=== PATIENT | female | born 1980 | race Caucasian/White ===

== ENCOUNTER 2023-07-25 10:54 | Outpatient (OUT) | payer OTHER, SELFPAY ==
--- NOTE | 2023-07-25 10:59 | ECG_ITS ---
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
== END 2023-07-25 10:55 | disposition home or self-care (01) ==
PROVIDERS: PCP Family Medicine; Visit Provider Obstetrics & Gynecology
DX: Z01.810 Encounter for preprocedural cardiovascular examination (principal); N83.299 Other ovarian cyst, unspecified side
CPT/HCPCS: 93005

== ENCOUNTER 2023-08-01 06:10 | Day surgery (SDC) | payer OTHER, SELFPAY ==
[2023-07-25 11:38] VITALS: BP 134/86; PULSE 59; RESP 16; TEMP 36.2; O2SAT 98; BMI 35.1
[2023-08-01] VITALS (11 sets, daily range): BP systolic 120–144; BP diastolic 69–110; PULSE 58–93; RESP 11–22; TEMP 36.1–36.4; O2SAT 92–98; BMI 34.1
--- OUTSIDE RECORDS SUMMARY | 2023-08-01 06:13 | XMS_ITS | CCD ---
Author Name Unknown Address [facility] [place] [address] Organization [facility] Care Team Providers Care Insole Cementer Name Role Phone Elisa Antony Unavailable Mariya Finn Unavailable Ele Friend Unavailable MD Elin Patel Primary Care Provider DO Surinder Del Castillo Attending Provider [phone] Malcolm Iglesias Unavailable DR SUKHDEEP SHAH Attending Unavailable DR SUKHDEEP SHAH Consulting Unavailable DR SUKHDEEP SHAH Admitting Unavailable MD Elin Patel Primary Care Provider [phone] SHREYA Ivey Attending Provider MD Malcolm Iglesias Attending Provider [phone] MD Maxx Cornelius Attending Provider Self, Referral Attending Provider Unavailable MD Elin Patel Primary Care Provider MD Elin Patel Attending Provider MD Elin Patel Primary Care Provider [phone] DO Surinder Del Castillo Attending Provider Elin Patel Primary Care Unavailable Maxx Cornelius Admitting UnavailMaxx Pa Attending UnavailElin Rosado Primary Care Unavailable Hafsa Ivey Admitting Unavailable Hafsa Ivey Attending Unavailable Elin Patel Attending Unavailable Elin Patel Admitting Unavailable Elin Patel Primary Care Unavailable Elin Patel Primary Care Unavailable Malcolm Iglesias Admitting Unavailable Malcolm Iglesias Attending Unavailable Surinder Del Castillo Admitting Unavailable Surinder Del Castillo Attending Unavailable Elin Patel Primary Care Unavailable NO FAMILY, PHYSICIAN Primary Care Unavailable Elisa Antony Admitting Unavailable Elisa Antony Attending Unavailable Self, Referral Admitting Unavailable Self, Referral Attending Unavailable Elin Patel Primary Care Unavailable Unavailable Primary Care Provider UnavailElin Rosado MD Primary Care Provider SAHIL SANTOYO Referring Unavailable ELIN PATEL Primary Care Unavailable Elin Patel MD Primary Care Provider ELIN PATEL Referring Unavailable ELIN PATEL Primary Care Unavailable Elin Patel MD Primary Care Provider ELIN PATEL Attending Unavailable SUKHDEEP SHAH Attending Unavailable SUKHDEEP SHAH Referring Unavailable Allergies Allergy Classification Reported Allergen(s) Allergy Type Date of Onset Reaction(s) Facility (1 source) Desonide Drug Allergy 6 [facility] Repository (3 sources) Wound Dressing Adhesive Propensity to adverse reactions to drug 3 [facility] Medications Current Medications Medication Drug Class(es) Dates Sig (Normalized) Sig (Original) amylase [id number] unt / lipase 83227 unt / protease [id number] unt delayed release oral capsule (10 sources) Start: 05-07-2022 take [id number] capsules by mouth three times daily at mealtime Jsuvqr-Sjwkqeue-Mfey ase (Creon) 36,000-114,000- 180,000 unit Capsule,Delayed Release(Dr/Ec) Active 1 CAP PO Three times daily May 07, 2022 1:00am administer with meals and/or snacks aspirin 81 mg delayed release oral tablet (8 sources) Platelet Aggregation Inhibitor, Nonsteroidal Anti-inflammatory Drug Start: 05-07-2022 take 81 mg by mouth once daily Aspirin Active 81 MG PO Daily May 07, 2022 1:00am cholecalciferol 0.125 mg oral tablet (10 sources) Vitamin D Start: 05-07-2022 take 1 tablet by mouth once daily Cholecalciferol (Vitamin D3) (Vitamin D3) 125 mcg (5,000 unit) Tablet Active 125 MCG PO Daily May 07, 2022 1:00am take 1 tablet by mouth in the mo rning cholecalciferol, vitamin D3, 2,000 units tablet Take 1 tablet (2,000 Units total) by mouth in the morning. 0 Active cholecalciferol (Vitamin D-3) 50 MCG (2000 UT) tablet 1 (one) time each day at the same time. 0 Active Cholecalciferol 50 MCG (2000 UT) TABS every 24 hours 0 Active Creon 31934 UNIT (14 sources) Start: 10-04-2020 take 1 capsule by mouth three times daily Creon 38653 UNIT 1 CAPSULE Orally THREE TIMES A DAY for 30 days September, Active estradiol 1 mg oral tablet (10 sources) Estrogen Start: 05-07-2022 take 1 mg by mouth once daily Estradiol Active 1 MG PO Daily May 07, 2022 1:00am off 1 week; repeat cycle End: 06-26-2023 take 1 tablet by mouth in the morning estradioL (ESTRACE) 0.5 mg tablet Take 1 tablet (0.5 mg total) by mouth in the morning. 0 Active take 1 tablet by mirian th in the morning estradioL (ESTRACE) 0.5 mg tablet Take 1 tablet (0.5 mg total) by mouth in the morning. 0 Active estradiol 0.5 mg / norethindrone acetate 0.1 mg oral tablet (2 sources) Estrogen Start: 02-24-2023 estradiol-norethindrone 0.5-0.1 MG tablet famotidine 20 mg oral tablet (1 source) Histamine-2 Receptor Antagonist Start: 06-13-2023 End: 07-13-2023 take 1 tablet by mouth once daily famotidine (PEPCID) 20 MG tablet Indications: Chronic GERD Take 1 tablet by mouth nightly 30 tablet 0 06/13/2023 07/13/2023 Active fexofenadine (13 sources) Histamine-1 Receptor Antagonist [place] Active FLUoxetine 40 mg oral capsule (20 sources) Serotonin Reuptake Inhibitor Start: 04-22-2023 take 1 capsule by mouth in the morning FLUoxetine (PROzac) 40 MG capsule Indications: Medication refill Take 1 capsule (40 mg) by mouth in the morning. 90 capsule 1 04/22/2023 Active Start: 05-07-2022 take 40 mg by mouth once daily Fluoxetine Active 40 MG PO Daily May 07, 2022 1:00am PROzac Active 24 hr metoprolol succinate 25 mg extended release oral tablet (20 sources) beta-Adrenergic Padmaja Start: 02-25-2023 take 1 tablet by mouth once daily metoprolol succinate (TOPROL XL) 25 MG extended release tablet Take 1 tablet by mouth daily 0 02/25/2023 Active Start: 11-01-2022 take 1 tablet by mirian th every twenty-four hours in the morning metoprolol succinate XL (TOPROL XL) 25 mg 24 hr tablet Take 1 tablet (25 mg total) by mouth in the morning. 0 11/01/2022 Active Start: 05-07-2022 take 25 mg by mouth once daily Metoprolol Succinate Active 25 MG PO Daily May 07, 2022 1:00am Metoprolol Succi jamil Active nitrofurantoin, macrocrystals 25 mg / nitrofurantoin, monohydrate 75 mg oral capsule (6 sources) Nitrofuran Antibacterial Start: 06-15-2022 take 1 capsule by mouth every twelve hours Macrobid 100 MG 1 cap(s) Orally 2 times a day for 5 day(s) May, Active Start: 03-06-2021 take 1 capsule by mo ut every twelve hours Macrobid 100 MG 1 cap(s) Orally bid for 5 day(s) Feb, Active pantoprazole 40 mg delayed release oral tablet (20 sources) Proton Pump Inhibitor Start: 03-01-2019 take 40 mg by mouth once daily Pantoprazole Active 40 MG PO Daily May 07, 2022 1:00am Start: 03-01-2019 take 1 tablet by mirian th every twelve hours Pantoprazole Sodium 40 MG 1 tablet Orally twice a day for 90 days Feb, Active phenazopyridine hydrochloride 200 mg oral tablet (6 sources) Start: 06-15-2022 take 1 tablet by mouth every eight hours Pyridium 200 MG 1 tablet after meals Orally Three times a day for 2 day(s) May, Active Start: 03-06-2021 take 2 tablets by mo uth every eight hours Pyridium 100 MG 2 tablets after meals Orally Three times a day for 2 day(s) Feb, Active rosuvastatin calcium 5 mg oral tablet (20 sources) HMG-CoA Reductase Inhibitor Start: 05-07-2022 take 1 tablet by mouth in the morning rosuvastatin (Crestor) 5 MG tablet Indications: Medication refill Take 1 tablet (5 mg) by mouth in the morning. 90 tablet 1 05/14/2023 Active Crestor Active Vitamin D3 (13 sources) Vitamin D3 Activ e Completed/Discontinued Medications Medication Drug Class(es) Dates Sig (Normalized) Sig (Original) dicyclomine hydrochloride 20 mg oral tablet (14 sources) Anticholinergic Start: 03-01-2019 take 1 tablet by mouth every twelve hours Dicyclomine HCl 20 MG 1 tablet Orally TWICE A DAY for 30 days Feb, Not-Taking 12 hr hyoscyamine sulfate 0.375 mg extended release oral tablet (14 sources) Start: 08-17-2020 take 1 tablet by mouth every twelve hours Levbid 0.375 MG 1 tablet Orally every 12 hrs for 30 day(s) Jul, Not-Taking loratadine 10 mg oral tablet (14 sources) take 1 tablet by mouth every twenty-four hours Claritin 10 MG 1 tablet Orally Once a day OTC Not-Taking Phentermine (14 sources) Sympathomimetic Amine Anorectic Adipex-P Not-Taking predniSONE (14 sources) predniSONE Not-Taking raNITIdine (14 sources) Histamine-2 Receptor Antagonist Ranitidine HCl Not-Taking sertraline 100 mg oral tablet (20 sources) Serotonin Reuptake Inhibitor Start: 03-03-2019 End: 05-07-2022 take 1 tablet by mouth once daily Sertraline (Zoloft) 100 mg Tablet Discontinued 100 MG PO Daily March 03, 2019 12:00am May 07, 2022 2:16pm take 2 tablets by [facility] every twenty-four hours Sertraline HCl 100 MG 2 tablet Orally Once a day Not-Taking Problems Active Problems Problem Classification Problem Date Documented Da te Episodic/Chronic Abdominal pain (2 sources) Pain in female pelvis; Translations: [Pelvic and perineal pain] 06-26-2023 Episodic Disorders of lipid metabolism (3 sources) Hypercholesterolemia; Translations: [Pure hypercholesterolemia, unspecified] Onset: 3 06-13-2023 Chronic Esophageal disorders (20 sources) Gastroesophageal reflux disease; Translations: [Gastro-esophageal reflux disease without esophagitis] Onset: 2 Resolved: 2 03-08-2019 Chronic Essential hypertension (3 sources) Hypertensive disorder; Translations: [Essential (primary) hypertension] Onset: 3 06-13-2023 Chronic Immunizations and screening for infectious disease (6 sources) Contact with and (suspected) exposure to other viral communicable diseases; Translations: [Encounter for screening for human papillomavirus (HPV)] Onset: 1 Resolved: 2 Episodic Mood disorders (3 sources) Depressive disorder; Translations: [Depression] Onset: 3 06-13-2023 Chronic Other gastrointestinal disorders (14 sources) Irritable bowel syndrome with diarrhea; Translations: [Irritable bowel syndrome with diarrhea] Chronic Other gastrointestinal disorders (14 sources) Incontinence of feces; Translations: [Full incontinence of feces] Episodic Other gastrointestinal disorders (7 sources) Difficulty swallowing; Translations: [Dysphagia, unspecified] Episodic Other nervous system disorders (3 sources) Difficulty walking; Translations: [Difficulty in walking, not elsewhere classified] Onset: 3 06-13-2023 Chronic Other nutritional; endocrine; and metabolic disorders (3 sources) Obesity; Translations: [Obesity, unspecified] Onset: 3 06-13-2023 Chronic Other screening for suspected conditions (not mental disorders or infectious disease) (4 sources) Encounter for screening for malignant neoplasm of cervix; Translations: [ENC SCREENING MALIG NEOPLASM CERV] Onset: 2 Episodic Other upper respiratory disease (3 sources) Seasonal allergic rhinitis; Translations: [Other seasonal allergic rhinitis] Onset: 3 06-13-2023 Chronic Ovarian cyst (2 sources) Cyst of ovary; Translations: [Unspecified ovarian cyst, unspecified side] 06-25-2023 Episodic Residual codes; unclassified (3 sources) Unrefreshed by sleep; Translations: [Other sleep disorders] Onset: 3 06-13-2023 Chronic Residual codes; unclassified (1 source) Sleep apnea; Translations: [Sleep apnea, unspecified] 06-20-2023 Chronic Residual codes; unclassified (1 source) Sleep apnea, unspecified; Translations: [Sleep apnea, unspecified] Onset: 4 Chronic Unclassified (1 source) Pain in left shoulder; Translations: [Pain in left shoulder] Onset: 3 Unclassified (1 source) Encounter for screening mammogram for malignant neoplasm of breast; Translations: [Encounter for screening mammogram for malignant neoplasm of breast] Onset: 3 Urinary tract infections (2 sources) Acute cystitis with hematuria; Translations: [Urinary tract infection, site not specified] Onset: 1 Resolved: 1 Episodic Past or Other Problems Problem Classification Problem Date Documented Da te Episodic/Chronic Genitourinary symptoms and ill-defined conditions (4 sources) Dysuria; Translations: [Hematuria, unspecified] Onset: 03-06-2021 Resolved: 03-06-2021 Episodic Other gastrointestinal disorders (20 sources) Irritable bowel syndrome; Translations: [Mixed irritable bowel syndrome] Onset: 11-12-2022 Resolved: 01-20-2023 03-08-2019 Chronic Other gastrointestinal disorders (3 sources) Dysphagia, unspecified; Translations: [Dysphagia, unspecified] Onset: 05-30-2022 Episodic Other gastrointestinal disorders (3 sources) Dysphagia; Translations: [Dysphagia, unspecified] Onset: 11-12-2022 06-13-2023 Episodic Other injuries and conditions due to external causes (2 sources) Muscle strain; Translations: [Other injury of unspecified body region, initial encounter] Onset: 11-12-2022 Resolved: 01-20-2023 01-20-2023 Episodic Other upper respiratory infections (1 source) Acute upper respiratory infection, unspecified; Translations: [Viral upper respiratory illness J06.9] Onset: 02-14-2021 Resolved: 02-14-2021 Episodic Pancreatic disorders (not diabetes) (3 sources) Pancreatic insufficiency; Translations: [Other specified diseases of pancreas] Onset: 01-20-2023 06-13-2023 Episodic Residual codes; unclassified (2 sources) Obstructive sleep apnea syndrome; Translations: [Obstructive sleep apnea (adult) (pediatric)] Onset: 11-12-2022 Resolved: 01-20-2023 01-20-2023 Chronic Unclassified (10 sources) Unclassified (2 sources) Exposure to COVID-19 virus Z20.822 Onset: 12-30-2021 Resolved: 12-30-2021 Results Test Name Value Interpretation Reference Range Facility US PELVISon 07-04-2023 US PELVIS EXAMINATION: US PELVIS HISTORY: Ovarian cyst. Pelvic pain. TECHNIQUE: Transabdominal and transvaginal ultrasound evaluation of the pelvis was performed. COMPARISON: Ultrasound March 20, 2018 FINDINGS: The uterus is absent. Right ovary is enlarged secondary to 2 large cysts, measuring approximately 14.7 x 6.6 x 10.7 cm. 2 simple appearing cyst of the right ovary measure 5.6 x 3.1 x 2.9 cm and 7.9 x 8.4 x 7.1 cm respectively. No definitive solid vascular component. Left ovary is normal in size measuring 3.3 x 2.2 x 1.8 cm. Normal sonographic appearance of the left ovary. No adnexal mass. There is no free fluid in the pelvis. IMPRESSION: 2 large simple appearing cysts of the right ovary. Consider continued surveillance with follow-up ultrasound in 3 months recommended. ELECTRONICALLY SIGNED BY: Quentin Vera, DO Normal Not Available CBC with Auto Differentialon 06-13-2023 Basophils (Bld) [#/Vol] 0.03 10*3/uL [facility] Basophils/100 WBC (Bld) 0 % 0 - 2 % B [facility] Eosinophils (Bld) [#/Vol] 0.11 10*3/uL [facility] Eosinophils/100 WBC (Bld) 2 % 0 - 5 % [facility] Erythrocyte distribution width (RBC) [Ratio] 12.3 % 12.1 - 15.2 % [facility] Hematocrit (Bld) [Volume fraction] 40.0 % 36.0 - 46.0 % [facility] Hemoglobin (Bld) [Mass/Vol] 13.4 g/dL 12.0 - 16.0 g/dL [facility] Immature granulocytes (Bld) [#/Vol] 0.02 10*3/uL [facility] Immature granulocytes/100 WBC (Bld) 0 % 0 - 5 % [facility] Lymphocytes/100 WBC (Bld) 32 % 15 - 40 % [facility] Lymphocytes/100 WBC (Bld) 2.24 % [facility] MCH (RBC) [Entitic mass] 29.8 pg 26.0 - 34.0 pg [facility] MCHC (RBC) [Mass/Vol] 33.5 g/dL 31.0 - 37.0 g/dL [facility] MCV (RBC) [Entitic vol] 88.9 fL 80.0 - 100.0 fL [facility] Monocytes/100 WBC (Bld) 7 % 4 - 8 % B ON [facility] Monocytes/100 WBC (Bld) 0.46 % B ON [facility] Neutrophils/100 WBC (Bld) 59 % 47 - 75 % [facility] Platelet mean volume (Bld) [Entitic vol] 8.3 fL 6.0 - 12.0 fL [facility] Platelets (Bld) [#/Vol] 341 10*3/uL [facility] RBC (Bld) [#/Vol] 4.50 10*6/uL 4.00 - 5.2 0 m/uL [facility] Segmented neutrophils/100 WBC (Bld) 4.18 % [facility] WBC other (Bld) [#/Vol] 7.0 B ON [facility] CBC with Diffon 06-13-2023 Abs. Basophil 0.03 k/uL Normal 0.00-0.20 [facility] Comment on above: Performed By: #### C P, CDP #### [facility] [address] [place] [id number] Heating Technician: Angel Valdes MD Abs.Imm.Granulocyte 0.02 k/uL Normal 0.00-0.30 [facility] Comment on above: Performed By: #### C P, CDP #### [facility] [address] [facility] [facility] [place] [address] Heating Technician: Angel Valdes MD Abs.Neutrophil (Seg) 4.18 k/uL Normal 2.5-7.[address] [facility] Comment on above: Performed By: #### C P, CDP #### [facility] [address] [place], [place] [id number] Heating Technician: Angel Valdes MD Basophils/100 WBC (Bld) 0 % Normal 0-2 M [facility] Comment on above: Performed By: #### C P, CDP #### [facility] [address] [place], [place] [id number] Heating Technician: Angel Valdes MD Eosinophils (Bld) [#/Vol] 0.11 10*3/uL Normal 0.00-0.40 [facility] Comment on above: Performed By: #### C P, CDP #### [facility] [address] [place], [place] [id number] Heating Technician: Angel Valdes MD Eosinophils/100 WBC (Bld) 2 % Normal 0-5 [facility] Comment on above: Performed By: #### C P, CDP #### [facility] [address] [place], [place] [id number] Heating Technician: Angel Valdes MD Erythrocyte distribution width (RBC) [Ratio] 12.3 % Normal 12.1-15.2 [facility] Comment on above: Performed By: #### C P, CDP #### [facility] [address] [place], [place] [id number] Heating Technician: Angel Valdes MD Hematocrit (Bld) [Volume fraction] 40.0 % Normal 36.0-46.0 [facility] Comment on above: Performed By: #### C P, CDP #### [facility] [address] [place], [place] [id number] Heating Technician: Angel Valdes MD Hemoglobin (Bld) [Mass/Vol] 13.4 g/dL Normal 12.0-16.0 [facility] Comment on above: Performed By: #### C P, CDP #### [facility] [address] [place], [place] [id number] Heating Technician: Angel Valdes MD Immature granulocytes/100 WBC (Bld) 0 % Normal 0-5 [facility] Comment on above: Performed By: #### C P, CDP #### [facility] [address] [place] [address] Heating Technician: Angel Valdes MD Lymphocytes (Bld) [#/Vol] 2.24 10*3/uL Normal 1.00-4.80 [facility] Comment on above: Performed By: #### C P, CDP #### [facility] [address] [place] [address] Heating Technician: Angel Valdes MD Lymphocytes/100 WBC (Bld) 32 % Normal 15-40 [facility] Comment on above: Performed By: #### C P, CDP #### [facility] [address] [place] [address] Heating Technician: Angel Valdes MD MCH (RBC) [Entitic mass] 29.8 pg Normal 26.0-34.0 [facility] Comment on above: Performed By: #### C P, CDP #### [facility] [address] [place] [address] Heating Technician: Angel Valdes MD MCHC (RBC) [Mass/Vol] 33.5 g/dL Normal 31.0-37.0 [facility] Comment on above: Performed By: #### C P, CDP #### [facility] [address] [place] [address] Heating Technician: Angel Valdes MD MCV (RBC) [Entitic vol] 88.9 fL Normal 80.0-100.0 [facility] Comment on above: Performed By: #### C P, CDP #### [facility] [address] [place] [address] Heating Technician: Angel Valdes MD Monocytes (Bld) [#/Vol] 0.46 10*3/uL Normal 0.00-1.00 [facility] Comment on above: Performed By: #### C P, CDP #### [facility] [address] [place] [address] Heating Technician: Angel Valdes MD Monocytes/100 WBC (Bld) 7 % Normal 4-8 M [facility] Comment on above: Performed By: #### C P, CDP #### [facility] [address] [place] [address] Heating Technician: Angel Valdes MD Neutrophil (Seg) 59 % Normal 47-75 [facility] Comment on above: Performed By: #### C P, CDP #### [facility] [address] [place] [address] Heating Technician: Angel Valdes MD Platelet mean volume (Bld) [Entitic vol] 8.3 fL Normal 6.0-12.0 [facility] Comment on above: Performed By: #### C P, CDP #### [facility] [address] [place] [address] Heating Technician: Angel Valdes MD Platelets (Bld) [#/Vol] 341 10*3/uL Normal 140-450 [facility] Comment on above: Performed By: #### C P, CDP #### [facility] [address] [place], [place] [id number] Heating Technician: Angel Valdes MD RBC (Bld) [#/Vol] 4.50 10*6/uL Normal 4.00-5.20 [facility] Comment on above: Performed By: #### C P, CDP #### [facility] [address] [place] [address] Heating Technician: Angel Valdes MD WBC (Bld) [#/Vol] 7.0 10*3/uL Normal 3.5-11.0 [facility] Comment on above: Performed By: #### C P, CDP #### [facility] [address] [place] [address] Heating Technician: Angel Valdes MD Comp Metabolic Profon 2023 Albumin [Mass/Vol] 4.2 g/dL Normal 3.5-5.2 [facility] Comment on above: Performed By: #### C P, CDP #### [facility] [address] [place] [address] Heating Technician: Angel Valdes MD Alkaline Phos 75 U/L Normal 35-104 [facility] Comment on above: Performed By: #### C P, CDP #### [facility] [address] [place] [address] Heating Technician: Angel Valdes MD ALT [Catalytic activity/Vol] 16 U/L Normal 5-33 [facility] Comment on above: Performed By: #### C P, CDP #### [facility] [address] [place] [address] Heating Technician: Angel Valdes MD Anion gap [Moles/Vol] 11 mmol/L Normal 9-17 [facility] Comment on above: Performed By: #### C P, CDP #### [facility] [address] [place] [address] Heating Technician: Angel Valdes MD AST [Catalytic activity/Vol] 15 U/L Normal <32 [facility] Comment on above: Performed By: #### C P, CDP #### [facility] [address] [facility] [place] [id number] Heating Technician: Angel Valdes MD Bilirubin [Mass/Vol] 0.3 mg/dL Normal 0.3-1.[address] [facility] Comment on above: Performed By: #### C P, CDP #### [facility] [address] [place], [place] [id number] Heating Technician: Angel Valdes MD BUN/CRE Ratio 11 Normal 9-20 [facility] Comment on above: Performed By: #### C P, CDP #### [facility] [address] [place], [place] [id number] Heating Technician: Angel Valdes MD Calcium [Mass/Vol] 10.3 mg/dL Normal 8.6-10.4 [facility] Comment on above: Performed By: #### C P, CDP #### [facility] [address] [place], [place] [id number] Heating Technician: Angel Valdes MD Chloride [Moles/Vol] 101 mmol/L Normal 98-[address] [facility] Comment on above: Performed By: #### C P, CDP #### [facility] [address] [place], [place] [id number] Heating Technician: Angel Valdes MD CO2 [Moles/Vol] 25 mmol/L Normal 20-31 [facility] Comment on above: Performed By: #### C P, CDP #### [facility] [address] [place] [address] Heating Technician: Angel Valdes MD Creatinine [Mass/Vol] 0.7 mg/dL Normal 0.5-0.9 [facility] Comment on above: Performed By: #### C P, CDP #### [facility] [address] [place] [address] Heating Technician: Angel Valdes MD GFR/1.73 sq M.predicted among non-blacks MDRD (S/P/Bld) [Vol rate/Area] mL/min/{1.73_m2} Normal >60 [facility] Comment on above: Result Comment: These results are not intended for use in patients <18 years of age. eGFR results are calculated without a race factor using the 2020 CKD-EPI equation. Careful clinical correlation is recommended, particularly when comparing to results calculated using previous equations. The CKD-EPI equation is less accurate in patients with extremes of muscle mass, extra-renal metabolism of creatine, excessive creatine ingestion, or following therapy that affects renal tubular secretion. Performed By: #### C P, CDP #### [facility] [address], [place] [id number] Heating Technician: Angel Valdes MD Glucose [Mass/Vol] 120 mg/dL High 70-99 [facility] Comment on above: Performed By: #### C P, CDP #### [facility] [address], [place] [id number] Heating Technician: Angel Valdes MD Potassium [Moles/Vol] 4.0 mmol/L Normal 3.7-5.3 [facility] Comment on above: Performed By: #### C P, CDP #### [facility] [address], [place] [id number] Heating Technician: Angel Valdes MD Protein [Mass/Vol] 7.4 g/dL Normal 6.4-8.3 [facility] Comment on above: Performed By: #### C P, CDP #### [facility] [address], [place] [id number] Heating Technician: Angel Valdes MD Sodium [Moles/Vol] 137 mmol/L Normal 135-144 [facility] Comment on above: Performed By: #### C P, CDP #### [facility] [address], [place] [id number] Heating Technician: Angel Valdes MD Urea nitrogen [Mass/Vol] 8 mg/dL Normal 6-20 [facility] Comment on above: Performed By: #### C P, CDP #### [facility] [address], [place] [id number] Heating Technician: Angel Valdes MD Comprehensive Metabolic Pane [facility] 06-13-2023 Albumin [Mass/Vol] 4.2 g/dL 3.5 - 5.2 g/dL [facility] ALP [Catalytic activity/Vol] 75 U/L 35 - 104 U/L [facility] ALT [Catalytic activity/Vol] 16 U/L 5 - 33 U/L [facility] Anion gap [Moles/Vol] 11 mmol/L 9 - 17 mmol/L [facility] AST [Catalytic activity/Vol] 15 U/L NINF - 32 U/L [facility] Bilirubin [Mass/Vol] 0.3 mg/dL 0.3 - 1 .2 mg/dL [facility] Calcium [Mass/Vol] 10.3 mg/dL 8.6 - 10. 4 mg/dL [facility] Chloride [Moles/Vol] 101 mmol/L 98 - 10 7 mmol/L [facility] CO2 [Moles/Vol] 25 mmol/L 20 - 31 mmol/L [facility] Creatinine [Mass/Vol] 0.7 mg/dL 0.5 - 0.9 mg/dL [facility] GFR/1.73 sq M.predicted MDRD (S/P/Bld) [Vol rate/Area] - PINF [facility] Comment on above: These results are not intended for use in patients <18 years of age. eGFR results are calculated without a race factor using the 2020 CKD-EPI equation. Careful clinical correlation is recommended, particularly when comparing to results calculated using previous equations. The CKD-EPI equation is less accurate in patients with extremes of muscle mass, extra-renal metabolism of creatine, excessive creatine ingestion, or following therapy that affects renal tubular secretion. Glucose [Mass/Vol] 120 mg/dL High 70 - 99 mg/dL [facility] Interpretation and review of laboratory results Abnormal [facility] Potassium [Moles/Vol] 4.0 mmol/L 3.7 - 5.3 mmol/L [facility] Protein [Mass/Vol] 7.4 g/dL 6.4 - 8.3 g/dL [facility] Sodium [Moles/Vol] 137 mmol/L 135 - 144 mmol/L [facility] Urea nitrogen [Mass/Vol] 8 mg/dL 6 - 20 mg/dL [facility] Urea nitrogen/Creatinine [Mass ratio] 11 mg/mg 9 - 20 [facility] Alanine aminotransferase [En zymatic activity/volume] in Serum or PlasmaOrdered By: Surinder Del Castillo on 12-24-2022 ALT [Catalytic activity/Vol] 16 U/L 7-52 [facility] Albumin [Mass/volume] in Ser um or Plasma by Bromocresol green (BCG) dye binding methoOrdered By: Surinder Del Castillo on 12-24-2022 Albumin BCG dye [Mass/Vol] 4.3 g/dL 3.5-5.7 [facility] Alkaline phosphatase [Enzyma tic activity/volume] in Serum or PlasmaOrdered By: Surinder Del Castillo on 12-24-2022 ALP [Catalytic activity/Vol] 66 U/L 34-104 [facility] Aspartate aminotransferase [ Enzymatic activity/volume] in Serum or PlasmaOrdered By: Surinder Del Castillo on 12-24-2022 AST [Catalytic activity/Vol] 16 U/L 13-39 [facility] Basophils Auto (Bld) [#/Vol] Ordered By: Surinder Del Castillo on 12-24-2022 Basophils (Bld) [#/Vol] 0.0 10*3/uL 0.0-0.2 [facility] Basophils/100 WBC Auto (Bld) Ordered By: Surinder Del Catsillo on 12-24-2022 Basophils/100 WBC (Bld) 0.5 % . [facility] Bilirubin.total [Mass/volume ] in Serum or PlasmaOrdered By: Surinder Del Castillo on 12-24-2022 Bilirubin [Mass/Vol] 0.3 mg/dL 0.3-1.0 [facility] Calcium [Mass/volume] in Ser um or PlasmaOrdered By: Surinder Del Castillo on 12-24-2022 Calcium [Mass/Vol] 11.0 mg/dL 8.6-10.[address] [facility] Carbon dioxide, total [Moles /volume] in Serum or PlasmaOrdered By: Surinder Del Castillo on 12-24-2022 CO2 [Moles/Vol] 29.3 mmol/L 21.0-31.0 [facility] Chloride [Moles/volume] in S carlitos or PlasmaOrdered By: Surinder Del Castillo on 12-24-2022 Chloride [Moles/Vol] 105 mmol/L 98-107 [facility] Cholesterol [Mass/volume] in Serum or PlasmaOrdered By: Surinder Del Castillo on 12-24-2022 Cholesterol [Mass/Vol] 156 mg/dL 140-200 [facility] Comment on above: Chol less than 200 m g/dl low riskChol 201-239 mg/dl borderline riskChol 240 mg/dl and greater high risk Cholesterol in LDL Calc [Mas s/Vol]Ordered By: Surinder Del Castillo on 12-24-2022 Cholesterol in LDL [Mass/Vol] 48 mg/dL 0-100 [facility] Comment on above: LDL ATP III CLASSIFI CATIONLDL less than 100 mg/dL OptimalLDL 100-129 mg/dL Near or above optimalLDL 130-159 mg/dL Borderline highLDL 160-189 mg/dL HighLDL greater than 189 mg/dL Very high Cholesterol in VLDL Calc [Ma ss/Vol]Ordered By: Surinder Del Castillo on 12-24-2022 Cholesterol in VLDL [Mass/Vol] 60 mg/dL [facility] Creatinine [Mass/volume] in Serum or PlasmaOrdered By: Surinder Del Castillo on 12-24-2022 Creatinine [Mass/Vol] 0.74 mg/dL 0.60-1.20 [facility] Employee Comp Metabolic Pane laverne 12-24-2022 Albumin [Mass/Vol] 4.3 g/dL Normal 3.5-5.[address] [facility] Comment on above: Performed By: #### P ILLAR LIPID, PILLAR TSH, PILLAR CBC, PILLAR CMP #### [facility] [address] [place] [address] [place] #### NICOTINE QUAL #### [facility] , Albumin/Globulin [Mass ratio] 1.7 {ratio} Normal [facility] Comment on above: Performed By: #### P ILLAR LIPID, PILLAR TSH, PILLAR CBC, PILLAR CMP #### [facility] [address] [place] [address] [place] #### NICOTINE QUAL #### [facility] , ALP [Catalytic activity/Vol] 66 U/L Normal 34-104 [facility] Comment on above: Performed By: #### P ILLAR LIPID, PILLAR TSH, PILLAR CBC, PILLAR CMP #### [facility] [address] [place] [address] [place] #### NICOTINE QUAL #### [facility] , ALT [Catalytic activity/Vol] 16 U/L Normal 7-52 [facility] Comment on above: Performed By: #### P ILLAR LIPID, PILLAR TSH, PILLAR CBC, PILLAR CMP #### [facility] [address] [place] [address] [place] #### NICOTINE QUAL #### [facility] , Anion gap [Moles/Vol] 10.4 mmol/L Normal 6.0-15.0 [facility] Comment on above: Performed By: #### P ILLAR LIPID, PILLAR TSH, PILLAR CBC, PILLAR CMP #### [facility] [address] [place] [address] [place] #### NICOTINE QUAL #### [facility] , AST [Catalytic activity/Vol] 16 U/L Normal 13-39 [facility] Comment on above: Performed By: #### P ILLAR LIPID, PILLAR TSH, PILLAR CBC, PILLAR CMP #### [facility] [address] [place] [address] #### NICOTINE QUAL #### [facility] , Bilirubin [Mass/Vol] 0.3 mg/dL Normal 0.3-1.0 [facility] Comment on above: Performed By: #### P ILLAR LIPID, PILLAR TSH, PILLAR CBC, PILLAR CMP #### [facility] [address] [place] [address] [place] #### NICOTINE QUAL #### [facility] , Calcium [Mass/Vol] 11.0 mg/dL High 8.6-10.[address] [facility] Comment on above: Performed By: #### P ILLAR LIPID, PILLAR TSH, PILLAR CBC, PILLAR CMP #### [facility] [address] [place] [address] [place] #### NICOTINE QUAL #### [facility] , Chloride [Moles/Vol] 105 mmol/L Normal 98-107 [facility] Comment on above: Performed By: #### P ILLAR LIPID, PILLAR TSH, PILLAR CBC, PILLAR CMP #### [facility] [address] [place] [address] [place] #### NICOTINE QUAL #### [facility] , CO2 [Moles/Vol] 29.3 mmol/L Normal 21.0-31.0 [facility] Comment on above: Performed By: #### P ILLAR LIPID, PILLAR TSH, PILLAR CBC, PILLAR CMP #### [facility] [address] [place] [address] [place] #### NICOTINE QUAL #### [facility] , Creatinine [Mass/Vol] 0.74 mg/dL Normal 0.60-1.20 [facility] Comment on above: Performed By: #### P ILLAR LIPID, PILLAR TSH, PILLAR CBC, PILLAR CMP #### [facility] [address] [place] [address] [place] #### NICOTINE QUAL #### [facility] , GFR/1.73 sq M.predicted MDRD (S/P/Bld) [Vol rate/Area] mL/min/{1.73_m2} Normal [facility] Comment on above: Performed By: #### P ILLAR LIPID, PILLAR TSH, PILLAR CBC, PILLAR CMP #### [facility] [address] [place] [address] [place] #### NICOTINE QUAL #### [facility] , Globulin (S) [Mass/Vol] 2.5 g/dL Normal [facility] Comment on above: Performed By: #### P ILLAR LIPID, PILLAR TSH, PILLAR CBC, PILLAR CMP #### [facility] [address] [place] [address] [place] #### NICOTINE QUAL #### [facility] , Glucose [Mass/Vol] 84 mg/dL Normal 70-[address] [facility] Comment on above: Performed By: #### P ILLAR LIPID, PILLAR TSH, PILLAR CBC, PILLAR CMP #### [facility] [address] [place] [address] #### NICOTINE QUAL #### [facility] , Potassium [Moles/Vol] 3.7 mmol/L Normal 3.5-5.1 [facility] Comment on above: Performed By: #### P ILLAR LIPID, PILLAR TSH, PILLAR CBC, PILLAR CMP #### [facility] [address] [place] [address] [place] #### NICOTINE QUAL #### [facility] , Protein [Mass/Vol] 6.8 g/dL Normal 6.4-8.[address] [facility] Comment on above: Performed By: #### P ILLAR LIPID, PILLAR TSH, PILLAR CBC, PILLAR CMP #### [facility] [address] [place] [address] #### NICOTINE QUAL #### [facility] , Sodium [Moles/Vol] 141 mmol/L Normal 136-[address] [facility] Comment on above: Performed By: #### P ILLAR LIPID, PILLAR TSH, PILLAR CBC, PILLAR CMP #### [facility] [address] [place] [address] [place] #### NICOTINE QUAL #### [facility] , Urea nitrogen [Mass/Vol] 13 mg/dL Normal 7-25 [facility] Comment on above: Performed By: #### P ILLAR LIPID, PILLAR TSH, PILLAR CBC, PILLAR CMP #### [facility] [address] [place] [address] [place] #### NICOTINE QUAL #### [facility] , Employee Complete Blood Coun ton 12-24-2022 Basophils (Bld) [#/Vol] 0.0 10*3/uL Normal 0.0-0.2 [facility] Comment on above: Result Comment: PERF ORMED BY: [place] [address] PATHOLOGIST TUMBLER OPERATOR LUCERO AREVALO M.D. Performed By: #### P ILLAR LIPID, PILLAR TSH, PILLAR CBC, PILLAR CMP #### [facility] [address] [place] [address] #### NICOTINE QUAL #### [facility] , Basophils/100 WBC (Bld) 0.5 % Normal . [facility] Comment on above: Performed By: #### P ILLAR LIPID, PILLAR TSH, PILLAR CBC, PILLAR CMP #### [facility] [address] [place] [address] [place] #### NICOTINE QUAL #### [facility] , Eosinophils (Bld) [#/Vol] 0.1 10*3/uL Normal 0.0-0.45 [facility] Comment on above: Performed By: #### P ILLAR LIPID, PILLAR TSH, PILLAR CBC, PILLAR CMP #### [facility] [address] [place] [address] [place] #### NICOTINE QUAL #### [facility] , Eosinophils/100 WBC (Bld) 1.1 % Normal . [facility] Comment on above: Performed By: #### P ILLAR LIPID, PILLAR TSH, PILLAR CBC, PILLAR CMP #### [facility] [address] [place] [address] [place] #### NICOTINE QUAL #### [facility] , Erythrocyte distribution width (RBC) [Ratio] 12.8 % Normal 11.9-15.3 [facility] Comment on above: Performed By: #### P ILLAR LIPID, PILLAR TSH, PILLAR CBC, PILLAR CMP #### [facility] [address] [place] [address] [place] #### NICOTINE QUAL #### [facility] , Hematocrit (Bld) [Volume fraction] 38.9 % Normal 34.0-46.4 [facility] Comment on above: Performed By: #### P ILLAR LIPID, PILLAR TSH, PILLAR CBC, PILLAR CMP #### [facility] [address] [place] [address] #### NICOTINE QUAL #### [facility] , Hemoglobin (Bld) [Mass/Vol] 13.2 g/dL Normal 11.8-15.4 [facility] Comment on above: Performed By: #### P ILLAR LIPID, PILLAR TSH, PILLAR CBC, PILLAR CMP #### [address] #### NICOTINE QUAL #### [facility] , Lymphocytes (Bld) [#/Vol] 2.2 10*3/uL Normal 1.00-4.8 [facility] Comment on above: Performed By: #### P ILLAR LIPID, PILLAR TSH, PILLAR CBC, PILLAR CMP #### [address] #### NICOTINE QUAL #### [facility] , Lymphocytes/100 WBC (Bld) 30.4 % Normal . [facility] Comment on above: Performed By: #### P ILLAR LIPID, PILLAR TSH, PILLAR CBC, PILLAR CMP #### [address] #### NICOTINE QUAL #### [facility] , MCH (RBC) [Entitic mass] 30.8 pg Normal 24.7-34.3 [facility] Comment on above: Performed By: #### P ILLAR LIPID, PILLAR TSH, PILLAR CBC, PILLAR CMP #### [facility] [address] [place] [address] [place] #### NICOTINE QUAL #### [facility] , MCV (RBC) [Entitic vol] 90.9 fL Normal 80-100 [facility] Comment on above: Performed By: #### P ILLAR LIPID, PILLAR TSH, PILLAR CBC, PILLAR CMP #### [facility] [address] [place] [address] [place] #### NICOTINE QUAL #### [facility] , Mean Corpuscular HGB Conc 33.9 g/dL Normal 32.0-35.0 [facility] Comment on above: Performed By: #### P ILLAR LIPID, PILLAR TSH, PILLAR CBC, PILLAR CMP #### [facility] [address] [place] [address] [place] #### NICOTINE QUAL #### [facility] , Monocytes (Bld) [#/Vol] 0.7 10*3/uL Normal 0.0-0.8 [facility] Comment on above: Performed By: #### P ILLAR LIPID, PILLAR TSH, PILLAR CBC, PILLAR CMP #### [address] #### NICOTINE QUAL #### [facility] , Monocytes/100 WBC (Bld) 9.6 % Normal . [facility] Comment on above: Performed By: #### P ILLAR LIPID, PILLAR TSH, PILLAR CBC, PILLAR CMP #### [place] [address] [place] #### NICOTINE QUAL #### [facility] , Neutrophils (Bld) [#/Vol] 4.2 10*3/uL Normal 1.8-7.7 [facility] Comment on above: Performed By: #### P ILLAR LIPID, PILLAR TSH, PILLAR CBC, PILLAR CMP #### [facility] [address] [place] [address] [place] #### NICOTINE QUAL #### [facility] , Neutrophils/100 WBC (Bld) 58.4 % Normal . [facility] Comment on above: Performed By: #### P ILLAR LIPID, PILLAR TSH, PILLAR CBC, PILLAR CMP #### [facility] [address] [place] [address] [place] #### NICOTINE QUAL #### [facility] , NRBC% 0.2 /100{WBC} Normal 0-0.5 [facility] Comment on above: Performed By: #### P ILLAR LIPID, PILLAR TSH, PILLAR CBC, PILLAR CMP #### [facility] [address] [place] [address] #### NICOTINE QUAL #### [facility] , Platelet mean volume (Bld) [Entitic vol] 7.5 fL Normal 6.3-10.7 [facility] Comment on above: Performed By: #### P ILLAR LIPID, PILLAR TSH, PILLAR CBC, PILLAR CMP #### [facility] [address] [place] [address] #### NICOTINE QUAL #### [facility] , Platelets (Bld) [#/Vol] 404 10*3/uL Normal 150-450 [facility] Comment on above: Performed By: #### P ILLAR LIPID, PILLAR TSH, PILLAR CBC, PILLAR CMP #### [facility] [address] [place] [address] #### NICOTINE QUAL #### [facility] , RBC (Bld) [#/Vol] 4.28 10*6/uL Normal 3.60-5.00 [facility] Comment on above: Performed By: #### P ILLAR LIPID, PILLAR TSH, PILLAR CBC, PILLAR CMP #### [facility] [address] [place] [address] [place] #### NICOTINE QUAL #### [facility] , WBC (Bld) [#/Vol] 7.2 10*3/uL Normal 3.8-11.[address] [facility] Comment on above: Performed By: #### P ILLAR LIPID, PILLAR TSH, PILLAR CBC, PILLAR CMP #### [facility] [address] [place] [address] [place] #### NICOTINE QUAL #### [facility] , Employee Lipid Profileon Cholesterol [Mass/Vol] 156 mg/dL Normal 140-200 [facility] Comment on above: Result Comment: Chol less than 200 mg/dl low risk Chol 201-239 mg/dl borderline risk Chol 240 mg/dl and greater high risk Performed By: #### P ILLAR LIPID, PILLAR TSH, PILLAR CBC, PILLAR CMP #### [place] [address] [place] #### NICOTINE QUAL #### [facility] , Cholesterol in HDL [Mass/Vol] 48 mg/dL Normal 23-92 [facility] Comment on above: Result Comment: HDL CHOL ATP-III CLASSIFICATION Cardiovascular Risk HDL > or equal to 60 mg/dL LOW HDL < 40 mg/dL HIGH Performed By: #### P ILLAR LIPID, PILLAR TSH, PILLAR CBC, PILLAR CMP #### [address] #### NICOTINE QUAL #### [facility] , Cholesterol.total/Ashely sterol in HDL [Mass ratio] 3.3 {ratio} Normal <5.0 [facility] Comment on above: Performed By: #### P ILLAR LIPID, PILLAR TSH, PILLAR CBC, PILLAR CMP #### [facility] [address] [place] [address] #### NICOTINE QUAL #### [facility] , LDL Cholesterol,Calculated 48 mg/dL Normal 0-100 [facility] Comment on above: Result Comment: LDL ATP III CLASSIFICATION LDL less than 100 mg/dL Optimal LDL 100-129 mg/dL Near or above optimal LDL 130-159 mg/dL Borderline high LDL 160-189 mg/dL High LDL greater than 189 mg/dL Very high Performed By: #### P ILLAR LIPID, PILLAR TSH, PILLAR CBC, PILLAR CMP #### [facility] [address] [place] [address] [place] #### NICOTINE QUAL #### [facility] , Triglyceride w/Reflex 302 mg/dL High 0-149 [facility] Comment on above: Result Comment: TRIG ATP III CLASSIFICATION TRIG less than 150 mg/dL Normal TRIG 150-199 mg/dL Borderline high TRIG 200-500 mg/dL High TRIG greater than 500 mg/dL Very high Standard traceable to the Center for Disease Conrtrol and Prevention (CDC) test method. Performed By: #### P ILLAR LIPID, PILLAR TSH, PILLAR CBC, PILLAR CMP #### [place] [address] [place] #### NICOTINE QUAL #### [facility] , VLDL CHOLESTEROL 60 mg/dL Normal [facility] Comment on above: Performed By: #### P ILLAR LIPID, PILLAR TSH, PILLAR CBC, PILLAR CMP #### [facility] [address] [place] [address] [place] #### NICOTINE QUAL #### [facility] , Employee Thyroid Stim Hormon demi 12-24-2022 Employee Thyroid Stim Hormone 3.29 u[iU]/mL Normal 0.45-5.33 [facility] Comment on above: Result Comment: PERF ORMED BY: [place] [address] PATHOLOGIST TUMBLER OPERATOR LUCERO AREVALO M.D. Performed By: #### P ILLAR LIPID, PILLAR TSH, PILLAR CBC, PILLAR CMP #### [address] #### NICOTINE QUAL #### [facility] , Eosinophils Auto (Bld) [#/Vo l]Ordered By: Surinder Del Castillo on 12-24-2022 Eosinophils (Bld) [#/Vol] 0.1 10*3/uL 0.0-0.45 [facility] Eosinophils/100 WBC Auto (Bl d)Ordered By: Surinder Del Castillo on 12-24-2022 Eosinophils/100 WBC (Bld) 1.1 % . [facility] Erythrocyte distribution wid th Auto (RBC) [Ratio]Ordered By: Surinder Del Castillo on 12-24-2022 Erythrocyte distribution width (RBC) [Ratio] 12.8 % 11.9-15.3 [facility] Globulin Calc (S) [Mass/Vol] Ordered By: Surinder Del Castillo on 12-24-2022 Globulin (S) [Mass/Vol] 2.5 g/dL [facility] Glucose [Mass/volume] in Ser um or PlasmaOrdered By: Surinder Del Castillo on 12-24-2022 Glucose [Mass/Vol] 84 mg/dL 70-[address] [facility] Hematocrit Auto (Bld) [Volum e fraction]Ordered By: Surinder Del Castillo on 12-24-2022 Hematocrit (Bld) [Volume fraction] 38.9 % 34.0-46.4 [facility] Hemoglobin [Mass/volume] in BloodOrdered By: Surinder Del Castillo on 12-24-2022 Hemoglobin (Bld) [Mass/Vol] 13.2 g/dL 11.8-15.4 [facility] Leukocytes [#/volume] correc candy for nucleated erythrocytes in Blood by Automated counOrdered By: Surinder Del Castillo on 12-24-2022 WBC corrected for nucl RBC Auto (Bld) [#/Vol] 7.2 10*3/uL 3.8-11.6 [facility] Lymphocytes Auto (Bld) [#/Vo l]Ordered By: Surinder Del Castillo on 12-24-2022 Lymphocytes (Bld) [#/Vol] 2.2 10*3/uL 1.00-4.8 [facility] Lymphocytes/100 WBC Auto (Bl d)Ordered By: Surinder Del Castillo on 12-24-2022 Lymphocytes/100 WBC (Bld) 30.4 % . [facility] MCH Auto (RBC) [Entitic mass ]Ordered By: Surinder Del Castillo on 12-24-2022 MCH (RBC) [Entitic mass] 30.8 pg 24.7-34.3 [facility] MCHC Auto (RBC) [Mass/Vol]Or dered By: Surinder Del Castillo on 12-24-2022 MCHC (RBC) [Mass/Vol] 33.9 g/dL 32.0-35.0 [facility] MCV Auto (RBC) [Entitic vol] Ordered By: Surinder Del Castillo on 12-24-2022 MCV (RBC) [Entitic vol] 90.9 fL 80-100 [facility] Monocytes Auto (Bld) [#/Vol] Ordered By: Surinder Del Castillo on 12-24-2022 Monocytes (Bld) [#/Vol] 0.7 10*3/uL 0.0-0.8 [facility] Monocytes/100 WBC Auto (Bld) Ordered By: Surinder Del Castillo on 12-24-2022 Monocytes/100 WBC (Bld) 9.6 % . [facility] Neutrophils Auto (Bld) [#/Vo l]Ordered By: Surinder Del Castillo on 12-24-2022 Neutrophils (Bld) [#/Vol] 4.2 10*3/uL 1.8-7.7 [facility] Neutrophils/100 WBC Auto (Bl d)Ordered By: Surinder Del Castillo on 12-24-2022 Neutrophils/100 WBC (Bld) 58.4 % . [facility] Nicotine Metabolite, Qualon 12-24-2022 Nicotine Metabolite Negative Normal Cutoff=25 [facility] Comment on above: Result Comment: Perf ormed at: [facility] - [facility] [address] [id number] Heating Technician: Jesi Lombardo MD, Phone: [phone] PERFORMED BY: [place] [address] PATHOLOGIST TUMBLER OPERATOR LUCERO AREVALO M.D. Performed By: #### P ILLAR LIPID, PILLAR TSH, PILLAR CBC, PILLAR CMP #### [facility] [address] [place] [address] [place] #### NICOTINE QUAL #### [facility] , No Panel InformationOrdered By: Surinder Del Castillo on 12-24-2022 Estimated GFR (CKD-EPI) > 60.0 mL/Min [facility] Nicotine Metabolite Negative Cutoff=25 [facility] Comment on above: Performed at: [facility] [address] [id number] Director: Jesi Lombardo MD, Phone: [phone] Pharmacy Creatinine Clearance (Chem N/A [facility] Nucleated erythrocytes [Pres ence] in Blood by Automated countOrdered By: Surinder Del Castillo on 12-24-2022 Nucleated RBC Auto Ql (Bld) 0.2 /100{WBC} 0-0.5 [facility] Platelet mean volume Auto (B ld) [Entitic vol]Ordered By: Surinder Del Castillo on 12-24-2022 Platelet mean volume (Bld) [Entitic vol] 7.5 fL 6.3-10.7 [facility] Platelets Auto (Bld) [#/Vol] Ordered By: Surinder Del Castillo on 12-24-2022 Platelets (Bld) [#/Vol] 404 10*3/uL 150-450 [facility] Potassium [Moles/volume] in Serum or PlasmaOrdered By: Surinder Del Castillo on 12-24-2022 Potassium [Moles/Vol] 3.7 mmol/L 3.5-5.1 [facility] Protein [Mass/volume] in Ser um or PlasmaOrdered By: Surinder Del Castillo on 12-24-2022 Protein [Mass/Vol] 6.8 g/dL 6.4-8.[address] [facility] RBC Auto (Bld) [#/Vol]Ordere d By: Surinder Del Castillo on 12-24-2022 RBC (Bld) [#/Vol] 4.28 10*6/uL 3.60-5.00 [facility] Serum or plasma albumin/glob ulin mass ratioOrdered By: Surinder Del Castillo on 12-24-2022 Albumin/Globulin [Mass ratio] 1.7 {ratio} [facility] Serum or plasma anion gap de terminationOrdered By: Surinder Del Castillo on 12-24-2022 Anion gap [Moles/Vol] 10.4 mmol/L 6.0-15.0 [facility] Serum or plasma high density lipoprotein (HDL) cholesterol measurementOrdered By: Surinder Del Castillo on 12-24-2022 Cholesterol in HDL [Mass/Vol] 48 mg/dL 23-92 [facility] Comment on above: HDL CHOL ATP-III CLA SSIFICATION Cardiovascular RiskHDL > or equal to 60 mg/dL LOWHDL < 40 mg/dL HIGH Serum or plasma total choles terol/high density lipoprotein (HDL) cholesterol mass ratOrdered By: Surinder Del Castillo on 12-24-2022 Cholesterol.total/Ashely sterol in HDL [Mass ratio] 3.3 {ratio} <5.0 [facility] Sodium [Moles/volume] in Ser um or PlasmaOrdered By: Surinder Del Castillo on 12-24-2022 Sodium [Moles/Vol] 141 mmol/L 136-[address] [facility] Thyrotropin [Units/volume] i n Serum or PlasmaOrdered By: Surinder Del Castillo on 12-24-2022 TSH Qn 3.29 m[IU]/L 0.45-5.33 [facility] Triglyceride [Mass/volume] i n Serum or PlasmaOrdered By: Surinder Del Castillo on 12-24-2022 Triglyceride [Mass/Vol] 302 mg/dL 0-149 [facility] Comment on above: TRIG ATP III CLASSIF ICATIONTRIG less than 150 mg/dL NormalTRIG 150-199 mg/dL Borderline highTRIG 200-500 mg/dL High TRIG greater than 500 mg/dL Very highStandard traceable to the Center for Disease Conrtrol and Prevention (CDC) test method. Urea nitrogen [Mass/volume] in Serum or PlasmaOrdered By: Surinder Del Castillo on 12-24-2022 Urea nitrogen [Mass/Vol] 13 mg/dL 7-25 [facility] WBC Auto (Bld) [#/Vol]Ordere d By: Surinder Del Castillo on 12-24-2022 WBC (Bld) [#/Vol] 7.2 10*3/uL 3.8-11.[address] [facility] Urinalysis - AUTOMATEDon Appearance (U) cloudy [employer] Other Bilirubin Ql (U) small [employer] Other Color (U) orange-brown [facility] Other Glucose Ql (U) Negative [employer] Other Hemoglobin Ql (U) large [employer] Other Ketones Ql (U) Negative [employer] Other Leukocyte esterase Test strip Ql (U) Negative [employer] Other Nitrite Ql (U) Positive [employer] Other pH (U) 5.0 [pH] [employer] Other Protein Ql (U) 100 [employer] Other Specific gravity (U) [Rel density] 1.030 [facility] Other Urobilinogen (U) [Mass/Vol] 1.0 mg/dL [facility] Other Urinalysis - AUTOMATED No rt [employer] Other Urine Cultureon 06-15-2022 Bacteria identified Cx Nom (U) Reason for Exam Dysuria Urine <9,000 colonies/ml mixed bacterial skin contaminants 2 Days PERFORMED BY: [place] [address] PATHOLOGIST TUMBLER OPERATOR LUCERO AREVALO M.D. [facility] Comment on above: Performed By: #### C UU #### [address] Bacteria identified Cx Nom (U) [facility] Other MM screening mammo BI w/CADo n 06-06-2022 MM screening mammo BI w/CAD [facility] [place] [address] [place] [address] Mammography Report Signed Patient: Kathy Freeman MR#: [id number] 1 : 1980 Acct:[id number] Age/Sex: 41 / F ADM Date: 06/04/22 Loc: [place] Room: Type: [facility] Attending Dr: Referral Self Copies to: Elin Patel MD SELF,REFERRAL Ordering Provider: SELF,REFERRAL Date of Service: 06/04/22 MM/MM screening mammo BI w/CAD: SCREENING CLINICAL DATA: Screening for malignancy. BILATERAL SCREENING MAMMOGRAMS - FULL FIELD DIGITAL WITH TOMOSYNTHESIS AND CAD Tomosynthesis craniocaudal and mediolateral oblique views of both breasts were obtained using low- dose digital technique. Comparison is made to prior studies from June 21, 2015 through March 02, 2021. This examination was reviewed with the aid of CAD. There are scattered fibroglandular densities. A few benign calcifications are visualized. There are no developing masses, typically malignant calcifications or architectural distortion. There has been no significant interval change. MM/MM screening mammo BI w/CAD IMPRESSION: NO MAMMOGRAPHIC EVIDENCE OF MALIGNANCY. ROUTINE FOLLOW-UP IS RECOMMENDED IN ONE YEAR. RESULT CODE: 2 Benign Findings(s) DENSITY CODE: 2 (approximately 25-50% glandular) FOLLOW UP: 1YR The false-negative rate of mammography is approximately 10-percent. Management of a palpable abnormality must be based on clinical grounds. Patient was entered into a reminder system with a target due date for the next mammogram. Impression dictated by: Billie Thomas M.D.06/06/2022 3:27 PM Dictation Location: [facility] Transcribed By: TELLO 06/06/22 1527 Dictated By: Billie Thomas MD 06/06/22 1515 Signed By: 06/06/22 1527 [facility] SARS-CoV-2 (COVID-19) RNA NA A+probe Ql (Resp)on 05-28-2022 SARS-CoV-2 (COVID-19) RNA CHARLENE+probe Ql (Unsp spec) Negative [facility] Other [facility] 05-07-2022 L - -------- Specimen: [id number] Received: 05/08/22 Status: TATYANA [place] Num: [id number] Spec Type: Surgical Subm Dr: Malcolm Iglesias MD Tissues: A Esophagus Biopsy (ESOPHAGEAL BX) Procedures: PAS - LGRN, HE/2, Gross/Micro L4 -------- Age/ Patient Sex Location Account Attending Physician -------- Kathy Freeman 41/F [id number] Malcolm Iglesias MD -------- SPEC NUM: [id number] RECD: 05/08/22 STATUS: TATYANA FERRARO NUM: [id number] PETER: 05/07/22-[address] [facility] [address]: Malcolm Iglesias MD ENTERED: 05/08/[address] [facility] [address]: XOCHITL TYPE: Surgical DEPT: S ORDERED: PAS - LGRN, HE/2, Gross/Micro L4 ORDERED: PAS - LGRN, HE/2, Gross/Micro L4 Pathological Diagnosis Esophagus, biopsy: - Esophageal squamous epithelium with reactive change. - No eosinophilic infiltrate. - No glandular mucosa present. - PAS-F stain negative for fungal elements. Clinical Information Difficulty swallowing, rule out EOE Gross Description Received in formalin labeled with the patient's name, number and esophageal biopsy rule out EOE are two fragments of soft salvador tissue averaging 0.2 cm. Entirely submitted in one cassette labeled A1. Microscopic Description Two glass slides with H E stained material and one special stained slide have been examined. The microscopic findings support the above pathologic diagnosis. -------- Specimen: [id number] Received: 05/08/22 Status: TATYANA Ferraro Num: [id number] Spec Type: Surgical Subm Dr: Malcolm Iglesias MD Tissues: A Esophagus Biopsy (ESOPHAGEAL BX) Procedures: CLARISSE ARTHUR HE/Eliz, Gross/Micro L4 -------- Patient: Kathy Freeman [id number] (Continued) -------- Specimen: [id number] Received: 05/08/22 (Continued) Signed (signature on file) Homero Crow MD 05/09/22 1615 -------- Specimen: [id number] Received: 05/08/22 Status: TATYANA Ferraro Num: [id number] Spec Type: Surgical Subm Dr: Malcolm Iglesias MD Tissues: A Esophagus Biopsy (ESOPHAGEAL BX) Procedures: SANGITA MYERS/Eliz, Evelin/Mauricio L4 -------- Patient: Kathy Freeman [id number] (Continued) -------- Specimen: [id number] Received: 05/08/22 (Continued) CPT Codes 36312, 38216 -------- -------- Specimen: [id number] Received: 05/08/22 Status: TATYANA Ferraro Num: [id number] Spec Type: Surgical Subm Dr: Malcolm Iglesias MD Tissues: A Esophagus Biopsy (ESOPHAGEAL BX) Procedures: CLARISSE ARTHUR, SANGITA/2, Gross/Micro L4 -------- Patient: Kathy Freeman [id number] (Continued) -------- Signed (signature on file) Homero Crow MD 05/09/22 1615 [facility] SARS-CoV-2 (COVID-19) RNA NA A+probe Ql (Resp)on 05-03-2022 SARS-CoV-2 (COVID-19) RNA CHARLENE+probe Ql (Unsp spec) Negative [facility] Other PAP ACOG PANEL 2: 30 to 65on 02-05-2022 . . Normal [facility] Comment on above: Result Comment: Perf ormed at: WB Performed By: #### [id number] #### [facility] [address] [place] [address] Dr. Josue Panda Age Gdln ACOG Testing 30-65 [facility] Comment on above: Performed By: #### [id number] #### [facility] [address] [address] [address] Josue Panda DIAGNOSIS: Comment Normal [facility] Comment on above: Result Comment: NEGA TIVE FOR INTRAEPITHELIAL LESION OR MALIGNANCY. Performed at: WB Performed By: #### [id number] #### [facility] [address] [place] [address] Dr. Josue Panda HPV Aptima Negative Normal Negative [facility] Comment on above: Result Comment: This nucleic acid amplification test detects fourteen high-risk HPV types (16,18,31,33,35,39,45,51,52,56,58,59,66,68) without differentiation. Performed at: =G Performed By: #### [id number] #### [facility] [address] [place] [address] Dr. Josue Panda Methodology: Comment Normal [facility] Comment on above: Result Comment: This liquid based ThinPrep(R) pap test was screened with the use of an image guided system. Performed at: WB Performed By: #### [id number] #### [facility] [address] [place] [address] Dr. Josue Panda Note: Comment Normal [facility] Comment on above: Result Comment: The Pap smear is a screening test designed to aid in the detection of premalignant and malignant conditions of the uterine cervix. It is not a diagnostic procedure and should not be used as the sole means of detecting cervical cancer. Both false-positive and false-negative reports do occur. . Performed at: WB Performed By: #### [id number] #### [facility] [address] [place] [address] Dr. Josue Panda Performed by: Comment Normal [facility] Comment on above: Result Comment: Philip Valentino, Chief Controller Center (ASCP) Performed at: WB Performed By: #### [id number] #### [facility] [address] [place] [address] Dr. Josue Panda Specimen adequacy: Comment Normal [facility] Comment on above: Result Comment: Sati sfactory for evaluation. No endocervical cells are present. This is consistent with a history of hysterectomy. Performed at: WB Performed By: #### [id number] #### [facility] [address] [place] [address] Dr. Josue Panda Basophils Auto (Bld) [#/Vol] Ordered By: Surinder Del Castillo on 01-14-2022 Basophils (Bld) [#/Vol] 0.1 10*3/uL 0.0-0.2 [facility] Basophils/100 WBC Auto (Bld) Ordered By: Surinder Del Castillo on 01-14-2022 Basophils/100 WBC (Bld) 1.2 % . [facility] Blood hemoglobin measurement (mass/volume)Ordered By: Surinder Del Castillo on 01-14-2022 Hemoglobin (Bld) [Mass/Vol] 14.0 g/dL 11.8-15.4 [facility] Blood leukocytes automated c ount (number/volume)Ordered By: Surinder Del Castillo on 01-14-2022 WBC (Bld) [#/Vol] 5.6 10*3/uL 4.5-11.[address] [facility] Body fluid albumin measureme nt (mass/volume)Ordered By: Surinder Del Castillo on 01-14-2022 Albumin (Body fld) [Mass/Vol] 4.1 g/dL 3.2-5.5 [facility] Cholesterol [Mass/volume] in Serum or PlasmaOrdered By: Surinder Del Castillo on 01-14-2022 Cholesterol [Mass/Vol] 149 mg/dL 140-200 [facility] Comment on above: Chol less than 200 m g/dl low risk Chol 201-239 mg/dl borderline risk Chol 240 mg/dl and greater high risk Cholesterol in LDL Calc [Mas s/Vol]Ordered By: Surinder Del Castillo on 01-14-2022 Cholesterol in LDL [Mass/Vol] 75 mg/dL 0-100 [facility] Comment on above: LDL ATP III CLASSIFI CATION LDL less than 100 mg/dL Optimal LDL 100-129 mg/dL Near or above optimal LDL 130-159 mg/dL Borderline high LDL 160-189 mg/dL High LDL greater than 189 mg/dL Very high Cholesterol in VLDL Calc [Ma ss/Vol]Ordered By: Surinder Del Castillo on 01-14-2022 Cholesterol in VLDL [Mass/Vol] 33 mg/dL [facility] Creatinine and Glomerular fi ltration rate.predicted panel (S/P/Bld)Ordered By: Surinder Del Castillo on 01-14-2022 Creatinine [Mass/Vol] 0.84 mg/dL 0.44-1.03 [facility] Eosinophils Auto (Bld) [#/Vo l]Ordered By: Surinder Del Castillo on 01-14-2022 Eosinophils (Bld) [#/Vol] 0.1 10*3/uL 0.0-0.45 [facility] Eosinophils/100 WBC Auto (Bl d)Ordered By: Surinder Del Castillo on 01-14-2022 Eosinophils/100 WBC (Bld) 2.6 % . [facility] Erythrocyte distribution wid th Auto (RBC) [Ratio]Ordered By: Surinder Del Castillo on 01-14-2022 Erythrocyte distribution width (RBC) [Ratio] 12.7 % 11.9-15.3 [facility] Estimated glomerular filtrat ion rate (GFR) non- AmericanOrdered By: Surinder Del Castillo on 01-14-2022 GFR/1.73 sq M.predicted among non-blacks MDRD (S/P/Bld) [Vol rate/Area] > 60 mL/Min [facility] Globulin Calc (S) [Mass/Vol] Ordered By: Surinder Del Castillo on 01-14-2022 Globulin (S) [Mass/Vol] 2.8 g/dL [facility] Hematocrit Auto (Bld) [Volum e fraction]Ordered By: Surinder Del Castillo on 01-14-2022 Hematocrit (Bld) [Volume fraction] 41.5 % 34.0-46.4 [facility] - Chemistry and C hemistry - challengeOrdered By: Surinder Del Castillo on 01-14-2022 Glucose [Mass/Vol] 88 mg/dL 70-[address] [facility] - Hematology and Cell countsOrdered By: Surinder Del Castillo on 01-14-2022 Nucleated RBC/100 WBC (Bld) [Ratio] 0.2 % 0-0.5 [facility] Lymphocytes Auto (Bld) [#/Vo l]Ordered By: Surinder Del Castillo on 01-14-2022 Lymphocytes (Bld) [#/Vol] 1.9 10*3/uL 1.00-4.8 [facility] Lymphocytes/100 WBC Auto (Bl d)Ordered By: Surinder Del Castillo on 01-14-2022 Lymphocytes/100 WBC (Bld) 33.5 % . [facility] MCH Auto (RBC) [Entitic mass ]Ordered By: Surinder Del Castillo on 01-14-2022 MCH (RBC) [Entitic mass] 30.4 pg 24.7-34.3 [facility] MCHC Auto (RBC) [Mass/Vol]Or dered By: Surinder Del Castillo on 01-14-2022 MCHC (RBC) [Mass/Vol] 33.6 g/dL 32.0-35.0 [facility] MCV Auto (RBC) [Entitic vol] Ordered By: Surinder Del Castillo on 01-14-2022 MCV (RBC) [Entitic vol] 90.5 fL 80-100 [facility] Monocyte %Ordered By: Surinder Del Castillo on 01-14-2022 Monocyte % 169 mg/dL 35-149 [facility] Comment on above: TRIG ATP III CLASSIF ICATION TRIG less than 150 mg/dL Normal TRIG 150-199 mg/dL Borderline high TRIG 200-500 mg/dL High TRIG greater than 500 mg/dL Very high Standard traceable to the Center for Disease Conrtrol and Prevention (CDC) test method. Monocytes Auto (Bld) [#/Vol] Ordered By: Surinder Del Castillo on 01-14-2022 Monocytes (Bld) [#/Vol] 0.6 10*3/uL 0.0-0.8 [facility] Monocytes/100 WBC Auto (Bld) Ordered By: Surinder Del Castillo on 01-14-2022 Monocytes/100 WBC (Bld) 11.4 % . [facility] Neutrophils Auto (Bld) [#/Vo l]Ordered By: Surinder Del Castillo on 01-14-2022 Neutrophils (Bld) [#/Vol] 2.9 10*3/uL 1.8-7.7 [facility] Neutrophils/100 WBC Auto (Bl d)Ordered By: Surinder Del Castillo on 01-14-2022 Neutrophils/100 WBC (Bld) 51.3 % . [facility] No Panel InformationOrdered By: Surinder Del Castillo on 01-14-2022 Estimated GFR () > 60 mL/Min [facility] Comment on above: GFR estimated refere nce range: According to KDOQI guidelines, <60 ml/min/1.73m2 is sufficient to diagnose a patient with chronic kidney disease. Nicotine Metabolite Negative Cutoff=25 [facility] Comment on above: Performed at: [address] [id number] Heating Technician: Jesi Lombardo MD, Phone: [phone] Pharmacy Creatinine Clearance (Chem N/A [facility] Platelet mean volume Auto (B ld) [Entitic vol]Ordered By: Surinder Del Castillo on 01-14-2022 Platelet mean volume (Bld) [Entitic vol] 7.4 fL 6.3-10.7 [facility] Platelets Auto (Bld) [#/Vol] Ordered By: Surinder Del Castillo on 01-14-2022 Platelets (Bld) [#/Vol] 442 10*3/uL 150-450 [facility] Protein [Mass/volume] in Ser um or PlasmaOrdered By: Surinder Del Castillo on 01-14-2022 Protein [Mass/Vol] 6.9 g/dL 6.1-7.[address] [facility] RBC Auto (Bld) [#/Vol]Ordere d By: Surinder Del Castillo on 01-14-2022 RBC (Bld) [#/Vol] 4.59 10*6/uL 3.60-5.00 [facility] Serum or plasma alanine mott otransferase measurement without P-5'-P (enzymatic activiOrdered By: Surinder Del Castillo on 01-14-2022 ALT No additional P-5'-P [Catalytic activity/Vol] 60 U/L 10-60 [facility] Serum or plasma albumin/glob ulin mass ratioOrdered By: Surinder Del Castillo on 01-14-2022 Albumin/Globulin [Mass ratio] 1.5 {ratio} [facility] Serum or plasma alkaline riri sphatase measurement (enzymatic activity/volume)Ordered By: Surinder Del Castillo on 01-14-2022 ALP [Catalytic activity/Vol] 64 U/L 32-92 [facility] Serum or plasma aspartate am inotransferase measurement (enzymatic activity/volume)Ordered By: Surinder Del Castillo on 01-14-2022 AST [Catalytic activity/Vol] 51 U/L 10-42 [facility] Serum or plasma calcium zaria urement (mass/volume)Ordered By: Surinder Del Castillo on 01-14-2022 Calcium [Mass/Vol] 10.7 mg/dL 8.2-10.[address] [facility] Serum or plasma chloride anil surement (moles/volume)Ordered By: Surinder Del Castillo on 01-14-2022 Chloride [Moles/Vol] 98 mmol/L 95-114 [facility] Serum or plasma high density lipoprotein (HDL) cholesterol measurementOrdered By: Surinder Del Castillo on 01-14-2022 Cholesterol in HDL [Mass/Vol] 40 mg/dL 35-85 [facility] Comment on above: HDL CHOL ATP-III CLA SSIFICATION Cardiovascular Risk HDL > or equal to 60 mg/dL LOW HDL < 40 mg/dL HIGH Serum or plasma potassium me asurement (moles/volume)Ordered By: Surinder Del Castillo on 01-14-2022 Potassium [Moles/Vol] 3.7 mmol/L 3.5-5.1 [facility] Serum or plasma sodium measu rement (moles/volume)Ordered By: Surinder Del Castillo on 01-14-2022 Sodium [Moles/Vol] 136 mmol/L 136-[address] [facility] Serum or plasma total biliru bin measurement (mass/volume)Ordered By: Surinder Del Castillo on 01-14-2022 Bilirubin [Mass/Vol] 0.7 mg/dL 0.3-1.2 [facility] Serum or plasma total carbon dioxide measurement (moles/volume)Ordered By: Surinder Del Castillo on 01-14-2022 CO2 [Moles/Vol] 27.9 mmol/L 22.0-30.0 [facility] Serum or plasma total choles terol/high density lipoprotein (HDL) cholesterol mass ratOrdered By: Surinder Del Castillo on 01-14-2022 Cholesterol.total/Ashely sterol in HDL [Mass ratio] 3.7 {ratio} <5.0 [facility] Serum or plasma urea nitroge n measurement (mass/volume)Ordered By: Surinderkavitha Del Castillo on 01-14-2022 Urea nitrogen [Mass/Vol] 7 mg/dL 02-15 [facility] TSH DL <= 0.005 mIU/L QnOrde red By: Surinder Del Castillo on 01-14-2022 TSH Qn 2.11 m[IU]/L 0.45-5.33 [facility] COVID Quick Testingon 2021 Result Negative [facility] Other SARS-CoV-2 (COVID-19) RNA NA A+probe Ql (Resp)on 12-30-2021 SARS-CoV-2 (COVID-19) RNA CHARLENE+probe Ql (Unsp spec) Positive [facility] Other COVID Quick Testingon 2021 Result Negative [facility] Other Urine Cultureon 03-06-2021 Urine Culture >100,000 [facility] Other Urine Culture <16 [facility] Other Urine Culture <8 [facility] Other Urine Culture <4 [facility] Other Urine Culture <2 [facility] Other Urine Culture <1 [facility] Other Urine Culture <0.5 [facility] Other Urine Culture <32 [facility] Other Urine Culture <2/38 [facility] Other Vital Signs Date Time Vital Sign Value Performing Clinician Facility 06-20-2023 19:27-0500 Body height 166.[address] [facility] 06-20-2023 19:27-0500 Body mass index (BMI) [Ratio] 36.71 kg/m2 [facility] 06-20-2023 19:27-0500 Body weight 101.61 kg [facility] 06-15-2022 10:15-0500 Body height 170.18 cm Elisa Antony Other [facility] Other 06-15-2022 10:15-0500 Body mass index (BMI) [Ratio] 35.08 kg/m2 Elisa Antony Other [facility] Other 06-15-2022 10:15-0500 Body temperature 98 [degF] Elisa Antony Other [facility] Other 06-15-2022 10:15-0500 Body weight 101.61 kg Elisa Antony Other [facility] Other 06-15-2022 10:15-0500 Diastolic blood pressure 90 mm[Hg] Elisa Antony Other [facility] Other 06-15-2022 10:15-0500 Respiratory rate 18 /min Elisa Antony Other [facility] Other 06-15-2022 10:15-0500 SaO2% (BldA) [Mass fraction] 98 % Elisa Antony Other [facility] Other 06-15-2022 10:15-0500 Systolic blood pressure 140 mm[Hg] Elisa Cassia Other [facility] Other 05-30-2022 06:42-0500 Body height 166.37 cm MD Elin Patel Work Phone: [facility] 05-30-2022 06:42-0500 Body weight 104.32 kg MD Elin Patel Work Phone: [facility] 05-07-2022 15:30-0500 Diastolic blood pressure 86 mm[Hg] MD Elin Patel Work Phone: [facility] 05-07-2022 15:30-0500 Heart rate 63 /min MD Elin Patel Work Phone: [facility] 05-07-2022 15:30-0500 Respiratory rate 16 /min MD Elin Patel Work Phone: [facility] 05-07-2022 15:30-0500 SaO2% (BldA) [Mass fraction] 99 % MD Elin Patel Work Phone: [facility] 05-07-2022 15:30-0500 Systolic blood pressure 130 mm[Hg] MD Elin Patel Work Phone: [facility] 05-07-2022 13:19-0500 Body height 166.37 cm MD Elin Patel Work Phone: [facility] 05-07-2022 13:19-0500 Body temperature 98.6 [degF] MD Elin Patel Work Phone: [facility] 05-07-2022 13:19-0500 Body weight 104.32 kg MD Elin Patel Work Phone: [facility] 04-17-2021 10:45-0500 Body height 170.18 cm Elisa Antony Other [facility] Other 04-17-2021 10:45-0500 Body mass index (BMI) [Ratio] 33.67 kg/m2 Elisa Antony Other [facility] Other 04-17-2021 10:45-0500 Body weight 97.52 kg Elisa Antony Other [facility] Other 04-17-2021 10:45-0500 SaO2% (BldA) [Mass fraction] 97 % Elisa Cassia Other [facility] Other 03-06-2021 17:50-0400 Body height 170.18 cm Elisa Cassia Other [facility] Other 03-06-2021 17:50-0400 Body mass index (BMI) [Ratio] 33.67 kg/m2 Elisa Cassia Other [facility] Other 03-06-2021 17:50-0400 Body temperature 97.9 [degF] Elisa Cassia Other [facility] Other 03-06-2021 17:50-0400 Body weight 97.52 kg Elisa Cassia Other [facility] Other 03-06-2021 17:50-0400 Diastolic blood pressure 82 mm[Hg] Elisa Cassia Other [facility] Other 03-06-2021 17:50-0400 Respiratory rate 18 /min Elisa Cassia Other [facility] Other 03-06-2021 17:50-0400 SaO2% (BldA) [Mass fraction] 100 % Elisa Cassia Other [facility] Other 03-06-2021 17:50-0400 Systolic blood pressure 154 mm[Hg] Elisa Cassia Other [facility] Other 02-14-2021 10:45-0400 Body height 170.18 cm Elias Cassia Other [facility] Other 02-14-2021 10:45-0400 Body mass index (BMI) [Ratio] 33.67 kg/m2 Elisa Antony Other [facility] Other 02-14-2021 10:45-0400 Body temperature 97.5 [degF] Elisa Antony Other [facility] Other 02-14-2021 10:45-0400 Body weight 97.52 kg Elisa Antony Other [facility] Other 02-14-2021 10:45-0400 Respiratory rate 18 /min Elisa Antony Other [facility] Other 02-14-2021 10:45-0400 SaO2% (BldA) [Mass fraction] 97 % Elisa Antony Other [facility] Other Encounters Encounter Date Encounter Type Care Provider Facility Start: 07-16-2023 Telephone encounter Rachel burkett CNA Work Phone: [facility] Start: 07-04-2023 End: 07-05-2023 ambulatory SUKHDEEP ALYSSA Not Available Start: 06-26-2023 End: 06-26-2023 ambulatory SUKHDEEP ALYSSA Not Available Start: 06-26-2023 End: 06-26-2023 Office outpatient visit 15 minutes Sukhdeep Alyssa DO Work Phone: [facility] Comment on above: Cyst of ovary, unspe cified laterality; Pelvic pain in female Start: 06-20-2023 End: 06-24-[address] [facility] Comment on above: Sleep apnea, unspeci fied type Start: 06-13-2023 End: 06-14-2023 [facility] Start: 06-13-2023 End: 06-13-2023 Subsequent hospital visit by physician Elin Patel MD Work Phone: [facility] Laboratory Comment on above: Chronic GERD Start: 06-05-2023 Telephone encounter Elin vickers MD Work Phone: [facility] - Sleep Disorders Comment on above: Sleep Lab ([facility]) Start: 06-04-2023 End: 06-04-2023 ambulatory ELIN PATEL Not Available Start: 03-28-2023 End: 03-28-2023 ambulatory Malcolm Iglesias Other [facility] Other Start: 03-28-2023 Telephone encounter Malcolm [facility] Start: 01-06-2023 End: 01-06-2023 ambulatory Elin Patel Facility:[facility] Start: 01-06-2023 End: 01-06-2023 ambulatory MD Elin Patel Work Phone: [facility] Work Phone: Start: 01-06-2023 End: 01-06-2023 Discharged Recurring MD Elin Patel Work Phone: [facility]-Physical Therapy [place] Work Phone: Start: 12-24-2022 End: 12-24-2022 ambulatory Surinder Del Castillo Facility:[facility] Start: 12-24-2022 End: 12-24-2022 ambulatory MD Elin aPtel Work Phone: [facility] Work Phone: Start: 12-24-2022 End: 12-24-2022 Departed Referred MD Elin Patel Work Phone: [facility]-Employee Benefit Screening Start: 06-21-2022 End: 06-21-2022 ambulatory Malcolm Iglesias Other [employer] Other Start: 06-21-2022 Telephone encounter Malcolm Iglesias [facility] G[facility] Start: 06-15-2022 Office outpatient visit 25 minutes Elisa Antony [facility] Start: 06-15-2022 End: 06-15-2022 ambulatory PHYSICIAN WENDY PERES [facility] [employer] Other Start: 06-04-2022 End: 06-04-2022 ambulatory Referral Self Facility:[facility] Start: 06-04-2022 End: 06-04-2022 ambulatory MD Elin Patel Work Phone: [facility] Work Phone: Start: 06-04-2022 End: 06-04-2022 Patient encounter procedure MD Elin Patel Work Phone: [facility] Work Phone: Start: 05-30-2022 End: 05-30-2022 ambulatory Elin Patel Facility:[facility] Start: 05-30-2022 End: 05-30-2022 ambulatory MD Elin Patel Work Phone: [facility] Work Phone: Start: 05-30-2022 End: 05-30-2022 Patient encounter procedure MD Elin Patel Work Phone: [facility]Digestive [facility] Work Phone: Start: 05-28-2022 End: 05-28-2022 ambulatory Ele Friend Other [employer] Other Start: 05-28-2022 Office outpatient visit 5 minutes Ele Friend [facility] Start: 05-15-2022 End: 05-15-2022 ambulatory Malcolm Iglesias Other [employer] Other Start: 05-15-2022 Telephone encounter Malcolm Herrera Gastroenterology Start: 05-07-2022 End: 05-07-2022 ambulatory Elin Patel Facility:[facility] Start: 05-07-2022 End: 05-07-2022 Admission to same day surgery center MD Elin Patel Work Phone: [facility]Digestive [facility] Start: 05-07-2022 End: 05-07-2022 ambulatory MD Elin Patel Work Phone: [facility] Work Phone: Start: 05-03-2022 End: 05-03-2022 ambulatory Elisa Cassia Other [employer] Other Start: 05-03-2022 Nursing evaluation o f patient and report Elisa Antony [facility] Start: 04-23-2022 End: 04-23-2022 ambulatory Malcolm Iglesias Other [employer] Other Start: 04-23-2022 Telephone encounter Malcolm Herrera Gastroenterology Start: 03-19-2022 End: 03-19-2022 ambulatory Elin Patel Facility:[facility] Start: 03-19-2022 End: 03-19-2022 Patient encounter procedure MD Elin Patel Work Phone: [facility]-XRay [facility] [place] Start: 01-30-2022 End: 01-30-[address] SUKHDEEP SHAH [employer] Other Start: 01-30-2022 Telephone encounter Malcolm Herrera Gastroenterology Start: 01-14-2022 End: 01-14-2022 Departed Referred MD Elin Patel Work Phone: [facility]-Employee Benefit Screening Start: 01-07-2022 End: 01-07-2022 ambulatory Ele Friend Other [employer] Other Start: 01-07-2022 Office outpatient visit 5 minutes Ele Friend [facility] Start: 01-04-2022 End: 01-04-2022 Departed Referred MD Elin Patel Work Phone: [facility]-Employee Benefit Screening Start: 12-30-2021 End: 12-30-2021 ambulatory Elias Cassia Other [employer] Other Start: 12-30-2021 Nursing evaluation o f patient and report Elisa Cassia [facility] Start: 07-12-2021 End: 07-12-2021 ambulatory Mariya Finn Other [employer] Other Start: 07-12-2021 Office outpatient visit 5 minutes Mairya Finn [facility] Start: 04-17-2021 End: 04-17-2021 ambulatory Elisa Cassia Other [employer] Other Start: 04-17-2021 Office outpatient visit 15 minutes Elisa Cassia [facility] Start: 03-06-2021 Office outpatient visit 15 minutes Elisa Cassia [facility] Start: 02-14-2021 (URG) Urgent Care Visit Elisa Cassia [facility] Procedures Date Procedure Procedure Detail Performing Clinician Start: 06-13-2023 Comprehensive metabolic panel Sahil gonzalez [employer]LL[employer] SUPERINTENDENT Work Phone: Start: 06-04-2022 Mammography Sukhdeep Alyssa DO Work Phone: Start: 05-30-2022 Esophageal manometry MD Elin Patel Work Phone: Start: 05-07-2022 Esophagogastroduodenoscopy MD Elin ernandez Work Phone: Start: 03-06-2021 Piperacillin/tazobactam Elisa Cassia Other Start: 01-05-2020 Microscopic observation [Identifier] in Cervix by Cyto stain Sukhdeep Shah DO Work Phone: Plan of Treatment Date Care Activity Detail Author Start: 01-04-2025 Screening for malignant neoplasm of cervix [facility] Start: 06-20-2024 Adult BMI Screening Adult BMI Screening [facility] Start: 08-21-2023 End: 08-21-2023 Patient encounter procedure 08/21/2023 10:00 AM EDT Office Visit [facility] [address] [place] [address] Sukhdeep Shah DO [address] [place] [address] [facility] Start: 08-13-2023 End: 08-13-2023 Patient encounter procedure 08/13/2023 1:30 PM EDT Office Visit [facility] [address] [place] [id number] Donna Steen, WASH DRILLER-[employer] SUPERINTENDENT [address] [facility] [address] [place] [address] [facility] Start: 07-04-2023 End: 07-04-2023 Professional / ancillary services management 07/04/2023 11:15 AM EST Ancillary Procedure [facility] [address] [facility] [address] [place] [id number] [facility] Start: 07-02-2023 End: 07-02-2023 Patient encounter procedure 07/02/2023 2:15 PM EST Office Visit [facility] Gastroenterology [address] [place] [address] Sahil Santoyo, WASH DRILLER [employer] SUPERINTENDENT [address] [facility] [address] [place] [address] 3 wks/ pancreatic insufficiency [facility] Gastroenterology Comment on above: 3 wks/ pancreatic insufficiency Start: 06-20-2023 End: 06-20-2023 Clinical Support 06/20/2023 7:30 PM EST Clinical Support [facility] [address] [place] [address] [facility] Start: 06-04-2023 Screening for malignant neoplasm of breast Mammogram [facility] Start: 01-24-2023 COVID-19 Vaccine () COVID-19 Vaccine () [facility] Start: 01-24-2023 Influenza vaccination [facility] Start: 01-04-2023 Screening for malignant neoplasm of cervix Pap Smear [facility] Start: 12-24-2022 Influenza vaccination Flu vaccine (#1) [facility] Start: 06-04-2022 MG Breast - bilateral Screening [facility] Start: 06-04-2022 Screening mammography of bilateral breasts MM screening mammo BI w/CAD [facility] Start: 05-30-2022 [facility] Start: 05-07-2022 [facility] Start: 09-12-2019 DTaP,Tdap and Td Vaccines (2 - Td or Tdap) DTaP,Tdap and Td Vaccines (2 - Td or Tdap) [facility] Start: 09-12-2019 DTaP/Tdap/Td vaccine (2 - Td or Tdap) DTaP/Tdap/Td vaccine (2 - Td or Tdap) [facility] Start: 2008 Screening for malignant neoplasm of cervix [facility] Start: 11-04-1999 Screening for malignant neoplasm of cervix Pap Smear [facility] Start: 1996 Adult BMI Follow Up Plan Adult BMI Follow Up Plan [facility] Start: 1996 Adult BMI Screening Adult BMI Screening [facility] Start: 1996 Hepatitis C screening Hepatitis C screen [employer] [facility] Start: 1993 HIV screening HIV screen [facility] Start: 1990 Depression Monitoring Depression Monitoring [employer] [facility] Start: 1990 Depression Screening [facility] Start: 1990 Tobacco Screening Tobacco Screening [facility] Start: 1988 Lipid panel Lipids [facility] Start: 1978 Hepatitis B vaccine (1 of 3 - 3-dose series) Hepatitis B vaccine (1 of 3 - 3-dose series) [facility] US for US PELVIS-TRANS VAG IF INDICATED Imaging Routine Cyst of ovary, unspecified laterality Pelvic pain in female Ordered: 06/26/2023 [facility] Work Phone: Comment on above: Ordered: 06/26/2023 Immunizations Immunization Date Immunization Notes Care Provider [facility] 05-23-2021 influenza, injectabl e, quadrivalent, preservative free Sukhdeep Alyssa DO Work Phone: [facility] 05-23-2021 influenza virus vaccine, unspecified formulation Elin Patel MD Work Phone: [facility] 02-13-2021 influenza, injectabl e, quadrivalent, preservative free Sukhdeep Alyssa DO Work Phone: [facility] 09-20-2020 COVID-19 mRNA Comirnatsaroj (Pfizer) MD Elin Patel Work Phone: [facility] 08-23-2020 COVID-19 mRNA, Comirnatsaroj (Pfizer) MD Elin Patel Work Phone: [facility] 02-08-2020 influenza, injectabl e, quadrivalent, preservative free Sukhdeep Alyssa DO Work Phone: [facility] 09-11-2009 tetanus toxoid, redu pearl diphtheria toxoid, and acellular pertussis vaccine, adsorbed Sukhdeep Alyssa DO Work Phone: [facility] Healthcare Payers Date Payer Category Payer Unknown [id number] 2022 Self-pay [id number] 1980 Unknown [id number] 2.16.84 [id number] 1978 Unknown [id number] 2.16.8 [id number] 1978 Unknown [id number] 2.16.8 [id number] 1978 Unknown [id number] 2.16.84 [id number] 1978 Unknown [id number] 2.16.84 [id number] 1978 Unknown [id number] 2.16.84 [id number] 1959 Unknown [id number] 2. [id number] Unknown [id number] 2.16.8 [id number] Unknown [id number] 2.16.8 [id number] Unknown [id number] 2.16.8 [id number] Unknown [id number] 2.16.8 [id number] Unknown [id number] 2.16.8 [id number] Unknown [id number] 2.16.8 [id number] Unknown [id number] 2.16.8 [id number] Social History Date Type Detail Facility Start: 11-04-2018 End: 06-04-2023 Sex Assigned At [employer] Other Start: 1980 Sex Assigned At Female [facility] Start: 05-07-2022 End: 11-13-2022 Tobacco smoking status CTIS Never smoked tobacco (finding) [facility] Tobacco smoking stat us CTIS Tobacco smoking consumption unknown [facility] Start: 11-04-2018 End: 06-04-20[address] of [address] [facility] Housing Instability Unknown [facility] Start: 1980 Sex Assigned At Not on file [facility] Start: 11-13-2022 End: 06-13-2023 Tobacco use and exposure Smokeless tobacco non-user [facility] Start: 06-26-2023 Alcohol intake Lifetime non-drinker (finding) [facility] Start: 11-11-2022 Alcohol Comment Caffine intake: 1 cup a day [facility] Healthcare Goals Date Patient Goal Desired Activity /State Clinical Notes 02-14-2021 to 07-16-2023 Telephone Encounter - Rachel Kingsley CNA - 07/16/2023 12:37 PM ESTTelephone Encounter - Rachel Kingsley CNA - 07/16/2023 12:37 PM Melia Sutton LPN - 06/26/2023 11:00 AM EST Note Date & Type Note Facility 07-16-2023 Miscellaneous Notes Formattin g of this note might be different from the original. Left voicemail to change to video visit with SAURAV on 08/13. Sent letter documented in this encounter [facility] 07-16-2023 Telephone encount er Note Left voicemail to change to video visit with SAURAV on 08/13. Sent letter [facility] 06-26-2023 History of Presen t illness Narrative Reason for Appointment: Patient ID: Kathy Freeman is a 42 y.o. female who presents for Eval for ovarian cyst Patient presents today for Consult appointment. Current Medications: has a current medication list which includes the following prescription(s): estradiol-norethindrone, aspirin, cholecalciferol, fluoxetine, metoprolol succinate xl, creon, pantoprazole, and rosuvastatin. Medical History: Active Ambulatory Problems Diagnosis Date Noted Depression (CMS/HCC) 11/12/2022 Difficulty walking 11/12/2022 Dysphagia 11/12/2022 Hypercholesteremia ([facility]) 11/12/2022 Hypertension ([facility]) 11/12/2022 Obesity 11/12/2022 Seasonal allergic rhinitis 11/12/2022 Unrefreshed by sleep 11/12/2022 Pancreatic insufficiency ([facility]) 01/20/2023 Resolved Ambulatory Problems Diagnosis Date Noted Irritable bowel 11/12/2022 Muscle strain 11/12/2022 Obstructive sleep apnea syndrome 11/12/2022 Past Medical History: Diagnosis Date Breast cyst, left Fatigue, unspecified type Menopause Never smoked tobacco Obesity (BMI 30-39.9) Ovarian mass, right Seasonal allergies Family History Problem Relation Name Age of Onset Breast cancer Mother Cancer Mother Irritable bowel syndrome Maternal Grandmother Other (Bowel Rupture) Maternal Grandmother Cancer Maternal Grandfather Lung cancer Maternal Grandfather Cancer Paternal Grandmother Melanoma Paternal Grandmother Irritable bowel syndrome Paternal Grandfather Social History Tobacco Use Smoking status: Never Smokeless tobacco: Never Substance Use Topics Alcohol use: Never Comment: Caffine intake: 1 cup a day Drug use: Never Past Surgical History: Procedure Laterality Date CYSTOURETHROSCOPY 09/2011 DILATION AND CURETTAGE 06/2001 OTHER SURGICAL HISTORY 10/03/2015 Total hysterectomy with cystoscopy Allergies Allergen Reactions Wound Dressing Adhesive Other Reaction(s): rash, skin tears Tape Review of Systems: Review of Systems All other systems reviewed and are negative. Objective Physical Exam Constitutional: Appearance: Normal appearance. She is well-developed. Cardiovascular: Rate and Rhythm: Normal rate and regular rhythm. Pulmonary: Effort: Pulmonary effort is normal. Breath sounds: Normal breath sounds. Abdominal: General: Bowel sounds are normal. There is no distension. Palpations: Abdomen is soft. Tenderness: There is no abdominal tenderness. There is no guarding or rebound. Musculoskeletal: General: No swelling. Normal range of motion. Right lower leg: No edema. Left lower leg: No edema. Neurological: Mental Status: She is alert and oriented to person, place, and time. Skin: General: Skin is warm and dry. Psychiatric: Mood and Affect: Mood normal. Behavior: Behavior normal. Vitals and nursing note reviewed. Exam conducted with a pocketbook maker present. Vitals: Estimated body mass index is 32.14 kg/m as calculated from the following: Height as of 06/04/23: 5' 10 . Weight as of 06/04/23: 224 lb. BP: No LMP recorded. Patient is perimenopausal. Assessment/Plan Encounter Diagnosis Name Primary? Cyst of ovary, unspecified laterality Patient presents today to discuss ovarian cyst that patient voiced was very painful last week. Will order pelvic US for patient to have done. Patient to setup annual in 8 weeks and could then review US results at that time. PVU Documented by Beckie Sutton LPN on behalf of: Sukhdeep Shah DO documented in this encounter [facility] 06-05-2023 Miscellaneous Notes Formattin g of this note might be different from the original. 06/05 Received 06/04 order Called pt to schedule [facility] sched at [facility] on 06/20 Confirmation [facility]. Tee for approval [facility] order and 06/04 Amanda notes in MM Ok for HST. Ordered as referral. AUTH STARTED HST/NPR MMO primary documented in this encounter [facility] 06-05-2023 Telephone encount er Note 06/05 Received 06/04 order Called pt to schedule [facility] sched at [facility] on 06/20 Confirmation emailed [facility] Rout[facility] Dr. Tee for approval [facility] order and 06/04 [facility] 06-05-2023 Telephone encount er Note Ok for HST. Ordered as referral. [employer] Work Phone: 06-05-2023 Telephone encount er Note AUTH STARTED HST/NPR MMO primary [employer] 06-21-2022 Evaluation note Encounter Date Diagnosis Assessment Notes May, GERD (gastroesop hageal reflux disease) (ICD-10 - K21.9) [employer] Other 01-21-2023 Evaluation note* Encounter Date Diagnosis Assessment Notes Treatment Notes Treatment Clinical Notes May, Dysuria (ICD-10 - R30.0) May, Urinary tract infection, site not specified (ICD-10 - N39.0) Urinary tract infection (UTI) home care material was printed Drink plenty fluids, get plenty of rest. Take the Macrobid and Pyridium as prescribed until gone. Follow-up with your family physician if no improvement in 2 to 3 days. Take Tylenol or Motrin as needed for aches pains or fevers. May, Hematuria, unspecified (ICD-10 - R31.9) [employer] Other 01-03-2023 Evaluation note* Encounter Date Diagnosis Assessment Notes Treatment Notes Treatment Clinical Notes May, Contact with and (suspected) exposure to covid-19 (ICD-10 - Z20.822) [employer] Other 12-21-2022 Evaluation note* Encounter Date Diagnosis Assessment Notes Treatment Notes Treatment Clinical Notes Apr, Dysphagia (ICD-10 - R13.10) [employer] Other 12-13-2022 Procedure [facility]12-09-2022 Evaluation note* Encounter Date Diagnosis Assessment Notes Treatment Notes Treatment Clinical Notes Apr, Contact with and (suspected) exposure to other viral communicable diseases (ICD-10 - Z20.828) [employer] Other 11-29-2022 Evaluation note* Encounter Date Diagnosis Assessment Notes Treatment Notes Treatment Clinical Notes Mar, Difficulty in swallowing (ICD-10 - R13.10) [employer] Other 09-07-2022 Evaluation note* Encounter Date Diagnosis Assessment Notes Treatment Notes Treatment Clinical Notes Jan, GERD (gastroesophageal reflux disease) (ICD-10 - K21.9) [employer] Other 08-15-2022 Evaluation note* Encounter Date Diagnosis Assessment Notes Treatment Notes Treatment Clinical Notes Dec, Contact with and (suspected) exposure to other viral communicable diseases (ICD-10 - Z20.828) [employer] Other 08-07-2022 Evaluation note* Encounter Date Diagnosis Assessment Notes Treatment Notes Treatment Clinical Notes Dec, Exposure to COVID-19 virus (ICD-10 - Z20.822) [employer] Other 02-17-2022 Evaluation note* Encounter Date Diagnosis Assessment Notes Treatment Notes Treatment Clinical Notes Jun, Contact with and (suspected) exposure to other viral communicable diseases (ICD-10 - Z20.828) Jun, Other Additional time spent conducting pre-visit phone call, screening for symptoms, instructions on social distancing, application and removal of PPE, and cleaning of examination room, equipment and supplies was preformed. Patient education given for testing methodology and results. Patient care instructions given in writting by [facility] document. [employer] Other 11-23-2021 Evaluation note* Encounter Date Diagnosis Assessment Notes Treatment Notes Treatment Clinical Notes Mar, Contact with and (suspected) exposure to other viral communicable diseases (ICD-10 - Z20.828) Drink plenty fluids, get plenty of rest. Notify [facility] of your family members positive Covid result. Mar, Other Additional time spent conducting pre-visit phone call, screening for symptoms, instructions on social distancing, application and removal of PPE, and cleaning of examination room, equipment and supplies was preformed. Patient education given for testing methodology and results. Patient care instructions given in writting by [facility] Care At Home document. [employer] Other 10-12-2021 Evaluation note* Encounter Date Diagnosis Assessment Notes Treatment Notes Treatment Clinical Notes Feb, Dysuria (ICD-10 - R30.0) Feb, Acute cystitis with hematuria (ICD-10 - N30.01) Drink plenty fluids, get plenty of rest. Take the Macrobid as prescribed until gone. Take the Pyridium as prescribed until gone. Follow-up with your family physician if no improvement in 2 to 3 days [employer] Other 09-22-2021 Evaluation note* Encounter Date Diagnosis Assessment Notes Treatment Notes Treatment Clinical Notes Jan, Contact with and (suspected) exposure to other viral communicable diseases (ICD-10 - Z20.828) Jan, Viral upper respiratory illness (ICD-10 - J06.9) Viral upper respiratory infection: adult home care material was printed. Drink plenty fluids, get plenty of rest. Continue your allergy medications as usual. Tylenol or Motrin for aches pains or fevers. Follow-up with your family physician if no improvement in 2 to 3 days Jan, Other Additional time spent conducting pre-visit phone call, screening for symptoms, instructions on social distancing, application and removal of PPE, and cleaning of examination room, equipment and supplies was preformed. Patient education given for testing methodology and results. Patient care instructions given in writting by [facility] Care At Home document. Additional time spent conducting pre-visit phone call, screening for symptoms, instructions on social distancing, application and removal of PPE, and cleaning of examination room, equipment and supplies was preformed. Patient education given for testing methodology and results. Patient care instructions given in writting by [facility] Care At Home document. [employer] Other Evaluation noteNo assessment information available [facility] Work Phone: Evaluvnkeb noteNo [employer] Other Evaluation note* Diagnosis Chronic GERD documented in this encounter [facility]* Diagnosis Sleep apnea, unspecified type [facility] Diagnosis Cyst of ovary, unspecified laterality Pelvic pain in female Unspecified symptom associated with female genital organs documented in this encounter [facility] and physical note Author Malcolm Iglesias [facility] May 07, 2022 2:49pm Note Date/Time May 07, 2022 2:49pm [facility] [address] [place] [address] Gastroenterology H&P Signed Patient: Kathy Freeman MR#: [id number] : 1980 Acct:[id number] Age/Sex: 41 / F Adm Date: 2 Loc: Room: Type: [facility] Attending Dr: Malcolm Iglesias MD Copies to: MD Malcolm Callaway MD~ Date of Service: 05/07/2022 HISTORY & PHYSICAL: Patient's history with special attention to the cardiovascular, pulmonary systems and the current problem was reviewed with the patient immediately prior to the procedure. Present medications and doses reviewed in the EMR. Allergies and pertinent laboratory tests were also reviewedat this time in the EMR. The physical examination, as below, was then performed. Indication, assessment and HPI: 41-year-old female presents for EGD to evaluate dysphagia Family history of GI malignancy? No PHYSICAL EXAMINATION Mouth and Pharynx : Moist mucus membranes, normal dentition Cardiac: Regular rate, regular rhythm Pulmonary: Clear to auscultation bilaterally, no wheezing Neurological: Alert and oriented x3, no focal deficits noted Abdomen: Abdomen soft, non-tender REVIEW OF SYSTEMS Constitutional: Denies malaise, fevers Cardiovascular: Denies chest pain, palpitations Respiratory: Denies shortness of breath, wheezing Gastrointestinal: Per HPI Genitourinary: Denies dysuria, polyuria Musculoskeletal: Denies joint swelling, joint stiffness Neurological: Denies numbness, tingling Integumentary: Denies rashes, skin lesions Endocrine: Denies fatigue, weight loss Written informed consent obtained from the patient. Risks (including but not limited to perforation, infection, bloating, bleeding, need for emergent surgeryand loss of life), benefits and alternatives explained and questions answered. The patient verbalized understanding. Based on history patient is an appropriate candidate for the procedure. Malcolm Iglesias MD Documented By: Malcolm Iglesias MD 05/07/22 1449 Signed By: <Electronically signed by Malcolm Iglesias MD> 05/07/22 1449 [facility] Work Phone: [facility] Narrative - Reported* Type Description Date Medical History GERD Medical History depression Surgical History D&C 2001 Surgical History Partial Hysterectomy Hospitalization History Child x2 Hospitalization History Hysterectomy [facility] Other [facility] Narrative - Reported* Type Description Date Medical History GERD Medical History depression Medical History Hypertension Surgical History D&C 2001 Surgical History Partial Hysterectomy Hospitalization History Child x2 Hospitalization History Hysterectomy [facility] Other Hospital Discharge instructions Additional Instructions DISCHARGE INSTRUCTIONS FOR UPPER ENDOSCOPY WHAT TO EXPECT: - You may feel full, gassy or cramping after your procedure. In some cases, this may be from a few hours to a day. Walking may help relieve the discomfort. - Your throat may feel sore today from the scope that the doctor passed through your throat to visualize your stomach. Take a throat lozenge or suck on ice to ease the discomfort. - You may notice some streaks of blood in your sputum if the doctor has taken a biopsy. - You should begin to recover from anesthesia within 1 hour of the procedure, however may feel groggy for the next 24 hours. DO's AND DON'Ts: - Call your doctor right away if you have a hard abdomen, severe pain, vomiting or if you cough up large amounts of blood. - Call your doctor if you develop any rashes, hives or difficulty breathing. - If you take 81 mg aspirin for your heart it is safe to resume this medication. - If you take other blood thinner medications your doctor will instruct you when these can safely be resumed. - Do NOT drive for 24 hours. - Do NOT operate machinery such as power tools, lawn mowers, snow blowers, sewing machines, etc. for 24 hours. - Avoid alcoholic beverages and drugs for allergies, nerves, or sleep. - Do NOT stay alone. Do NOT leave your child unattended. - Do NOT make important personal or business decisions or sign any legal documents. - Eat solid foods and drink liquids in smaller amounts than usual until normal appetite returns. If you should experience an upset stomach, liquids high in sugar content (soda, [place]-[employer], non-acid juices) are recommended. - Do NOT smoke. - Do take it easy today. You need not stay in bed, but avoid strenuous activities such as jogging or working out. FOLLOW UP & RECOMMENDATIONS: - Dr. Iglesias's office will make a follow-up appointment for you - Notify the doctor if you have any problems. - Follow up with PCP. - Office number [phone].[facility] Work Phone: InstructionsNot on filedocumented in this encounter [employer] sones SystemInstructionsNot on filedocumented in this encounter [facility] sones SystemReason for visit [facility] EMPLOYEE, COVID TEST FOR PROCEDUREBryant [employer] Other Chief Complaint and Reason for Visit Chief Complaint pillars Pillars Chief Complaint R13.10 Difficulty Swallowing Chief Complaint R13.10 Difficulty Swallowing Dysphagia Chief Complaint R13.10 Difficulty Swallowing Dysphagia Screening Chief Complaint left shoulder pain Chief Complaint Pillars left shoulder pain Family History Relationship Condition Age at Onset Recorded Date/T alecia Not Specified Malignant neoplasm of breast Unknown grandparent Malignant neoplasm of lung Unknown Advance Directives Advance Directive Response Recorded Date/ Time Advance Directives No November 25 10:57am Advance Directive Response Recorded Date/ Time Advance Directives No November 25 9 9:57am Summary Purpose Additional Source Comments REASON FOR VISIT (unrecogniz ed section and content) Reason Onset Date Comments Sleep Lab 06/05/2023 [facility] Specialty Diagnoses / Procedures Referred By Contac t Referred To Contact Diagnoses Sleep apnea, unspecified type Procedures Home sleep study Elin Patel MD [facility] [place] [address] [id number] Phone: [phone] Referral ID Status Reason Start Date Expiration Date Visits Re quested Visits Authorized [id number] Closed 06/05/2023 06/04/2024 1 1 Reason Comments Eval for ovarian cyst Care Teams (unrecognized sec tion and content) Team Status: Inactive Member Role Status Dates Elin Patel MD Primary Care Provider Active Surinder Del Castillo DO [facility] Attending Provider Active Team Status: Active Member Role Status Dates Elin Patel MD Primary Care Provider Active Team Status: Inactive Member Role Status Dates Elin Patel MD Primary Care Provider Active Malcolm Iglesias MD Attending Provider Active Team Status: Inactive Member Role Status Dates Elin Patel MD Primary Care Provider Active Hafsa Ivey NP-C Attending Provider Active Team Status: Inactive Member Role Status Dates Elin Patel MD Primary Care Provider Active Maxx Cornelius MD Attending Provider Active Team Status: Inactive Member Role Status Dates Elin Patel MD Primary Care Provider Active Referral Self Attending Provider Active Team Status: Inactive Member Role Status Dates Elin Patel MD Primary Care Provider, Attending Garth ruiz Active Insole Cementer Relationship Specialty [place] [address] [address] PCP - General Family Medicine 06/13/23 Insole Cementer Relationship Specialty [place] [address] [address] PCP - General Family Medicine 06/18/23 Insole Cementer Relationship Specialty Start Date End Date Elin Patel MD [address] [place] [id number] PCP - General Family Medicine 11/11/22 Insole Cementer Relationship Specialty [place] [address] [address] PCP - General Family Medicine 06/18/23 Goals (unrecognized section and content) Goals may be documented in a n alternate section INFORMATION SOURCE (unrecogn ized section and content) DATE CREATED AUTHOR 02/06/2022 [facility] DATE CREATED AUTHOR AUTHOR'S ORGANIZ ATION 02/28/2023 [facility] DATE CREATED AUTHOR AUTHOR'S ORGANIZ ATION 06/14/2023 Sabra Tracey [facility] DATE CREATED AUTHOR AUTHOR'S ORGANIZ ATION 06/27/2023 [facility] DATE CREATED AUTHOR AUTHOR'S ORGANIZ ATION 07/09/2023 [facility] FOR RECORDS PERTAINING TO PATIENTS WHO ARE OR HAVE BEEN ENROLLED IN A CHEMICAL DEPENDENCY/SUBSTANCEABUSE PROGRAM, SOME INFORMATION MAY BE OMITTED. This clinical summary was aggregated from multiple sources. Caution should be exercised in using it in the provision of clinical care. This summary normalizes information from multiple sources, and as a consequence, information in this document may materially change the coding, format and clinical context of patient data. In addition, data may be omitted in some cases. CLINICAL DECISIONS SHOULD BE BASED ON THE PRIMARY CLINICAL RECORDS. [employer] provides no warranty or guarantee of the accuracy or completeness of information in this document.
[2023-08-01 06:19] LABS: Basophils Percent Auto 0.5 % (0.2-2.0); Eosinophils Absolute Auto 0.1 10^3/uL (0.0-0.7); Eosinophils Percent Auto 1.6 % (0.9-7.0); Hemoglobin 12.9 g/dL (12.0-16.0); Immature Granulocytes Abs Auto 0.01 10^3/uL (0.00-0.03); Immature Granulocytes Pct Auto 0.2 % (0.0-0.5); Lymphocytes Absolute Auto 2.6 10^3/uL (1.2-3.8); Lymphocytes Percent Auto 47.6 % (20.5-60.0); Mean Corpuscular HGB Conc 33.1 g/dL (29.9-35.2); Mean Corpuscular Hemoglobin 30.6 pg (26.7-34.0); Mean Corpuscular Volume 92.6 fL (81.0-99.0); Mean Platelet Volume 8.8 fL (9.5-13.5); Monocytes Absolute Auto 0.6 10^3/uL (0.3-0.8); Neutrophils Absolute Auto 2.2 10^3/uL (1.4-6.5); Neutrophils Percent Auto 40.1 % (43.0-75.0); Platelet Count 374 10^3/uL (150-450); Red Blood Count 4.21 10^6/uL (4.20-5.40); Red Cell Distribution Width 12.5 % (11.0-15.0); White Blood Count 5.5 10^3/uL (4.0-11.0)
[2023-08-01] MEDS: LACTATED RINGER'S SOLUTION 1,000 ML 50 ML IV ×2 (06:58→08:30)
[2023-08-01] MEDS: SCOPOLAMINE 1 MG/3 DAYS TRANSDERM PATCH 1 PATCH TD (07:25)
--- NOTE | 2023-08-01 09:43 | PM.ONB ---
Brief Operative Note Date of procedure: 08/01/23 Pre-op diagnosis: rt ovarian cyst, pelvic pain Post-op diagnosis: same as pre-op Procedure: NAME OF PROCEDURE: robotic assisted rt ovarian cystectomy PROCEDURE: The patient was taken back to the Operating Room where she was given general anesthesia without difficulty. She was then prepped and draped in the normal sterile fashion after being placed in a dorsal lithotomy position. A wet sponge stick was placed into the patient's vagina. Attention was then turned to the patient's abdomen, where a scalpel was used to make a small infraumbilical incision. The S retractors were then used to dissect the underlying layers until the fascia could be seen. The fascia was then grasped with Tl clamps and tented up. A knife was then used to make a small incision to the fascia. The muscle was identified, at that time two sutures of #0 Vicryl on a GI needle was then used and placed through the fascia. the peritoneum was then identified and entered bluntly. The 10-4 Tere was then placed into the patient's abdomen. This was confirmed with direct visualization of the bowel, using the laparoscope. The patient's abdomen was then insufflated using approximately 4 liters of CO2 gas. Survey of the patient's abdomen demonstrated rt large ovarian cyst simple in appearance approx 7cm in size, absent tubes and uterus. A second and third rt and lt lateral robotic ports which were 8 mm in size, was then placed after the skin incision was made under direct visualization . the robotic arms were engaged. The patient's then had rt ovarian cystectomy performed using the vessel sealer. Excellent hemostasis was noted. The lateral ports were then moved under direct visualization with excellent hemostasis. All instruments were removed from the patient's abdomen. The fascia was closed using the #0 Vicryl on GI needle. The skin was closed using 4-0 Vicryl subcuticularly. All instruments were removed from the patient's vagina as well. The patient was taken out of the dorsal lithotomy position and placed in the supine position and taken to recovery in stable condition. Sponge, lap and needle counts were correct x2. Anesthesia: RADHAA Surgeon: Rj Shah Maintenance Journeyman: Aiyana Pritchard Estimated blood loss (mL): 5 Pathology: other (cyst wall) Condition: stable Disposition: PACU Urinary Catheter Management Urinary Catheter Management Urethral: Cath placed during this visit: no
[2023-08-01] MEDS: HYDROCODONE/ACET 5-325 MG TABLET 1 TAB PO (10:04)
== END 2023-08-01 10:32 | disposition home or self-care (01) ==
PROVIDERS: PCP Family Medicine; Visit Provider Obstetrics & Gynecology
PROC: (CPT 840; principal; 2023-08-01 07:30)
DX: N83.291 Other ovarian cyst, right side (principal); R10.2 Pelvic and perineal pain; F32.A Depression, unspecified; E78.00 Pure hypercholesterolemia, unspecified; I10 Essential (primary) hypertension; J30.2 Other seasonal allergic rhinitis; E66.9 Obesity, unspecified; Z90.710 Acquired absence of both cervix and uterus; Z68.30 Body mass index [BMI] 30.0-30.9, adult
CPT/HCPCS: 58662; 36415; 85025; 88108; 88305; 99999; J1094; J2704

== ENCOUNTER 2023-08-21 19:13 | Outpatient (REF) | payer OTHER, SELFPAY ==
--- OUTSIDE RECORDS SUMMARY | 2023-08-21 19:17 | XMS_ITS | CCD ---
Author Organization [facility] Care Team Providers Care Document Specialist Name Role Phone Elisa Antony Unavailable FinnMariya deshpande Unavailable Ele Friend Unavailable MD Elin Patel Primary Care Provider DO Surinder Del Castillo Attending Provider Malcolm Iglesias Unavailable DR SUKHDEEP SHAH Attending Unavailable DR SUKHDEEP SHAH Consulting Unavailable DR SUKHDEEP SHAH Admitting Unavailable MD Elin Patel Primary Care Provider SHREYA Ivey Attending Provider MD Malcolm Iglesias Attending Provider [phone] MD Maxx Cornelius Attending Provider [phone] Self, Referral Attending Provider Unavailable MD Elin Patel Primary Care Provider [phone] MD Elin Patel Attending Provider [phone] MD Elin Patel Primary Care Provider DO Surinder Del Castillo Attending Provider Unavailable Primary Care Provider UnavailElin Rosado MD Primary Care Provider [phone] SAHIL SANTOYO Referring Unavailable ELIN PATEL Primary Care Unavailable Elin Patel MD Primary Care Provider ELIN PATEL Referring Unavailable ELIN PATEL Primary Care Unavailable Elin Patel MD Primary Care Provider [phone] Sukhdeep Shah Attending Unavailable Elin Patel Primary Care Unavailable Sukhdeep Shah Admitting Unavailable Elin Patel [facility] Attending Unavailable Elin Patel Admitting Unavailable Elin Patel Primary Care Unavailable Elin Patel Attending Unavailable ELIN PATEL Attending Unavailable SUKHDEEP SHAH Attending Unavailable SUKHDEEP SHAH Referring Unavailable SUKHDEEP SHAH Attending Unavailable JERICA WILLETT Attending Unavailable Allergies Allergy Classification Reported Allergen(s) Allergy Type Date of Onset Reaction(s) Facility (1 source) Desonide Drug Allergy 6 [facility] Repository (3 sources) Wound Dressing Adhesive Propensity to adverse reactions to drug 3 [facility] Medications Current Medications Medication Drug Class(es) Dates Sig (Normalized) Sig (Original) amylase 233763 unt / lipase 06864 unt / protease 986696 unt delayed release oral capsule (11 sources) Start: 05-07-2022 take [id number] capsules by mouth three times daily at mealtime Yzfgrc-Zcdqdfzx-Nyfj ase (Creon) 36,000-114,000- 180,000 unit Capsule,Delayed Release(Dr/Ec) Active 1 CAP PO Three times daily May 07, 2022 1:00am administer with meals and/or snacks aspirin 81 mg delayed release oral tablet (8 sources) Platelet Aggregation Inhibitor, Nonsteroidal Anti-inflammatory Drug Start: 05-07-2022 take 81 mg by mouth once daily Aspirin Active 81 MG PO Daily May 07, 2022 1:00am cholecalciferol 0.125 mg oral tablet (11 sources) Vitamin D Start: 05-07-2022 take 1 [...] same time. 0 Active Cholecalciferol 50 MCG (1999 UT) TABS every 24 hours 0 Active Creon 42042 UNIT (14 sources) Start: 10-04-2020 take 1 capsule by mouth three times daily Creon 67329 UNIT 1 CAPSULE Orally THREE TIMES A DAY for 30 days September, Active estradiol 1 mg oral tablet (11 sources) Estrogen Start: 05-07-2022 take 1 mg [...] Start: 03-06-2021 take 1 capsule by mo [facility] every twelve hours Macrobid 100 MG 1 [...] Start: 03-06-2021 take 2 tablets by mo ut every eight hours Pyridium 100 MG 2 [...] 07, 2022 2:16pm take 2 tablets by mo [facility] every twenty-four hours Sertraline HCl 100 [...] [Essential (primary) hypertension] Onset: 3 06-13-2023 Chronic Genitourinary symptoms and ill-defined conditions (3 sources) Dysuria; Translations: [Hematuria, unspecified] Onset: 1 Resolved: 1 Episodic Immunizations and screening for infectious disease (6 [...] Difficulty swallowing; Translations: [Dysphagia, unspecified] Episodic Other gastrointestinal disorders (2 sources) Dysphagia, unspecified Episodic Other nervous system disorders (3 sources) [...] Translations: [Pain in left shoulder] Onset: 3 Urinary tract infections (2 sources) Acute cystitis with hematuria; Translations: [Urinary tract infection, site not specified] Onset: 1 Resolved: 1 Episodic Past or Other Problems Problem Classification Problem Date Documented Da te Episodic/Chronic Other gastrointestinal disorders (20 sources) Irritable bowel syndrome; Translations: [Mixed irritable bowel syndrome] Onset: 11-12-2022 Resolved: 01-20-2023 03-08-2019 Chronic Other gastrointestinal disorders (3 sources) Dysphagia; Translations: [...] Test Name Value Interpretation Reference Range Facility [facility] 08-01-2023 L Specimen: [id number] Received: 08/04/23 Status: TATYANA Ferraro Num: [id number] Spec Type: Cytology Subm Dr: Sukhdeep Shah Tissues: A CYST FLUID (RT CYST WALL) Procedures: HE/2, Gross/Micro L4, Cyto Prepstain, PAPSTN Age/ Patient Sex Location Account Attending Physician Kathy Freeman 42/F [facility] [id number] Sukhdeep Shah SPEC NUM: [id number] RECD: 08/04/23 STATUS: TATYANA EFRRARO NUM: [id number] PETER: 08/01/23-902 [facility] DR: Sukhdeep Shah ENTERED: 08/04/23-12[address] [facility] DR: Jones,Lab SPEC TYPE: Cytology DEPT: [facility] ENTERED BY: [id number] RECV BY: [id number] ORDERED: HE/2, Gross/Micro L4, Cyto Prepstain, PAPSTN ORDERED: HE/2, Gross/Micro L4, Cyto Prepstain, PAPSTN Pathological Diagnosis Ovarian cyst fluid, fine-needle aspiration: - Negative for malignancy. - Nearly acellular specimen with occasional macrophages and proteinaceous debris. Gross Description Received fresh labeled with the patient's name, date of and Rt ovarian cyst fluid per requisition is 20 ml colorless clear unfixed fluid. 1 Thin Prep slides are prepared. 1 cell blocks are prepared. (CC/nh) CPT Codes 12008, 70380 -------- -------- Specimen: [id number] Received: 08/04/23 Status: TATYANA Ferraro Num: [id number] Spec Type: Cytology Subm Dr: Sukhdeep Shah Tissues: A CYST FLUID (RT CYST WALL) Procedures: HE/2, Gross/Micro L4, Cyto Prepstain, PAPSTN -------- Patient: Kathy Freeman [id number] (Continued) -------- Signed (signature on file) Bre Duvall MD 08/05/23 0950 [facility] L Specimen: [id number] Received: 08/01/23 Status: TATYANA Ferraro Num: [id number] Spec Type: Surgical Subm Dr: Sukhdeep Shah Tissues: A Ovary - Cyst, Non-Neoplastic (OVARIAN CYST WALL RT) Procedures: HE/3, Gross/Micro L4 Age/ Patient Sex Location Account Attending Physician Kathy Freeman 42/F [facility] [id number] Sukhdeep Shah SPEC NUM: [id number] RECD: 08/01/23 STATUS: TATYANA FERRARO NUM: [id number] PETER: 08/01/[address]: Sukhdeep Shah ENTERED: 08/01/23 [facility] DR: Jones,Lab SPEC TYPE: Surgical DEPT: [facility] ORDERED: HE/3, Gross/Micro L4 ORDERED: HE/3, Gross/Micro L4 Pathological Diagnosis Right ovarian cystic wall, cystectomy: -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 No discrete excrescences are identified on the surfaces of the membranous tissues. No discrete ovarian parenchyma is identified. A fimbriated fallopian tube is identified within the tissues measuring 4.5 x 1.0 x 0.5 cm. Sectioning reveals a patent lumen. Piling Setter sections are submitted in 2 cassettes as follows: A1 - Membranous tissues A2 - Fallopian tube -------- Specimen: [id number] Received: 08/01/23 Status: TATYANA Ferraro Num: [id number] Spec Type: Surgical Subm Dr: Sukhdeep Shah Tissues: A Ovary - Cyst, Non-Neoplastic (OVARIAN CYST WALL RT) Procedures: HE/3, Gross/Micro L4 -------- Patient: Kathy Freeman [id number] (Continued) -------- Specimen: [id number] Received: 08/01/23 (Continued) Signed (signature on file) Britany Panda MD 08/04/23 1804 -------- Specimen: [id number] Received: 08/01/23 Status: TATYANA Ferraro Num: [id number] Spec Type: Surgical Subm Dr: Sukhdeep Shah Tissues: A Ovary - Cyst, Non-Neoplastic (OVARIAN CYST WALL RT) Procedures: HE/3, Gross/Micro L4 -------- Patient: Kathy Freeman [id number] (Continued) -------- Specimen: [id number] Received: 08/01/23 (Continued) CPT Codes 00392 -------- -------- Specimen: [id number] Received: 08/01/23 Status: TATYANA Ferraro Num: [id number] Spec Type: Surgical Subm Dr: Sukhdeep Shah Tissues: A Ovary - Cyst, Non-Neoplastic (OVARIAN CYST WALL RT) Procedures: HE/3, Gross/Micro L4 -------- Patient: Kathy Freeman [id number] (Continued) -------- Signed (signature on file) Britany Panda MD 08/04/231803 [facility] US PELVISon 07-04-2023 US PELVIS EXAMINATION: US [...] Differentialon 06-13-2023 Basophils (Bld) [#/Vol] 0.03 10*3/uL [facility] Basophils/100 WBC (Bld) 0 % 0 - 2 % [facility] Eosinophils (Bld) [#/Vol] 0.11 10*3/uL [facility] Eosinophils/100 WBC (Bld) 2 % 0 - 5 % [facility] Erythrocyte distribution width (RBC) [Ratio] 12.3 % 12.1 - 15.2 % [facility] Hematocrit (Bld) [Volume fraction] 40.0 % 36.0 - 46.0 % [facility] Hemoglobin (Bld) [Mass/Vol] 13.4 g/dL 12.0 - 16.0 g/dL [facility] Immature granulocytes (Bld) [#/Vol] 0.02 10*3/uL [facility] Immature granulocytes/100 WBC (Bld) 0 % 0 - 5 % [facility] Lymphocytes/100 WBC (Bld) 32 % 15 - 40 % [facility] Lymphocytes/100 WBC (Bld) 2.24 % [facility] MCH (RBC) [Entitic mass] 29.8 pg 26.0 - 34.0 pg [facility] MCHC (RBC) [Mass/Vol] 33.5 g/dL 31.0 - 37.0 g/dL [facility] MCV (RBC) [Entitic vol] 88.9 fL 80.0 - 100.0 fL [facility] Monocytes/100 WBC (Bld) 7 % 4 - 8 % [facility] Monocytes/100 WBC (Bld) 0.46 % [facility] Neutrophils/100 WBC (Bld) 59 % 47 - 75 % [facility] Platelet mean volume (Bld) [Entitic vol] 8.3 fL 6.0 - 12.0 fL [facility] Platelets (Bld) [#/Vol] 341 10*3/uL [facility] RBC (Bld) [#/Vol] 4.50 10*6/uL 4.00 - 5.2 0 m/uL [facility] Segmented neutrophils/100 WBC (Bld) 4.18 % [facility] WBC other (Bld) [#/Vol] 7.0 [facility] CBC with Diffon 06-13-2023 Abs. Basophil 0.03 k/uL Normal 0.00-0.20 [facility] Comment on above: Performed By: #### C P, CDP #### [facility] [address] [id number] Clinical Trial Assistant: Angel Valdes MD Abs.Imm.Granulocyte 0.02 k/uL Normal 0.00-0.30 [facility] Comment on above: Performed By: #### C P, CDP #### [facility] [address] [id number] Clinical Trial Assistant: Angel Valdes MD Abs.Neutrophil (Seg) 4.18 k/uL Normal 2.5-7.0 [facility] Comment on above: Performed By: #### C P, CDP #### [facility] [address] [place] [address] Clinical Trial Assistant: Angel Valdes MD Basophils/100 WBC (Bld) 0 % Normal 0-2 [facility] Comment on above: Performed By: #### C P, CDP #### [facility] [address] [place] [address] Clinical Trial Assistant: Angel Valdes MD Eosinophils (Bld) [#/Vol] 0.11 10*3/uL Normal 0.00-0.40 [facility] Comment on above: Performed By: #### C P, CDP #### [facility] [address] [id number] Clinical Trial Assistant: Angel Valdes MD Eosinophils/100 WBC (Bld) 2 % Normal 0-5 [facility] Comment on above: Performed By: #### C P, CDP #### [facility] [address] [place], [place] [id number] Clinical Trial Assistant: Angel Valdes MD Erythrocyte distribution width (RBC) [Ratio] 12.3 % Normal 12.1-15.2 [facility] Comment on above: Performed By: #### C P, CDP #### [facility] [address] [place], [place] [id number] Clinical Trial Assistant: Angel Valdes MD Hematocrit (Bld) [Volume fraction] 40.0 % Normal 36.0-46.0 [facility] Comment on above: Performed By: #### C P, CDP #### [facility] [address] [place], [place] [id number] Clinical Trial Assistant: Angel Valdes MD Hemoglobin (Bld) [Mass/Vol] 13.4 g/dL Normal 12.0-16.0 [facility] Comment on above: Performed By: #### C P, CDP #### [facility] [address] [place], [place] [id number] Clinical Trial Assistant: Angel Valdes MD Immature granulocytes/100 WBC (Bld) 0 % Normal 0-5 [facility] Comment on above: Performed By: #### C P, CDP #### [facility] [address] [place], [place] [id number] Clinical Trial Assistant: Angel Valdes MD Lymphocytes (Bld) [#/Vol] 2.24 10*3/uL Normal 1.00-4.80 [facility] Comment on above: Performed By: #### C P, CDP #### [facility] [address] [place], [place] [id number] Clinical Trial Assistant: Angel Valdes MD Lymphocytes/100 WBC (Bld) 32 % Normal 15-40 [facility] Comment on above: Performed By: #### C P, CDP #### [facility] [address] [place] [address] Clinical Trial Assistant: Angel Valdes MD MCH (RBC) [Entitic mass] 29.8 pg Normal 26.0-34.0 [facility] Comment on above: Performed By: #### C P, CDP #### [facility] [address] [place] [address] Clinical Trial Assistant: Angel Valdes MD MCHC (RBC) [Mass/Vol] 33.5 g/dL Normal 31.0-37.0 [facility] Comment on above: Performed By: #### C P, CDP #### [facility] [address] [place] [address] Clinical Trial Assistant: Angel Valdes MD MCV (RBC) [Entitic vol] 88.9 fL Normal 80.0-100.0 [facility] Comment on above: Performed By: #### C P, CDP #### [facility] [address] [place] [address] Clinical Trial Assistant: Angel Valdes MD Monocytes (Bld) [#/Vol] 0.46 10*3/uL Normal 0.00-1.00 [facility] Comment on above: Performed By: #### C P, CDP #### [facility] [address] [place] [address] Clinical Trial Assistant: Angel Valdes MD Monocytes/100 WBC (Bld) 7 % Normal 4-8 [facility] Comment on above: Performed By: #### C P, CDP #### [facility] [address] [place] [address] Clinical Trial Assistant: Angel Valdes MD Neutrophil (Seg) 59 % Normal 47-75 [facility] Comment on above: Performed By: #### C P, CDP #### [facility] [address] [place] [address] Clinical Trial Assistant: Angel Valdes MD Platelet mean volume (Bld) [Entitic vol] 8.3 fL Normal 6.0-12.0 [facility] Comment on above: Performed By: #### C P, CDP #### [facility] [address] [place] [address] Clinical Trial Assistant: Angel Valdes MD Platelets (Bld) [#/Vol] 341 10*3/uL Normal 140-450 [facility] Comment on above: Performed By: #### C P, CDP #### [facility] [address] [place] [address] Clinical Trial Assistant: Angel Valdes MD RBC (Bld) [#/Vol] 4.50 10*6/uL Normal 4.00-5.20 [facility] Comment on above: Performed By: #### C P, CDP #### [facility] [address] [place] [address] Clinical Trial Assistant: Angel Valdes MD WBC (Bld) [#/Vol] 7.0 10*3/uL Normal 3.5-11.0 [facility] Comment on above: Performed By: #### C P, CDP #### [facility] [address] [place] [address] Clinical Trial Assistant: Angel Valdes MD Comp Metabolic Profon 2023 Albumin [Mass/Vol] 4.2 g/dL Normal 3.5-5.2 [facility] Comment on above: Performed By: #### C P, CDP #### [facility] [address] [place] [address] Clinical Trial Assistant: Angel Valdes MD Alkaline Phos 75 U/L Normal 35-104 [facility] Comment on above: Performed By: #### C P, CDP #### [facility] [address] [place], [place] [id number] Clinical Trial Assistant: Angel Valdes MD ALT [Catalytic activity/Vol] 16 U/L Normal 5-33 [facility] Comment on above: Performed By: #### C P, CDP #### [facility] [address] [place], [place] [id number] Clinical Trial Assistant: Angel Valdes MD Anion gap [Moles/Vol] 11 mmol/L Normal 9-17 [facility] Comment on above: Performed By: #### C P, CDP #### [facility] [address] [place], [place] [id number] Clinical Trial Assistant: Angel Valdes MD AST [Catalytic activity/Vol] 15 U/L Normal <32 [facility] Comment on above: Performed By: #### C P, CDP #### [facility] [address] [place] [address] Clinical Trial Assistant: Angel Valdes MD Bilirubin [Mass/Vol] 0.3 mg/dL Normal 0.3-1.2 [facility] Comment on above: Performed By: #### C P, CDP #### [facility] [address] [place] [address] Clinical Trial Assistant: Angel Valdes MD BUN/CRE Ratio 11 Normal 9-20 [facility] Comment on above: Performed By: #### C P, CDP #### [facility] [address] [place], [place] [id number] Clinical Trial Assistant: Angel Valdes MD Calcium [Mass/Vol] 10.3 mg/dL Normal 8.6-10.4 [facility] Comment on above: Performed By: #### C P, CDP #### [facility] [address] [place], [place] [id number] Clinical Trial Assistant: Angel Valdes MD Chloride [Moles/Vol] 101 mmol/L Normal 98-107 [facility] Comment on above: Performed By: #### C P, CDP #### [facility] [address] [place] [address] Clinical Trial Assistant: Angel Valdes MD CO2 [Moles/Vol] 25 mmol/L Normal 20-31 [facility] Comment on above: Performed By: #### C P, CDP #### [facility] [address] [place] [address] Clinical Trial Assistant: Angel Valdes MD Creatinine [Mass/Vol] 0.7 mg/dL Normal 0.5-0.9 [facility] Comment on above: Performed By: #### C P, CDP #### [facility] [address] [place] [address] Clinical Trial Assistant: Angel Valdes MD GFR/1.73 sq M.predicted among non-blacks MDRD (S/P/Bld) [Vol rate/Area] mL/min/{1.73_m2} Normal >60 [facility] Comment on above: Result Comment: These [...] Performed By: #### C P, CDP #### [facility] [address] [place] [address] Clinical Trial Assistant: Angel Valdes MD Glucose [Mass/Vol] 120 mg/dL High 70-99 [facility] Comment on above: Performed By: #### C P, CDP #### [facility] [address] [place] [address] Clinical Trial Assistant: Angel Valdes MD Potassium [Moles/Vol] 4.0 mmol/L Normal 3.7-5.3 [facility] Comment on above: Performed By: #### C P, CDP #### [facility] [address] [place], [place] [id number] Clinical Trial Assistant: Angel Valdes MD Protein [Mass/Vol] 7.4 g/dL Normal 6.4-8.3 [facility] Comment on above: Performed By: #### C P, CDP #### [facility] [address] [place], [place] [id number] Clinical Trial Assistant: Angel Valdes MD Sodium [Moles/Vol] 137 mmol/L Normal 135-144 [facility] Comment on above: Performed By: #### C P, CDP #### [facility] [address] [place], [place] [address] Clinical Trial Assistant: Angel Valdes MD Urea nitrogen [Mass/Vol] 8 mg/dL Normal 6-20 [facility] Comment on above: Performed By: #### C P, CDP #### [facility] [address] [place] [address] Clinical Trial Assistant: Angel Valdes MD Comprehensive Metabolic Pane [facility] 06-13-2023 Albumin [Mass/Vol] 4.2 g/dL 3.5 - 5.2 g/dL [facility] ALP [Catalytic activity/Vol] 75 U/L 35 - 104 U/L [facility] ALT [Catalytic activity/Vol] 16 U/L 5 - 33 U/L [facility] Anion gap [Moles/Vol] 11 mmol/L 9 - 17 mmol/L [facility] AST [Catalytic activity/Vol] 15 U/L NINF - 32 U/L [facility] Bilirubin [Mass/Vol] 0.3 mg/dL 0.3 - 1 .2 mg/dL [facility] Calcium [Mass/Vol] 10.3 mg/dL 8.6 - 10. 4 mg/dL [facility] Chloride [Moles/Vol] 101 mmol/L 98 - 10 7 mmol/L [facility] CO2 [Moles/Vol] 25 mmol/L 20 - 31 mmol/L [facility] Creatinine [Mass/Vol] 0.7 mg/dL 0.5 - 0.9 mg/dL [facility] GFR/1.73 sq M.predicted MDRD (S/P/Bld) [Vol rate/Area] - PINF [facility] Comment on above: These results are not [...] 120 mg/dL High 70 - 99 mg/dL [facility] Interpretation and review of laboratory results Abnormal [facility] Potassium [Moles/Vol] 4.0 mmol/L 3.7 - 5.3 mmol/L [facility] Protein [Mass/Vol] 7.4 g/dL 6.4 - 8.3 g/dL [facility] Sodium [Moles/Vol] 137 mmol/L 135 - 144 mmol/L [facility] Urea nitrogen [Mass/Vol] 8 mg/dL 6 - 20 mg/dL [facility] Urea nitrogen/Creatinine [Mass ratio] 11 mg/mg 9 - 20 [facility] Alanine aminotransferase [En zymatic activity/volume] in Serum or PlasmaOrdered By: Surinder Del Castillo on 12-24-2022 ALT [Catalytic activity/Vol] 16 U/L 7-52 [facility] Albumin [Mass/volume] in Ser um or Plasma by Bromocresol green (BCG) dye binding methoOrdered By: Surinder Del Castillo on 12-24-2022 Albumin BCG dye [Mass/Vol] 4.3 g/dL 3.5-5.7 [facility] Alkaline phosphatase [Enzyma tic activity/volume] in Serum or PlasmaOrdered By: Surinder Del Castillo on 12-24-2022 ALP [Catalytic activity/Vol] 66 U/L 34-104 [facility] Aspartate aminotransferase [ Enzymatic activity/volume] in Serum or PlasmaOrdered By: Surinder Del Castillo on 12-24-2022 AST [Catalytic activity/Vol] 16 U/L 13-39 [facility] Basophils Auto (Bld) [#/Vol] Ordered By: Surinder Del Castillo on 12-24-2022 Basophils (Bld) [#/Vol] 0.0 10*3/uL 0.0-0.2 [facility] Basophils/100 WBC Auto (Bld) Ordered By: Surinder Del Castillo on 12-24-2022 Basophils/100 WBC (Bld) 0.5 % . F [facility] Bilirubin.total [Mass/volume ] in Serum or PlasmaOrdered By: Surinder Del Castillo on 12-24-2022 Bilirubin [Mass/Vol] 0.3 mg/dL 0.3-1.0 [facility] Calcium [Mass/volume] in Ser um or PlasmaOrdered By: Surinder Del Castillo on 12-24-2022 Calcium [Mass/Vol] 11.0 mg/dL 8.6-10.3 [facility] Carbon dioxide, total [Moles /volume] in Serum or PlasmaOrdered By: Surinder Del Castillo on 12-24-2022 CO2 [Moles/Vol] 29.3 mmol/L 21.0-31.[address] [facility] Chloride [Moles/volume] in S carlitos or PlasmaOrdered By: Surinder Del Castillo on 12-24-2022 Chloride [Moles/Vol] 105 mmol/L 98-107 [facility] Cholesterol [Mass/volume] in Serum or PlasmaOrdered By: Surinder Del Castillo on 12-24-2022 Cholesterol [Mass/Vol] 156 mg/dL 140-200 [facility] Comment on above: Chol less than 200 m g/dl low riskChol 201-239 mg/dl borderline riskChol 240 mg/dl and greater high risk Cholesterol in LDL Calc [Mas s/Vol]Ordered By: Surinder Del Castillo on 12-24-2022 Cholesterol in LDL [Mass/Vol] 48 mg/dL 0-100 [facility] Comment on above: LDL ATP III CLASSIFI CATIONLDL less than 100 mg/dL OptimalLDL 100-129 mg/dL Near or above optimalLDL 130-159 mg/dL Borderline highLDL 160-189 mg/dL HighLDL greater than 189 mg/dL Very high Cholesterol in VLDL Calc [Ma ss/Vol]Ordered By: Surinder Del Castillo on 12-24-2022 Cholesterol in VLDL [Mass/Vol] 60 mg/dL [facility] Creatinine [Mass/volume] in Serum or PlasmaOrdered By: Surinder Del Castillo on 12-24-2022 Creatinine [Mass/Vol] 0.74 mg/dL 0.60-1.20 [facility] Employee Comp Metabolic Pane laverne 12-24-2022 Albumin [Mass/Vol] 4.3 g/dL Normal 3.5-5.7 [facility] Comment on above: Performed By: #### P ILLAR LIPID, PILLAR TSH, PILLAR CBC, PILLAR CMP #### [facility] [address] [place] [address] [place] #### NICOTINE QUAL #### [facility] , Albumin/Globulin [Mass ratio] 1.7 {ratio} Normal [facility] Comment on above: Performed By: #### P ILLAR LIPID, PILLAR TSH, PILLAR CBC, PILLAR CMP #### [facility] [address] [place] [address] [place] #### NICOTINE QUAL #### [facility] , ALP [Catalytic activity/Vol] 66 U/L Normal 34-104 [facility] Comment on above: Performed By: #### P ILLAR LIPID, PILLAR TSH, PILLAR CBC, PILLAR CMP #### [facility] [address] [place] [address] [place] #### NICOTINE QUAL #### [facility] , ALT [Catalytic activity/Vol] 16 U/L Normal 7-52 [facility] Comment on above: Performed By: #### P ILLAR LIPID, PILLAR TSH, PILLAR CBC, PILLAR CMP #### [facility] [address] [place] [address] [place] #### NICOTINE QUAL #### [facility] , Anion gap [Moles/Vol] 10.4 mmol/L Normal 6.0-15.0 [facility] Comment on above: Performed By: #### P ILLAR LIPID, PILLAR TSH, PILLAR CBC, PILLAR CMP #### [facility] [address] [place] [address] [place] #### NICOTINE QUAL #### [facility] , AST [Catalytic activity/Vol] 16 U/L Normal 13-39 [facility] Comment on above: Performed By: #### P ILLAR LIPID, PILLAR TSH, PILLAR CBC, PILLAR CMP #### [facility] [address] [place] [address] [place] #### NICOTINE QUAL #### [facility] , Bilirubin [Mass/Vol] 0.3 mg/dL Normal 0.3-1.0 [facility] Comment on above: Performed By: #### P ILLAR LIPID, PILLAR TSH, PILLAR CBC, PILLAR CMP #### [facility] [address] [place] [address] [place] #### NICOTINE QUAL #### [facility] , Calcium [Mass/Vol] 11.0 mg/dL High 8.6-10.3 [facility] Comment on above: Performed By: #### P ILLAR LIPID, PILLAR TSH, PILLAR CBC, PILLAR CMP #### [place] [address] [place] #### NICOTINE QUAL #### [facility] , Chloride [Moles/Vol] 105 mmol/L Normal 98-107 [facility] Comment on above: Performed By: #### P ILLAR LIPID, PILLAR TSH, PILLAR CBC, PILLAR CMP #### [facility] [address] [place] [address] [place] #### NICOTINE QUAL #### [facility] , CO2 [Moles/Vol] 29.3 mmol/L Normal 21.0-31.[address] [facility] Comment on above: Performed By: #### P ILLAR LIPID, PILLAR TSH, PILLAR CBC, PILLAR CMP #### [facility] [address] [place] [address] [place] #### NICOTINE QUAL #### [facility] , Creatinine [Mass/Vol] 0.74 mg/dL Normal 0.60-1.20 [facility] Comment on above: Performed By: #### P ILLAR LIPID, PILLAR TSH, PILLAR CBC, PILLAR CMP #### [facility] [address] [place] [address] [place] #### NICOTINE QUAL #### [facility] , GFR/1.73 sq M.predicted MDRD (S/P/Bld) [Vol rate/Area] mL/min/{1.73_m2} Normal [facility] Comment on above: Performed By: #### P ILLAR LIPID, PILLAR TSH, PILLAR CBC, PILLAR CMP #### [facility] [address] [place] [address] #### NICOTINE QUAL #### [facility] , Globulin (S) [Mass/Vol] 2.5 g/dL Normal [facility] Comment on above: Performed By: #### P ILLAR LIPID, PILLAR TSH, PILLAR CBC, PILLAR CMP #### [facility] [address] [place] [address] [place] #### NICOTINE QUAL #### [facility] , Glucose [Mass/Vol] 84 mg/dL Normal 70-100 [facility] Comment on above: Performed By: #### P ILLAR LIPID, PILLAR TSH, PILLAR CBC, PILLAR CMP #### [place] [address] [place] #### NICOTINE QUAL #### [facility] , Potassium [Moles/Vol] 3.7 mmol/L Normal 3.5-5.1 [facility] Comment on above: Performed By: #### P ILLAR LIPID, PILLAR TSH, PILLAR CBC, PILLAR CMP #### [facility] [address] [place] [address] [place] #### NICOTINE QUAL #### [facility] , Protein [Mass/Vol] 6.8 g/dL Normal 6.4-8.9 [facility] Comment on above: Performed By: #### P ILLAR LIPID, PILLAR TSH, PILLAR CBC, PILLAR CMP #### [address] #### NICOTINE QUAL #### [facility] , Sodium [Moles/Vol] 141 mmol/L Normal 136-145 [facility] Comment on above: Performed By: #### P ILLAR LIPID, PILLAR TSH, PILLAR CBC, PILLAR CMP #### [address] #### NICOTINE QUAL #### [facility] , Urea nitrogen [Mass/Vol] 13 mg/dL Normal 7-25 [facility] Comment on above: Performed By: #### P ILLAR LIPID, PILLAR TSH, PILLAR CBC, PILLAR CMP #### [address] #### NICOTINE QUAL #### [facility] , Employee Complete Blood Coun ton 12-24-2022 Basophils (Bld) [#/Vol] 0.0 10*3/uL Normal 0.0-0.2 [facility] Comment on above: Result Comment: PERF ORMED BY: [place] [address] PATHOLOGIST [employer] LUCERO AREVALO M.D. Performed By: #### P ILLAR LIPID, PILLAR TSH, PILLAR CBC, PILLAR CMP #### [place] [address] [place] #### NICOTINE QUAL #### [facility] , Basophils/100 WBC (Bld) 0.5 % Normal . [facility] Comment on above: Performed By: #### P ILLAR LIPID, PILLAR TSH, PILLAR CBC, PILLAR CMP #### [place] [address] [place] #### NICOTINE QUAL #### [facility] , Eosinophils (Bld) [#/Vol] 0.1 10*3/uL Normal 0.0-0.45 [facility] Comment on above: Performed By: #### P ILLAR LIPID, PILLAR TSH, PILLAR CBC, PILLAR CMP #### [facility] [address] [place] [address] [place] #### NICOTINE QUAL #### [facility] , Eosinophils/100 WBC (Bld) 1.1 % Normal . [facility] Comment on above: Performed By: #### P ILLAR LIPID, PILLAR TSH, PILLAR CBC, PILLAR CMP #### [place] [address] [place] #### NICOTINE QUAL #### [facility] , Erythrocyte distribution width (RBC) [Ratio] 12.8 % Normal 11.9-15.3 [facility] Comment on above: Performed By: #### P ILLAR LIPID, PILLAR TSH, PILLAR CBC, PILLAR CMP #### [address] #### NICOTINE QUAL #### [facility] , Hematocrit (Bld) [Volume fraction] 38.9 % Normal 34.0-46.4 [facility] Comment on above: Performed By: #### P ILLAR LIPID, PILLAR TSH, PILLAR CBC, PILLAR CMP #### [facility] [address] [place] [address] [place] #### NICOTINE QUAL #### [facility] , Hemoglobin (Bld) [Mass/Vol] 13.2 g/dL Normal 11.8-15.4 [facility] Comment on above: Performed By: #### P ILLAR LIPID, PILLAR TSH, PILLAR CBC, PILLAR CMP #### [facility] [address] [place] [address] [place] #### NICOTINE QUAL #### [facility] , Lymphocytes (Bld) [#/Vol] 2.2 10*3/uL Normal 1.00-4.8 [facility] Comment on above: Performed By: #### P ILLAR LIPID, PILLAR TSH, PILLAR CBC, PILLAR CMP #### [facility] [address] [place] [address] #### NICOTINE QUAL #### [facility] , Lymphocytes/100 WBC (Bld) 30.4 % Normal . [facility] Comment on above: Performed By: #### P ILLAR LIPID, PILLAR TSH, PILLAR CBC, PILLAR CMP #### [address] #### NICOTINE QUAL #### [facility] , MCH (RBC) [Entitic mass] 30.8 pg Normal 24.7-34.3 [facility] Comment on above: Performed By: #### P ILLAR LIPID, PILLAR TSH, PILLAR CBC, PILLAR CMP #### [facility] [address] [place] [address] #### NICOTINE QUAL #### [facility] , MCV (RBC) [Entitic vol] 90.9 fL Normal 80-100 [facility] Comment on above: Performed By: #### P ILLAR LIPID, PILLAR TSH, PILLAR CBC, PILLAR CMP #### [address] #### NICOTINE QUAL #### [facility] , Mean Corpuscular HGB Conc 33.9 g/dL Normal 32.0-35.0 [facility] Comment on above: Performed By: #### P ILLAR LIPID, PILLAR TSH, PILLAR CBC, PILLAR CMP #### [facility] [address] [place] [address] [place] #### NICOTINE QUAL #### [facility] , Monocytes (Bld) [#/Vol] 0.7 10*3/uL Normal 0.0-0.8 [facility] Comment on above: Performed By: #### P ILLAR LIPID, PILLAR TSH, PILLAR CBC, PILLAR CMP #### [facility] [address] [place] [address] [place] #### NICOTINE QUAL #### [facility] , Monocytes/100 WBC (Bld) 9.6 % Normal . [facility] Comment on above: Performed By: #### P ILLAR LIPID, PILLAR TSH, PILLAR CBC, PILLAR CMP #### [facility] [address] [place] [address] [place] #### NICOTINE QUAL #### [facility] , Neutrophils (Bld) [#/Vol] 4.2 10*3/uL Normal 1.8-7.7 [facility] Comment on above: Performed By: #### P ILLAR LIPID, PILLAR TSH, PILLAR CBC, PILLAR CMP #### [address] #### NICOTINE QUAL #### [facility] , Neutrophils/100 WBC (Bld) 58.4 % Normal . [facility] Comment on above: Performed By: #### P ILLAR LIPID, PILLAR TSH, PILLAR CBC, PILLAR CMP #### [facility] [address] [place] [address] [place] #### NICOTINE QUAL #### [facility] , NRBC% 0.2 /100{WBC} Normal 0-0.5 [facility] Comment on above: Performed By: #### P ILLAR LIPID, PILLAR TSH, PILLAR CBC, PILLAR CMP #### [facility] [address] [place] [address] [place] #### NICOTINE QUAL #### [facility] , Platelet mean volume (Bld) [Entitic vol] 7.5 fL Normal 6.3-10.7 [facility] Comment on above: Performed By: #### P ILLAR LIPID, PILLAR TSH, PILLAR CBC, PILLAR CMP #### [facility] [address] [place] [address] [place] #### NICOTINE QUAL #### [facility] , Platelets (Bld) [#/Vol] 404 10*3/uL Normal 150-450 [facility] Comment on above: Performed By: #### P ILLAR LIPID, PILLAR TSH, PILLAR CBC, PILLAR CMP #### [facility] [address] [place] [address] #### NICOTINE QUAL #### [facility] , RBC (Bld) [#/Vol] 4.28 10*6/uL Normal 3.60-5.00 [facility] Comment on above: Performed By: #### P ILLAR LIPID, PILLAR TSH, PILLAR CBC, PILLAR CMP #### [facility] [address] [place] [address] #### NICOTINE QUAL #### [facility] , WBC (Bld) [#/Vol] 7.2 10*3/uL Normal 3.8-11.6 [facility] Comment on above: Performed By: #### P ILLAR LIPID, PILLAR TSH, PILLAR CBC, PILLAR CMP #### [facility] [address] [place] [address] #### NICOTINE QUAL #### [facility] , Employee Lipid Profileon Cholesterol [Mass/Vol] 156 mg/dL Normal 140-200 [facility] Comment on above: Result Comment: Chol less than 200 mg/dl low risk Chol 201-239 mg/dl borderline risk Chol 240 mg/dl and greater high risk Performed By: #### P ILLAR LIPID, PILLAR TSH, PILLAR CBC, PILLAR CMP #### [facility] [address] [place] [address] [place] #### NICOTINE QUAL #### [facility] , Cholesterol in HDL [Mass/Vol] 48 mg/dL Normal 23-92 [facility] Comment on above: Result Comment: HDL CHOL ATP-III CLASSIFICATION Cardiovascular Risk HDL > or equal to 60 mg/dL LOW HDL < 40 mg/dL HIGH Performed By: #### P ILLAR LIPID, PILLAR TSH, PILLAR CBC, PILLAR CMP #### [facility] [address] [place] [address] [place] #### NICOTINE QUAL #### [facility] , Cholesterol.total/Ashely sterol in HDL [Mass ratio] 3.3 {ratio} Normal <5.0 [facility] Comment on above: Performed By: #### P ILLAR LIPID, PILLAR TSH, PILLAR CBC, PILLAR CMP #### [facility] [address] [place] [address] [place] #### NICOTINE QUAL #### [facility] , LDL Cholesterol,Calculated 48 mg/dL Normal 0-100 [facility] Comment on above: Result Comment: LDL ATP III CLASSIFICATION LDL less than 100 mg/dL Optimal LDL 100-129 mg/dL Near or above optimal LDL 130-159 mg/dL Borderline high LDL 160-189 mg/dL High LDL greater than 189 mg/dL Very high Performed By: #### P ILLAR LIPID, PILLAR TSH, PILLAR CBC, PILLAR CMP #### [place] [address] [place] #### NICOTINE QUAL #### [facility] , Triglyceride w/Reflex 302 mg/dL High 0-149 [facility] Comment on above: Result Comment: TRIG ATP III CLASSIFICATION TRIG less than 150 mg/dL Normal TRIG 150-199 mg/dL Borderline high TRIG 200-500 mg/dL High TRIG greater than 500 mg/dL Very high Standard traceable to the Center for Disease Conrtrol and Prevention (CDC) test method. Performed By: #### P ILLAR LIPID, PILLAR TSH, PILLAR CBC, PILLAR CMP #### [place] [address] [place] #### NICOTINE QUAL #### [facility] , VLDL CHOLESTEROL 60 mg/dL Normal [facility] Comment on above: Performed By: #### P ILLAR LIPID, PILLAR TSH, PILLAR CBC, PILLAR CMP #### [place] [address] [place] #### NICOTINE QUAL #### [facility] , Employee Thyroid Stim Hormon demi 12-24-2022 Employee Thyroid Stim Hormone 3.29 u[iU]/mL Normal 0.45-5.33 [facility] Comment on above: Result Comment: PERF ORMED BY: [facility] [address] [place] [address] PATHOLOGIST [employer] LUCERO AREVALO M.D. Performed By: #### P ILLAR LIPID, PILLAR TSH, PILLAR CBC, PILLAR CMP #### [facility] [address] #### NICOTINE QUAL #### [facility] , Eosinophils Auto (Bld) [#/Vo l]Ordered By: Surinder Del Castillo on 12-24-2022 Eosinophils (Bld) [#/Vol] 0.1 10*3/uL 0.0-0.45 [facility] Eosinophils/100 WBC Auto (Bl d)Ordered By: Surinder Del Castillo on 12-24-2022 Eosinophils/100 WBC (Bld) 1.1 % . [facility] Erythrocyte distribution wid th Auto (RBC) [Ratio]Ordered By: Surinder Del Castillo on 12-24-2022 Erythrocyte distribution width (RBC) [Ratio] 12.8 % 11.9-15.3 [facility] Globulin Calc (S) [Mass/Vol] Ordered By: Surinder Del Castillo on 12-24-2022 Globulin (S) [Mass/Vol] 2.5 g/dL [facility] Glucose [Mass/volume] in Ser um or PlasmaOrdered By: Surinder Del Castillo on 12-24-2022 Glucose [Mass/Vol] 84 mg/dL 70-100 [facility] Hematocrit Auto (Bld) [Volum e fraction]Ordered By: Surinder Del Castillo on 12-24-2022 Hematocrit (Bld) [Volume fraction] 38.9 % 34.0-46.4 [facility] Hemoglobin [Mass/volume] in BloodOrdered By: Surinder Del Castillo on 12-24-2022 Hemoglobin (Bld) [Mass/Vol] 13.2 g/dL 11.8-15.4 [facility] Leukocytes [#/volume] correc candy for nucleated erythrocytes in Blood by Automated counOrdered By: Surinder Del Castillo on 12-24-2022 WBC corrected for nucl RBC Auto (Bld) [#/Vol] 7.2 10*3/uL 3.8-11.6 [facility] Lymphocytes Auto (Bld) [#/Vo l]Ordered By: Surinder Del Castillo on 12-24-2022 Lymphocytes (Bld) [#/Vol] 2.2 10*3/uL 1.00-4.8 [facility] Lymphocytes/100 WBC Auto (Bl d)Ordered By: Surinder Del Castillo on 12-24-2022 Lymphocytes/100 WBC (Bld) 30.4 % . [facility] MCH Auto (RBC) [Entitic mass ]Ordered By: Surinder Del Castillo on 12-24-2022 MCH (RBC) [Entitic mass] 30.8 pg 24.7-34.3 [facility] MCHC Auto (RBC) [Mass/Vol]Or dered By: Surinder Del Castillo on 12-24-2022 MCHC (RBC) [Mass/Vol] 33.9 g/dL 32.0-35.0 [facility] MCV Auto (RBC) [Entitic vol] Ordered By: Surinder Del Castillo on 12-24-2022 MCV (RBC) [Entitic vol] 90.9 fL 80-100 [facility] Monocytes Auto (Bld) [#/Vol] Ordered By: Surinder Del Castillo on 12-24-2022 Monocytes (Bld) [#/Vol] 0.7 10*3/uL 0.0-0.8 [facility] Monocytes/100 WBC Auto (Bld) Ordered By: Surinder Del Castillo on 12-24-2022 Monocytes/100 WBC (Bld) 9.6 % . [facility] Neutrophils Auto (Bld) [#/Vo l]Ordered By: Surinder Del Castillo on 12-24-2022 Neutrophils (Bld) [#/Vol] 4.2 10*3/uL 1.8-7.7 [facility] Neutrophils/100 WBC Auto (Bl d)Ordered By: Surinder Del Castillo on 12-24-2022 Neutrophils/100 WBC (Bld) 58.4 % . [facility] Nicotine Metabolite, Qualon 12-24-2022 Nicotine Metabolite Negative Normal Cutoff=25 [facility] Comment on above: Result Comment: Perf ormed at: BN - [facility] [address] [id number] Clinical Trial Assistant: Jesi Lombardo MD, Phone: [phone] PERFORMED BY: [place] [address] PATHOLOGIST [employer] LUCERO AREVALO M.D. Performed By: #### P ILLAR LIPID, PILLAR TSH, PILLAR CBC, PILLAR CMP #### [address] #### NICOTINE QUAL #### [facility] , No Panel InformationOrdered By: Surinder Del Castillo on 12-24-2022 Estimated GFR (CKD-EPI) > 60.0 mL/Min [facility] Nicotine Metabolite Negative Cutoff=25 [facility] Comment on above: Performed at: [facility] - [facility] [address] [id number] Director: Jesi Lombardo MD, Phone: [phone] Pharmacy Creatinine Clearance (Chem N/A [facility] Nucleated erythrocytes [Pres ence] in Blood by Automated countOrdered By: Surinder Del Castillo on 12-24-2022 Nucleated RBC Auto Ql (Bld) 0.2 /100{WBC} 0-0.5 [facility] Platelet mean volume Auto (B ld) [Entitic vol]Ordered By: Surinder Del Castillo on 12-24-2022 Platelet mean volume (Bld) [Entitic vol] 7.5 fL 6.3-10.7 [facility] Platelets Auto (Bld) [#/Vol] Ordered By: Surinder Del Castillo on 12-24-2022 Platelets (Bld) [#/Vol] 404 10*3/uL 150-450 [facility] Potassium [Moles/volume] in Serum or PlasmaOrdered By: Surinder Del Castillo on 12-24-2022 Potassium [Moles/Vol] 3.7 mmol/L 3.5-5.1 [facility] Protein [Mass/volume] in Ser um or PlasmaOrdered By: Surinder Del Castillo on 12-24-2022 Protein [Mass/Vol] 6.8 g/dL 6.4-8.9 [facility] RBC Auto (Bld) [#/Vol]Ordere d By: Surinder Del Castillo on 12-24-2022 RBC (Bld) [#/Vol] 4.28 10*6/uL 3.60-5.00 [facility] Serum or plasma albumin/glob ulin mass ratioOrdered By: Surinder Del Castillo on 12-24-2022 Albumin/Globulin [Mass ratio] 1.7 {ratio} [facility] Serum or plasma anion gap de terminationOrdered By: Surinder Del Castillo on 12-24-2022 Anion gap [Moles/Vol] 10.4 mmol/L 6.0-15.0 [facility] Serum or plasma high density lipoprotein (HDL) cholesterol measurementOrdered By: Surinder Del Castillo on 12-24-2022 Cholesterol in HDL [Mass/Vol] 48 mg/dL 23-92 [facility] Comment on above: HDL CHOL ATP-III CLA SSIFICATION Cardiovascular RiskHDL > or equal to 60 mg/dL LOWHDL < 40 mg/dL HIGH Serum or plasma total choles terol/high density lipoprotein (HDL) cholesterol mass ratOrdered By: Surinder Del Castillo on 12-24-2022 Cholesterol.total/Ashely sterol in HDL [Mass ratio] 3.3 {ratio} <5.0 [facility] Sodium [Moles/volume] in Ser um or PlasmaOrdered By: Surinder Del Castillo on 12-24-2022 Sodium [Moles/Vol] 141 mmol/L 136-145 [facility] Thyrotropin [Units/volume] i n Serum or PlasmaOrdered By: Surinder Del Castillo on 12-24-2022 TSH Qn 3.29 m[IU]/L 0.45-5.33 [facility] Triglyceride [Mass/volume] i n Serum or PlasmaOrdered By: Surinder Del Castillo on 12-24-2022 Triglyceride [Mass/Vol] 302 mg/dL 0-149 [facility] Comment on above: TRIG ATP III CLASSIF ICATIONTRIG less than 150 mg/dL NormalTRIG 150-199 mg/dL Borderline highTRIG 200-500 mg/dL High TRIG greater than 500 mg/dL Very highStandard traceable to the Center for Disease Conrtrol and Prevention (CDC) test method. Urea nitrogen [Mass/volume] in Serum or PlasmaOrdered By: Surinder Del Castillo on 12-24-2022 Urea nitrogen [Mass/Vol] 13 mg/dL 12-17 [facility] WBC Auto (Bld) [#/Vol]Ordere d By: Surinder Del Castillo on 12-24-2022 WBC (Bld) [#/Vol] 7.2 10*3/uL 3.8-11.6 [facility] Urinalysis - AUTOMATEDon Appearance (U) cloudy [employer] Other Bilirubin Ql (U) small [employer] Other Color (U) orange-brown [employer] Other Glucose Ql (U) Negative [employer] Other Hemoglobin Ql (U) large [employer] Other Ketones Ql (U) Negative [employer] Other Leukocyte esterase Test strip Ql (U) Negative [employer] Other Nitrite Ql (U) Positive [employer] Other pH (U) 5.0 [pH] [employer] Other Protein Ql (U) 100 [employer] Other Specific gravity (U) [Rel density] 1.030 [employer] Other Urobilinogen (U) [Mass/Vol] 1.0 mg/dL [employer] Other Urinalysis - AUTOMATED No rt [employer] Other Urine Cultureon 06-15-2022 Bacteria identified Cx Nom (U) [employer] Other SARS-CoV-2 (COVID-19) RNA NA A+probe Ql (Resp)on 05-28-2022 SARS-CoV-2 (COVID-19) RNA CHARLENE+probe Ql (Unsp spec) Negative [employer] Other SARS-CoV-2 (COVID-19) RNA NA A+probe Ql (Resp)on 05-03-2022 SARS-CoV-2 (COVID-19) RNA CHARLENE+probe Ql (Unsp spec) Negative [employer] Other PAP ACOG PANEL 2: 30 to 65on 02-05-2022 . . Normal [facility] Comment on above: Result Comment: Perf ormed at: WB Performed By: #### [id number] #### [facility] [address] [place] [address] Dr. Josue Panda Age Gdln ACOG Testing [facility] Comment on above: Performed By: #### [id number] #### [facility] [address] [address] [address] Josue Panda DIAGNOSIS: Comment Normal [facility] Comment on above: Result Comment: NEGA TIVE FOR INTRAEPITHELIAL LESION OR MALIGNANCY. Performed at: WB Performed By: #### [id number] #### [facility] [address] [address] [address] Josue Panda HPV Aptima Negative Normal Negative [facility] Comment on above: Result Comment: This nucleic acid amplification test detects fourteen high-risk HPV types (16,18,31,33,35,39,45,51,52,56,58,59,66,68) without differentiation. Performed at: =G Performed By: #### [id number] #### [facility] [address] [place] [address] Dr. Josue Panda Methodology: Comment [facility] Comment on above: Result Comment: This liquid based ThinPrep(R) pap test was screened with the use of an image guided system. Performed at: WB Performed By: #### [id number] #### [facility] [address] [place] [address] Dr. Josue Panda Note: Comment Normal [facility] Comment on above: Result Comment: The Pap smear is a screening test designed to aid in the detection of premalignant and malignant conditions of the uterine cervix. It is not a diagnostic procedure and should not be used as the sole means of detecting cervical cancer. Both false-positive and false-negative reports do occur. . Performed at: WB Performed By: #### [id number] #### [facility] [address] [place] [address] Dr. Josue Panda Performed by: Comment Normal [facility] Comment on above: Result Comment: Philip Valentino, Instrument/Control Technician (ASCP) Performed at: WB Performed By: #### [id number] #### [facility] [address] [place] [address] Dr. Josue Panda Specimen adequacy: Comment Normal [facility] Comment on above: Result Comment: Sati sfactory for evaluation. No endocervical cells are present. This is consistent with a history of hysterectomy. Performed at: WB Performed By: #### [id number] #### [facility] [address] [place] [address] Dr. Josue Panda Basophils Auto (Bld) [#/Vol] Ordered By: Surinder Del Castillo on 01-14-2022 Basophils (Bld) [#/Vol] 0.1 10*3/uL 0.0-0.2 [facility] Basophils/100 WBC Auto (Bld) Ordered By: Surinder Del Castillo on 01-14-2022 Basophils/100 WBC (Bld) 1.2 % . [facility] Blood hemoglobin measurement (mass/volume)Ordered By: Surinder Del Castillo on 01-14-2022 Hemoglobin (Bld) [Mass/Vol] 14.0 g/dL 11.8-15.4 [facility] Blood leukocytes automated c ount (number/volume)Ordered By: Surinder Del Castillo on 01-14-2022 WBC (Bld) [#/Vol] 5.6 10*3/uL 4.5-11.0 [facility] Body fluid albumin measureme nt (mass/volume)Ordered By: Surinder Del Castillo on 01-14-2022 Albumin (Body fld) [Mass/Vol] 4.1 g/dL 3.2-5.5 [facility] Cholesterol [Mass/volume] in Serum or PlasmaOrdered By: Surinder Del Castillo on 01-14-2022 Cholesterol [Mass/Vol] 149 mg/dL 140-200 [facility] Comment on above: Chol less than 200 m g/dl low risk Chol 201-239 mg/dl borderline risk Chol 240 mg/dl and greater high risk Cholesterol in LDL Calc [Mas s/Vol]Ordered By: Surinder Del Castillo on 01-14-2022 Cholesterol in LDL [Mass/Vol] 75 mg/dL 0-100 [facility] Comment on above: LDL ATP III CLASSIFI CATION LDL less than 100 mg/dL Optimal LDL 100-129 mg/dL Near or above optimal LDL 130-159 mg/dL Borderline high LDL 160-189 mg/dL High LDL greater than 189 mg/dL Very high Cholesterol in VLDL Calc [Ma ss/Vol]Ordered By: Surinder Del Castillo on 01-14-2022 Cholesterol in VLDL [Mass/Vol] 33 mg/dL [facility] Creatinine and Glomerular fi ltration rate.predicted panel (S/P/Bld)Ordered By: Surinder Del Castillo on 01-14-2022 Creatinine [Mass/Vol] 0.84 mg/dL 0.44-1.03 [facility] Eosinophils Auto (Bld) [#/Vo l]Ordered By: Surinder Del Castillo on 01-14-2022 Eosinophils (Bld) [#/Vol] 0.1 10*3/uL 0.0-0.45 [facility] Eosinophils/100 WBC Auto (Bl d)Ordered By: Surinder Del Castillo on 01-14-2022 Eosinophils/100 WBC (Bld) 2.6 % . [facility] Erythrocyte distribution wid th Auto (RBC) [Ratio]Ordered By: Surinder Del Castillo on 01-14-2022 Erythrocyte distribution width (RBC) [Ratio] 12.7 % 11.9-15.3 [facility] Estimated glomerular filtrat ion rate (GFR) non- AmericanOrdered By: Surinder Del Castillo on 01-14-2022 GFR/1.73 sq M.predicted among non-blacks MDRD (S/P/Bld) [Vol rate/Area] > 60 mL/Min [facility] Globulin Calc (S) [Mass/Vol] Ordered By: Surinder Del Castillo on 01-14-2022 Globulin (S) [Mass/Vol] 2.8 g/dL F [facility] Hematocrit Auto (Bld) [Volum e fraction]Ordered By: Surinder Del Castillo on 01-14-2022 Hematocrit (Bld) [Volume fraction] 41.5 % 34.0-46.4 [facility] Laboratory - Chemistry and C hemistry - challengeOrdered By: Surinder Del Castillo on 01-14-2022 Glucose [Mass/Vol] 88 mg/dL 70-100 [facility] Laboratory - Hematology and Cell countsOrdered By: Surinder Del Castillo on 01-14-2022 Nucleated RBC/100 WBC (Bld) [Ratio] 0.2 % 0-0.5 [facility] Lymphocytes Auto (Bld) [#/Vo l]Ordered By: Surinder Del Castillo on 01-14-2022 Lymphocytes (Bld) [#/Vol] 1.9 10*3/uL 1.00-4.8 [facility] Lymphocytes/100 WBC Auto (Bl d)Ordered By: Surinder Del Castillo on 01-14-2022 Lymphocytes/100 WBC (Bld) 33.5 % . [facility] MCH Auto (RBC) [Entitic mass ]Ordered By: Surinder Del Castillo on 01-14-2022 MCH (RBC) [Entitic mass] 30.4 pg 24.7-34.3 [facility] MCHC Auto (RBC) [Mass/Vol]Or dered By: Surinder Del Castillo on 01-14-2022 MCHC (RBC) [Mass/Vol] 33.6 g/dL 32.0-35.0 Fir [facility] MCV Auto (RBC) [Entitic vol] Ordered By: Surinder Del Castillo on 01-14-2022 MCV (RBC) [Entitic vol] 90.5 fL 80-100 F [facility] Monocyte %Ordered By: Surinder Del Castillo on 01-14-2022 Monocyte % 169 mg/dL 35-149 [facility] Comment on above: TRIG ATP III CLASSIF ICATION TRIG less than 150 mg/dL Normal TRIG 150-199 mg/dL Borderline high TRIG 200-500 mg/dL High TRIG greater than 500 mg/dL Very high Standard traceable to the Center for Disease Conrtrol and Prevention (CDC) test method. Monocytes Auto (Bld) [#/Vol] Ordered By: Surinder Del Castillo on 01-14-2022 Monocytes (Bld) [#/Vol] 0.6 10*3/uL 0.0-0.8 [facility] Monocytes/100 WBC Auto (Bld) Ordered By: Surinder Del Castillo on 01-14-2022 Monocytes/100 WBC (Bld) 11.4 % . F [facility] Neutrophils Auto (Bld) [#/Vo l]Ordered By: Surinder Del Castillo on 01-14-2022 Neutrophils (Bld) [#/Vol] 2.9 10*3/uL 1.8-7.7 [facility] Neutrophils/100 WBC Auto (Bl d)Ordered By: Surinder Del Castillo on 01-14-2022 Neutrophils/100 WBC (Bld) 51.3 % . [facility] No Panel InformationOrdered By: Surinder Del Castillo on 01-14-2022 Estimated GFR () > 60 mL/Min [facility] Comment on above: GFR estimated refere nce range: According to KDOQI guidelines, <60 ml/min/1.73m2 is sufficient to diagnose a patient with chronic kidney disease. Nicotine Metabolite Negative Cutoff=25 [facility] Comment on above: Performed at: [address] [id number] Clinical Trial Assistant: Jesi Lombardo MD, Phone: [phone] Pharmacy Creatinine Clearance (Chem N/A [facility] Platelet mean volume Auto (B ld) [Entitic vol]Ordered By: Surinder Del Castillo on 01-14-2022 Platelet mean volume (Bld) [Entitic vol] 7.4 fL 6.3-10.7 [facility] Platelets Auto (Bld) [#/Vol] Ordered By: Surinder Del Castillo on 08-22-2022 Platelets (Bld) [#/Vol] 442 10*3/uL 150-450 [facility] Protein [Mass/volume] in Ser um or PlasmaOrdered By: Surinder Del Castillo on 01-14-2022 Protein [Mass/Vol] 6.9 g/dL 6.1-7.9 [facility] RBC Auto (Bld) [#/Vol]Ordere d By: Surinder Del Castillo on 01-14-2022 RBC (Bld) [#/Vol] 4.59 10*6/uL 3.60-5.00 [facility] Serum or plasma alanine mott otransferase measurement without P-5'-P (enzymatic activiOrdered By: Surinder Del Castillo on 01-14-2022 ALT No additional P-5'-P [Catalytic activity/Vol] 60 U/L 10-60 [facility] Serum or plasma albumin/glob ulin mass ratioOrdered By: Surinder Del Castillo on 01-14-2022 Albumin/Globulin [Mass ratio] 1.5 {ratio} [facility] Serum or plasma alkaline riri sphatase measurement (enzymatic activity/volume)Ordered By: Surinder Del Castillo on 01-14-2022 ALP [Catalytic activity/Vol] 64 U/L 32-92 [facility] Serum or plasma aspartate am inotransferase measurement (enzymatic activity/volume)Ordered By: Surinder Del Castillo on 01-14-2022 AST [Catalytic activity/Vol] 51 U/L 10-42 [facility] Serum or plasma calcium zaria urement (mass/volume)Ordered By: Surinder Del Castillo on 01-14-2022 Calcium [Mass/Vol] 10.7 mg/dL 8.2-10.2 [facility] Serum or plasma chloride anil surement (moles/volume)Ordered By: Surinder Del Castillo on 01-14-2022 Chloride [Moles/Vol] 98 mmol/L 95-114 [facility] Serum or plasma high density lipoprotein (HDL) cholesterol measurementOrdered By: Surinder Del Castillo on 01-14-2022 Cholesterol in HDL [Mass/Vol] 40 mg/dL 35-85 [facility] Comment on above: HDL CHOL ATP-III CLA SSIFICATION Cardiovascular Risk HDL > or equal to 60 mg/dL LOW HDL < 40 mg/dL HIGH Serum or plasma potassium me asurement (moles/volume)Ordered By: Surinder Del Castillo on 01-14-2022 Potassium [Moles/Vol] 3.7 mmol/L 3.5-5.1 [facility] Serum or plasma sodium measu rement (moles/volume)Ordered By: Surinder Del Castillo on 01-14-2022 Sodium [Moles/Vol] 136 mmol/L 136-146 [facility] Serum or plasma total biliru bin measurement (mass/volume)Ordered By: Surinder Del Castillo on 01-14-2022 Bilirubin [Mass/Vol] 0.7 mg/dL 0.3-1.2 [facility] Serum or plasma total carbon dioxide measurement (moles/volume)Ordered By: Surinder Del Castillo on 01-14-2022 CO2 [Moles/Vol] 27.9 mmol/L 22.0-30.[address] [facility] Serum or plasma total choles terol/high density lipoprotein (HDL) cholesterol mass ratOrdered By: Surinder Del Castillo on 01-14-2022 Cholesterol.total/Ashely sterol in HDL [Mass ratio] 3.7 {ratio} <5.0 [facility] Serum or plasma urea nitroge n measurement (mass/volume)Ordered By: Surinder Del Castillo on 01-14-2022 Urea nitrogen [Mass/Vol] 7 mg/dL 9-23 [facility] TSH DL <= 0.005 mIU/L QnOrde red By: Surinder Del Castillo on 01-14-2022 TSH Qn 2.11 m[IU]/L 0.45-5.33 [facility] COVID Quick Testingon 2021 Result Negative [employer] Other SARS-CoV-2 (COVID-19) RNA NA A+probe Ql (Resp)on 12-30-2021 SARS-CoV-2 (COVID-19) RNA CHARLENE+probe Ql (Unsp spec) Positive [employer] [facility] Other COVID Quick Testingon 2021 Result Negative [facility] [facility] Other Urine Cultureon 03-06-2021 Urine Culture >100,000 [facility] [facility] Other Urine Culture <16 [facility] [facility] Other Urine Culture <8 [facility] [facility] [employer] Other Urine Culture <4 [employer] [facility] [employer] Other Urine Culture <2 [facility] [facility] [employer] Other Urine Culture <1 [facility] [facility] Other Urine Culture <0.5 [facility] [facility] Other Urine Culture <32 [employer] [facility] Other Urine Culture <2/38 [facility] [facility] Other Vital Signs Date Time Vital Sign Value Performing Clinician Facility 06-20-2023 19:27-0500 Body height 166.[address] [facility] 06-20-2023 19:27-0500 Body mass index (BMI) [Ratio] 36.71 kg/m2 [facility] 06-20-2023 19:27-0500 Body weight 101.[address] [facility] 06-15-2022 10:15-0500 Body height 170.18 cm Elisa Antony Other [facility] Other 06-15-2022 10:15-0500 Body mass index (BMI) [Ratio] 35.08 kg/m2 Elisa Antony Other [facility] Other 06-15-2022 10:15-0500 Body temperature 98 [degF] Elisa Antony Other [facility] Other 06-15-2022 10:15-0500 Body weight 101.61 kg Elisa Antony Other [facility] Other 06-15-2022 10:15-0500 Diastolic blood pressure 90 mm[Hg] Elisa Antony Other [facility] Other 06-15-2022 10:15-0500 Respiratory rate 18 /min Elisa Antony Other [facility] [facility] Other 06-15-2022 10:15-0500 SaO2% (BldA) [Mass fraction] 98 % Elisa Antony Other [facility] [facility] Other 06-15-2022 10:15-0500 Systolic blood pressure 140 mm[Hg] Elisa Antony Other [facility] [employer] Other 05-30-2022 06:42-0500 Body height 166.37 cm MD Elin aPtel Work Phone: [facility] 05-30-2022 06:42-0500 Body weight 104.32 kg MD Elin Patel Work Phone: [facility] 05-07-2022 15:30-0500 Diastolic blood pressure 86 mm[Hg] MD Elin Patel Work Phone: [facility] 05-07-2022 15:30-0500 Heart rate 63 /min MD Elin Patel Work Phone: [facility] 05-07-2022 15:30-0500 Respiratory rate 16 /min MD Elin Patel Work Phone: [facility] 05-07-2022 15:30-0500 SaO2% (BldA) [Mass fraction] 99 % MD Elin Patel Work Phone: [facility] 05-07-2022 15:30-0500 Systolic blood pressure 130 mm[Hg] MD Elin Patel Work Phone: [facility] 05-07-2022 13:19-0500 Body height 166.37 cm MD Elin Patel Work Phone: [facility] 05-07-2022 13:19-0500 Body temperature 98.6 [degF] MD Elin Patel Work Phone: [facility] 05-07-2022 13:19-0500 Body weight 104.32 kg MD Elin Patel Work Phone: [facility] 04-17-2021 10:45-0500 Body height 170.18 cm Elisa Marksmond Other [facility] [facility] Other 04-17-2021 10:45-0500 Body mass index (BMI) [Ratio] 33.67 kg/m2 Elisa Cassia Other [facility] Other 04-17-2021 10:45-0500 Body weight 97.52 kg Elisa Cassia Other [facility] Other 04-17-2021 10:45-0500 SaO2% (BldA) [Mass fraction] 97 % Elisa Marksmond Other [facility] Other 03-06-2021 17:50-0400 Body height 170.18 cm Elisa Cassia Other [facility] Other 03-06-2021 17:50-0400 Body mass index (BMI) [Ratio] 33.67 kg/m2 Elisa Cassia Other [facility] Other 03-06-2021 17:50-0400 Body temperature 97.9 [degF] Elisa Cassia Other [facility] Other 03-06-2021 17:50-0400 Body weight 97.52 kg Elisa Cassia Other [facility] Other 03-06-2021 17:50-0400 Diastolic blood pressure 82 mm[Hg] Elisa Cassia Other [facility] [facility] Other 03-06-2021 17:50-0400 Respiratory rate 18 /min Elisa Cassia Other [facility] [facility] Other 03-06-2021 17:50-0400 SaO2% (BldA) [Mass fraction] 100 % Leisa Cassia Other [facility] [facility] Other 03-06-2021 17:50-0400 Systolic blood pressure 154 mm[Hg] Elisa Cassia Other [facility] [facility] Other 02-14-2021 10:45-0400 Body height 170.18 cm Elisa Cassia Other [facility] [facility] Other 02-14-2021 10:45-0400 Body mass index (BMI) [Ratio] 33.67 kg/m2 Elisa Cassia Other [facility] [facility] Other 02-14-2021 10:45-0400 Body temperature 97.5 [degF] Elisa Cassia Other [facility] [facility] Other 02-14-2021 10:45-0400 Body weight 97.52 kg Elisa Cassia Other [facility] [facility] Other 02-14-2021 10:45-0400 Respiratory rate 18 /min Elisa Cassia Other [facility] [facility] Other 02-14-2021 10:45-0400 SaO2% (BldA) [Mass fraction] 97 % Elisa Cassia Other [employer] Other Encounters Encounter Date Encounter Type Care Provider Facility Start: 08-11-2023 Telephone encounter Terri Sir[facility] Start: 08-06-2023 End: 08-06-2023 ambulatory JERICA WILLETT Not Available Start: 08-01-2023 End: 08-01-2023 ambulatory Sukhdeep Nilsa Facility:[facility] Start: 07-22-2023 End: 07-22-2023 ambulatory SUKHDEEP NILSA Not Available Start: 07-16-2023 Telephone encounter Rachel burkett CNA Work Phone: [facility] Start: 07-04-2023 End: 07-05-2023 ambulatory SUKHDEEP NILSA Not Available Start: 06-26-2023 End: 06-26-2023 ambulatory SUKHDEEP NILSA Not Available Start: 06-26-2023 End: 06-26-2023 Office outpatient visit 15 minutes Sukhdeep Nilsa DO Work Phone: [facility] Comment on above: Cyst of ovary, unspe cified laterality; Pelvic pain in female Start: 06-20-2023 End: 06-24-2023 Clinical Support [facility] 1 [facility] - Sleep Disorders Comment on above: Sleep apnea, unspeci fied type Start: 06-13-2023 End: 06-14-2023 ambulatory SAHIL SANTOYO [facility] Start: 06-13-2023 End: 06-13-2023 Subsequent hospital visit by physician Elin Patel MD Work Phone: [facility] Comment on above: Chronic GERD Start: 06-05-2023 Telephone encounter Elin vickers MD Work Phone: [facility] - Sleep Disorders Comment on above: Sleep Lab ([facility]ST) Start: 06-04-2023 End: 06-04-2023 ambulatory ELIN PATEL Not Available Start: 03-28-2023 End: 03-28-2023 ambulatory Malcolm Iglesias Other [employer] Other Start: 03-28-2023 Telephone encounter Malcolm [facility] Start: 01-06-2023 End: 01-06-2023 ambulatory Elin Patel Facility:[facility] Start: 01-06-2023 End: 01-06-2023 ambulatory MD Elin Patel Work Phone: [facility] Work Phone: Start: 01-06-2023 End: 01-06-2023 Discharged Recurring MD Elin Patel Work Phone: [facility]-Physical Therapy [place] Work Phone: Start: 12-24-2022 End: 12-24-2022 ambulatory Elin Patel Facility:[facility] Start: 12-24-2022 End: 12-24-2022 ambulatory MD Elin Patel Work Phone: [facility] Work Phone: Start: 12-24-2022 End: 12-24-2022 Departed Referred MD Elin Patel Work Phone: [facility]-Employee Benefit Screening Start: 06-21-2022 End: 06-21-2022 ambulatory Malcolm Iglesias Other [employer] Other Start: 06-21-2022 Telephone encounter Malcolm Her[facility] Start: 06-15-2022 End: 06-15-2022 ambulatory Elisa Antony Other [employer] [facility] Other Start: 06-15-2022 Office outpatient visit 25 minutes Elisa Antony [facility] Start: 06-04-2022 End: 06-04-2022 ambulatory MD Elin Patel Work Phone: [facility] Work Phone: Start: 06-04-2022 End: 06-04-2022 Patient encounter procedure MD Elin Patel Work Phone: [facility] Work Phone: Start: 05-30-2022 End: 05-30-2022 ambulatory MD Elin Patel Work Phone: [facility] Work Phone: Start: 05-30-2022 End: 05-30-2022 Patient encounter procedure MD [facility] Work [facility]: Start: 05-28-2022 End: 05-28-2022 ambulatory Ele Friend Other [employer] Other Start: 05-28-2022 Office outpatient visit 5 minutes Ele Friend [facility] Start: 05-15-2022 End: 05-15-2022 ambulatory Malcolm Iglesias Other [employer] Other Start: 05-15-2022 Telephone encounter Malcolm SLOAN [facility] Start: 05-07-2022 End: 05-07-2022 Admission to same day surgery center MD Elin Patel Work Phone: [facility] Start: 05-07-2022 End: 05-07-2022 ambulatory MD Elin Patel Work Phone: [facility] Work Phone: Start: 05-03-2022 End: 05-03-2022 ambulatory Elisa Antony Other [employer] Other Start: 05-03-2022 Nursing evaluation o f patient and report Elisa Antony [facility] Start: 04-23-2022 End: 04-23-2022 ambulatory Malcolm Iglesias Other [employer] Other Start: 04-23-2022 Telephone encounter Malcolm [facility] Start: 03-19-2022 End: 03-19-2022 Patient encounter procedure MD Elin Patel Work Phone: [facility] Start: 01-30-2022 End: 01-30-[address] SUKHDEEP SHAH [facility] [facility] [employer] Other Start: 01-30-2022 Telephone encounter Malcolm Herrera [facility] Start: 01-14-2022 End: 01-14-2022 Departed Referred MD Elin Patel Work Phone: [facility]-Employee Benefit Screening Start: 01-07-2022 End: 01-07-2022 ambulatory Ele Friend Other [employer] Other Start: 01-07-2022 Office outpatient visit 5 minutes Ele Friend [facility] Start: 01-04-2022 End: 01-04-2022 Departed Referred MD Elin Patel Work Phone: [facility]-Employee Benefit Screening Start: 12-30-2021 End: 12-30-2021 ambulatory Elisa Antony Other [employer] Other Start: 12-30-2021 Nursing evaluation o f patient and report Elisa Antony [facility] Start: 07-12-2021 End: 07-12-2021 ambulatory Mariya Finn Other [employer] Other Start: 07-12-2021 Office outpatient visit 5 minutes Mariya Finn [facility] Start: 04-17-2021 End: 04-17-2021 ambulatory Elisa Antony Other [employer] Other Start: 04-17-2021 Office outpatient visit 15 minutes Elisa Antony [facility] Start: 03-06-2021 Office outpatient visit 15 minutes Elisa Cassia [facility] Start: 02-14-2021 (URG) Urgent Care Visit Elisa Antony [facility] Procedures Date Procedure Procedure Detail Performing Clinician Start: 06-13-2023 Comprehensive metabolic panel Sahil gonzalez DOPER OPERATOR - SQL SSRS DEVELOPER Work Phone: Start: 06-04-2022 Mammography Sukhdeep Nilsa Work Phone: Start: 05-30-2022 Esophageal manometry MD Elin Patel Work Phone: Start: 05-07-2022 Esophagogastroduodenoscopy MD Elin ernandez Work Phone: Start: 03-06-2021 Piperacillin/tazobactam Elisa Marksmond Other Start: 01-05-2020 Microscopic observation [Identifier] in Cervix by Cyto stain Sukhdeep Nilsaye [facility] Work Phone: Plan of Treatment Date Care Activity Detail Author Start: 01-04-2025 Screening for malignant neoplasm of cervix [facility] Start: 06-20-2024 Adult BMI Screening Adult BMI Screening [facility] Start: 08-21-2023 End: 08-21-2023 Patient encounter procedure 08/21/2023 10:00 AM EDT Office Visit [facility] [address] [place] [address] Sukhdeep Shah DO [address] [place] [address] [facility] Start: 08-13-2023 End: 08-13-2023 Patient encounter procedure 08/13/2023 1:30 PM EDT Office Visit [facility] [address] [address] Donna Steen, DOPER OPERATOR-SQL SSRS DEVELOPER [address], [address] [place] [address] [facility] Start: 07-04-2023 End: 07-04-2023 Professional / ancillary services management 07/04/2023 11:15 AM EST Ancillary Procedure [facility] [address] [facility] [address] [place] [id number] [facility] Start: 07-02-2023 End: 07-02-2023 Patient encounter procedure 07/02/2023 2:15 PM EST Office Visit [facility] [address] [place] [address] Sahil Santoyo, DOPER OPERATOR - SQL SSRS DEVELOPER [address] [facility] [address] [place] [address] 3 wks/ pancreatic insufficiency [facility] Comment on above: 3 wks/ pancreatic insufficiency Start: 06-20-2023 End: 06-20-2023 Clinical Support 06/20/2023 7:30 PM EST Clinical Support [facility] [address] [place] [id number] [facility] Start: 06-04-2023 Screening for malignant neoplasm of breast Mammogram [facility] Start: 01-24-2023 COVID-19 Vaccine ( season) COVID-19 Vaccine ( season) [facility] Start: 01-24-2023 Influenza vaccination [facility] Start: 01-04-2023 Screening for malignant neoplasm of cervix Pap Smear [facility] Start: 12-24-2022 Influenza vaccination Flu vaccine (#1) [facility] Start: 06-04-2022 MG Breast - bilateral Screening [facility] Start: 06-04-2022 Screening mammography of bilateral breasts MM screening mammo BI w/CAD [facility] Start: 05-30-2022 [facility] Start: 05-07-2022 [facility] Start: 09-12-2019 DTaP,Tdap and Td Vaccines (2 - Td or Tdap) DTaP,Tdap and Td Vaccines (2 - Td or Tdap) [facility] Start: 09-12-2019 DTaP/Tdap/Td vaccine (2 - Td or Tdap) DTaP/Tdap/Td vaccine (2 - Td or Tdap) [facility] Start: 2008 Screening for malignant neoplasm of cervix [facility] Start: 11-04-1999 Screening for malignant neoplasm of cervix Pap Smear [facility] Start: 1996 Adult BMI Follow Up Plan Adult BMI Follow Up Plan [facility] Start: 1996 Adult BMI Screening Adult BMI Screening [facility] Start: 1996 Hepatitis C screening Hepatitis C screen [facility] Start: 1993 HIV screening [facility] Start: 1990 Depression Monitoring Depression Monitoring [facility] Start: 1990 Depression Screening Depression Screening [facility] Start: 1990 Tobacco Screening Tobacco Screening [facility] Sys [facility] Start: 1988 Lipid panel [facility]ids [facility] Start: 1978 Hepatitis B vaccine (1 of 3 - 3-dose series) Hepatitis B vaccine (1 of 3 - 3-dose series) [facility] [employer] US for US PELVIS-TRANS VAG IF INDICATED Imaging Routine Cyst of ovary, unspecified laterality Pelvic pain in female Ordered: 06/26/2023 [facility] Work Phone: Comment on above: Ordered: 06/26/2023 Immunizations Immunization Date Immunization Notes Care Provider Fa cility 05-23-2021 influenza, injectabl e, quadrivalent, preservative free Sukhdeep Nilsa DO Work Phone: [facility] 05-23-2021 influenza virus vaccine, unspecified formulation Elin Patel MD Work Phone: [facility] 02-13-2021 influenza, injectabl e, quadrivalent, preservative free Sukhdeep Nilsa DO Work Phone: [facility] 09-20-2020 COVID-19 Shekhar Guaman (Pfizer) MD Elin Patel Work Phone: [facility] 08-23-2020 COVID-19 Shekhar Guaman (Pfizer) MD Elin Patel Work Phone: [facility] 02-08-2020 influenza, injectabl e, quadrivalent, preservative free Sukhdeep Nilsa DO Work Phone: [facility] 09-11-2009 tetanus toxoid, redu pearl diphtheria toxoid, and acellular pertussis vaccine, adsorbed Sukhdeep Nilsa DO Work Phone: [facility] Healthcare Payers Date Payer Category Payer Self-pay [id number] 2022 Unknown [id number]. [id number] 1980 Unknown [id number] 2.16.84 0.1.636402.3.579.2.593 1980 Unknown [id number] 2.16.8 40.1.919233.3.579.2.174 1980 Unknown [id number] 2.16.8 40.1.674332.3.579.2.1286 1978 Unknown [id number] 2.16.84 0.1.810910.3.579.2.1259 1978 Unknown [id number] 2.16.84 0.1.014161.3.579.2.1259 1978 Unknown [id number] 2.16.84 0.1.930418.3.579.2.1259 1978 Unknown [id number] 2.16.84 0.1.693926.3.579.2.1259 1978 Unknown [id number] 2.16.84 0.1.382362.3.579.2.1259 1959 Unknown [id number] 2. 16.840.1.951203.19 Unknown [id number] 2.16.8 40.1.245992.3.579.2.531 Unknown [id number] 2.16.8 40.1.194001.3.579.2.531 Unknown [id number] 2.16.8 40.1.404445.3.579.2.531 Social History Date Type Detail Facility Start: 11-04-2018 End: 06-04-2023 Sex Assigned At [facility] Other Start: 1980 Sex Assigned At Female [facility] Start: 05-07-2022 End: 11-13-2022 Tobacco smoking status OKIS Never smoked tobacco (finding) [facility] Tobacco smoking stat us [facility] Tobacco smoking consumption unknown [facility] Start: 11-04-2018 End: 06-04-20[address] of [address] [facility] Housing Instability Unknown [facility] Start: 1980 Sex Assigned At Not on file [facility] Start: 11-13-2022 End: 06-13-2023 Tobacco use and exposure Smokeless tobacco non-user [facility] Start: 06-26-2023 Alcohol intake Lifetime non-drinker (finding) [facility] Start: 11-11-2022 Alcohol Comment Caffine intake: 1 cup a day [facility] Goals Date Patient Goal Desired Activity /State Clinical Notes 02-14-2021 to 08-11-2023 Telephone Encounter - Terri Beverly - 08/11/2023 9:30 AM EDTTelephone Encounter - Terri Beverly - 08/11/2023 9:30 AM EDTTelephone Encounter - Rachel Kingsley CNA - 07/16/2023 12:37 PM EST Note Date & Type Note Facility 08-11-2023 Miscellaneous Notes Formattin g of this note might be different from the original. PT is in need of a 30 min spot not a 15 min spot / PT was scheduled for a Video Visit with SAURAV documented in this encounter [facility] 08-11-2023 Telephone encount er Note PT is in need of a 30 min spot not a 15 min spot / PT was scheduled for a Video Visit with SAURAV [facility] 07-16-2023 Miscellaneous Notes Formattin g of this note might be different from the original. Left voicemail to change to video visit with SAURAV on 08/13. Sent letter documented in this encounter [facility] 07-16-2023 Telephone encount er Note Left voicemail to change to video visit with SAURAV on 08/13. Sent letter [facility] 06-26-2023 History of Presen t illness Narrative [...] 11/12/2022 Difficulty walking 11/12/2022 Dysphagia 11/12/2022 Hypercholesteremia (CMS/HCC) 11/12/2022 Hypertension (CMS/HCC) 11/12/2022 Obesity 11/12/2022 Seasonal allergic rhinitis 11/12/2022 Unrefreshed by sleep 11/12/2022 Pancreatic insufficiency (CMS/HCC) 01/20/2023 Resolved Ambulatory Problems Diagnosis Date Noted [...] nursing note reviewed. Exam conducted with a disc recordist present. Vitals: Estimated body mass index is [...] Sukhdeep Shah DO documented in this encounter [facility] 06-05-2023 Miscellaneous Notes Formattin g of this note might be different from the original. 06/05 Received 06/04 order Called pt to schedule [facility] sched at [facility] on 06/20 Confirmation emailed Chatted [facility] Routed Dr. Tee for approval [facility] order and 06/04 Meinke notes in MM Ok for HST. Ordered as referral. AUTH STARTED HST/NPR MMO primary documented in this encounter [facility] [employer] 06-05-2023 Telephone encount er Note 06/05 Received 06/04 order Called pt to schedule HST sched at [facility] on 06/20 Confirmation emailed Chatted [facility] Routed Dr. Tee for approval [facility] H[facility] order and 06/04 Meinke notes in MM [employer] 06-05-2023 Telephone encount er Note Ok for HST. Ordered as referral. [facility] Work Phone: 06-05-2023 Telephone encount er Note AUTH STARTED HST/NPR MMO primary [facility] [employer] 06-21-2022 Evaluation note Encounter Date Diagnosis Assessment Notes May, GERD (gastroesop hageal reflux disease) (ICD-10 - K21.9) [facility] Other 01-21-2023 Evaluation note* Encounter Date Diagnosis [...] fevers. May, Hematuria, unspecified (ICD-10 - R31.9) [facility] Other 01-03-2023 Evaluation note* Encounter Date Diagnosis Assessment Notes Treatment Notes Treatment Clinical Notes May, Contact with and (suspected) exposure to covid-19 (ICD-10 - Z20.822) [facility] Other 12-21-2022 Evaluation note* Encounter Date Diagnosis Assessment Notes Treatment Notes Treatment Clinical Notes Apr, Dysphagia (ICD-10 - R13.10) [facility] Other 12-13-2022 Procedure [facility]12-09-2022 Evaluation note* Encounter Date Diagnosis Assessment Notes Treatment Notes Treatment Clinical Notes Apr, Contact with and (suspected) exposure to other viral communicable diseases (ICD-10 - Z20.828) [facility] Other 11-29-2022 Evaluation note* Encounter Date Diagnosis Assessment Notes Treatment Notes Treatment Clinical Notes Mar, Difficulty in swallowing (ICD-10 - R13.10) [facility] Other 09-07-2022 Evaluation note* Encounter Date Diagnosis Assessment Notes Treatment Notes Treatment Clinical Notes Jan, GERD (gastroesophageal reflux disease) (ICD-10 - K21.9) [facility] Other 08-15-2022 Evaluation note* Encounter Date Diagnosis Assessment Notes Treatment Notes Treatment Clinical Notes Dec, Contact with and (suspected) exposure to other viral communicable diseases (ICD-10 - Z20.828) [facility] Other 08-07-2022 Evaluation note* Encounter Date Diagnosis Assessment Notes Treatment Notes Treatment Clinical Notes Dec, Exposure to COVID-19 virus (ICD-10 - Z20.822) [facility] Other 02-17-2022 Evaluation note* Encounter Date Diagnosis [...] Patient care instructions given in writting by [facility] document. [facility] Other 11-23-2021 Evaluation note* Encounter Date Diagnosis Assessment Notes Treatment Notes Treatment Clinical Notes Mar, Contact with and (suspected) exposure to other viral communicable diseases (ICD-10 - Z20.828) Drink plenty fluids, get plenty of rest. Notify [facility] of your family members positive Covid result. Mar, Other Additional time spent conducting pre-visit phone call, screening for symptoms, instructions on social distancing, application and removal of PPE, and cleaning of examination room, equipment and supplies was preformed. Patient education given for testing methodology and results. Patient care instructions given in writting by [facility] document. [facility] Other 10-12-2021 Evaluation note* Encounter Date Diagnosis Assessment Notes Treatment Notes Treatment Clinical Notes Feb, Dysuria (ICD-10 - R30.0) Feb, Acute cystitis with hematuria (ICD-10 - N30.01) Drink plenty fluids, get plenty of rest. Take the Macrobid as prescribed until gone. Take the Pyridium as prescribed until gone. Follow-up with your family physician if no improvement in 2 to 3 days [facility] Other 09-22-2021 Evaluation note* Encounter Date Diagnosis [...] Patient care instructions given in writting by [facility] document. Additional time spent conducting pre-visit phone call, screening for symptoms, instructions on social distancing, application and removal of PPE, and cleaning of examination room, equipment and supplies was preformed. Patient education given for testing methodology and results. Patient care instructions given in writting by [facility] document. [facility] Other Evaluation noteNo assessment information available [facility] Work Phone: Evaluation noteNo InformationNortSaint John Vianney Hospital [employer] Other Evaluation note* Diagnosis Chronic GERD [facility] Diagnosis Sleep apnea, unspecified type documented [facility] System[facility]* Diagnosis Cyst of ovary, unspecified laterality Pelvic pain in female Unspecified symptom associated with female genital organs documented [facility] Author Malcolm Iglesias [facility] May 07, 2022 2:49pm Note Date/Time May 07, 2022 2:49pm [facility] [address] [place] [address] Gastroenterology H&P Signed Patient: Kathy Freeman MR#: [id number] : 1980 Acct:[id number] Age/Sex: 41 / F Adm Date: 2 Loc: Room: Type: [facility] Attending Dr: Malcolm Iglesias MD Copies to: [...] MD Documented By: Malcolm Iglesias MD 05/07/22 1441 Signed By: <Electronically signed by Malcolm Iglesias MD> 05/07/22 5214 [facility] Work Phone: Hiszclq general Narrative - Reported* Type Description Date Medical History GERD Medical History depression Surgical History D&C 2001 Surgical History Partial Hysterectomy Hospitalization History Child x2 Hospitalization History Hysterectomy [facility] Other History general Narrative - Reported* Type Description Date Medical History GERD Medical History depression Medical History Hypertension Surgical History D&C 2001 Surgical History Partial Hysterectomy Hospitalization History Child x2 Hospitalization History Hysterectomy [facility] Other Hospital Discharge instructions Additional Instructions DISCHARGE [...] NOT operate machinery such as power tools, Grade[employer] mowers, snow blowers, sewing machines, etc. for [...] Follow up with PCP. - Office number [phone].[facility] Work Phone: InstructionsNot on filedocumented in this encounter [facility]agerPanda SystemInstructionsNot on filedocumented in this encounter [facility]agerPanda SystemReason for visit [facility] EM[facility]OYEE, COVID TEST FOR PROC[facility]URENocox[facility] [employer] Other Chief Complaint and Reason for Visit [...] Date/ Time Advance Directives No November 25 9:57am Summary Purpose Additional Source Comments REASON FOR VISIT (unrecogniz ed section and content) Reason Onset Date Comments Sleep Lab 06/05/2023 HST Specialty Diagnoses / Procedures Referred By Contac t Referred To Contact Diagnoses Sleep apnea, unspecified type Procedures Home sleep study Elin Patel MD [facility] [place] [address] [address] Phone: [phone] Referral ID Status Reason Start Date Expiration Date Visits Re quested Visits Authorized [id number] Closed 06/05/2023 06/04/2024 1 1 Reason Comments Eval for ovarian cyst Care Teams (unrecognized sec tion and content) Team Status: Inactive Member Role Status Dates Elin Patel MD Primary Care Provider Active Surinder Del Castillo DO [facility] Attending Provider Active Team Status: Active Member Role Status Dates Elin Patel MD Primary Care Provider Active Team Status: Inactive Member Role Status Dates Elin Patel MD Primary Care Provider Active Malcolm Iglesias MD Attending Provider Active Team Status: Inactive Member Role Status Dates Elin Patel MD Primary Care Provider Active SHREYA Cortes Attending Provider Active Team Status: Inactive Member Role Status Dates Elin Patel MD Primary Care Provider Active Maxx Cornelius MD Attending Provider Active Team Status: Inactive Member Role Status Dates Elin Patel MD Primary Care Provider Active Referral [facility] Attending Provider Active Team Status: Inactive Member Role Status Dates Elin Patel MD Primary Care Provider, Attending Garht ruiz Active Document Specialist Relationship Specialty [place] [address] [place] [address] PCP - General Family Medicine 06/13/23 Document Specialist Relationship Specialty [place] [address] [place] [address] PCP - General Family Medicine 06/18/23 Document Specialist Relationship Specialty Start Date End Date Elin Patel MD [address] [place] [address] PCP - General Family Medicine 11/11/22 Document Specialist Relationship Specialty [place] [address] [place] [address] PCP - General Family Medicine 06/18/23 Goals (unrecognized section and content) Goals may be documented in a n alternate section INFORMATION SOURCE (unrecogn ized section and content) DATE CREATED AUTHOR 02/06/2022 [facility] DATE CREATED AUTHOR AUTHOR'S ORGANIZ ATION 06/14/2023 [facility] DATE CREATED AUTHOR AUTHOR'S ORGANIZ ATION 06/27/2023 [facility] DATE CREATED AUTHOR AUTHOR'S ORGANIZ ATION 08/05/2023 [facility] DATE CREATED AUTHOR AUTHOR'S ORGANIZ ATION 08/07/2023 [facility] dical Specialists EPIC FOR RECORDS PERTAINING TO PATIENTS WHO ARE [...] BE BASED ON THE PRIMARY CLINICAL RECORDS. [employer] [facility]. provides no warranty or guarantee of the accuracy or completeness of information in this document.
[2023-08-28 16:09] LABS: Age Gdln ACOG Testing Note (.); HPV Aptima Negative (Negative); IGP, Aptima HPV, rfx 16/18,45 Note (.)
== END 2023-08-21 19:14 | disposition home or self-care (01) ==
LOC: LAB 19:13
PROVIDERS: PCP Family Medicine; Visit Provider Obstetrics & Gynecology
DX: Z01.419 Encounter for gynecological examination (general) (routine) without abnormal findings (principal)
CPT/HCPCS: 87624; G0145

== ENCOUNTER 2024-08-26 12:19 | Outpatient (REF) | payer OTHER, SELFPAY | END 2024-08-26 12:20 | disposition home or self-care (01) | LOC: LAB 12:19 | PROVIDERS: PCP Family Medicine; Visit Provider Obstetrics & Gynecology | DX: Z01.419 Encounter for gynecological examination (general) (routine) without abnormal findings (principal) | CPT/HCPCS: 87624; 88175 ==

== ENCOUNTER 2025-03-31 07:52 | Outpatient (OUT) | payer OTHER, SELFPAY ==
--- OUTSIDE RECORDS SUMMARY | 2024-07-30 06:00 | XMS_ITS ---
Author Organization [facility] in [place] Address [address] [place] [address] Care Team Providers Care Coke Burner Name Role Phone Agapito Patel MD Primary Care Provider Unavailab le Provider, Lab Unavailable [phone] REASON FOR VISIT JM Encounters Encounter Location Date Provider Diagnosis [facility] [address] [place] [address] 07/30/2024 Lab Provider Plan Of Treatment Next Appt Details Provider Name:Sandy Salguero Miguel, 02/03/2026 09:00:00 AM, [address], [address], [address], Progress Notes * Daniel FREEMANsobeidaDOB:1980 ( 44 yo F)Acc No.[id number]:07/30/2024 UNLOCKED PROGRESS NOTE Progress Note Patient: Kathy SUAZO :?Lab ProviderDOB:1980???Age:43 Y???Sex: FemaleDate:07/30/2024Phone:[phone]:[facility] [place], [place]Yth:Soco Callaway In:11:00 AM ESTCheck Out:11:11 AM EST Subjective: * Chief Complaints: * 1 . JM. * Medical History: Objective: * Vitals: Assessment: Plan: * Treatment: * * Electronic signature of Lab Provider on 03/31/2025 at 07:55 AM ESTSign off status: PendingVisit Status:?CHK (Check Out) * Provider: Sebastian amador Provider Date: 0 07/30/2024 Generated for Printing/Faxing/eTransmitting on:?03/31/2025 07:55 AM EST
--- OUTSIDE RECORDS SUMMARY | 2024-09-20 08:50 | XMS_ITS ---
Author Organization [facility] in [place] Address [address] [place] [address] Care Team Providers Care Dramatic Art Teacher Name Role Phone Agapito Patel MD Primary Care Provider Unavailab le Provider, Lab Unavailable [phone] REASON FOR VISIT LBC Encounters Encounter Location Date Provider Diagnosis [facility] [address] [place] [address] 09/20/2024 Lab Provider Plan Of Treatment Next Appt Details Provider Name:Sandy Salguero Miguel, 02/03/2026 09:00:00 AM, [address], [address], [address], Progress Notes * JUVENTINOLillian KathyDOB:1980 ( 44 yo F)Acc No.[id number]:09/20/2024 UNLOCKED PROGRESS NOTE Progress Note Patient: Kathy SUAZO :?Lab ProviderDOB:1980???Age:43 Y???Sex: FemaleDate:09/20/2024Phone:[phone]:[facility] [place], [id number]:Soco Callaway In:01:50 PM ESTCheck Out:01:57 PM EST Subjective: * Chief Complaints: * 1 . LBC. * Medical History: Objective: * Vitals: Assessment: Plan: * Treatment: * * Electronic signature of Lab Provider on 03/31/2025 at 07:54 AM ESTSign off status: PendingVisit Status:?CHK (Check Out) * Provider: Sebastian amador Provider Date: 0 09/20/2024 Generated for Printing/Faxing/eTransmitting on:?03/31/2025 07:54 AM EST
--- OUTSIDE RECORDS SUMMARY | 2025-03-18 05:34 | XMS_ITS ---
Author Organization The [facility] in [place] Address [address] [place] [address] Care Team Providers Care Debt And Budget Counselor Name Role Phone Agapito Patel MD Primary Care Provider Unavailab le Kusum Ramirez Unavailable [phone] Reason For Referral Reason Evaluate and Treat Please call patient to set up appointement Diagnosis 1 Degenerative disc di sease, cervical (M50.30) Diagnosis 2 Unspecified osteoart hritis, unspecified site (M19.90) Referral Organization Rheumatology [facility] Referring Provider First Name Kusum Referring Provider Last Name James Referring Provider Speciality Rheumatolo gy Referred Provider undefined Referred Provider Specialty Pain Medicin e General Notes Munira Thrasher 03/21/2025 08:56:20 AM >Kusum Ramirez 03/18/2025 11:35:45 AM >will you please place referral to [facility] for OA/cspine DDD and let Kathy know when referral is placed. Thanks Clinical Notes Munira Thrasher 03/21/2025 08:56:26 AM >Kusum Ramirez 03/18/2025 11:35:45 AM >will you please place referral to [facility] for OA/cspine DDD and let Kathy know when referral is placed. Thanks Referral Priority Routine REASON FOR VISIT Referral to pain management Encounters Encounter Location Date Provider Diagnosis [facility] [address] [place] [address] 03/18/2025 Kusum Ramirez Plan Of Treatment Referrals Referral Date Details 03/21/2025 03/21/2025, Evaluate and Treat Please call patient to set up appointement Next Appt Details Provider Name:Sandy Rivera, 02/03/2026 09:00:00 AM, [address], [place] [address], [place], [address], Progress Notes * Kathy FREEMANDOB:1980 ( 44 yo F)Acc No.[id number]:03/18/2025 Patient:?Kathy FREEMAN :1980???Age:44 Y???Sex:FemalePhone:[phone] Address:[address] [place] [address], [address] Subjective: * Chief Complaints: * R eferral to pain management * Medical History: * Surgical History: * Hospitalization/Major Diagno stic Procedure: * Medications: Objective: * Vitals: * Physical Examination: ??? Assessment: Plan: * Treatment: ? Referral To:undefined??Pain Medicine ?Reason:Evaluateand Treat Please call patient to set up appointement * Procedure Codes: * true * Date:?Generated for Printing/Faxing/eTransmitting on:?03/31/2025 07:54 AM EST Consultation Request Notes Referral Date Referring Provider Referred Provider Not es 03/21/2025 Kusum Ramirez , undefined Evaluate an d Treat Please call patient to set up appointement
--- OUTSIDE RECORDS SUMMARY | 2025-03-31 07:54 | XMS_ITS | Clinical Summary ---
Author Organization [facility] Address [address] [facility], [address] [place] [address] Care Team Providers Care Epic Cupid Analyst Name Role Phone Agapito Patel MD Primary Care Provider [phone] Allergies Active AllergyReactionsCriticalityNoted DateCommentsWound Dressing Adhesive 11/12/2022 Other Reaction(s): rash, skin tears Medications MedicationSigDispense QuantityRefillsLast FilledStart DateEnd DateStatus aspirin 81 MG EC tablet Take 1 tablet by mouth dailyActive Cholecalciferol 50 MCG (1999) TABS every 24 hoursActive estradiol (ESTRACE) 0.5 MG tablet Indications:Patient is taking 1 mgTake 2 tablets by mouth daily Indications: Patient is taking 1 mgActive FLUoxetine (PROZAC) 40 MG capsule Take 1 capsule by mouth daily04/22/2023ctive metoprolol succinate (TOPROL XL) 25 MG extended release tablet Take 1 tablet by mouth daily02/25/2023ctive rosuvastatin (CRESTOR) 5 MG tablet Take 1 tablet by mouth daily05/14/2023ctive pantoprazole (PROTONIX) 40 MG tablet Indications:Chronic GERDTAKE 1 TABLET TWICE A DAY 60 tablet ctive predniSONE (DELTASONE) 10 MG tablet 09/11/2023ctive acetaminophen (TYLENOL) 500 MG tablet Take 2 tablets by mouth every 6 hours as needed for PainActive rifAXIMin (XIFAXAN) 550 MG tablet Take 1 tablet by mouth 3 times daily 42 tablet 03/19/2024ctive famotidine (PEPCID) 20 MG tablet Indications:Chronic GERDTake 1 tablet by mouth 2 times daily 60 tablet ctive famotidine (PEPCID) 20 MG tablet Indications:Chronic GERDTake 1 tablet by mouth nightly 30 tablet ctive cholestyramine (QUESTRAN) 4 g packet Take 1 packet by mouth daily 30 packet tive Active Problems ProblemNoted DateDiagnosed DateEsophageal vonhlrjqb27/20/2024ancreatic jdqojmiuvvatw30/28/5842Tplwvkxag12/20/3938Wilenwecgibydsuckk61/20/2023 Qtllnxgdpljp77/20/0320Pbxcjuq91/20/2023Seasonal allergic givbphfu61/20/2023 Unrefreshed by sleep11/12/2022ifficulty bfsccnn5211/12/20227846Xfwgmaetdc76/20/2023 Social History Tobacco UseTypesPacks/DayYears UsedDateSmoking Tobacco: NeverSmokeless Tobacco: Never Tobacco Cessation:Counseling Given: Not Answered Alcohol UseStandard Drinks/WeekCommentsNot Asked0 (1 standard drink = 0.6 oz pure alcohol)rarelyInterpersonal Safety Domain Source: IP Abuse ScreeningAnswer Date RecordedPhysical alorpGfhghn75/15/2024Verbal xrgroWskqhl29/15/2024Emotional cxdygWqtkmc39/15/2024Financial itxshMzublz96/15/2024Sexual mnzxfLzykot47/15/2024 CommentsNoSex and Gender InformationValueDate RecordedSex Assigned at DxmchYhvreo96/07/2024 2:10 PM ESTLegal GxuFjfgpx77/10/2013 4:11 PM ESTGender DesgdzewEhdxmq79/07/2024 2:10 PM ESTSexual XmvyfiiygzzStascemc30/07/2024 2:10 PM EST Last Filed Vital Signs Vital SignReadingTime TakenCommentsBlood Bcjyddxi536/9805/14/2024 10:00 AM EST Xmwac385405/14/2024 10:00 AM ZCXWybibewroaf86.1 ??C (96.9 ??F)10/08/2023 2:09 PM EDTRespiratory Vzom150401/01/2024 3:31 PM EDTOxygen Glzdgtujdu46%01/01/2024 3:31 PM EDTInhaled Oxygen Concentration--Syfvoj00.8 kg (220 lb)05/14/2024 10:00 AM WUOJngxad891.4 cm (5' 5.5 )05/14/2024 10:00 AM ESTBody Mass Index36.0505/14/2024 10:00 AM EST Plan of Treatment Health MaintenanceDue DateLast DoneCommentsFIT/FOBT: Average risk1978 Fecal-DNA (Cologuard): Average risk1978Sigmoidoscopy/CT colonography 1978 2696Ocnefs93/11/1989Depression Wwyucxjhhk94/11/1991HIV vlkkzu0111/03/1993 Hepatitis C itdvql0911/03/1996Hepatitis B vaccine (1 of 3 - 19+ 3-dose series) 1997Diabetes pcvmdh6611/03/2013Flu vaccine (#1)/, 02/13/2021, 02/08/2020COVID-19 Vaccine ( season)504/, 1Breast cancer /07/2023, 06/04/2022, 03/02/2021, Additional history hjnwcoQymrbycozmt44/15/203405/, 4Colorectal Cancer Fzcrvc964DTaP/Tdap/Td vaccine (3 - Td or Tdap)11/28/2033 11/29/2023, 09/11/2009HPV vaccine (No Doses Required)CompletedHepatitis A vaccineAged OutNo longer eligible based on patient's age to complete this topic Hib vaccineAged OutNo longer eligible based on patient's age to complete this topicMeningococcal (ACWY) vaccineAged OutNo longer eligible based on patient's age to complete this topicMeningococcal B vaccineAged OutNo longer eligible based on patient's age to complete this topicPneumococcal 0-49 years VaccineAged OutNo longer eligible based on patient's age to complete this topicPolio vaccine Aged OutNo longer eligible based on patient's age to complete this topic Medical Devices ImplantedTypeAreaManufacturerDevice IdentifierShelf Expiration DateModel / Serial / LotClip Int L235cm Wrk Chn Dia2.8mm Opn 11mm Braid Cath Rot Bx/10 - [id number] Implanted:Qty: 1 on 10/08/20[facility]-WD05/14/[id number] / / [id number] Hemo L235cm Wrk Chn Thelma Opn 17mm Braid Cath Rot - [id number] Implanted:Qty: 2 on 10/08/2023 [facility]-04/11/[id number] / / [id number] Procedures Procedure NamePriorityDate/TimeAssociated DiagnosisCommentsCOLONOSCOPY PROCEDURE Ucorkon2410/08/2023 12:25 PM EDT from Last 3 Months or Most Recently Relevant to Health Maintenance Results * Colonoscopy (10/08/2023 12:25 PM EDT)Specimen (Source)Anatomical Location / LateralityCollection Method / VolumeCollection TimeReceived Time Narrative Rubén, User - 10/08/2023 12:25 PM EDT No dictation Authorizing ProviderResult TypeResult StatusVijurgen Pa MDENDOSCOPY ORDERABLESFinal Result from Last 3 Months or Most Recently Relevant to Health Maintenance Insurance Care Teams Team MemberRelationshipSpecialtyStart [place] [address] [place] [address] [facility]
--- OUTSIDE RECORDS SUMMARY | 2025-03-31 07:54 | XMS_ITS | Encounter Summary ---
Author Organization [facility] Healthcare Address [address] [place] [address] Care Team Providers Care Yarn Mercerizer Operator Helper Name Role Phone Agapito Patel MD Unavailable [phone] Agapito Patel MD Primary Care Provider [phone] Reason for Visit * ReasonCommentsNew Med Request Encounter Details DateTypeDepartmentCare Team (Latest Contact Info)Dcdfcuuhmnp36/27/2025Refill [facility] [address] [place] [address] [place] [address] [address] [facility] [address] [place] [address] [id number] Primary hypertension Social History Tobacco UseTypesPacks/DayYears UsedDateSmoking Tobacco: NeverSmokeless Tobacco: NeverAlcohol UseStandard Drinks/WeekCommentsNever0 (1 standard drink = 0.6 oz pure alcohol)Caffine intake: 1 cup a [id number] Health LiteracyAnswerDate Recorded How often do you need to have someone help you when you read instructions, pamphlets, or other written material from your doctor or pharmacy?Never 02/16/2025Humiliation, Afraid, Rape, and Kick questionnaireAnswerDate Recorded Within the last year, have you been afraid of your partner or ex-partner?No 02/16/2025Within the last year, have you been humiliated or emotionally abused in other ways by your partner or ex-partner?No02/16/2025Within the last year, have you been kicked, hit, slapped, or otherwise physically hurt by your partner or ex-partner?No02/16/2025Within the last year, have you been raped or forced to have any kind of sexual activity by your partner or ex-partner?No02/16/2025 Social Connection and Isolation PanelAnswerDate RecordedIn a typical week, how many times do you talk on the phone with family, friends, or neighbors?Once a week02/16/2025How often do you get together with friends or relatives?Once a week02/16/2025How often do you attend quaker or jehovah's witness services?More than 4 times per year02/16/2025Do you belong to any clubs or organizations such as quaker groups, unions, fraA[employer] or athletic groups, or school groups?Yes 02/16/2025How often do you attend meetings of the clubs or organizations you belong to?More than 4 times per year02/16/2025re you , , , , never , or living with a partner?Rcaxynz7802/16/2025 AUDIT-CAnswerDate RecordedQ1: How often do you have a drink containing alcohol? Never02/16/2025Q2: How many drinks containing alcohol do you have on a typical day when you are drinking?Patient does not drink02/16/2025Q3: How often do you have six or more drinks on one occasion?Never02/16/2025Overall Financial Resource Strain (CARDIA)AnswerDate RecordedHow hard is it for you to pay for the very basics like food, housing, medical care, and heating?Not very hard 02/16/2025PHQ-2AnswerDate RecordedPatient Health Questionnaire-2 Score0 02/16/2025[facility] [place] [facility] - Occupational Stress QuestionnaireAnswerDate RecordedDo you feel stress - tense, restless, nervous, or anxious, or unable to sleep at night because yourmind is troubled all the time - these days?To some amqrvt2802/16/2025Exercise Vital SignAnswerDate Recorded On average, how many days per week do you engage in moderate to strenuous exercise (like a brisk walk)?1 day02/16/2025On average, how many minutes do you engage in exercise at this level?20 min02/16/2025Hunger Vital SignAnswerDate RecordedWithin the past 12 months, you worried that your food would run out before you got the money to buymore.Never true02/16/2025Within the past 12 months, the food you bought just didn't last and you didn't have money to get more.Never true02/16/2025PRAPARE - TransportationAnswerDate RecordedIn the past 12 months, has lack of transportation kept you from medical appointments or from getting medications?No02/16/2025In the past 12 months, has lack of transportation kept you from meetings, work, or from getting things needed for daily living?No02/16/2025Housing Stability Vital SignAnswerDate RecordedIn the last 12 months, was there a time when you were not able to pay the mortgage or rent on time?No02/16/2025In the past 12 months, how many times have you moved where you were living?t any time in the past 12 months, were you homeless or living in a alf (including now)?No02/16/2025CommentsNo Sex and Gender InformationValueDate RecordedSex Assigned at BirthNot on file Legal IiuLgawgt00/15/2023 8:10 PM EDTGender IdentityNot on fileSexual OrientationNot on filedocumented as of this encounter Plan of Treatment Not on file documented as of this encounter Visit Diagnoses Diagnosis Primary hypertension Unspecified essential hypertension documented in this encounter Care Teams Team MemberRelationshipSpecialtyStart [place] [address] [place] [address] PCP - Medical [place] [employer]02/04/2312 [place] [address] [place] [address] PCP - GeneralFamily Mlctutmu25/13/24documented as of this encounter
--- OUTSIDE RECORDS SUMMARY | 2025-03-31 07:54 | XMS_ITS | Clinical Summary ---
Author Organization [facility] Healthcare Address [address] [place] [address] Care Team Providers Care Painting Contractor Name Role Phone Agapito Patel MD Unavailable [phone] Agapito Patel MD Primary Care Provider [phone] Allergies Active AllergyReactionsCriticalityNoted DateCommentsWound Dressing Adhesive 11/12/2022 Other Reaction(s): rash, skin tears Tape Medications MedicationSigDispense QuantityRefillsLast FilledStart DateEnd DateStatus cholecalciferol (Vitamin D-3) 50 MCG (1999) tablet 1 (one) time each day at the same time.Active pantoprazole (ProtoNix) 40 MG EC tablet Take 40 mg by mouth every 12 (twelve) hours.Active famotidine (Pepcid) 20 MG tablet 07/12/2023ctive metoprolol succinate XL (Toprol-XL) 25 MG 24 hr tablet Indications:Hypertension, unspecified typeTAKE 1 TABLET IN THE MORNING 90 tablet 4Active cholestyramine (Questran) 4 g packet Take 4 g by mouth04/07/2024ctive acetaminophen (Tylenol) 500 MG tablet Take 2 tablets by mouth every 6 (six) hours if neededActive estradiol (Estrace) 1 MG tablet Indications:Surgical menopauseTAKE 1 TABLET DAILY 90 tablet 5Active rosuvastatin (Crestor) 5 MG tablet Indications:Medication refillTAKE 1 TABLET IN THE MORNING 90 tablet 5Active FLUoxetine (PROzac) 40 MG capsule Indications:Medication refillTAKE 1 CAPSULE IN THE MORNING 90 capsule 5Active lisinopril 10 MG tablet Indications:Primary hypertensionTake 1 tablet (10 mg) by mouth Daily 30 tablet 503/ctive losartan (Cozaar) 25 MG tablet Indications:Primary hypertensionTake 1 tablet (25 mg) by mouth Daily 90 tablet ctive losartan (Cozaar) 25 MG tablet Indications:Primary hypertensionTake 1 tablet (25 mg) by mouth Daily 30 tablet Discontinued Active Problems ProblemNoted DateDiagnosed DateGERD (gastroesophageal reflux disease)05/07/2024 Pancreatic wsfkkzydvnqcn75/28/4356Qvgbsvhppx01/20/2023ifficulty walking 11/12/20220386Bvuwnaczh41/20/9939Eccbjkpmjymjjdhats84/20/0379Mlnbkfnwetzh04/20/2023 Wpujtqk5111/12/2022Seasonal allergic iiggwehi71/20/2023Unrefreshed by sleep 11/12/2022 Resolved Problems ProblemNoted DateDiagnosed DateResolved DateIrritable bowel/ Muscle ucovld70Obstructive sleep apnea /20/2023 01/20/2023 Encounters DateTypeDepartmentCare GkpfDahxhiujqzw77/27/2025Refill [facility] [address] [place] [address] Anamika Reynolds NP Primary ouhyxkbcvvdv64/07/2025Orders Only [facility] [address] [place] [address] Katelin Simpson MA Primary kcmtrmahmmvw96/07/2025Orders Only [facility] [address] [place] [address] Anamika Reynolds NP 02/24/2025Telephone [facility] [address] [place] [address] Kelin Figueroa MA 02/16/2025 11:30 AM EDTOffice Visit [facility] [address] [place] [address] Anamika Reynolds NP Primary hypertension (Primary Dx)02/16/20250483Xxnjmh23/24/2025Telephone [facility] [address] [facility] [place] [phone] Agapito aPtel MD from Last 3 Months Immunizations ImmunizationAdministration DatesNext DueInfluenza, injectable, quadrivalent, preservative free05/23/2021,02/13/2021,02/08/2020Tdap11/29/2023,09/11/2009 Family History Medical HistoryRelationNameCommentsCancerMaternal GrandfatherDenver FranksLung cancerMaternal GrandfatherDenver FranksBowel RuptureMaternal Grandmother Irritable bowel syndromeMaternal GrandmotherBreast cancerMotherVicky Overmyer CancerMotherVicky OvermyerIrritable bowel syndromePaternal GrandfatherCancer Paternal GrandmotherJean OvermyerMelanomaPaternal GrandmotherJean Overmyer RelationNameStatusCommentsFatherAliveMaternal GrandfatherDenver FranksDeceased Maternal GrandmotherDeceasedMotherVicky OvermyerDeceasedPaternal Grandfather DeceasedPaternal GrandmotherJean OvermyerDeceased Social History Tobacco UseTypesPacks/DayYears UsedDateSmoking Tobacco: NeverSmokeless Tobacco: Never Tobacco Cessation:Counseling Given: Not Answered Alcohol UseStandard Drinks/WeekCommentsNever0 (1 standard drink = 0.6 oz pure alcohol)Caffine intake: 1 cup a [id number] Health LiteracyAnswerDate RecordedHow often do you need to have someone [...] relatives?Once a week02/16/2025How often do you attend amish or church services?More than 4 times per year02/16/2025Do you belong to any clubs or organizations such as amish groups, unions, fra[employer] or athletic groups, or school groups?Yes 02/16/2025How often do you attend meetings of the clubs or organizations you belong to?More than 4 times per year02/16/2025re you , , , , never , or living with a partner?Nfiitgt5202/16/2025 AUDIT-CAnswerDate RecordedQ1: How often do you have [...] very hard 02/16/2025PHQ-2AnswerDate RecordedPatient Health Questionnaire-2 Score0 02/16/2025[facility] [place] [facility] - Occupational Stress QuestionnaireAnswerDate RecordedDo you feel stress - tense, restless, nervous, or anxious, or unable to sleep at night because yourmind is troubled all the time - these days?To some kqntol5902/16/2025Exercise Vital SignAnswerDate Recorded On average, how many [...] or from getting things needed for daily living?02/16/2025Housing Stability Vital SignAnswerDate RecordedIn the last 12 months, was there a time when you were not able to pay the mortgage or rent on time?No02/16/2025In the past 12 months, how many times have you moved where you were living?t any time in the past 12 months, were you homeless or living in a retirement (including now)?No02/16/2025CommentsNo Sex and Gender InformationValueDate RecordedSex Assigned at BirthNot on file Legal OxpHnkdgb19/15/2023 8:10 PM EDTGender IdentityNot on fileSexual OrientationNot on file Last Filed Vital Signs Vital SignReadingTime TakenCommentsBlood Vfwhfuzq358/8602/16/2025 11:18 AM EDT Dkylw005602/16/2025 11:18 AM ACAWptkwyrrplz82.5 ??C (97.7 ??F)02/16/2025 11:18 AM EDTRespiratory Kiiw417006/14/2024 9:14 AM ESTOxygen Vctqgodyim74%02/16/2025 11:18 AM EDTInhaled Oxygen Concentration--Nbqhrt891 kg (236 lb)02/16/2025 11:18 AM EDT Xoybyy717.4 cm (5' 5.5 )02/16/2025 11:18 AM EDTBody Mass Index38.68002/16/2025 11:18 AM EDT Plan of Treatment Health MaintenanceDue DateLast DoneCommentsCT Rxspyrpcweuw75/11/1979FIT-DNA 1978FIT1978FOBT1978 0578Cwlrlvkqqtzds90/11/1979COVID-19 Vaccine ( season)5009/20/2020, 08/23/2020Influenza Vaccine (#1) 512/, 02/13/2021, 02/08/20200160Fmniyqcus51/23/37518510/15/2024, 09/26/2023, 06/04/2022, Additional history rdmforCggspiceqhf20/15/2034 10/08/2023, 10/08/2023olorectal Cancer Grykgaspm46/15/2034HPV/Cotest Txkqcfdjqumk98/28/2024, 01/05/2020Cervical Cancer ScreeningDiscontinuedPap Smear Jlqvthigjzdl63/03/2025, 08/21/2023, 01/05/2020, Additional history exists Pneumococcal Vaccine: Pediatrics (0 to 5 Years) and At-Risk Patients (6 to 64 Years)Aged OutNo longer eligible based on patient's age to complete this topic Procedures Procedure NamePriorityDate/TimeAssociated DiagnosisCommentsBI MAMMOGRAM SCREENING TOMOSYNTHESIS JXYRVTDKBTgskpfa90/23/2025 9:28 AM EDT Encounter for screening mammogram for malignant neoplasm of breast PAP PMARIKlzowgt85/03/2025 12:00 AM EDTCOLONOSCOPY GVSSVPFGENWdasyhm19/15/2024 3:56 PM EDTTHIN PREP TIS PAP AND HR HPV GPRIknyrrt71/28/2024 10:10 PM EDT Well woman exam with routine gynecological exam from Last 3 Months or Most Recently Relevant to Health Maintenance Results * Bilateral screening mammogram with tomosynthesis (10/15/2024 9:28 AM EDT) Anatomical RegionLateralityModalityBreastBilateralMammographySpecimen (Source) Anatomical Location / LateralityCollection Method / VolumeCollection Time Received Time10/16/2024 11:22 AM EDT Impressions 10/16/2024 11:30 AM EDT Impression: No specific evidence of malignancy seen in either breast. BIRADS 2 - Benign Findings DENSITY: There are scattered areas of fibroglandular density. FOLLOW-UP: Routine Screening Mammogram ELECTRONICALLY SIGNED BY: Pasha Dawkins M.D. Narrative 10/16/2024 11:30 AM EDT Examination: BI MAMMOGRAM SCREENING TOMOSYNTHESIS BILATERAL Clinical History: screening breast cancer Technique: Screening digital mammography study of both breasts was performed with 2-D and 3-D tomosynthesis imaging. Study was compared to the prior exam dated 09/26/2023. Findings: There is no evidence of interval dominant spiculated mass, grouped microcalcifications, or skin thickening which would be suggestive of malignancy. ?? A few benign-appearing calcifications are seen bilaterally. Axillary lymph nodes are noted on the right which appear grossly unremarkable. Procedure Note Pasha Dawkins MD - 10/16/2024 Examination: BI MAMMOGRAM SCREENING TOMOSYNTHESIS BILATERAL Clinical History: screening breast cancer Technique: Screening digital mammography study of both breasts wasperformed with 2-D and 3-D tomosynthesis imaging. Study was compared tothe prior exam dated 09/26/2023. Findings: There is no evidence of interval dominant spiculated mass,grouped microcalcifications, or skin thickening which would be suggestiveof malignancy. A few benign-appearing calcifications are seen bilaterally. Axillary lymphnodes are noted on the right which appear grossly unremarkable. IMPRESSION: Impression: No specific evidence of malignancy seen in either breast. BIRADS 2 - Benign Findings DENSITY: There are scattered areas of fibroglandular density. FOLLOW-UP: Routine Screening Mammogram ELECTRONICALLY SIGNED BY: Pasha Dawkins M.D. Authorizing ProviderResult TypeResult StatusCorey Alyssa [facility] BI PROCEDURESFinal Result * Pap Smear (08/26/2024 12:00 AM EDT)Specimen (Source)Anatomical Location / LateralityCollection Method / VolumeCollection TimeReceived TimeSwabCervical swab / Unknown Narrative Authorizing ProviderResult TypeResult StatusFazio Nurse [facility] ObLAB CYTOLOGY ORDERABLESFinal ResultPerforming OrganizationAddressCity/State/ZIP CodePhone Number EXTERNAL LAB * COLONOSCOPY DIAGNOSTIC (10/08/2023 3:56 PM EDT)Anatomical RegionLaterality ModalityRadiographic Imaging Narrative Authorizing ProviderResult TypeResult StatusUnknown Practice AIMG XR PROCEDURES Final Result * THIN PREP TIS PAP AND HR HPV DNA (08/21/2023 10:10 PM EDT)Specimen (Source) Anatomical Location / LateralityCollection Method / VolumeCollection Time Received AyojGgwu35/28/2024 10:10 PM EDT Narrative Authorizing ProviderResult TypeResult StatusCorey Alyssa DOL[facility] CYTOLOGY ORDERABLESFinal ResultPerforming OrganizationAddressCity/State/ZIP CodePhone Number [facility] from Last 3 Months or Most Recently Relevant to Health Maintenance Insurance Care Teams Team MemberRelationshipSpecialtyStart [place] [address] [place] [address] PCP - Medical [place] [employer]02/04/2312 [place] [address] [place] [address] PCP - GeneralFamily Ddtcsjes47/13/24
--- OUTSIDE RECORDS SUMMARY | 2025-03-31 07:54 | XMS_ITS | Encounter Summary ---
Author Organization [facility] Address [address] [place] [address] Care Team Providers Care Gearcase Assembler Name Role Phone Agapito Patel MD Unavailable [phone] Agapito Patel MD Primary Care Provider [phone] Encounter Details DateTypeDepartmentCare Team (Latest Contact Info)Ddwutsrzmvr79/01/2024Clinisync Result Encounter [facility] Unsolicited Sukhdeep Shah, DO [address] [place] [address] Social History Tobacco UseTypesPacks/DayYears UsedDateSmoking Tobacco: NeverSmokeless Tobacco: NeverAlcohol UseStandard Drinks/WeekCommentsNever0 (1 standard drink = 0.6 oz pure alcohol)Caffine intake: 1 cup a [id number] Health LiteracyAnswerDate Recorded How often do you [...] relatives?Once a week02/16/2025How often do you attend christian or alevism services?More than 4 times per year02/16/2025Do you belong to any clubs or organizations such as christian groups, unions, [employer] or athletic groups, or school groups?Yes 02/16/2025How often do you attend meetings of the clubs or organizations you belong to?More than 4 times per year02/16/2025re you , , , , never , or living with a partner?Ofaptro3702/16/2025 AUDIT-CAnswerDate RecordedQ1: How often do you have [...] very hard 02/16/2025PHQ-2AnswerDate RecordedPatient Health Questionnaire-2 Score0 02/16/2025[facility] [place] [facility] - Occupational Stress QuestionnaireAnswerDate RecordedDo you feel stress - tense, restless, nervous, or anxious, or unable to sleep at night because yourmind is troubled all the time - these days?To some dojvro0502/16/2025Exercise Vital SignAnswerDate Recorded On average, how many days per week do you engage in moderate to strenuous exercise (like a brisk walk)?1 day02/16/2025On average, how many minutes do you engage in exercise at this level?20 min09/24/2025Hunger Vital SignAnswerDate RecordedWithin the past 12 months, [...] were you homeless or living in a longterm (including now)?No02/16/2025CommentsNo Sex and Gender InformationValueDate RecordedSex Assigned at BirthNot on file Legal HbrDzntzg04/15/2023 8:10 PM EDTGender IdentityNot on fileSexual OrientationNot on filedocumented as of this encounter Functional Status * AUDIT-C ScoreAnswerDate of WwxjxhgpgdNzailu329/24/2025 11:13 AM Demetrio Bonds * Q1: How often do you have a drink containing alcohol?AnswerDate of Assessment DyaxhyHmfgd18/24/2025 11:13 AM Demetrio Bonds * Q2: How many drinks containing alcohol do you have on a typical day when you are drinking?AnswerDate of AssessmentAuthorPatient does not drink02/16/2025 11:13 AM Demetrio Bonds * Q3: How often do you have six or more drinks on one occasion?AnswerDate of XrygpowweaLopfarXpstm30/24/2025 11:13 AM Vamshi Generic * Over the past 2 weeks, how often have you been bothered by any of the following problems?QuestionAnswerDate of AssessmentAuthorLittle interest or pleasure in doing thingsNot at all02/16/2025 11:20 AM Mariya Hall MA Feeling down, depressed, or hopelessNot at all02/16/2025 11:20 AM Mariya Hall MAPatient Health Questionnaire-2 [id number] 11:20 AM Mariya Hall MA documented as of this encounter Plan of Treatment Not on file documented as of this encounter Procedures Procedure NamePriorityDate/TimeAssociated DiagnosisCommentsECG 12-LEAD07/25/2023 11:10 AM EST documented in this encounter Results * ECG 12-LEAD (07/25/2023 11:10 AM EST)Anatomical RegionLateralityModalityOther Specimen (Source)Anatomical Location / LateralityCollection Method / Volume Collection TimeReceived Time07/25/2023 11:10 AM EST Narrative 07/26/2023 7:47 AM EST [facility] ?[address] ? [place] [address] ? Electrocardiograph Report ? Signed ? Patient: JANICETAMELAKATHY Akin ? MR#: [id number] ?? : 1980 ?Acct:[id number] ?? Age/Sex: 42 / F ?ADM Date: 07/25/23 ?? Loc: PST ? Attending Dr: Sukhdeep Shah D.O. ? Ordering Physician: Sukhdeep Shah D.O. ?? Date of Service: 07/25/23 ?? Procedure(s): ECG 12 lead ?? Accession Number(s): [id number] ? cc: ?[facility] ? Test Date: ?2023-07-25 ?? Pat Name: ? KATHY FREEMAN ?Department: ? Room: ? - ?? Gender: ? Female ? Research And Evaluation Manager: ? : ?1980 ? Requested By: SUKHDEEP ALYSSA ?? Order Number: [id number] ?Reading MD: ?? DONAL ??BALL ? Measurements ?? Intervals ?Osteen ? Rate: ? 54 ? P: ?56 ?? PA: ? 163 ?QRS: ?45 ?? QRSD: ? 96 ? T: ?34 ?? QT: ? 433 ? QTc: ?413 ? Interpretive Statements ?? SINUS BRADYCARDIA ?? No previous ECG available for comparison ?? Electronically Signed On 07-26-2023 7:46:53 EST by DONAL ??ELAINE ? Dictated By: ?Donal Henry D.O. ? Signed By: ?07/26/23746 ? DD/ 1110 ? TD/TT: ? Process Technician: Procedure Note Radiology, Radiologist, MD - 07/26/[address] [address] Electrocardiograph Report Signed Patient: KATHY FREEMANR#: [id number] : 1980Acct:[id number] Age/Sex: 42 / FADM Date: 07/25/23 Loc: PST Attending Dr: Sukhdeep Shah D.O. Ordering Physician: Sukhdeep Shah D.O. Date of Service: 07/25/23 Procedure(s): ECG 12 lead Accession Number(s): [id number] cc: [facility] Test Date: 2023-07-25 Pat Name: KATHY FREEMAN Department: Room: - Gender: Female Research And Evaluation Manager: : 1980 Requested By: SUKHDEEP SHAH Order Number: [id number] Reading MD: DONAL HENRY Measurements Intervals Osteen Rate: 54 P: 56 PA: 163 QRS: 45 QRSD: 96 T: 34 QT: 433 QTc: 413 Interpretive Statements SINUS BRADYCARDIA No previous ECG available for comparison Electronically Signed On 07-26-2023 7:46:53 EST by DONAL HENRY Dictated By: Donal Henry D.O. Signed By:07/26/23 0747 DD/ 1110 TD/TT: Process Technician: Authorizing ProviderResult TypeResult StatusCorey Alyssa DOCLINISYNC IMAGINGFinal Result documented in this encounter Visit Diagnoses Not on filedocumented in this encounter Care Teams Team MemberRelationshipSpecialtyStart [place] [address] [place] [address] PCP - Medical [place] [employer]02/04/2312 [place] [address] [place] [address] PCP - GeneralFamily Wvsgnfpb88/13/24documented as of this encounter
--- OUTSIDE RECORDS SUMMARY | 2025-03-31 07:55 | XMS_ITS | Patient Health Record ---
Author Organization The [facility] in [place] Address [address] [place] [address] Care Team Providers Care Goods Layer Name Role Phone Amanda HARPER, Agapito Primary Care Provider Unavailab le Provider, Lab Unavailable [phone] Provider, Radiology Unavailable [phone] Kusum Ramirez Unavailable [phone] Sandy Rivera Unavailable [phone] Zaida Townsend Unavailable [phone] Allergies No Known Allergies Results Component Value Reference Range Notes UA (URINALYSIS, COMPLETE) Reviewed date:08/05/2024 09:10:15 AM Interpretation: Performing Lab:[facility], [address] [place], [address] [phone] Notes/Report: FACILITY: [facility] [place] [id number] COLOR P YEL (P YEL - L AMB) CHARACTERHAZY(CLEAR - HAZY)SP. GRAVITY1.021(1.001 - 1.035)PH5.5(5.0 - 9.0) ALBUMINNEG(NONE - NEG) MG/DLGLUCOSENEG(NEG) MG/DLKETONESNEG(NEG) MG/DLBILIRUBIN NEG(NEG)UROBILINOGEN0.2(0.2 - <2.0) MG/DLOCCULT BLD.SMALL(NEG)NITRITENEG(NEG) LEUK. ESTERASENEG(NEG)UR. WBC0-4(0 - 4) /HPFUR. RBC6-10(0 - 2) /HPFSQUAMOUS EPI OCC(NONE - OCC) /HPFBACTERIAFEW(NONE - OCC) /HPFMUCUSOCC(NONE - OCC) /HPFANTI - CARDIOLIPIN (ANTIPHOSPHOLIPID) ,IGG/IGA/IGM Reviewed date:08/04/2024 05:41:58 PM Interpretation: Performing Lab:[facility], [address] [place], [place], [id number] Notes/Report: FACILITY: [facility] [id number], IgG0.6(10.0 - 40.0) U/mLACA, IgA2.7(14.0 - 20.0) U/mLACA, IgM4.6 (10.0 - 40.0) U/aWZLUC-0-OCHTMZJCHUWA IGG,IGA,and IGM Reviewed date:08/04/2024 05:41:44 PM Interpretation: Performing Lab:[facility], [facility] CenterCptfOP[address] Petey Gupta Notes/Report: FASTING:UNKNOWN FASTING: UNKNOWNB2 GLYCOPROTEIN I (IGG)AB<2.0 Value Interpretation ----- < 20.0 Antibody not detected > or = 20.0 Antibody detected The antiphospholipid antibody syndrome (APS) is a clinical-pathologic correlation that includes a clinical event (e.g. arterial or venous thrombosis, morbidity) and persistent positive antiphospholipid antibodies (IgM, IgG Cardiolipin or b2GPI antibodies greater than the 99th percentile; or a lupus anticoagulant). International consensus guidelines for APS suggest waiting at least 12 weeks before retesting to confirm antibody persistence. The [facility] Lup[facility] International [facility] immunological classification criteria for systemic lupus erythematosus (SLE) include testing for isotype IgA, which has yet to be incorporated into APS criteria. Low level antiphospholipid antibodies may sometimes be detected in the setting of infection, drug therapy or aging. For additional information, please refer to http://education.Open Lending/faq/MZH557 (This link is being provided for informational/ educational purposes only.) B2 GLYCOPROTEIN I (IGM)AB<2.0 Value Interpretation ----- < 20.0 Antibody not detected > or = 20.0 Antibody detected The antiphospholipid antibody syndrome (APS) is a clinical-pathologic correlation that includes a clinical event (e.g. arterial or venous thrombosis, morbidity) and persistent positive antiphospholipid antibodies (IgM, IgG Cardiolipin or b2GPI antibodies greater than the 99th percentile; or a lupus anticoagulant). International consensus guidelines for APS suggest waiting at least 12 weeks before retesting to confirm antibody persistence. The [facility] Lupus International [facility] immunological classification criteria for systemic lupus erythematosus (SLE) include testing for isotype IgA, which has yet to be incorporated into APS criteria. Low level antiphospholipid antibodies may sometimes be detected in the setting of infection, drug therapy or aging. For additional information, please refer to http://ExaDigm.Open Lending/faq/TFC875 (This link is being provided for informational/ educational purposes only.) B2 GLYCOPROTEIN I (IGA)AB<2.0 Value Interpretation ----- < 20.0 Antibody not detected > or = 20.0 Antibody detected The antiphospholipid antibody syndrome (APS) is a clinical-pathologic correlation that includes a clinical event (e.g. arterial or venous thrombosis, morbidity) and persistent positive antiphospholipid antibodies (IgM, IgG Cardiolipin or b2GPI antibodies greater than the 99th percentile; or a lupus anticoagulant). International consensus guidelines for APS suggest waiting at least 12 weeks before retesting to confirm antibody persistence. The [facility] Lupus International [facility] immunological classification criteria for systemic lupus erythematosus (SLE) include testing for isotype IgA, which has yet to be incorporated into APS criteria. Low level antiphospholipid antibodies may sometimes be detected in the setting of infection, drug therapy or aging. For additional information, please refer to http://ExaDigm.Brainsgate.[facility] EHR/faq/DFY822 (This link is being provided for informational/ educational purposes only.) ANTI - CCP (CYCLIC CITRULLINATED PEPTIDE AB) Reviewed date:08/04/2024 05:42:33 PM Interpretation: Performing Lab:[facility], [address] , [place], [address] Notes/Report: FACILITY: [facility] [id number] ANTIBODY0.8(0.0 - 4.9) U/mLCH 50 - COMPLEMENT, TOTAL Reviewed date:08/04/2024 05:42:24 PM Interpretation: Performing Lab:[facility], [facility] CenterQqadGD[address] Petey Gupta Notes/Report: FASTING:UNKNOWN FASTING: UNKNOWNLUPUS ANTICOAGULANT Reviewed date:08/04/2024 05:41:42 PM Interpretation: Performing Lab:[facility] [place], [facility] CenterJsreXI[address] Petey Gupta Notes/Report: FASTING:UNKNOWN FASTING: UNKNOWNLUPUS ANTICOAGULANTNOT DETECTED A Lupus Anticoagulant is not detected. For more information on this test, go to: http://ExaDigm.Open Lending/faq/WOU78s4 (This link is being provided for informational/ educational purposes only.) This interpretation is based on the following test results: PTT-LA GGTNWT23< OR = 40 secDRVVT KJUEJV04< OR = 45 secSED RATE and CRP Reviewed date:08/04/2024 05:42:01 PM Interpretation: Performing Lab:[facility], [address] [place], [address] Notes/Report: FACILITY: [facility] [id number] RATE WEST.5(0 - 25) MM/HRCRP EXTENDED RANGE3.04(0.00 - 5.00) MG/LC3 and C4 Reviewed date:08/04/2024 05:42:31 PM Interpretation: Performing Lab:[facility], [address] [place], [place], [address] Notes/Report: FACILITY: [facility] [id number] 3156(88 - 165) MG/LEOBARDO 415(14 - 44) MG/DLMTX PANEL (CBC, ALB,ALT, AST, ALK ,CREA w/GFR CKD-EPI)) Reviewed date:08/04/2024 05:42:29 PM Interpretation: Performing Lab:[facility], [address] [place] [address]., [place], [address] Notes/Report: FACILITY: [facility] [place] [id number](3.80 - 10.60) x10^8fxNYUJWJNGWU89.1(12.0 - 16.0) G/DLHEMATOCRIT 38.3(37.0 - 47.0) %MCH31.9(27.0 - 33.0) HKWSQC25.2(30.0 - 37.0) G/DLALBUMIN4.2 (3.5 - 5.0) G/DLALT (SGPT)20(1 - 35) U/LAST (SGOT)25(15 - 46) U/LALK PHOS84(38 - 126) U/LCREATININE, BLOOD0.56(0.52 - 1.04) MG/DLGFR by CKD-HSD759.6(60.0) ML/M1.7RBC4.11(4.20 - 5.40) x10^8soYTO82.2(81.0 - 99.0) ggSSZ018(130 - 400) x10^3ulXR Sacroiliac joints (3 views) * Reviewed date:08/04/2024 05:42:50 PM Interpretation: Performing Lab: Notes/Report: [facility], [address] [address] Name: PETE PALOMARES : 1980 Gender: F Referring Provider: Kusum Ramirez Exam: SACROILIAC JOINTS 3 VIEWS OR MORE Exam Start: 07/30/2024 Accn: [id number] HISTORY: Sacrococcygeal disorders, not elsewhere classified (M53.3). Pain. No injury. PROCEDURE: Sacroiliac joints three or more views. COMPARISON: No exams were available for comparison. FINDINGS: Minimal sclerosis along the left greater than right sacroiliac joint. Pelvic calcifications are likely vascular, but nonspecific. Negative for acute fracture, focal osseous lesions, or periarticular erosions. IMPRESSION: Minimal osteoarthrosis. Transcribed by: BARRINGTON PECK 07/30/2024 11:50 Sincerely, STEFANI KLEIN MD Electronically Signed: 07/30/2024 12:05 Thank you for referring KATHY FREEMAN to the [facility], [id number] Hands/Wrists Reviewed date:08/04/2024 05:42:40 PM Interpretation: Performing Lab: Notes/Report: [place] [address] Name: PETE PALOMARES : 1980 Gender: F Referring Provider: Kusum Ramirez Exam: HANDS/WRISTS Exam Start: 07/30/2024 Accn: [id number] HISTORY: Pain in left hand (M79.642). Pain in right hand (M79.641). Pain. No injury. PROCEDURE: Hands/wrists. COMPARISON: No exams were available for comparison. FINDINGS: Minimal multifocal joint space narrowing, greatest in the first carpometacarpal joints. Negative for acute fracture, focal osseous lesions, or periarticular erosions. IMPRESSION: Minimal osteoarthrosis. Transcribed by: BARRINGTON PECK 07/30/2024 11:50 Sincerely, STEFANI KLEIN MD Electronically Signed: 07/30/2024 12:05 Thank you for referring KATHY FREEMAN to the [facility] [place], [id number] Feet Standing AP LAT Reviewed date:08/04/2024 05:42:58 PM Interpretation: Performing Lab: Notes/Report: [address] [address] Name: PETE PALOMARES : 1980 Gender: F Referring Provider: Kusum Ramirez Exam: FEET STANDING AP LAT Exam Start: 07/30/2024 Accn: [id number] HISTORY: Pain in left foot (M79.672). Pain in right foot (M79.671). No injury. PROCEDURE: Feet standing AP and lateral. COMPARISON: No exams were available for comparison. FINDINGS: Bilateral plantar and retrocalcaneal heel spurs. Negative for acute fracture, focal osseous lesions, or periarticular erosions. IMPRESSION: Negative for evidence of acute osseous abnormality. Transcribed by: BARRINGTON PECK 07/30/2024 11:49 Sincerely, STEFANI KLEIN MD Electronically Signed: 07/30/2024 12:05 Thank you for referring KATHY FREEMAN to the [facility] [place], [id number] (URINALYSIS, COMPLETE) Reviewed date:09/21/2024 07:59:26 AM Interpretation: Performing Lab:[facility], [address] [place] [address]., [place], [address] Notes/Report: FACILITY: [facility] [id number] YEL(P YEL - L AMB)CHARACTERHAZY(CLEAR - HAZY)SP. GRAVITY1.006 (1.001 - 1.035)PH6.0(5.0 - 9.0)ALBUMINNEG(NONE - NEG) MG/DLGLUCOSENEG(NEG) MG/DL KETONESNEG(NEG) MG/DLBILIRUBINNEG(NEG)UROBILINOGEN0.2(0.2 - <2.0) MG/DLOCCULT BLD.SMALL(NEG)NITRITENEG(NEG)LEUK. ESTERASENEG(NEG)UR. WBC0-4(0 - 4) /HPFUR. RBC 3-5(0 - 2) /HPFSQUAMOUS EPIOCC(NONE - OCC) /HPFBACTERIANONE(NONE - OCC) /HPF MUCUSNONE(NONE - OCC) /HPFANA SUBTYPE (8) (dsDNA, SSA, SSB, BUNCH, BIZTALK ARCHITECT, SCL70,JO1,CENTOMERE) Reviewed date:08/04/2024 05:43:05 PM Interpretation: Performing Lab:[facility], [address] [place], [address] Notes/Report: PERFORMED ON PHADIA EFFECTIVE 11-11-2022 FACILITY: [facility] [id number] ds DNA1.1(0.0 - 15.0) IU/MLSSA/RO52<0.3(0.0 - 10.0) U/mLSSA/RO60 <0.4(0.0 - 10.0) U/mLANTI SSB/LA1.9(0.0 - 10.0) U/mLANTI BUNCH<0.7(0.0 - 10.0) U/mLANTI BIZTALK ARCHITECT (U1RNP)1.0(0.0 - 10.0) U/mLANTI SCL 700.7(0.0 - 10.0) U/mLANTI JULIA-1 <0.3(0.0 - 10.0) U/mLANTI CENTROMERE B0.5(0.0 - 10.0) U/mL Reason For Referral Reason Evaluate and Treat , Please call patient to set up appointement Diagnosis 1 Facial rash (R21) Referring Provider First Name Kusum Referring Provider Last Name James Referring Provider Speciality Rizwan willard Referred Organization [facility] Referred Provider Savanna Humphries Referred Address [address],[place], [place],[address], Referred Provider Specialty Dermatology General Notes Yolanda Chow 2024 10:14:13 AM >Patient did not want to schedule at this time. Referral Priority Routine Reason Evaluate and Treat Please call patient to set up appointement Diagnosis 1 Degenerative disc di sease, cervical (M50.30) Diagnosis 2 Unspecified osteoart hritis, unspecified site (M19.90) Referral Organization [facility] [place] Referring Provider First Name Kusum Referring Provider Last Name James Referring Provider Speciality Rheumattheodore willard Referred Provider undefined Referred Provider Specialty Pain Medicin e General Notes Munira Thrasher 03/21/2025 08:56:20 AM >Kusum Ramirez 03/18/2025 11:35:45 AM >will you please place referral to [facility] for OA/cspine DDD and let Kathy know when referral is placed. Thanks Clinical Notes Munira Thrasher 03/21/2025 08:56:26 AM >Kuusm Ramirez 03/18/2025 11:35:45 AM >will you please place referral to [facility] for OA/cspine DDD and let Kathy know when referral is placed. Thanks Referral Priority Routine Medications Medication SIG (Take, Route, Frequency, Duration) Notes Start Date End Date Status Potassium ActiveVitamin D3 125 MCG (5000 UT)1 capsule Orally Once a dayActiveMagnesium ActiveMetoprolol Succinate ER 25 MG1 tablet Orally Once a dayActivepredniSONE 10 MG1 tablet Orally Once a dayPRNActiveOmega-3 + Vitamin J8GfhlaaWskrmfqtefai Calcium 5 MG1 tablet Orally Once a dayActiveCholestyramine 4 GM1 packet mixed with water or non-carbonated drink Orally Once a day; Duration: 90 daysActive Estradiol 1 MG1 tablet Orally Once a dayActiveFLUoxetine HCl 40 MG1 capsule Orally Once a dayActivePantoprazole Sodium 40 MG1 tablet 30 minutes before morning meal and 1 tablet 30 minutes before evening meal Orally BID; Duration: 90 daysActiveFamotidine 20 MG1 tablet at bedtime Orally Once a day; Duration: 90 daysActiveAcetaminophen 500 MG1 tablet as needed Orally every 6 hrsActive Social History Tobacco Use: Social History Observation Description Date Details (start date - stop date) Never Smoker NA - NA Tobacco Control (Standard) Question Answer Notes Tobacco use: Nonsmoker Section Notes: ; 2 children ,1 daughter (digital advertising specialist), 1 son 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[email or web address], 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 ; 2 children ,1 daughter (digital advertising specialist), 1 son 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[email or web address], 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 ; 2 children ,1 daughter (digital advertising specialist), 1 son 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[email or web address], 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 Problems Problem Type SNOMED Code ICD Code Onset Dates Problem Status W/U Status Risk Notes Problem Gastro-esophageal re flux disease without esophagitis (661556036) Gastro-esophageal reflux disease without esophagitis (K21.9) ActiveconfirmedProblemDyskinesia of esophagus (59207041)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)ActiveconfirmedProblemNon-infective enteritis and colitis (242901342) Noninfective gastroenteritis and colitis, unspecified (K52.9)Activeconfirmed ProblemOsteoarthritis (855823066)Unspecified osteoarthritis, unspecified site (M19.90)ActiveconfirmedProblemDysphagia (08897020)Other dysphagia (R13.19)Active confirmedProblemScreening for malignant neoplasm of colon (296622162)Encounter for screening for malignant neoplasm of colon (Z12.11)ActiveconfirmedProblem Acquired absence of uterus (609886064)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 Temperature 97.7 degrees Fahrenheit 02/04/2025 34. Respiratory Rate 12 /min 11/24/2024 Xciusdld28 %.Blood pressure vpoymkcki23 mm Hg.Qgpmvd58 in.Blood pressure naimdgfq897 mm Hg.Usonnl257.2 lbs .BMI38.97 kg/m2. Encounters Encounter Location Date Provider Diagnosis Rheumatology [facility] [address] [place] [address] 11/23/2024 Kusum Ramirez Rheumatology [facility] [place] [address] [place] [address] 03/18/2025Kusum Keller [facility] [address] [place] [address]/lexandrelenka Townsend Gastro-esophageal reflux disease without esophagitis K21.9 ; Other dysphagia R13.19 ; Noninfective gastroenteritis and colitis, unspecified K52.9 ; Dyskinesia of esophagus K22.4 ; Encounter for screening for malignant neoplasm of colon Z12.11 and Acquired absence of uterus with remaining cervical stump Z90.711St [facility] [address] [place] [address]/04/2025Sirena KitzGastro-esophageal reflux disease without esophagitis K21.9 ; Other dysphagia R13.19 ; Noninfective gastroenteritis and colitis, unspecified K52.9 ; Dyskinesia of esophagus K22.4 ; Encounter for screening for malignant neoplasm of colon Z12.11 and Acquired absence of uterus with remaining cervical stump Z90.711[facility] [address] [facility] [address] [place] [phone]/Kusum LesliekANA positive R76.8 ; Degenerative disc disease, cervical M50.30 ; 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 [place], [place] [address]Lab ProviderToselect [facility] [address] 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 ; Greater trochanteric bursitis of left hip M70.62 ; Greater trochanteric bursitis of right hip M70.61 ; Pain in left hand M79.642 ; Pain in right hand M79.641 ; Sacrococcygeal disorders, not elsewhere classified M53.3 ; Pain in left foot M79.672 ; Pain inright foot M79.671 ; History of miscarriage Z87.59 and History of immunosuppression Z92.25[facility] [address] [place] [address] 5Alexandrea KinneyGastro-esophageal reflux disease without esophagitis K21.9 ; Other dysphagia R13.19 ; Noninfective gastroenteritis and colitis, unspecified K52.9 ; Dyskinesia of esophagus K22.4 ; Encounter for screening for malignant neoplasm of colon Z12.11 and Acquired absence of uterus with remaining cervical stump Z90.711[facility] [address] [place] [address] 07/30/2024Radiology ProviderSacrococcygeal disorders, not elsewhere classified M53.3 ; Pain in left foot M79.672 ; Pain in right foot M79.671 ; Pain in left hand M79.642 and Pain in right hand M79.641 Assessments Encounter Date Diagnosis (ICD Code) Assessment Notes Treatment Notes Treatment Clinical Notes Section Notes 07/30/2024 PANCHO positive (ICD-10 - R76.8) Kathy is a very pleasant 43yo white female - initial encounter with this note technical writer and editor, Overall rheum impression = unlikely systemic inflammatory disease at this time, (+)PANCHO with low level CTD/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), borderline inflammatory joint features, but nondiagnostic exam, family history of RA (though question veracity of diagnosis), will complete the additional CTD workup; chronic neck and low back pain, more mechanical pain and does NOT sound inflammatory, PCP workup helpful with (-)HLA-B27 which is reassuring; comorbid cspine DDD, minor but likely neck pain related; query low level FMS/fibromyalgia features with elevated WPI/SS scores, daily pain, fatigue, hx anxiety/depression Current inflammatory disease activity = no synovitis, enthesitis, dactylitis, sacroiliitis - PLAN: -for (+) PANCHO; --counseled on abnormal lab, long differential, provided information handout, discussed the labs general information, can be abnormal in 5-10%, and up to 30% of 'normal' population (depending upon titer, age of patient), and the antibody signal has long differential of possible causes, including but not limited to autoimmune thyroid/liver disease, medications, multiple sclerosis, autoimmune inflammatory disease, connective tissue disease (i.e. SLE, RA, sjogrens, mixed connective tissue disease,scleroderma, etc), or preclinical autoimmune disease (therefore does not meet criteria for definitive connective tissue disease at this time but can develop in the future), medication induced (i.e. TN Finhibitors, hydralazine, procainamide, minocycline, etc.), cancer, infections (hepatitis b/c, parasite, COVID infection, etc), vaccines, and importance of routine provider (primary care, etc) evaluations with interval evaluations for end organ involvement, signs and symptoms of active connective tissue/autoimmune disease, etc. --CHECK OLE, complement levels (CH50/C3/C4), UA to eval for blood/prot, ESR/CRP, basic labs to evalfor cytopenias, CCP (with fam hx of RA) - -cspine DDD; --counseled patient on below --weight loss, low impact exercise --diet: encouraged WFPB diet (whole foods plant based diet), initial counseling , visit website [email or web address] --consider prn OT (hands) --completed PT aquatics therapy 2024 for neck/back/hips, recommend continue at home exercises --analgesics, tylenol arthritis otc prn for pain is reasonable --PO NSAIDs: judicious use, consider meloxicam vs celebrex at follow up to use prn --[facility] or [facility] PM[facility] vs [facility] pain management referral prn for neck pain --CHECK plain films bl hands/wrists/feet/BL SI joints to eval for OA vs inflammatory changes - -ST rheumatism; --provided info handout on FMS for review --continue monthly massage therapy, continue low impact exercise like swimming at [employer] --TODAY for moderate pain bl troch bursa injections with 40mg triamcinolone each for symptom relief, medically necessary procedure --CONTINUE PT exercises she learned - -hx distant miscarriage; --CHECK APS labs to ensure not elevated - RTC 6-8 weeks or sooner PRN - 54 minutes = total time spent today on patients case day of encounter 49 minutes = face to face encounter, performing an exam/evaluation, counseling and educating patient about the diagnosis and plan, performing shared medical decision-making; 5 minutes = non face to face time spent, preparing for the visit, completing clinical documentation, obtaining and/or reviewing any outside history/data (PCP/GI encounters, labs/images), separately obtained history; ordering medications, tests, or procedures, independently interpreting results (not separately reported) and documenting in the EMR, and coordinating care (not separately reported); Please see additional documentation in this note for specific details. 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), borderline inflammatory joint features, but nondiagnostic exam, family history of RA (though question veracity of diagnosis), will complete the additional CTD workup; chronic neck and low back pain, more mechanical pain and does NOT sound inflammatory, PCP workup helpful with (-)HLA-B27 which is reassuring; comorbid cspine DDD, minor but likely neck pain related; query low level FMS/fibromyalgia features with elevated WPI/SS scores, daily pain, fatigue, hx anxiety/depression Current inflammatory disease activity = no synovitis, enthesitis, dactylitis, sacroiliitis - PLAN: -for (+) PANCHO; --counseled on abnormal lab, long differential, provided information handout, discussed the labs general information, can be abnormal in 5-10%, and up to 30% of 'normal' population (depending upon titer, age of patient), and the antibody signal has long differential of possible causes, including but not limited to autoimmune thyroid/liver disease, medications, multiple sclerosis, autoimmune inflammatory disease, connective tissue disease (i.e. SLE, RA, sjogrens, mixed connective tissue disease,scleroderma, etc), or preclinical autoimmune disease (therefore does not meet criteria for definitive connective tissue disease at this time but can develop in the future), medication induced (i.e. [place] Finhibitors, hydralazine, procainamide, minocycline, etc.), cancer, infections (hepatitis b/c, parasite, COVID infection, etc), vaccines, and importance of routine provider (primary care, etc) evaluations with interval evaluations for end organ involvement, signs and symptoms of active connective tissue/autoimmune disease, etc. --CHECK OLE, complement levels (CH50/C3/C4), UA to eval for blood/prot, ESR/CRP, basic labs to evalfor cytopenias, CCP (with fam hx of RA) - -cspine DDD; --counseled patient on below --weight loss, low impact exercise --diet: encouraged WFPB diet (whole foods plant based diet), initial counseling , visit website [email or web address] --consider prn OT (hands) --completed PT aquatics therapy 2024 for neck/back/hips, recommend continue at home exercises --analgesics, tylenol arthritis otc prn for pain is reasonable --PO NSAIDs: judicious use, consider meloxicam vs celebrex at follow up to use prn --[facility] or [facility] vs [facility] pain management referral prn for neck pain --CHECK plain films bl hands/wrists/feet/BL SI joints to eval for OA vs inflammatory changes - -ST rheumatism; --provided info handout on FMS for review --continue monthly massage therapy, continue low impact exercise like swimming at [employer] --TODAY for moderate pain bl troch bursa injections with 40mg triamcinolone each for symptom relief, medically necessary procedure --CONTINUE PT exercises she learned - -hx distant miscarriage; --CHECK APS labs to ensure not elevated - RTC 6-8 weeks or sooner PRN - 54 minutes = total time spent today on patients case day of encounter 49 minutes = face to face encounter, performing an exam/evaluation, counseling and educating patient about the diagnosis and plan, performing shared medical decision-making; 5 minutes = non face to face time spent, preparing for the visit, completing clinical documentation, obtaining and/or reviewing any outside history/data (PCP/GI encounters, labs/images), separately obtained history; ordering medications, tests, or procedures, independently interpreting results (not separately reported) and documenting in the EMR, and coordinating care (not separately reported); Please see additional documentation in this note for specific details. 06/14/2024Gastro-esophageal reflux disease without esophagitis (ICD-10 - K21.9) 06/14/24: Patient reports her heartburn is well controlled with pantoprazole 40mg BID and famotidine 20mg QHS. EGD in September 2023 was unremarkable. Will restart pantoprazole 40mg BID and famotidine 20mg QHS. 06/14/2024Other dysphagia (ICD-10 - R13.19) 06/14/24: Patient reports she has dysphagia for most of her life. She had an EM study performed that showed ineffective esophageal motility disorder. EGD in September 2023 perfromed in [place], was unremarkable. Will restart pantoprazole 40mg BID and famotidine 20mg QHS. Discussed with the patient the option to schedule EGD with Botox. She would like to hold off at this time. 07/30/2024Gastro-esophageal reflux disease without esophagitis (ICD-10 - K21.9) Patient reports her heartburn is well controlled with pantoprazole 40mg BID and famotidine 20mg QHS. EGD in September 2023 was unremarkable. Interval History 07/29/24: Patient reports her heartburn is well controlled with pantoprazole 40mg BID and famotidine 20mg QHS. Advised the patient to continue current regimen. 02/04/2025Gastro-esophageal reflux disease without esophagitis (ICD-10 - K21.9) Patient reports her heartburn is well controlled with pantoprazole 40mg BID and famotidine 20mg QHS. EGD in September 2023 was unremarkable. 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 chronic neck and low back pain, more mechanical pain and does NOT sound inflammatory, PCP workup helpful with (-)HLA-B27. comorbid OA, cspine DDD, minor but likely neck pain related. query low level FMS/fibromyalgia features with elevated WPI/SS scores, daily pain, fatigue, hx anxiety/depression. microhematuria, unclear etiology. Current inflammatory disease activity = no synovitis, enthesitis, dactylitis, sacroiliitis; Mar25 (-)ESR/CRP - PLAN: -for (+) PANCHO; status =STABLE --monitor for CTD evolution, periodic update labs/autoimmune markers if more symptoms evolve (rashes, mouth/nasal sores, alopecia, inflammatory arthritis, etc.) - -OA, cspine DDD; status =SYMPTOMATIC --weight loss, low impact exercise --diet: encouraged WFPB diet (whole foods plant based diet), initial counseling , visit website [email or web address] --consider prn OT (hands) --completed PT aquatics therapy 2024 for neck/back/hips, recommend continue at home exercises --analgesics, tylenol arthritis otc prn for pain is reasonable --PO NSAIDs: judicious use, consider meloxicam vs celebrex at follow up to use prn --[facility] or [facility] vs [facility] pain management referral prn for neck pain - -ST rheumatism; status =STABLE --previously provided info handout on FMS for review --counseled the importance of 3 tiered approach (exercise, sleep, BH/behavioral health) --exercise: continue low impact exercise like swimming at [facility] --sleep: improve restorative sleep, cont CPAP use --BH: LOW current recommendation, f/u PCP to discuss BH eval if indicated --continue monthly massage therapy --repeat prn for moderate pain bl troch bursa injections with 40mg triamcinolone each ( bl prior inj) --CONTINUE PT exercises she learned 2024 --FMS pharm therapy: per PCP, consider lyrica, gabapentin or cymbalta - -microhematuria; status =?STABLE --REPEAT UA to ensure normalizes, IF continues, she will f/u obgyn again who has urology provider she can see - -hx distant miscarriage; -- (-) APS labs - RTC PRN for BL troch bursa injections or other new sxs/concerns from patient or other providers standpoint - medical decision making: level 4 multiple chronic conditions addressed reviewed labs/images. 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 chronic neck and low back pain, more mechanical pain and does NOT sound inflammatory, PCP workup helpful with (-)HLA-B27. comorbid OA, cspine DDD, minor but likely neck pain related. query low level FMS/fibromyalgia features with elevated WPI/SS scores, daily pain, fatigue, hx anxiety/depression. microhematuria, unclear etiology. Current inflammatory disease activity = no synovitis, enthesitis, dactylitis, sacroiliitis; (-)ESR/CRP - PLAN: -for (+) PANCHO; status =STABLE --monitor for CTD evolution, periodic update labs/autoimmune markers if more symptoms evolve (rashes, mouth/nasal sores, alopecia, inflammatory arthritis, etc.) - -OA, cspine DDD; status =SYMPTOMATIC --weight loss, low impact exercise --diet: encouraged WFPB diet (whole foods plant based diet), initial counseling , visit website [email or web address] --consider prn OT (hands) --completed PT aquatics therapy 2024 for neck/back/hips, recommend continue at home exercises --analgesics, tylenol arthritis otc prn for pain is reasonable --PO NSAIDs: judicious use, consider meloxicam vs celebrex at follow up to use prn --[facility] or [facility] vs [facility] pain management referral prn for neck pain - -ST rheumatism; status =STABLE --previously provided info handout on FMS for review --counseled the importance of 3 tiered approach (exercise, sleep, BH/behavioral health) --exercise: continue low impact exercise like swimming at [facility] --sleep: improve restorative sleep, cont CPAP use --BH: LOW current recommendation, f/u PCP to discuss BH eval if indicated --continue monthly massage therapy --repeat prn for moderate pain bl troch bursa injections with 40mg triamcinolone each ( bl prior inj) --CONTINUE PT exercises she learned 2024 --FMS pharm therapy: per PCP, consider lyrica, gabapentin or cymbalta - -microhematuria; status =?STABLE --REPEAT UA to ensure normalizes, IF continues, she will f/u obgyn again who has urology provider she can see - -hx distant miscarriage; -- (-) APS labs - RTC PRN for BL troch bursa injections or other new sxs/concerns from patient or other providers standpoint - medical decision making: level 4 multiple chronic conditions addressed reviewed labs/images. 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 chronic neck and low back pain, more mechanical pain and does NOT sound inflammatory, PCP workup helpful with (-)HLA-B27. comorbid OA, cspine DDD, minor but likely neck pain related. query low level FMS/fibromyalgia features with elevated WPI/SS scores, daily pain, fatigue, hx anxiety/depression. microhematuria, unclear etiology. Current inflammatory disease activity= no synovitis, enthesitis, dactylitis, sacroiliitis; (-)ESR/CRP - PLAN: -for (+) PANCHO; status =STABLE --monitor for CTD evolution, periodic update labs/autoimmune markers if more symptoms evolve (rashes, mouth/nasal sores, alopecia, inflammatory arthritis, etc.) - -OA, cspine DDD; status =SYMPTOMATIC --weight loss, low impact exercise --diet: encouraged WFPB diet (whole foods plant based diet), initial counseling , visit website [email or web address] --consider prn OT (hands) --completed PT aquatics therapy 2024 for neck/back/hips, recommend continue at home exercises --analgesics, tylenol arthritis otc prn for pain is reasonable --PO NSAIDs: judicious use, consider meloxicam vs celebrex at follow up to use prn --[facility] or [facility] vs [facility] pain management referral prn for neck pain - -ST rheumatism; status =SYMPTOMATIC --previously provided info handout on FMS for review --counseled the importance of 3 tiered approach (exercise, sleep, BH/behavioral health) --exercise: continue low impact exercise like swimming at [employer] --sleep: improve restorative sleep, cont CPAP use --BH: LOW current recommendation, f/u PCP to discuss BH eval if indicated --continue monthly massage therapy --CONTINUE PT exercises she learned 2024 --FMS pharm therapy: per PCP, consider lyrica, gabapentin or cymbalta --TODAY repeat for moderate pain bl troch bursa injections with 40mg triamcinolone each for symptomrelief, medically necessary procedure ( bl prior inj) - -microhematuria; status =STABLE --uro: f/u Ambrosio, status post cysto, following yearly - RTC PRN for BL troch bursa injections or other new sxs/concerns from patient or other providers standpoint - medical decision making: level 4 multiple chronic conditions addressed flare bl troch bursa pain requiring procedure monitoring lab, clinical, imaging for autoimmune disease activity and end organ involvement 11/24/2024Degenerative disc disease, cervical (ICD-10 - M50.30) Kathy is a very pleasant 44yo white female - Overall rheum impression= no definite systemic inflammatory disease at this time, (+)PANCHO likely false (+) with (-)OLE, C3/C4, 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 chronic neck and low back pain, more mechanical pain and does NOT sound inflammatory, PCP workup helpful with (-)HLA-B27. comorbid OA, cspine DDD, minor but likely neck pain related. query low level FMS/fibromyalgia features with elevated WPI/SS scores, daily pain, fatigue, hx anxiety/depression. microhematuria, unclear etiology. Current inflammatory disease activity= no synovitis, enthesitis, dactylitis, sacroiliitis; Mar25 (-)ESR/CRP - PLAN: -for (+) PANCHO; status =STABLE --monitor for CTD evolution, periodic update labs/autoimmune markers if more symptoms evolve (rashes, mouth/nasal sores, alopecia, inflammatory arthritis, etc.) - -OA, cspine DDD; status =SYMPTOMATIC --weight loss, low impact exercise --diet: encouraged WFPB diet (whole foods plant based diet), initial counseling , visit website [email or web address] --consider prn OT (hands) --completed PT aquatics therapy 2024 for neck/back/hips, recommend continue at home exercises --analgesics, tylenol arthritis otc prn for pain is reasonable --PO NSAIDs: judicious use, consider meloxicam vs celebrex at follow up to use prn --[facility] or [facility] vs [facility] pain management referral prn for neck pain - -ST rheumatism; status =SYMPTOMATIC --previously provided info handout on FMS for review --counseled [id number] the importance of 3 tiered approach (exercise, sleep, BH/behavioral health) --exercise: continue low impact exercise like swimming at [facility] --sleep: improve restorative sleep, cont CPAP use --BH: LOW current recommendation, f/u PCP to discuss BH eval if indicated --continue monthly massage therapy --CONTINUE PT exercises she learned 2024 --FMS pharm therapy: per PCP, consider lyrica, gabapentin or cymbalta --TODAY repeat for moderate pain bl troch bursa injections with 40mg triamcinolone each for symptomrelief, medically necessary procedure ( bl prior inj) - -microhematuria; status =STABLE --uro: f/u Ambrosio, status post cysto, following yearly - RTC PRN for BL troch bursa injections or other new sxs/concerns from patient or other providers standpoint - medical decision making: level 4 multiple chronic conditions addressed flare bl troch bursa pain requiring procedure monitoring lab, clinical, imaging for autoimmune disease activity and end organ involvement 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 chronic neck and low back pain, more mechanical pain and does NOT sound inflammatory, PCP workup helpful with (-)HLA-B27. comorbid OA, cspine DDD, minor but likely neck pain related. query low level FMS/fibromyalgia features with elevated WPI/SS scores, daily pain, fatigue, hx anxiety/depression. microhematuria, unclear etiology. Current inflammatory disease activity= no synovitis, enthesitis, dactylitis, sacroiliitis; (-)ESR/CRP - PLAN: -for (+) PANCHO; status =STABLE --monitor for CTD evolution, periodic update labs/autoimmune markers if more symptoms evolve (rashes, mouth/nasal sores, alopecia, inflammatory arthritis, etc.) - -OA, cspine DDD; status =SYMPTOMATIC --weight loss, low impact exercise --diet: encouraged WFPB diet (whole foods plant based diet), initial counseling , visit website [email or web address] --consider prn OT (hands) --completed PT aquatics therapy 2024 for neck/back/hips, recommend continue at home exercises --analgesics, tylenol arthritis otc prn for pain is reasonable --PO NSAIDs: judicious use, consider meloxicam vs celebrex at follow up to use prn --[facility] or [facility] vs [facility] pain management referral prn for neck pain - -ST rheumatism; status =SYMPTOMATIC --previously provided info handout on FMS for review --counseled the importance of 3 tiered approach (exercise, sleep, BH/behavioral health) --exercise: continue low impact exercise like swimming at [facility] --sleep: improve restorative sleep, cont CPAP use --BH: LOW current recommendation, f/u PCP to discuss BH eval if indicated --continue monthly massage therapy --CONTINUE PT exercises she learned 2024 --FMS pharm therapy: per PCP, consider lyrica, gabapentin or cymbalta --TODAY repeat for moderate pain bl troch bursa injections with 40mg triamcinolone each for symptomrelief, medically necessary procedure ( bl prior inj) - -microhematuria; status =STABLE --uro: f/u Ambrosio, status post cysto, following yearly - RTC PRN for BL troch bursa injections or other new sxs/concerns from patient or other providers standpoint - medical decision making: level 4 multiple chronic conditions addressed flare bl troch bursa pain requiring procedure monitoring lab, clinical, imaging for autoimmune disease activity and end organ involvement 07/30/2024Pain in left foot (ICD-10 - M79.672)09/20/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 chronic neck and low back pain, more mechanical pain and does NOT sound inflammatory, PCP workup helpful with (-)HLA-B27. comorbid OA, cspine DDD, minor but likely neck pain related. query low level FMS/fibromyalgia features with elevated WPI/SS scores, daily pain, fatigue, hx anxiety/depression. microhematuria, unclear etiology. Current inflammatory disease activity = no synovitis, enthesitis, dactylitis, sacroiliitis; (-)ESR/CRP - PLAN: -for (+) PANCHO; status =STABLE --monitor for CTD evolution, periodic update labs/autoimmune markers if more symptoms evolve (rashes, mouth/nasal sores, alopecia, inflammatory arthritis, etc.) - -OA, cspine DDD; status =SYMPTOMATIC --weight loss, low impact exercise --diet: encouraged WFPB diet (whole foods plant based diet), initial counseling , visit website [email or web address] --consider prn OT (hands) --completed PT aquatics therapy 2024 for neck/back/hips, recommend continue at home exercises --analgesics, tylenol arthritis otc prn for pain is reasonable --PO NSAIDs: judicious use, consider meloxicam vs celebrex at follow up to use prn --[facility] or [facility] vs [facility] pain management referral prn for neck pain - -ST rheumatism; status =STABLE --previously provided info handout on FMS for review --counseled the importance of 3 tiered approach (exercise, sleep, BH/behavioral health) --exercise: continue low impact exercise like swimming at [facility] --sleep: improve restorative sleep, cont CPAP use --BH: LOW current recommendation, f/u PCP to discuss BH eval if indicated --continue monthly massage therapy --repeat prn for moderate pain bl troch bursa injections with 40mg triamcinolone each ( bl prior inj) --CONTINUE PT exercises she learned 2024 --FMS pharm therapy: per PCP, consider lyrica, gabapentin or cymbalta - -microhematuria; status =?STABLE --REPEAT UA to ensure normalizes, IF continues, she will f/u obgyn again who has urology provider she can see - -hx distant miscarriage; -- (-) APS labs - RTC PRN for BL troch bursa injections or other new sxs/concerns from patient or other providers standpoint - medical decision making: level 4 multiple chronic conditions addressed reviewed labs/images. additional lab order required due to microhematuria monitoring lab, clinical, imaging for autoimmune disease activity and end organ involvement 02/04/2025Other dysphagia (ICD-10 - R13.19) Patient reports she has dysphagia for most of her life. She had an EM study performed that showed ineffective esophageal motility disorder. EGD in September 2023 perfromed in [place], was unremarkable. Declining repeat EGD at this time Continue pantoprazole and famotidine 07/30/2024Other dysphagia (ICD-10 - R13.19) Patient reports she has dysphagia for most of her life. She had an EM study performed that showed ineffective esophageal motility disorder. EGD in September 2023 perfromed in [place], was unremarkable. Interval History 07/29/24: Advised the patient to continue taking pantoprazole 40mg BID and famotidine 20mg QHS. Discussed with the patient the option to schedule EGD with Botox. She would like to hold off at this time. 06/14/2024Noninfective gastroenteritis and colitis, unspecified (ICD-10 - K52.9) 06/14/24: Patient reports 5-10 BM daily. Patient reports she has had chronic diarrhea for the past 30 years. Patient reports she started taking cholestyramine, which resolved the diarrhea. Colonoscopy in September 2023 performed in [place] was unremarkable. Will refill cholestyramine 4mg. Advised the patient to take at 12 pm, 4 hours away from other medication. 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, Overall rheum impression = unlikely systemic inflammatory disease at this time, (+)PANCHO with low level CTD/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), borderline inflammatory joint features, but nondiagnostic exam, family history of RA (though question veracity of diagnosis), will complete the additional CTD workup; chronic neck and low back pain, more mechanical pain and does NOT sound inflammatory, PCP workup helpful with (-)HLA-B27 which is reassuring; comorbid cspine DDD, minor but likely neck pain related; query low level FMS/fibromyalgia features with elevated WPI/SS scores, daily pain, fatigue, hx anxiety/depression Current inflammatory disease activity = no synovitis, enthesitis, dactylitis, sacroiliitis - PLAN: -for (+) PANCHO; --counseled on abnormal lab, long differential, provided information handout, discussed the labs general information, can be abnormal in 5-10%, and up to 30% of 'normal' population (depending upon titer, age of patient), and the antibody signal has long differential of possible causes, including but not limited to autoimmune thyroid/liver disease, medications, multiple sclerosis, autoimmune inflammatory disease, connective tissue disease (i.e. SLE, RA, sjogrens, mixed connective tissue disease,scleroderma, etc), or preclinical autoimmune disease (therefore does not meet criteria for definitive connective tissue disease at this time but can develop in the future), medication induced (i.e. [place] Finhibitors, hydralazine, procainamide, minocycline, etc.), cancer, infections (hepatitis b/c, parasite, COVID infection, etc), vaccines, and importance of routine provider (primary care, etc) evaluations with interval evaluations for end organ involvement, signs and symptoms of active connective tissue/autoimmune disease, etc. --CHECK OLE, complement levels (CH50/C3/C4), UA to eval for blood/prot, ESR/CRP, basic labs to evalfor cytopenias, CCP (with fam hx of RA) - -cspine DDD; --counseled patient on below --weight loss, low impact exercise --diet: encouraged WFPB diet (whole foods plant based diet), initial counseling , visit website [email or web address] --consider prn OT (hands) --completed PT aquatics therapy 2024 for neck/back/hips, recommend continue at home exercises --analgesics, tylenol arthritis otc prn for pain is reasonable --PO NSAIDs: judicious use, consider meloxicam vs celebrex at follow up to use prn --[facility] or [facility] vs [facility] pain management referral prn for neck pain --CHECK plain films bl hands/wrists/feet/BL SI joints to eval for OA vs inflammatory changes - -ST rheumatism; --provided info handout on FMS for review --continue monthly massage therapy, continue low impact exercise like swimming at [employer] --TODAY for moderate pain bl troch bursa injections with 40mg triamcinolone each for symptom relief, medically necessary procedure --CONTINUE PT exercises she learned - -hx distant miscarriage; --CHECK APS labs to ensure not elevated - RTC 6-8 weeks or sooner PRN - 54 minutes = total time spent today on patients case day of encounter 49 minutes = face to face encounter, performing an exam/evaluation, counseling and educating patient about the diagnosis and plan, performing shared medical decision-making; 5 minutes = non face to face time spent, preparing for the visit, completing clinical documentation, obtaining and/or reviewing any outside history/data (PCP/GI encounters, labs/images), separately obtained history; ordering medications, tests, or procedures, independently interpreting results (not separately reported) and documenting in the EMR, and coordinating care (not separately reported); Please see additional documentation in this note for specific details. 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) Kathy is a very pleasant 43yo white female - initial encounter with this note technical writer and editor, Overall rheum impression = unlikely systemic inflammatory disease at this time, (+)PANCHO with low level CTD/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), borderline inflammatory joint features, but nondiagnostic exam, family history of RA (though question veracity of diagnosis), will complete the additional CTD workup; chronic neck and low back pain, more mechanical pain and does NOT sound inflammatory, PCP workup helpful with (-)HLA-B27 which is reassuring; comorbid cspine DDD, minor but likely neck pain related; query low level FMS/fibromyalgia features with elevated WPI/SS scores, daily pain, fatigue, hx anxiety/depression Current inflammatory disease activity = no synovitis, enthesitis, dactylitis, sacroiliitis - PLAN: -for (+) PANCHO; --counseled on abnormal lab, long differential, provided information handout, discussed the labs general information, can be abnormal in 5-10%, and up to 30% of 'normal' population (depending upon titer, age of patient), and the antibody signal has long differential of possible causes, including but not limited to autoimmune thyroid/liver disease, medications, multiple sclerosis, autoimmune inflammatory disease, connective tissue disease (i.e. SLE, RA, sjogrens, mixed connective tissue disease,scleroderma, etc), or preclinical autoimmune disease (therefore does not meet criteria for definitive connective tissue disease at this time but can develop in the future), medication induced (i.e. [place] Finhibitors, hydralazine, procainamide, minocycline, etc.), cancer, infections (hepatitis b/c, parasite, COVID infection, etc), vaccines, and importance of routine provider (primary care, etc) evaluations with interval evaluations for end organ involvement, signs and symptoms of active connective tissue/autoimmune disease, etc. --CHECK OLE, complement levels (CH50/C3/C4), UA to eval for blood/prot, ESR/CRP, basic labs to evalfor cytopenias, CCP (with fam hx of RA) - -cspine DDD; --counseled patient on below --weight loss, low impact exercise --diet: encouraged WFPB diet (whole foods plant based diet), initial counseling , visit website [email or web address] --consider prn OT (hands) --completed PT aquatics therapy 2024 for neck/back/hips, recommend continue at home exercises --analgesics, tylenol arthritis otc prn for pain is reasonable --PO NSAIDs: judicious use, consider meloxicam vs celebrex at follow up to use prn --[facility] vs [facility] pain management referral prn for neck pain --CHECK plain films bl hands/wrists/feet/BL SI joints to eval for OA vs inflammatory changes - -ST rheumatism; --provided info handout on FMS for review --continue monthly massage therapy, continue low impact exercise like swimming at [employer] --TODAY for moderate pain bl troch bursa injections with 40mg triamcinolone each for symptom relief, medically necessary procedure --CONTINUE PT exercises she learned - -hx distant miscarriage; --CHECK APS labs to ensure not elevated - RTC 6-8 weeks or sooner PRN - 54 minutes = total time spent today on patients case day of encounter 49 minutes = face to face encounter, performing an exam/evaluation, counseling and educating patient about the diagnosis and plan, performing shared medical decision-making; 5 minutes = non face to face time spent, preparing for the visit, completing clinical documentation, obtaining and/or reviewing any outside history/data (PCP/GI encounters, labs/images), separately obtained history; ordering medications, tests, or procedures, independently interpreting results (not separately reported) and documenting in the EMR, and coordinating care (not separately reported); Please see additional documentation in this note for specific details. 06/14/2024Dyskinesia of esophagus (ICD-10 - K22.4) 06/14/24: Patient reports she has dysphagia for most of her life. She had an EM study performed that showed ineffective esophageal motility disorder. EGD in September 2023 perfromed in [place], was unremarkable. Will restart pantoprazole 40mg BID and famotidine 20mg QHS. Discussed with the patient the option to schedule EGD with Botox. She would like to hold off at this time. 07/30/2024Noninfective gastroenteritis and colitis, unspecified (ICD-10 - K52.9) Patient reports 5-10 BM daily. Patient reports she has had chronic diarrhea for the past 30 years. Patient reports she started taking cholestyramine, which resolved the diarrhea. Colonoscopy in September 2023 performed in [place] was unremarkable. Interval History 07/29/24: Patient reports 2-3 BM daily. Patient reports she is taking the cholestyramine at lunch 4 hours from other medications. She reports the cholestyramine has resolved the diarrhea. Advised the patient to continune current regimen. 02/04/2025Noninfective gastroenteritis and colitis, unspecified (ICD-10 - K52.9) Patient reports 5-10 BM daily. Patient reports she has had chronic diarrhea for the past 30 years. Patient reports she started taking cholestyramine, which resolved the diarrhea. Colonoscopy in September 2023 performed in [place] was unremarkable. Declining repeat stool studies Continue cholestyramine Adjust dose of medication as needed to prevent constipation 09/20/2024Microhematuria (ICD-10 - R31.29) Kathy is a very pleasant 43yo white female - 2nd rheum encounter Overall rheum impression = unlikely systemic inflammatory disease at this time, (+)PANCHO likely false(+) with (-)OLE, C3/C4, 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 chronic neck and low back pain, more mechanical pain and does NOT sound inflammatory, PCP workup helpful with (-)HLA-B27. comorbid OA, cspine DDD, minor but likely neck pain related. query low level FMS/fibromyalgia features with elevated WPI/SS scores, daily pain, fatigue, hx anxiety/depression. microhematuria, unclear etiology. Current inflammatory disease activity = no synovitis, enthesitis, dactylitis, sacroiliitis; (-)ESR/CRP - PLAN: -for (+) PANCHO; status =STABLE --monitor for CTD evolution, periodic update labs/autoimmune markers if more symptoms evolve (rashes, mouth/nasal sores, alopecia, inflammatory arthritis, etc.) - -OA, cspine DDD; status =SYMPTOMATIC --weight loss, low impact exercise --diet: encouraged WFPB diet (whole foods plant based diet), initial counseling , visit website [email or web address] --consider prn OT (hands) --completed PT aquatics therapy 2024 for neck/back/hips, recommend continue at home exercises --analgesics, tylenol arthritis otc prn for pain is reasonable --PO NSAIDs: judicious use, consider meloxicam vs celebrex at follow up to use prn --[facility] pain management referral prn for neck pain - -ST rheumatism; status =STABLE --previously provided info handout on FMS for review --counseled the importance of 3 tiered approach (exercise, sleep, BH/behavioral health) --exercise: continue low impact exercise like swimming at [employer] --sleep: improve restorative sleep, cont CPAP use --BH: LOW current recommendation, f/u PCP to discuss BH eval if indicated --continue monthly massage therapy --repeat prn for moderate pain bl troch bursa injections with 40mg triamcinolone each ( bl prior inj) --CONTINUE PT exercises she learned 2024 --FMS pharm therapy: per PCP, consider lyrica, gabapentin or cymbalta - -microhematuria; status =?STABLE --REPEAT UA to ensure normalizes, IF continues, she will f/u obgyn again who has urology provider she can see - -hx distant miscarriage; -- (-) APS labs - RTC PRN for BL troch bursa injections or other new sxs/concerns from patient or other providers standpoint - medical decision making: level 4 multiple chronic conditions addressed reviewed labs/images. 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 chronic neck and low back pain, more mechanical pain and does NOT sound inflammatory, PCP workup helpful with (-)HLA-B27. comorbid OA, cspine DDD, minor but likely neck pain related. query low level FMS/fibromyalgia features with elevated WPI/SS scores, daily pain, fatigue, hx anxiety/depression. microhematuria, unclear etiology. Current inflammatory disease activity= no synovitis, enthesitis, dactylitis, sacroiliitis; (-)ESR/CRP - PLAN: -for (+) PANCHO; status =STABLE --monitor for CTD evolution, periodic update labs/autoimmune markers if more symptoms evolve (rashes, mouth/nasal sores, alopecia, inflammatory arthritis, etc.) - -OA, cspine DDD; status =SYMPTOMATIC --weight loss, low impact exercise --diet: encouraged WFPB diet (whole foods plant based diet), initial counseling , visit website [email or web address] --consider prn OT (hands) --completed PT aquatics therapy 2024 for neck/back/hips, recommend continue at home exercises --analgesics, tylenol arthritis otc prn for pain is reasonable --PO NSAIDs: judicious use, consider meloxicam vs celebrex at follow up to use prn --[facility] or [facility] vs [facility] pain management referral prn for neck pain - -ST rheumatism; status =SYMPTOMATIC --previously provided info handout on FMS for review --counseled the importance of 3 tiered approach (exercise, sleep, BH/behavioral health) --exercise: continue low impact exercise like swimming at [facility] --sleep: improve restorative sleep, cont CPAP use --BH: LOW current recommendation, f/u PCP to discuss BH eval if indicated --continue monthly massage therapy --CONTINUE PT exercises she learned 2024 --FMS pharm therapy: per PCP, consider lyrica, gabapentin or cymbalta --TODAY repeat for moderate pain bl troch bursa injections with 40mg triamcinolone each for symptomrelief, medically necessary procedure ( bl prior inj) - -microhematuria; status =STABLE --uro: f/u Ambrosio, status post cysto, following yearly - RTC PRN for BL troch bursa injections or other new sxs/concerns from patient or other providers standpoint - medical decision making: level 4 multiple chronic conditions addressed flare bl troch bursa pain requiring procedure monitoring lab, clinical, imaging for autoimmune disease activity and end organ involvement 11/24/2024Other manager personnel selection (current) drug therapy (ICD-10 - Z79.899) Kathy is a very pleasant 44yo white female - Overall rheum impression= no definite systemic inflammatory disease at this time, (+)PANCHO likely false (+) with (-)OLE, C3/C4, 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 chronic neck and low back pain, more mechanical pain and does NOT sound inflammatory, PCP workup helpful with (-)HLA-B27. comorbid OA, cspine DDD, minor but likely neck pain related. query low level FMS/fibromyalgia features with elevated WPI/SS scores, daily pain, fatigue, hx anxiety/depression. microhematuria, unclear etiology. Current inflammatory disease activity= no synovitis, enthesitis, dactylitis, sacroiliitis; Mar25 (-)ESR/CRP - PLAN: -for (+) PANCHO; status =STABLE --monitor for CTD evolution, periodic update labs/autoimmune markers if more symptoms evolve (rashes, mouth/nasal sores, alopecia, inflammatory arthritis, etc.) - -OA, cspine DDD; status =SYMPTOMATIC --weight loss, low impact exercise --diet: encouraged WFPB diet (whole foods plant based diet), initial counseling , visit website [email or web address] --consider prn OT (hands) --completed PT aquatics therapy 2024 for neck/back/hips, recommend continue at home exercises --analgesics, tylenol arthritis otc prn for pain is reasonable --PO NSAIDs: judicious use, consider meloxicam vs celebrex at follow up to use prn --[facility] or [facility] vs [facility] pain management referral prn for neck pain - -ST rheumatism; status =SYMPTOMATIC --previously provided info handout on FMS for review --counseled the importance of 3 tiered approach (exercise, sleep, BH/behavioral health) --exercise: continue low impact exercise like swimming at [employer] --sleep: improve restorative sleep, cont CPAP use --BH: LOW current recommendation, f/u PCP to discuss BH eval if indicated --continue monthly massage therapy --CONTINUE PT exercises she learned 2024 --FMS pharm therapy: per PCP, consider lyrica, gabapentin or cymbalta --TODAY repeat for moderate pain bl troch bursa injections with 40mg triamcinolone each for symptomrelief, medically necessary procedure ( bl prior inj) - -microhematuria; status =STABLE --uro: f/u Ambrosio, status post cysto, following yearly - RTC PRN for BL troch bursa injections or other new sxs/concerns from patient or other providers standpoint - medical decision making: level 4 multiple chronic conditions addressed flare bl troch bursa pain requiring procedure monitoring lab, clinical, imaging for autoimmune disease activity and end organ involvement 07/30/2024Pain in left hand (ICD-10 - M79.642)02/04/2025Dyskinesia of esophagus (ICD-10 - K22.4)Patient reports she has dysphagia for most of her life. She had an EM study performed that showed ineffective esophageal motility disorder. 07/30/2024Dyskinesia of esophagus (ICD-10 - K22.4) Patient reports she has dysphagia for most of her life. She had an EM study performed that showed ineffective esophageal motility disorder. EGD in September 2023 perfromed in [place], was unremarkable. Discussed with the patient the option to schedule EGD with Botox. She would like to hold off at this time. 06/14/2024Encounter for screening for malignant neoplasm of colon (ICD-10 - Z12.11) Patient denies family history of colon cancer. Colonoscopy in September 2023 performed in [place] was unremarkable. Repeat colonoscopy in 10 years. 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), borderline inflammatory joint features, but nondiagnostic exam, family history of RA (though question veracity of diagnosis), will complete the additional CTD workup; chronic neck and low back pain, more mechanical pain and does NOT sound inflammatory, PCP workup helpful with (-)HLA-B27 which is reassuring; comorbid cspine DDD, minor but likely neck pain related; query low level FMS/fibromyalgia features with elevated WPI/SS scores, daily pain, fatigue, hx anxiety/depression Current inflammatory disease activity = no synovitis, enthesitis, dactylitis, sacroiliitis - PLAN: -for (+) PANCHO; --counseled on abnormal lab, long differential, provided information handout, discussed the labs general information, can be abnormal in 5-10%, and up to 30% of 'normal' population (depending upon titer, age of patient), and the antibody signal has long differential of possible causes, including but not limited to autoimmune thyroid/liver disease, medications, multiple sclerosis, autoimmune inflammatory disease, connective tissue disease (i.e. SLE, RA, sjogrens, mixed connective tissue disease,scleroderma, etc), or preclinical autoimmune disease (therefore does not meet criteria for definitive connective tissue disease at this time but can develop in the future), medication induced (i.e. [place] Finhibitors, hydralazine, procainamide, minocycline, etc.), cancer, infections (hepatitis b/c, parasite, COVID infection, etc), vaccines, and importance of routine provider (primary care, etc) evaluations with interval evaluations for end organ involvement, signs and symptoms of active connective tissue/autoimmune disease, etc. --CHECK OLE, complement levels (CH50/C3/C4), UA to eval for blood/prot, ESR/CRP, basic labs to evalfor cytopenias, CCP (with fam hx of RA) - -cspine DDD; --counseled patient on below --weight loss, low impact exercise --diet: encouraged WFPB diet (whole foods plant based diet), initial counseling , visit website [email or web address] --consider prn OT (hands) --completed PT aquatics therapy 2024 for neck/back/hips, recommend continue at home exercises --analgesics, tylenol arthritis otc prn for pain is reasonable --PO NSAIDs: judicious use, consider meloxicam vs celebrex at follow up to use prn --[facility] or [facility] vs [facility] pain management referral prn for neck pain --CHECK plain films bl hands/wrists/feet/BL SI joints to eval for OA vs inflammatory changes - -ST rheumatism; --provided info handout on FMS for review --continue monthly massage therapy, continue low impact exercise like swimming at [employer] --TODAY for moderate pain bl troch bursa injections with 40mg triamcinolone each for symptom relief, medically necessary procedure --CONTINUE PT exercises she learned - -hx distant miscarriage; --CHECK APS labs to ensure not elevated - RTC 6-8 weeks or sooner PRN - 54 minutes = total time spent today on patients case day of encounter 49 minutes = face to face encounter, performing an exam/evaluation, counseling and educating patient about the diagnosis and plan, performing shared medical decision-making; 5 minutes = non face to face time spent, preparing for the visit, completing clinical documentation, obtaining and/or reviewing any outside history/data (PCP/GI encounters, labs/images), separately obtained history; ordering medications, tests, or procedures, independently interpreting results (not separately reported) and documenting in the EMR, and coordinating care (not separately reported); Please see additional documentation in this note for specific details. 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), borderline inflammatory joint features, but nondiagnostic exam, family history of RA (though question veracity of diagnosis), will complete the additional CTD workup; chronic neck and low back pain, more mechanical pain and does NOT sound inflammatory, PCP workup helpful with (-)HLA-B27 which is reassuring; comorbid cspine DDD, minor but likely neck pain related; query low level FMS/fibromyalgia features with elevated WPI/SS scores, daily pain, fatigue, hx anxiety/depression Current inflammatory disease activity = no synovitis, enthesitis, dactylitis, sacroiliitis - PLAN: -for (+) PANCHO; --counseled on abnormal lab, long differential, provided information handout, discussed the labs general information, can be abnormal in 5-10%, and up to 30% of 'normal' population (depending upon titer, age of patient), and the antibody signal has long differential of possible causes, including but not limited to autoimmune thyroid/liver disease, medications, multiple sclerosis, autoimmune inflammatory disease, connective tissue disease (i.e. SLE, RA, sjogrens, mixed connective tissue disease,scleroderma, etc), or preclinical autoimmune disease (therefore does not meet criteria for definitive connective tissue disease at this time but can develop in the future), medication induced (i.e. [place] Finhibitors, hydralazine, procainamide, minocycline, etc.), cancer, infections (hepatitis b/c, parasite, COVID infection, etc), vaccines, and importance of routine provider (primary care, etc) evaluations with interval evaluations for end organ involvement, signs and symptoms of active connective tissue/autoimmune disease, etc. --CHECK OLE, complement levels (CH50/C3/C4), UA to eval for blood/prot, ESR/CRP, basic labs to evalfor cytopenias, CCP (with fam hx of RA) - -cspine DDD; --counseled patient on below --weight loss, low impact exercise --diet: encouraged WFPB diet (whole foods plant based diet), initial counseling , visit website [email or web address] --consider prn OT (hands) --completed PT aquatics therapy 2024 for neck/back/hips, recommend continue at home exercises --analgesics, tylenol arthritis otc prn for pain is reasonable --PO NSAIDs: judicious use, consider meloxicam vs celebrex at follow up to use prn --[facility] or [facility] vs TTC pain management referral prn for neck pain --CHECK plain films bl hands/wrists/feet/BL SI joints to eval for OA vs inflammatory changes - -ST rheumatism; --provided info handout on FMS for review --continue monthly massage therapy, continue low impact exercise like swimming at [employer] --TODAY for moderate pain bl troch bursa injections with 40mg triamcinolone each for symptom relief, medically necessary procedure --CONTINUE PT exercises she learned - -hx distant miscarriage; --CHECK APS labs to ensure not elevated - RTC 6-8 weeks or sooner PRN - 54 minutes = total time spent today on patients case day of encounter 49 minutes = face to face encounter, performing an exam/evaluation, counseling and educating patient about the diagnosis and plan, performing shared medical decision-making; 5 minutes = non face to face time spent, preparing for the visit, completing clinical documentation, obtaining and/or reviewing any outside history/data (PCP/GI encounters, labs/images), separately obtained history; ordering medications, tests, or procedures, independently interpreting results (not separately reported) and documenting in the EMR, and coordinating care (not separately reported); Please see additional documentation in this note for specific details. 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 07/30/2024Encounter for screening for malignant neoplasm of colon (ICD-10 - Z12.11) Patient denies family history of colon cancer. Colonoscopy in September 2023 performed in [place] was unremarkable. Repeat colonoscopy in 10 years. 02/04/2025Encounter for screening for malignant neoplasm of colon (ICD-10 - Z12.11) Patient denies family history of colon cancer. Colonoscopy in September 2023 performed in [place] was unremarkable. Repeat colonoscopy in 10 years. 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 chronic neck and low back pain, more mechanical pain and does NOT sound inflammatory, PCP workup helpful with (-)HLA-B27. comorbid OA, cspine DDD, minor but likely neck pain related. query low level FMS/fibromyalgia features with elevated WPI/SS scores, daily pain, fatigue, hx anxiety/depression. microhematuria, unclear etiology. Current inflammatory disease activity = no synovitis, enthesitis, dactylitis, sacroiliitis; Mar25 (-)ESR/CRP - PLAN: -for (+) PANCHO; status =STABLE --monitor for CTD evolution, periodic update labs/autoimmune markers if more symptoms evolve (rashes, mouth/nasal sores, alopecia, inflammatory arthritis, etc.) - -OA, cspine DDD; status =SYMPTOMATIC --weight loss, low impact exercise --diet: encouraged WFPB diet (whole foods plant based diet), initial counseling , visit website [email or web address] --consider prn OT (hands) --completed PT aquatics therapy 2024 for neck/back/hips, recommend continue at home exercises --analgesics, tylenol arthritis otc prn for pain is reasonable --PO NSAIDs: judicious use, consider meloxicam vs celebrex at follow up to use prn --[facility] or [facility] vs TTC pain management referral prn for neck pain - -ST rheumatism; status =STABLE --previously provided info handout on FMS for review --counseled the importance of 3 tiered approach (exercise, sleep, BH/behavioral health) --exercise: continue low impact exercise like swimming at [facility] --sleep: improve restorative sleep, cont CPAP use --BH: LOW current recommendation, f/u PCP to discuss BH eval if indicated --continue monthly massage therapy --repeat prn for moderate pain bl troch bursa injections with 40mg triamcinolone each ( bl prior inj) --CONTINUE PT exercises she learned 2024 --FMS pharm therapy: per PCP, consider lyrica, gabapentin or cymbalta - -microhematuria; status =?STABLE --REPEAT UA to ensure normalizes, IF continues, she will f/u obgyn again who has urology provider she can see - -hx distant miscarriage; -- (-) APS labs - RTC PRN for BL troch bursa injections or other new sxs/concerns from patient or other providers standpoint - medical decision making: level 4 multiple chronic conditions addressed reviewed labs/images. 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 chronic neck and low back pain, more mechanical pain and does NOT sound inflammatory, PCP workup helpful with (-)HLA-B27. comorbid OA, cspine DDD, minor but likely neck pain related. query low level FMS/fibromyalgia features with elevated WPI/SS scores, daily pain, fatigue, hx anxiety/depression. microhematuria, unclear etiology. Current inflammatory disease activity= no synovitis, enthesitis, dactylitis, sacroiliitis; (-)ESR/CRP - PLAN: -for (+) PANCHO; status =STABLE --monitor for CTD evolution, periodic update labs/autoimmune markers if more symptoms evolve (rashes, mouth/nasal sores, alopecia, inflammatory arthritis, etc.) - -OA, cspine DDD; status =SYMPTOMATIC --weight loss, low impact exercise --diet: encouraged WFPB diet (whole foods plant based diet), initial counseling , visit website [email or web address] --consider prn OT (hands) --completed PT aquatics therapy 2024 for neck/back/hips, recommend continue at home exercises --analgesics, tylenol arthritis otc prn for pain is reasonable --PO NSAIDs: judicious use, consider meloxicam vs celebrex at follow up to use prn --[facility] or [facility] vs [facility] pain management referral prn for neck pain - -ST rheumatism; status =SYMPTOMATIC --previously provided info handout on FMS for review --counseled the importance of 3 tiered approach (exercise, sleep, BH/behavioral health) --exercise: continue low impact exercise like swimming at [facility] --sleep: improve restorative sleep, cont CPAP use --BH: LOW current recommendation, f/u PCP to discuss BH eval if indicated --continue monthly massage therapy --CONTINUE PT exercises she learned 2024 --FMS pharm therapy: per PCP, consider lyrica, gabapentin or cymbalta --TODAY repeat for moderate pain bl troch bursa injections with 40mg triamcinolone each for symptomrelief, medically necessary procedure ( bl prior inj) - -microhematuria; status =STABLE --uro: f/u Ambrosio, status post cysto, following yearly - RTC PRN for BL troch bursa injections or other new sxs/concerns from patient or other providers standpoint - medical decision making: level 4 multiple chronic conditions addressed flare bl troch bursa pain requiring procedure monitoring lab, clinical, imaging for autoimmune disease activity and end organ involvement 11/24/2024Greater trochanteric bursitis of right hip (ICD-10 - M70.61) Kathy is a very pleasant 44yo white female - Overall rheum impression= no definite systemic inflammatory disease at this time, (+)PANCHO likely false (+) with (-)OLE, C3/C4, 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 chronic neck and low back pain, more mechanical pain and does NOT sound inflammatory, PCP workup helpful with (-)HLA-B27. comorbid OA, cspine DDD, minor but likely neck pain related. query low level FMS/fibromyalgia features with elevated WPI/SS scores, daily pain, fatigue, hx anxiety/depression. microhematuria, unclear etiology. Current inflammatory disease activity= no synovitis, enthesitis, dactylitis, sacroiliitis; Jul25 (-)ESR/CRP - PLAN: -for (+) PANCHO; status =STABLE --monitor for CTD evolution, periodic update labs/autoimmune markers if more symptoms evolve (rashes, mouth/nasal sores, alopecia, inflammatory arthritis, etc.) - -OA, cspine DDD; status =SYMPTOMATIC --weight loss, low impact exercise --diet: encouraged WFPB diet (whole foods plant based diet), initial counseling , visit website [email or web address] --consider prn OT (hands) --completed PT aquatics therapy 2024 for neck/back/hips, recommend continue at home exercises --analgesics, tylenol arthritis otc prn for pain is reasonable --PO NSAIDs: judicious use, consider meloxicam vs celebrex at follow up to use prn --[facility] or [facility] vs [facility]TC pain management referral prn for neck pain - -ST rheumatism; status =SYMPTOMATIC --previously provided info handout on FMS for review --counseled the importance of 3 tiered approach (exercise, sleep, BH/behavioral health) --exercise: continue low impact exercise like swimming at [employer] --sleep: improve restorative sleep, cont CPAP use --BH: LOW current recommendation, f/u PCP to discuss BH eval if indicated --continue monthly massage therapy --CONTINUE PT exercises she learned 2024 --FMS pharm therapy: per PCP, consider lyrica, gabapentin or cymbalta --TODAY repeat for moderate pain bl troch bursa injections with 40mg triamcinolone each for symptomrelief, medically necessary procedure ( bl prior inj) - -microhematuria; status =STABLE --uro: f/u Ambrosio, status post cysto, following yearly - RTC PRN for BL troch bursa injections or other new sxs/concerns from patient or other providers standpoint - medical decision making: level 4 multiple chronic conditions addressed flare bl troch bursa pain requiring procedure monitoring lab, clinical, imaging for autoimmune disease activity and end organ involvement 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), borderline inflammatory joint features, but nondiagnostic exam, family history of RA (though question veracity of diagnosis), will complete the additional CTD workup; chronic neck and low back pain, more mechanical pain and does NOT sound inflammatory, PCP workup helpful with (-)HLA-B27 which is reassuring; comorbid cspine DDD, minor but likely neck pain related; query low level FMS/fibromyalgia features with elevated WPI/SS scores, daily pain, fatigue, hx anxiety/depression Current inflammatory disease activity = no synovitis, enthesitis, dactylitis, sacroiliitis - PLAN: -for (+) PANCHO; --counseled on abnormal lab, long differential, provided information handout, discussed the labs general information, can be abnormal in 5-10%, and up to 30% of 'normal' population (depending upon titer, age of patient), and the antibody signal has long differential of possible causes, including but not limited to autoimmune thyroid/liver disease, medications, multiple sclerosis, autoimmune inflammatory disease, connective tissue disease (i.e. SLE, RA, sjogrens, mixed connective tissue disease,scleroderma, etc), or preclinical autoimmune disease (therefore does not meet criteria for definitive connective tissue disease at this time but can develop in the future), medication induced (i.e. [place] Finhibitors, hydralazine, procainamide, minocycline, etc.), cancer, infections (hepatitis b/c, parasite, COVID infection, etc), vaccines, and importance of routine provider (primary care, etc) evaluations with interval evaluations for end organ involvement, signs and symptoms of active connective tissue/autoimmune disease, etc. --CHECK OLE, complement levels (CH50/C3/C4), UA to eval for blood/prot, ESR/CRP, basic labs to evalfor cytopenias, CCP (with fam hx of RA) - -cspine DDD; --counseled patient on below --weight loss, low impact exercise --diet: encouraged WFPB diet (whole foods plant based diet), initial counseling , visit website [email or web address] --consider prn OT (hands) --completed PT aquatics therapy 2024 for neck/back/hips, recommend continue at home exercises --analgesics, tylenol arthritis otc prn for pain is reasonable --PO NSAIDs: judicious use, consider meloxicam vs celebrex at follow up to use prn --[facility] or [facility] vs [facility] pain management referral prn for neck pain --CHECK plain films bl hands/wrists/feet/BL SI joints to eval for OA vs inflammatory changes - -ST rheumatism; --provided info handout on FMS for review --continue monthly massage therapy, continue low impact exercise like swimming at [employer] --TODAY for moderate pain bl troch bursa injections with 40mg triamcinolone each for symptom relief, medically necessary procedure --CONTINUE PT exercises she learned - -hx distant miscarriage; --CHECK APS labs to ensure not elevated - RTC 6-8 weeks or sooner PRN - 54 minutes = total time spent today on patients case day of encounter 49 minutes = face to face encounter, performing an exam/evaluation, counseling and educating patient about the diagnosis and plan, performing shared medical decision-making; 5 minutes = non face to face time spent, preparing for the visit, completing clinical documentation, obtaining and/or reviewing any outside history/data (PCP/GI encounters, labs/images), separately obtained history; ordering medications, tests, or procedures, independently interpreting results (not separately reported) and documenting in the EMR, and coordinating care (not separately reported); Please see additional documentation in this note for specific details. 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), borderline inflammatory joint features, but nondiagnostic exam, family history of RA (though question veracity of diagnosis), will complete the additional CTD workup; chronic neck and low back pain, more mechanical pain and does NOT sound inflammatory, PCP workup helpful with (-)HLA-B27 which is reassuring; comorbid cspine DDD, minor but likely neck pain related; query low level FMS/fibromyalgia features with elevated WPI/SS scores, daily pain, fatigue, hx anxiety/depression Current inflammatory disease activity = no synovitis, enthesitis, dactylitis, sacroiliitis - PLAN: -for (+) PANCHO; --counseled on abnormal lab, long differential, provided information handout, discussed the labs general information, can be abnormal in 5-10%, and up to 30% of 'normal' population (depending upon titer, age of patient), and the antibody signal has long differential of possible causes, including but not limited to autoimmune thyroid/liver disease, medications, multiple sclerosis, autoimmune inflammatory disease, connective tissue disease (i.e. SLE, RA, sjogrens, mixed connective tissue disease,scleroderma, etc), or preclinical autoimmune disease (therefore does not meet criteria for definitive connective tissue disease at this time but can develop in the future), medication induced (i.e. [place] Finhibitors, hydralazine, procainamide, minocycline, etc.), cancer, infections (hepatitis b/c, parasite, COVID infection, etc), vaccines, and importance of routine provider (primary care, etc) evaluations with interval evaluations for end organ involvement, signs and symptoms of active connective tissue/autoimmune disease, etc. --CHECK OLE, complement levels (CH50/C3/C4), UA to eval for blood/prot, ESR/CRP, basic labs to evalfor cytopenias, CCP (with fam hx of RA) - -cspine DDD; --counseled patient on below --weight loss, low impact exercise --diet: encouraged WFPB diet (whole foods plant based diet), initial counseling , visit website [email or web address] --consider prn OT (hands) --completed PT aquatics therapy 2024 for neck/back/hips, recommend continue at home exercises --analgesics, tylenol arthritis otc prn for pain is reasonable --PO NSAIDs: judicious use, consider meloxicam vs celebrex at follow up to use prn --[facility] or [facility] vs [facility] pain management referral prn for neck pain --CHECK plain films bl hands/wrists/feet/BL SI joints to eval for OA vs inflammatory changes - -ST rheumatism; --provided info handout on FMS for review --continue monthly massage therapy, continue low impact exercise like swimming at [facility] --TODAY for moderate pain bl troch bursa injections with 40mg triamcinolone each for symptom relief, medically necessary procedure --CONTINUE PT exercises she learned - -hx distant miscarriage; --CHECK APS labs to ensure not elevated - RTC 6-8 weeks or sooner PRN - 54 minutes = total time spent today on patients case day of encounter 49 minutes = face to face encounter, performing an exam/evaluation, counseling and educating patient about the diagnosis and plan, performing shared medical decision-making; 5 minutes = non face to face time spent, preparing for the visit, completing clinical documentation, obtaining and/or reviewing any outside history/data (PCP/GI encounters, labs/images), separately obtained history; ordering medications, tests, or procedures, independently interpreting results (not separately reported) and documenting in the EMR, and coordinating care (not separately reported); Please see additional documentation in this note for specific details. 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), borderline inflammatory joint features, but nondiagnostic exam, family history of RA (though question veracity of diagnosis), will complete the additional CTD workup; chronic neck and low back pain, more mechanical pain and does NOT sound inflammatory, PCP workup helpful with (-)HLA-B27 which is reassuring; comorbid cspine DDD, minor but likely neck pain related; query low level FMS/fibromyalgia features with elevated WPI/SS scores, daily pain, fatigue, hx anxiety/depression Current inflammatory disease activity = no synovitis, enthesitis, dactylitis, sacroiliitis - PLAN: -for (+) PANCHO; --counseled on abnormal lab, long differential, provided information handout, discussed the labs general information, can be abnormal in 5-10%, and up to 30% of 'normal' population (depending upon titer, age of patient), and the antibody signal has long differential of possible causes, including but not limited to autoimmune thyroid/liver disease, medications, multiple sclerosis, autoimmune inflammatory disease, connective tissue disease (i.e. SLE, RA, sjogrens, mixed connective tissue disease,scleroderma, etc), or preclinical autoimmune disease (therefore does not meet criteria for definitive connective tissue disease at this time but can develop in the future), medication induced (i.e. [place] Finhibitors, hydralazine, procainamide, minocycline, etc.), cancer, infections (hepatitis b/c, parasite, COVID infection, etc), vaccines, and importance of routine provider (primary care, etc) evaluations with interval evaluations for end organ involvement, signs and symptoms of active connective tissue/autoimmune disease, etc. --CHECK OLE, complement levels (CH50/C3/C4), UA to eval for blood/prot, ESR/CRP, basic labs to evalfor cytopenias, CCP (with fam hx of RA) - -cspine DDD; --counseled patient on below --weight loss, low impact exercise --diet: encouraged WFPB diet (whole foods plant based diet), initial counseling , visit website [email or web address] --consider prn OT (hands) --completed PT aquatics therapy 2024 for neck/back/hips, recommend continue at home exercises --analgesics, tylenol arthritis otc prn for pain is reasonable --PO NSAIDs: judicious use, consider meloxicam vs celebrex at follow up to use prn --[facility] or [facility] vs [facility] pain management referral prn for neck pain --CHECK plain films bl hands/wrists/feet/BL SI joints to eval for OA vs inflammatory changes - -ST rheumatism; --provided info handout on FMS for review --continue monthly massage therapy, continue low impact exercise like swimming at [employer] --TODAY for moderate pain bl troch bursa injections with 40mg triamcinolone each for symptom relief, medically necessary procedure --CONTINUE PT exercises she learned - -hx distant miscarriage; --CHECK APS labs to ensure not elevated - RTC 6-8 weeks or sooner PRN - 54 minutes = total time spent today on patients case day of encounter 49 minutes = face to face encounter, performing an exam/evaluation, counseling and educating patient about the diagnosis and plan, performing shared medical decision-making; 5 minutes = non face to face time spent, preparing for the visit, completing clinical documentation, obtaining and/or reviewing any outside history/data (PCP/GI encounters, labs/images), separately obtained history; ordering medications, tests, or procedures, independently interpreting results (not separately reported) and documenting in the EMR, and coordinating care (not separately reported); Please see additional documentation in this note for specific details. 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), borderline inflammatory joint features, but nondiagnostic exam, family history of RA (though question veracity of diagnosis), will complete the additional CTD workup; chronic neck and low back pain, more mechanical pain and does NOT sound inflammatory, PCP workup helpful with (-)HLA-B27 which is reassuring; comorbid cspine DDD, minor but likely neck pain related; query low level FMS/fibromyalgia features with elevated WPI/SS scores, daily pain, fatigue, hx anxiety/depression Current inflammatory disease activity = no synovitis, enthesitis, dactylitis, sacroiliitis - PLAN: -for (+) PANCHO; --counseled on abnormal lab, long differential, provided information handout, discussed the labs general information, can be abnormal in 5-10%, and up to 30% of 'normal' population (depending upon titer, age of patient), and the antibody signal has long differential of possible causes, including but not limited to autoimmune thyroid/liver disease, medications, multiple sclerosis, autoimmune inflammatory disease, connective tissue disease (i.e. SLE, RA, sjogrens, mixed connective tissue disease,scleroderma, etc), or preclinical autoimmune disease (therefore does not meet criteria for definitive connective tissue disease at this time but can develop in the future), medication induced (i.e. [place] Finhibitors, hydralazine, procainamide, minocycline, etc.), cancer, infections (hepatitis b/c, parasite, COVID infection, etc), vaccines, and importance of routine provider (primary care, etc) evaluations with interval evaluations for end organ involvement, signs and symptoms of active connective tissue/autoimmune disease, etc. --CHECK OLE, complement levels (CH50/C3/C4), UA to eval for blood/prot, ESR/CRP, basic labs to evalfor cytopenias, CCP (with fam hx of RA) - -cspine DDD; --counseled patient on below --weight loss, low impact exercise --diet: encouraged WFPB diet (whole foods plant based diet), initial counseling , visit website [email or web address] --consider prn OT (hands) --completed PT aquatics therapy 2024 for neck/back/hips, recommend continue at home exercises --analgesics, tylenol arthritis otc prn for pain is reasonable --PO NSAIDs: judicious use, consider meloxicam vs celebrex at follow up to use prn --[facility] or [facility] pain management referral prn for neck pain --CHECK plain films bl hands/wrists/feet/BL SI joints to eval for OA vs inflammatory changes - -ST rheumatism; --provided info handout on FMS for review --continue monthly massage therapy, continue low impact exercise like swimming at [facility] --TODAY for moderate pain bl troch bursa injections with 40mg triamcinolone each for symptom relief, medically necessary procedure --CONTINUE PT exercises she learned - -hx distant miscarriage; --CHECK APS labs to ensure not elevated - RTC 6-8 weeks or sooner PRN - 54 minutes = total time spent today on patients case day of encounter 49 minutes = face to face encounter, performing an exam/evaluation, counseling and educating patient about the diagnosis and plan, performing shared medical decision-making; 5 minutes = non face to face time spent, preparing for the visit, completing clinical documentation, obtaining and/or reviewing any outside history/data (PCP/GI encounters, labs/images), separately obtained history; ordering medications, tests, or procedures, independently interpreting results (not separately reported) and documenting in the EMR, and coordinating care (not separately reported); Please see additional documentation in this note for specific details. 07/30/2024Pain in right foot (ICD-10 - M79.671) Kathy is a very pleasant 43yo white female - initial encounter with this note technical writer and editor, Overall rheum impression = unlikely systemic inflammatory disease at this time, (+)PANCHO with low level CTD/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), borderline inflammatory joint features, but nondiagnostic exam, family history of RA (though question veracity of diagnosis), will complete the additional CTD workup; chronic neck and low back pain, more mechanical pain and does NOT sound inflammatory, PCP workup helpful with (-)HLA-B27 which is reassuring; comorbid cspine DDD, minor but likely neck pain related; query low level FMS/fibromyalgia features with elevated WPI/SS scores, daily pain, fatigue, hx anxiety/depression Current inflammatory disease activity = no synovitis, enthesitis, dactylitis, sacroiliitis - PLAN: -for (+) PANCHO; --counseled on abnormal lab, long differential, provided information handout, discussed the labs general information, can be abnormal in 5-10%, and up to 30% of 'normal' population (depending upon titer, age of patient), and the antibody signal has long differential of possible causes, including but not limited to autoimmune thyroid/liver disease, medications, multiple sclerosis, autoimmune inflammatory disease, connective tissue disease (i.e. SLE, RA, sjogrens, mixed connective tissue disease,scleroderma, etc), or preclinical autoimmune disease (therefore does not meet criteria for definitive connective tissue disease at this time but can develop in the future), medication induced (i.e. TN Finhibitors, hydralazine, procainamide, minocycline, etc.), cancer, infections (hepatitis b/c, parasite, COVID infection, etc), vaccines, and importance of routine provider (primary care, etc) evaluations with interval evaluations for end organ involvement, signs and symptoms of active connective tissue/autoimmune disease, etc. --CHECK OLE, complement levels (CH50/C3/C4), UA to eval for blood/prot, ESR/CRP, basic labs to evalfor cytopenias, CCP (with fam hx of RA) - -cspine DDD; --counseled patient on below --weight loss, low impact exercise --diet: encouraged WFPB diet (whole foods plant based diet), initial counseling , visit website [email or web address] --consider prn OT (hands) --completed PT aquatics therapy 2024 for neck/back/hips, recommend continue at home exercises --analgesics, tylenol arthritis otc prn for pain is reasonable --PO NSAIDs: judicious use, consider meloxicam vs celebrex at follow up to use prn --[facility] pain management referral prn for neck pain --CHECK plain films bl hands/wrists/feet/BL SI joints to eval for OA vs inflammatory changes - -ST rheumatism; --provided info handout on FMS for review --continue monthly massage therapy, continue low impact exercise like swimming at [facility] --TODAY for moderate pain bl troch bursa injections with 40mg triamcinolone each for symptom relief, medically necessary procedure --CONTINUE PT exercises she learned - -hx distant miscarriage; --CHECK APS labs to ensure not elevated - RTC 6-8 weeks or sooner PRN - 54 minutes = total time spent today on patients case day of encounter 49 minutes = face to face encounter, performing an exam/evaluation, counseling and educating patient about the diagnosis and plan, performing shared medical decision-making; 5 minutes = non face to face time spent, preparing for the visit, completing clinical documentation, obtaining and/or reviewing any outside history/data (PCP/GI encounters, labs/images), separately obtained history; ordering medications, tests, or procedures, independently interpreting results (not separately reported) and documenting in the EMR, and coordinating care (not separately reported); Please see additional documentation in this note for specific details. 07/30/2024History of miscarriage (ICD-10 - Z87.59) Kathy is a very pleasant 43yo white female - initial encounter with this note technical writer and editor, Overall rheum impression = unlikely systemic inflammatory disease at this time, (+)PANCHO with low level CTD/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), borderline inflammatory joint features, but nondiagnostic exam, family history of RA (though question veracity of diagnosis), will complete the additional CTD workup; chronic neck and low back pain, more mechanical pain and does NOT sound inflammatory, PCP workup helpful with (-)HLA-B27 which is reassuring; comorbid cspine DDD, minor but likely neck pain related; query low level FMS/fibromyalgia features with elevated WPI/SS scores, daily pain, fatigue, hx anxiety/depression Current inflammatory disease activity = no synovitis, enthesitis, dactylitis, sacroiliitis - PLAN: -for (+) PANCHO; --counseled on abnormal lab, long differential, provided information handout, discussed the labs general information, can be abnormal in 5-10%, and up to 30% of 'normal' population (depending upon titer, age of patient), and the antibody signal has long differential of possible causes, including but not limited to autoimmune thyroid/liver disease, medications, multiple sclerosis, autoimmune inflammatory disease, connective tissue disease (i.e. SLE, RA, sjogrens, mixed connective tissue disease,scleroderma, etc), or preclinical autoimmune disease (therefore does not meet criteria for definitive connective tissue disease at this time but can develop in the future), medication induced (i.e. TN Finhibitors, hydralazine, procainamide, minocycline, etc.), cancer, infections (hepatitis b/c, parasite, COVID infection, etc), vaccines, and importance of routine provider (primary care, etc) evaluations with interval evaluations for end organ involvement, signs and symptoms of active connective tissue/autoimmune disease, etc. --CHECK OLE, complement levels (CH50/C3/C4), UA to eval for blood/prot, ESR/CRP, basic labs to evalfor cytopenias, CCP (with fam hx of RA) - -cspine DDD; --counseled patient on below --weight loss, low impact exercise --diet: encouraged WFPB diet (whole foods plant based diet), initial counseling , visit website [email or web address] --consider prn OT (hands) --completed PT aquatics therapy 2024 for neck/back/hips, recommend continue at home exercises --analgesics, tylenol arthritis otc prn for pain is reasonable --PO NSAIDs: judicious use, consider meloxicam vs celebrex at follow up to use prn --[facility] pain management referral prn for neck pain --CHECK plain films bl hands/wrists/feet/BL SI joints to eval for OA vs inflammatory changes - -ST rheumatism; --provided info handout on FMS for review --continue monthly massage therapy, continue low impact exercise like swimming at [facility] --TODAY for moderate pain bl troch bursa injections with 40mg triamcinolone each for symptom relief, medically necessary procedure --CONTINUE PT exercises she learned - -hx distant miscarriage; --CHECK APS labs to ensure not elevated - RTC 6-8 weeks or sooner PRN - 54 minutes = total time spent today on patients case day of encounter 49 minutes = face to face encounter, performing an exam/evaluation, counseling and educating patient about the diagnosis and plan, performing shared medical decision-making; 5 minutes = non face to face time spent, preparing for the visit, completing clinical documentation, obtaining and/or reviewing any outside history/data (PCP/GI encounters, labs/images), separately obtained history; ordering medications, tests, or procedures, independently interpreting results (not separately reported) and documenting in the EMR, and coordinating care (not separately reported); Please see additional documentation in this note for specific details. 07/30/2024History of immunosuppression (ICD-10 - Z92.25) Kathy is a very pleasant 43yo white female - initial encounter with this note technical writer and editor, Overall rheum impression = unlikely systemic inflammatory disease at this time, (+)PANCHO with low level CTD/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), borderline inflammatory joint features, but nondiagnostic exam, family history of RA (though question veracity of diagnosis), will complete the additional CTD workup; chronic neck and low back pain, more mechanical pain and does NOT sound inflammatory, PCP workup helpful with (-)HLA-B27 which is reassuring; comorbid cspine DDD, minor but likely neck pain related; query low level FMS/fibromyalgia features with elevated WPI/SS scores, daily pain, fatigue, hx anxiety/depression Current inflammatory disease activity = no synovitis, enthesitis, dactylitis, sacroiliitis - PLAN: -for (+) PANCHO; --counseled on abnormal lab, long differential, provided information handout, discussed the labs general information, can be abnormal in 5-10%, and up to 30% of 'normal' population (depending upon titer, age of patient), and the antibody signal has long differential of possible causes, including but not limited to autoimmune thyroid/liver disease, medications, multiple sclerosis, autoimmune inflammatory disease, connective tissue disease (i.e. SLE, RA, sjogrens, mixed connective tissue disease,scleroderma, etc), or preclinical autoimmune disease (therefore does not meet criteria for definitive connective tissue disease at this time but can develop in the future), medication induced (i.e. TN Finhibitors, hydralazine, procainamide, minocycline, etc.), cancer, infections (hepatitis b/c, parasite, COVID infection, etc), vaccines, and importance of routine provider (primary care, etc) evaluations with interval evaluations for end organ involvement, signs and symptoms of active connective tissue/autoimmune disease, etc. --CHECK OLE, complement levels (CH50/C3/C4), UA to eval for blood/prot, ESR/CRP, basic labs to evalfor cytopenias, CCP (with fam hx of RA) - -cspine DDD; --counseled patient on below --weight loss, low impact exercise --diet: encouraged WFPB diet (whole foods plant based diet), initial counseling , visit website [email or web address] --consider prn OT (hands) --completed PT aquatics therapy 2024 for neck/back/hips, recommend continue at home exercises --analgesics, tylenol arthritis otc prn for pain is reasonable --PO NSAIDs: judicious use, consider meloxicam vs celebrex at follow up to use prn --[facility] or [facility] pain management referral prn for neck pain --CHECK plain films bl hands/wrists/feet/BL SI joints to eval for OA vs inflammatory changes - -ST rheumatism; --provided info handout on FMS for review --continue monthly massage therapy, continue low impact exercise like swimming at [facility] --TODAY for moderate pain bl troch bursa injections with 40mg triamcinolone each for symptom relief, medically necessary procedure --CONTINUE PT exercises she learned - -hx distant miscarriage; --CHECK APS labs to ensure not elevated - RTC 6-8 weeks or sooner PRN - 54 minutes = total time spent today on patients case day of encounter 49 minutes = face to face encounter, performing an exam/evaluation, counseling and educating patient about the diagnosis and plan, performing shared medical decision-making; 5 minutes = non face to face time spent, preparing for the visit, completing clinical documentation, obtaining and/or reviewing any outside history/data (PCP/GI encounters, labs/images), separately obtained history; ordering medications, tests, or procedures, independently interpreting results (not separately reported) and documenting in the EMR, and coordinating care (not separately reported); Please see additional documentation in this note for specific details. 06/14/2024OtherThank you Dr. Patel for the referral.I spent 30 minutes on this encounter.07/30/2024OtherThank you Dr. Patel for the referral.I spent 28 minutes on this encounter.02/04/2025Other Plan Of Treatment Pending Test Test Name Order Date PANCHO SUBTYPING (9) (dsDNA, RO 52, RO60, SSB, BUNCH, BIZTALK ARCHITECT, SCL70,JO1,CENTOMERE) 07/30/2024 Next Appt Details Provider Name:Sandy Rivera, 02/03/2026 09:00:00 AM, [address], [place] [address], [place], [address], Insurance Providers Payer Name Payer Address Payer Phone Subscriber Number Group Number Insured Name Patient Relationship to Insured Coverage Start Date Coverage End Date MMO [employer] [address] [place] [address] [id number] Kathy Freeman Self - patient is the insured 5 Medications Administered Medication Instructions Date of Administration Dosage Notes Triamcinolone 40 mg/ml mgTriamcinolone 40 mg/ml mg Medical (General) History Medical History History ICD Code cataracts high blood pressurediarrheadepressionnervous breakdownSurgical History Surgery Date(Month/Year) Partial Hysterectomy 2015 EGD 2021 [facility], 2023 [facility] Reason Date(Month/Year) see above
--- OUTSIDE RECORDS SUMMARY | 2025-03-31 07:55 | XMS_ITS | Clinical Summary ---
Author Organization [facility] Address [id number] [place] [address] Care Team Providers Care Salesperson Furs Name Role Phone Agapito Patel MD Primary Care Provider [phone] Allergies No known active allergies Medications MedicationSigDispense QuantityRefillsLast FilledStart DateEnd DateStatus cholecalciferol, vitamin D3, 2,000 units tablet Take 1 tablet (2,000 Units total) by mouth in the morning.Active estradioL (ESTRACE) 1 mg tablet Take 1 tablet (1 mg total) by mouth daily.Active FLUoxetine (PROzac) 40 mg capsule Take 1 capsule (40 mg total) by mouth in the morning.Active xvjqzr-wfxrnssu-dzdqtfu (CREON) 36,000-114,000- 180,000 unit capsule,delayed release(DR/EC) Take 1 capsule (36,000 units of lipase total) by mouth in the morning and 1 capsule (36,000 units of lipase total) at noon and 1 capsule (36,000 units of lipase total) before bedtime.Active metoprolol succinate XL (TOPROL XL) 25 mg 24 hr tablet Take 1 tablet (25 mg total) by mouth in the morning.11/01/2022ctive pantoprazole (PROTONIX) 40 mg EC tablet Take 1 tablet (40 mg total) by mouth every 12 (twelve) hours.Active rosuvastatin (CRESTOR) 5 mg tablet Take 1 tablet (5 mg total) by mouth in the morning.Active acetaminophen (TYLENOL EXTRA STRENGTH) 500 mg tablet Take 2 tablets (1,000 mg total) by mouth every 6 (six) hours as needed.Active cholestyramine (QUESTRAN) 4 g packet Take 1 packet (4 g total) by mouth daily.04/07/2024ctive famotidine (PEPCID) 20 mg tablet Take 1 tablet (20 mg total) by mouth nightly.03/25/2024ctive lisinopriL (PRINIVIL,ZESTRIL) 10 mg tablet Take 1 tablet (10 mg total) by mouth in the morning.ctive fluticasone (VERAMYST) 27.5 mcg/actuation nasal spray Administer 2 sprays into each nostril once daily.Active fexofenadine (JEANNE) 60 mg tablet Take 1 tablet (60 mg total) by mouth daily.Active MAGNESIUM GLYCINATE ORAL Take 200 mg by mouth daily.Active POTASSIUM GLUCONATE ORAL Take by mouth in the morning.Active omega3/dha/epa/fish oil/vit D3 (OMEGA-3 PLUS VITAMIN D3 ORAL) Take 700 mg by mouth daily.Active Active Problems ProblemNoted DateDiagnosed DateOvarian mass, right02/24/2025Renal mass02/24/2025 Auxdyoflwlf00/02/2025Esophageal psksqefgj91/20/2024GERD (gastroesophageal reflux disease)05/07/2024ancreatic ohxstlekjgsdy66/28/3090Usgrmbuuhd92/20/2023 Ujlkzqguosgl49/20/2023Seasonal allergic yeoboval49/20/2023 Encounters DateTypeDepartmentCare RkauCkaxlnmtaqm09/03/2025Telephone [facility] [address] [place] [address] Armida Branham RMA 02/23/2025 3:00 PM EDTOffice Visit [facility] [address] [facility] [place] [address] Donna Steen, INFANTRYMAN-HEAD BOOKKEEPER CRIS (obstructive sleep apnea) (Primary Dx); CPAP use counseling; Obesity (BMI 30-39.9); BMI 37.0-37.9, adult02/23/2025Travelfrom Last 3 Months Social History Tobacco UseTypesPacks/DayYears UsedDateSmoking Tobacco: NeverSmokeless Tobacco: Never Tobacco Cessation:Counseling Given: Not Answered Alcohol UseStandard Drinks/WeekCommentsNever0 (1 standard drink = 0.6 oz pure alcohol)ChildcareAnswerDate JpnoyqhnEjscdhjkxZfxtstk02/12/2019EmploymentAnswer Date XipnumqjQewsipqtnjHybmeha02/12/2019CommentsUnknownSex and Gender InformationValueDate RecordedSex Assigned at BirthNot on fileLegal SexFemale 12/29/2014 11:54 AM EDTGender IdentityNot on fileSexual OrientationNot on file Last Filed Vital Signs Vital SignReadingTime TakenCommentsBlood Ycmhqaph611/9210 3:01 PM EDT Nyfov5683 3:01 PM EDTTemperature--Respiratory Rate--Oxygen Olawnhdnnx01% 02/23/2025 3:01 PM EDTInhaled Oxygen Concentration--Rpugel995.1 kg (231 lb 11.2 oz)02/23/2025 3:01 PM YZGGbrrvu005.4 cm (5' 5.5 )02/23/2025 3:01 PM EDTBody Mass Index37.9702/23/2025 3:01 PM EDT Plan of Treatment DateTypeDepartmentCare Team (Latest Contact Info)Mfsqcizrhub54/07/2026 3:15 PM EDTOffice Visit [facility] [address] [facility] [place] [address] Donna Steen, INFANTRYMAN-HEAD BOOKKEEPER [address] [place] [address], [place] [id number] Health MaintenanceDue DateLast DoneCommentsDepression Tgbkrhpka96/11/1991Adult BMI Follow Up Plan1996COVID-19 Vaccine ( season)2025 09/20/2020, 08/23/2020Influenza Rdwkiqn60, 02/13/2021, 02/08/2020Adult BMI Ovqzmijjv32Tobacco Eluwtfyui30/02/2026 02/24/2025Pap Smear04/804/07/2024, 01/05/2020DTaP,Tdap and Td Vaccines (3 - Td or Tdap)/10/2023, 09/11/2009 Medical Devices Not on file Insurance Care Teams Team MemberRelationshipSpecialtyStart [place] [address] [place] [address] PCP - GeneralFamily Medicine06/18/23
--- OUTSIDE RECORDS SUMMARY | 2025-03-31 07:58 | XMS_ITS | CCD ---
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 Name Role Phone Elisa Antony Unavailable Mariya Finn Unavailable Ele Friend Unavailable MD Agapito Colmenares Primary Care Provider DO Surinder Del Castillo Attending Provider Malcolm Iglesias Unavailable DR RJ SHAH Attending Unavailable DR JR SHAH Consulting Unavailable DR RJ SHAH Admitting Unavailable MD Agapito Colmenares Primary Care Provider [phone] SHREYA Ivey Attending Provider MD Malcolm Iglesias Attending Provider MD Maxx Cornelius Attending Provider Self, Referral Attending Provider Unavailable MD Agapito Colmenares Primary Care Provider MD Agapito Colmenares Attending Provider MD Agapito Colmenares Primary Care Provider DO Surinder Del Castillo Attending Provider Agapito Colmenares MD Primary Care Provider [phone] YOLANDA SANTOYO Referring Unavailable AGAPITO COLMENARES Primary Care Unavailable Agapito Colmenares MD Primary Care Provider Rj Shah Attending Unavailable Agapito Colmenares Primary Care Unavailable Rj Shah Admitting Unavailable Agapito Colmenares Primary [facility]available [facility] Attending Unavailable Agapito Colmenares Admitting Unavailable Agapito Colmenares Primary Care Unavailable Agapito Colmenares Attending Unavailable DONNA STEEN Attending Unavailable AGAPITO COLMENARES Referring Unavailable AGAPITO COLMENARES Primary Care Unavailable AGAPITO COLMENARES Primary Care Unavailable YOLANDA SANTOYO Referring Unavailable NATASHA JOHNSON Attending Unavailable AGAPITO COLMENARES Primary Care Unavailable NATASHA JOHNSON Admitting Unavailable Agapito Colmenares MD Unavailable Agapito Colmenares MD Primary Care Provider [phone] Unavailable [facility] Colmen[facility] MD Primary Care Provider [phone] AGAPITO COLMENARES Referring Unavailable AGAPITO COLMENARES Primary Care Unavailable AGAPITO COLMENARES Referring Unavailable AGAPITO COLMENARES Primary Care Unavailable AGAPITO COLMENARES Primary Care Physician Maria Esther JUARES Attending Unavailable KATALINA WEIR Attending Unavailable Rj SHAH Referring Unavailable KATALINA WEIR Attending Unavailable KATALINA WEIR Admitting Unavailable Maria Esther JUARES Attending Unavailable RJ SHAH Attending Unavailable KATALINA WEIR Referring Unavailable RJ SHAH Referring Unavailable MARIA ESTHER JUARES Referring Unavailable IDA GUIDRY Attending Unavailable AI REYNOLDS Attending Unavailable AGAPITO COLMENARES Attending Unavailable AGAPITO COLMENARES Referring Unavailable AGAPITO COLMENARES Attending Unavailable DONNA STEEN Attending Unavailable AGAPITO COLMENARES Referring Unavailable AGAPITO COLMENARES Primary Care Unavailable Allergies Allergy ClassificationReported Allergen(s)Allergy TypeDate of OnsetReaction(s) Facility (1 source)DesonideDrug Gtilanb57-88-2297Twz [facility] (20 sources)Wound Dressing AdhesivePropensity to adverse reactions to drug 81-56-9898EFL [facility] (5 sources)Adhesive bandage; Translations: [Adhesive Bandage]Allergy to substanceTraumatic tear of skin (disorder), Eruption of skin (disorder)[facility] (2 sources)No Known Medication Allergies; Translations: [No Known Medication Allergies]Propensity to adverse reactions (disorder)[facility] RepositoryNEGATED: Highlighted row has been ruled out! (1 source)Drug allergyExec[facility] NEGATED: Highlighted row has been ruled out! (1 source)Drug allergyExec[facility] NEGATED: Highlighted row has been ruled out! (1 source)Drug allergyExec[facility] Medications Current Medications MedicationDrug Class(es)DatesSig (Normalized)Sig (Original)acetaminophen 500 mg oral tablet (19 sources)take 2 tablets by mouth every six hours as neededacetaminophen (TYLENOL EXTRA STRENGTH) 500 mg tablet Take 2 tablets (1,000 mg total) by mouth every6 (six) hours as needed. Activeamylase 594734 unt / lipase 26005 unt / protease 732618 unt delayed release oral capsule (16 sources)Start: 05-07-2022 End: 51-44-3632nnut 77075-995743 capsules by mouth three times daily at mealtime Ewhmoh-Kizslfro-Rnpebnl (Creon) 36,000-114,000- 180,000 unit Capsule,Delayed Release(Dr/Ec) Active 1 CAP PO Three times daily May 07, 2022 1:00am administer with meals and/or ceuvrgqkhxuy-slfbqbob-ucfvbci (CREON) 36,000-114,000- 180,000 unit capsule,delayed release(DR/EC) Take 1 capsule (36,000 units of lipase total) by mouth in the morning and 1 capsule (36,000 units of lipasetotal) at noon and 1 capsule (36,000 units of lipase total) before bedtime. Activeaspirin 81 mg delayed release oral tablet (12 sources)Platelet Aggregation Inhibitor, Nonsteroidal Anti-inflammatory Drug Start: 05-07-2022 End: 94-35-8531yuzn 81 mg by mouth once dailyAspirin Active 81 MG PO Daily May 07, 2022 1:00amcalcium chloride 0.0014 meq/ml / potassium chloride 0.004 meq/ml / sodium chloride 0.103 meq/ml / sodium lactate 0.028 meq/ml injectable solution (1 source)Start: 56-28-7047jzobrsiu ringers IV soln infusioncholecalciferol 0.125 mg oral tablet (20 sources)Vitamin DStart: 12-58-7432bvgw 1 tablet by mouth once daily Cholecalciferol (Vitamin D3) (Vitamin D3) 125 mcg (5,000 unit) Tablet Active 125 MCG PO Daily May 07, 2022 1:00amcholecalciferol (Vitamin D-3) 50 MCG (1999 UT) tablet 1 (one) time each day at the same time. Activetake 1 tablet by mouth in the morningcholecalciferol, vitamin D3, 2,000 units tablet Take 1 tablet (2,000 Units total) by mouth in the morning. ActiveCholecalciferol 50 MCG (1999 UT) TABS every 24 hours 0 Activecholestyramine resin 4000 mg powder for oral suspension (20 sources)Bile Acid SequestrantStart: 54-31-3144fklkzgkuhnqfvt 4 g/9 g Oral Pwdr 1 packet(s), Oral, Daily, 30 EA, Refill(s) 0 Start Date: 10/01/24 Status: Ordered Quantity: 30.0 Unit: EA Repeat number: 1Start: 81-29-1318aujc 1 dose by mouth once dailycholestyramine (QUESTRAN) 4 g packet Take 1 packet (4 g total) by mouth daily. 04/07/2024 Activeciprofloxacin 500 mg oral tablet (6 sources)Quinolone AntimicrobialStart: 30-21-2948Pjptx 500 mg Tab See Instructions, 1 tab po night prior to cystoscopy. 1 tab po following cystoscopy ., # 2 tab(s), Refills(s) 0, Pharmacy: [facility], 104, kg, 10/04/24 9:37:00 EDT, Weight Dosing Start Date: 10/04/24 Status: Ordered Quantity: 2.0 Unit: tab(s) Repeat number: 1Start: 08-26-2024 End: 17-05-8300upgq 1 tablet by mouth in the morningciprofloxacin (Cipro) 500 MG tablet Indications: Urinary Tract Infection Take 1 tablet (500 mg) by mouth in the morning and 1 tablet (500 mg) before bedtime. Do all this for 10 days. 20 tablet 08/26/2024 09/05/2024 ActiveCreon 32888 UNIT (14 sources)Start: 51-22-8450uelp 1 capsule by mouth three times dailyCreon 49021 UNIT 1 CAPSULE Orally THREE TIMES A DAY for 30 days September, Active estradiol 1 mg oral tablet (20 sources)EstrogenStart: 05-07-2022 End: 51-40-9299wrmzvbzlh (Estrace) 1 MG tablet Indications: Surgical menopause TAKE 1 TABLET DAILY 90 tablet 3 07/19/2024 Activetake 1 tablet by mouth in the morningestradioL (ESTRACE) 0.5 mg tablet Take 1 tablet (0.5 mg total) by mouth in the morning. Active End: 58-65-4874ireyafrws (Estrace) 0.5 MG tablet 1 (one) time each day at the same time. 0 06/26/2023 Discontinuedestradiol 0.5 mg / norethindrone acetate 0.1 mg oral tablet (5 sources)EstrogenStart: 02-24-2023 End: 16-70-6141pupepxhcg-norethindrone 0.5-0.1 MG tablet 02/24/2023 05/07/2024 Discontinued (Therapy completed)famotidine 20 mg oral tablet (20 sources)Histamine-2 Receptor AntagonistStart: 06-13-2023 End: 40-51-9674hwmk 1 tablet by mouth once dailyfamotidine (PEPCID) 20 mg tablet Take 1 tablet (20 mg total) by mouth nightly. 03/25/2024 Activefexofenadine hydrochloride 60 mg oral tablet (15 sources)Histamine-1 Receptor Antagonisttake 1 tablet by mouth once daily fexofenadine (JEANNE) 60 mg tablet Take 1 tablet (60 mg total) by mouth daily. ActiveAllegra ActiveFLUoxetine 40 mg oral capsule (20 sources)Serotonin Reuptake InhibitorStart: 97-08-6160JQNvjrhoex (PROzac) 40 MG capsule Indications: Medication refill TAKE 1 CAPSULE IN THE MORNING 90 ca psule 1 12/20/2024 ActiveStart: 42-70-2764EFPbeuadhc (PROzac) 40 MG capsule Indications: Medication refill TAKE 1 CAPSULE IN THE MORNING 90 capsule 1 06/22/2024 ActiveStart: 55-60-4171XABeiwubug (PROzac) 40 MG capsule Indications: Medication refill TAKE 1 CAPSULE IN THE MORNING 90 capsule 03/24/2024 Active Start: 48-22-5508mtap 40 mg by mouth once dailyFluoxetine Active 40 MG PO Daily May 07, 2022 1:00amPROzac Activefluticasone furoate 0.0275 mg/actuat metered dose nasal spray (2 sources)Corticosteroidtake 2 spray(s) nasal route once dailyfluticasone (VERAMYST) 27.5 mcg/actuation nasal spray Administer 2 sprays into each nostril once daily. Activelisinopril 10 mg oral tablet (4 sources)Angiotensin Converting Enzyme InhibitorStart: 02-16-2025 End: 10-44-6638lvjm 1 tablet by mouth in the morninglisinopriL (PRINIVIL,ZESTRIL) 10 mg tablet Take 1 tablet (10 mg total) by mouth in the morning. 02/16/2025 08/15/2025 ActiveMagnesium glycinate (2 sources)take 200 mg by mouth once dailyMAGNESIUM GLYCINATE ORAL Take 200 mg by mouth daily. Activemethocarbamol 750 mg oral tablet (5 sources)Muscle RelaxantStart: 05-07-2024 End: 90-21-9554yxmi 1 tablet by mouth in the morning, then take 1 tablet by mouth in the evening, then take 1 tablet by mouth at bedtimemethocarbamol (Robaxin) 750 MG tablet Indications: Lumbosacral strain, initial encounter Take 1 tablet (750 mg) by mouth in the morning and 1 tablet (750 mg) in the evening and 1 tablet (750 mg) before bedtime. 90 tablet 05/07/2024 06/14/2024 Discontinued (Therapy completed)24 hr metoprolol succinate 25 mg extended release oral tablet (20 sources)beta-Adrenergic BlockerStart: 10-78-6024rrnx 1 tablet by mouth once dailymetoprolol succinate 25 mg ER Tab 25 mg = 1 tab(s), Oral, Daily, # 90 tab(s), Refills(s) 0 Start Date: 10/01/24 Status: Ordered Quantity: 90.0 Unit: tab(s) Repeat number: 1Start: 83-44-4693moys 1 tablet by mouth once daily metoprolol succinate (TOPROL XL) 25 MG extended release tablet Take 1 tablet by mouth daily 0 02/25/2023 ActiveStart: 99-11-7941eogw 1 tablet by mouth every twenty-four hours in the morningmetoprolol succinate XL (TOPROL XL) 25 mg 24 hr tablet Take 1 tablet (25 mg total) by mouth in the morning. 11/01/2022 Active Start: 02-94-0994civg 25 mg by mouth once dailyMetoprolol Succinate Active 25 MG PO Daily May 07, 2022 1:00amMetoprolol Succinate Activenitrofurantoin, macrocrystals 25 mg / nitrofurantoin, monohydrate 75 mg oral capsule (6 sources)Nitrofuran AntibacterialStart: 94-44-0712hhub 1 capsule by mouth every twelve hoursMacrobid 100 MG 1 cap(s) Orally 2 times a day for 5 day(s) May, ActiveStart: 57-48-2756insm 1 capsule by mouth every twelve hours Macrobid 100 MG 1 cap(s) Orally bid for 5 day(s) Feb, Activeomega-3 polyunsaturated fatty acids 700 mg with Vitamin D oral capsule (3 sources)Start: 58-03-7180tpgv 1 capsule by mouth once dailyomega-3 polyunsaturated fatty acids 700 mg with Vitamin D oral capsule 1 cap, Oral, Daily Start Date: 10/04/24 Status: Ordered Repeat number: 2sddfw7/dha/epa/fish oil/vit D3 (OMEGA-3 PLUS VITAMIN D3 ORAL) (2 sources)take 700 mg by mouth once dailyomega3/dha/epa/fish oil/vit D3 (OMEGA- 3 PLUS VITAMIN D3 ORAL) Take 700 mg by mouth daily. Activepantoprazole 40 mg delayed release oral tablet (20 sources)Proton Pump InhibitorStart: 92-23-5490qnvn 1 tablet by mouth twice dailyPantoprazole [address] Tab 40 mg = 1 tab(s), Oral, BID, Refills(s) 0 Start Date: 10/01/24 Status: Ordered Repeat number: 1Start: 78-82-5831rnicltpflbks (PROTONIX) 40 MG tablet Indications: Chronic GERD TAKE 1 TABLET TWICE A DAY 60 tablet 11 09/15/2023 ActiveStart: 39-36-9301xigc 40 mg by mouth once daily Pantoprazole Active 40 MG PO Daily May 07, 2022 1:00amStart: 03-01-2019 take 1 tablet by mouth every twelve hoursPantoprazole Sodium 40 MG 1 tablet Orally twice a day for 90 days Feb, Activephenazopyridine hydrochloride 200 mg oral tablet (6 sources)Start: 51-27-5437fncf 1 tablet by mouth every eight hoursPyridium 200 MG 1 tablet after meals Orally Three times a day for 2 day(s) May, ActiveStart: 00-32-0281gaew 2 tablets by mouth every eight hoursPyridium 100 MG 2 tablets after meals Orally Three times a day for 2 day(s) Feb, Active Potassium gluconate (2 sources)POTASSIUM GLUCONATE ORAL Take by mouth in the morning. Active predniSONE 10 mg oral tablet (20 sources)Start: 11-23-2024 End: 05-23-2812pranuyTXGT (Deltasone) 10 MG tablet Indications: Plantar fasciitis, left , Inflammatory heel pain, left , Difficulty walking 1 tablet twice daily x 7 days; followed by 1 tablet daily as directed until complete 21 tablet 11/23/2024 02/16/2025 DiscontinuedStart: 05-07-2024 End: 70-96-4373guxifbHTQT (Deltasone) 10 MG tablet Indications: Lumbosacral strain, initial encounter 6 TABS everyday X 3 DAYS, 4 TABS every day X 3 DAYS, 2 TABS every day X 3 DAYS, 1 TAB every day X 3 DAYS 39 tablet 05/07/2024 06/14/2024 Discontinued (Therapy completed)Start: 09-11-2023 End: 48-61-0090fcrkqhTPNL (Deltasone) 10 MG tablet Indications: Synovitis of right ankle , Pain in joint of right ankle , Difficulty walking 1 tablet twice daily x 7 days; followed by 1 tablet daily as directed until complete 21 tablet 09/11/2023 05/07/2024 Discontinued (Therapy completed)predniSONE Not-Taking rifAXIMin 550 mg oral tablet (6 sources)Rifamycin AntibacterialStart: 03-19-2024 End: 85-91-1603gtvx 1 tablet by mouth in the morning, then take 1 tablet by mouth in the evening, then take 1 tablet by mouth at bedtimerifAXIMin (Xifaxan) 550 MG tablet Take 1 tablet by mouth in the morning and 1 tablet in the evening and 1 tablet before bedtime. 03/19/2024 06/14/2024 Discontinued (Therapy completed)rosuvastatin calcium 5 mg oral tablet (20 sources)HMG-CoA Reductase InhibitorStart: 41-80-8469zzlbdtolsdxl (Crestor) 5 MG tablet Indications: Medication refill TAKE 1 TABLET IN THE MORNING 90 tablet 1 12/02/2024 ActiveStart: 27-01-9635uvwpbvuirrjr (Crestor) 5 MG tablet Indications: Medication refill TAKE 1 TABLET IN THE MORNING 90 tablet 3 12/26/2023 ActiveCrestor ActiveVitamin D3 (13 sources)Vitamin D3 ActiveVitamin D3 1000 intl units (25 mcg) Tab (3 sources)Start: 14-81-1383cseb 1 tablet by mouth once dailyVitamin D3 1000 intl units (25 mcg) Tab 25 mcg = 1 tab(s), Oral, Daily Start Date: 10/04/24 Status: Ordered Repeat number: 1 Completed/Discontinued Medications MedicationDrug Class(es)DatesSig (Normalized)Sig (Original)dicyclomine hydrochloride 20 mg oral tablet (14 sources)AnticholinergicStart: 43-14-9958ndje 1 tablet by mouth every twelve hoursDicyclomine HCl 20 MG 1 tablet Orally TWICE A DAY for 30 days Feb, Not-Cepndy96 hr hyoscyamine sulfate 0.375 mg extended release oral tablet (14 sources)Start: 45-27-6180iivm 1 tablet by mouth every twelve hoursLevbid 0.375 MG 1 tablet Orally every 12 hrs for 30 day(s) Jul, Not-Taking loratadine 10 mg oral tablet (14 sources)take 1 tablet by mouth every twenty-four hoursClaritin 10 MG 1 tablet Orally Once a day OTC Not-TakingPhentermine (14 sources)Sympathomimetic Amine AnorecticAdipex-P Not-TakingraNITIdine (14 sources)Histamine-2 Receptor AntagonistRanitidine HCl Not-Takingsertraline 100 mg oral tablet (20 sources)Serotonin Reuptake InhibitorStart: 03-03-2019 End: 49-64-4840zmdw 1 tablet by mouth once dailySertraline (Zoloft) 100 mg Tablet Discontinued 100 MG PO Daily March 03, 2019 12:00am May 07, 2022 2:16pmtake 2 tablets by mouth every twenty-four hoursSertraline HCl 100 MG 2 tablet Orally Once a day Not-Taking Problems Active Problems Problem ClassificationProblemDateDocumented DateEpisodic/ChronicAbdominal pain (2 sources)Pain in female pelvis; Translations: [Pelvic and perineal pain] 56-88-6389NiawzmymSyqrgwzijgislh/social admission (2 sources)Patient encounter status; Translations: [Other specified counseling] 97-37-5791DxqdgkrjFqasnzeck of lipid metabolism (20 sources)Hypercholesterolemia; Translations: [Pure hypercholesterolemia, unspecified]Onset: 120497-80-6075OvsohalObjvywtkzm disorders (20 sources)Gastroesophageal reflux disease; Translations: [Gastro-esophageal reflux disease without esophagitis]Onset: 01-30-2022 Resolved: 533038-18-9628YdjxwagOomsednox hypertension (20 sources)Hypertensive disorder; Translations: [Essential (primary) hypertension]Onset: 037768-59-6048KcrovrcXiupgzpstjkto symptoms and ill- defined conditions (13 sources)Dysuria; Translations: [Hematuria, unspecified]Onset: 03-06-2021 Resolved: 97-92-3679LouorxqsKmeorndiedagm and screening for infectious disease (6 sources)Contact with and (suspected) exposure to other viral communicable diseases; Translations: [Encounter for screening for human papillomavirus (HPV)] Onset: 02-14-2021 Resolved: 85-91-0468IoggkwzqTzdkhqakki disorders (3 sources)Premature bqitwxbyd74-84-0243ZcirzqrNsik disorders (20 sources)Depressive disorder; Translations: [Depression]Onset: 11-12-2022 95-08-9549GnegqmeNvwvqavswzaue gastroenteritis (4 sources)Chronic diarrhea; Translations: [Noninfective gastroenteritis and colitis, unspecified]65-51-2308QurvfjowJunssvclhjok breast conditions (3 sources)Cyst of idwdom39-56-2415YhlyxqjyBodyx connective tissue disease (2 sources)Plantar fasciitis of left foot; Translations: [Plantar fascial fibromatosis]56-09-2964SqewiucuMekss connective tissue disease (2 sources)Heel pain; Translations: [Pain in left foot]81-29-9831WceilioyTrctg connective tissue disease (2 sources)Calcaneal spur of left foot; Translations: [Calcaneal spur, left foot]52-50-3521XdtlikraDtcfn diseases of kidney and ureters (2 sources)Disorder of kidney and/or ureter; Translations: [Other specified disorders of kidney and ureter]Onset: 85-44-6622NmtoknzPnrlb diseases of kidney and ureters (3 sources)Renal mass; Translations: [Other specified disorders of kidney and ureter]Onset: 870028-63-4976ZbunsjaRgqkw diseases of kidney and ureters (3 sources)Ureterocele; Translations: [Other specified disorders of kidney and ureter]Onset: 254449-99-3877EmktczrUemer gastrointestinal disorders (14 sources)Irritable bowel syndrome with diarrhea; Translations: [Irritable bowel syndrome with diarrhea]ChronicOther gastrointestinal disorders (14 sources)Incontinence of feces; Translations: [Full incontinence of feces] EpisodicOther gastrointestinal disorders (7 sources)Difficulty swallowing; Translations: [Dysphagia, unspecified]Episodic Other gastrointestinal disorders (1 source)Other fecal abnormalities; Translations: [Other fecal abnormalities] Onset: 76-20-3424GrbvykwmOvupx gastrointestinal disorders (5 sources)Mass of right ovary; Translations: [Other noninflammatory disorders of ovary, fallopian tube and broad ligament]Onset: 286816-11-9890Ruyvgbot Other nervous system disorders (20 sources)Difficulty walking; Translations: [Difficulty in walking, not elsewhere classified]Onset: 704063-44-4712EdtskseXrgwn non-traumatic joint disorders (2 sources)Bilateral rotator cuff arthropathy of shoulder; Translations: [Other specific arthropathies, not elsewhere classified, right shoulder]05-07-2024 ChronicOther non-traumatic joint disorders (2 sources)Joint pain; Translations: [Pain in unspecified joint]05-07-2024 EpisodicOther non-traumatic joint disorders (2 sources)Hip pain; Translations: [Pain in right hip]89-41-7875MfpsicrrOryax nutritional; endocrine; and metabolic disorders (20 sources)Obesity; Translations: [Obesity, unspecified]Onset: 11-12-2022 99-38-2630SjdvrcfUkrcu nutritional; endocrine; and metabolic disorders (4 sources)Obesity caused by energy imbalance; Translations: [Class 1 obesity due to excess calories with serious comorbidity and body mass index (BMI) of 31.0 to 31.9 in adult]93-52-2728FbesgyiOhyef nutritional; endocrine; and metabolic disorders (2 sources)Body mass index 30+ - obesity; Translations: [Obesity, unspecified] 93-08-2899WvalpopTtbdj screening for suspected conditions (not mental disorders or infectious disease) (8 sources)Encounter for screening for malignant neoplasm of cervix; Translations: [Patient encounter status]Onset: 24-32-0609ChkrzgolTwnix skin disorders (2 sources)Night sweats; Translations: [Generalized hyperhidrosis]05-07-2024 EpisodicOther upper respiratory disease (20 sources)Seasonal allergic rhinitis; Translations: [Other seasonal allergic rhinitis]Onset: 048263-04-1553PfmqgloBhtimpm cyst (2 sources)Cyst of ovary; Translations: [Unspecified ovarian cyst, unspecified side]02-23-3551FyunieljJaqowflx codes; unclassified (20 sources)Unrefreshed by sleep; Translations: [Other sleep disorders]Onset: 020928-95-2107JtimykdExsilryy codes; unclassified (1 source)Sleep apnea, unspecified; Translations: [Sleep apnea, unspecified] Onset: 64-97-8104NmgqeggEttxndgs codes; unclassified (2 sources)Sleep apnea; Translations: [Sleep apnea, unspecified]09-29-2023 ChronicResidual codes; unclassified (1 source)Family history of other diseases of the digestive system; Translations: [Family history of other diseases of the digestive system]Onset: 52-27-1892HsacrvqxUaxliyil codes; unclassified (3 sources)Unrefreshed by honcm05-54-9333SvjbglsmBjpbahukcyp; intervertebral disc disorders; other back problems (3 sources)Inflammation of sacroiliac joint; Translations: [Sacroiliitis, not elsewhere classified]Onset: 154338-67-9809OkjlhlsHdgtkvqqzxk; intervertebral disc disorders; other back problems (4 sources)Chronic neck pain; Translations: [Cervicalgia]20-57-6943Bgxgbftv Sprains and strains (2 sources)Lumbosacral strain; Translations: [Strain of muscle, fascia and tendon of lower back, initial encounter]34-23-3441GkdkvazsCwyiowqbxyhu (1 source)Pain in left shoulder; Translations: [Pain in left shoulder]Onset: 59-36-8461Dkpqmho tract infections (2 sources)Acute cystitis with hematuria; Translations: [Urinary tract infection, site not specified]Onset: 03-06-2021 Resolved: 42-81-3121Vhtmkefy Past or Other Problems Problem ClassificationProblemDateDocumented DateEpisodic/ChronicOther gastrointestinal disorders (20 sources)Irritable bowel syndrome; Translations: [Mixed irritable bowel syndrome]Onset: 11-12-2022 Resolved: 664651-52-8303GygiswtGvfir gastrointestinal disorders (3 sources)Dysphagia, unspecified; Translations: [Dysphagia, unspecified]Onset: 17-11-5226XduiaiddScrug gastrointestinal disorders (20 sources)Dysphagia; Translations: [Dysphagia, unspecified]Onset: 11-12-2022 74-25-2559JiozrfuwWnxpu gastrointestinal disorders (2 sources)Esophageal dysphagia; Translations: [Other dysphagia]Onset: 878735-24-4093SwnbuuxzJesvu injuries and conditions due to external causes (20 sources)Muscle strain; Translations: [Other injury of unspecified body region, initial encounter]Onset: 11-12-2022 Resolved: 983176-55-6263KhhdkrqzEzjyw upper respiratory infections (1 source)Acute upper respiratory infection, unspecified; Translations: [Viral upper respiratory illness J06.9]Onset: 02-14-2021 Resolved: 38-28-7157NkdvjbmbVtrgmaqoxi disorders (not diabetes) (20 sources)Pancreatic insufficiency; Translations: [Other specified diseases of pancreas]Onset: 713910-84-7497YbnpgqzaWsjdboyn codes; unclassified (20 sources)Obstructive sleep apnea syndrome; Translations: [Obstructive sleep apnea (adult) (pediatric)]Onset: 11-12-2022 Resolved: 262140-79-6815DuhvdfgIajhmwyeizin (10 sources)Unclassified (2 sources)Exposure to COVID-19 virus Z20.822Onset: 08-07-2022 Resolved: 12-30-2021 Results Test NameValueInterpretationReference RangeFacilityCT UROGRAM W AND WO IV CONTRASTon [id number] UROGRAM W AND WO IV CONTRAST10/29/2024 1:21 PM Exam: CT UROGRAM W AND WO IV CONTRAST Reason for study: Abnormal US, renal mass, hematuria, no pain Technical: Spiral images are obtained through the abdomen and pelvis IV Contrast: Before and after Isovue 300-100 cc IV Prior comparative studies: Ultrasound dated 10/12/2024 Abdomen: Lower Chest: Lung bases are clear. Heart is not enlarged. No coronary calcifications are demonstrated. Liver: Unremarkable. Spleen: Unremarkable. Gallbladder/Biliary system: Unremarkable. No biliary dilatation seen. Pancreas: Unremarkable Adrenals: Unremarkable and symmetric. Kidneys: No hydronephrosis is apparent. There is a 3.4 x 2.7 x 2.4 cm nonenhancing fluid density cyst in the left upper kidney. No mass is apparent in the left kidney. There is a mild dromedary hump which could contribute to the recent ultrasound appearance. There is a 5 mm calcification in the right upper pole collecting system. Retroperitoneum: Unremarkable. Aorta is normal in caliber. No adenopathy identified. Bowel: No dilatation, wall or fold thickening identified. Cecum is mobile and positioned medially. Appendix appears normal. Peritoneum/Mesentery: Clear Pelvis: No mass, adenopathy or free fluid is apparent. Bladder is unremarkable. Inguinal regions are clear.Uterus is absent. There is a 3.5 x 2.6 cm fluid density cyst in the left ovary without calcification or fat. Right ovary is diminutive. No adenopathy or free fluid is apparent. Impression : 1. No left renal mass is demonstrated. Previous ultrasound appearance relates to a dromedary hump (normal variant). 2. Fluid density left ovarian cyst measuring 3.5 x 2.6 cm. 3. Intrarenal calculus right upper pole kidney measuring 5 mm, nonobstructing. 4. Right simple appearing renal cyst, Bosniak type I.NormalNot Available Ambulatory Visit Summaryon [id number] Visit SummaryAmbulatory Visit Summary CHEPELillian JELANI Gerardo :1980 Visit Date:10/19/2024 Ambulatory Visit Instructions Your Diagnosis Microhematuria Renal mass, Ureterocele Tests Performed CT Urogram -- Results Pending -- Please visit your patient portal for your results or contact your primary care physician. Your Care Team Attending Physician - Maria Esther JUARES MD Primary Care Physician - DARRIAN HARPER, AGAPITO Rubin This Is Your Medications List ciprofloxacin (Cipro 500 mg Tab) Contact prescribing physician if questions or concerns cholecalciferol (Vitamin D3 1000 intl units (25 mcg) Tab) cholestyramine (cholestyramine 4 g/9 g Oral Pwdr) estradiol (estradiol 1 mg Tab) famotidine (famotidine 20 mg Tab) fluoxetine (FLUoxetine 40 mg Cap) metoprolol (metoprolol succinate 25 mg ER Tab) omega-3 polyunsaturated fatty acids (omega-3 polyunsaturated fatty acids 700 mg with Vitamin D oralcapsule) pantoprazole (Pantoprazole [address] Tab) rosuvastatin (rosuvastatin 5 mg Tab) Procedures Performed Cystoscopy (10/19/2024), Colonoscopy (2023), Partial hysterectomy (05/25/2015), Ovary. Discharge Vitals Heart Rate (Peripheral) 70 Respiratory Rate 18 Blood Pressure 128/68 Height 165.5 cm Height 65 in Weight 104 kg Weight 229.28 lb BMI 37.97 What to do next You Need to Schedule the Following Appointments Follow Up with MOR HARPER, Maria Esther Salguero, RADHA When: Where: [facility] [address], [place] [id number]- Medications What How Much When Instructions Unchanged ciprofloxacin (Cipro 500 mg Tab) See instructions 1 tab po night prior to cystoscopy. 1 tab po following cystoscopy. Unchanged cholecalciferol (Vitamin D3 1000 intl units (25 mcg) Tab) 1 Tablets By Mouth Every day Contact prescribing physician if questions or concerns Unchanged cholestyramine (cholestyramine 4 g/ 9 g Oral Pwdr) 1 Packets By Mouth Every day Contact prescribing physician if questions or concerns Unchanged estradiol (estradiol 1 mg Tab) 1 Tablets By Mouth Every day Contact prescribing physicianif questions or concerns Unchanged famotidine (famotidine 20 mg Tab) 1 Tablets By Mouth Every day Contact prescribing physician if questions or concerns Unchanged fluoxetine (FLUoxetine 40 mg Cap) 1 Capsules By Mouth Every day Contact prescribing physician if questions or concerns Unchanged metoprolol (metoprolol succinate 25 mg ER Tab) 1 Tablets By Mouth Every day Contact prescribing physician if questions or concerns Unchanged omega-3 polyunsaturated fatty acids (omega-3 polyunsaturated fatty acids 700 mg with Vitamin D oral capsule) 1 cap By Mouth Every day Contact prescribing physician if questions or concerns Unchanged pantoprazole (Pantoprazole [address] Tab) 1 Tablets By Mouth 2 times a day Contact prescribing physician if questions or concerns Unchanged rosuvastatin (rosuvastatin 5 mg Tab) 1 Tablets By Mouth Every day Contact prescribing physician if questions or concerns Medications and Immunizations Administered Given lidocaine Top 2% Gel w/Appl 11 mL, 11 mL, Topical. For: Microhematuria, Renal mass, Ureterocele Allergies Adhesive Bandage (Skin tear, Rash) No Known Medication Allergies Problems Ongoing - Any problem that you are currently receiving treatment for. Benign cyst of left breast Depression Difficulty walking Dysphagia Early menopause GERD (gastroesophageal reflux disease) Gross hematuria Hypercholesteremia Hypertension Microhematuria Obesity CRIS (obstructive sleep apnea) Ovarian mass, right Pancreatic insufficiency Renal mass Seasonal rhinitis Unrefreshed by sleep Ureterocele Historical - Any problem that you are no longer receiving treatment for. Irritable bowel Muscle strain Obstructive sleep apnea syndrome Patient Survey You may receive a survey via text or e-mail asking about your office visit. Please share your experience with us by completing your survey. We appreciate your feedback and thank you for choosing us for your care. Education Materials Renal Mass A renal mass is an abnormal growth in the kidney. It may be found while performing an MRI, CT scan,or ultrasound to evaluate other problems of the abdomen. A renal mass that is cancerous (malignant)may grow or spread quickly. Others are not cancerous (benign). Renal masses include: ??? Tumors. These may be malignant or benign. ? The most common type of kidney cancer in adults is renal cell carcinoma. In children, the most common type of kidney cancer is Wilms tumor. ? The most common benign tumors of the kidney include renal adenomas, oncocytomas, and angiomyolipoma(AML). ??? Cysts. These are fluid-filled sacs that form on or in the kidney. What are the causes? Certain types of cancers, infections, or injuries can cause a renal mass. It is not always known what causes a cyst to develop in or on the kidney. What are the signs (more content not included)...[facility] Noteon [id number] Office/Clinic NoteUrology Office/Clinic Note Chief Complaint Cysto HPI Staff cysto- cytol done. Ck US History of Present Illness Tests reviewed: cytology, LINDY I have reviewed the previous health record information and history for this patient from Frannie Weir PA-C. I have reviewed and verified the staff HPI to be accurate for this encounter. Review of Systems PHQ Score Initial Depression Screen Score: 0 SCORE ROS - Provider Constitutional: denies weight loss, denies hot flashes. Eyes: denies eye problems. Gastrointestinal: denies nausea, denies vomiting. Cardiovascular: denies chest pain or angina. Integumentary: no dryness Musculoskeletal: denies musculoskeletal symptoms. ENMT: denies otolaryngeal symptoms. Respiratory: no shortness of breath. Heme/Lymph: denies easy bleeding tendency, denies easy bruising tendency. Psychiatric: no confusion, no anxiety. Genitourinary: See HPI. Physical Exam Vitals & Measurements HR: 70(Peripheral) RR: 18 BP: 128/68 HT: 165.5 cm HT: 65 in WT: 104 kg WT: 229.28 lb BMI: 37.97 General Appearance: alert, no distress, well nourished, well developed female. Procedure Operative Information Anesthesia Type: Local Procedure: Local Cystoscopy Complications: None Surgical risks, benefits, details of the procedure have been explained to the patient. Full informed consent has been obtained. Intraoperative Information Prepped: Patient is brought back to the endoscopy suite. Patient is placed in modified dorso/lithotomy position. Patient prepped in the usual fashion with Betadine solution. 2% Xylocaine Jelly is placed per Urethra. After waiting several minutes, the Cystoscope is introduced. The Urethra is: Normal The Bladder: _No tumors or stones, small left ureterocele, Trabeculated: None (0) The Ureteral orifices: Show efflux of clear urine Specimens Removed: None Removal: Cystoscope is removed. The patient tolerated it well. Postoperative Information Patient is discharged home with antibiotic coverage. Follow up arranged. Assessment/Plan CAITLIN pt. 1. Microhematuria (R31.29: Other microscopic hematuria) Questionable gross hematuria - sees orange-brown on toilet paper when she wipes intermittently. 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 Cytology neg. Pt had IO cysto today wo complications. 2. Renal mass, (N28.89: Other specified disorders of kidney and ureter) LINDY 10/12/24 Noms - An iso to hypoechoic partially exophytic 4.96 x 4.17 x 3.45 cm mass LSP. Possible mild posterior acoustic enhancement. There is also a RSP renal sinus 2.3 x 2.9 x 2.5 cm anechoic nodule. Enhancement of the posterior wall and posterior acoustic enhancement. Reviewed imaging with pt. Follow up after CTU or sooner if needed. Pt understands and agrees with plan. -Schedule CTU Ureterocele See procedure section. Follow-up With When Contact Information MOR HARPER, Maria Esther Salguero, COUNTS INCLUDE [facility] BEDS AT [facility] [address], [place] [address]- Additional Instructions: f/u after CTU complete Patient Education Renal Mass I, Nicky Elliott, personally scribed for Dr. Juares on 10/19/2024 11:47:08. . Documentation recorded by the scribe, Nicky Elliott, accurately reflects the services(s) I performed and decisions made by me. Authenticated by Dr. Juares on 10/19/2024 11:48:22. Problem List/Past Medical History Ongoing Benign cyst of left breast Depression Difficulty walking Dysphagia Early menopause GERD (gastroesophageal reflux disease) Gross hematuria Hypercholesteremia Hypertension Microhematuria Obesity CRIS (obstructive sleep apnea) Ovarian mass, right Pancreatic insufficiency Renal mass Seasonal rhinitis Unrefreshed by sleep Ureterocele Historical Irritable bowel Muscle strain Obstructive sleep apnea syndrome Procedure/Surgical History Cystoscopy (10/19/2024), Colonoscopy (2023), Partial hysterectomy (05/25/2015), Ovary. Medications cholestyramine 4 g/9 g Oral Pwdr, 1 packet(s), Oral, Daily Cipro 500 mg Tab, See Instructions estradiol 1 mg Tab, 1 mg= 1 tab(s), Oral, Daily famotidine 20 mg Tab, 20 mg= 1 tab(s), Oral, Daily FLUoxetine 40 mg Cap, 40 mg= 1 cap(s), Oral, Daily metoprolol succinate 25 mg ER Tab, 25 mg= 1 tab(s), Oral, Daily omega-3 polyunsaturated fatty acids 700 mg with Vitamin D oral capsule, 1 cap, Oral, Daily Pantoprazole [address] Tab, 40 mg= 1 tab(s), Oral, BID rosuvastatin 5 mg (more content not included)...NormalOhiohealth Grady Memorial HospitalComment on above:Result Comment: Electronically Signed By: Maria Esther JUARES MD\.br\Date and Time Signed: 10/19/24 11:48 EDT\.br\Electronically Co- Signed By: Nicky Elliott\.br\Date and Time Co-Signed: 10/19/24 11:47 EDTUS RENAL COMPLETEon [id number] RENAL COMPLETEEXAM: Renal Ultrasound: REASON FOR EXAM: Hematuria. COMPARISON: None. TECHNIQUE: Longitudinal and transverse grayscale, color Doppler images of the retroperitoneum obtained with high-resolution ultrasound. FINDINGS: The kidneys are symmetric in size and echogenicity. Parenchymal thickness maintained. Superior pole right kidney renal sinus 2.3 x 2.9 x 2.5 cm anechoic nodule. Enhancement of the posterior wall and posterior acoustic enhancement. There is a iso to hypoechoic partially exophytic 4.96 x 4.17 x 3.45 cm mass superior pole left kidney. No shadowing calcifications. Possible mild posterior acoustic enhancement. The liver demonstrates an incidental hyperechoic 1.1 x 1.4 x 1 cm nodule, subtle through transmission. The bladder shows normal shape, size and contour. Small postvoid residual. Both ureteral jets are visualized. Measurements: Right Kidney: 12.74 x 6.82 x 6.78 cm Left Kidney: 12.75 x 4.53 x 6.40 cm Bladder Pre-void: 351.54 mL Bladder Postvoid: 15.59 mL Rt kidney anechoic area: 2.28 x 2.87 x 2.48 cm Rt liver hyperechoic area: 1.06 x 1.36 x 0.95 cm Lt hypoechoic area: 4.96 x 4.17 x 3.45 cm IMPRESSION: 1. No sonographic evidence of nephrolithiasis or obstructive uropathy. 2. Right peripelvic renal cyst. 3. Iso to slightly hypoechoic mass left kidney. The differential includes a renal mass, complex cyst or prominent parenchyma. Atypical in appearance. CT or MRI renal mass protocol recommended. 4. Incidental hepatic hemangioma. This report is generated using voice recognition reporting ([employer]). On occasion, [employer] erroneously drops words from the report or replaces the spoken word with a similar sounding word. Please call with any questions/concerns regarding the report. Dictated and transcribed 10/14/2024/ashvin This report has been electronically signed and approved by the interpreting radiologist.NormalNot AvailableUrine Cytology ([facility])on [id number] exam Cytology (U) [Interp]Diagnosis InfoInvalid Interpretation CodeOhiohealth Grady Memorial HospitalComment on above:Result Comment: A:Urine,Clean Catch:Voided Interpretation - Adequate cellularity for evaluation. CPT 59842 MicroScopic Description - Adequacy - Gross Description Site ID:A color Yellow fixative Alcohol Specimen designated Clean Catch received in alcohol preservative and labeled with the patient???s name, consists of 50ml slightly cloudy yellow fluid. Electronically signed by : on: 10/07/2024 13:14:24Performed By: #### [id number] #### [facility] [address], [place] [address]Twjvkrjgdk Visit Summaryon [id number] Visit Summary Ambulatory Visit Summary JELANI FREEMAN :1980 Visit Date:10/04/2024 Ambulatory Visit Instructions Your Diagnosis Microhematuria Your Care Team Attending Physician - ADAMA MARCUM, KATALINA Curry Primary Care Physician - DARRIAN HARPER, AGAPITO Rubin Referring Physician - Rj SHAH DO This Is Your Medications List ciprofloxacin (Cipro 500 mg Tab) Contact prescribing physician if questions or concerns cholecalciferol (Vitamin D3 1000 intl units (25 mcg) Tab) cholestyramine (cholestyramine 4 g/9 g Oral Pwdr) estradiol (estradiol 1 mg Tab) famotidine (famotidine 20 mg Tab) fluoxetine (FLUoxetine 40 mg Cap) metoprolol (metoprolol succinate 25 mg ER Tab) omega-3 polyunsaturated fatty acids (omega-3 polyunsaturated fatty acids 700 mg with Vitamin D oralcapsule) pantoprazole (Pantoprazole [address] Tab) rosuvastatin (rosuvastatin 5 mg Tab) Procedures Performed Colonoscopy (2023), Partial hysterectomy (05/25/2015), Ovary. Discharge Vitals Temperature (Temporal Artery) 36.4 ???C Heart Rate (Peripheral) 78 Respiratory Rate 16 Blood Pressure 146/82 Weight 229.28 lb Weight 104 kg What to do next You Need to Schedule the Following Appointments Follow Up with [facility] When: Comments: For procedure as scheduled. Where: Medications What How Much When Instructions New ciprofloxacin (Cipro 500 mg Tab) See instructions 1 tab po night prior to cystoscopy. 1 tab po following cystoscopy. Pickup at [facility] Unchanged cholecalciferol (Vitamin D3 1000 intl units (25 mcg) Tab) 1 Tablets By Mouth Every day Contact prescribing physician if questions or concerns Unchanged cholestyramine (cholestyramine 4 g/ 9 g Oral Pwdr) 1 Packets By Mouth Every day Contact prescribing physician if questions or concerns Unchanged estradiol (estradiol 1 mg Tab) 1 Tablets By Mouth Every day Contact prescribing physicianif questions or concerns Unchanged famotidine (famotidine 20 mg Tab) 1 Tablets By Mouth Every day Contact prescribing physician if questions or concerns Unchanged fluoxetine (FLUoxetine 40 mg Cap) 1 Capsules By Mouth Every day Contact prescribing physician if questions or concerns Unchanged metoprolol (metoprolol succinate 25 mg ER Tab) 1 Tablets By Mouth Every day Contact prescribing physician if questions or concerns Unchanged omega-3 polyunsaturated fatty acids (omega-3 polyunsaturated fatty acids 700 mg with Vitamin D oral capsule) 1 cap By Mouth Every day Contact prescribing physician if questions or concerns Unchanged pantoprazole (Pantoprazole [address] Tab) 1 Tablets By Mouth 2 times a day Contact prescribing physician if questions or concerns Unchanged rosuvastatin (rosuvastatin 5 mg Tab) 1 Tablets By Mouth Every day Contact prescribing physician if questions or concerns Pharmacy Information [facility]: [address] [place], [place] [id number] [phone] Allergies Adhesive Bandage (Skin tear, Rash) No Known Medication Allergies Problems Ongoing - Any problem that you are currently receiving treatment for. Benign cyst of left breast Depression Difficulty walking Dysphagia Early menopause GERD (gastroesophageal reflux disease) Gross hematuria Hypercholesteremia Hypertension Microhematuria Obesity CRIS (obstructive sleep apnea) Ovarian mass, right Pancreatic insufficiency Seasonal rhinitis Unrefreshed by sleep Historical - Any problem that you are no longer receiving treatment for. Irritable bowel Muscle strain Obstructive sleep apnea syndrome Patient Survey You may receive a survey via text or e-mail asking about your office visit. Please share your experience with us by completing your survey. We appreciate your feedback and thank you for choosing us for your care. Education Materials Hematuria, Adult Hematuria is blood in the urine. Blood may be visible in the urine, or it may be identified with a test. This condition can be caused by infections of the bladder, urethra, kidney, or prostate. Otherpossible causes include: ??? Kidney stones. ??? Cancer of the urinary tract. ??? Too much calcium in the urine. ??? Conditions that are passed from parent to child (inherited conditions). ??? Exercise that requires a lot of energy. Infections can usually be treated with medicine, and a kidney stone usually will pass through your urine. If neither of these is the cause of your hematuria, more tests may be needed to identify the cause of your symptoms. It is very important to tell your health care provider about any blood in your urine, even if it ispainless or the blood stops without treatment. Blood in the urine, when it happens and then stops and then happens again, can be a symptom of a very serious condition, including cancer. There is no pain in the initial stages of many urinary cancers. Fo (more content not included)...NormalOhiohealth Grady Memorial HospitalUrine Cytology ([facility])on [id number] Method of ExtractionVoidedNormTriHealthComment on above:Performed By: #### [id number] #### [facility] [address], [place] [address]YT Number of [id number] Interpretation CodeOhiohealth Grady Memorial HospitalComment on above:Performed By: #### [id number] #### [facility] [address], [place] [address]OU SpecimenClean CatchNormalFisher Ace Medical CenterComment on above:Performed By: #### [id number] #### [facility] [address], [place] [address]AH Type of ServiceTechnical OnlyNormalFisher [facility]view Medical CenterComment on above:Performed By: #### [id number] #### [facility] [address], [place] [address]Uufdiar Office/Clinic Noteon [id number] Office/Clinic NoteUrology Office/Clinic Note Chief Complaint New patient micoscopic hematuria HPI Staff 43 yr old female referred by Dr Rj Shah for microscopic blood in urine. [facility] 08/26/24positive for blood. Urine rechecked at [facility] 09/20/24. Small blood and Ur. rbc 3-5. Had urine done in [facility] for a rheumatology appt 07/30/24 and had small blood and Ur. rbc 6-10 BBSQ: 10 Denies dysuria. denies abdominal pain/ has lower back pain off and on . Sometimes when wiping she has some orange brown on the toilet paper. Review of Systems PHQ Score Initial Depression Screen Score: 0 SCORE no fever, chills, malaise, myalgia. no abdominal pain, nausea, vomiting. Physical Exam Vitals & Measurements T: 36.4 ???C(Temporal Artery) HR: 78(Peripheral) RR: 16 BP: 146/82 WT: 104 kg WT: 229.28 lb General: nontoxic, NAD Mouth: moist mucosa Lungs: normal respiratory effort Cardio: regular rate, good distal perfusion Abdomen: nondistended Neurologic: Grossly normal Skin: No rashes or suspicious lesions Assessment/Plan BBSQ 10 good control. IO UA today shows lg hgb but no evidence of infection. 1. Microhematuria (R31.29: Other microscopic hematuria) Questionable gross hematuria - sees orange-brown on toilet paper when she wipes intermittently. 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 Discussed options. The patient is aware that a distinct etiology of the hematuria may not be clear upon conclusion of the workup. Will initiate hematuria workup to include upper urinary tract imaging, as well as evaluation of the urinary cells with urine cytology and possible a FISH test. A cystoscopy will be scheduled to rule out lower urinary tract pathology. The rationale for this workup has been discussed, and all questions have been answered. The risks and benefits for cystoscopy have been discussed. The risks include bleeding, infection, and irritation of the bladder and urinary channel, among others. The patient, after being informed ofprocedural details and after questions have been answered, wishes to proceed. Full informed consenthas been obtained. Will order Local anesthesia. Antibiotics have been sent to pharmacy for procedure. Ordered: E&M of New Patient Moderate 45-59 Min 62161 Urnls Dip Stick Auto w/o Microscopy POC 60720 Orders: ciprofloxacin, See Instructions, 1 tab po night prior to cystoscopy. 1 tab po following cystoscopy., # 2 tab(s), Refills(s) 0, Pharmacy: [facility], 104, kg, 10/04/24 9:37:00 EDT, Weight Dosing Follow-up With When Contact Information [facility] Additional Instructions: For procedure as scheduled. Patient Education Hematuria, Adult Problem List/Past Medical History Ongoing Benign cyst of left breast Depression Difficulty walking Dysphagia Early menopause GERD (gastroesophageal reflux disease) Gross hematuria Hypercholesteremia Hypertension Microhematuria Obesity CRIS (obstructive sleep apnea) Ovarian mass, right Pancreatic insufficiency Seasonal rhinitis Unrefreshed by sleep Historical Irritable bowel Muscle strain Obstructive sleep apnea syndrome Procedure/Surgical History Colonoscopy (2023), Partial hysterectomy (05/25/2015), Ovary. Medications cholestyramine 4 g/9 g Oral Pwdr, 1 packet(s), Oral, Daily Cipro 500 mg Tab, See Instructions estradiol 1 mg Tab, 1 mg= 1 tab(s), Oral, Daily famotidine 20 mg Tab, 20 mg= 1 tab(s), Oral, Daily FLUoxetine 40 mg Cap, 40 mg= 1 cap(s), Oral, Daily metoprolol succinate 25 mg ER Tab, 25 mg= 1 tab(s), Oral, Daily omega-3 polyunsaturated fatty acids 700 mg with Vitamin D oral capsule, 1 cap, Oral, Daily Pantoprazole [address] Tab, 40 mg= 1 tab(s), Oral, BID rosuvastatin 5 mg Tab, 5 mg= 1 tab(s), Oral, Daily Vitamin D3 1000 intl units (25 mcg) Tab, 25 mcg= 1 tab(s), Oral, Daily Allergies Adhesive Bandage (Skin tear, Rash) No Known Medication Allergies Social History Alcohol Never., 10/04/2024 Substance Abuse Never., 10/04/2024 Tobacco Never (less than 100 in lifetime) Tobacco Use:. Never Smokeless Tobacco Use:., 10/04/2024 Family History Primary malignant neoplasm of female breast: Mother. Rheumatoid arthritis: Father.[facility] HospitalComment on above: Result Comment: Electronically Signed By: KATALINA WEIR PA-Cbr\Date and Time Signed: 10/04/2509:10 EDTURINALYSIS, COMPLETEon [id number] Normal(NONE - NEG)[facility] ClinicComment on above:Order Comment: FACILITY: [facility] [id number] By: #### UA #### [place] [facility] [address] [place], [address] BACTERIANONENormal(NONE - OCC)[facility] ClinicComment on above:Order Comment: FACILITY: [facility] [id number] By: #### UA #### [facility] [address] [place], [address] Bilirubin Ql (U)NegativeNormal(NEG)[facility] ClinicComment on above:Order Comment: FACILITY: [facility] [id number] By: #### UA #### [facility] [address] [place], [address] CHARACTERHAZYNormal(CLEAR - HAZY)[facility] ClinicComment on above:Order Comment: FACILITY: [facility] [id number] By: #### UA #### [facility] [facility] [address] [place], [address] Color (U)P YELNormal(P YEL - L AMB)[facility] ClinicComment on above:Order Comment: FACILITY: [facility] [id number] By: #### UA #### [place] [facility] [address] [place], [address] Glucose Ql (U)NegativeNormal(NEG)[facility] ClinicComment on above:Order Comment: FACILITY: [facility] [id number] By: #### UA #### [facility] [address] [place], [address] Ketones Ql (U)NegativeNormal(NEG)[facility] ClinicComment on above:Order Comment: FACILITY: [facility] [id number] By: #### UA #### [facility] [address] [place], [address] LEUK. ESTERASENegativeNormal(NEG)[facility] ClinicComment on above:Order Comment: FACILITY: [facility] [id number] By: #### UA #### [facility] [address] [place], [address] Mucus Ql (Urine sed)NONENormal(NONE - OCC)[facility] Comment on above:Order Comment: FACILITY: [facility] [id number] By: #### UA #### [place] [facility] [address] [place], [address] Nitrite Ql (U)NegativeNormal(NEG)[facility] ClinicComment on above:Order Comment: FACILITY: [facility] [id number] By: #### UA #### [place] [facility] [address] [place], [address] OCCULT BLD.SMALLHigh(NEG)[facility] ClinicComment on above: Order Comment: FACILITY: [facility] [id number] By: #### UA #### [facility] [address] [place], [address] pH (U)6.0 [pH]Normal(5.0 - 9.0)[facility] ClinicComment on above:Order Comment: FACILITY: [facility] [id number] By: #### UA #### [facility] [address] [place], [address] SP. GRAVITY1.006Normal(1.001 - 1.035)[facility] Comment on above:Order Comment: FACILITY: [facility] [id number] By: #### UA #### [facility] [address] [place], [address] SQUAMOUS EPIOCCNormal(NONE - OCC)[facility] ClinicComment on above:Order Comment: FACILITY: [facility] [id number] By: #### UA #### [facility] [address] [place], [address] UR. RBC3-5High(0 - 2)[facility] ClinicComment on above:Order Comment: FACILITY: [facility] [id number] By: #### UA #### [facility] [address] [place], [address] UR. WBC0-4Normal(0 - 4)[facility] ClinicComment on above: Order Comment: FACILITY: [facility] [id number] By: #### UA #### [facility] [address] [place], [address] Urobilinogen (U) [Mass/Vol]0.2 mg/dLNormal(0.2 - <2.0) [facility] HospitalComment on above:Order Comment: FACILITY: [facility] [id number] By: #### UA #### [facility] [address] [facility], [address] IGP,APTIMA HPV,AGE GDLNon [id number] GDLN ACOG TESTINGNote.NOMS HealthcareComment on above:TESTS RESULT FLAG UNITS REF RANGE LAB Clinician Provided Cytology Information Source.............Vagina No. of containers..01 ThinPrep Vial Age Algo ACOG Moni... 30-65 01 FLAG LEGEND: L-Low Normal,H-High Normal,LL-Alert Low,HH-Alert High <-Panic Low,>-Panic High,A-Abnormal,AA-Critical Abnormal Performed at: 01 =G [facility] [address] Christiana Goel MD, HPV APTIMANegativeNegativeNOMS HealthcareComment on above:This nucleic acid amplification test detects fourteen high- risk HPV types (16,18,31,33,35,39,45,51,52,56,58,59,66,68) without differentiation. Performed at: =G - [facility], [place] [id number] Newspaper Delivery Driver: Christiana Goel MD, Phone: [phone] Performed at: - [facility], [place] [id number] Newspaper Delivery Driver: Christiana Goel MD, Phone: [phone] IGP, APTIMA HPV, RFX 16/18,45Note.NOMS HealthcareComment on above:TESTS RESULT FLAG UNITS REF RANGE LAB DIAGNOSIS: 02 NEGATIVE FOR INTRAEPITHELIAL LESION OR MALIGNANCY. THIS SPECIMEN WAS RESCREENED PART OF OUR MANIPULATOR OPERATOR PROGRAM. Specimen adequacy: 02 Satisfactory for evaluation. Performed by: 03 Tami Miller, Laminator Hand (ASC) QC reviewed by: 02 Lavonne Uribe, Laser Beam Trim Operator . 02 Note: Note 02 The Pap smear is a screening test designed to aid in the detection of premalignant and malignant conditions of the uterine cervix. It is not a diagnostic procedure and should not be used as the sole means of detecting cervical cancer. Both false-positive and false-negative reports do occur. Test Methodology: Note 02 This liquid based ThinPrep(R) pap test was screened with the use of an image guided system. HPV Genotype Reflex Note 02 Criteria not met, HPV Genotype not performed. FLAG LEGEND: L-Low Normal,H-High Normal,LL-Alert Low,HH-Alert High <-Panic Low,>-Panic High,A-Abnormal,AA-Critical Abnormal Performed at: 02 WB [facility] [address] [place] [address] Christiana Goel MD, 03 KWCYT [facility] [address] [place] [address] Jeet Franz MD, SPATULA-ALONE [facility] MAMMOGRAM SCREENING TOMOSYNTHESIS BILATERALon [id number] MAMMOGRAM SCREENING TOMOSYNTHESIS BILATERALThis is a summary report. The complete report is available in the patient's medical record. If you cannot access the medical record, please contact the sending organization for a detailed fax or copy. Examination: BI MAMMOGRAM SCREENING TOMOSYNTHESIS BILATERAL Clinical History: screening breast cancer Technique: Screening digital mammography study of both breasts was performed with 2-D and 3-D tomosynthesis imaging. Study was compared to the prior exam dated 09/26/2023. Findings: There is no evidence of interval dominant spiculated mass, grouped microcalcifications, or skin thickening which would be suggestive of malignancy. A few benign-appearing calcifications are seen bilaterally. Axillary lymph nodes are noted on the right which appear grossly unremarkable. IMPRESSION: Impression: No specific evidence of malignancy seen in either breast. BIRADS 2 - Benign Findings DENSITY: There are scattered areas of fibroglandular density. FOLLOW-UP: Routine Screening Mammogram ELECTRONICALLY SIGNED BY: Pasha Dawkins M.D.NormalNot AvailableUrinalysis macro (dipstick) panel (U)on [id number], UANegativeNegative - 4(70) +++ mg/dL NOMS HealthcareBlood, UAPositiveNegative - 50 Christiano/mcLNOMS HealthcareComment on above:moderateClarity, UAClearNOMS HealthcareColor, UAYellowNOMS Healthcare Glucose, UANegativeNegative - 2000(110) ++++ mg/dLNOMS HealthcareInterpretation and review of laboratory resultsAbnormalNOMS HealthcareKetones, UANegative Negative - 160(16) ++++ mg/dLNOMS HealthcareLeukocytes, UANegativeNegative - 500+++ Mehrdad/mcLNOMS HealthcareNitrite, UANegativeNegative - PositiveNOMS HealthcarepH, UA65 - 9NOMS HealthcareProtein, UATraceNegative - 2000(20) ++++ mg/dLNOMS HealthcareSpec Grav, UA1.0251 - 1.03NOMS HealthcareUrobilinogen, UA0.2 0.2 - 12 mg/dLNOMS HealthcareNOMS HealthcareANA SUBTYPING (8)on [id number] CENTROMERE B0.5 U/mLNormal(0.0 - 10.0)[facility] ClinicComment on above:Result Comment: PERFORMED ON PHADIA EFFECTIVE [id number] By: #### CBC-4A, UA, ENA6, ACAX3, C3-C4, ESRCRP, CCP #### [facility] [address] [facility], [address] ANTI ds DNA1.1 IU/MLNormal(0.0 - 15.0)[facility] Comment on above:Performed By: #### CBC-4A, UA, ENA6, ACAX3, C3-C4, ESRCRP, CCP #### [facility] [address] [facility], [address] ANTI JULIA-1<0.3Normal(0.0 - 10.0)[facility] ClinicComment on above:Performed By: #### CBC-4A, UA, ENA6, ACAX3, C3-C4, ESRCRP, CCP #### [facility] [address] [facility], [address] ANTI ADMINISTRATIVE SUPPORT TECHNICIAN (U1RNP)1.0 U/mLNormal(0.0 - 10.0)[facility] Comment on above:Performed By: #### CBC-4A, UA, ENA6, ACAX3, C3-C4, ESRCRP, CCP #### [facility] [address] [facility], [address] ANTI SCL 700.7 U/mLNormal(0.0 - 10.0)[facility] Comment on above:Performed By: #### CBC-4A, UA, ENA6, ACAX3, C3-C4, ESRCRP, CCP #### [facility] [address] [place], [address] ANTI BUNCH<0.7Normal(0.0 - 10.0)[facility] ClinicComment on above:Performed By: #### CBC-4A, UA, ENA6, ACAX3, C3-C4, ESRCRP, CCP #### [facility] [place], [address] ANTI SSB/LA1.9 U/mLNormal(0.0 - 10.0)[facility] Comment on above:Performed By: #### CBC-4A, UA, ENA6, ACAX3, C3-C4, ESRCRP, CCP #### [facility] [address] [place], [place] [address] [place], [address] SSA/RO52<0.3Normal(0.0 - 10.0)[facility] ClinicComment on above:Performed By: #### CBC-4A, UA, ENA6, ACAX3, C3-C4, ESRCRP, CCP #### [facility] [address] [place], [place] [address] [place], [address] SSA/RO60<0.4Normal(0.0 - 10.0)[facility] ClinicComment on above:Performed By: #### CBC-4A, UA, ENA6, ACAX3, C3-C4, ESRCRP, CCP #### [facility] [place], [address] C3 AND C4on 5C 3156 MG/DLNormal(88 - 165)[facility] ClinicComment on above:Performed By: #### CBC-4A, UA, ENA6, ACAX3, C3-C4, ESRCRP, CCP #### [facility] [place], [address] C 415 MG/DLNormal(14 - 44)[facility] ClinicComment on above: Performed By: #### CBC-4A, UA, ENA6, ACAX3, C3-C4, ESRCRP, CCP #### [facility] [address] [facility], [address] CARDIOLIPIN IGG, IGA, IGMon [id number], IgA2.7 U/mL Low(14.0 - 20.0)[facility] ClinicComment on above:Performed By: #### CBC-4A, UA, ENA6, ACAX3, C3-C4, ESRCRP, CCP #### [facility] [address] [facility], [address] ACA, IgG0.6 U/mLLow(10.0 - 40.0)[facility] ClinicComment on above:Performed By: #### CBC-4A, UA, ENA6, ACAX3, C3-C4, ESRCRP, CCP #### [facility] [facility], [address] ACA, IgM4.6 U/mLLow(10.0 - 40.0)[facility] ClinicComment on above:Performed By: #### CBC-4A, UA, ENA6, ACAX3, C3-C4, ESRCRP, CCP #### [facility] [address] [place], [place] [address] [facility], [address] CBC/ALB/ALT/AST/ALK/CRon [id number] [Mass/Vol]4.2 g/dLNormal(3.5 - 5.0)[facility] ClinicComment on above:Order Comment: [facility] [id number] By: #### CBC-4A, UA, ENA6, ACAX3, C3-C4, ESRCRP, CCP #### [facility] [facility], [address] ALK PHOS84 U/LNormal(38 - 126)[facility] ClinicComment on above:Order Comment: FACILITY: [facility] [id number] By: #### CBC-4A, UA, ENA6, ACAX3, C3-C4, ESRCRP, CCP #### [facility] [address] [place], [address] ALT [Catalytic activity/Vol]20 U/LNormal(1 - 35)[facility] ClinicComment on above:Order Comment: FACILITY: [facility] [id number] By: #### CBC-4A, UA, ENA6, ACAX3, C3-C4, ESRCRP, CCP #### [facility] [address] [place], [address] AST [Catalytic activity/Vol]25 U/LNormal(15 - 46)[facility] ClinicComment on above:Order Comment: FACILITY: [facility] [id number] By: #### CBC-4A, UA, ENA6, ACAX3, C3-C4, ESRCRP, CCP #### [facility] [address] [place], [address] Creatinine [Mass/Vol]0.56 mg/dLNormal(0.52 - 1.04)[facility] ClinicComment on above:Order Comment: FACILITY: [facility] [id number] By: #### CBC-4A, UA, ENA6, ACAX3, C3-C4, ESRCRP, CCP #### [facility] [address] [place], [address] GFR by CKD-FLT429.6 ML/M1.7Normal(60.0)[facility] Comment on above:Order Comment: FACILITY: [facility] [id number] By: #### CBC-4A, UA, ENA6, ACAX3, C3-C4, ESRCRP, CCP #### [facility] [address] [place], [id number] Hematocrit (Bld) [Volume fraction]38.3 %Normal(37.0 - 47.0)[facility] ClinicComment on above:Order Comment: FACILITY: [facility] [id number] By: #### CBC-4A, UA, ENA6, ACAX3, C3-C4, ESRCRP, CCP #### [facility] [facility], [address] Hemoglobin (Bld) [Mass/Vol]13.1 g/dLNormal(12.0 - 16.0) [facility] ClinicComment on above:Order Comment: FACILITY: [facility] [id number] By: #### CBC-4A, UA, ENA6, ACAX3, C3-C4, ESRCRP, CCP #### [facility] [address] [facility], [id number] MCH (RBC) [Entitic mass]31.9 pgNormal(27.0 - 33.0)[facility] ClinicComment on above:Order Comment: FACILITY: [facility] [id number] By: #### CBC-4A, UA, ENA6, ACAX3, C3-C4, ESRCRP, CCP #### [facility] [address] [facility], [id number] MCHC (RBC) [Mass/Vol]34.2 g/dLNormal(30.0 - 37.0)[facility] ClinicComment on above:Order Comment: FACILITY: [facility] [id number] By: #### CBC-4A, UA, ENA6, ACAX3, C3-C4, ESRCRP, CCP #### [facility] [facility], [address] MCV (RBC) [Entitic vol]93.2 fLNormal(81.0 - 99.0)[facility] ClinicComment on above:Order Comment: FACILITY: [facility] [id number] By: #### CBC-4A, UA, ENA6, ACAX3, C3-C4, ESRCRP, CCP #### [facility] [address] [facility], [address] PLT358 x10^3ulNormal(130 - 400)[facility] ClinicComment on above:Order Comment: FACILITY: [facility] [place] [id number] By: #### CBC-4A, UA, ENA6, ACAX3, C3-C4, ESRCRP, CCP #### [facility] [address] [place], [place] [address] [facility], [address] RBC4.11 x10^6ulLow(4.20 - 5.40)[facility] ClinicComment on above:Order Comment: FACILITY: [facility] [place] [id number] By: #### CBC-4A, UA, ENA6, ACAX3, C3-C4, ESRCRP, CCP #### [facility] [address] [place], [place] [address] [facility], [address] WBC5.80 x10^3ulNormal(3.80 - 10.60)[facility] ClinicComment on above:Order Comment: FACILITY: [facility] [place] [id number] By: #### CBC-4A, UA, ENA6, ACAX3, C3-C4, ESRCRP, CCP #### [facility] [address] [facility], [address] SED RATE - CRPon [id number] EXTENDED RANGE3.04 MG/L Normal(0.00 - 5.00)[facility] ClinicComment on above:Performed By: #### CBC-4A, UA, ENA6, ACAX3, C3-C4, ESRCRP, CCP #### [facility] [address] [facility], [address] SED RATE WEST.5 MM/HRNormal(0 - 25)[facility] ClinicComment on above:Performed By: #### CBC-4A, UA, ENA6, ACAX3, C3-C4, ESRCRP, CCP #### [facility] [address] [place], [address] URINALYSIS, COMPLETEon [id number] (NONE - NEG)[facility] ClinicComment on above:Performed By: #### CBC-4A, UA, ENA6, ACAX3, C3-C4, ESRCRP, CCP #### [facility] [address] [place], [address] BACTERIAFEWNormal(NONE - OCC)[facility] ClinicComment on above:Performed By: #### CBC-4A, UA, ENA6, ACAX3, C3-C4, ESRCRP, CCP #### [facility] [address] [place], [address] Bilirubin Ql (U)NegativeNormal(NEG)[facility] ClinicComment on above:Performed By: #### CBC-4A, UA, ENA6, ACAX3, C3-C4, ESRCRP, CCP #### [facility] [address] [place], [address] CHARACTERHAZYNormal(CLEAR - HAZY)[facility] ClinicComment on above:Performed By: #### CBC-4A, UA, ENA6, ACAX3, C3-C4, ESRCRP, CCP #### [facility] [address] [place], [address] Color (U)P YELNormal(P YEL - L AMB)[facility] ClinicComment on above:Performed By: #### CBC-4A, UA, ENA6, ACAX3, C3-C4, ESRCRP, CCP #### [facility] [address] [place], [address] Glucose Ql (U)NegativeNormal(NEG)[facility] ClinicComment on above:Performed By: #### CBC-4A, UA, ENA6, ACAX3, C3-C4, ESRCRP, CCP #### [facility] [address] [facility], [address] Ketones Ql (U)NegativeNormal(NEG)[facility] ClinicComment on above:Performed By: #### CBC-4A, UA, ENA6, ACAX3, C3-C4, ESRCRP, CCP #### [facility] [address] [facility], [address] LEUK. ESTERASENegativeNormal(NEG)[facility] ClinicComment on above:Performed By: #### CBC-4A, UA, ENA6, ACAX3, C3-C4, ESRCRP, CCP #### [facility] [address] [facility], [address] Mucus Ql (Urine sed)OCCNormal(NONE - OCC)[facility] Comment on above:Performed By: #### CBC-4A, UA, ENA6, ACAX3, C3-C4, ESRCRP, CCP #### [facility] [address] [facility], [address] Nitrite Ql (U)NegativeNormal(NEG)[facility] ClinicComment on above:Performed By: #### CBC-4A, UA, ENA6, ACAX3, C3-C4, ESRCRP, CCP #### [facility] [address] [facility], [address] OCCULT BLD.SMALLHigh(NEG)[facility] ClinicComment on above: Performed By: #### CBC-4A, UA, ENA6, ACAX3, C3-C4, ESRCRP, CCP #### [facility] [address] [facility], [address] pH (U)5.5 [pH]Normal(5.0 - 9.0)[facility] ClinicComment on above:Performed By: #### CBC-4A, UA, ENA6, ACAX3, C3-C4, ESRCRP, CCP #### [facility] [address] [facility], [address] SP. GRAVITY1.021Normal(1.001 - 1.035)[facility] Comment on above:Performed By: #### CBC-4A, UA, ENA6, ACAX3, C3-C4, ESRCRP, CCP #### [facility] [address] [facility], [address] SQUAMOUS EPIOCCNormal(NONE - OCC)[facility] ClinicComment on above:Performed By: #### CBC-4A, UA, ENA6, ACAX3, C3-C4, ESRCRP, CCP #### [facility] [address] [facility], [address] UR. RBC6-10High(0 - 2)[facility] ClinicComment on above: Performed By: #### CBC-4A, UA, ENA6, ACAX3, C3-C4, ESRCRP, CCP #### [facility] [address] [facility], [address] UR. WBC0-4Normal(0 - 4)[facility] ClinicComment on above: Performed By: #### CBC-4A, UA, ENA6, ACAX3, C3-C4, ESRCRP, CCP #### [facility] [address] [facility], [address] Urobilinogen (U) [Mass/Vol]0.2 mg/dLNormal(0.2 - <2.0) [facility] ClinicComment on above:Performed By: #### CBC-4A, UA, ENA6, ACAX3, C3-C4, ESRCRP, CCP #### [facility] [facility], [address] ANA SCREEN, IFA, W/REFL TITER AND PATTERNon 05-12-2024 PANCHO SCREEN, IFAPositiveAbnormalNEGATIVEQuest DiagnosticsComment on above:Result Comment: PANCHO IFA is a first line screen for detecting the presence of up to approximately 150 autoantibodies in various autoimmune diseases. A positive PANCHO IFA result is suggestive of autoimmune disease and reflexes to titer and pattern. Further laboratory testing may be considered if clinically indicated. For additional information, please refer to http://education.SkyeTek/faq/GJV709 (This link is being provided for informational/ educational purposes only.)Performed By: #### 37455, %94444, 809, 905, 6399, 09720, 7600 #### [facility] [address], [address] [place] [address] Home Care Companion: Leroy Recinos MD #### 528 #### [facility], [address] [place] [address] Home Care Companion: Rachele Zhang MD,PhD,MBAANTINUCLEAR ANTIBODIES TITER AND PATTERNon 46-40-6252CGU PATTERNNuclear, SpeckledAbnormalQuest DiagnosticsComment on above:Result Comment: Speckled pattern is associated with mixed connective tissue disease (MCTD), systemic lupus erythematosus (SLE), Sjogren's syndrome, dermatomyositis, and systemic sclerosis/polymyositis overlap. AC-2,4,5,29: Speckled International Consensus on PANCHO Patterns (https://doi.org/10.1515/sdfy-4388-6707)Performed By: #### 27206, %30080, 809, 905, 6399, 68289, 7600 #### [facility] [address], [address] [place] [address] Home Care Companion: Leroy Recinos MD #### 528 #### [facility], [address] [place] [address] Home Care Companion: Rachele Zhang MD,PhD,MBAANA TITER1:160HighQuest [facility]ostics Comment on above:Result Comment: Reference Range <1:40 Negative 1:40-1:80 Low Antibody Level >1:80 Elevated Antibody LevelPerformed By: #### 89090, %40515, 809, 905, 6399, 03820, 7600 #### [facility] [place] [address], [address] [place] [address] Home Care Companion: Leroy Recinos MD #### 528 #### [facility], [address] [place], [place] [address] Home Care Companion: Rachele Zhang MD,PhD,MBACBC (INCLUDES DIFF/PLT)on 05-12-2024 Basophils (Bld) [#/Vol]0.041 10*3/uLNormal0-200Quest DiagnosticsComment on above:Performed By: #### 95785, %52503, 809, 905, 6399, [address]237, 7600 #### [facility] [place] [address] [address] , [address] [place] [address] Home Care Companion: Leroy Recinos MD #### 528 #### [facility], [address] [place] [address] Home Care Companion: Rachele Zhang MD,PhD,MBABasophils/100 WBC (Bld)0.7 %Normal Quest DiagnosticsComment on above:Performed By: #### [address]7555, %63270, 809, 905, 6399, [address]34[address], 7600 #### [facility] [place] [address] [address] [facility] , [address] [place] [address] Home Care Companion: Leroy Recinos MD #### 528 #### [facility], [facility] [place] [address] Home Care Companion: Rachele Zhang MD,PhD,MBAEosinophils (Bld) [#/Vol]0.071 10*3/[id number] DiagnosticsComment on above:Performed By: #### [id number], %42815, 809, 905, 6399, 12199, 7600 #### [facility] [address], [address] [place] [address] Home Care Companion: Leroy Recinos MD #### 528 #### [facility], [address] [place] [address] Home Care Companion: Rachele hZang MD,PhD,MBAEosinophils/100 WBC (Bld)1.2 %Normal [facility] DiagnosticsComment on above:Performed By: #### [id number], %28752, 809, 905, 6399, 64256, 7600 #### [facility] [address], [address] [place] [address] Home Care Companion: Leroy Recinos MD #### 528 #### [facility], [address] [place] [address] Home Care Companion: Rachele Zhang MD,PhD,MBAErythrocyte distribution width (RBC) [Ratio]11.4 %Afrtfd43.0-15.0Quest DiagnosticsComment on above:Performed By: #### [id number], %76263, 809, 905, 6399, 39405, 7600 #### [facility] [address], [address] [place] [address] Home Care Companion: Leroy Recinos MD #### 528 #### [facility], [address] [place] [address] Home Care Companion: Rachele Zhang MD,PhD,MBAHematocrit (Bld) [Volume fraction] 41.8 %Ygoike00.0-45.0Quest DiagnosticsComment on above:Performed By: #### 64878, %98454, 809, 905, 6399, 27782, 7600 #### [facility] [address], [address] [place] [address] Home Care Companion: Leroy Recinos MD #### 528 #### [facility], [facility] [place] [address] Home Care Companion: Rachele Zhang MD,PhD,MBAHemoglobin (Bld) [Mass/Vol]14.2 g/dL Pajwuw64.7-15.5Quest DiagnosticsComment on above:Performed By: #### 50955, %31139, 809, 905, 6399, 13882, 7600 #### [facility] [address], [address] [place] [address] Home Care Companion: Leroy Recinos MD #### 528 #### [facility], [facility] [place] [address] Home Care Companion: Rachele Zhang MD,PhD,MBALymphocytes (Bld) [#/Vol]1.782 10*3/cALjojpl814-7681Otjjc DiagnosticsComment on above:Performed By: #### 74989, %72560, 809, 905, 6399, 73662, 7600 #### [facility] [address], [address] [place] [address] Home Care Companion: Leroy Recinos MD #### 528 #### [facility], [address] [place] [address] Home Care Companion: Rachele Zhang MD,PhD,MBALymphocytes/100 WBC (Bld)30.2 %Normal [facility] DiagnosticsComment on above:Performed By: #### 73673, %60605, 809, 905, 6399, 68674, 7600 #### [facility] [address], [address] [place] [address] Home Care Companion: Leroy Recinos MD #### 528 #### [facility], [address] [place] [address] Home Care Companion: Rachele Zhang MD,PhD,MBMONIKACH (RBC) [Entitic mass]31.1 pgNormal 27.0-33.0Quest DiagnosticsComment on above:Performed By: #### 01590, %58287, 809, 905, 6399, 24635, 7600 #### [facility] [address], [address] [place], [place] [address] Home Care Companion: Leroy Recinos MD #### 528 #### [facility], [address] [place] [address] Home Care Companion: Rachele Zhang MD,PhD,MBMONIKACHC (RBC) [Mass/Vol]34.0 g/dLNormal 32.0-36.0Quest DiagnosticsComment on above:Result Comment: For adults, a slight decrease in the calculated MCHC value (in the range of 30 to 32 g/dL) is most likely not clinically significant; however, it should be interpreted with caution in correlation with other red cell parameters and the patient's clinical condition.Performed By: #### 58069, %65863, 809, 905, 6399, 78577, 7600 #### [facility] [address], [address] [place], [place] [address] Home Care Companion: Leroy Recinos MD #### 528 #### [facility], [address] [place] [address] Home Care Companion: Rachele Zhang MD,PhD,MBATA (RBC) [Entitic vol]91.7 fLNormal 80.0-100.0Quest DiagnosticsComment on above:Performed By: #### 94150, %38256, 809, 905, 6399, 54144, 7600 #### [facility] [address], [address] [place] [address] Home Care Companion: Leroy Recinos MD #### 528 #### [facility], [address] [place] [address] Home Care Companion: Rachele Zhang MD,PhD,MBAMonocytes (Bld) [#/Vol]0.431 10*3/uL Nfiojy925-611Bwohx DiagnosticsComment on above:Performed By: #### 55746, %62080, 809, 905, 6399, 09353, 7600 #### [facility] [address], [address] [place] [address] Home Care Companion: Leroy Recinos MD #### 528 #### [facility], [facility] [place] [address] Home Care Companion: Rachele Zhang MD,PhD,MBAMonocytes/100 WBC (Bld)7.3 %Normal [facility]osticsComment on above:Performed By: #### 20910, %46907, 809, 905, 6399, 84178, 7600 #### [facility] [address], [address] [place] [address] Home Care Companion: Leroy Recinos MD #### 528 #### [facility], [facility] [place] [address] Home Care Companion: Rachele Zhang MD,PhD,MBANeutrophils (Bld) [#/Vol]3.575 10*3/gWGklzrf0742-7349Ecjar DiagnosticsComment on above:Performed By: #### 65511, %69392, 809, 905, 6399, 43952, 7600 #### [facility] [address], [address] [place] [address] Home Care Companion: Leroy Recinos MD #### 528 #### [facility], [address] [place] [address] Home Care Companion: Rachele Zhang MD,PhD,MBANeutrophils/100 WBC (Bld)60.6 %Normal [facility]osticsComment on above:Performed By: #### 08131, %23589, 809, 905, 6399, 96070, 7600 #### [facility] [address], [address] [place] [address] Home Care Companion: Leroy Recinos MD #### 528 #### [facility], [address] [place] [address] Home Care Companion: Rachele Zhang MD,PhD,MBAPlatelet mean volume (Bld) [Entitic vol]8.7 fLNormal7.5-12.5Quest DiagnosticsComment on above:Performed By: #### 71931, %53811, 809, 905, 6399, 56331, 7600 #### [facility] [address], [address] [place] [address] Home Care Companion: Leroy Recinos MD #### 528 #### [facility], [address] [place] [address] Home Care Companion: Rachele Zhang MD,PhD,MBAPlatelets (Bld) [#/Vol]393 10*3/uL Lziebf441-381Aiikz DiagnosticsComment on above:Performed By: #### 64803, %07981, 809, 905, 6399, 59692, 7600 #### [facility] [address], [address] [place] [address] Home Care Companion: Leroy Recinos MD #### 528 #### [facility], [address] [place] [address] Home Care Companion: Rachele Zhang MD,PhD,MBDIGNITY HEALTH [facility] ([facility]) [#/Vol]4.56 10*6/uLNormal 3.80-5.10Quest DiagnosticsComment on above:Performed By: #### 02202, %59514, 809, 905, 6399, 26772, 7600 #### [facility] [place] [address] , [address] [place] [address] Home Care Companion: Leroy Recinos MD #### 528 #### [facility], [address] [place] [address] Home Care Companion: Rachele Zhang MD,PhD,MBMCLAREN LAPEER REGION ([facility]) [#/Vol]5.9 10*3/uLNormal 3.8-10.8Quest DiagnosticsComment on above:Performed By: #### 30222, %03744, 809, 905, 6399, 09544, 7600 #### [facility] of [place] [address] , [address] [place] [address] Home Care Companion: Leroy Recinos MD #### 528 #### [facility], [address] [place] [address] Home Care Companion: Rachele Zhang MD,PhD,MBCANONSBURG HOSPITALREHENSIVE METABOLIC PANELon 23-69-1469Yhcsrvr [Mass/Vol]4.1 g/dLNormal3.6-5.1Quest DiagnosticsComment on above:Performed By: #### 41782, %99641, 809, 905, 6399, 78219, 7600 #### [facility] [place] [address] , [address] [place] [address] Home Care Companion: Leroy Recinos MD #### 528 #### [facility], [address] [place] [phone] Home Care Companion: Rachele Zhang MD,PhD,MBRICHARDlbumin/Globulin [Mass ratio]1.5 {ratio}Normal1.0-2.5Quest DiagnosticsComment on above:Performed By: #### 27817, %12135, 809, 905, 6399, 20674, 7600 #### [facility] [address], [address] [place] [address] Home Care Companion: Leroy Recinos MD #### 528 #### [facility], [facility] [place] [address] Home Care Companion: Rachele Zhang MD,PhD,MBAALP [Catalytic activity/Vol]63 U/L Qowisb97-796Thhls DiagnosticsComment on above:Performed By: #### 87676, %93857, 809, 905, 6399, 88816, 7600 #### [facility] [address], [address] [place] [address] Home Care Companion: Leryo Recinos MD #### 528 #### [facility], [address] [place] [phone] Home Care Companion: Rachele Zhang MD,PhD,MBAALT [Catalytic activity/Vol]15 U/L Normal6-29Quest DiagnosticsComment on above:Performed By: #### 66623, %54103, 809, 905, 6399, 01017, 7600 #### [facility] of [address], [address] [place] [address] Home Care Companion: Leroy Recinos MD #### 528 #### [facility], [address] [place] Home Care Companion: Rachele Zhang MD,PhD,MBAAST [Catalytic activity/Vol]15 U/L Lbyvsb53-43Phmya DiagnosticsComment on above:Performed By: #### 43452, %61019, 809, 905, 6399, 59162, 7600 #### [facility] [address], [address] [place], [place] [address] Home Care Companion: Leroy Recinos MD #### 528 #### [facility], [address] [place] [phone] Home Care Companion: Rachele Zhang MD,PhD,MBABilirubin [Mass/Vol]0.5 mg/dLNormal 0.2-1.2Quest DiagnosticsComment on above:Performed By: #### 81473, %74115, 809, 905, 6399, 25206, 7600 #### [facility] [address], [address] [place], [place] [address] Home Care Companion: Leroy Recinos MD #### 528 #### [facility], [address] [place] [address] Home Care Companion: Rachele Zhang MD,PhD,MBABUN/CREATININE RATIOSEE NOTE:Normal 6-22Quest DiagnosticsComment on above:Result Comment: Not Reported: BUN and Creatinine are within reference range.Performed By: #### 78779, %21582, 809, 905, 6399, 63277, 7600 #### [facility] [address], [address] [place] [address] Home Care Companion: Leroy Recinos MD #### 528 #### [facility], [address] [place] [phone] Home Care Companion: Rachele Zhang MD,PhD,MBACalcium [Mass/Vol]10.3 mg/dLHigh 8.6-10.2Quest DiagnosticsComment on above:Performed By: #### 57414, %61500, 809, 905, 6399, 79837, 7600 #### [facility] [address], [address] [place] [address] Home Care Companion: Leroy Recinos MD #### 528 #### [facility], [address] [place] [address] Home Care Companion: Rachele Zhang MD,PhD,MBAChloride [Moles/Vol]102 mmol/LNormal 98-110Quest DiagnosticsComment on above:Performed By: #### 98716, %03964, 809, 905, 6399, 55081, 7600 #### [facility] of [place] [address], [address] [place] [address] Home Care Companion: Leroy Recinos MD #### 528 #### [facility], [address] [place] [address] Home Care Companion: Rachele Zhang MD,PhD,MBACO2 [Moles/Vol]28 mmol/QHhyowc11-19 [facility]osticsComment on above:Performed By: #### 85316, %15404, 809, 905, 6399, 37075, 7600 #### [facility] of [place] [address] , [address] [place] [address] Home Care Companion: Leroy Recinos MD #### 528 #### [facility], [facility] [place] [address] Home Care Companion: Rachele Zhang MD,PhD,MBACreatinine [Mass/Vol]0.58 mg/dLNormal 0.50-0.99Quest DiagnosticsComment on above:Performed By: #### 13639, %23869, 809, 905, 6399, 42050, 7600 #### [facility] [address], [address] [place] [address] Home Care Companion: Leroy Recinos MD #### 528 #### [facility], [address] [place] [address] Home Care Companion: Rachele Zhang MD,PhD,MBAGFR/1.73 sq M.predicted among non- blacks MDRD (S/P/Bld) [Vol rate/Area]114 mL/min/{1.73_m2}Normal> OR = 60Quest DiagnosticsComment on above:Performed By: #### 52651, %46961, 809, 905, 6399, 88454, 7600 #### [facility] [place] [address] [facility], [address] [place] [address] Home Care Companion: Leroy Recinos MD #### 528 #### [facility]/[address] [address] Home Care Companion: Rachele Zhang MD,PhD,MBAGlobulin (S) [Mass/Vol]2.7 g/dLNormal 1.9-3.7Quest DiagnosticsComment on above:Performed By: #### 90218, %95544, 809, 905, 6399, 68011, 7600 #### [facility] [address], [address] [place] [address] Home Care Companion: Leroy Recinos MD #### 528 #### [facility], [address] [place] [address] Home Care Companion: Rachele Zhang MD,PhD,MBAGlucose [Mass/Vol]78 mg/aVLtmorv09-71 [facility]osticsComment on above:Result Comment: Fasting reference intervalPerformed By: #### 51342, %04862, 809, 905, 6399, 18719, 7600 #### [facility] [address], [address] [place] [address] Home Care Companion: Leroy Recinos MD #### 528 #### [facility], [address] [place], [place] [address] Home Care Companion: Rachele Zhang MD,PhD,MBAPotassium [Moles/Vol]3.9 mmol/LNormal 3.5-5.3[facility] DiagnosticsComment on above:Performed By: #### 05794, %49013, 809, 905, 6399, 95504, 7600 #### [facility] [place] [address] , [address] [place] [address] Home Care Companion: Leroy Recinos MD #### 528 #### [facility], [address] [place], [place] [address] Home Care Companion: Rachele Zhang MD,PhD,MBAProtein [Mass/Vol]6.8 g/dLNormal 6.1-8.1Quest DiagnosticsComment on above:Performed By: #### 10610, %43189, 809, 905, 6399, 34193, 7600 #### [facility] [address] , [address] [place] [address] Home Care Companion: Leroy Recinos MD #### 528 #### [facility], [address] [place] [address] Home Care Companion: Rachele Zhang MD,PhD,MBASodium [Moles/Vol]138 mmol/LNormal 135-146Quest DiagnosticsComment on above:Performed By: #### 75920, %61248, 809, 905, 6399, 60364, 7600 #### [facility] [place] [address] , [address] [place] [address] Home Care Companion: Leroy Recinos MD #### 528 #### [facility], [address] [place], [place] [address] Home Care Companion: Rachele Zhang MD,PhD,EDIErelenka nitrogen [Mass/Vol]8 mg/dLNormal 7-25Quest DiagnosticsComment on above:Performed By: #### 63057, %59675, 809, 905, 6399, 74900, 7600 #### [facility] of [address], [address] [place] [address] Home Care Companion: Leroy Recinos MD #### 528 #### [facility], [address] [place] [address] Home Care Companion: Rachele Zhang MD,PhD,CORRIELA-B27 ANTIGENon 19-25-2061XEI-B27 ANTIGENNegativeNormalNEGATIVEQuest DiagnosticsComment on above:Performed By: #### 78067, %40270, 809, 905, 6399, 12872, 7600 #### [facility] of [address], [address] [place] [address] Home Care Companion: Leroy Recinos MD #### 528 #### [facility], [address] [place] [address] Home Care Companion: Rachele Zhang MD,PhD,MBALIPID PANEL, STANDARDon 05-12-2024 Cholesterol [Mass/Vol]160 mg/dLNormal<200Quest DiagnosticsComment on above:Order Comment: FASTING:YES FASTING: YESPerformed By: #### 84224, %81903, 809, 905, 6399, 22718, 7600 #### [facility] of [address], [address] [place] [address] Home Care Companion: Leroy Recinos MD #### 528 #### [facility], [address] [facility] [address] Home Care Companion: Rachele Zhang MD,PhD,MBACholesterol in HDL [Mass/Vol]53 mg/dL Normal> OR = 50Quest DiagnosticsComment on above:Order Comment: FASTING:YES FASTING: YESPerformed By: #### 53933, %63333, 809, 905, 6399, 18108, 7600 #### [facility] [address], [address] [place] [address] Home Care Companion: Leroy Recinos MD #### 528 #### [facility], [address] [place] [address] Home Care Companion: Rachele Zhang MD,PhD,MBACholesterol in LDL [Mass/Vol]77 mg/dL NormalQuest DiagnosticsComment on above:Order Comment: FASTING:YES FASTING: YESResult Comment: Reference range: <100 Desirable range <100 mg/dL for primary prevention; <70 mg/dL for patients with CHD or diabetic patients with > or = 2 CHD risk factors. LDL-C is now calculated using the Biju calculation, which is a validated novel method providing better accuracy than the Friedewald equation in the estimation of LDL-C. Manpreet LANTIGUA et al. TATUM. 2013;310(19): 4794-2965 (http://education.Taskhero.com.InvenSense/faq/QLE533)Performed By: #### 45199, %52881, 809, 905, 6399, 89603, 7600 #### [facility] [address], [address] [place] [address] Home Care Companion: Leroy Recinos MD #### 528 #### [facility], [address] [place] [address] Home Care Companion: Rachele Zhang MD,PhD,MBACholesterol.total/Cholesterol in HDL [Mass ratio]3.0 {ratio}Normal<5.0Quest DiagnosticsComment on above:Order Comment: FASTING:YES FASTING: YESPerformed By: #### 64298, %92139, 809, 905, 6399, 77789, 7600 #### [facility] [address], [address] [place] [address] Home Care Companion: Leroy Recinos MD #### 528 #### [facility], [address] [place] [address] Home Care Companion: Rachele Zhang MD,PhD,AISLINN HDL DQMIOHVYATY880 mg/dL (calc) Normal<130Quest DiagnosticsComment on above:Order Comment: FASTING:YES FASTING: YESResult Comment: For patients with diabetes plus 1 major ASCVD risk factor, treating to a non-HDL-C goal of <100 mg/dL (LDL-C of <70 mg/dL) is considered a therapeutic option.Performed By: #### 42673, %31308, 809, 905, 6399, 68044, 7600 #### [facility] [address], [address] [place] [address] Home Care Companion: Leroy Recinos MD #### 528 #### [facility], [address] [place] [address] Home Care Companion: Rachele Zhang MD,PhD,MBATriglyceride [Mass/Vol]200 mg/dLHigh <150Quest DiagnosticsComment on above:Order Comment: FASTING:YES FASTING: YESResult Comment: If a non-fasting specimen was collected, consider repeat triglyceride testing on a fasting specimen if clinically indicated. Shabbir et al. J. of Clin. Lipidol. 2015;9:129-169.Performed By: #### 26581, %18899, 809, 905, 6399, 68911, 7600 #### [facility] [address], [address] [place] [address] Home Care Companion: Leroy Recinos MD #### 528 #### [facility], [address] [place] [address] Home Care Companion: Rachele Zhang MD,PhD,DANIELAARABELID FACTORon 05-12-2024 RHEUMATOID FACTOR<10Normal<14Quest DiagnosticsComment on above:Performed By: #### 47033, %79898, 809, 905, 6399, 46302, 7600 #### [facility] [address], [address] [place] [address] Home Care Companion: Leroy Recinos MD #### 528 #### [facility], [address] [place] [address] Home Care Companion: Rachele Zhang MD,PhD,MBASED RATE BY MODIFIED WESTERGRENon 52-93-7302FTQ RATE BY MODIFIED WESTERGREN2 mm/hNormal< OR = 20[facility] Comment on above:Performed By: #### 67730, %25348, 809, 905, 6399, 68828, 7600 #### [facility] [address], [address] [place] [address] Home Care Companion: Leroy Recinos MD #### 528 #### [facility], [address] [place] [address] Home Care Companion: Rachele Zhang MD,PhD,MBAURIC ACIDon 65-69-4403Ifbff [Mass/Vol]4.7 mg/dLNormal2.5-7.0Quest DiagnosticsComment on above:Result Comment: Therapeutic target for gout patients: <6.0 mg/dLPerformed By: #### 15461, %41640, 809, 905, 6399, 46861, 7600 #### [facility] [address], [address] [place] [address] Home Care Companion: Leroy Recinos MD #### 528 #### [facility], [address] [place] [address] Home Care Companion: Rachele Zhang MD,PhD,MBAVITAMIN D,25-OH,TOTAL,IAon 05-12-2024 VITAMIN D,25-OH,TOTAL,IA26 ng/bBUlw27-128Sfhar DiagnosticsComment on above: Result Comment: Vitamin D Status 25-OH Vitamin D: Deficiency: <20 ng/mL Insufficiency: 20 - 29 ng/mL Optimal: > or = 30 ng/mL For 25-OH Vitamin D testing on patients on D2-supplementation and patients for whom quantitation of D2 and D3 fractions is required, the QuestAssureD(TM) 25-OH VIT D, (D2,D3), LC/MS/MS is recommended: order code 16956 (patients >2yrs). See Note 1 Note 1 For additional information, please refer to http://education.SkyeTek/faq/ZUX702 (This link is being provided for informational/ educational purposes only.)Performed By: #### 99858, %74133, 809, 905, 6399, 61834, 7600 #### [facility] [address] [facility], [address] [place] [address] Home Care Companion: Leroy Recinos MD #### 528 #### [facility], [address] [place] [address] Home Care Companion: Rachele Zhang MD,PhD,MBAXR CERVICAL SPINE 2-3 VIEWSon [id number] CERVICAL SPINE 2-3 VIEWSExam: XR CERVICAL SPINE 2-3 VIEWS Clinical History: Chronic neck pain Reference Exam: No comparison FINDINGS: The cervical vertebral elements are of appropriate height, and alignment. Minor anterior spondylosis primarily at C6. Minor disc space height loss at C6-C7. The other disc spaces are fairly well-maintained. No fractures or subluxations. The atlantoaxial relationships appear within the limits of normal. The visualized lung apices are clear. Impression: Minor degenerative changes at C6-C7. Negative for cervical spine compression or other fracture. No subluxation. Dictated on: 05/07/2024 1:19 PM This report has been electronically signed and approved by the interpreting Radiologist.NormalNot AvailableXR HIP 2 OR 3 VW LEFTon [id number] HIP 2 OR 3 VW LEFTExam: XR HIP 2 OR 3 VW LEFT Clinical History: Chronic bilateral hip pain Reference Exam: Right hip same date FINDINGS: The left hip joint is intact. Trabecular lines of stress aligned appropriately in the left proximalfemur; no fracture or osteonecrosis. No symphyseal diastases. No pelvic bone abnormality. The left SI joint and the sacral arcuate lines are thought to align appropriately. There are pelvic phleboliths. Nonobstructive abdominal bowel gas pattern. IMPRESSION: Negative for left hip fracture or osteonecrotic phenomenon. Dictated on: 05/07/2024 1:21 PM This report has been electronically signed and approved by the interpreting Radiologist.NormalNot AvailableXR HIP 2 OR 3 VW RIGHTon [id number] HIP 2 OR 3 VW RIGHTExam: XR HIP 2 OR 3 VW RIGHT Clinical History: Chronic bilateral hip pain Reference Exam: No comparison FINDINGS: Both hip joints are intact. Trabecular lines of stress aligned appropriately in each proximal femur; no fracture or osteonecrosis. No symphyseal diastases. No pelvic bone abnormality. The SI joints and the sacral arcuate lines are thought to align appropriately. There are pelvic phleboliths. Nonobstructive abdominal bowel gas pattern. IMPRESSION: Negative for fracture or osteonecrotic phenomenon. Dictated on: 05/07/2024 1:20 PM This report has been electronically signed and approved by the interpreting Radiologist.NormalNot AvailableXR LUMBAR SPINE 2-3 VIEWSon [id number] LUMBAR SPINE 2-3 VIEWSExam: XR LUMBAR SPINE 2-3 VIEWS Clinical History: Chronic low back pain Reference Exam: No comparison FINDINGS: There are 5 nonrib-bearing lumbar vertebral elements which are of appropriate height, contour, and alignment. The disc spaces are fairly well-maintained. No fractures or subluxations. The pedicles are not splayed. The sacroiliac joints and the sacral arcuate lines align appropriately. Smooth sacrococcygeal arch. Pelvic phleboliths. Nonobstructive abdominal bowel gas pattern. Impression: No acute lumbosacral spinal pathology is determined by routine radiographic assessment. Dictated on: 05/07/2024 1:22 PM This report has been electronically signed and approved by the interpreting Radiologist.NormalNot AvailableXR SHOULDER 2+ VIEWS LEFTon [id number] SHOULDER 2+ VIEWS LEFTExam: XR SHOULDER 2+ VIEWS LEFT Clinical History: Chronic left shoulder pain Reference Exam: No comparison FINDINGS: The left glenohumeral joint is intact. The proximal humerus is unremarkable. The AC joint is intact. No clavicular abnormality is identified. The sternoclavicular joint is intact. No scapular abnormality. No rib fracture, pneumothorax, or apical lung abnormality is identified. IMPRESSION: No acute abnormality is identified regional to the left shoulder. Dictated on: 05/07/2024 1:21 PM This report has been electronically signed and approved by the interpreting Radiologist.NormalNot AvailableXR SHOULDER 2+ VIEWS RIGHTon [id number] SHOULDER 2+ VIEWS RIGHTExam: XR SHOULDER 2+ VIEWS RIGHT Clinical History: Chronic right shoulder pain Reference Exam: No comparison FINDINGS: The right glenohumeral joint is intact. The proximal humerus is unremarkable. The AC joint is intact. No clavicular abnormality is identified. The sternoclavicular joint is intact. No scapular abnormality. No rib fracture, pneumothorax, or apical lung abnormality is identified. IMPRESSION: No acute abnormality is identified regional to the right shoulder. Dictated on: 05/07/2024 1:22 PM This report has been electronically signed and approved by the interpreting Radiologist.NormalNot AvailableNo Panel Informationon [id number] [facility] Surgery CenterSurgical Pathology Reporton [id number] Pathology Report(NOTE) Path Number: [id number] -- Diagnosis -- A. ESOPHAGUS, MID, BIOPSY:-SQUAMOUS ESOPHAGEAL MUCOSA WITH NO SIGNIFICANT PATHOLOGIC ABNORMALITY. B. FUNDIC GLAND POLYP, BIOPSY:-FRAGMENTS OF FUNDIC GLAND POLYP. C. RANDOM COLON, BIOPSY:-COLONIC MUCOSA WITH NO SIGNIFICANT PATHOLOGIC ABNORMALITY. D. TERMINAL ILEUM, BIOPSY:-ILEAL MUCOSA WITH NO SIGNIFICANT PATHOLOGIC ABNORMALITY. Shawna Cline Electronically Signed Out 10/10/2023 Clinical Information Pre-Op Diagnosis: SCREENING FOR COLON CANCER, DYSPHAGIA Operative Findings: MID ESOPHAGEAL BX; FUNDIC GLAND POLYPS; RANDOM COLON; TERMINAL ILEUM Operation Performed: COLONOSCOPY POLYPECTOMY SNARE BIOPSY; EGD BIOPSY mj Source of Specimen A: MID ESOPHAGEAL BX B: FUNDLE GLAND POLYPS C: RANDOM COLON D: TERMINAL ILEUM Gross Description A. JELANI FREEMAN MID ESOPHAGEAL BX Received in formalin are two salvador-white tissue fragments from 0.1 to 0.2 cm and are 0.3 x 0.1 x 0.1 cm in aggregate. Entirely 1cs. B. JELANI JAHNS, FUNDIC GLAND POLYP Received in formalin are four rubbery, nodular salvador polyps from 0.8 to 1.5 cm and are 3.5 x 2.0 x 1.2 cm in aggregate. The largest is inked and bisected. Entirely 1cs. CToi FREEMAN, RANDOM COLON Received in formalin are five salvador-white tissue fragments from 0.1 to 0.6 cm and are 2.2 x 0.3 x 0.2 cm in aggregate. Entirely 1cs. DToi FREEMAN, TERMINAL ILEUM Received in formalin are three salvador-white tissue fragments from 0.2 to 0.5 cm and are 0.9 x 0.3 x 0.2 cm in aggregate. Entirely 1cs. jj tm Gian aGrza M.D./mj:10/09/2023 Microscopic Description A-D. Microscopic examination performed. Processing Lab: [place] [id number] Interpretation Performed at [place] [id number] SURGICAL PATHOLOGY CONSULTATION Patient Name: JELANI FREEMAN [facility] Rec: [id number] [facility] ANATOMIC PATHOLOGY [address] [place], [place] [address] [facility] Disease Panelon 10-02-2023 Gliadin Deam Pep IgA0.9 U/mLNormal<7.0St. [facility]'S HospitalComment on above: Result Comment: CELIAC INTERPRETATION <7.0 Negative 7.0-10.0 Equivocal >10.0 Positive units: U/mLPerformed By: #### CELP #### [employer] [address] [place] [address] Newspaper Delivery Driver: David Blair Transglutam IgA0.3 U/mLNormal<7.0St. [facility]'S HospitalComformerly [facility] on above:Result Comment: CELIAC INTERPRETATION <7.0 Negative 7.0-10.0 Equivocal >10.0 Positive units: U/mLPerformed By: #### CELP #### [facility] [employer] [address] [place], [place] [id number] Newspaper Delivery Driver: Ruben Blair Pep IgG<0.4Normal<7.0St. [facility]'S HospitalComment on above:Result Comment: CELIAC INTERPRETATION <7.0 Negative 7.0-10.0 Equivocal >10.0 Positive units: U/mLPerformed By: #### CELP #### [facility] [address] [place], [place] [id number] Newspaper Delivery Driver: JOSELITO Blaireliac Disease Panelon [id number] [Mass/Vol] 149 mg/uQOqafuy80-870Iyjch Tiffin HospitalComment on above:Performed By: #### CELP #### [employer] [address] [place], [place] [phone] Newspaper Delivery Driver: Sonja Blair 84-28-3874RGpxphgbm: Received: 08/04/23 Status: TATYANA Fletcher Num: [id number] Spec Type: Cytology Subm Dr: Rj Shah Tissues: A CYST FLUID (RT CYST WALL) Procedures: HE/2, Gross/Micro L4, Cyto Prepstain, PAPSTN Age/ Patient Sex Location Account Attending Physician Jelani Freeman 42/F LABELL [id number] Rj Shah SPEC NUM: RECD: 08/04/23 STATUS: TATYANA FLETCHER NUM: [id number] PETER: 08/01/[address]: Rj Shah ENTERED: 08/04/[address] [facility] [address]: Jones,Lab SPEC TYPE: Cytology DEPT: SWEETIE LAPRATIBHA ENTERED BY: [id number] RECV BY: [id number] ORDERED: HE/2, Gross/Micro L4, Cyto Prepstain, PAPSTN [...] are prepared. 1 cell blocks are prepared. (CC/pa) [facility] Codes 93669, 20469 Specimen: [id number] Received: 08/04/23 Status: TATYANA Fletcher Num: [id number] Spec Type: Cytology Subm Dr: Rj Shah Tissues: A CYST FLUID (RT CYST WALL) Procedures: HE/2, Gross/Micro L4, Cyto Prepstain, PAPSTN Patient: Jelani Freeman [id number] (Continued) Signed (signature on file) Bre Duvall MD 08/05/23 0950[facility] HospitalLSpecimen: [id number] Received: 08/01/23 Status: TATYANA Fletcher Num: [id number] Spec Type: Surgical Subm Dr: Rj Shah Tissues: A Ovary - Cyst, Non-Neoplastic (OVARIAN CYST WALL RT) Procedures: HE/3, Gross/Micro L4 Age/ Patient Sex Location Account Attending Physician Jelani Freeman 42/F LABELL [id number] Rj Shah SPEC NUM: [id number] RECD: 08/01/23 STATUS: TATYANA FLETCHER NUM: [id number] PETER: 08/01/[address]: Rj Shah ENTERED: 08/01/[address] [facility] [address]: Jones,Lab SPEC TYPE: Surgical DEPT: SWEETIE [...] 0.5 cm. Sectioning reveals a patent lumen. Bookbinder Apprentice sections are submitted in 2 cassettes as follows: A1 - Membranous tissues A2 - Fallopian tube Specimen: [id number] Received: 08/01/23 Status: MARÍAChandrakant Fletcher Num: [id number] Spec Type: Surgical Subm Dr: Rj Shah Tissues: A Ovary - Cyst, Non-Neoplastic (OVARIAN CYST WALL RT) Procedures: SANGITA/Julian, Gross/Micro L4 Patient: Jelani Freeman [id number] (Continued) Specimen: [id number] Received: 08/01/23 (Continued) Signed (signature on file) Britany Panda MD 08/04/23 1804 Specimen: [id number] Received: 08/01/23 Status: TATYANA Fletcher Num: [id number] Spec Type: Surgical Subm Dr: Rj Shah Tissues: A Ovary - Cyst, Non-Neoplastic (OVARIAN CYST WALL RT) Procedures: SANGITA/3 Gross/Micro L4 Patient: Jelani Freeman [id number] (Continued) Specimen: [id number] Received: 08/01/23 (Continued) CPT Codes 19364 Specimen: [id number] Received: 08/01/23 Status: TATYANA Fletcher Num: [id number] Spec Type: Surgical Subm Dr: Rj Shah Tissues: A Ovary - Cyst, Non-Neoplastic (OVARIAN CYST WALL RT) Procedures: HE/3, Gross/Micro L4 Patient: Jelani Freeman [id number] (Continued) Signed (signature on file) Britany Panda MD 08/04/[address] [place], [place] [address]EC 12-LEADon 82-54-[place]40[place], [place] [address] Electrocardiograph Report Signed Patient: JELANI FREEMAN MR#: [id number] : 1980 Acct:[id number] Age/Sex: 42 / F ADM Date: 07/25/23 Loc: [facility] Attending Dr: Rj Shah D.O. Ordering Physician: Rj Shah D.O. Date of Service: 07/25/23 Procedure(s): ECG 12 lead Accession Number(s): [id number] cc: [facility] Test Date: 2023-07-25 Pat Name: JELANI FREEMAN Department: Room: - Gender: Female Data Coder Operator: : 1980 Requested By: RJ SHAH Order Number: [id number] Reading MD: DONAL HENRY Measurements Intervals [place] Rate: 54 P: 56 AK: 163 QRS: 45 QRSD: 96 T: 34 QT: 433 QTc: 413 Interpretive Statements SINUS BRADYCARDIA No previous ECG available for comparison Electronically Signed On 07-26-2023 7:46:53 EST by DONAL HENRY Dictated By: Donal Henry D.O. Signed By: 07/26/23 0747 DD/ 1110 TD/TT: Rn Telephonic:Angel Munson MD - 07/26/[address] [address] Electrocardiograph Report Signed Patient: JELANI FREEMAN MR#: [id number] : 1980 Acct:[id number] Age/Sex: 42 / F ADM Date: 07/25/23 Loc: PST Attending Dr: Rj Shah D.O. Ordering Physician: Rj Shah D.O. 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 Signed By: 07/26/23 0747 DD/ 1110 TD/TT: Rn Telephonic: DEE DEE Damian 12-LEADOrdered By: Radiologist Radiology on 85-53-8599IHOWMetropolitan [facility] Work Phone: ECG 12-LEADon 22-07-6626Zwyuisnnj Study observation (narrative)DEE DEE [facility] with Auto Differentialon 35-70-1275Tdjvjdkqp (Bld) [#/Vol]0.03 10*3/uLBON SECOURS MERCY HEALTHBasophils/100 WBC (Bld)0 %0 - 2 %[facility] HEALTHEosinophils (Bld) [#/Vol]0.11 10*3/uLBON SECOURS MERCY HEALTHEosinophils/100 WBC (Bld)2 %0 - 5 %[facility]CY HEALTHErythrocyte distribution width (RBC) [Ratio]12.3 %12.1 - 15.2 %[facility] Hematocrit (Bld) [Volume fraction]40.0 %36.0 - 46.0 %[facility] Hemoglobin (Bld) [Mass/Vol]13.4 g/dL12.0 - 16.0 g/dLBON [facility] Immature granulocytes (Bld) [#/Vol]0.02 10*3/uLBON SECMOUNT CARMEL HEALTH SYSTEMImmature granulocytes/100 WBC (Bld)0 %0 - 5 %[facility] PREBLELymphocytes/100 WBC (Bld)32 %15 - 40 %[facility] HEALTHCARELymphocytes/100 WBC (Bld)2.24 %[facility]OS[facility]ITALH (RBC) [Entitic mass]29.8 pg26.0 - 34.0 pgBON SELECT MEDICAL SPECIALTY HOSPITAL - AKRONHC (RBC) [Mass/Vol]33.5 g/dL31.0 - 37.0 g/dLBON SELECT MEDICAL SPECIALTY HOSPITAL - AKRONV (RBC) [Entitic vol]88.9 fL80.0 - 100.0 fLMARY WASHINGTON HEALTHCARE Monocytes/100 WBC (Bld)7 %4 - 8 %[facility]ALTHCAREMonocytes/100 WBC (Bld) 0.46 %[facility] HEALTHCARENeutrophils/100 WBC (Bld)59 %47 - 75 %[facility] HEALTHCAREPlatelet mean volume (Bld) [Entitic vol]8.3 fL6.0 - 12.0 fLMARY WASHINGTON HEALTHCAREPlatelets (Bld) [#/Vol]341 10*3/uLBON [facility] RBC (Bld) [#/Vol]4.50 10*6/uL4.00 - 5.20 m/uLBON KETTERING HEALTH PREBLESegmented neutrophils/100 WBC (Bld)4.18 %[facility] HEALTHCAREWBC other (Bld) [#/Vol] 7.0B[facility]ICAL CENTEROURS REEDSBURG AREA MEDICAL CENTERCBC with Diffon 06-13-2023 Abs. Basophil0.03 k/uLNormal0.00-0.20Mer[facility] Homero HospitalComment on above: Performed By: #### CP, CDP #### [facility] [address] [place] [address] Newspaper Delivery Driver: Fidel Shultz.Imm.Granulocyte0.02 k/uLNormal0.00-0.30[facility] HospitalComformerly [facility] on above:Performed By: #### CP, CDP #### [facility] [address] [place] [address] Newspaper Delivery Driver: Fidel Shultz.Neutrophil (Seg)4.18 k/uLNormal2.5-7.0[facility] HospitalComment on above:Performed By: #### CP, CDP #### [facility] [address] [place] [address] Newspaper Delivery Driver: Angel Valdes MDBasophils/100 WBC (Bld)0 %Normal0-2MVeterans Health AdministrationComment on above:Performed By: #### CP, CDP #### [facility] [address] [place] [address] Newspaper Delivery Driver: Angel Valdes MDEosinophils (Bld) [#/Vol]0.11 10*3/uLNormal 0.00-0.40[facility] on above:Performed By: #### CP, CDP #### [facility] [address] [place] [address] Newspaper Delivery Driver: MAIN Shultzosinophils/100 WBC (Bld)2 %Normal0-5[facility] on above:Performed By: #### CP, CDP #### [facility] [address] [place] [address] Newspaper Delivery Driver: Angel Valdes MDErythrocyte distribution width (RBC) [Ratio]12.3 % Qdlczp49.1-15.2MVeterans Health AdministrationComment on above:Performed By: #### CP, CDP #### [facility] [address] [place], [place] [phone] Newspaper Delivery Driver: Angel Valdes MDHematocrit (Bld) [Volume fraction]40.0 %Normal 36.0-46.0[facility] Barberton Campusment on above:Performed By: #### CP, CDP #### [facility] [address] [place] [phone] Newspaper Delivery Driver: Angel Valdes MDHemoglobin (Bld) [Mass/Vol]13.4 g/dLNormal 12.0-16.0[facility] HospitalComment on above:Performed By: #### CP, CDP #### [facility] [address] [place] [phone] Newspaper Delivery Driver: Angel Valdes MDImmature granulocytes/100 WBC (Bld)0 %Normal0-5 [facility] on above:Performed By: #### CP, CDP #### [facility] [address] [place] [phone] Newspaper Delivery Driver: Angel Valdes MDLymphocytes (Bld) [#/Vol]2.24 10*3/uLNormal 1.00-4.80[facility] HospitalComment on above:Performed By: #### CP, CDP #### [facility] [address] [place] [phone] Newspaper Delivery Driver: Ita Shultzmphocytes/100 WBC (Bld)32 %Kzbbyg66-94BvzmqSumma Health Akron Campus on above:Performed By: #### CP, CDP #### [facility] [address] [place] [phone] Newspaper Delivery Driver: BARTOLO ShultzCH (RBC) [Entitic mass]29.8 wkRtdhtz74.0-34.0 [facility] HospitalComment on above:Performed By: #### CP, CDP #### [facility] [address] [place] [address] Newspaper Delivery Driver: BARTOLO ShultzCHC (RBC) [Mass/Vol]33.5 g/gBJyrmau19.0-37.0[facility] HospitalComment on above:Performed By: #### CP, CDP #### [facility] [address] [place] [phone] Newspaper Delivery Driver: BARTOLO ShultzCV (RBC) [Entitic vol]88.9 kALmrpjj13.0-100.0 [facility] HospitalComment on above:Performed By: #### CP, CDP #### [facility] [address] [place] [phone] Newspaper Delivery Driver: BARTOLO Shultzonocytes (Bld) [#/Vol]0.46 10*3/uLNormal0.00-1.00 [facility] HospitalComformerly [facility] on above:Performed By: #### CP, CDP #### [facility] [address] [place] [phone] Newspaper Delivery Driver: BARTOLO Shultzonocytes/100 WBC (Bld)7 %Normal4-8[facility] HospitalComment on above:Performed By: #### CP, CDP #### [facility] [address] [place] [address] Newspaper Delivery Driver: Lilibeth Shultzophil (Seg)59 %Ufxllx53-63BhxdqMiddletown HospitalComment on above:Performed By: #### CP, CDP #### [facility] [address] [place] [phone] Newspaper Delivery Driver: JAY Shultzlatelet mean volume (Bld) [Entitic vol]8.3 fL Normal6.0-12.0[facility] HospitalComment on above:Performed By: #### CP, CDP #### [facility] [address] [place], [place] [address] Newspaper Delivery Driver: Jovanni Shultz (Bld) [#/Vol]341 10*3/bTHwuwdc618-743 [facility] HospitalComment on above:Performed By: #### CP, CDP #### [facility] [address] [place], [place] [address] Newspaper Delivery Driver: GUERA ShultzBC (Bld) [#/Vol]4.50 10*6/uLNormal4.00-5.20[facility] HospitalComment on above:Performed By: #### CP, CDP #### [facility] [address] [place] [address] Newspaper Delivery Driver: RAQUEL Shultz (Bld) [#/Vol]7.0 10*3/uLNormal3.5-11.0[facility] HospitalComment on above:Performed By: #### CP, CDP #### [facility] [address] [place] [address] Newspaper Delivery Driver: JOSELITO Shultzomp Metabolic Profon 11-02-7035Wvrrfuw [Mass/Vol] 4.2 g/dLNormal3.5-5.2MVeterans Health AdministrationComment on above:Performed By: #### CP, CDP #### [facility] [address] [place] [address] Newspaper Delivery Driver: Brandyn Shultzline Phos75 U/HKjezka39-335YrepiMiddletown HospitalComment on above:Performed By: #### CP, CDP #### [facility] [address] [place] [address] Newspaper Delivery Driver: Angel Valdes MDALT [Catalytic activity/Vol]16 U/LNormal5-33[facility] HospitalComment on above:Performed By: #### CP, CDP #### [facility] [address] [place] [phone] Newspaper Delivery Driver: Angel Valdes MDAnion gap [Moles/Vol]11 mmol/LNormal9-17[facility] HospitalComment on above:Performed By: #### CP, CDP #### [facility] [address] [place] [address] Newspaper Delivery Driver: Angel Valdes MDAST [Catalytic activity/Vol]15 U/LNormal<32MerClifton-Fine HospitalComment on above:Performed By: #### CP, CDP #### [facility] [address] [place] [address] Newspaper Delivery Driver: Angel Valdes MDBilirubin [Mass/Vol]0.3 mg/dLNormal0.3-1.2MVeterans Health AdministrationComment on above:Performed By: #### CP, CDP #### [facility] [address] [place] [address] Newspaper Delivery Driver: Angel Valdes MDBUN/CRE Gagwq71Ttradn4-78Vzhct [facility] Comment on above:Performed By: #### CP, CDP #### [facility] [address] [place] [address] Newspaper Delivery Driver: Angel Valdes MDCalcium [Mass/Vol]10.3 mg/dLNormal8.6-10.4[facility] HospitalComment on above:Performed By: #### CP, CDP #### [facility] [address] [place] [address] Newspaper Delivery Driver: Angel Valdes MDChloride [Moles/Vol]101 mmol/CGniotx94-761JxltqMiddletown HospitalComment on above:Performed By: #### CP, CDP #### [facility] [address] [place] [address] Newspaper Delivery Driver: Angel Valdes MDCO2 [Moles/Vol]25 mmol/XRfizsr75-33FafofMiddletown HospitalComment on above:Performed By: #### CP, CDP #### [facility] [address] [place] [address] Newspaper Delivery Driver: JOSELITO Shultzreatinine [Mass/Vol]0.7 mg/dLNormal0.5-0.9[facility] on above:Performed By: #### CP, CDP #### [facility] [address] [place] [phone] Newspaper Delivery Driver: Angel Valdes MDGFR/1.73 sq M.predicted among non-blacks MDRD (S/P/Bld) [Vol rate/Area]mL/min/{1.73_m2}Normal>60[facility] on above:Result Comment: These results are not intended for [...] or following therapy that affects renal tubular secretion.Performed By: #### CP, CDP #### [facility] [address] [place] [address] Newspaper Delivery Driver: Angel Valdes MDGlucose [Mass/Vol]120 mg/wJOrpy56-80CfofiVeterans Health AdministrationComformerly [facility] on above:Performed By: #### CP, CDP #### [facility] [address] [place] [address] Newspaper Delivery Driver: JAY Shultzotassium [Moles/Vol]4.0 mmol/LNormal3.7-5.3Mohiohealth doctors hospitaly [facility] CenterComformerly [facility] on above:Performed By: #### CP, CDP #### [facility] [address] [place] [address] Newspaper Delivery Driver: JAY Shultzrotein [Mass/Vol]7.4 g/dLNormal6.4-8.3[facility] HospitalComment on above:Performed By: #### CP, CDP #### [facility] [address] [place], [place] [address] Newspaper Delivery Driver: DIANA Shultzodium [Moles/Vol]137 mmol/TXncwgu577-845XcrefMiddletown HospitalComment on above:Performed By: #### CP, CDP #### [facility] [address] [place] [address] Newspaper Delivery Driver: Angel Valdes MDUrea nitrogen [Mass/Vol]8 mg/dLNormal6-20[facility] HospitalComment on above:Performed By: #### CP, CDP #### [facility] [address] [place] [address] Newspaper Delivery Driver: JOSELITO Shultzomprehensive Metabolic Panelon 30-90-8618Bpyhrpb [Mass/Vol]4.2 g/dL3.5 - 5.2 g/dLBON SECWE[facility]CASIEU [facility]ITAL HEALTHALP [Catalytic activity/Vol]75 U/L35 - 104 U/LBON SEC[facility]ERY HEALTHALT [Catalytic activity/Vol]16 U/L5 - 33 U/LBON SECOURS [facility] HOSPITALAnion gap [Moles/Vol]11 mmol/L9 - 17 mmol/LBON SECOURS [facility] HEALTHAST [Catalytic activity/Vol]15 U/L NINF - 32 U/LBON SECOURS [facility] HEALTHBilirubin [Mass/Vol]0.3 mg/dL0.3 - 1.2 mg/dLBON SECOURS [facility] HEALTHCalcium [Mass/Vol]10.3 mg/dL8.6 - 10.4 mg/dLBON SECOURS [facility]ENTERY HEALTHChloride [Moles/Vol]101 mmol/L98 - 107 mmol/LBON SECOURS [facility]ENTERY HEALTHCO2 [Moles/Vol]25 mmol/L20 - 31 mmol/LBON [facility]RS [facility] Creatinine [Mass/Vol]0.7 mg/dL0.5 - 0.9 mg/dLBON SECOURS [facility]ENTERY HEALTHGFR/1.73 sq M.predicted MDRD (S/P/Bld) [Vol rate/Area]- PINFBON KETTERING HEALTH PREBLEComment on above: These results are not intended [...] therapy that affects renal tubular secretion. Glucose [Mass/Vol]120 mg/lNOzvv90 - 99 mg/dLBON [facility] Interpretation and review of laboratory resultsAbnormalMARY [facility] Potassium [Moles/Vol]4.0 mmol/L3.7 - 5.3 mmol/LBON [facility]ALTH PREBLEProtein [Mass/Vol]7.4 g/dL6.4 - 8.3 g/dLBON KETTERING HEALTH PREBLESodium [Moles/Vol]137 mmol/L135 - 144 mmol/LBON [facility]ALTH PREBLEUrea nitrogen [Mass/Vol]8 mg/dL6 - 20 mg/dLBON KETTERING HEALTH PREBLEUrea nitrogen/Creatinine [Mass ratio]11 mg/mg9 - 20BON [facility]BRID[facility] REGIONAL HOSPITALAlanine aminotransferase [Enzymatic activity/volume] in Serum or PlasmaOrdered By: Surinder Del Castillo on 16-35-3215DPN [Catalytic activity/Vol]16 U/L7-52[facility] HospitalAlbumin [Mass/volume] in Serum or Plasma by Bromocresol green (BCG) dye binding methoOrdered By: Surinder Del Castillo on 16-10-7971Zngnlgd BCG dye [Mass/Vol]4.3 g/dL3.5-5.7FPomerene HospitalAlkaline phosphatase [Enzymatic activity/volume] in Serum or PlasmaOrdered By: Surinder Del Castillo on 52-81-7051HDB [Catalytic activity/Vol]66 U/L15-558VshsdladuAultman Alliance Community HospitalAspartate aminotransferase [Enzymatic activity/volume] in Serum or PlasmaOrdered By: Surinder Del Castillo on 79-20-0375LYF [Catalytic activity/Vol]16 U/J62-81HhuwxayraAultman Alliance Community HospitalBasophils Auto (Bld) [#/Vol]Ordered By: Surinder Del Castillo on 12-24-2022 Basophils (Bld) [#/Vol]0.0 10*3/uL0.0-0.2FPomerene Hospital Basophils/100 WBC Auto (Bld)Ordered By: Surinder Del Castillo on 85-30-2786Oejxoggil/100 WBC (Bld)0.5 %.[facility] HospitalBilirubin.total [Mass/volume] in Serum or PlasmaOrdered By: Surinder Del Castillo on 30-02-3334Yznmkrigt [Mass/Vol]0.3 mg/dL0.3-1.0[facility] HospitalCalcium [Mass/volume] in Serum or PlasmaOrdered By: Surinder Del Castillo on 16-64-8481Cyzdcrp [Mass/Vol]11.0 mg/dL8.6-10.3 [facility] HospitalCarbon dioxide, total [Moles/volume] in Serum or PlasmaOrdered By: Surinder Del Castillo on 40-53-1932TR1 [Moles/Vol]29.3 mmol/L21.0-31.0 [facility] HospitalChloride [Moles/volume] in Serum or Plasma Ordered By: Surinder Del Castillo on 11-60-9372Tsqhyapv [Moles/Vol]105 mmol/L98-107 [facility] HospitalCholesterol [Mass/volume] in Serum or Plasma Ordered By: Surinder Del Castillo on 47-27-0360Nzggpbltexp [Mass/Vol]156 mg/sV116-956 [facility] HospitalComment on above:Chol less than 200 mg/dl low riskChol 201-239 mg/dl borderline riskChol 240 mg/dl and greater high risk Cholesterol in LDL Calc [Mass/Vol]Ordered By: Surinder Del Castillo on 12-24-2022 Cholesterol in LDL [Mass/Vol]48 mg/dL0-100[facility] Comment on above:LDL ATP III CLASSIFICATIONLDL less than 100 mg/dL OptimalLDL 100-129 mg/dL Near or above lpwiyqqVQO335-015 mg/dL Borderline highLDL 160-189 mg/dL HighLDL greater than 189 mg/dL Very highCholesterol in VLDL Calc [Mass/Vol]Ordered By: Surinder Del Castillo on 15-93-8789Ytldqjtskih in VLDL [Mass/Vol]60 mg/dLAultman Alliance Community HospitalCreatinine [Mass/volume] in Serum or PlasmaOrdered By: Surinder Del Castillo on 76-79-0787Tawhrxvjyt [Mass/Vol]0.74 mg/dL 0.60-1.20[facility] HospitalEmployee Comp Metabolic Panelon 31-98-0833Anstuhv [Mass/Vol]4.3 g/dLNormal3.5-5.7FPomerene HospitalComment on above:Performed By: #### PILLAR LIPID, PILLAR TSH, PILLAR CBC, PILLAR CMP #### [facility] [address] [place] [address] #### NICOTINE QUAL #### [facility] ,Albumin/Globulin [Mass ratio]1.7 {ratio}NormalAultman Alliance Community Hospital Comment on above:Performed By: #### PILLAR LIPID, PILLAR TSH, PILLAR CBC, PILLAR CMP #### [facility] [address] [place] [address] [place] #### NICOTINE QUAL #### [facility] ,ALP [Catalytic activity/Vol]66 U/LClwids29-775SilnikjluAultman Alliance Community Hospital Comment on above:Performed By: #### PILLAR LIPID, PILLAR TSH, PILLAR CBC, PILLAR CMP #### [facility] [address] [place] [address] #### NICOTINE QUAL #### [facility] ,ALT [Catalytic activity/Vol]16 U/LNormal7-52[facility] Comment on above:Performed By: #### PILLAR LIPID, PILLAR TSH, PILLAR CBC, PILLAR CMP #### [facility] [address] [place] [address] [place] #### NICOTINE QUAL #### [facility] ,Anion gap [Moles/Vol]10.4 mmol/LNormal6.0-15.0[facility] Comment on above:Performed By: #### PILLAR LIPID, PILLAR TSH, PILLAR CBC, PILLAR CMP #### [facility] [address] [place] [address] [place] #### NICOTINE QUAL #### [facility] ,AST [Catalytic activity/Vol]16 U/SVdnhoh10-27LresazmcsAultman Alliance Community Hospital Comment on above:Performed By: #### PILLAR LIPID, PILLAR TSH, PILLAR CBC, PILLAR CMP #### [facility] [address] [place] [address] [place] #### NICOTINE QUAL #### [facility] ,Bilirubin [Mass/Vol]0.3 mg/dLNormal0.3-1.0[facility] Comment on above:Performed By: #### PILLAR LIPID, PILLAR TSH, PILLAR CBC, PILLAR CMP #### [facility] [address] [place] [address] #### NICOTINE QUAL #### [facility] ,Calcium [Mass/Vol]11.0 mg/dLHigh8.6-10.3FPomerene Hospital Comment on above:Performed By: #### PILLAR LIPID, PILLAR TSH, PILLAR CBC, PILLAR CMP #### [facility] [address] [place] [address] #### NICOTINE QUAL #### [facility] ,Chloride [Moles/Vol]105 mmol/NSoxgst46-103QsjjzhlvxAultman Alliance Community Hospital Comment on above:Performed By: #### PILLAR LIPID, PILLAR TSH, PILLAR CBC, PILLAR CMP #### [facility] [address] [place] [address] [place] #### NICOTINE QUAL #### [facility] ,CO2 [Moles/Vol]29.3 mmol/SGqcwwm23.0-31.0[facility] Comment on above:Performed By: #### PILLAR LIPID, PILLAR TSH, PILLAR CBC, PILLAR CMP #### [facility] [address] [place] [address] [place] #### NICOTINE QUAL #### [facility] ,Creatinine [Mass/Vol]0.74 mg/dLNormal0.60-1.20[facility] Comment on above:Performed By: #### PILLAR LIPID, PILLAR TSH, PILLAR CBC, PILLAR CMP #### [facility] [address] [place] [address] [place] #### NICOTINE QUAL #### [facility] ,GFR/1.73 sq M.predicted MDRD (S/P/Bld) [Vol rate/Area]mL/min/{1.73_m2}Normal [facility] HospitalComment on above:Performed By: #### PILLAR LIPID, PILLAR TSH, PILLAR CBC, PILLAR CMP #### [facility] [address] [place] [address] #### NICOTINE QUAL #### [facility] ,Globulin (S) [Mass/Vol]2.5 g/dLNormalAultman Alliance Community HospitalComment on above:Performed By: #### PILLAR LIPID, PILLAR TSH, PILLAR CBC, PILLAR CMP #### [facility] [address] [place] [address] [place] #### NICOTINE QUAL #### [facility] ,Glucose [Mass/Vol]84 mg/tHFrynya73-124PeceduqwcAultman Alliance Community HospitalComment on above:Performed By: #### PILLAR LIPID, PILLAR TSH, PILLAR CBC, PILLAR CMP #### [facility] [address] [place] [address] [place] #### NICOTINE QUAL #### [facility] ,Potassium [Moles/Vol]3.7 mmol/LNormal3.5-5.1FPomerene Hospital Comment on above:Performed By: #### PILLAR LIPID, PILLAR TSH, PILLAR CBC, PILLAR CMP #### [facility] [address] [place] [address] [place] #### NICOTINE QUAL #### [facility] ,Protein [Mass/Vol]6.8 g/dLNormal6.4-8.9[facility] Community HospitalComment on above:Performed By: #### PILLAR LIPID, PILLAR TSH, PILLAR CBC, PILLAR CMP #### [facility] [address] [place] [address] #### NICOTINE QUAL #### [facility] ,Sodium [Moles/Vol]141 mmol/AZatxot367-185HtdpqbgavAultman Alliance Community Hospital Comment on above:Performed By: #### PILLAR LIPID, PILLAR TSH, PILLAR CBC, PILLAR CMP #### [facility] [address] [place] [address] #### NICOTINE QUAL #### [facility] ,Urea nitrogen [Mass/Vol]13 mg/dLNormal7-25[facility] Comment on above:Performed By: #### PILLAR LIPID, PILLAR TSH, PILLAR CBC, PILLAR CMP #### [address] #### NICOTINE QUAL #### [facility] ,Employee Complete Blood Counton 49-69-0600Irwmqxcgn (Bld) [#/Vol]0.0 10*3/uL Normal0.0-0.2FPomerene HospitalComment on above:Result Comment: PERFORMED BY: [place] [address] PATHOLOGIST MONORAIL OPERATOR LUCERO AREVALO M.D.Performed By: #### PILLAR LIPID, PILLAR TSH, PILLAR CBC, PILLAR CMP #### [address] #### NICOTINE QUAL #### [facility] ,Basophils/100 WBC (Bld)0.5 %Normal.[facility] Community HospitalComment on above:Performed By: #### PILLAR LIPID, PILLAR TSH, PILLAR CBC, PILLAR CMP #### [address] #### NICOTINE QUAL #### [facility] ,Eosinophils (Bld) [#/Vol]0.1 10*3/uLNormal0.0-0.45[facility] HospitalComment on above:Performed By: #### PILLAR LIPID, PILLAR TSH, PILLAR CBC, PILLAR CMP #### [address] #### NICOTINE QUAL #### [facility] ,Eosinophils/100 WBC (Bld)1.1 %Normal.[facility] HospitalComment on above:Performed By: #### PILLAR LIPID, PILLAR TSH, PILLAR CBC, PILLAR CMP #### [address] #### NICOTINE QUAL #### [facility] ,Erythrocyte distribution width (RBC) [Ratio]12.8 %Pijnco96.9-15.3FPomerene HospitalComment on above:Performed By: #### PILLAR LIPID, PILLAR TSH, PILLAR CBC, PILLAR CMP #### [place] [address] [place] #### NICOTINE QUAL #### [facility] ,Hematocrit (Bld) [Volume fraction]38.9 %Iwjqlm59.0-46.4FPomerene HospitalComment on above:Performed By: #### PILLAR LIPID, PILLAR TSH, PILLAR CBC, PILLAR CMP #### [place] [address] [place] #### NICOTINE QUAL #### [facility] ,Hemoglobin (Bld) [Mass/Vol]13.2 g/yABotakr23.8-15.4FPomerene HospitalComment on above:Performed By: #### PILLAR LIPID, PILLAR TSH, PILLAR CBC, PILLAR CMP #### [place] [address] [place] #### NICOTINE QUAL #### [facility] ,Lymphocytes (Bld) [#/Vol]2.2 10*3/uLNormal1.00-4.8[facility] HospitalComment on above:Performed By: #### PILLAR LIPID, PILLAR TSH, PILLAR CBC, PILLAR CMP #### [address] #### NICOTINE QUAL #### [facility] ,Lymphocytes/100 WBC (Bld)30.4 %Normal.[facility] HospitalComment on above:Performed By: #### PILLAR LIPID, PILLAR TSH, PILLAR CBC, PILLAR CMP #### [address] #### NICOTINE QUAL #### [facility] ,MCH (RBC) [Entitic mass]30.8 kmMmgpds60.7-34.3FPomerene Hospital Comment on above:Performed By: #### PILLAR LIPID, PILLAR TSH, PILLAR CBC, PILLAR CMP #### [address] #### NICOTINE QUAL #### [facility] ,MCV (RBC) [Entitic vol]90.9 hXBkugkm93-854HmwxeudpuAultman Alliance Community Hospital Comment on above:Performed By: #### PILLAR LIPID, PILLAR TSH, PILLAR CBC, PILLAR CMP #### [address] #### NICOTINE QUAL #### [facility] ,Mean Corpuscular HGB Conc33.9 g/mVAirztu94.0-35.0[facility] HospitalComment on above:Performed By: #### PILLAR LIPID, PILLAR TSH, PILLAR CBC, PILLAR CMP #### [address] #### NICOTINE QUAL #### [facility] ,Monocytes (Bld) [#/Vol]0.7 10*3/uLNormal0.0-0.8[facility] HospitalComment on above:Performed By: #### PILLAR LIPID, PILLAR TSH, PILLAR CBC, PILLAR CMP #### [facility] [address] [place] [address] [place] #### NICOTINE QUAL #### [facility] ,Monocytes/100 WBC (Bld)9.6 %Normal.[facility] Community HospitalComment on above:Performed By: #### PILLAR LIPID, PILLAR TSH, PILLAR CBC, PILLAR CMP #### [facility] [address] [place] [address] [place] #### NICOTINE QUAL #### [facility] ,Neutrophils (Bld) [#/Vol]4.2 10*3/uLNormal1.8-7.7FPomerene HospitalComment on above:Performed By: #### PILLAR LIPID, PILLAR TSH, PILLAR CBC, PILLAR CMP #### [address] #### NICOTINE QUAL #### [facility] ,Neutrophils/100 WBC (Bld)58.4 %Normal.[facility] HospitalComment on above:Performed By: #### PILLAR LIPID, PILLAR TSH, PILLAR CBC, PILLAR CMP #### [facility] [address] [place] [address] [place] #### NICOTINE QUAL #### [facility] ,NRBC%0.2 /100{WBC}Normal0-0.5FPomerene HospitalComment on above: Performed By: #### PILLAR LIPID, PILLAR TSH, PILLAR CBC, PILLAR CMP #### [facility] [address] [place] [address] [place] #### NICOTINE QUAL #### [facility] ,Platelet mean volume (Bld) [Entitic vol]7.5 fLNormal6.3-10.7FPomerene HospitalComment on above:Performed By: #### PILLAR LIPID, PILLAR TSH, PILLAR CBC, PILLAR CMP #### [facility] [address] [place] [address] [place] #### NICOTINE QUAL #### [facility] ,Platelets (Bld) [#/Vol]404 10*3/tUHtfsat523-236IlnssjfaeAultman Alliance Community HospitalComment on above:Performed By: #### PILLAR LIPID, PILLAR TSH, PILLAR CBC, PILLAR CMP #### [facility] [address] [place] [address] [place] #### NICOTINE QUAL #### [facility] ,RBC (Bld) [#/Vol]4.28 10*6/uLNormal3.60-5.00[facility] Comment on above:Performed By: #### PILLAR LIPID, PILLAR TSH, PILLAR CBC, PILLAR CMP #### [facility] [address] [place] [address] #### NICOTINE QUAL #### [facility] ,WBC (Bld) [#/Vol]7.2 10*3/uLNormal3.8-11.6FPomerene Hospital Comment on above:Performed By: #### PILLAR LIPID, PILLAR TSH, PILLAR CBC, PILLAR CMP #### [facility] [address] [place] [address] [place] #### NICOTINE QUAL #### [facility] ,Employee Lipid Profileon 15-92-2903Qrfyybtdggh [Mass/Vol]156 mg/cTMjvnxu573-071 [facility] HospitalComment on above:Result Comment: Chol less than 200 mg/dl low risk Chol 201-239 mg/dl borderline risk Chol 240 mg/dl and greater high riskPerformed By: #### PILLAR LIPID, PILLAR TSH, PILLAR CBC, PILLAR CMP #### [facility] [address] [place] [address] [place] #### NICOTINE QUAL #### [facility] ,Cholesterol in HDL [Mass/Vol]48 mg/yVLwmbgf08-50GtgsgrkdqAultman Alliance Community HospitalComment on above:Result Comment: HDL CHOL ATP-III CLASSIFICATION Cardiovascular Risk HDL > or equal to 60 mg/dL LOW HDL < 40 mg/dL HIGHPerformed By: #### PILLAR LIPID, PILLAR TSH, PILLAR CBC, PILLAR CMP #### [facility] [address] [place] [address] [place] #### NICOTINE QUAL #### [facility] ,Cholesterol.total/Cholesterol in HDL [Mass ratio]3.3 {ratio}Normal<5.0[facility] HospitalComment on above:Performed By: #### PILLAR LIPID, PILLAR TSH, PILLAR CBC, PILLAR CMP #### [facility] [address] [place] [address] [place] #### NICOTINE QUAL #### [facility] ,LDL Cholesterol,Fexpmndogo80 mg/dLNoformerly [facility]0-100[facility] Comment on above:Result Comment: LDL ATP III CLASSIFICATION LDL less than 100 mg/dL Optimal LDL 100-129 mg/dL Near or above optimal LDL 130-159 mg/dL Borderline high LDL 160-189 mg/dL High LDL greater than 189 mg/dL Very highPerformed By: #### PILLAR LIPID, PILLAR TSH, PILLAR CBC, PILLAR CMP #### [place] [address] [place] #### NICOTINE QUAL #### [facility] ,Triglyceride w/Bkwxfb320 mg/dLHigh0-149[facility] HospitalComment on above:Result Comment: TRIG ATP III CLASSIFICATION TRIG less than 150 mg/dL Normal TRIG 150-199 mg/dL Borderline high TRIG 200-500 mg/dL High TRIG greater than 500 mg/dL Very high Standard traceable to the Center for Disease Conrtrol and Prevention (CDC) test method.Performed By: #### PILLAR LIPID, PILLAR TSH, PILLAR CBC, PILLAR CMP #### [place] [address] [place] #### NICOTINE QUAL #### [facility] ,VLDL NBXDXKKASVZ94 mg/dLNoSuburban Community Hospital & Brentwood HospitalComment on above:Performed By: #### PILLAR LIPID, PILLAR TSH, PILLAR CBC, PILLAR CMP #### [facility] [address] [place] [address] [place] #### NICOTINE QUAL #### [facility] ,Employee Thyroid Stim Hormoneon 56-65-2307Clqwealv Thyroid Stim Hormone3.29 u[iU]/mLNormal0.45-5.33[facility] HospitalComment on above:Result Comment: PERFORMED BY: [facility] [address] [place] [address] PATHOLOGIST MONORAIL OPERATOR LUCERO AREVALO M.D.Performed By: #### PILLAR LIPID, PILLAR TSH, PILLAR CBC, PILLAR CMP #### [facility] [address] #### NICOTINE QUAL #### [facility] ,Eosinophils Auto (Bld) [#/Vol]Ordered By: Surinder Del Castillo on 54-57-9738Eexwcqabrco (Bld) [#/Vol]0.1 10*3/uL0.0-0.45[facility] HospitalEosinophils/100 WBC Auto (Bld)Ordered By: Surinder Del Castillo on 91-57-7317Gukphbhwqyy/100 WBC (Bld)1.1 %.[facility] HospitalErythrocyte distribution width Auto (RBC) [Ratio]Ordered By: Surinder Del Castillo on 39-86-4562Jfzzbkxmmhn distribution width (RBC) [Ratio]12.8 %11.9-15.3FPomerene HospitalGlobulin Calc (S) [Mass/Vol]Ordered By: Surinder Del Castillo on 84-99-5189Qtvapxmu (S) [Mass/Vol]2.5 g/dL [facility] HospitalGlucose [Mass/volume] in Serum or PlasmaOrdered By: Surinder Del Castillo on 47-55-8468Rutqhmc [Mass/Vol]84 mg/bA46-792SjjatpuwsAultman Alliance Community HospitalHematocrit Auto (Bld) [Volume fraction]Ordered By: Surinder Del Castillo on 62-30-1158Azeocchptq (Bld) [Volume fraction]38.9 %34.0-46.4FPomerene HospitalHemoglobin [Mass/volume] in BloodOrdered By: Surinder Del Castillo on 67-36-5219Qedhufdjsh (Bld) [Mass/Vol]13.2 g/dL11.8-15.4FPomerene HospitalLeukocytes [#/volume] corrected for nucleated erythrocytes in Blood by Automated counOrdered By: Surinder Del Castillo on 36-28-9737WJD corrected for nucl RBC Auto (Bld) [#/Vol]7.2 10*3/uL3.8-11.6FPomerene Hospital Lymphocytes Auto (Bld) [#/Vol]Ordered By: Surinder Del Castillo on 92-16-7072Kbxmqdazqef (Bld) [#/Vol]2.2 10*3/uL1.00-4.8[facility] HospitalLymphocytes/100 WBC Auto (Bld)Ordered By: Surinder Del Castillo on 12-55-2127Aoyzfqzxiav/100 WBC (Bld)30.4 %.[facility] HospitalH Auto (RBC) [Entitic mass]Ordered By: Surinder Del Castillo on 99-30-1147BHN (RBC) [Entitic mass]30.8 pg24.7-34.3FPomerene HospitalMCHC Auto (RBC) [Mass/Vol]Ordered By: Surinder Del Castillo on 45-20-2182CPMU (RBC) [Mass/Vol]33.9 g/dL32.0-35.0[facility] HospitalMCV Auto (RBC) [Entitic vol]Ordered By: Surinder Del Castillo on 40-25-3092ISN (RBC) [Entitic vol]90.9 iP49-690ChtusrdgyAultman Alliance Community HospitalMonocytes Auto (Bld) [#/Vol]Ordered By: Surinder Del Castillo on 08-22-7322Vebbzzqxh (Bld) [#/Vol]0.7 10*3/uL 0.0-0.8[facility] HospitalMonocytes/100 WBC Auto (Bld)Ordered By: Surinder Del Castillo on 81-40-9491Reepywhoo/100 WBC (Bld)9.6 %.[facility] HospitalNeutrophils Auto (Bld) [#/Vol]Ordered By: Surinder Del Castillo on 12-24-2022 Neutrophils (Bld) [#/Vol]4.2 10*3/uL1.8-7.7FPomerene Hospital Neutrophils/100 WBC Auto (Bld)Ordered By: Surinder Del Castillo on 12-24-2022 Neutrophils/100 WBC (Bld)58.4 %.[facility] HospitalNicotine Metabolite, Qualon 40-97-8336Hvzghaty MetaboliteNegativeNormalCutoff=25[facility] HospitalComment on above:Result Comment: Performed at: BN - [facility] [id number] Newspaper Delivery Driver: Jesi Lombardo MD, Phone: [phone] PERFORMED BY: [facility] [address] [place] [address] PATHOLOGIST MONORAIL OPERATOR LUCERO AREVALO M.D.Performed By: #### PILLAR LIPID, PILLAR TSH, PILLAR CBC, PILLAR CMP #### [facility] [address] #### NICOTINE QUAL #### [facility] ,No Panel InformationOrdered By: Surinder Del Castillo on 41-02-5687Enfzytmso GFR (CKD-EPI) > 60.0 mL/MinAultman Alliance Community HospitalNicotine MetaboliteNegative Cutoff=25[facility] HospitalComment on above:Performed at: - [facility] [address] [id number] Director: Jesi Lombardo MD, Phone: [phone] Creatinine Clearance (ChemN/AFPomerene HospitalNucleated erythrocytes [Presence] in Blood by Automated countOrdered By: Surinder Del Castillo on 49-26-3020Exzwwwtxy RBC Auto Ql (Bld)0.2 /100{WBC}0-0.5FPomerene HospitalPlatelet mean volume Auto (Bld) [Entitic vol]Ordered By: Surinder Del Castillo on 30-35-7839Acnvrltk mean volume (Bld) [Entitic vol]7.5 fL6.3-10.7FPomerene HospitalPlatelets Auto (Bld) [#/Vol]Ordered By: Surinder Del Castillo on 17-47-0562Uuhzarziz (Bld) [#/Vol]404 10*3/uL 150-450[facility] HospitalPotassium [Moles/volume] in Serum or PlasmaOrdered By: Surinder Del Castillo on 65-37-8452Kpgherogz [Moles/Vol]3.7 mmol/L3.5-5.1 [facility] HospitalProtein [Mass/volume] in Serum or PlasmaOrdered By: Surinder Del Castillo on 96-89-6109Dtswnxf [Mass/Vol]6.8 g/dL6.4-8.9[facility] HospitalRBC Auto (Bld) [#/Vol]Ordered By: Surinder Del Castillo on 90-12-3473QND (Bld) [#/Vol]4.28 10*6/uL3.60-5.00The Christ Hospitalerum or plasma albumin/globulin mass ratioOrdered By: Surinder Del Castillo on 12-24-2022 Albumin/Globulin [Mass ratio]1.7 {ratio}The Christ Hospitalerum or plasma anion gap determinationOrdered By: Surinder Del Castillo on 50-66-2632Mbepb gap [Moles/Vol]10.4 mmol/L6.0-15.0The Christ Hospitalerum or plasma high density lipoprotein (HDL) cholesterol measurementOrdered By: Surinder Del Castillo on 04-37-1551Jqyohzjvqad in HDL [Mass/Vol]48 mg/gF25-87XuuwrslyoAultman Alliance Community HospitalComment on above:HDL CHOL ATP-III CLASSIFICATION Cardiovascular RiskHDL > or equal to 60 mg/dL LOWHDL < 40 mg/dL HIGHSerum or plasma total cholesterol/high density lipoprotein (HDL) cholesterol mass ratOrdered By: Surinder Del Castillo on 78-40-8240Ndegemiyxsy.total/Cholesterol in HDL [Mass ratio]3.3 {ratio} <5.0The Christ Hospitalodium [Moles/volume] in Serum or Plasma Ordered By: Surinder Del Castillo on 18-41-0852Rbnohh [Moles/Vol]141 mmol/K379-098EgnrjcgfbAultman Alliance Community HospitalThyrotropin [Units/volume] in Serum or PlasmaOrdered By: Surinder Del Castillo on 34-87-0484GHI Qn3.29 m[IU]/L0.45-5.33[facility] HospitalTriglyceride [Mass/volume] in Serum or PlasmaOrdered By: Surinder Del Castillo on 45-88-6623Uywevzyagphm [Mass/Vol]302 mg/dL0-149[facility] Comment on above:TRIG ATP III CLASSIFICATIONTRIG less than 150 mg/dL NormalTRIG 150-199 mg/dL Borderline highTRIG 200-500 mg/dL High TRIG greater than 500 mg/dL Very highStandard traceable to the Center for Disease Conrtrol and Prevention (CDC) test method.Urea nitrogen [Mass/volume] in Serum or PlasmaOrdered By: Surinder Del Castillo on 57-09-1407Rdup nitrogen [Mass/Vol]13 mg/dL7-25[facility] HospitalWBC Auto (Bld) [#/Vol]Ordered By: Surinder Del Castillo on 68-29-8127PFG (Bld) [#/Vol]7.2 10*3/uL3.8-11.6FPomerene HospitalUrinalysis - AUTOMATEDon 10-64-9673Vuvngvicua (U)cloudyNorth Secure-24 Other Bilirubin Ql (U)small280 [place] [employer]-24 Other Color (U)orange-brownCarbon Salon Other Glucose Ql (U)Negative280 [place] [employer]-24 Other Hemoglobin Ql (U)large280 [place] [facility]-[place] Other Ketones Ql (U)Negative280 [place] [employer]-[facility] Other Leukocyte esterase Test strip Ql (U)Negative280 [place] [employer]-24 Other Nitrite Ql (U)PositiveCarbon Salon Other pH (U)5.0 [pH][place] [employer]-24 Other Protein Ql (U)100Nosaint joseph hospital west Secure-24 Other Specific gravity (U) [Rel density]1.030[place] [employer]-24 Other Urobilinogen (U) [Mass/Vol]1.0 mg/dLNort Secure-24 Other Urinalysis - AUTOMATEDNosaint joseph hospital west Secure-24 Other Urine Cultureon 01-41-6651Finkyiui identified Cx Nom (U)[place] [employer]-24 Other [id number]-RvL-2 (COVID-19) RNA CHARLENE+probe Ql (Resp)on 16-50-1826GJCZ-CoV-2 (COVID-19) RNA CHARLENE+probe Ql (Unsp spec)Negative280 [place] [employer]-24 Other [id number]-SjY-2 (COVID-19) RNA CHARLENE+probe Ql (Resp)on 37-21-8739FTKM-CoV-2 (COVID-19) RNA CHARLENE+probe Ql (Unsp spec)Negative280 [place] [employer]-24 Other PAP ACOG PANEL 2: 30 to 65on 02-05-2022..NormalThe Lima City HospitalComment on above:Result Comment: Performed at: WBPerformed By: #### [id number] #### [facility] [address] [place] [address] Dr. Josue Ray Gdln ACOG Nojfdyp68-99PthfneHihProMedica Memorial HospitalComment on above:Performed By: #### [id number] #### [facility] [address] [place] [address] Dr. Josue PandaDIAGNOSIS:CommentParkwood HospitalComformerly [facility] on above: Result Comment: NEGATIVE FOR INTRAEPITHELIAL LESION OR MALIGNANCY. Performed at: WBPerformed By: #### [id number] #### [facility] [address] [place] [address] Dr. Josue PandaHPV AptimaNegativeNormalNegativeMercy Health St. Charles HospitalComformerly [facility] on above:Result Comment: This nucleic acid amplification test detects fourteen high-risk HPV types (16,18,31,33,35,39,45,51,52,56,58,59,66,68) without differentiation. Performed at: =GPerformed By: #### [id number] #### [facility] [address] [place] [address] Dr. Josue PandaMethodology:CommentWayne HealthCare Main Campus on above: Result Comment: This liquid based ThinPrep(R) pap test was screened with the use of an image guided system. Performed at: WBPerformed By: #### [id number] #### [facility] [address] [place] [address] Dr. Josue PandaNote:CommentWayne HealthCare Main Campus on above:Result Comment: The Pap smear is a screening test designed to aid in the detection of premalignant and malignant conditions of the uterine cervix. It is not a diagnostic procedure and should not be used as the sole means of detecting cervical cancer. Both false-positive and false-negative reports do occur. . Performed at: WBPerformed By: #### [id number] #### [facility] [address] [place] [address] Dr. Josue PandaPerformed by:CommentNoChillicothe Hospital on above: Result Comment: Subhash Valentino Laser Beam Trim Operator (ASCP) Performed at: WBPerformed By: #### [id number] #### [facility] [address] [place] [address] Dr. Josue Ray adequacy:CommentWayne HealthCare Main Campus on above:Result Comment: Satisfactory for evaluation. No endocervical cells are present. This is consistent with a history of hysterectomy. Performed at: WBPerformed By: #### [id number] #### [facility] [address] [place] [address] Dr. Josue PandaBasophils Auto (Bld) [#/Vol]Ordered By: Surinder Del Castillo on 01-14-2022 Basophils (Bld) [#/Vol]0.1 10*3/uL0.0-0.2FPomerene Hospital Basophils/100 WBC Auto (Bld)Ordered By: Surinder Del Castillo on 53-97-6018Lpjfwgeac/100 WBC (Bld)1.2 %.[facility] HospitalBlood hemoglobin measurement (mass/volume)Ordered By: Surinder Del Castillo on 78-19-5646Kvngkqzlwk (Bld) [Mass/Vol]14.0 g/dL11.8-15.4FPomerene HospitalBlood leukocytes automated count (number/volume)Ordered By: Surinder Del Castillo on 29-41-8031LWG (Bld) [#/Vol]5.6 10*3/uL 4.5-11.0[facility] HospitalBody fluid albumin measurement (mass/volume)Ordered By: Surinder Del Castillo on 65-42-6056Ljzagyb (Body fld) [Mass/Vol] 4.1 g/dL3.2-5.5FPomerene HospitalCholesterol [Mass/volume] in Serum or PlasmaOrdered By: Surinder Del Castillo on 83-51-6172Vlwayhefesg [Mass/Vol]149 mg/xF803-691NpqkitdxfAultman Alliance Community HospitalComment on above:Chol less than 200 mg/dl low risk Chol 201-239 mg/dl borderline risk Chol 240 mg/dl and greater high riskCholesterol in LDL Calc [Mass/Vol]Ordered By: Surinder Del Castillo on 29-01-3998Ueshkmycone in LDL [Mass/Vol]75 mg/dL0-100A[facility] HospitalComment on above:LDL ATP III CLASSIFICATION LDL less than 100 mg/dL Optimal LDL 100-129 mg/dL Near or above optimal LDL 130-159 mg/dL Borderline high LDL 160-189 mg/dL High LDL greater than 189 mg/dL Very highCholesterol in VLDL Calc [Mass/Vol]Ordered By: Surinder Del Castillo on 51-05-6861Fdgvirjyvdh in VLDL [Mass/Vol]33 mg/dLAultman Alliance Community HospitalCreatinine and Glomerular filtration rate.predicted panel (S/P/Bld)Ordered By: Surinder Del Castillo on 96-81-8938Tcsmlyimec [Mass/Vol]0.84 mg/dL 0.44-1.03[facility] HospitalEosinophils Auto (Bld) [#/Vol]Ordered By: Surinder Del Castillo on 06-67-6122Iywrbqoojab (Bld) [#/Vol]0.1 10*3/uL0.0-0.45 [facility] HospitalEosinophils/100 WBC Auto (Bld)Ordered By: Surinder Del Castillo on 94-82-8245Ochnwqhhgvw/100 WBC (Bld)2.6 %.[facility] HospitalErythrocyte distribution width Auto (RBC) [Ratio]Ordered By: Surinder Del Castillo on 09-76-3454Ftpbuceqqol distribution width (RBC) [Ratio]12.7 %11.9-15.3FPomerene HospitalEstimated glomerular filtration rate (GFR) non- AmericanOrdered By: Surinder Del Castillo on 81-99-4867POX/1.73 sq M.predicted among non- blacks MDRD (S/P/Bld) [Vol rate/Area]> 60 mL/MinAultman Alliance Community HospitalGlobulin Calc (S) [Mass/Vol]Ordered By: Surinder Del Castillo on 96-11-4612Vugynamj (S) [Mass/Vol]2.8 g/dLAultman Alliance Community HospitalHematocrit Auto (Bld) [Volume fraction]Ordered By: Surinder Del Castillo on 92-53-1254Lhwwxfpxsv (Bld) [Volume fraction]41.5 %34.0-46.4FPomerene HospitalLaboratory - Chemistry and Chemistry - challengeOrdered By: Surinder Del Castillo on 48-54-8707Zvexdiz [Mass/Vol] 88 mg/iK44-485CrloglulzAultman Alliance Community HospitalLaboratory - Hematology and Cell countsOrdered By: Surinder Del Castillo on 63-48-1437Ogdokpxxs RBC/100 WBC (Bld) [Ratio]0.2 %0-0.5FPomerene HospitalLymphocytes Auto (Bld) [#/Vol]Ordered By: Surinder Del Castillo on 72-55-7334Tyqijatpogj (Bld) [#/Vol]1.9 10*3/uL1.00-4.8 [facility] HospitalLymphocytes/100 WBC Auto (Bld)Ordered By: Surinder Del Castillo on 66-51-3374Rqvqhnadllq/100 WBC (Bld)33.5 %.[facility] Auto (RBC) [Entitic mass]Ordered By: Surinder Del Castillo on 56-40-5949QPI (RBC) [Entitic mass]30.4 pg24.7-34.3FPomerene HospitalMCHC Auto (RBC) [Mass/Vol]Ordered By: Surinder Del Castillo on 60-06-2069LAJG (RBC) [Mass/Vol]33.6 g/dL 32.0-35.0[facility] HospitalMCV Auto (RBC) [Entitic vol]Ordered By: Surinder Del Castillo on 24-17-6809SRM (RBC) [Entitic vol]90.5 dH44-496AtxsqmhguAultman Alliance Community HospitalMonocyte %Ordered By: Surinder Del Castillo on 57-10-9025Qqykirzp % 169 mg/aK56-297EopkzzgvqAultman Alliance Community HospitalComment on above:TRIG ATP III CLASSIFICATION TRIG less than 150 mg/dL Normal TRIG 150-199 mg/dL Borderline high TRIG 200-500 mg/dL High TRIG greater than 500 mg/dL Very high Standard traceable to the Center for Disease Conrtrol and Prevention (CDC) test method.Monocytes Auto (Bld) [#/Vol]Ordered By: Surinder Del Castillo on 75-81-7672Xilzmplxu (Bld) [#/Vol]0.6 10*3/uL0.0-0.8[facility] HospitalMonocytes/100 WBC Auto (Bld)Ordered By: Surinder Del Castillo on 74-20-3505Mwsglhwni/100 WBC (Bld)11.4 %. [facility] HospitalNeutrophils Auto (Bld) [#/Vol]Ordered By: Surinder Del Castillo on 52-22-0155Zvwsjbcacto (Bld) [#/Vol]2.9 10*3/uL1.8-7.7FPomerene HospitalNeutrophils/100 WBC Auto (Bld)Ordered By: Surinder Del Castillo on 91-48-2736Zkcuxugegii/100 WBC (Bld)51.3 %.[facility] HospitalNo Panel InformationOrdered By: Surinder Del Castillo on 75-77-1140Imfuqsdit GFR ()> 60 mL/MinAultman Alliance Community HospitalComment on above:GFR estimated reference range: According to KDOQI guidelines, <60 ml/min/1.73m2 is sufficient todiagnose a patient with chronic kidney disease.Nicotine Metabolite NegativeCutoff=25A[facility] Community HospitalComment on above:Performed at: - Lab[address] [id number] Newspaper Delivery Driver: Jesi Lombardo MD, Phone: [phone] Creatinine Clearance (ChemN/AFPomerene HospitalPlatelet mean volume Auto (Bld) [Entitic vol]Ordered By: Surinder Del Castillo on 53-60-6705Amsyntur mean volume (Bld) [Entitic vol]7.4 fL6.3-10.7FPomerene HospitalPlatelets Auto (Bld) [#/Vol]Ordered By: Surinder Del Castillo on 74-97-1488Jfxbovcdx (Bld) [#/Vol]442 10*3/uL 150-450[facility] HospitalProtein [Mass/volume] in Serum or Plasma Ordered By: Surinder Del Castillo on 70-01-4709Rqggtcg [Mass/Vol]6.9 g/dL6.1-7.9[facility] HospitalRBC Auto (Bld) [#/Vol]Ordered By: Surinder Del Castillo on 41-93-1283OTJ (Bld) [#/Vol]4.59 10*6/uL3.60-5.00The Christ Hospitalerum or plasma alanine aminotransferase measurement without P-5'-P (enzymatic activiOrdered By: Surinder Del Castillo on 61-18-0214FHB No additional P-5'-P [Catalytic activity/Vol]60 U/A19-47KguwizvhwThe Christ Hospitalerum or plasma albumin/globulin mass ratioOrdered By: Surinder Del Castillo on 01-14-2022 Albumin/Globulin [Mass ratio]1.5 {ratio}The Christ Hospitalerum or plasma alkaline phosphatase measurement (enzymatic activity/volume)Ordered By: Surinder Del Castillo on 37-87-0854IZH [Catalytic activity/Vol]64 U/D01-38BesswdqmwThe Christ Hospitalerum or plasma aspartate aminotransferase measurement (enzymatic activity/volume)Ordered By: Surinder Del Castillo on 10-14-8548LOF [Catalytic activity/Vol]51 U/R26-41UrgnqupreThe Christ Hospitalerum or plasma calcium measurement (mass/volume)Ordered By: Surinder Del Castillo on 48-14-1213Jveduol [Mass/Vol] 10.7 mg/dL8.2-10.2FSt. Charles Hospitalerum or plasma chloride measurement (moles/volume)Ordered By: Surinder Del Castillo on 34-30-4541Qeqgupao [Moles/Vol]98 mmol/L26-683BimpnfpowThe Christ Hospitalerum or plasma high density lipoprotein (HDL) cholesterol measurementOrdered By: Surinder Del Castillo on 00-02-9681Xswcxasjhjp in HDL [Mass/Vol]40 mg/hT31-62LgqxslbfuAultman Alliance Community HospitalComment on above:HDL CHOL ATP-III CLASSIFICATION Cardiovascular Risk HDL > or equal to 60 mg/dL LOW HDL < 40 mg/dL HIGHSerum or plasma potassium measurement (moles/volume)Ordered By: Surinder Del Castillo on 68-65-7817Obkshnlrw [Moles/Vol]3.7 mmol/L3.5-5.1FSt. Charles Hospitalerum or plasma sodium measurement (moles/volume)Ordered By: Surinder Del Castillo on 91-72-3781Qzfzid [Moles/Vol]136 mmol/R606-742YqaqfjzqsThe Christ Hospitalerum or plasma total bilirubin measurement (mass/volume) Ordered By: Surinder Del Castillo on 47-26-4566Ogehjmltk [Mass/Vol]0.7 mg/dL0.3-1.2 [facility] Hospitalerum or plasma total carbon dioxide measurement (moles/volume)Ordered By: Surinder Del Castillo on 53-77-4121SQ2 [Moles/Vol] 27.9 mmol/L22.0-30.0The Christ Hospitalerum or plasma total cholesterol/high density lipoprotein (HDL) cholesterol mass ratOrdered By: Surinder Del Castillo on 73-44-1712Nusdkrpwwky.total/Cholesterol in HDL [Mass ratio]3.7 {ratio} <5.0The Christ Hospitalerum or plasma urea nitrogen measurement (mass/volume)Ordered By: Surinder Del Castillo on 01-57-1435Vltn nitrogen [Mass/Vol]7 mg/dL 9-23[facility] HospitalTS DL <= 0.005 mIU/L QnOrdered By: Surinder Del Castillo on 83-85-8909UQR Qn2.11 m[IU]/L0.45-5.33[facility] COVID Quick Testingon 23-76-1027UbqkuuZcybmufnHzjql [employer] Other 533-5120NLAD-GdL-2 (COVID-19) RNA CHARLENE+probe Ql (Resp)on 30-96-8279OOIF-CoV-2 (COVID-19) RNA CHARLENE+probe Ql (Unsp spec)PositiveNort [employer] Other COVID Quick Testingon 79-10-9153LcseywTnphzcmeNujgc [employer] Other Urine Cultureon 44-99-9356Jbntw Culture>100,000North [employer] Other Urine Culture<16North [employer] Other Urine Culture<8[facility] [employer] Other Urine Culture<4[facility] [employer] Other Urine Culture<2[facility] [employer] Other Urine Culture<1[facility] [employer] Other Urine Culture<0.5[facility] [employer] Other Urine Culture<32[facility] Other Urine Culture<2/38[facility] [employer] Other Vital Signs Date TimeVital SignValuePerforming TkziuofkqBpusujse49-67-3196 15:01-0400Body .4 cmStacianaid CrowPowin Energy Corporation CLIENT DEVELOPMENT DIRECTOR-PROJECT DEVELOPMENT DIRECTOR Work Phone: [facility]10-01-2025 15:01-0400Body mass index (BMI) [Ratio]37.97 kg/t9Hceoegree Steen CLIENT DEVELOPMENT DIRECTOR-PROJECT DEVELOPMENT DIRECTOR Work Phone: [facility]10-01-2025 15:01-0400Body yojlht854.1 kgStacianaid Steen CLIENT DEVELOPMENT DIRECTOR-PROJECT DEVELOPMENT DIRECTOR Work Phone: [facility]10-01-2025 15:01-0400Diastolic blood mxrjcxuj62 mm[Hg]Donna Steen CLIENT DEVELOPMENT DIRECTOR-PROJECT DEVELOPMENT DIRECTOR Work Phone: [facility]10-01-2025 15:01-0400Heart rate 59 /minStaconnie Steen CLIENT DEVELOPMENT DIRECTOR-PROJECT DEVELOPMENT DIRECTOR Work Phone: [facility]10-01-2025 15:01-3854UqQ4% (BldA) [Mass fraction]95 %Donna Steen CLIENT DEVELOPMENT DIRECTOR-PROJECT DEVELOPMENT DIRECTOR Work Phone: [facility]10-01-2025 15:01-0400Systolic blood wqnoforz999 mm[Hg]Donna Steen CLIENT DEVELOPMENT DIRECTOR-PROJECT DEVELOPMENT DIRECTOR Work Phone: [facility]09-24-2025 11:18-0400Body .4 Thais Raoabo [employer] Work Phone: [phone] [place], [place] [address]-24-2025 11:18-0400Body mass index (BMI) [Ratio]38.68 kg/m2Emma Gail [employer] Work Phone: [phone] [place] [address]-24-2025 11:18-0400Body temperature 97.7 [degF]Ai Raoabo [employer] Work Phone: [phone] [place] [address]-24-2025 11:18-0400Body bvjcox438.05 kgEmrobby Gail [employer] Work Phone: [phone] [place] [address]-24-2025 11:18-0400Diastolic blood yhqtaikp87 mm[Hg]Ai Gail [employer] Work Phone: [phone])[address] [place] [address]-24-2025 11:18-0400Heart rate63 /min Ai Gail [employer] Work Phone: [phone] [address]-24-2025 11:18-4948ScL6% (BldA) [Mass fraction]99 %Ai Gail [employer] Work Phone: [phone])[address] [place] [address]-24-2025 11:18-0400Systolic blood iawkxspx981 mm[Hg]Ai Reynolds [employer] Work Phone: [facility] CenterDywzffdnzp12-67-9341 14:14-0400Body uiisup671.4 cmStesudheer Guidry DPM Work Phone: [facility] CenterPintnqlmpr78-76-8918 14:14-0400Body mass index (BMI) [Ratio]36.87 kg/y1Ebneoh Lindyher DPM Work Phone: [facility] CenterFchuaqxbxe19-33-9253 14:14-0400Body lvmrow746.06 kgSteven Lindyher DPM Work Phone: [address] [place], [place] [address]Xyronsaojs68-45-0918 09:44-0400Diastolic blood rypwoydb30 mm[Hg]KATALINA WEIR [facility]05-12-2025 09:44-0400Mean blood mm[Hg]KATALINASYDNI WEIR [facility]05-12-2025 09:44-0400Systolic blood dwgocoaq787 mm[Hg]KATALINA WEIR [facility]05-12-2025 09:27-0400Body syicrrxiast54.52 [degF]KATALINA WEIR [facility]05-12-2025 09:27-0400Diastolic blood ifnctvfq721 mm[Hg]KATALINA ADAMA [facility]05-12-2025 09:27-0400Heart rate78 /minJENNIFER ADAMA [facility]05-12-2025 09:27-0400Respiratory rate16 /minJENNIFER ADAMA [facility]05-12-2025 09:27-0400Systolic blood ygxswwql854 mm[Hg]KATALINA WEIR [facility]04-03-2025 09:24-0400Body mass index (BMI) [Ratio]33 kg/v6Jbvhz Alyssa DO Work Phone: [facility] CenterIbhzqpgjlq92-69-3089 09:24-0400Body .33 kgCorey Alyssa DO Work Phone: [facility] CenterVlsecknotz84-66-4760 09:24-0400Diastolic blood xypzqfhj84 mm[Hg]Rj Alyssa DO Work Phone: [facility] CenterMyqkdduzha97-55-3240 09:24-0400Systolic blood coycajbv703 mm[Hg]Rj Alyssa DO Work Phone: [facility] CenterFbvnacrgky42-76-5452 09:14-0500Body ueauuq398.8 Mukul Colmenares MD Work Phone: [facility] CenterSrlakxozmm79-49-8390 09:14-0500Body mass index (BMI) [Ratio]31.57 kg/j4UduhmAgapito Colmenares MD Work Phone: [facility] CenterTxqezhdina18-01-5686 09:14-0500Body temperature 97.11 [degF]Agapito Colmenares MD Work Phone: [phone] CenterOxbookibjq55-12-9766 09:14-0500Body jgqryo22.79 kgAgapito Colmenares MD Work Phone: [facility] CenterSxmughduwk91-63-9330 09:14-0500Diastolic blood mm[Hg]Agapito Colmenares MD Work Phone: [facility] CenterUwuljrwyhp10-95-7312 09:14-0500Heart rate69 /min Agapito Colmenares MD Work Phone: [facility] CenterAxwewehnjj80-49-5015 09:14-0500Respiratory rate18 /minAaron Meinke MD Work Phone: [phone] [place], [place] [address]01-20-2025 09:14-9227XzH3% (BldA) [Mass fraction]98 %Agapito Colmenares MD Work Phone: [phone] [place], [place] [address]01-20-2025 09:14-0500Systolic blood zuymrasr128 mm[Hg]Agapito Colmenares MD Work Phone: [phone] [place], [place] 7[address]0312-13-2024 08:45-0500Body tyayoo002.8 Mukul Colmenares MD Work Phone: [phone] [place], [place] [address]12-13-2024 08:45-0500Body mass index (BMI) [Ratio]31.57 kg/y5QzoaeAgapito Colmenares MD Work Phone: [phone] [place], [place] 7[address]12-13-2024 08:45-0500Body temperature 97.11 [degF]Agapito Colmenares MD Work Phone: [phone] [place], [place] 7[address]12-13-2024 08:45-0500Body ybqevj71.79 kgAgapito Colmenares MD Work Phone: [phone] [place], [place] [address]12-13-2024 08:45-0500Diastolic blood fwcyiacc74 mm[Hg]Agapito Colmenares MD Work Phone: [phone] [place], [place] [address]12-13-2024 08:45-0500Heart rate74 /min Agapito Colmenares MD Work Phone: [phone] [place], [place] 7[address]12-13-2024 08:45-0500Respiratory rate18 /minAgapito Colmenares MD Work Phone: [phone] [place], [place] 7[address]12-13-2024 08:45-2953TkZ5% (BldA) [Mass fraction]98 %Agapito Colmenares MD Work Phone: [phone] [place], [place] [address]12-13-2024 08:45-0500Systolic blood vcazglnc985 mm[Hg]Agapito Colmenares MD Work Phone: [phone] [place], [place] 7160305-15-2024 14:45-0400Diastolic blood tftmejou69 mm[Hg]Natasha Johnson MD Work Phone: [facility]05-15-2024 14:45-0400Heart rate52 /minNatasha Johnson MD Work Phone: [facility]05-15-2024 14:45-0400 Respiratory rate16 /minNatasha Johnson MD Work Phone: [facility]05-15-2024 14:45-1999CpE4% (BldA) [Mass fraction]100 %Natasha Johnson MD Work Phone: [facility]05-15-2024 14:45-0400Systolic blood mm[Hg]Natasha Johnson MD Work Phone: [facility]05-15-2024 14:09-0400Body cezelrtwret89.91 [degF]Natasha Johnson MD Work Phone: [facility]05-15-2024 12:00-0400Body smomkh324.4 cmVriki Johnson MD Work Phone: [facility]05-15-2024 12:00-0400Body mass index (BMI) [Ratio]33.27 kg/q8WxmjtdNatasha Johnson MD Work Phone: [facility]05-15-2024 12:00-0400Body .08 kgNatasha Johnson MD Work Phone: [facility]01-26-2024 19:27-0500Body xsuepl392.[address]01-26-2024 19:27-0500Body mass index (BMI) [Ratio]36.71 kg/m2Pmh [address] [place], [place] 334[address]01-26-2024 19:27-0500Body yfgvvd435.[address] [place], [place] 334[address]01-21-2023 10:15-0500Body height 170.18 Anthony Antony Other [employer] Other 01-21-2023 10:15-0500Body mass index (BMI) [Ratio] 35.08 kg/a4HyhfjgElisa Antony Other [employer] Other 01-21-2023 10:15-0500Body dgaslomukmw06 [degF]Elisa Cassia Other [employer] Other 01-21-2023 10:15-0500Body qthgzi242.61 kgPaevan Antony Other [employer] Other 01-21-2023 10:15-0500Diastolic blood wxfiqsmn33 mm[Hg] Elisa Cassia Other [employer] Other 01-21-2023 10:15-0500Respiratory rate18 /minElisa Antony Other [employer] Other 01-21-2023 10:15-8927LqS1% (BldA) [Mass fraction]98 % Elisa Cassia Other [employer] Other 01-21-2023 10:15-0500Systolic blood hqpmhapv865 mm[Hg] Elisa Cassia Other [employer] Other 01-05-2023 06:42-0500Body eqrwjy375.37 cmMD Agapito Colmenares Work Phone: [facility]01-05-2023 06:42-0500 Body pygmas557.32 kgMD Agapito Colmenares Work Phone: [facility]12-13-2022 15:30-0500 Diastolic blood ygfiroib15 mm[Hg]MD Agapito Colmenares Work Phone: [phone]12-13-2022 15:30-0500 Heart rate63 /min Agapito Colmenares Work Phone: [phone] [place], [place] 9[address]12-13-2022 15:30-0500 Respiratory rate16 /minMD Agapito Colmenares Work Phone: [phone]12-13-2022 15:30-0500 SaO2% (BldA) [Mass fraction]99 %MD Agapito Colmenares Work Phone: [phone] [place], [place] 9605112-13-2022 15:30-0500 Systolic blood mm[Hg]MD Agapito Colmenares Work Phone: [phone] [place], [place] 9605112-13-2022 13:19-0500 Body .37 cm Agapito Colmenares Work Phone: [phone] [place], [place] 960[address]12-13-2022 13:19-0500 Body yoeppignmeq36.6 [degF]MD Agapito Colmenares Work Phone: [phone] [place], [place] 9605112-13-2022 13:19-0500 Body pjfkza582.32 kgMD Agapito Colmenares Work Phone: [phone] [place], [place] 9605111-23-2021 10:45-0500 Body ujejqb995.18 cmPamellenka Cassia Other [place] [employer] Other 11-23-2021 10:45-0500Body mass index (BMI) [Ratio] 33.67 kg/v8TqxfdpElisa Antony Other [facility] Other 11-23-2021 10:45-0500Body iflejr83.52 kgElisa Antony Other [place] [employer] Other 11-23-2021 10:45-9748KmT8% (BldA) [Mass fraction]97 % Elisa Antony Other [employer] Other 10-12-2021 17:50-0400Body arjbvu378.18 cmPisabel Antony Other [employer] Other 10-12-2021 17:50-0400Body mass index (BMI) [Ratio] 33.67 kg/x5Gqbglx Cassia Other [employer] Other 10-12-2021 17:50-0400Body oppscoozyoi14.9 [degF]Elisa Antony Other [employer] Other 10-12-2021 17:50-0400Body mdsidl68.52 kgPaevan Antony Other [employer] Other 10-12-2021 17:50-0400Diastolic blood zbaaaoya97 mm[Hg] Elisa Antony Other [employer] Other 10-12-2021 17:50-0400Respiratory rate18 /minElisa Antony Other [employer] Other 10-12-2021 17:50-7853AnC7% (BldA) [Mass fraction]100 % Elisa Antony Other [employer] Other 10-12-2021 17:50-0400Systolic blood monfrupg555 mm[Hg] Elisa Marksmond Other [employer] Other 09-22-2021 10:45-0400Body .18 cmPisabel Antony Other [employer] Other 09-22-2021 10:45-0400Body mass index (BMI) [Ratio] 33.67 kg/x6JxowtvElisa Antony Other [employer] Other 09-22-2021 10:45-0400Body siyxcidffky41.5 [degF]Elisa Antony Other [employer] Other 09-22-2021 10:45-0400Body emoqqi29.52 kgElisa Antony Other [employer] Other 09-22-2021 10:45-0400Respiratory rate18 /minElisa Antony Other [employer] Other 09-22-2021 10:45-0410ItP3% (BldA) [Mass fraction]97 % Elisa Antony Other [employer] Other Encounters Encounter DateEncounter TypeCare ProviderFacilityStart: 95-76-1265brjnneksji Maria Esther Salguero WATERSFacility:ANH BellevueStart: 02-25-2025 End: 36-93-9686Rpdpudvub encounterSkory Branham RMAProMedkathya Physicians Pulmonary/Sleep MedicineStart: 02-23-2025 End: 22-60-1615Jltiwi outpatient visit 25 minutesStree Steen CLIENT DEVELOPMENT DIRECTOR-PROJECT DEVELOPMENT DIRECTOR Work Phone: [facility]monary/Sleep MedicineComment on above:CRIS (obstructive sleep apnea) (Primary Dx); CPAP use counseling; Obesity (BMI 30-39.9); BMI 37.0-37.9, adultStart: 02-23-2025 End: 33-23-3592iezvxvjwhtQGCJRY L KREGELFostoria City Hospital Ambulatory PPGStart: 02-16-2025 End: 02-89-7252Xawpsotgs encounterAgapito Colmenares MD Work Phone: [facility] MedicineStart: 02-16-2025 End: 85-01-2881Yozaio outpatient visit 25 minutesLanierobby Gail CUELLAR Work Phone: noms [facility] MedicineComment on above:Primary hypertension (Primary Dx)Start: 02-16-2025 End: 90-24-2266nrxdmukqhpRPGK SZABONot AvailableStart: 11-23-2024 End: 05-42-7622Dprvhs outpatient visit 15 minutesSteven A Rusher DPM Work Phone: noms PODIATRYComment on above:Plantar fasciitis, left (Primary Dx); Inflammatory heel pain, left; Difficulty walking; Calcaneal spur, leftStart: 11-23-2024 End: 24-14-9587nxudkltszxLEVEJM A RUSHERNot AvailableStart: 11-23-2024 End: 59-95-2813Vtloux flowsheetSteven A Rusher DPM Work Phone: noMS PODIATRYStart: 11-23-2024 End: 52-88-0801Azbupm flowsheetSteven A Rusher DPM Work Phone: N[facility] PODIATRYStart: 11-22-2024 End: 71-97-1681Ijmeqeonj encounterSteven A Rusher DPM Work Phone: noms PODIATRYComment on above:Advice Only (Rx Request)Start: 10-29-2024 End: 14-53-9719xrjwgdghqgLJAYFPX R WATERSNot AvailableStart: 10-19-2024 End: 79-90-7059nriakhxwklVsqohqg R WATERSFacility:EU [place]uskyStart: 10-19-2024 End: 28-38-1268Hiblyjq encounter procedureMaria Esther JUARES [facility] Bernadine Start: 10-15-2024 End: 37-05-3178dtehjqdkxuJREUT FAZIONot AvailableStart: 10-12-2024 End: 27-13-5442zlqjmfsglsXGPQUZJR PERRYNot AvailableStart: 10-04-2024 End: 48-50-3753qlkgnvwjdvZZXMQSPJ E PERRYFacility:FTMCStart: 10-04-2024 End: 88-16-7086Usl Drop offJENNIFER E ADAMA [facility] Start: 10-04-2024 End: 83-62-6466Tppcwpa encounter procedureJENNIFER E ADAMA [facility] start: 10-04-2024 End: 61-90-6797fcuxibqtpqKOVENRGW E PERRYFacility:EU BellevueStart: 09-28-2024 ambulatoryPatrick WATERSFacility:EU [place]kyStart: 08-26-2024 End: 98-75-8077Hyneso flowsheetCorey Alyssa DO Work Phone: noms BCP OBStart: 08-26-2024 End: 10-21-3161Hdgead flowsheetCorey Alyssa DO Work Phone: noms BCP OBStart: 08-26-2024 End: 28-60-6730Vhdedcgcn Result EncounterGeneric External Data ProviderNOMS External Department UnsolicitedStart: 08-26-2024 End: 06-17-6842Kgsrffe encounter procedureCorey Alyssa DO Work Phone: noms HealthcareStart: 08-26-2024 End: 09-38-7590Xgnspbzw preventive med est patient 40-64yrsCorey Alyssa DO Work Phone: noms BCP OBComment on above:Well woman exam with routine gynecological exam; Encounter for screening mammogram for malignant neoplasm of breast; H/O: hysterectomy; Other microscopic hematuriaStart: 08-26-2024 End: 36-63-6226fewemohtqxTICGN FAZIONot AvailableStart: 10-16-4138nujjwliciu AGAPITO Scottie COLMENARESProMedica [place] campustart: 06-14-2024 End: 74-95-3010Iksapjmartir Colmenares MD Work Phone: [facility]SRW FMStart: 06-14-2024 End: 27-34-6367Lgpsscmartir Colmenares MD Work Phone: noMS GSRW FMStart: 06-14-2024 End: 10-40-1820atpasdrybpVQBTEGabriella Charles AvailableStart: 06-14-2024 End: 46-61-5497Zujqrl outpatient visit 15 minutesAgapito Colmenares MD Work Phone: [facility] GSRW FMComment on above:Gastroenteritis (Primary Dx); Gastroesophageal reflux disease without esophagitis; Primary hypertension (CMS/HCC); Chronic diarrhea; Class 1 obesity due to excess calories with serious comorbidity and body mass index (BMI) of 31.0 to 31.9 in adultStart: 41-01-6975lsdglkbeviPNHUG M MEINKE [facility] [place] campustart: 05-07-2024 End: 32-02-0036Uzwmqgmartir Colmenares MD Work Phone: [facility]SRW FMStart: 05-07-2024 End: 94-27-5008Xgknoqmartir Colmenares MD Work Phone: [facility] GSR FMStart: 05-07-2024 End: 10-55-4434phmaqdoktbNPKLPGabriella Charles AvailableStart: 05-07-2024 End: 11-12-9556Axbqkl outpatient visit 25 minutesAgapito Colmenares MD Work Phone: [facility] GSR FMComment on above:Arthralgia, unspecified joint (Primary Dx); Night sweats; Rotator cuff arthropathy of both shoulders; Chronic neck pain; Bilateral hip pain; Sacroiliitis (CMS/HCC); Lumbosacral strain, initial encounter; Class 1 obesity due to excess calories with serious comorbidity and body mass index (BMI) of 31.0 to 31.9 in adult; Primary hypertension (CMS/HCC); Gastroesophageal reflux disease, unspecified whether esophagitis present; Hypercholesteremia (CMS/HCC); Chronic bilateral low back pain without sciaticaStart: 05-07-2024 End: 28-01-3805jtpkwvoyuoUOKCN M MEINKENot AvailableStart: 10-22-2023 End: 74-46-8004Bnqgfalqz encounterSkory Valdez Pulmonary/Sleep MedicineStart: 10-08-2023 End: 26-80-0108ywgyatafxsSRJHIH N CHIDIMercy Tiffin HospitalStart: 10-08-2023 End: 39-43-2461Sgrpvqqsji hospital visit by physicianNatasha Johnson MD Work Phone: mthz ORComment on above:Screening for colon cancer; Dysphagia, unspecified typeStart: 09-30-2023 End: 68-12-7960tbcveiqydoGRHABRaji Jacinto HospitalStart: 09-19-2023 End: 53-65-7958pvmpntvuyrGWHNXC L KREGELVermont Psychiatric Care HospitalSeanca Pryor HospitalStart: 09-19-2023 End: 64-95-3682Xmnsxt outpatient new 45 minutesStacianaid Steen CLIENT DEVELOPMENT DIRECTOR-PROJECT DEVELOPMENT DIRECTOR Work Phone: [facility] Pulmonary/Sleep MedicineComment on above:CRIS (obstructive sleep apnea) (Primary Dx); Sleep apnea, unspecified type; CPAP use counseling; Class 2 obesity with body mass index (BMI) of 36.0 to 36.9 in adult, unspecified obesity type, unspecified whether serious comorbidity presentStart: 08-11-2023 Telephone encounterTerri Valdez Pulmonary/Sleep MedicineStart: 08-01-2023 End: 51-65-4066unykrugvxoYizvu FazioFacility:[facility] Start: 07-25-2023 End: 14-54-0808Uhatgazei Result EncounterCorey Alyssa DO Work Phone: NOBU External Department UnsolicitedStart: 07-25-2023 End: 27-34-5906Bbscomosi Result EncounterCorey Alyssa DO Work Phone: noms External Department UnsolicitedStart: 07-16-2023 Telephone encounterRachel Kingsley CNA Work Phone: [facility] Pulmonary/Sleep MedicineStart: 06-26-2023 End: 55-90-9810Zbonrf outpatient visit 15 minutesCorey Alyssa DO Work Phone: NOJR BCP OBComment on above:Cyst of ovary, unspecified laterality; Pelvic pain in femaleStart: 06-20-2023 End: 53-50-6509Teysswhl SupportSum[facility] [address] [place] [address] - Sleep DisordersComment on above:Sleep apnea, unspecified typeStart: 06-13-2023 End: 55-19-9414vpahetloshBFDQI [facility] Hospitaltart: 06-13-2023 End: 67-40-0866Oerhksedvg hospital visit by Phil Colmenares MD Work Phone: MWHZ LaboratoryComment on above:Chronic GERDStart: 56-79-4850Eqtqobtcq encounterAgapito Colmenares MD Work Phone: [facility] Division of [facility] - Sleep DisordersComment on above:Sleep Lab (HST)Start: 03-28-2023 End: 58-11-1219cyvgjixrlcPhjyivd Ditty Other [place] [employer] Other Start: 46-60-0133Qfvjbykwa encounterCamradha TayloryFPG GastroenterologyStart: 01-06-2023 End: 69-34-9059dmwnfzkoprAcycc M MeinkeFacility:[facility] Hospitaltart: 01-06-2023 End: 40-81-4396rilmpetkxpDX Agapito Colmenares Work Phone: [facility] Work Phone: Start: 01-06-2023 End: 55-83-3905Suzzzqrkvi RecurringMD Agapito Mannryawais Work Phone: [facility]-Physical Therapy [place] Work Phone: start: 12-24-2022 End: 86-68-8243vbpduejculEgyey M DarrianFacility:[facility] Hospitaltart: 12-24-2022 End: 66-30-0343pgjjswqxgmIO Aaron M Darrian Work Phone: [facility] Work Phone: Start: 12-24-2022 End: 91-60-1847Dkkiqxog ReferredMD Agapito Mannsatish Work Phone: [facility]-Employee Benefit ScreeningStart: 06-21-2022 End: 58-89-2189xnzljncvonKsxuhdl Ditty Other [employer] Other Start: 86-06-6031Pqybabkma encounterCameron Sixto GastroenterologyStart: 06-15-2022 End: 54-53-7664iwpcgnoggxUrrclh Dymond Other [employer] Other Start: 68-48-9090Tkajmp outpatient visit 25 minutes Elisa AntonyFPG Urgent Care ClydeStart: 06-04-2022 End: 24-70-2334khvbaytlbcXS Agapito Rubin Darrian Work Phone: [facility] Work Phone: Start: 06-04-2022 End: 79-64-8030Thbdwtj encounter procedureMD Agapito Mannsatish Work Phone: [facility] Work Phone: Start: 05-30-2022 End: 60-28-4355warwgqvshlOK Agapito Scottie Colmenares Work Phone: [facility] Work Phone: Start: 05-30-2022 End: 27-97-7110Fwphedw encounter procedureMD Agapito Mannryawais Work Phone: [facility]-Digestive Health Work Phone: Start: 05-28-2022 End: 69-42-2393sovrxiurheZsnqykcbf Breault Other [facility] [employer] Other Start: 36-02-6200Gklini outpatient visit 5 minutes Ele FriendFPSharon Urgent Care ClydeStart: 05-15-2022 End: 44-96-5796zsrosaxxvgSpgiumw Ditty Other [employer] Other Start: 76-29-6622Jyczapzun encounterCameron DittyFPG GastroenterologyStart: 05-07-2022 End: 26-22-1822Ceqjazyec to same day surgery centerMD Agapito Mannsatish Work Phone: [facility]-Digestive HealthStart: 05-07-2022 End: 01-58-1839zmwglztlajOP Agapito Mannryawais Work Phone: [facility] Work Phone: Start: 05-03-2022 End: 89-01-8656updnytaflbXzdsnv Cassia Other [facility] [employer] Other Start: 90-16-2332Ccvezcv evaluation of patient and reportPamela DymondFPG Urgent Care ClydeStart: 04-23-2022 End: 87-35-3579baxbofctzlSqhnrqn Ditty Other [employer] Other Start: 49-14-7409Dvknleuco encounterCameron DittyFPG GastroenterologyStart: 03-19-2022 End: 14-74-3816Jwppntt encounter procedureMD Agapito Colmenares Work Phone: [facility]-XRay Main CampusStart: 01-30-2022 End: 24-69-6947gsvpwxhujiSK RJ KimbleSpot[employer] Other Start: 55-69-0360Tkqndjkek encounterCameron ClaudiayNATHALIAG GastroenterologyStart: 01-14-2022 End: 59-53-5360Lhlxjmxj ReferredMD Agapito Colmenares Work Phone: [facility]-Employee Benefit ScreeningStart: 01-07-2022 End: 94-01-1508xobinbphsyAcminwzuf Breault Other [employer] Other Start: 44-97-2709Pwhmph outpatient visit 5 minutes Ele Soliman [facility] ClydeStart: 01-04-2022 End: 81-47-4092Kuhcjars ReferredMD Agapito Colmenares Work Phone: [facility]-Employee Benefit ScreeningStart: 12-30-2021 End: 47-80-7666mlapilhusuJbzpjw Dymond Other [employer] Other Start: 72-09-3189Jnillpv evaluation of patient and reportPamela CassiaFPSharon Urgent Care ClydeStart: 07-12-2021 End: 05-09-8878sjoxwmjvnwVazlm Keller Other [employer] Other Start: 79-71-1454Tesxfx outpatient visit 5 minutes Mariya Brian [facility] ClydeStart: 04-17-2021 End: 68-21-3795rhvcfpnqxuPojaro Cassia Other [employer] Other Start: 09-96-3091Jyysud outpatient visit 15 minutes Elisa DymondFPG Urgent Care ClydeStart: 41-32-9284Ofubnm outpatient visit 15 minutesPaevan AntonyFPG Urgent Care ClydeStart: 02-14-2021(URG) Urgent Care VisitPamela CassiaFPG Urgent Care Lul Procedures DateProcedureProcedure DetailPerforming ClinicianStart: 76-76-4376Qnaikhslgb Maria Esther JUARES Start: 80-60-3422MybzzcsxtgmPsqaji Rusher DPM Work Phone: Start: 83-88-1507Jyaeb dip stick/tablet rgnt non-auto w/o micrscpCorey Alyssa DO Work Phone: Start: 22-33-4672ZIQ,APTIMA HPV,AGE GDLNCorey Alyssa DO Work Phone: Start: 39-21-0592Sxuovbubgyb observation [Identifier] in Cervix by Cyto Gloria Steen CLIENT DEVELOPMENT DIRECTOR-PROJECT DEVELOPMENT DIRECTOR Work Phone: Start: 62-78-2738Otvdnt citrullinated peptide antibody Comment on above:Performed By: #### CBC-4A, UA, ENA6, ACAX3, C3-C4, ESRCRP, CCP #### [facility] [address] [facility], [address] Start: 54-07-8741MgiwhaxlguyomhfnlgyabymvlmNzhdys N Chidi MD Work Phone: Start: 10-08-2023 End: 62-78-6967YjtzrsrrktrPteucy N Chidi MD Work Phone: Start: 84-98-6720QmvjlsnjukoLejxe Meinke MD Work Phone: Start: 46-93-3044ABC 12-LEADCorey Alyssa DO Work Phone: Start: 46-78-0215Tlnzyxvtwrwaa metabolic panelYolanda Santoyo CLIENT DEVELOPMENT DIRECTOR - PROJECT DEVELOPMENT DIRECTOR Work Phone: Start: 97-82-7253ZlukdbtrclaNRHQMZKU PERRY Start: 32-69-8972XumcwbnobtlDypmn Fazio DO Work Phone: Start: 36-34-2338Tnialhskgh manometryMD Agapito Colmenares Work Phone: Start: 62-92-4450MgwzahpffcjnszsnkepckhcbhhVA Agapito Colmenares Work Phone: Start: 81-33-9867Npberjcgvgbr/tazobactamPamela Cassia Other Start: 54-20-0175Amjcqruccuf observation [Identifier] in Cervix by Cyto stainCorey Alyssa [employer] Work Phone: Start: 26-41-9528Ulibgbw hysterectomyKATALINA WEIR H/O: hysterectomyH/O: hysterectomyCorey Alyssa DO Work Phone: Ovarian structure (body structure)KATALINA WEIR Comment on above:cyst removed Plan of Treatment DateCare ActivityDetailAuthorStart: 91-22-1907SWmR,Tdap and Td Vaccines (3 - Td or Tdap)DTaP,Tdap and Td Vaccines (3 - Td or Tdap)[facility] SystemStart: 59-01-0714Lajlnjgjz for malignant neoplasm of colonNOMS HealthcareStart: 10-05-3146Jgbbuucdg for malignant neoplasm of cervixPap SmearProMedica Health SystemStart: 03-01-2026 End: 52-92-4728Diftgqd encounter abriklytr09/07/2026 3:15 PM EDT Office Visit [facility] [address] [place] [address] Donna Steen, CLIENT DEVELOPMENT DIRECTOR-PROJECT DEVELOPMENT DIRECTOR [address], [address] [place] [address] [facility] Pulmonary/Sleep MedicineStart: 40-28-8854Ymgmmpq ScreeningTobacco Screening [facility] SystemStart: 41-10-8218Stcmu BMI ScreeningAdult BMI Screening [facility] SystemStart: 92-75-7009Cickwbx ScreeningTobacco Screening [facility] SystemStart: 98-76-2468Fvdepjidf for malignant neoplasm of breastMammogramNOMS HealthcareStart: 02-16-2025 End: 57-34-7570Ozgqtcz encounter buabdtlft00/24/2025 11:30 AM EDT Office Visit [facility] [address] [place] [address] [place] [address] [place] [address] [facility] MedicineStart: 83-49-9957UZHOQ-19 Vaccine ( season)COVID-19 Vaccine ()[facility] SystemStart: 85-11-2348Nrzpubzwq vaccinationNOMD HealthcareStart: 69-90-1821Pmifhhhia for malignant neoplasm of cervixNOMS HealthcareStart: 11-23-2024 End: 63-81-0801Whgixvb encounter procedureNOMS FH PODIATRYComment on above: ArrivedStart: 68-42-7790Oranzqlbu for malignant neoplasm of breastMammogramNOMS HealthcareStart: 08-26-2024 End: 33-99-9973QD Breast - bilateral ScreeningBilateral screening mammogram Imaging Routine Encounter for screening mammogram for malignant neoplasm of breast Expected: 08/26/2024 (Approximate), Expires: 10/26/2025[facility] Work Phone: comment on above:Expected: 08/26/2024 (Approximate), Expires: 10/26/2025Start: 08-26-2024 End: 58-78-9191Xtfdity encounter procedureNOMS BCP OBComment on above:Arrived Start: 11-82-3722Zvbgosnml vaccinationInfluenza Vaccine (#1)[facility] Comment on above:Postponed from 01/25/2024 (Patient Refused)Start: 06-20-2024 Adult BMI ScreeningAdult BMI ScreeningNovant Health Brunswick Medical Centertart: 05-31-2024 DTaP/Tdap/Td Vaccines (3 - Td or Tdap)DTaP/Tdap/Td Vaccines (3 - Td or Tdap)[facility] HealthcareStart: 05-07-2024 End: 090485-bxnabtlxqyrwwc D3 [Mass/volume] in Serum or PlasmaVitamin D 25 hydroxy Total Lab Routine Arthralgia, unspecified joint Night sweats Chronic neck painBilateral hip pain Sacroiliitis (CMS/HCC) Class 1 obesity due to excess calories with serious comorbidity and body mass index (BMI) of 31.0 to 31.9 in adult Primary hypertension (CMS/HCC) Gastroesophageal reflux disease, unspecified whether esophagitis present Hypercholesteremia (CMS/HCC) Expected: 05/07/2024 (Approximate), Expires: 05/07/2025[facility] HealthcareComment on above: Expected: 05/07/2024 (Approximate), Expires: 05/07/2025Start: 05-07-2024 End: 19-27-1503JTK W Auto Differential panel - BloodCBC and differential Lab Routine Arthralgia, unspecified joint Night sweats Chronic neck pain Bilateral hip pain Sacroiliitis (CMS/HCC) Class 1 obesity due to excess calories with serious comorbidityand body mass index (BMI) of 31.0 to 31.9 in adult Primary hypertension (CMS/HCC) Gastroesophageal reflux disease, unspecified whether esophagitis present Hypercholesteremia (CMS/HCC) Expected: 05/07/2024 (Approximate), Expires: 05/07/2025[facility] HealthcareComment on above:Expected: 05/07/2024 (Approximate), Expires: 05/07/2025Start: 05-07-2024 End: 07-34-3546Llitmfqfhwutz metabolic 2000 panel - Serum or PlasmaComprehensive metabolic panel Lab Routine Arthralgia, unspecified joint Night sweats Chronic neck pain Bilateral hip pain Sacroiliitis (CMS/HCC) Class 1 obesity due to excess calories with serious comorbidity and body mass index (BMI) of 31.0 to 31.9 in adult Primary hypertension (CMS/HCC) Gastroesophageal reflux disease, unspecified whether esophagitis present Hypercholesteremia (CMS/HCC) Expected: 05/07/2024 (Approximate), Expires: 05/07/2025[facility] HealthcareComment on above: Expected: 05/07/2024 (Approximate), Expires: 05/07/2025Start: 05-07-2024 End: 67-93-9046Nisyszbhfxr sedimentation rateSedimentation rate, automated Lab Routine Arthralgia, unspecified joint Night sweats Chronic neck pain Bilateral hip pain Sacroiliitis (CMS/HCC) Class 1 obesity due to excess calories with serious comorbidity and body mass index (BMI) of 31.0 to 31.9 in adult Primary hypertension (CMS/HCC) Gastroesophageal reflux disease, unspecified whether esophagitis present Hypercholesteremia (CMS/HCC) Expected: 05/07/2024 (Approximate), Expires: 05/07/2025[facility] HealthcareComment on above:Expected: 05/07/2024 (Approximate), Expires: 05/07/2025Start: 05-07-2024 End: 68-85-8480BPS-B27 antigenHLA-B27 antigen Lab Routine Arthralgia, unspecified joint Night sweats Chronic neck pain Bilateral hip pain Sacroiliitis (CMS/HCC) Class 1 obesity due to excess calories with serious comorbidity and b maico mass index (BMI) of 31.0 to 31.9 in adult Primary hypertension (CMS/HCC) Gastroesophageal reflux disease, unspecified whether esophagitis present Hypercholesteremia (CMS/HCC) Expected: 05/07/2024(Approximate), Expires: 05/07/2025[facility] HealthcareComment on above:Expected: 05/07/2024 (Approximate), Expires: 05/07/2025Start: 05-07-2024 End: 20-54-3691Oaawl 1996 panel - Serum or PlasmaLipid panel Lab Routine Arthralgia, unspecified joint Night sweats Chronic neck pain Bilateral hip pain Sacroiliitis (CMS/HCC) Class 1 obesity due to excess calories with serious comorbidity and bodymass index (BMI) of 31.0 to 31.9 in adult Primary hypertension (CMS/HCC) Gastroesophageal reflux disease, unspecified whether esophagitis present Hypercholesteremia (CMS/HCC) Expected: 05/07/2024 (Freeman roximate), Expires: 05/07/2025[facility] Healthcare Work Phone: Comment on above:Expected: 05/07/2024 (Approximate), Expires: 05/07/2025Start: 05-07-2024 End: 14-71-5856Uvnqxhs Ab [Titer] in Serum by ImmunofluorescenceANA Lab Routine Arthralgia, unspecified joint Night sweats Chronic neck pain Bilateral hip pain Sacroiliitis (CMS/HCC) Class 1 obesity due to excess calories with serious comorbidity and body mass index (BMI) of 31.0 to 31.9 in adult Primary hypertension (CMS/HCC) Gastroesophageal reflux disease, unspecified whether esophagitis present Hypercholesteremia (CMS/HCC) Expected: 05/07/2024 (Approximate), Expires: 05/07/2025[facility] HealthcareComment on above:Expected: 05/07/2024 (Approximate), Expires: 05/07/2025Start: 05-07-2024 End: 61-87-1480Luhlfuefsz factor [Units/volume] in Serum or PlasmaRheumatoid factor Lab Routine Arthralgia, unspecified joint Night sweats Chronic neck pain Bilateral hip pain Sacroiliitis (CMS/HCC) Class 1 obesity due to excess calories with serious comorbidity and body mass index (BMI) of 31.0 to 31.9 in adult Primary hypertension (CMS/HCC) Gastroesophageal reflux disease, unspecified whether esophagitis present Hypercholesteremia (CMS/HCC) Expected: 05/07/2024 (Approximate), Expires: 05/07/2025[facility] HealthcareComment on above:Expected: 05/07/2024 (Approximate), Expires: 05/07/2025Start: 05-07-2024 End: 41-42-8913Jtldc [Mass/volume] in Serum or PlasmaUric acid Lab Routine Arthralgia, unspecified joint Night sweats Chronic neck pain Bilateral hip pain Sacroiliitis (CMS/HCC) Class 1 obesity due to excess calories with serious comorbidity and body mass index (BMI) of 31.0 to 31.9 in adult Primary hypertension (CMS/HCC) Gastroesophageal reflux disease, unspecified whether esophagitis present Hypercholesteremia (CMS/HCC) Expected: 05/07/2024 (Appro ximate), Expires: 05/07/2025[facility] HealthcareComment on above:Expected: 05/07/2024 (Approximate), Expires: 05/07/2025Start: 05-07-2024 End: 40-01-8958IH Cervical spine 2 or 3 ViewsXR cervical spine 2 or 3 views Imaging Routine Chronic neck pain Expected: 05/07/2024, Expires: 05/07/2025[facility] HealthcareComment on above:Expected: 05/07/2024, Expires: 05/07/2025Start: 05-07-2024 End: 86-95-6592TO Hip - left 3 ViewsXR hip left 2 or 3 views Imaging Routine Bilateral hip pain Expected: 05/07/2024, Expires: 05/07/2025[facility] Comment on above:Expected: 05/07/2024, Expires: 05/07/2025Start: 05-07-2024 End: 21-49-4046IF Hip - right 3 ViewsXR hip right 2 or 3 views Imaging Routine Bilateral hip pain Expected: 05/07/2024, Expires: 05/07/2025[facility] Comment on above:Expected: 05/07/2024, Expires: 05/07/2025Start: 05-07-2024 End: 81-76-9235XN Lumbar spine 2 or 3 ViewsXR lumbar spine 2 or 3 views Imaging Routine Lumbosacral strain, initial encounter Expected: 05/07/2024, Expires: 05/07/2025[facility] HealthcareComment on above:Expected: 05/07/2024, Expires: 05/07/2025Start: 05-07-2024 End: 84-32-6064BK Shoulder - left 2 ViewsXR shoulder 2+ views left Imaging Routine Rotator cuff arthropathy of both shoulders Expected: 05/07/2024, Expires: 05/07/2025[facility] HealthcareComment on above:Expected: 05/07/2024, Expires: 05/07/2025Start: 05-07-2024 End: 25-69-2332VN Shoulder - right 2 ViewsXR shoulder 2+ views right Imaging Routine Rotator cuff arthropathy of both shoulders Expected: 05/07/2024, Expires: 05/07/2025[facility] HealthcareComment on above:Expected: 05/07/2024, Expires: 05/07/2025Start: 05-07-2024 End: 43-72-8688Rwwbjud encounter /13/2024 8:40 AM EST Office Visit [facility] [address] [place] [address] [place] [address] [place] [address] Ar[facility]NOCHOCTAW [facility] FMComment on above:ArrivedStart: 01-25-2024 Influenza vaccinationNOMD HealthcareStart: 01-01-2024 End: 72-51-6751Icgtpvz encounter ftaleyiek22/08/2024 3:30 PM EDT Office Visit [facility] Part of [address] [address] Yolanda Santoyo, CLIENT DEVELOPMENT DIRECTOR - PROJECT DEVELOPMENT DIRECTOR [address] [place] [address] [address] [place] [address] 3 mos [facility] Part [facility] HospitalComment on above:3 mos gerdStart: 59-77-3422Ihtjoogqu vaccinationFlu vaccine (Season Ended)DEVORAH FATUMA [facility]ITALStart: 10-08-2023 End: 88-33-8650Gbhjt ca scrn not hi rsk indCOLORECTAL CANCER SCREENING, NOT HIGH RISK Screening for colon cancer Dysphagia, unspecified type 10/08/2023 1:15 PM [facility] 10-08-2023 End: 43-66-0760Mewpapqvtgbwzlpoggkgbditnh transoral diagnostic ESOPHAGOGASTRODUODENOSCOPY Screening for colon cancer Dysphagia, unspecified type 10/08/2023 1:15 PM [facility]: 08-21-2023 End: 28-13-3067Btpavyd encounter vlafqpggx96/28/2024 10:00 AM EDT Office Visit [facility] [address] [place] [phone] Rj Shah, [address] [place] [address] [place] [address] [facility] BCP OBStart: 08-13-2023 End: 44-45-7609Mykrion encounter vsnmnhova10/20/2024 1:30 PM EDT Office Visit [facility] [address] [place] [address] Donna Steen, CLIENT DEVELOPMENT DIRECTOR-PROJECT DEVELOPMENT DIRECTOR [address] [facility] [address] [place] [address] [facility]monary/Sleep MedicineStart: 07-04-2023 End: 53-09-2105Geejdmstlpkk / ancillary services zthvpvidaw75/09/2024 11:15 AM EST Ancillary Procedure [facility] [address] [facility] [address] [place] [address] [facility] FNR ULTRASOUNDStart: 07-02-2023 End: 46-41-4285Yfhgxrn encounter fijqhclij38/07/2024 2:15 PM EST Office Visit [facility] [address] [place], [place] [id number] Yolanda Santoyo, CLIENT DEVELOPMENT DIRECTOR - PROJECT DEVELOPMENT DIRECTOR [address] [facility] [address] [place], [place] [id number] 3 wks/ pancreatic insufficiency [facility] GastroenterologyComment on above:3 wks/ pancreatic insufficiencyStart: 06-20-2023 End: 01-23-1342Xcpfupax Xsyjphm0506/20/2023 7:30 PM EST Clinical Support [facility] - Sleep Disorders [address] [place] [address] [phone] [facility] - Sleep Disorders Start: 43-21-9765Srclfopen for malignant neoplasm of breastMammogramNOMD HealthcareStart: 55-28-3799VSYWQ-19 Vaccine ()COVID-19 Vaccine ()DEVORAH BURRIS [facility]ITALStart: 96-18-4152Uujdcrwav vaccinationNOMD HealthcareStart: 80-39-0898Elkcwwzzv for malignant neoplasm of cervixPap SmearBLUE MOUNTAIN [facility] HealthcareStart: 86-49-6870Trmqoqixd vaccinationFlu vaccine (#1)[facility]Start: 53-17-5794FX Breast - bilateral Screening [facility]: 02-22-1378Aicwseiqk mammography of bilateral breastsMM screening mammo BI w/[facility]ADA[facility] Start: 79-29-1974HrnvhnpyhThe Christ Hospitaltart: 38-67-5998GmwmiupuaThe Christ Hospitaltart: 96-33-7202CNmL,Tdap and Td Vaccines (2 - Td or Tdap)DTaP,Tdap and Td Vaccines (2 - Td or Tdap)[facility] Centertart: 47-41-5785ADaD/Tdap/Td vaccine (2 - Td or Tdap)DTaP/Tdap/Td vaccine (2 - Td or Tdap)[facility]Start: 09-60-8475Dlgltnlb screenDiabetes screenMARY WASHINGTON HEALTHCAREStart: 44-43-6681Ywdfnqdnk for malignant neoplasm of cervix [facility]Start: 74-95-1098Aadjcfsob for malignant neoplasm of cervixPap smearMARY [facility]ASHINGTON HEALTHCAREStart: 32-95-0636Xzjhpeigj B Vaccines (1 of 3 - 19+ 3-dose series)Hepatitis B Vaccines (1 of 3 - 19+ 3-dose series)[facility] HealthcareStart: 03-79-5248Kbfbb BMI Follow Up PlanAdult BMI Follow Up Plan [facility]ertart: 48-26-0476Dsquo BMI ScreeningAdult BMI Screening [facility] Centertart: 47-04-3650Onybqhdzk C screeningHepatitis C screen [facility]Start: 10-02-5420WIW screeningHIV screenMARY [facility]ASHINGTON [facility]ALTHCAREStart: 17-77-0127Lxqqnrtnys MonitoringDepression MonitoringMARY WASHINGTON HEALTHCAREStart: 55-64-4213Qzqojykugs ScreeningDepression Screening [facility] Centertart: 17-00-5471Kgihfwm ScreeningTobacco Screening [facility] Centertart: 90-95-9529Ueukx panelLipidsBON K[facility] PREBLEStart: 35-07-6004GJX Vaccines (1 of 1 - Standard series)MMR Vaccines (1 of 1 - Standard series)[facility] CenterStart: 11-52-6080Ukmngcppc B vaccine (1 of 3 - 3-dose series)Hepatitis B vaccine (1 of 3 - 3-dose series)[facility]AREStart: 56-25-9426Fxhqnoiad for malignant neoplasm of colonMetropolitan [facility] Surgical PathologySurgical Pathology Lab Routine Screening for colon cancer Dysphagia, unspecified type Release Upon Ordering for 1 Occurrences starting 10/08/2023[facility] Work Phone: Comment on above:Release Upon Ordering for 1 Occurrences starting 10/08/2023THIN PREP TIS PAP AND HR HPV DNATHIN PREP TIS PAP AND HR HPV DNA Pathology and Cytology Routine Well woman exam with routine gynecological exam Ordered: 08/26/2024[facility] CenterComment on above:Ordered: 08/26/2024US for pregnancyUS PELVIS-TRANSVAG IF INDICATED Imaging Routine Cyst of ovary, unspecified laterality Pelvic pain in female Ordered: 06/26/2023[facility] [facility] Phone: comment on above:Ordered: 06/26/2023 Immunizations Immunization DateImmunizationNotesCare TglgnwhkNfufigwb79-57-9169rldycgh toxoid, reduced diphtheria toxoid, and acellular pertussis vaccine, adsorbedAgapito Colmenares MD Work Phone: [facility] CenterUvfzpoljll78-21-1791eepdugbmr, injectable, quadrivalent, preservative freeCorey Alyssa DO Work Phone: [facility] CenterCpemrlzpzx62-84-8768pwvugrvwd virus vaccine, unspecified formulationAgapito Colmenares MD Work Phone: [facility]Aienia46-89-4843wwmgbpyya, injectable, quadrivalent, preservative freeCorey Alyssa DO Work Phone: [facility] CenterYxqomhduio16-24-7542OHXJB-07 Shekhar Guaman (Pfizer)MD Agapito Colmenares Work Phone: [facility]03-31-2021COVID-19 Shekhar Guaman (Pfizer)MD Agapito Colmenares Work Phone: [facility]09-15-2020influenza, injectable, quadrivalent, preservative freeCorey Alyssa DO Work Phone: [facility] CenterUbohfguvkl74-92-2690jctslcd toxoid, reduced diphtheria toxoid, and acellular pertussis vaccine, adsorbedCorey Alyssa DO Work Phone: [facility] Payers DatePayer CategoryPayerPolicy [id number] Managed Care - [employer] Member Subscriber Plan / Payer (Effective 2023-Present) Name: Jelani Freeman Relation to Subscriber: Self Name: Jelani Freeman Payer ID: Not on file Type: Not on file Address: [address] [id number]-zql [id number] Health Insurance 1.2.840.841003.1.13.693.2.7.9.743447.737164.61924-34-9225Qfngohq 1.2.840.802270.1.13.693.2.7.3.448[id number] 2.840.1.313934.3.57[id number] 2.0.1.684613.3.57[id number] 2.16.840.1.628303.3.57[id number] 2.840.1.517216.3.57[id number] 2.16.840.1.101225.3.579.[id number] 2.840.1.035654.3.57[id number] 2.840.1.413187.3.57[id number] 2..1.491671.3.57[id number] 2..1.966782.3.57[id number] 2..1.760452.3.57[id number] 2..1.471828.3.57[id number] 2.0.1.865857.3.579.[id number] 2.0.1.144164.3.579.[id number] 2.0.1.705425.3.57[id number] 2.0.1.786006.3.579.2.[id number] 2.840.1.756563.3.579.[id number] 2.840.1.088283.3.57[id number] 2.16.840.1.282986.3.57[id number] 2.16.840.1.498098.3.57[id number] 2.16.840.1.566808.3.57[id number] 2.16.840.1.623798.3.579.2.[id number] 2.16.840.1.348662.3.57[id number] 2.16.840.1.361928.3.579.2.9[id number] 2..840.1.723461.3.579.[id number] 2.16.840.1.312997.3.579.[id number] 2.16.840.1.547415.3.579.2.28[id number] 2.16.840.1.732976.19 [id number] 2..840.1.04942[id number] 2.840.1.222[id number] 2.840.1.111501.3.579.2.531 Social History DateTypeDetailFacilityStart: 06-13-2023 End: 46-95-3596Gno Assigned At [facility] Secure-24 Other Start: 22-47-1918Ugp [facility] At [facility]tart: 05-07-2022 End: 84-72-2338Gmuxeba smoking status NHISNever smoked tobacco (finding) [facility]: 11-13-2022 End: 56-53-1017Hfzveny use and exposureSmokeless tobacco non-userDEVORAH BURRIS [facility]ENTERSaroj [facility]ITALStart: 06-13-2023 End: 32-38-7346Mgnlufl of Social functionDEVORAH [facility] CENTERKENNA [facility]ENTERSaroj [facility]ITALStart: 62-16-1090Xot Assigned At BirthNot on fileNovant Health Brunswick Medical Centertart: 06-26-2023 End: 52-40-3522Arosfgo intakeLifetime non-drinker (finding)[facility] HealthcareStart: 05-59-6033Qobkfxn CommentCaffine intake: 1 cup a dayBLUE MOUNTAIN HOSPITAL HealthcareStart: 70-84-2053Bgeilei intakeNot AskedMARY WASHINGTON HEALTHCAREStart: 08-07-2022 Physical abuseDeniesNovant Health Brunswick Medical Centertart: 62-10-6158Ludrsxi Comment rarelyDEVORAH [facility] PREBLEStart: 96-47-3465Eiszrk identityIdentifies as female gender (finding)DEVORAH [facility] PREBLEStart: 99-65-6519Lhkntk orientationHeterosexual (finding)[facility]ASHINGTON HEALTHCARETobacco smoking status NHISTobacco smoking consumption unknownNovant Health Brunswick Medical Centerexual Orientation [facility] Jones start: 50-51-9198ZosFqumnc (finding)[facility] HospitalHow often do you need to have someone help you when you read instructions, pamphlets, or other written material from your doctor or pharmacy [SILS]NeverNOMS HealthcareWithin the last year, have you been afraid of your partner or ex-partner?NoNOMS HealthcareDo you belong to any clubs or organizations such as gnosticism groups, unions, fraternal or athletic groups, or school groups?YesNOMS HealthcareAre you now , , , , never or living with a partner?MarriedNOMS HealthcareHow hard is it for you to pay for the very basics like food, housing, medical care, and heatingNot very hardNOMS HealthcareDo you feel stress - tense, restless, nervous, or anxious, or unable to sleep at night because yourmind is troubled all the time - these days [OSQ]To some extentNOMD Healthcare(I/We) worried whether (my/our) food would run out before (I/we) got money to buy more.Never trueNOMD Healthcare Medical Equipment Procedure CodeEquipment CodeEquipment Original TextEquipment IdentifierDatesClip Int L235cm Wrk Chn Dia2.8mm Opn 11mm Braid Cath Rot Bx/10 - [id number]: 60-48-7742Ewhd Hemo L235cm Wrk Chn Thelma Opn 17mm Braid Cath Rot - [id number]: 10-08-2023 Goals DatePatient GoalDesired Activity/State Functional Status CadvUnygujewbgGtaorjGkcokzvv07-07-7247Otnahvp Health Questionnaire 2 item (PHQ- 2) [Reported][facility] Cisspkdxae87-65-6997Bhrdm score [AUDIT-C]0 02/16/2025 11:13 AM EDT Mychart, GenericNOFulton State HospitalTmbxwbepcu15-97-3162Ves often to you have a drink containing alcohol?Never 02/16/2025 11:13 AM EDT Mychart, Generic NeverMet[facility] CenterOhupoxvbwm14-96-0426Ussczawbly statusPatient does not drink 02/16/2025 11:13 AM EDT Mychart, Generic Patient does not drinkMet[facility] Psychiatric CenterLjoxbrnvri39-16-8486Xby often do you have 6 or more drinks on 1 occasion?Never 02/16/2025 11:13 AM EDT Mychart, Generic NeverNOFulton State HospitalWfwxmkvkat96-06-9786Vcjuwpdmoc StatusN/AExec[facility] Clinical Notes 02-14-2021 to 02-25-2025 Note Date & FcatEbrfFvefrpiw91-59-5687 Miscellaneous Notes* Telephone Encounter - GAMAL Thrasher - 02/25/2025 9:01 AM EDT PAP mask and supplies order with supportive documentation faxed to [facility]. documented in this encounterToledo Hospital10-03-2025 Telephone encounter Note* Telephone Encounter - ArmidaGAMAL Yepez - 02/25/2025 9:01 AM EDT PAP mask and supplies order with supportive documentation [facility] to [facility] CorkCRMVfguwp22-71-4113 History of Present illness Narrative* Donna Steen APRN-MARGO - 02/23/2025 3:00 PM EDT Images from the original note were not included. Chief Complaint: [facility]23[facility]2025. She is a 44 y.o. female [facility] for CRIS, for which auto-CPAP 5-20 cm H2O was prescribed. At the time of the last visit on 09/19/23, the plan was to continue APAP. HPI: The patient reports that she is adherent to her nocturnal ventilatory support for 7.5 hours a night7 days per week. She reports feeling the benefits of wearing it nightly and denies any am fatigue or excessive daytime sleepiness. Denies any aerophagia. She is not wearing machine with naps. She is currently having some menopause issues. She denies any dyspnea, fevers, chills, hemoptysis, wheezing, or chest pain. Overall, she is very pleased with her current status. She denies sleepiness while driving. Supplemental O2 use: none Current PAP interface: She uses a Nasal Mask. She does not use a chinstrap. She does not know use the heated inline humidifier. Cleaning supplies with soap and water. Solo Sleepiness Scale: Sitting and Reading: (!) Moderate Chance Watching TV: (!) Moderate Chance Sitting inactive in a public place (theater, meeting): Never As a passenger in a car for an hour without a break: Slight Chance Lying down in the afternoon to rest: (!) High Chance Sitting and talking to someone: Never Sitting quietly after lunch (without alcohol): Slight Chance In a car, while stopped for a few minutes in traffic: Never Total: 9 OARRS: Reviewed: no PMH: Pertinent History: Her pertinent medical history includes Past Medical History: Diagnosis Date HTN (hypertension) Major depressive disorder Pancreatic insufficiency Medications: Reviewed with patient. Current Outpatient Medications: acetaminophen (TYLENOL EXTRA STRENGTH) 500 mg tablet, Take 2 tablets (1,000 mg total) by mouth every 6 (six) hours as needed., Disp: , Rfl: cholecalciferol, vitamin D3, 2,000 units tablet, Take 1 tablet (2,000 Units total) by mouth in the morning., Disp: , Rfl: cholestyramine (QUESTRAN) 4 g packet, Take 1 packet (4 g total) by mouth daily., Disp: , Rfl: estradioL (ESTRACE) 1 mg tablet, Take 1 tablet (1 mg total) by mouth daily., Disp: , Rfl: famotidine (PEPCID) 20 mg tablet, Take 1 tablet (20 mg total) by mouth nightly., Disp: , Rfl: fexofenadine (JEANNE) 60 mg tablet, Take 1 tablet (60 mg total) by mouth daily., Disp: , Rfl: FLUoxetine (PROzac) 40 mg capsule, Take 1 capsule (40 mg total) by mouth in the morning., Disp: , Rfl: fluticasone (VERAMYST) 27.5 mcg/actuation nasal spray, Administer 2 sprays into each nostril once daily., Disp: , Rfl: lisinopriL (PRINIVIL,ZESTRIL) 10 mg tablet, Take 1 tablet (10 mg total) by mouth in the morning., Disp: , Rfl: MAGNESIUM GLYCINATE ORAL, Take 200 mg by mouth daily., Disp: , Rfl: metoprolol succinate XL (TOPROL XL) 25 mg 24 hr tablet, Take 1 tablet (25 mg total) by mouth in themorning., Disp: , Rfl: omega3/dha/epa/fish oil/vit D3 (OMEGA-3 PLUS VITAMIN D3 ORAL), Take 700 mg by mouth daily., Disp: ,Rfl: pantoprazole (PROTONIX) 40 mg EC tablet, Take 1 tablet (40 mg total) by mouth every 12 (twelve) hours., Disp: , Rfl: POTASSIUM GLUCONATE ORAL, Take by mouth in the morning., Disp: , Rfl: rosuvastatin (CRESTOR) 5 mg tablet, Take 1 tablet (5 mg total) by mouth in the morning., Disp: , Rfl: lloddt-uccetqna-qsrsekp (CREON) 36,000-114,000- 180,000 unit capsule,delayed release(DR/EC), Take 1capsule (36,000 units of lipase total) by mouth in the morning and 1 capsule (36,000 units of lipase total) at noon and 1 capsule (36,000 units of lipase total) before bedtime., Disp: , Rfl: Vitals: 02/23/25 1501 BP: (!) 127/92 Pulse: 59 SpO2: 95% Weight: 105.1 kg (231 lb 11.2 oz) Height: 166.4 cm (5' 5.5 ) Allergies: Reviewed with patient. Patient has no known allergies. Family History: History reviewed. No pertinent family history. Social History: Social History Socioeconomic History Marital status: Tobacco Use Smoking status: Never Smokeless tobacco: Never Vaping Use Vaping status: Never Used Substance and Sexual Activity Alcohol use: Never Drug use: Never Social Drivers of Health Financial Resource Strain: Low Risk (02/16/2025) Re[facility] from [facility] Overall Financial Resource Strain (CARDIA) Difficulty of Paying Living Expenses: Not very hard Food Insecurity: No Food Insecurity (02/16/2025) Received from [facility] Hunger Vital Sign Worried About Running Out of Food in the Last Year: Never true Ran Out of Food in the Last Year: Never true Transportation Needs: No Transportation Needs (02/16/2025) Received from [facility] PRAPARE - Transportation Lack of Transportation (Medical): No Lack of Transportation (Non-Medical): No Physical Activity: Insufficiently Active (02/16/2025) Received from [facility] Exercise Vital Sign Days of Exercise per Week: 1 day Minutes of Exercise per Session: 20 min Stress: Stress Concern Present (02/16/2025) Received from [facility] [place] [facility] [employer] [facility] - Occupational Stress Questionnaire Feeling of Stress : To some extent Social Connections: Moderately Integrated (02/16/2025) Received from [facility] Social Connection and Isolation Panel [NHANES] Frequency of Communication with Friends and Family: Once a week Frequency of Social Gatherings with Friends and Family: Once a week Attends Uatsdin Services: More than 4 times per year Active Member of Clubs or Organizations: Yes Attends Club or Organization Meetings: More than 4 times per year Marital Status: Interpersonal Safety: Not At Risk (02/16/2025) Received from [facility] Humiliation, Afraid, Rape, and Kick questionnaire Fear of Current or Ex-Partner: No Emotionally Abused: No Physically Abused: No Sexually Abused: No Housing Instability: Low Risk (02/16/2025) Received from [facility] Housing Stability Vital Sign Unable to Pay for Housing in the Last Year: No Number of Times Moved in the Last Year: 0 Homeless in the Last Year: No Travel History: Denies recent travel. ROS: All 11 systems have been reviewed: Review of Systems Constitutional: Negative for chills, fatigue and fever. Respiratory: Negative for cough, shortness of breath and wheezing. Cardiovascular: Negative for chest pain/discomfort. All other systems are reviewed and are negative except as noted. Physical Examination: Vital signs BP (!) 127/92 Pulse 59 Ht 166.4 cm (5' 5.5 ) Wt 105.1 kg (231 lb 11.2 oz) SpO2 95% BMI 37.97 kg/m Physical Exam Vitals and nursing note reviewed. Constitutional: Appearance: Normal appearance. She is obese. Cardiovascular: Heart sounds: Normal heart sounds. Pulmonary: Breath sounds: Normal breath sounds. Musculoskeletal: Cervical back: Neck supple. Skin: General: Skin is warm and dry. Neurological: Mental Status: She is alert and oriented to person, place, and time. Psychiatric: Mood and Affect: Mood normal. Behavior: Behavior normal. Laboratory DATA: No results found for: WBC , HGB , HCT , MCV , PLT No results found for: FERRITIN Chemistry No results found for: NA , K , CL , CO2 , BUN , CREATININE , GLU No results found for: CALCIUM , ALKPHOS , AST , ALT No results found for: TSH No results found. DATA: 06/20/23 HST: CHUCK = 7.9 Min SpO2 = 90% APAP 5-20 cm H20 pressure DME:[facility] Data card was available for PAP usage data download. PAP compliance is excellent. IMAGING/PFT Patient was never admitted. MG dig jan screen BILATERAL DIGITAL SCREENING MAMMOGRAM 05/20/2014 HISTORY: Baseline screening. Family history of breast cancer in patient's mother at age 50. COMPARISON: None. FINDINGS: Scattered densities. RIGHT BREAST: No suspicious findings to indicate malignancy. LEFT BREAST: Small asymmetry in the inner left breast at mid depth seen with confidence on only the CC view. Computer-aided detection was used in the interpretation of this examination. IMPRESSION: Small asymmetry in the inner left breast at mid depth seen with confidence on only the CC view. A diagnostic study is recommended to include a spot compression CC view, a left lateral view, and possible ultrasound. BIRADS 0 - Additional imaging recommended at this time. OVERALL ASSESSMENT- NEED ADDITIONAL IMAGING EVALUATION A letter of notification will be sent to the patient regarding the results. DICTATION START: 05/20/2014 14:00 Interpreted By: JUANITO BENTON Date: 05/20/2014 14:23 BREAST ECHO LIMITED LT HISTORY: Patient is a 33-year-old female having a diagnostic evaluation for an asymmetry seen in the left breast on recent screening mammography. TECHNIQUE: A true lateral view of the left breast as well as spot compression views in the CC projection were performed. COMPARISON: Recent screening mammography performed 05/20/2014. FINDINGS: DIAGNOSTIC MAMMOGRAPHY: On the spot compression views there is persistence of an oval density. There is no associated architectural distortion or suspicious clusters of microcalcifications. This is not definitively demonstrated on the true lateral view. FOCUSED SONOGRAPHY: Sonographic evaluation of the medial left breast demonstrates a heterogeneous primarily anechoic focus at the 11 o'clock position. This has circumscribed borders and may represent a cyst, although appears to contain internal debris or septations and may be complex. Overall this region measures 0.9 x 0.5 x 0.5 cm. IMPRESSION: Heterogeneous primarily anechoic focus at the 11 o'clock position within the left breast that may represent a complex cyst, although a 6-month follow-up evaluation is recommended with diagnostic mammography of the left breast and focused sonography to ensure stability. BIRADS 3 - Findings are probably benign. A short interval followup is recommended in 6 months. OVERALL ASSESSMENT- PROBABLY BENIGN A letter of notification will be sent to the patient regarding the results. DICTATION START: 06/13/2014 10:26 Interpreted By: SHEILA MCINTYRE Date: 06/13/2014 11:03 MG digital unilat HISTORY: Patient is a 33-year-old female having a diagnostic evaluation for an asymmetry seen in the left breast on recent screening mammography. TECHNIQUE: A true lateral view of the left breast as well as spot compression views in the CC projection were performed. COMPARISON: Recent screening mammography performed 05/20/2014. FINDINGS: DIAGNOSTIC MAMMOGRAPHY: On the spot compression views there is persistence of an oval density. There is no associated architectural distortion or suspicious clusters of microcalcifications. This is not definitively demonstrated on the true lateral view. FOCUSED SONOGRAPHY: Sonographic evaluation of the medial left breast demonstrates a heterogeneous primarily anechoic focus at the 11 o'clock position. This has circumscribed borders and may represent a cyst, although appears to contain internal debris or septations and may be complex. Overall this region measures 0.9 x 0.5 x 0.5 cm. IMPRESSION: Heterogeneous primarily anechoic focus at the 11 o'clock position within the left breast that may represent a complex cyst, although a 6-month follow-up evaluation is recommended with diagnostic mammography of the left breast and focused sonography to ensure stability. BIRADS 3 - Findings are probably benign. A short interval followup is recommended in 6 months. OVERALL ASSESSMENT- PROBABLY BENIGN A letter of notification will be sent to the patient regarding the results. DICTATION START: 06/13/2014 10:26 Interpreted By: SHEILA MCINTYRE Date: 06/13/2014 11:03 BREAST ECHO LIMITED LT LEFT BREAST ULTRASOUND 12/12/2014 HISTORY: Six-month followup of probably benign cyst in the left breast. COMPARISON: 06/13/2014. FINDINGS: Focused high-resolution real-time ultrasound in the 11 o'clock position of the right breast was performed by the technologist. There is a 0.6 x 0.3 x 0.4 cm predominantly anechoic cyst, which may contain a small internal septation. This is unchanged. No suspicious sonographic features to indicate malignancy. IMPRESSION: Unchanged 0.6 cm mildly complicated cyst in the 11 o'clock position of the left breast. A six-month followup is recommended at which time standard bilateral CC and MLO views of each breast are recommended. BI-RADS Category 3: Probably benign. DICTATION START: 12/12/2014 15:49 Interpreted By: JUANITO BENTON Date: 12/12/2014 16:25 No results found. Impression: Jelani was seen today for sleep apnea. Diagnoses and all orders for this visit: CRIS (obstructive sleep apnea) - PAP Mask and Supplies CPAP use counseling Obesity (BMI 30-39.9) BMI 37.0-37.9, adult CRIS with adherence to nocturnal ventilatory support on a nightly basis. Obesity Body mass index is 37.97 kg/m . HTN GERD Plan: Discussed diagnosis, its evaluation, treatment and usual course. All questions answered. Educational material distributed. Orders Placed This Encounter Procedures PAP Mask and Supplies Please link us to patient's machine if not completed already. Tax ID: [id number] Scheduling Instructions: Length of Need: 12 months -Full Face Interface1/3mos -Full Face Cushion 1/mo -Nasal Cushion 2/mo, -Nasal Mask 1/3mos -Pillows 2/mo -Htd Tubing 1/3mos -Headgear 1/6mos -Chin Strap1/6mos -Non-Disposable Filter1/6mos -Disposable Filter2/mo -Water Chamber1/6mos -Std Tubing 1/3 mos -Add heat humidification with tubing Please specify: PAP Mask and Supplies The face to face evaluation was performed on: 02/24/2025 Orders Placed or Reconciled This Encounter Medications acetaminophen (TYLENOL EXTRA STRENGTH) 500 mg tablet Sig: Take 2 tablets (1,000 mg total) by mouth every 6 (six) hours as needed. cholestyramine (QUESTRAN) 4 g packet Sig: Take 1 packet (4 g total) by mouth daily. famotidine (PEPCID) 20 mg tablet Sig: Take 1 tablet (20 mg total) by mouth nightly. lisinopriL (PRINIVIL,ZESTRIL) 10 mg tablet Sig: Take 1 tablet (10 mg total) by mouth in the morning. fluticasone (VERAMYST) 27.5 mcg/actuation nasal spray Sig: Administer 2 sprays into each nostril once daily. fexofenadine (JEANNE) 60 mg tablet Sig: Take 1 tablet (60 mg total) by mouth daily. MAGNESIUM GLYCINATE ORAL Sig: Take 200 mg by mouth daily. POTASSIUM GLUCONATE ORAL Sig: Take by mouth in the morning. omega3/dha/epa/fish oil/vit D3 (OMEGA-3 PLUS VITAMIN D3 ORAL) Sig: Take 700 mg by mouth daily. She is to continue APAP 5-20 cm H20 on a nightly basis. New mask and supplies as needed. Independently reviewed and interpreted data download and ESS Diet and exercise were discussed in detail. Any age appropriate or routine screening per PCP. Follow up in 12 Months time. If her condition should change prior to this she is encouraged to giveour office a call. Discussed triggers to call back before follow up including weight change > 10%, major medical issues including stroke, arrhythmia or heart attack, or significant change in symptoms. EDUCATION: Driving precautions were reviewed. I advised the patient not to drive if sleepy, and to nail puller if sleepiness occurs while driving. Above plan as discussed with the patient who acknowledged understanding and agreement. Health risks associated with untreated CRIS were discussed (cardiopulmonary, cerebrovascular, and anesthesia/sedative-related). Discussed triggers to call back before next visit including weight change > 10%, major medical issues including stroke, arrhythmia or heart attack, or significant change in symptoms. This note is dictated with the use of M*Modal.Please note that this dictation was completed with computer voice recognition software. Quite often unanticipated grammatical, syntax, homophones, and other interpretive errors are inadvertently transcribed by the computer software. Please disregard these errors. Please excuse any errors that have escaped final proofreading. Donna Steen [facility] Office: [phone] 12:44 PM on 02/24/2025 CC: MD Donna Callaway APRN-CNP 02/24/25 1245 documented in this [facility]10-01-2025 Instructions* Patient Instructions* TED Paul - 02/23/2025 3:00 PM EDT If you re looking for general health and wellness resources, please visit [email or web address]. documented in this encounterToledo Hospital09-24-2025 History of Present illness Narrative* Ai Reynolds NP - 02/16/2025 11:30 AM EDT Images from the original note were not included. Jelani Freeman is a 44 y.o. female presents with chief complaint of Hypertension (Blood pressure hasbeen elevated last night it was 180/116. She took her blood pressure with her machine after I took it it was 164/104) HPI: Patient is here for hypertension. I'm following Dr. Colmenares's plan of care for this issue. Dr. Colmenares is IN the office suite today and is supervising patient care. Patient presents today with some hypertension. She was sent a homeBlood pressure cuff from her insurance and has been taking it at home. She noted one blood pressure was 164/104 and another was 180/116. Patient does take metoprolol and states she has been taking this regularly, has not missed any doses, and is not out of medication. Patient states thatShe has not noticed her blood pressure has been more elevated on other doctor visits recently and she has been dealing with a lot of headaches. Dev going to start her on lisinopril and we will follow up with her in the next 2-3 weeks to do a blood pressure recheck. SUBJECTIVE: MEDICATIONS: Current Outpatient Medications Medication Instructions acetaminophen (Tylenol) 500 MG tablet 2 tablets, Every 6 hours PRN cholecalciferol (Vitamin D-3) 50 MCG (1999 UT) tablet Every 24 hours cholestyramine (QUESTRAN) 4 g estradiol (ESTRACE) 1 mg, Oral, Daily famotidine (Pepcid) 20 MG tablet FLUoxetine (PROzac) 40 MG capsule TAKE 1 CAPSULE IN THE MORNING lisinopril 10 mg, Oral, Daily metoprolol succinate XL (TOPROL-XL) 25 mg, Oral, Every morning pantoprazole (PROTONIX) 40 mg, Every 12 hours rosuvastatin (CRESTOR) 5 mg, Oral, Every morning ALLERGIES: Allergies Allergen Reactions Wound Dressing Adhesive Other Reaction(s): rash, skin tears Tape REVIEW OF SYMPTOMS: Review of Systems Constitutional: Negative. HENT: Negative. Eyes: Negative. Respiratory: Negative. Cardiovascular: Negative. Gastrointestinal: Negative. Genitourinary: Negative. Musculoskeletal: Negative. Skin: Negative. Neurological: Negative. Psychiatric/Behavioral: Negative. Hematological: Negative. Endocrine: Negative. Allergic/Immunologic: Negative. OBJECTIVE: Visit Vitals BP 142/86 (BP Location: Left arm, Patient Position: Sitting, BP Cuff Size: Adult) Pulse 63 Temp 97.7 F Ht 5' 5.5 Wt 236 lb SpO2 99% BMI 38.68 kg/m OB Status Hysterectomy Smoking Status Never BSA 2.22 m Physical Exam Vitals and nursing note reviewed. Constitutional: Appearance: Normal appearance. She is normal weight. HENT: Head: Normocephalic and atraumatic. Right Ear: External ear normal. Left Ear: External ear normal. Nose: Nose normal. Mouth/Throat: Mouth: Mucous membranes are moist. Pharynx: Oropharynx is clear. Eyes: Extraocular Movements: Extraocular movements intact. Conjunctiva/sclera: Conjunctivae normal. Pupils: Pupils are equal, round, and reactive to light. Cardiovascular: Rate and Rhythm: Normal rate and regular rhythm. Pulses: Normal pulses. Heart sounds: Normal heart sounds. Pulmonary: Effort: Pulmonary effort is normal. Breath sounds: Normal breath sounds. Abdominal: General: Bowel sounds are normal. Palpations: Abdomen is soft. Musculoskeletal: General: Normal range of motion. Cervical back: Normal range of motion and neck supple. Skin: General: Skin is warm and dry. Capillary Refill: Capillary refill takes less than 2 seconds. Neurological: General: No focal deficit present. Mental Status: She is alert and oriented to person, place, and time. Psychiatric: Mood and Affect: Mood normal. Behavior: Behavior normal. Thought Content: Thought content normal. Judgment: Judgment normal. ASSESSMENT AND PLAN: Assessment/Plan Diagnoses and all orders for this visit: Primary hypertension - lisinopril 10 MG tablet; Take 1 tablet (10 mg) by mouth Daily No follow-ups on file. Ai Reynolds APRN.PROJECT DEVELOPMENT DIRECTOR documented in this encounterMetropolitan [facility] [id number] Telephone encounter Note* Telephone Encounter - Berenice Maguire - 02/16/2025 9:12 AM EDT Vm left Mt, my name is Jelani Sullivan. Date of is [phone] am calling because I recently got a blood pressure monitor and using the Cennox freeman with that and my blood pressure is very high and it recommended that I call a , so I normally go to see Dr. Foy in [place], but but I am in [place], so I was hoping I could get an appointment at free on office today or soon whenever you have availability. So if you could give me a call back, my phone number is [phone] again. My name is Jelani Sullivan. It isJohn's with an A instead [place] [id number], thank you. I tried to send this message to the Pool, but it would not come up in the routing [facility] [id number] Miscellaneous Notes* Telephone Encounter - Berenice Andrez - 02/16/2025 9:12 AM EDT Vm left Mt, my name is Jelani Sullivan. Date of is [phone] am calling because I recently got a blood pressure monitor and using the Cennox freeman with that and my blood pressure is very high and it recommended that I call a drToi, so I normally go to see Dr. Foy in [place], but but I am in [place], so I was hoping I could get an appointment at free on office today or soon whenever you have availability. So if you could give me a call back, my phone number is [phone] again. My name is Jelani Sullivan. It isJohn's with [place] A [place] [id number], thank you. I tried to send this message to the Pool, but it would not come up in the routing documented in this encounterMetropolitan [facility] [id number] History of Present illness Narrative* Ida Guidry, DPM - 11/23/2024 2:15 PM EDT Images from the original note were not included. Subjective Patient ID: Jelani Freeman is a 44 y.o. female who presents for Plantar Fasciitis (Jelani Freeman 44yo patient was last seen 06/2022, relates her Plantar fasciitis has flared up. Patient is leaving on vacation/mission trip 11/28/2024. Left foot arch to heel pain. Patient is wearing powerstep with her Asicshoes. Patient stretching, tylenol or iibuprofen PRN.SS8.5.). HPI Patient last in clinic in August of 2023. Chief complaint: Bilateral heel and in-step pain; notably worse on the left. Insidious onset without known injury or trauma. Denies pop or snap sensation. Persistent, somewhat progressive symptoms on the left over the past 4-6 weeks or so. Patient describes sharp pain, well localized to the inferior heel and typical of 1st step pain and post-static dyskinesia. Denies swelling, discoloration, dysesthesias or radicular pain. Patient reports good compliance with supportive footwear, Powerstep orthoses and stretching exercises. OTC ibuprofen and/or Tylenol have failed to provide distinct relief or improvement. Patient is concerned with upcoming mission vacation trip in [place], leaving next week. Medications Current Outpatient Medications: acetaminophen (Tylenol) 500 MG tablet, Take 2 tablets by mouth every 6 (six) hours if needed, Disp:, Rfl: cholecalciferol (Vitamin D-3) 50 MCG (1999) tablet, 1 (one) time each day at the same time., Disp: , Rfl: cholestyramine (Questran) 4 g packet, Take 4 g by mouth, Disp: , Rfl: estradiol (Estrace) 1 MG tablet, TAKE 1 TABLET DAILY, Disp: 90 tablet, Rfl: 3 famotidine (Pepcid) 20 MG tablet, , Disp: , Rfl: FLUoxetine (PROzac) 40 MG capsule, TAKE 1 CAPSULE IN THE MORNING, Disp: 90 capsule, Rfl: 1 metoprolol succinate XL (Toprol-XL) 25 MG 24 hr tablet, TAKE 1 TABLET IN THE MORNING, Disp: 90 tablet, Rfl: 3 pantoprazole (ProtoNix) 40 MG EC tablet, Take 40 mg by mouth every 12 (twelve) hours., Disp: , Rfl: rosuvastatin (Crestor) 5 MG tablet, TAKE 1 TABLET IN THE MORNING, Disp: 90 tablet, Rfl: 3 Allergies Wound dressing adhesive Past Surgical History Past Surgical History: Procedure Laterality Date ABDOMINAL SURGERY 2016 CYSTOURETHROSCOPY 09/2011 DILATION AND CURETTAGE 06/2001 HYSTERECTOMY 2016 LAPAROSCOPY DIAGNOSTIC / BIOPSY / ASPIRATION / LYSIS 08/01/2023 right cyst ovary OTHER SURGICAL HISTORY 10/03/2015 Total hysterectomy with cystoscopy Family History Family History Problem Relation Name Age of Onset Breast cancer Mother Jennifer Overmyer Cancer Mother Jenniefr Overmysara Irritable bowel syndrome Maternal Grandmother Other (Bowel Rupture) Maternal Grandmother Cancer Maternal Grandfather Jose Skinner Lung cancer Maternal Grandfather Jose Skinner Cancer Paternal Grandmother Gildardo Ch Melanoma Paternal Grandmother Gildardo Ch Irritable bowel syndrome Paternal Grandfather Objective General assessment: Alert and oriented. Pleasant disposition. Wearing Asics footwear with Powersteporthoses. Vascular: DP 2/4 bilateral. PT 2/4 bilateral. CFT brisk all digits. Gradient temperature: Warm-warm bilateral. Unremarkable for ankle edema. Neurologic: Tactile and light touch sensation intact. Dermatologic: Skin turgor is good. Unremarkable for eczema or dermatitis. Orthopedic: Range of motion: Passive ankle dorsiflexion is limited, consistent with mild gastrocnemius equinus.Otherwise maintains functional ankle, subtalar and 1st MTP joint range of motion. Lesion pattern: No forefoot or digital discrete keratotic lesions are noted. Focused exam left foot: Moderate-fairly sharp point tenderness medial calcaneal tubercle/medial fascial insertion; without swelling, warmth, discoloration or nodular formation. Lateral squeeze of thecalcaneus non-tender. Posterior joint line and Achilles tendon construct non-tender. Midfoot and forefoot structures non-tender. Focused exam right foot: Mild point tenderness over the medial calcaneal tubercle; without swelling, warmth, discoloration or nodular formation. Lateral squeeze of the calcaneus is non-tender. Posterior joint line and Achilles tendon construct non-tender. Radiology: Assessment/Plan Insertional plantar fasciitis/heel spur syndrome bilateral; symptoms notably worse on the left. Plan: Review of clinical findings, differential diagnosis, etiology and contributing/aggravating factors, treatment strategy, rationale and objectives. Patient prefers against injection therapy.. Rx: Prednisone taper dose. Support strapping left foot 5-7 days. Encourage compliance with supportive footwear, Powerstep orthoses and stretching exercises as directed. Discourage any barefoot walking, particularly when 1st arising. Patient is scheduled for mission trip in [place], [facility] next week. Procedure: This note was created with the assistance of a speech recognition program. While intending to generate a timely document that accurately reflects the content of the visit, no guarantee can be provided that every grammatical or spelling mistake has been or will be identified or corrected. Thank you for your understanding. Ida Guidry DPM documented in this [facility]07-01-2025 Instructions* Patient Instructions* Ida Guidry DPM - 11/23/2024 2:15 PM EDT As noted documented in this [facility]06-30-2025 Telephone encounter Note* Telephone Encounter - Christopher Rivers - 11/22/2024 8:44 AM EDT Pt left a message over the weekend requesting a steroid as she is going on vacation on November 28. She mentioned that her plantar fasciitis is flaring up as she has been wearing flip flops. You last saw her in the office on 07/18/2022 and last prescribed her predniSONE on 09/11/2023. ([facility]: [facility]) [facility] [id number] Miscellaneous Notes* Telephone Encounter - Christopher Rivers - 11/22/2024 8:44 AM EDT Pt left a message over the weekend requesting a steroid as she is going on vacation on November 28. She mentioned that her plantar fasciitis is flaring up as she has been wearing flip flops. You last saw her in the office on 07/18/2022 and last prescribed her predniSONE on 09/11/2023. ([facility]: [facility]) documented in this [facility]05-27-2025 Hospital Discharge instructions Patient Education 10/19/2024 11:38:39 Renal Mass Renal Mass A renal mass is an abnormal growth in the kidney. It may be found while performing an MRI, CT scan,or ultrasound to evaluate other problems of the abdomen. A renal mass that is cancerous (malignant)may grow or spread quickly. Others are not cancerous (benign). Renal masses include: Tumors. These may be malignant or benign. ?The most common type of kidney cancer in adults is renal cell carcinoma. In children, the most common type of kidney cancer is Wilms tumor. ?The most common benign tumors of the kidney include renal adenomas, oncocytomas, and angiomyolipoma (AML). Cysts. These are fluid-filled sacs that form on or in the kidney. What are the causes? Certain types of cancers, infections, or injuries can cause a renal mass. It is not always known what causes a cyst to develop in or on the kidney. What are the signs or symptoms? Often, a renal mass does not cause any signs or symptoms; most kidney cysts do not cause symptoms. How is this diagnosed? Your health care provider may recommend tests to diagnose the cause of your renal mass. These testsmay be done if a renal mass is found: Physical exam. Blood tests. Urine tests. Imaging tests, such as ultrasound, CT scan, or MRI. Biopsy. This is a small sample that is removed from the renal mass and tested in a lab. The exact tests and how often they are done will depend on: The size and appearance of the renal mass. Risk factors or medical conditions that increase your risk for problems. Any symptoms associated with the renal mass, or concerns that you have about it. Tests and physical exams may be done once, or they may be done regularly for a period of time. Tests and exams that are done regularly will help monitor whether the mass is growing and beginning to cause problems. How is this treated? Treatment is not always needed for this condition. Your health care provider may recommend careful monitoring and regular tests and exams. Treatment will depend on the cause of the mass. Treatment for a cancerous renal mass may include surgical removal, chemotherapy, radiation, or immunotherapy. Most kidney cysts do not need to be treated. Follow these instructions at home: What you need to do at home will depend on the cause of the mass. Follow the instructions that yourhealth care provider gives to you. In general: Take klit-szj-aeupgpo and prescription medicines only as told by your health care provider. If you were prescribed an antibiotic medicine, take it as told by your health care provider. Do notstop taking the antibiotic even if you start to feel better. Follow any restrictions that are given to you by your health care provider. Keep all follow-up visits. This is important. ?You may need to see your health care provider once or twice a year to have CT scans and ultrasounds. These tests will show if your renal mass has changed or grown. Contact a health care provider if you: Have pain in your side or back (flank pain). Have a fever. Feel full soon after eating. Have pain or swelling in the abdomen. Lose weight. Get help right away if: Your pain gets worse. There is blood in your urine. You cannot urinate. You have chest pain. You have trouble breathing. These symptoms may represent a serious problem that is an emergency. Do not wait to see if the symptoms will go away. Get medical help right away. Call your local emergency services (911 in the [place] Summary A renal mass is an abnormal growth in the kidney. It may be cancerous (malignant) and grow or spread quickly, or it may not be cancerous (benign). Renal masses often do not have any signs or symptoms. Renal masses may be found while performing an MRI, CT scan, or ultrasound for other problems of theabdomen. Your health care provider may recommend that you have tests to diagnose the cause of your renal mass. These may include a physical exam, blood tests, urine tests, imaging, or a biopsy. Treatment is not always needed for this condition. Careful monitoring may be recommended. This information is not intended to replace advice given to you by your health care provider. Make sure you discuss any questions you have with your health care provider. Document Revised: 11/06/2020 Document Reviewed: 11/06/2020 [employer] Patient Education 2023 [employer]. Follow Up Care 10/04/2024 10:45:44 With:MOR HARPER, Maria Esther Salguero, URL Address: [facility] [address] [place] [address]- When: Unknown [facility] 05-27-2025 NotePatient Education Urology Renal Mass A renal mass is an abnormal growth in the kidney. It may be found while performing an MRI, CT scan,or ultrasound to evaluate other problems of the abdomen. A renal mass that is cancerous (malignant)may grow or spread quickly. Others are not cancerous (benign). Renal masses include: ??? Tumors. These may be malignant or benign. ? The most common type of kidney cancer in adults is renal cell carcinoma. In children, the most common type of kidney cancer is Wilms tumor. ? The most common benign tumors of the kidney include renal adenomas, oncocytomas, and angiomyolipoma (AML). ??? Cysts. These are fluid-filled sacs that form on or in the kidney. What are the causes? Certain types of cancers, infections, or injuries can cause a renal mass. It is not always known what causes a cyst to develop in or on the kidney. What are the signs or symptoms? Often, a renal mass does not cause any signs or symptoms; most kidney cysts do not cause symptoms. How is this diagnosed? Your health care provider may recommend tests to diagnose the cause of your renal mass. These testsmay be done if a renal mass is found: ??? Physical exam. ??? Blood tests. ??? Urine tests. ??? Imaging tests, such as ultrasound, CT scan, or MRI. ??? Biopsy. This is a small sample that is removed from the renal mass and tested in a lab. The exact tests and how often they are done will depend on: ??? The size and appearance of the renal mass. ??? Risk factors or medical conditions that increase your risk for problems. ??? Any symptoms associated with the renal mass, or concerns that you have about it. Tests and physical exams may be done once, or they may be done regularly for a period of time. Tests and exams that are done regularly will help monitor whether the mass is growing and beginning to cause problems. How is this treated? Treatment is not always needed for this condition. Your health care provider may recommend careful monitoring and regular tests and exams. Treatment will depend on the cause of the mass. Treatment for a cancerous renal mass may include surgical removal, chemotherapy, radiation, or immunotherapy. Most kidney cysts do not need to be treated. Follow these instructions at home: What you need to do at home will depend on the cause of the mass. Follow the instructions that yourhealth care provider gives to you. In general: ??? Take nopk-cra-dxcffum and prescription medicines only as told by your health care provider. ??? If you were prescribed an antibiotic medicine, take it as told by your health care provider. Donot stop taking the antibiotic even if you start to feel better. ??? Follow any restrictions that are given to you by your health care provider. ??? Keep all follow-up visits. This is important. ? You may need to see your health care provider once or twice a year to have CT scans and ultrasounds. These tests will show if your renal mass has changed or grown. Contact a health care provider if you: ??? Have pain in your side or back (flank pain). ??? Have a fever. ??? Feel full soon after eating. ??? Have pain or swelling in the abdomen. ??? Lose weight. Get help right away if: ??? Your pain gets worse. ??? There is blood in your urine. ??? You cannot urinate. ??? You have chest pain. ??? You have trouble breathing. These symptoms may represent a serious problem that is an emergency. Do not wait to see if the symptoms will go away. Get medical help right away. Call your local emergency services (911 in the [place] Summary ??? A renal mass is an abnormal growth in the kidney. It may be cancerous (malignant) and grow or spread quickly, or it may not be cancerous (benign). Renal masses often do not have any signs or symptoms. ??? Renal masses may be found while performing an MRI, CT scan, or ultrasound for other problems ofthe abdomen. ??? Your health care provider may recommend that you have tests to diagnose the cause of your renalmass. These may include a physical exam, blood tests, urine tests, imaging, or a biopsy. ??? Treatment is not always needed for this condition. Careful monitoring may be recommended. This information is not intended to replace advice given to you by your health care provider. Make sure you discuss any questions you have with your health care provider. Document Revised: 11/06/2020 Document Reviewed: 11/06/2020 [employer] Patient Education ? 2023 [employer].[facility] 10-04-2024 Hospital Discharge instructions Patient Education 10/04/2024 10:10:21 Hematuria, Adult Hematuria, Adult Hematuria is blood in the urine. Blood may be visible in the urine, or it may be identified with a test. This condition can be caused by infections of the bladder, urethra, kidney, or prostate. Otherpossible causes include: Kidney stones. Cancer of the urinary tract. Too much calcium in the urine. Conditions that are passed from parent to child (inherited conditions). Exercise that requires a lot of energy. Infections can usually be treated with medicine, and a kidney stone usually will pass through your urine. If neither of these is the cause of your hematuria, more tests may be needed to identify the cause of your symptoms. It is very important to tell your health care provider about any blood in your urine, even if it ispainless or the blood stops without treatment. Blood in the urine, when it happens and then stops and then happens again, can be a symptom of a very serious condition, including cancer. There is no pain in the initial stages of many urinary cancers. Follow these instructions at home: Medicines Take iqln-qme-rpgwjbr and prescription medicines only as told by your health care provider. If you were prescribed an antibiotic medicine, take it as told by your health care provider. Do notstop taking the antibiotic even if you start to feel better. Eating and drinking Drink enough fluid to keep your urine pale yellow. It is recommended that you drink 3 4 quarts (2.83.8 L) a day. If you have been diagnosed with an infection, drinking cranberry juice in addition tolarge amounts of water is recommended. Avoid caffeine, tea, and carbonated beverages. These tend to irritate the bladder. Avoid alcohol because it may irritate the prostate (in males). General instructions If you have been diagnosed with a kidney stone, follow your health care provider's instructions about straining your urine to catch the stone. Empty your bladder often. Avoid holding urine for long periods of time. If you are female: ?After a bowel movement, wipe from front to back and use each piece of toilet paper only once. ?Empty your bladder before and after sex. Pay attention to any changes in your symptoms. Tell your health care provider about any changes or any new symptoms. It is up to you to get the results of any tests. Ask your health care provider, or the department that is doing the test, when your results will be ready. Keep all follow-up visits. This is important. Contact a health care provider if: You develop back pain. You have a fever or chills. You have nausea or vomiting. Your symptoms do not improve after 3 days. Your symptoms get worse. Get help right away if: You develop severe vomiting and are unable to take medicine without vomiting. You develop severe pain in your back or abdomen even though you are taking medicine. You pass a large amount of blood in your urine. You pass blood clots in your urine. You feel very weak or like you might faint. You faint. Summary Hematuria is blood in the urine. It has many possible causes. It is very important that you tell your health care provider about any blood in your urine, even ifit is painless or the blood stops without treatment. Take ujtv-rug-qknxxld and prescription medicines only as told by your health care provider. Drink enough fluid to keep your urine pale yellow. This information is not intended to replace advice given to you by your health care provider. Make sure you discuss any questions you have with your health care provider. Document Revised: 01/10/2021 Document Reviewed: 01/10/2021 [employer] Patient Education 2023 [employer]. Follow Up Care 09/30/2024 16:14:43 With:[facility] Address: When: Unknown Comments:For procedure as scheduled. [facility] 05-12-2025 NotePatient Education Urology Hematuria, Adult Hematuria is blood in the urine. Blood may be visible in the urine, or it may be identified with a test. This condition can be caused by infections of the bladder, urethra, kidney, or prostate. Otherpossible causes include: ??? Kidney stones. ??? Cancer of the urinary tract. ??? Too much calcium in the urine. ??? Conditions that are passed from parent to child (inherited conditions). ??? Exercise that requires a lot of energy. Infections can usually be treated with medicine, and a kidney stone usually will pass through your urine. If neither of these is the cause of your hematuria, more tests may be needed to identify the cause of your symptoms. It is very important to tell your health care provider about any blood in your urine, even if it ispainless or the blood stops without treatment. Blood in the urine, when it happens and then stops and then happens again, can be a symptom of a very serious condition, including cancer. There is no pain in the initial stages of many urinary cancers. Follow these instructions at home: Medicines ??? Take kvfj-iif-kpprbcd and prescription medicines only as told by your health care provider. ??? If you were prescribed an antibiotic medicine, take it as told by your health care provider. Donot stop taking the antibiotic even if you start to feel better. Eating and drinking ??? Drink enough fluid to keep your urine pale yellow. It is recommended that you drink 3?4 quarts (2.8?3.8 L) a day. If you have been diagnosed with an infection, drinking cranberry juice in addition to large amounts of water is recommended. ??? Avoid caffeine, tea, and carbonated beverages. These tend to irritate the bladder. ??? Avoid alcohol because it may irritate the prostate (in males). General instructions ??? If you have been diagnosed with a kidney stone, follow your health care provider's instructionsabout straining your urine to catch the stone. ??? Empty your bladder often. Avoid holding urine for long periods of time. ??? If you are female: ? After a bowel movement, wipe from front to back and use each piece of toilet paper only once. ? Empty your bladder before and after sex. ??? Pay attention to any changes in your symptoms. Tell your health care provider about any changesor any new symptoms. ??? It is up to you to get the results of any tests. Ask your health care provider, or the department that is doing the test, when your results will be ready. ??? Keep all follow-up visits. This is important. Contact a health care provider if: ??? You develop back pain. ??? You have a fever or chills. ??? You have nausea or vomiting. ??? Your symptoms do not improve after 3 days. ??? Your symptoms get worse. Get help right away if: ??? You develop severe vomiting and are unable to take medicine without vomiting. ??? You develop severe pain in your back or abdomen even though you are taking medicine. ??? You pass a large amount of blood in your urine. ??? You pass blood clots in your urine. ??? You feel very weak or like you might faint. ??? You faint. Summary ??? Hematuria is blood in the urine. It has many possible causes. ??? It is very important that you tell your health care provider about any blood in your urine, even if it is painless or the blood stops without treatment. ??? Take exjt-yka-fhmeolh and prescription medicines only as told by your health care provider. ??? Drink enough fluid to keep your urine pale yellow. This information is not intended to replace advice given to you by your health care provider. Make sure you discuss any questions you have with your health care provider. Document Revised: 01/10/2021 Document Reviewed: 01/10/2021 [employer] Patient Education ? 2023 [employer].[facility] 08-26-2024 History of Present illness Narrative* Altagracia Chairez MA - 08/26/2024 9:00 AM EDT Reason for Appointment: Patient ID: Jelani Freeman is a 43 y.o. female who presents for Gynecologic Exam Patient presents today for Annual Exam. MEDICATIONS Current Outpatient Medications Medication Instructions acetaminophen (Tylenol) 500 MG tablet 2 tablets, Every 6 hours PRN cholecalciferol (Vitamin D-3) 50 MCG (1999) tablet Every 24 hours cholestyramine (QUESTRAN) 4 g estradiol (ESTRACE) 1 mg, Oral, Daily famotidine (Pepcid) 20 MG tablet FLUoxetine (PROzac) 40 MG capsule TAKE 1 CAPSULE IN THE MORNING metoprolol succinate XL (TOPROL-XL) 25 mg, Oral, Every morning pantoprazole (PROTONIX) 40 mg, Every 12 hours rosuvastatin (CRESTOR) 5 mg, Oral, Every morning ALLERGIES Allergies Allergen Reactions Wound Dressing Adhesive Other Reaction(s): rash, skin tears Tape PROBLEMS Active Ambulatory Problems Diagnosis Date Noted Depression (CMS/HCC) 11/12/2022 Difficulty walking 11/12/2022 Dysphagia 11/12/2022 Hypercholesteremia (CMS/HCC) 11/12/2022 Hypertension (CMS/HCC) 11/12/2022 Obesity 11/12/2022 Seasonal allergic rhinitis 11/12/2022 Unrefreshed by sleep 11/12/2022 Pancreatic insufficiency (CMS/HCC) 01/20/2023 GERD (gastroesophageal reflux disease) 05/07/2024 Resolved Ambulatory Problems Diagnosis Date Noted Irritable bowel 11/12/2022 Muscle strain 11/12/2022 Obstructive sleep apnea syndrome 11/12/2022 Past Medical History: Diagnosis Date Breast cyst, left Fatigue, unspecified type Menopause Never smoked tobacco Obesity (BMI 30-39.9) Ovarian mass, right Seasonal allergies HISTORY PAST MEDICAL HISTORY SOCIAL HISTORY Past Medical History: Diagnosis Date Breast cyst, left Depression (CMS/HCC) Fatigue, unspecified type Irritable bowel Menopause Never smoked tobacco Obesity (BMI 30-39.9) Ovarian mass, right Seasonal allergies Social History Tobacco Use Smoking status: Never Smokeless tobacco: Never Substance Use Topics Alcohol use: Never Comment: Caffine intake: 1 cup a day Drug use: Never FAMILY HISTORY Family History Problem Relation Name Age of Onset Breast cancer Mother Cancer Mother Irritable bowel syndrome Maternal Grandmother Other (Bowel Rupture) Maternal Grandmother Cancer Maternal Grandfather Lung cancer Maternal Grandfather Cancer Paternal Grandmother Melanoma Paternal Grandmother Irritable bowel syndrome Paternal Grandfather SURGICAL HISTORY Past Surgical History: Procedure Laterality Date CYSTOURETHROSCOPY 09/2011 DILATION AND CURETTAGE 06/2001 HYSTERECTOMY 2016 LAPAROSCOPY DIAGNOSTIC / BIOPSY / ASPIRATION / LYSIS 08/01/2023 right cyst ovary OTHER SURGICAL HISTORY 10/03/2015 Total hysterectomy with cystoscopy REVIEW OF SYSTEMS Review of Systems: Review of Systems All other systems reviewed and are negative. OBJECTIVE Objective: Physical Exam Constitutional: Appearance: Normal appearance. She is well-developed. Genitourinary: Vulva normal. Vaginal cuff intact. Right Adnexa: not tender and no mass present. Left Adnexa: not tender and no mass present. Cervix is absent. No cervical discharge. Uterus is absent. Breasts: Breasts are soft. Right: Normal. Left: Normal. HENT: Head: Normocephalic. Nose: Nose normal. Mouth/Throat: Mouth: Mucous membranes are moist. Cardiovascular: Rate and Rhythm: Normal rate and regular rhythm. Pulmonary: Effort: Pulmonary effort is normal. Abdominal: General: Bowel sounds are normal. There is no distension. Palpations: Abdomen is soft. Tenderness: There is no abdominal tenderness. There is no guarding or rebound. Musculoskeletal: General: No swelling. Normal range of motion. Cervical back: Normal range of motion. Right lower leg: No edema. Left lower leg: No edema. Neurological: General: No focal deficit present. Mental Status: She is alert and oriented to person, place, and time. Skin: General: Skin is warm and dry. Psychiatric: Mood and Affect: Mood normal. Behavior: Behavior normal. Vitals and nursing note reviewed. Exam conducted with a supervisor asbestos textile present. Vitals: Estimated body mass index is 33 kg/m as calculated from the following: Height as of 06/14/24: 5' 10 . Weight as of this encounter: 230 lb. BP: 130/78 No LMP recorded. Patient has had a hysterectomy. ASSESSMENT & PLAN ICD-10-CM 1. Well woman exam with routine gynecological exam Z01.419 THIN PREP TIS PAP AND HR HPV DNA POCT urinalysis dipstick manually resulted 2. Encounter for screening mammogram for malignant neoplasm of breast Z12.31 Bilateral screening mammogram Bilateral screening mammogram 3. H/O: hysterectomy Z90.710 Annual: Patient presents today for an annual exam. Patient states she is having right ovary pain. Pap was obtained without difficulty and patient given mammogram order to have scheduled/obtained. --Patient advised that if at anytime she starts to have pelvic/ovary pain again then she is able tocall office and pelvic US can be ordered. Discussed blood in urine and antibiotic will be sent to pharmacy and patient is following up with specialist in a few weeks and they will obtain a urine dip at that time. If positive discussed urology referral if needed. Orders Placed This Encounter Procedures Bilateral screening mammogram POCT urinalysis dipstick manually resulted Follow Up: Patient is to return in one year for annual unless needed otherwise. Documented by Altagracia Chairez MA on behalf of: Rj Shah DO documented in this encounterMetropolitan Saint Louis Psychiatric [id number] History of Present illness Narrative* Agapito Colmenares MD - 06/14/2024 9:00 AM EST Images from the original note were not included. Jelani Freeman is a 43 y.o. female presents with chief complaint of Follow-up (Patient is here for a follow up for being off work for being sick. Patient reports that she went to work on Friday, woke upMonday night throwing up and fever. Patient states that she still wasn't feeling well Friday and Friday. Patient thinks that she had the norvovirus and was concerned that she was contagious and stayed home too. Patient is going to need paper work filled out for her employer. ) HPI: Patient presents today she notes that she was sick on June 08 through the with gastroenteritis. Emesis was short-lived but certainly bowel changes. She has chronic bowel issues also but that is been fairly well-controlled with the Questran. Her reflexes also controlled as long she takes her medications. Blood pressure is under good control today. Patient mainly needs a note for work forthe through the . SUBJECTIVE: MEDICATIONS: Current Outpatient Medications Medication Instructions acetaminophen (Tylenol) 500 MG tablet 2 tablets, Every 6 hours PRN cholecalciferol (Vitamin D-3) 50 MCG (1999 UT) tablet Every 24 hours cholestyramine (QUESTRAN) 4 g estradiol (ESTRACE) 1 mg, Oral, Daily famotidine (Pepcid) 20 MG tablet FLUoxetine (PROzac) 40 MG capsule TAKE 1 CAPSULE IN THE MORNING metoprolol succinate XL (TOPROL-XL) 25 mg, Oral, Every morning pantoprazole (PROTONIX) 40 mg, Every 12 hours rosuvastatin (CRESTOR) 5 mg, Oral, Every morning ALLERGIES: Allergies Allergen Reactions Wound Dressing Adhesive Other Reaction(s): rash, skin tears Tape REVIEW OF SYMPTOMS: Review of Systems OBJECTIVE: Visit Vitals BP 130/84 (BP Location: Left arm, Patient Position: Sitting, BP Cuff Size: Large adult) Pulse 69 Temp 97.1 F Resp 18 Ht 5' 10 Wt 220 lb SpO2 98% BMI 31.57 kg/m OB Status Hysterectomy Smoking Status Never BSA 2.22 m Physical Exam Constitutional: Appearance: Normal appearance. HENT: Head: Normocephalic and atraumatic. Neck: Vascular: No carotid bruit. Cardiovascular: Rate and Rhythm: Normal rate and regular rhythm. Pulses: Normal pulses. Heart sounds: Normal heart sounds. Pulmonary: Effort: Pulmonary effort is normal. Breath sounds: Normal breath sounds. Musculoskeletal: Right lower leg: No edema. Left lower leg: No edema. Lymphadenopathy: Cervical: No cervical adenopathy. Neurological: Mental Status: She is alert and oriented to person, place, and time. Psychiatric: Behavior: Behavior normal. ASSESSMENT AND PLAN: Assessment/Plan Diagnoses and all orders for this visit: Gastroenteritis Gastroesophageal reflux disease without esophagitis Primary hypertension (CMS/HCC) Chronic diarrhea Class 1 obesity due to excess calories with serious comorbidity and body mass index (BMI) of 31.0 to 31.9 in adult Follow up in about 6 months (around 12/12/2024). documented in this encounter95 [address] [id number] History of Present illness Narrative* Keiko Huff MA - 05/07/2024 8:40 AM EST Due wellness labs and flu vaccine No imagine done 09/2023- Colonoscopy 2023- mammogram * Agapito Colmenares MD - 05/07/2024 8:40 AM EST Images from the original note were not included. Jelani Freeman is a 43 y.o. female presents with chief complaint of Shoulder Pain (Patient is here forright shoulder pain. Patient states that she has been having issues with it for a while now. She did physical therapy a while back for her shoulder. She says that the pain feels different this time.)and Hip Pain (Patient is having bilateral hip pain. Patient reports that she has been having the pain for about a year now. She say that it hurts to walk for long periods of time. Patient has been seeing a chiropractor, but not as often as she should. ) HPI: Patient presents today she has had issues with arthralgias now for quite some time. She really describes diffuse arthralgias shoulders knees hips ankles. She also states that she occasionally gets night sweats. She is assuming that is from menopause however I am concerned maybe there is something else going on. No family history of arthritic conditions. I would like to check her for connective tissue disease. She has had bilateral hip pain for a year all the systemic from the sacroiliac joints.Possibly ankylosing spondylitis. She has no signs of psoriasis or skin manifestations. Really no hand involvement from a rheumatoid standpoint. Her pelvis is out of alignment she does have sacroiliitis as well as a lot of cervical chronic pain bilateral shoulders appear to be rotator cuff related just by symptomatology and a positive empty can sign. Patient has had shoulder pain on and off 2 years ago was not therapy which improved and now things have returned. She is using Tylenol PRN. Patientwithout really any other constitutional symptoms she states her fatigue is better since she has been on her CPAP for obstructive sleep apnea. Her blood pressure is under good control. She is seeing [facility] specialist for reflux as well as chronic diarrhea. Shoulder Pain Hip Pain SUBJECTIVE: MEDICATIONS: Current Outpatient Medications Medication Instructions acetaminophen (Tylenol) 500 MG tablet 2 tablets, Oral, Every 6 hours PRN cholecalciferol (Vitamin D-3) 50 MCG (2000 UT) tablet Every 24 hours cholestyramine (QUESTRAN) 4 g estradiol (ESTRACE) 1 mg, Oral, Daily famotidine (Pepcid) 20 MG tablet FLUoxetine (PROzac) 40 MG capsule TAKE 1 CAPSULE IN THE MORNING methocarbamol (ROBAXIN) 750 mg, Oral, 3 times daily metoprolol succinate XL (TOPROL-XL) 25 mg, Oral, Every morning pantoprazole (PROTONIX) 40 mg, Every 12 hours predniSONE (Deltasone) 10 MG tablet 6 TABS every day X 3 DAYS, 4 TABS every day X 3 DAYS, 2 TABS every day X 3 DAYS, 1 TAB every day X 3 DAYS rifAXIMin (Xifaxan) 550 MG tablet 1 tablet, 3 times daily rosuvastatin (CRESTOR) 5 mg, Oral, Every morning ALLERGIES: Allergies Allergen Reactions Wound Dressing Adhesive Other Reaction(s): rash, skin tears Tape REVIEW OF SYMPTOMS: Review of Systems OBJECTIVE: Visit Vitals BP 120/78 (BP Location: Left arm, Patient Position: Sitting, BP Cuff Size: Adult) Pulse 74 Temp 97.1 F Resp 18 Ht 5' 10 Wt 220 lb SpO2 98% BMI 31.57 kg/m OB Status Hysterectomy Smoking Status Never BSA 2.22 m Physical Exam Constitutional: Appearance: Normal appearance. HENT: Head: Normocephalic and atraumatic. Musculoskeletal: Comments: Pelvis out of alignment pain with palpation of the sacroiliac joint. Positive empty can sign. Muscle stiffness in the C-spine Neurological: Mental Status: She is alert. ASSESSMENT AND PLAN: Assessment/Plan Diagnoses and all orders for this visit: Arthralgia, unspecified joint - Lipid panel; Future - Comprehensive metabolic panel; Future - CBC and differential; Future - Sedimentation rate, automated; Future - Uric acid; Future - Rheumatoid factor; Future - PANCHO; Future - Vitamin D 25 hydroxy Total; Future - HLA-B27 antigen; Future Night sweats - Lipid panel; Future - Comprehensive metabolic panel; Future - CBC and differential; Future - Sedimentation rate, automated; Future - Uric acid; Future - Rheumatoid factor; Future - PANCHO; Future - Vitamin D 25 hydroxy Total; Future - HLA-B27 antigen; Future Rotator cuff arthropathy of both shoulders - XR shoulder 2+ views left; Future - XR shoulder 2+ views right; Future Chronic neck pain - Lipid panel; Future - Comprehensive metabolic panel; Future - CBC and differential; Future - Sedimentation rate, automated; Future - Uric acid; Future - Rheumatoid factor; Future - PANCHO; Future - Vitamin D 25 hydroxy Total; Future - HLA-B27 antigen; Future - XR cervical spine 2 or 3 views; Future Bilateral hip pain - Lipid panel; Future - Comprehensive metabolic panel; Future - CBC and differential; Future - Sedimentation rate, automated; Future - Uric acid; Future - Rheumatoid factor; Future - PANCHO; Future - Vitamin D 25 hydroxy Total; Future - HLA-B27 antigen; Future - XR hip left 2 or 3 views; Future - XR hip right 2 or 3 views; Future Sacroiliitis (CMS/HCC) - Lipid panel; Future - Comprehensive metabolic panel; Future - CBC and differential; Future - Sedimentation rate, automated; Future - Uric acid; Future - Rheumatoid factor; Future - PANCHO; Future - Vitamin D 25 hydroxy Total; Future - HLA-B27 antigen; Future Lumbosacral strain, initial encounter - XR lumbar spine 2 or 3 views; Future - methocarbamol (Robaxin) 750 MG tablet; Take 1 tablet (750 mg) by mouth in the morning and 1 tablet (750 mg) in the evening and 1 tablet (750 mg) before bedtime. - predniSONE (Deltasone) 10 MG tablet; 6 TABS every day X 3 DAYS, 4 TABS every day X 3 DAYS, 2 TABSevery day X 3 DAYS, 1 TAB every day X 3 DAYS Class 1 obesity due to excess calories with serious comorbidity and body mass index (BMI) of 31.0 to 31.9 in adult - Lipid panel; Future - Comprehensive metabolic panel; Future - CBC and differential; Future - Sedimentation rate, automated; Future - Uric acid; Future - Rheumatoid factor; Future - PANCHO; Future - Vitamin D 25 hydroxy Total; Future - HLA-B27 antigen; Future Primary hypertension (CMS/HCC) - Lipid panel; Future - Comprehensive metabolic panel; Future - CBC and differential; Future - Sedimentation rate, automated; Future - Uric acid; Future - Rheumatoid factor; Future - PANCHO; Future - Vitamin D 25 hydroxy Total; Future - HLA-B27 antigen; Future Gastroesophageal reflux disease, unspecified whether esophagitis present - Lipid panel; Future - Comprehensive metabolic panel; Future - CBC and differential; Future - Sedimentation rate, automated; Future - Uric acid; Future - Rheumatoid factor; Future - PANCHO; Future - Vitamin D 25 hydroxy Total; Future - HLA-B27 antigen; Future Hypercholesteremia (CMS/HCC) - Lipid panel; Future - Comprehensive metabolic panel; Future - CBC and differential; Future - Sedimentation rate, automated; Future - Uric acid; Future - Rheumatoid factor; Future - PANCHO; Future - Vitamin D 25 hydroxy Total; Future - HLA-B27 antigen; Future Chronic bilateral low back pain without sciatica Follow up if symptoms worsen or fail to improve. documented in this encounterMetropolitan Saint Louis Psychiatric [id number] Miscellaneous Notes* Telephone Encounter - GAMAL Thrasher - 10/22/2023 5:35 PM EDT PAP mask and supplies order with supportive documentation faxed to [facility]. [facility] encounter Note* Telephone Encounter - GAMAL Thrasher - 10/22/2023 5:35 PM EDT PAP mask and supplies order with supportive documentation [facility] to [facility] History of Present illness Narrative* Ele Booth RN - 10/08/2023 2:59 PM EDT Discharge Criteria Inpatients must meet Criteria 1 through 7. All other patients are either YES or N/A. If a NO is chosen then Anesthesia or Surgeon must be notified. 1. Minimum 30 minutes after last dose of sedative medication. Yes 2. Systolic BP between 90 - 160. Diastolic BP between 60 - 90. Yes 3. Pulse between 60 - 120 Yes 4. Respirations between 8 - 25. Yes 5. SpO2 92% - 100%. Yes 6. Able to cough and swallow or return to baseline function. Yes 7. Alert and oriented or return to baseline mental status. Yes 8. Demonstrates controlled, coordinated movements, ambulates with steady gait, or return to baseline activity function. Yes 9. Minimal or no pain or nausea, or at a level tolerable and acceptable to patient. Yes 10. Takes and retains oral fluids as allowed. Yes 11. Procedural / perioperative site stable. Minimal or no bleeding. Yes 12. If GI endoscopy procedure, minimal or no abdominal distention or passing flatus. Yes 13. Written discharge instructions and emergency telephone number provided. Yes 14. Accompanied by a responsible adult. Yes * Radha Espinoza RN - 10/01/2023 10:47 AM EDT Patient states that received their colon prep instructions and home medications that are to be taken on the day of their procedure with a small sip of water only, from the physician's office. Patient had EKG done on 07/25/2023 in [place]-results are in care everywhere. documented in this encounterB[facility] Discharge instructions* Discharge Instructions* Ele Booth RN - 10/08/2023 2:22 PM EDT SAME DAY SURGERY DISCHARGE INSTRUCTIONS 1. Do not drive or operate hazardous machinery for 24 hours. 2. Do not make important personal or business decisions for 24 hours. 3. Do not drink alcoholic beverages for 24 hours. 4. Do not smoke tobacco products for 24 hours. 5. Eat light foods (Jell-O, soups, etc....) and drink plenty of fluids (water, Sprite, etc...) up to 8 glasses per day, as you can tolerate. 6. Limit your activities for 24 hours. Do not engage in heavy work until your surgeon gives you permission. 7. Call your surgeon for any questions regarding your surgery. 8. Patient should not be left alone for 12-24 hours following surgical procedure. COLONOSCOPY DISCHARGE INSTRUCTIONS: It's normal to have a feeling of fullness or mild cramping in your abdomen afterwards due to air that is put into your bowel during the procedure. Mild activities such as walking will help you pass the air. You may resume your regular diet. ENDOSCOPY DISCHARGE INSTRUCTIONS: You may have a mild sore throat; this should get better over the next day or two. Sipping warm liquids, a salt-water gargle or throat lozenges may be used. You may have some belching or a feeling of fullness in your abdomen. This is from air that was put into your stomach during the procedure. Thisshould pass in a few hours. May resume your regular diet. You will receive a letter or phone call with your test results in 2 weeks. If you have not receiveda letter or a phone call in 2 weeks please call the office for your results. CALL THE DOCTOR IF YOU HAVE: Chest pain or trouble breathing. A hoarse voice or trouble swallowing Bleeding, vomiting or spitting up of blood that is more than a few streaks or red or black stools A fever above 101F or if you have chills Pain that is worse or different than any pain you had before the procedure Nausea or vomiting that lasts for more than 2 hours. If symptoms are to severe call 911 or go to the nearest Emergency Room. Clips were placed in your colon as part of the polyp removal process; these clips are metal and caninterfere with MRI procedures; the clips will pass as part of a bowel movement after several weeks until that time you have been given an implant card stating when and where the clips are located; please present the card to radiology prior to having any MRI procedures. documented in this [facility] History of Present illness Narrative* Donna Steen APRN-PROJECT DEVELOPMENT DIRECTOR - 09/19/2023 11:45 AM EDT Video Visit via Real-time Synchronous Audiovisual Provider [facility] Jasmine [facility] [address] [place] [id number] Patient Location: Other Patient Location Plating Machine Operator: None Video Visit Consent Statement: I discussed risks, benefits, and alternatives of a real-time synchronous audiovisual consultation with the patient (and any accompanying persons) including the risks that the patient's personal health details and medical records will be discussed over real-time, synchronous, interactive video/audio/telecommunication technology, the visit will not be recorded withoutthe express consent of both the provider and the patient, and that there are some limitations compared to hzdr-mc-jssv evaluations. We elected to proceed. Jelani Freeman arrives to the [facility] for initial visit on 09/19/2023. She is a 42 y.o. female followed at the Sleep Clinic for CRIS. Sleep Questionnaire 09/19/2023 11:46 AM EDT - Filed by Patient Have you previously had a sleep study? Yes Do you have a partner (girlfriend/boyfriend, spouse, etc) ? Yes Do you or your bed partner currently notice any of the following symptoms? Excessive daytime sleepiness Yes Frequent snoring Yes Snore yourself awake from sleep Yes Witnessed apneas (holding breath during sleep) No Waking up choking, gasping or short of breath No Excessively sweating overnight Yes Waking up with dry mouth or sore throat Yes Morning headaches No Waking up to urinate at night Yes Nighttime heartburn interfering with sleep Yes Frequent disturbing dreams or nightmares Yes Sleep walking No Unusual behaviors during sleep No Injury to yourself or partner during sleep No Imagine seeing or hearing things that are not real as you fall asleep or wake up No Momentary inability to move body (paralysis) as falling askeep or waking up No Insomnia (difficulty falling asleep or staying asleep) Yes Teeth clenching/grinding Yes Waking up disoriented / confused Yes Do you currently receive medical equipment for sleep conditions? No Have you had any other treatments for sleep apnea? No How likely are you to doze off or fall asleep in the following situations, in contrast to feeling just tired? Sitting and reading moderate chance of dozing Watching TV moderate chance of dozing Sitting inactive in a public place (e.g. a theater or a meeting) slight chance of dozing As a passenger in a car for an hour without a break moderate chance of dozing Lying down to rest in the afternoon when circumstances permit high chance of dozing Sitting and talking to someone no chance of dozing Sitting quietly after a lunch without alcohol slight chance of dozing In a car, while stopped for a few minutes in traffic no chance of dozing Weekday Sleep Schedule What time do you get into bed? 10:00 PM What time do you try to go to sleep? 10:30 PM Time it takes to fall asleep (minutes) 30 What time do you wake up? 6:30 AM What time do you get out of bed? 6:45 AM Weekend Sleep Schedule What time do you get into bed? 10:00 PM What time do you try to go to sleep? 10:30 PM Time it takes to fall asleep (minutes) 30 What time do you wake up weekends? 9:30 AM What time do you get out of bed? 10:00 AM Do you watch TV, read or use phone/computer in bed? Yes Number of lggvwg-gh-bmg-night awakenings per night? 1 Cause of awakenings (if applicable): Bathroom Total average number of hours of sleep per night: 8 How many naps do you take a day and for how long? 1 on the weekends for 20 minutes to 3 hours Do you feel refreshed after your naps? Sometimes Do you do shift work or work overnights? No Family history of CRIS: brother ETOH: very rare Marijuana: none Caffeine: 2-3 per week Denies any dyspnea, fevers, chills, chest pain or hemoptysis. Would like to use machine if possible. DME: [facility] Current Outpatient Medications: cholecalciferol, vitamin D3, 2,000 units tablet, Take 1 tablet (2,000 Units total) by mouth in the morning., Disp: , Rfl: estradioL (ESTRACE) 0.5 mg tablet, Take 1 tablet (0.5 mg total) by mouth in the morning., Disp: , Rfl: FLUoxetine (PROzac) 40 mg capsule, Take 1 capsule (40 mg total) by mouth in the morning., Disp: , Rfl: tdgqan-foqurekn-ntdqwmb (CREON) 36,000-114,000- 180,000 unit capsule,delayed release(DR/EC), Take 1capsule (36,000 units of lipase total) by mouth 3 (three) times a day., Disp: , Rfl: metoprolol succinate XL (TOPROL XL) 25 mg 24 hr tablet, Take 1 tablet (25 mg total) by mouth in themorning., Disp: , Rfl: pantoprazole (PROTONIX) 40 mg EC tablet, Take 1 tablet (40 mg total) by mouth every 12 (twelve) hours., Disp: , Rfl: rosuvastatin (CRESTOR) 5 mg tablet, Take 1 tablet (5 mg total) by mouth in the morning., Disp: , Rfl: Review of Systems Constitutional: Positive for fatigue. Negative for chills and fever. Respiratory: Negative for cough, shortness of breath and wheezing. Cardiovascular: Negative for chest pain. All other systems reviewed and are negative. Allergies: Reviewed with patient. Patient has no known allergies. Family History: No family history on file. Social History: Social History Socioeconomic History Marital status: LAB RESULTS: IMAGING/PFT Patient was never admitted. MG dig jan screen BILATERAL DIGITAL SCREENING MAMMOGRAM 05/20/2014 HISTORY: Baseline screening. Family history of breast cancer in patient's mother at age 50. COMPARISON: None. FINDINGS: Scattered densities. RIGHT BREAST: No suspicious findings to indicate malignancy. LEFT BREAST: Small asymmetry in the inner left breast at mid depth seen with confidence on only the CC view. Computer-aided detection was used in the interpretation of this examination. IMPRESSION: Small asymmetry in the inner left breast at mid depth seen with confidence on only the CC view. A diagnostic study is recommended to include a spot compression CC view, a left lateral view, and possible ultrasound. BIRADS 0 - Additional imaging recommended at this time. OVERALL ASSESSMENT- NEED ADDITIONAL IMAGING EVALUATION A letter of notification will be sent to the patient regarding the results. DICTATION START: 05/20/2014 14:00 Interpreted By: JUANITO BENTON Date: 05/20/2014 14:23 BREAST ECHO LIMITED LT HISTORY: Patient is a 33-year-old female having a diagnostic evaluation for an asymmetry seen in the left breast on recent screening mammography. TECHNIQUE: A true lateral view of the left breast as well as spot compression views in the CC projection were performed. COMPARISON: Recent screening mammography performed 05/20/2014. FINDINGS: DIAGNOSTIC MAMMOGRAPHY: On the spot compression views there is persistence of an oval density. There is no associated architectural distortion or suspicious clusters of microcalcifications. This is not definitively demonstrated on the true lateral view. FOCUSED SONOGRAPHY: Sonographic evaluation of the medial left breast demonstrates a heterogeneous primarily anechoic focus at the 11 o'clock position. This has circumscribed borders and may represent a cyst, although appears to contain internal debris or septations and may be complex. Overall this region measures 0.9 x 0.5 x 0.5 cm. IMPRESSION: Heterogeneous primarily anechoic focus at the 11 o'clock position within the left breast that may represent a complex cyst, although a 6-month follow-up evaluation is recommended with diagnostic mammography of the left breast and focused sonography to ensure stability. BIRADS 3 - Findings are probably benign. A short interval followup is recommended in 6 months. OVERALL ASSESSMENT- PROBABLY BENIGN A letter of notification will be sent to the patient regarding the results. DICTATION START: 06/13/2014 10:26 Interpreted By: SHEILA MCINTYRE Date: 06/13/2014 11:03 MG digital unilat HISTORY: Patient is a 33-year-old female having a diagnostic evaluation for an asymmetry seen in the left breast on recent screening mammography. TECHNIQUE: A true lateral view of the left breast as well as spot compression views in the CC projection were performed. COMPARISON: Recent screening mammography performed 05/20/2014. FINDINGS: DIAGNOSTIC MAMMOGRAPHY: On the spot compression views there is persistence of an oval density. There is no associated architectural distortion or suspicious clusters of microcalcifications. This is not definitively demonstrated on the true lateral view. FOCUSED SONOGRAPHY: Sonographic evaluation of the medial left breast demonstrates a heterogeneous primarily anechoic focus at the 11 o'clock position. This has circumscribed borders and may represent a cyst, although appears to contain internal debris or septations and may be complex. Overall this region measures 0.9 x 0.5 x 0.5 cm. IMPRESSION: Heterogeneous primarily anechoic focus at the 11 o'clock position within the left breast that may represent a complex cyst, although a 6-month follow-up evaluation is recommended with diagnostic mammography of the left breast and focused sonography to ensure stability. BIRADS 3 - Findings are probably benign. A short interval followup is recommended in 6 months. OVERALL ASSESSMENT- PROBABLY BENIGN A letter of notification will be sent to the patient regarding the results. DICTATION START: 06/13/2014 10:26 Interpreted By: SHEILA MCINTYRE Date: 06/13/2014 11:03 BREAST ECHO LIMITED LT LEFT BREAST ULTRASOUND 12/12/2014 HISTORY: Six-month followup of probably benign cyst in the left breast. COMPARISON: 06/13/2014. FINDINGS: Focused high-resolution real-time ultrasound in the 11 o'clock position of the right breast was performed by the technologist. There is a 0.6 x 0.3 x 0.4 cm predominantly anechoic cyst, which may contain a small internal septation. This is unchanged. No suspicious sonographic features to indicate malignancy. IMPRESSION: Unchanged 0.6 cm mildly complicated cyst in the 11 o'clock position of the left breast. A six-month followup is recommended at which time standard bilateral CC and MLO views of each breast are recommended. BI-RADS Category 3: Probably benign. DICTATION START: 12/12/2014 15:49 Interpreted By: JUANITO BENTON Date: 12/12/2014 16:25 No results found. Sleep Data: Solo Sleepiness Scale Sitting and Reading: (!) Moderate Chance Watching TV: (!) Moderate Chance Sitting inactive in a public place (theater, meeting): Slight Chance As a passenger in a car for an hour without a break: (!) Moderate Chance Lying down in the afternoon to rest: (!) High Chance Sitting and talking to someone: Never Sitting quietly after lunch (without alcohol): Slight Chance In a car, while stopped for a few minutes in traffic: Never Total: 11 06/20/23 HST: CHUCK = 7.9 Min SpO2 = 90% APAP 5-20 cm H20 pressure DME:MSC Impression: Diagnoses and all orders for this visit: CRIS (obstructive sleep apnea) - AUTO PAP: 5-20 Sleep apnea, unspecified type - Ambulatory referral to [facility] Sleep Medicine CPAP use counseling Class 2 obesity with body mass index (BMI) of 36.0 to 36.9 in adult, unspecified obesity type, unspecified whether serious comorbidity present CRIS Fatigue Snoring HTN Depression Plan Discussed diagnosis, its evaluation, treatment and usual course. All questions answered. Educational material distributed. Orders Placed This Encounter Procedures AUTO PAP: 5-20 Scheduling Instructions: Length of Need: 12 months -Full Face Interface1/3mos -Full Face Cushion 1/mo -Nasal Cushion 2/mo, -Nasal Mask 1/3mos -Pillows 2/mo -Htd Tubing 1/3mos -Headgear 1/6mos -Chin Strap1/6mos -Non-Disposable Filter1/6mos -Disposable Filter2/mo -Water Chamber1/6mos -Std Tubing 1/3 mos -Add heat humidification with tubing Order Specific Question: Please specify Answer: AUTO PAP: 5-20 Order Specific Question: The face to face evaluation was performed on Answer: 09/29/2023 No orders of the defined types were placed in this encounter. She is to start APAP 5-20 cm H20 on a nightly basis. New mask and supplies as needed. Diet and exercise were discussed in detail. Any age appropriate or routine screening per PCP. Follow up in 3 Months time. If her condition should change prior to this she is encouraged to give our office a call. Discussed triggers to call back before follow up including weight change > 10%, major medical issues including stroke, arrhythmia or heart attack, or significant change in symptoms. This encounter was completed completely by video visit. The patient was made aware that this may leo billable service and consented to the video visit. This call lasted approximately 10 minute and more than 50% of the time was spent in direct counseling. EDUCATION: Health risks associated with untreated CRIS were discussed (cardiopulmonary, cerebrovascular, and anesthesia/sedative-related). Risks associated with excessive daytime sleepiness, particularly while driving/operating machinery were discussed. The patient was instructed to avoid such activities if feeling sleepy, and to stop the activity if sleepiness occurs (nail puller at the next safe opportunity if driving). Discussed triggers to call back before next office visit including weight change > 10%, major medical issues including stroke, arrhythmia or heart attack, or significant change in symptoms. This note is dictated with the use of M*Modal.Please note that this dictation was completed with computer voice recognition software. Quite often unanticipated grammatical, syntax, homophones, and other interpretive errors are inadvertently transcribed by the computer software. Please disregard these errors. Please excuse any errors that have escaped final proofreading. TED Paul 09/29/23 0847 documented in this encounterVerm[facility] HospitalA[facility]04-26-[facility]24 Instructions* Patient Instructions* TED Paul - 09/19/2023 11:45 AM EDT If you re looking for general health and wellness resources, please visit [email or web address] documented in this encounterT[facility]03-18-2024 Miscellaneous Notes* Telephone Encounter - Terri Beverly - 08/11/2023 9:30 AM EDT PT is in need of a 30 min spot not a 15 min spot / PT was scheduled for a Video Visit with SAURAV documented in this encounterT[facility]edo Hospital03-18-2024 Telephone encounter Note* Telephone Encounter - Terri Siria - 08/11/2023 9:30 AM EDT PT is in need of a 30 min spot not a 15 min spot / PT was scheduled for a Video Visit with SAURAV [facility]02-21-2024 Miscellaneous Notes* Telephone Encounter - Rachel Kingsley CNA - 07/16/2023 12:37 PM EST Left voicemail to change to video visit with SAURAV on 08/13. Sent letter documented in this [facility]02-21-2024 Telephone encounter Note* Telephone Encounter - Rachel Kingsley CNA - 07/16/2023 12:37 PM EST Left voicemail to change to video visit with SAURAV on 08/13. Sent letter [facility]02-01-[facility] History of Present illness Narrative* Beckie Sutton LPN - 06/26/2023 11:00 AM EST Reason for Appointment: Patient ID: Jelani Freeman is a 42 y.o. female who presents for Eval for ovarian cyst Patient presents today for Consult appointment. Current Medications: has a current medication list which includes the following prescription(s): estradiol-norethindrone, aspirin, cholecalciferol, fluoxetine, metoprolol succinate xl, creon, pantoprazole, and rosuvastatin. Medical History: Active Ambulatory Problems Diagnosis Date Noted Depression ([facility]) 11/12/2022 Difficulty walking 11/12/2022 Dysphagia 11/12/2022 Hypercholesteremia ([facility]) 11/12/2022 Hypertension ([facility]) 11/12/2022 Obesity 11/12/2022 Seasonal allergic rhinitis 11/12/2022 Unrefreshed by sleep 11/12/2022 Pancreatic insufficiency ([facility]) 01/20/2023 Resolved Ambulatory Problems Diagnosis Date Noted [...] nursing note reviewed. Exam conducted with a supervisor asbestos textile present. Vitals: Estimated body mass index is 32.14 kg/m as calculated from the following: Height as of 06/04/23: 5' 10 . Weight as of 06/04/23: 224 lb. BP: No LMP recorded. Patient is perimenopausal. Assessment/Plan Encounter Diagnosis Name Primary? Cyst of ovary, unspecified laterality Patient presents today to discuss ovarian cyst that patient voiced was very painful last week. Willorder pelvic US for patient to have done. Patient to setup annual in 8 weeks and could then review US results at that time. PVU Documented by Beckie Sutton LPN on behalf of: Rj Shah DO documented in this encounterMetropolitan Saint Louis Psychiatric [id number] Miscellaneous Notes* Telephone Encounter - Trina Long - 06/05/2023 12:25 PM EST 06/05 Received 06/04 order Called pt to schedule H[facility] sched at [facility] on 06/20 Confirmation [facility]. Tee for approval [facility] [employer] HST order and 06/04 Darrian notes in MM * Telephone Encounter - Sindi Tee MD - 06/05/2023 12:25 PM EST Ok for HST. Ordered as referral. * Telephone Encounter - Arlet Bowman - 06/05/2023 12:25 PM EST AUTH STARTED HST/NPR MMO primary documented in this encounterToledo Hospital01-11-2024 Telephone encounter Note* Telephone Encounter - Trina Long - 06/05/2023 12:25 PM EST 06/05 Received 06/04 order Called pt to schedule HST sched at [facility] on 06/20 Confirmation emailed [facility] Dr. Tee for approval [facility] [employer] HST order and 06/04 Darrian notes in MM [facility] [employer]01-11-2024 Telephone encounter Note* Telephone Encounter - Sindi Tee MD - 06/05/2023 12:25 PM EST Ok for HST. Ordered as referral. [employer] Work Phone: [phone] Telephone encounter Note* Telephone Encounter - Arlet Bowman - 06/05/2023 12:25 PM EST AUTH STARTED HST/NPR MMO primary [employer]01-27-2023 Evaluation note* Encounter Date Diagnosis Assessment Notes Treatment Notes Treatment Clinical Notes May, GERD (gastroesophageal reflux di sease) (ICD-10 - K21.9) [facility] Other 01-21-2023 Evaluation note* Encounter Date Diagnosis Assessment Notes Treatment Notes Treatment Clinical Notes May, Dysuria (ICD-10 - R30.0) May,Urinary tract infection, site not specified (ICD-10 - N39.0)Urinary tract infection (UTI) home care material was printed Drink plenty fluids, get plenty of rest. Take the Macrobid and Pyridium as prescribed until gone. Follow-up with your family physician if no improvement in 2 to 3 days. Take Tylenol or Motrin as needed for aches pains or fevers. May,Hematuria, unspecified (ICD-10 - R31.9) [facility] Other 01-03-2023 Evaluation note* Encounter Date Diagnosis Assessment Notes Treatment Notes Treatment Clinical Notes May, Contact with and (urias spected) exposure to covid-19 (ICD-10 - Z20.822) [facility] Other 12-21-2022 Evaluation note* Encounter Date Diagnosis Assessment Notes Treatment Notes Treatment Clinical Notes Apr, Dysphagia (ICD-10 - R13.10) [facility] Other 12-13-2022 Procedure [facility]12-09-2022 Evaluation note* Encounter Date Diagnosis Assessment Notes Treatment Notes Treatment Clinical Notes Apr, Contact with and (urias spected) exposure to other viral communicable diseases (ICD-10 - Z20.828) [facility] Other 11-29-2022 Evaluation note* Encounter Date Diagnosis Assessment Notes Treatment Notes Treatment Clinical Notes Mar, Difficulty in swallowing (ICD-10 - R13.10) [facility] Other 09-07-2022 Evaluation note* Encounter Date Diagnosis Assessment Notes Treatment Notes Treatment Clinical Notes Jan, GERD (gastroesophageal reflux di sease) (ICD-10 - K21.9) [facility] Other 08-15-2022 Evaluation note* Encounter Date Diagnosis Assessment Notes Treatment Notes Treatment Clinical Notes Dec, Contact with and (urias spected) exposure to other viral communicable diseases (ICD-10 - Z20.828) [facility] Other 08-07-2022 Evaluation note* Encounter Date Diagnosis Assessment Notes Treatment Notes Treatment Clinical Notes Dec, Exposure to COVID-19 virus (ICD- 10 - Z20.822) [facility] Other 02-17-2022 Evaluation note* Encounter Date Diagnosis Assessment Notes Treatment Notes Treatment Clinical Notes Jun, Contact with and (urias spected) exposure to other viral communicable diseases (ICD-10 - Z20.828) Jun,ther Additional time spent conducting pre-visit phone call, screening for symptoms, instructions on social distancing, application and removal of PPE, and cleaning of examination room, equipment and supplies was preformed. Patient education given for testing methodology and results. Patient care instructions given in writting by [facility] document. [facility] Other 11-23-2021 Evaluation note* Encounter Date Diagnosis Assessment Notes Treatment Notes Treatment Clinical Notes Mar, Contact with and (urias spected) exposure to other viral communicable diseases (ICD-10 - Z20.828) Drink plenty fluids, get plenty of rest. Notify [facility] of your family members positive Covid result. Mar,Other Additional time spent conducting pre-visit phone call, screening for symptoms, instructions on social distancing, application and removal of PPE, and cleaning of examination room, equipment and supplies was preformed. Patient education given for testing methodology and results. Patient care instructions given in writting by [facility] document. [facility] Other 10-12-2021 Evaluation note* Encounter Date Diagnosis Assessment Notes Treatment Notes Treatment Clinical Notes Feb, Dysuria (ICD-10 - R30.0) Feb,cute cystitis with hematuria (ICD-10 - N30.01) Drink plenty fluids, get plenty of rest. Take the Macrobid as prescribed until gone. Take the Pyridium as prescribed until gone. Follow-up with your family physician if no improvement in 2 to 3 days [facility] Other 09-22-2021 Evaluation note* Encounter Date Diagnosis Assessment Notes Treatment Notes Treatment Clinical Notes Jan, Contact with and (urias spected) exposure to other viral communicable diseases (ICD-10 - Z20.828) Jan,Viral upper respiratory illness (ICD-10 - J06.9) Viral upper respiratory infection: adult home care material was printed. Drink plenty fluids, get plenty of rest. Continue your allergy medications as usual. Tylenol or Motrin for aches pains or fevers. Follow-up with your family physician if no improvement in 2 to 3 days Jan,Other Additional time spent conducting pre-visit phone call, screening for symptoms, instructions on social distancing, application and removal of PPE, and cleaning of examination room, equipment and supplies was preformed. Patient education given for testing methodology and results. Patient care instructions given in writting by [facility] document. Additional time spent conducting pre-visit phone call, screening for symptoms, instructions on social distancing, application and removal of PPE, and cleaning of examination room, equipment and supplies was preformed. Patient education given for testing methodology and results. Patient care instructions given in writting by [facility] document. [employer] Other Evaluation + Plan note Future Appointments Appointment Date:10/19/2024 11:00:00 AM Scheduled Provider:Maria Esther JUARES MD Location[facility] Bernadine Appointment Type:URO Procedure 15 min [facility] evaluation + Plan note Future Appointments Appointment Date:10/19/2024 11:00:00 AM Scheduled Provider:Maria Esther [facility]ES [facility] Procedure 15 min Diagnostic Tests Pending * Urine Cytology ([facility]) 10/04/24 [facility] evaluation noteNo assessment information available [facility] Work Phone: Evaluespjy noteNo InformationNort Secure-24 Other Evaluation note* Diagnosis Chronic GERD documented in this encounter [facility] SurIDxaluation note* Diagnosis Cyst of ovary, unspecified laterality Pelvic pain in female Unspecified symptom associated with female genital organs documented in this encounter [facility] HealthcareEvaluation note* Diagnosis Screening for colon cancer Special screening for malignant neoplasms, colon Dysphagia, unspecified type documented in this encounter [facility] SurIDxaluation note* Diagnosis Arthralgia, unspecified joint- Primary Night sweats Generalized hyperhidrosis Rotator cuff arthropathy of both shoulders Chronic neck pain Cervicalgia Bilateral hip pain Pain in joint, pelvic region and thigh Sacroiliitis (CMS/HCC) Sacroiliitis, not elsewhere classified Lumbosacral strain, initial encounter Class 1 obesity due to excess calories with serious comorbidity and body mass index (BMI) of 31.0 to 31.9 in adult Primary hypertension (CMS/HCC) Unspecified essential hypertension Gastroesophageal reflux disease, unspecified whether esophagitis present Hypercholesteremia (CMS/HCC) Pure hypercholesterolemia Chronic bilateral low back pain without sciatica documented in this encounter [facility] Healthcare[facility] note* Diagnosis Gastroenteritis- Primary Other and unspecified noninfectious gastroenteritis and colitis Gastroesophageal reflux disease without esophagitis Esophageal reflux Primary hypertension (CMS/HCC) Unspecified essential hypertension Chronic diarrhea Diarrhea Class 1 obesity due to excess calories with serious comorbidity and body mass index (BMI) of 31.0 to 31.9 in adult documented in this encounter [facility] HealthcareEvaluation note* Diagnosis CRIS (obstructive sleep apnea)- Primary Obstructive sleep apnea (adult) (pediatric) Sleep apnea, unspecified type CPAP use counseling Class 2 obesity with body mass index (BMI) of 36.0 to 36.9 in adult, unspecified obesity type, unspecified whether serious comorbidity present [facility] Sleep apnea, unspecified type [facility] Diagnosis Well woman exam with routine gynecological exam Routine gynecological examination Encounter for screening mammogram for malignant neoplasm of breast H/O: hysterectomy Acquired absence of both cervix and uterus Other microscopic hematuria documented in this encounter [facility] HealthcareEvaluation note* Diagnosis Plantar fasciitis, left- Primary Inflammatory heel pain, left Difficulty walking Difficulty in walking Calcaneal spur, left documented in this encounter [facility] HealthcareEvaluation note* Diagnosis Primary hypertension- Primary Unspecified essential hypertension documented in this encounter [facility] HealthcareEvaluation note* Diagnosis CRIS (obstructive sleep apnea)- Primary Obstructive sleep apnea (adult) (pediatric) CPAP use counseling Obesity (BMI 30-39.9) BMI 37.0-37.9, adult [facility] Author Malcolm Iglesias [facility] May 07, 2022 2:49pmNote Date/TimeDece2021 2:49pm[place] [address] Gastroenterology H&P Signed Patient: Jelani Freeman MR#: [id number] : 1980 Acct:[id number] Age/Sex: 41 / F Adm Date: 2 Loc: Room: Type: [facility] Attending Dr: Malcolm Iglesias MD Copies to: MD Malcolm Callaway MD~ Date of Service: 05/07/2022 HISTORY & PHYSICAL: Patient's history with special attention to the cardiovascular, pulmonary systems and the current problem was reviewed with the patient immediately prior to the procedure. Present medications and doses reviewed in the EMR. Allergies and pertinent laboratory tests were also re viewedat this time in the EMR. The physical [...] MD Documented By: Malcolm Iglesias MD 05/07/22 4003 Signed By: <Electronically signed by Malcolm Iglesias MD> 05/07/22 4299 [facility] Work Phone: History general Narrative - Reported* Type Description Date Medical History GERD Medical HistorydepressionSurgical [id number] HistoryPartial HysterectomyHospitalization HistoryChild [id number] History Hysterectomy [employer] [facility] Other History general Narrative - Reported* Type Description Date Medical History GERD Medical HistorydepressionMedical HistoryHypertensionSurgical HistoryD&C2002 Surgical HistoryPartial HysterectomyHospitalization HistoryChild x2 Hospitalization HistoryHysterectomy [facility] Other Hospital course Narrative No data available for this section [facility] Hospital Discharge instructions Additional Instructions DISCHARGE INSTRUCTIONS [...] NOT operate machinery such as power tools, PricePandan mowers, snow blowers, sewing machines, etc. for [...] Follow up with PCP. 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[employer] Other Reason for visit Narrative* Consultation (Routine) - Pending ReviewSpecialtyDiagnoses / ProceduresReferred By ContactReferred To ContactSleep Medicine / Pulmonary Medicine Diagnoses Sleep apnea, unspecified type Agapito Colmenares MD [address] [place] [address] Zz Do Not Use [facility]cj Pulm Sleep [facility] [address] [address] Referral IDStatusReasonStart DateExpiration DateVisits RequestedVisits [id number] Review Specialty Services Required [facility] [employer] Chief Complaint and Reason for Visit Chief Complaint pillars Pillars Chief Complaint R13.10 Difficulty Swallowing Chief Complaint R13.10 Difficulty Swallowing Dysphagia Chief Complaint R13.10 Difficulty Swallowing Dysphagia Screening Chief Complaint left shoulder pain Chief Complaint Pillars left shoulder pain Family History Relationship Condition Age at Onset Recorded Date/T alecia Not Specified Malignant neoplasm of breast Unknown grandparentMalignant neoplasm of lungUnknown Advance Directives Advance Directive Response Recorded Date/ Time Advance Directives No November 25 10:57am Advance Directive Response Recorded Date/ Time Advance Directives No November 25 9:57am Summary Purpose Additional Source Comments REASON FOR VISIT (unrecogniz ed section and content) ReasonCommentsEval for ovarian cystSpecialtyDiagnoses / ProceduresReferred By ContactReferred To Contact Diagnoses Screening for colon cancer Dysphagia, unspecified type Screening for colon cancer [Z12.11] Dysphagia, unspecified type [R13.10] Procedures AK COLON CA SCRN NOT HI RSK IND AK ESOPHAGOGASTRODUODENOSCOPY TRANSORAL DIAGNOSTIC AK EGD TRANSORAL BIOPSY SINGLE/MULTIPLE AK EGD BALLOON DILATION ESOPHAGUS <30 MM DIAM AK COLONOSCOPY W/BIOPSY SINGLE/MULTIPLE AK COLSC FLX W/RMVL OF TUMOR POLYP LESION SNARE TQ AK COLONOSCOPY W/BIOPSY SINGLE/MULTIPLE COLORECTAL CANCER SCREENING, NOT HIGH RISK ESOPHAGOGASTRODUODENOSCOPY Natasha Johnson MD [address] [place] [address] [facility] [address] [place] [address] Referral IDStatusReasonStart DateExpiration DateVisits RequestedVisits [id number] PainPatient is here for right shoulder pain. Patient states that she has been having issues with it fora while now. She did physical therapy a while back for her shoulder. She says that the pain feels different this time.Hip PainPatient is having bilateral hip pain. Patient reports that she has been having the pain for about ayear now. She say that it hurts to walk for long periods of time. Patient has been seeing a chiropractor, but not as often as she should.ReasonCommentsFollow-upPatient is here for a follow up for being off work for being sick. Patient reports that she went towork on Friday, woke up Friday night throwing up and fever. Patient states that she still wasn't feeling well Friday and Friday. Patient thinks that she had the norvovirus and was concerned that she was contagious and stayed home too. Patient is going to need paper work filled out for her employer.ReasonOnset DateCommentsSleep Lab06/05/2023HSTSpecialtyDiagnoses / ProceduresReferred By ContactReferred To Contact Diagnoses Sleep apnea, unspecified type Procedures Home sleep study Agapito Colmenares MD [address] [place] [address] [facility] [address] [place] [address] Phone: [phone] Referral IDStatusReasonStart DateExpiration DateVisits RequestedVisits [id number] ExamReason Onset DateCommentsAdvice Only11/22/2024Rx RequestReasonCommentsPlantar Fasciitis Jelani Freeman 44yo patient was last seen 06/2022, relates her Plantar fasciitis has flared up. Patientis leaving on vacation/mission trip 11/28/2024. Left foot arch to heel pain. Patient is wearing powerstep with her Asic shoes. Patient stretching, tylenol or iibuprofen PRN.SS8.5.ReasonCommentsHypertensionBlood pressure has been elevated last night it was 180/116. She took her blood pressure with her machine after I took it it was 164/104ReasonCommentsSleep ApneaDL-ResmedDME: [facility] Care Teams (unrecognized sec tion and content) Team Status: Inactive Member Role Status Dates Agapito Colmenares MD Primary Care Provider Active Surinder Del Castillo DO CHCAttending ProviderActive Team Status: Active Member Role Status Dates Agapito Colmenares MD Primary Care Provider Active Team Status: Inactive Member Role Status Dates Agapito Colmenares MD Primary Care Provider Active Malcolm Iglesias MDAttchristina ProviderActive Team Status: Inactive Member Role Status Dates Agapito Colmenares MD Primary Care Provider Active Hafsa Ivey [employer] INTERNSH[employer]-CAttending ProviderActive Team Status: Inactive Member Role Status Dates Agapito Colmenares MD Primary Care Provider Active Hebert Moody ProviderActive Team Status: Inactive Member Role Status Dates Agapito Colmenares MD Primary Care Provider Active Referral SelfAttending ProviderActive Team Status: Inactive Member Role Status Dates Agapito Colmenares MD Primary Care Provider, Attending Garth ruiz Active Team MemberRelationshipSpecialtyStart [place] [address] [place] [address] PCP - GeneralFamily Medicine06/13/23Team MemberRelationshipSpecialtyStart DateEnd Date Agapito Colmenares MD [address] [place] [id number] PCP - GeneralFamily Medicine11/11/22Team MemberRelationshipSpecialtyStart [place] [address] [place] [address] PCP - GeneralFamily Medicine06/13/23Team MemberRelationshipSpecialtyStart [place] [address] [place] [address] PCP - Medical [employer]02/04/2312 [place] [address] [place] [address] PCP - GeneralFamily Lwukbmrq02/13/24Team MemberRelationshipSpecialtyStart [place] [address] [place] [address] PCP - Medical [employer]02/04/2312 [place] [address] [place] [address] PCP - GeneralFamily Rqdippaw58/13/24Team MemberRelationshipSpecialtyStart [place] [address] [place] [address] PCP - Medical [employer]02/04/2312 [place] [address] [place] [address] PCP - GeneralFamily Tnyvmtbp09/13/24Team MemberRelationshipSpecialtyStart [place] [address] [place] [address] PCP - Medical [employer]02/04/2312 [place] [address] [place] [address] PCP - GeneralFamily Svxuuxfg40/13/24Team MemberRelationshipSpecialtyStart [place] [address] [place] [address] PCP - GeneralFamily Medicine06/18/23Team MemberRelationshipSpecialtyStart [place] [address] [place] [address] PCP - GeneralFamily Medicine06/18/23Team MemberRelationshipSpecialtyStart Date[place] [address] [place] [address] PCP - GeneralFamily Medicine06/18/23Team MemberRelationshipSpecialtyStart Date[place] [address] [place] [address] PCP - Medical [employer]02/04/2312 [place] [address] [place] [address] [facility] - [facility] Zusipfvg53/13/24Team MemberRelationshipSpecialtyStart [place] [address] [place] [address] PCP - Medical [employer]02/04/2312 [place] [address] [place] [address] [facility] - [facility] Rqrkmagz52/13/24Team MemberRelationshipSpecialtyStart [place] [address] [place] [address] PCP - Medical [employer]02/04/2312 [place] [address] [place] [address] [facility] Okotxmhb48/13/24Team MemberRelationshipSpecialtyStart [place] [address] [place] [address] PCP - Medical [employer]02/04/2312 [place] [address] [place] [address] [facility] - [facility] Dxnwjhla59/13/24Team MemberRelationshipSpecialtyStart [place] [address] [place] [address] PCP - Medical [employer]02/04/2312 [place] [address] [facility] [place] [address] PCP - GeneralFamily Zpubljbd61/13/24Team MemberRelationshipSpecialtyStart [place] [address] [place] [address] PCP - Medical [employer]02/04/2312 [place] [address] [place] [address] PCP - GeneralFamily Xhjxdqjs11/13/24Team MemberRelationshipSpecialtyStart [place] [address] [place] [address] PCP - GeneralFamily Medicine06/18/23Team MemberRelationshipSpecialtyStart [place] [address] [place] [address] PCP - GeneralFamily Medicine06/18/23 Goals (unrecognized section and content) Goals may be documented in a n alternate section INFORMATION SOURCE (unrecogn ized section and content) DATE CREATED AUTHOR 02/06/[address] [facility] DATE CREATED AUTHOR AUTHOR'S ORGANIZ ATION 06/14/2023 [facility] DATE CREATED AUTHOR AUTHOR'S ORGANIZ ATION 08/05/2023 [facility] DATE CREATED AUTHOR AUTHOR'S ORGANIZ ATION 09/21/2023 [facility] DATE CREATED AUTHOR AUTHOR'S ORGANIZ ATION 10/10/2023 [facility] DATE CREATED AUTHOR AUTHOR'S ORGANIZ ATION 05/15/2024 [facility] DATE CREATED AUTHOR AUTHOR'S ORGANIZ ATION 07/10/[address] [facility] DATE CREATED AUTHOR AUTHOR'S ORGANIZ ATION 09/21/2024 [facility] DATE CREATED AUTHOR AUTHOR'S ORGANIZ ATION 10/22/2024 [facility] DATE CREATED AUTHOR AUTHOR'S ORGANIZ ATION 11/05/2024 [facility] DATE CREATED AUTHOR AUTHOR'S ORGANIZ ATION 02/26/2025 [facility] DATE CREATED AUTHOR AUTHOR'S ORGANIZ ATION 02/28/2025 [facility] Continuous Active and Recently Administ ered Medications (unrecognized section and content) Medication Order/ lactated ringers IV soln infusion IntraVENous, at 100 mL/hr, CONTINUOUS, Starting on Fri10/08/23 at 1245, Pre-op (day of surgery) * 1225 (New Bag - Provider: Radha Oates RN) * 1316 (NoRateChange - Provider: Marquise Jordan APRN - EMELI) * 1406 (New Bag - Provider: ALLEN Casillas CRNA) * 1459 (Stopped - Provider: Ele Booth RN) FOR RECORDS PERTAINING TO PATIENTS WHO ARE [...] BE BASED ON THE PRIMARY CLINICAL RECORDS. [facility]. provides no warranty or guarantee of the accuracy or completeness of information in this document.
--- NOTE | 2025-03-31 08:34 | PM.CN ---
Consult Note: HPI Data of Consult Patient: new to practice Consult date: 03/31/25 Requesting Physician: Risa Babin NP Primary Care Provider: ELIN COLMENARES Consult Narrative Reason for consult: bilateral hip and thigh pain Narrative: Kathy Freeman a pleasant 44 year old female presents for evaluation and management of chronic bilateral hip pain secondary to greater trochanteric bursitis. she has failed > 6 weeks of PT and aquatherapy, HEP, heat, ice, tylenol, NSAIDs. failed methocarbamol as well with heart palpitations. notes significant relief from bilateral GTB injections, prior injection done 11/24/24 provided at least 50% improvement greater than 3 months. pain today 3/10 stabbing increasing to 6/10 with standing, walking, lying on her sides, walking, bending, sleep. notes mild improvement with ice and sitting. currently utilizing tylenol prn with minimal relief. does not take additional nsaids due to HTN. cc:: CC: Risa Babin NP Review of Systems ROS Musculoskeletal Reports: extremity pain; Denies: back pain PFSH PFSH Medical History Swallowing study performed ?Z13.810 - Encounter for screening for upper gastrointestinal disorder (ICD-10) COVID-19 ?U07.1 - COVID-19 (ICD-10) PONV (postoperative nausea and vomiting) ?R11.2 - Nausea with vomiting, unspecified (ICD-10) ?Z98.890 - Other specified postprocedural states (ICD-10) Menopausal state ?N95.1 - Menopausal and female climacteric states (ICD-10) Fatigue ?R53.83 - Other fatigue (ICD-10) CRIS (obstructive sleep apnea) ?G47.33 - Obstructive sleep apnea (adult) (pediatric) (ICD-10) Irritable bowel ?K58.9 - Irritable bowel syndrome without diarrhea (ICD-10) Seasonal allergies ?J30.2 - Other seasonal allergic rhinitis (ICD-10) Hypertension ?I10 - Essential (primary) hypertension (ICD-10) Hypercholesteremia ?E78.00 - Pure hypercholesterolemia, unspecified (ICD-10) Dysphagia ?R13.10 - Dysphagia, unspecified (ICD-10) Difficulty walking ?R26.2 - Difficulty in walking, not elsewhere classified (ICD-10) Depression ?F32.A - Depression, unspecified (ICD-10) Surgical History H/O colonoscopy ?Z98.890 - Other specified postprocedural states (ICD-10) H/O cystoscopy ?Z98.890 - Other specified postprocedural states (ICD-10) H/O total hysterectomy ?Z90.710 - Acquired absence of both cervix and uterus (ICD-10) H/O dilation and curettage ?Z98.890 - Other specified postprocedural states (ICD-10) Family History Other Family history of CHF (congestive heart failure) Family history of cancer Social History Within the past year, how often did you have a drink containing alcohol: monthly or less Within the past year, how often did you have six or more drinks on one occasion: never Smoking status: Never smoker Second hand tobacco smoke exposure: No Non-prescribed substance use: denies use Previous occupational history: [employer] Known occupational exposures/hazards: No Highest level of school completed/degree received: Associate degree: academic program Meds Home Medications and Allergies Home Medications ?Medication ?Instructions ?Recorded ?Confirmed ?Type aspirin 81 mg capsule 81 mg PO DAILY 07/25/23 07/25/23 History estradiol 1 mg tablet 0.5 mg PO DAILY 07/25/23 07/25/23 History famotidine 20 mg tablet 20 mg PO DAILY 07/25/23 07/25/23 History fluoxetine 20 mg capsule 20 mg PO BID 07/25/23 07/25/23 History metoprolol succinate 25 mg 25 mg PO DAILY 07/25/23 08/01/23 History tablet,extended release 24 hr pantoprazole 40 mg tablet,delayed 40 mg PO Q12H 07/25/23 08/01/23 History release rosuvastatin 5 mg tablet 5 mg PO DAILY 07/25/23 07/25/23 History oxycodone-acetaminophen 5 mg-325 1 tab PO Q6H PRN pain 4 days #16 08/01/23 Rx mg tablet (Percocet) tabs Allergies Allergy/AdvReac Type Severity Reaction Status Date / Time No Known Allergies Allergy Verified 07/25/23 11:46 adhesive tape AdvReac Intermediate Redness of Verified 07/25/23 11:46 Skin Exam Constitutional Documenting provider has reviewed patient's vital signs: yes Common normals: no apparent distress, oriented x3 and alert General appearance: cooperative HENMT Common normals: normocephalic, hearing grossly normal bilaterally and moist oral mucous membranes Head and scalp: normocephalic Eye Common normals: PERRL Pupil: PERRL Neck & C-Spine Common normals: full ROM General: normal visual inspection Chest Common normals: inspection of chest normal Respiratory Common normals: normal respiratory effort, no retractions and no use of accessory muscles Back & Pelvis Lumbar spine/lower back: pain with ROM, lumbar spinal tenderness and straight leg raise negative bilaterally Other: moderate pain noted over bilateral GTB, tender to touch increased pain over IT band as well with palpation and external rotation of bilateral hips Neuro Common normals: oriented x3 Sensorium/orientation: alert Psych Common normals: mental status grossly normal, thought process normal, cooperative, affect normal, speech normal and activity/motor behavior normal Speech: normal speech Thought process: normal thought process Results Additional Findings Additional findings: If on a controlled substance or opioids, I have checked an [place]AR[place] report on this patient and there are no aberrancies noted in the prescribing history.??If on a controlled substance or opioid a drug screen was completed and reviewed within the last year, and if there has not been a drug screen completed we ordered one today to monitor higher risk, state monitored pain medication use. As part of providing excellent, safe, comprehensive care, the following was completed at our patient's visit: 1. A medication reconciliation and review to ensure accurate knowledge of current/active medications, including asking our patients to inform us about any dmcf-sdb-biazjtq medications or herbal remedies/nutritional supplements/alternative remedies. 2. A review to specifically ensure our patients have had annual screening for screening for depression, screening for tobacco use, and screening for unhealthy alcohol use. For concerning screenings had a discussion with the patient, provided patient education, and recommended follow-up with primary care provider when appropriate. If patient noted with a risk of falling, they received education on strength, gait, and balance training to prevent future risk of falling. Portions of this note may have been carried over from the previous visit and updated as appropriate. Please note this office utilizes paper charting in addition to the electronic medical record. A list of current medications, vitals, and PMH is available there as the clinical staff outside of myself do not have access to [employer] charting during the clinic day operations. As part of providing quality comprehensive care the current medications, vitals, and PMH were reviewed in the paper chart. Assessment and Plan Assessment and Plan (1) Greater trochanteric bursitis of both hips: (2) Myalgia, other site: (3) Iliotibial band tendonitis: Plan The patient has had over 3 months of moderate to severe bilateral lateral hip pain with functional impairment and inadequate response to conservative care including NSAIDS (unless there are contraindication such as concurrent blood thinners), multiple oral or topical pain medications, and home exercise program/physical therapy.? Patient has completed >6 weeks of guided home exercise program and/or formal physical therapy program without relief of their symptoms.? I have reviewed the imaging of the bilateral hips and no red flags were identified The Oswestry Disability Index was completed, and the patient scored a 22%.? bilateral gtb injection with Dr Uribe start transdermal therapeutics cream #3 bid-qid prn pain to affected areas and IT band insertion sites as instructed to patient continue HEP as tolerated f/u after injection
== END 2025-03-31 07:53 | disposition home or self-care (01) ==
LOC: PM 07:52
PROVIDERS: PCP Family Medicine; Visit Provider Nurse Practitioner
DX: M70.62 Trochanteric bursitis, left hip (principal); M70.61 Trochanteric bursitis, right hip; M79.18 Myalgia, other site; M76.30 Iliotibial band syndrome, unspecified leg
CPT/HCPCS: G0463

== ENCOUNTER 2025-04-04 12:43 | Outpatient (OUT) | payer OTHER, SELFPAY ==
--- OUTSIDE RECORDS SUMMARY | 2025-04-04 12:45 | XMS_ITS | Clinical Summary ---
Author Organization [facility] Address [id number] [place] [address] Care Team Providers Care Switch Box Installer Name Role Phone Agapito Patel MD Primary Care Provider [phone] Allergies No known active allergies Medications MedicationSigDispense QuantityRefillsLast FilledStart DateEnd DateStatus cholecalciferol, vitamin D3, 2,000 units tablet Take 1 tablet (2,000 Units total) by mouth in the morning.Active estradioL (ESTRACE) 1 mg tablet Take 1 tablet (1 mg total) by mouth daily.Active FLUoxetine (PROzac) 40 mg capsule Take 1 capsule (40 mg total) by mouth in the morning.Active ywgudr-ihdjmugy-jymakgx (CREON) 36,000-114,000- 180,000 unit capsule,delayed release(DR/EC) Take [...] Problems ProblemNoted DateDiagnosed DateOvarian mass, right02/24/2025Renal mass02/24/2025 Phpnjgvltsq33/02/2025Esophageal dwoxlvkqz59/20/2024GERD (gastroesophageal reflux disease)05/07/2024ancreatic /28/7726Zoxlerxvsp11/20/2023 Dnhjmxtuwcnb25/20/2023Seasonal allergic bimeluvf23/20/2023 Encounters DateTypeDepartmentCare QxapUydkwzuehzi51/03/2025Telephone [facility] [address] [place] [address] Armida Branham RMA 02/23/2025 3:00 PM EDTOffice Visit [facility] [address] [facility] [place] [address] Donna Steen, [employer] CRIS (obstructive sleep apnea) (Primary Dx); CPAP use counseling; Obesity (BMI 30-39.9); BMI 37.0-37.9, adult02/23/2025Travelfrom Last 3 Months Social History Tobacco UseTypesPacks/DayYears UsedDateSmoking Tobacco: NeverSmokeless Tobacco: Never Tobacco Cessation:Counseling Given: Not Answered Alcohol UseStandard Drinks/WeekCommentsNever0 (1 standard drink = 0.6 oz pure alcohol)ChildcareAnswerDate UfdnszfsBfwtqllvvQkcixxi91/12/2019EmploymentAnswer Date PcpcfhleYslfjpjddmIjhzmaq11/12/2019CommentsUnknownSex and Gender InformationValueDate RecordedSex Assigned at BirthNot on fileLegal SexFemale 12/29/2014 11:54 AM EDTGender IdentityNot on fileSexual OrientationNot on file Last Filed Vital Signs Vital SignReadingTime TakenCommentsBlood Rkckpoqm190/9210 3:01 PM EDT Jdspy0299 3:01 PM EDTTemperature--Respiratory Rate--Oxygen Loagmaykzu50% 02/23/2025 3:01 PM EDTInhaled Oxygen Concentration--Tnieym780.1 kg (231 lb 11.2 oz)02/23/2025 3:01 PM SCAFwqddb256.4 cm (5' 5.5 )02/23/2025 3:01 PM EDTBody Mass Index37.9702/23/2025 3:01 PM EDT Plan of Treatment DateTypeDepartmentCare Team (Latest Contact Info)Asnqsszlvnm93/07/2026 3:15 PM EDTOffice Visit [facility] [address] [facility] [place] [address] Donna Steen, [employer] [address] [place] [address], [place] [id number] Health MaintenanceDue DateLast DoneCommentsDepression Euspwwnal25/11/1991Adult BMI Follow Up Plan1996COVID-19 Vaccine ( season)2025 09/20/2020, 08/23/2020Influenza Knztckx43, 02/13/2021, 02/08/2020Adult BMI Clohwmggy56Tobacco Bsviphirw07/02/2026 02/24/2025Pap Smear04/804/07/2024, 01/05/2020DTaP,Tdap and Td Vaccines (3 - Td or Tdap)/10/2023, 09/11/2009 Medical Devices Not on file Insurance Care Teams Team MemberRelationshipSpecialtyStart [place] [address] [place] [address] PCP - GeneralFamily Medicine06/18/23
--- OUTSIDE RECORDS SUMMARY | 2025-04-04 12:45 | XMS_ITS | Encounter Summary ---
Author Organization [facility] Address [address] [place] [address] Care Team Providers Care Secretary Bookkeeper Name Role Phone Agapito Patel MD Unavailable [phone] Agapito Patel MD Primary Care Provider [phone] Encounter Details DateTypeDepartmentCare Team (Latest Contact Info)Jrtegpbbhjf88/01/2024Clinisync Result Encounter [facility] Unsolicited Sukhdeep Shah, DO [address] [place] [address] Social History Tobacco UseTypesPacks/DayYears UsedDateSmoking Tobacco: NeverSmokeless Tobacco: NeverAlcohol UseStandard Drinks/WeekCommentsNever0 (1 standard drink = 0.6 oz pure alcohol)Caffine intake: 1 cup a pscQ7694 Health LiteracyAnswerDate Recorded How often do you [...] relatives?Once a week02/16/2025How often do you attend islam or muslim services?More than 4 times per year02/16/2025Do you belong to any clubs or organizations such as islam groups, unions, fraClick[employer] or athletic groups, or school groups?Yes 02/16/2025How often do you attend meetings of the clubs or organizations you belong to?More than 4 times per year02/16/2025re you , , , , never , or living with a partner?Cyijtzr8102/16/2025 AUDIT-CAnswerDate RecordedQ1: How often do you have [...] very hard 02/16/2025PHQ-2AnswerDate RecordedPatient Health Questionnaire-2 Score0 02/16/2025[facility] [place] [facility] Occup[facility] Health - Occupational Stress QuestionnaireAnswerDate RecordedDo you feel stress - tense, restless, nervous, or anxious, or unable to sleep at night because yourmind is troubled all the time - these days?To some ibyqci4102/16/2025Exercise Vital SignAnswerDate Recorded On average, how many [...] were you homeless or living in a long-term (including now)?No02/16/2025CommentsNo Sex and Gender InformationValueDate RecordedSex Assigned at BirthNot on file Legal PaoBrolnw10/15/2023 8:10 PM EDTGender IdentityNot on fileSexual OrientationNot on filedocumented as of this encounter Functional Status * AUDIT-C ScoreAnswerDate of KcdiyrhonsBrrhbt939/24/2025 11:13 AM Demetrio Bonds * Q1: How often do you have a drink containing alcohol?AnswerDate of Assessment TphdglKdouj17/24/2025 11:13 AM Demetrio Bonds * Q2: How many drinks containing alcohol do you have on a typical day when you are drinking?AnswerDate of AssessmentAuthorPatient does not drink02/16/2025 11:13 AM Demetrio Bonds * Q3: How often do you have six or more drinks on one occasion?AnswerDate of CvoavgqfqpApjcefKzhza50/24/2025 11:13 AM Vamshi Generic * Over the past 2 weeks, how often have you been bothered by any of the following problems?QuestionAnswerDate of AssessmentAuthorLittle interest or pleasure in doing thingsNot at all02/16/2025 11:20 AM Mariya Hall MA Feeling down, depressed, or hopelessNot at all02/16/2025 11:20 AM Mariya Hall MAPatient Health Questionnaire-2 Uvblf164 11:20 AM Mariya Hall MA documented as of this encounter Plan of Treatment Not on file documented as of this encounter Procedures Procedure NamePriorityDate/TimeAssociated DiagnosisCommentsECG 12-LEAD07/25/2023 11:10 AM EST documented in this encounter Results * ECG 12-LEAD (07/25/2023 11:10 AM EST)Anatomical RegionLateralityModalityOther Specimen (Source)Anatomical Location / LateralityCollection Method / Volume Collection TimeReceived Time07/25/2023 11:10 AM EST Narrative 07/26/2023 7:47 AM EST [facility] ?[address] ? [place] [address] ? Electrocardiograph Report ? Signed ? Patient: JANICETAMELAKATHY Akin ? MR#: [id number] ?? : 1980 ?Acct:[id number] ?? Age/Sex: 42 / F ?ADM Date: 07/25/23 ?? Loc: PST ? Attending Dr: Sukhdeep Shah D.O. ? Ordering Physician: Sukhdeep Shah D.O. ?? Date of Service: 07/25/23 ?? Procedure(s): ECG 12 lead ?? Accession Number(s): [id number] ? cc: ?[facility] ? Test Date: ?2023-07-25 ?? Pat Name: ? KATHY FREEMAN ?Department: ? Room: ? - ?? Gender: ? Female ? Mobile Phone Salesperson: ? : ?1980 ? Requested By: SUKHDEEP ALYSSA ?? Order Number: [id number] ?Reading MD: ?? DONAL ??BALL ? Measurements ?? Intervals ?[place] ? Rate: ? 54 ? P: ?56 ?? MD: ? 163 ?QRS: ?45 ?? QRSD: ? 96 ? T: ?34 ?? QT: ? 433 ? QTc: ?413 ? Interpretive Statements ?? SINUS BRADYCARDIA ?? No previous ECG available for comparison ?? Electronically Signed On 07-26-2023 7:46:53 EST by DONAL ??ELAINE ? Dictated By: ?Donal Henry D.O. ? Signed By: ?07/26/23746 ? DD/ 1110 ? TD/TT: ? Edger Machine Setter: Procedure Note Radiology, Radiologist, MD - 07/26/[address] [address] Electrocardiograph Report Signed Patient: KATHY FREEMANR#: [id number] : 1980Acct:[id number] Age/Sex: 42 / FADM Date: 07/25/23 Loc: PST Attending Dr: Sukhdeep Shah D.O. Ordering Physician: Sukhdeep Shah D.O. Date of Service: 07/25/23 Procedure(s): ECG 12 lead Accession Number(s): [id number] cc: [facility] Test Date: 2023-07-25 Pat Name: KATHY FREEMAN Department: Room: - Gender: Female Mobile Phone Salesperson: : 1980 Requested By: SUKHDEEP SHAH Order Number: [id number] Reading MD: DONAL HENRY Measurements Intervals [place] Rate: 54 P: 56 MD: 163 QRS: 45 QRSD: 96 T: 34 QT: 433 QTc: 413 Interpretive Statements SINUS BRADYCARDIA No previous ECG available for comparison Electronically Signed On 07-26-2023 7:46:53 EST by DONAL HENRY Dictated By: Donal Henry D.O. Signed By:07/26/23 0747 DD/ 1110 TD/TT: Edger Machine Setter: Authorizing ProviderResult TypeResult StatusCorey Alyssa DOCLINISYNC IMAGINGFinal Result documented in this encounter Visit Diagnoses Not on filedocumented in this encounter Care Teams Team MemberRelationshipSpecialtyStart [place] [address] [place] [address] PCP - Medical [employer]02/04/2312 [place] [address] [place] [address] PCP - GeneralFamily Vrddojmr53/13/24documented as of this encounter
--- OUTSIDE RECORDS SUMMARY | 2025-04-04 12:45 | XMS_ITS | Clinical Summary ---
Author Organization [facility] Address [address] [place] [address] Care Team Providers Care Manager Lpn Name Role Phone Agapito Patel MD Unavailable [phone] Agapito Patel MD Primary Care Provider [phone] Allergies Active AllergyReactionsCriticalityNoted DateCommentsWound Dressing Adhesive 11/12/2022 [...] ProblemNoted DateDiagnosed DateGERD (gastroesophageal reflux disease)05/07/2024 Pancreatic iofkdyaetglvx16/28/8575Zxktzzgpwi93/20/2023ifficulty walking 11/12/20229881Liwiuptqr93/20/4630Xtykjttaxypzminwav76/20/0791Hbqgpqewndht49/20/2023 Osywgkb8211/12/2022Seasonal allergic whdjkwys59/20/2023Unrefreshed by sleep 11/12/2022 Resolved Problems ProblemNoted DateDiagnosed DateResolved DateIrritable bowel/ Muscle tdmxxp71Obstructive sleep apnea /20/2023 01/20/2023 Encounters DateTypeDepartmentCare ChofFyepjedgbws00/27/2025Refill [facility] [address] [place] [address] Anamika Reynolds NP Primary mymrmapdkawv16/07/2025Orders Only [facility] [address] [place] [address] Katelin Simpson MA Primary zuddznsmuqqw14/07/2025Orders Only [facility] [address] [place] [address] Anamika Reynolds NP 02/24/2025Telephone [facility] [address] [place] [address] Kelin Figueroa MA 02/16/2025 11:30 AM EDTOffice Visit [facility] [address] [place] [address] Anamika Reynolds NP Primary hypertension (Primary Dx)02/16/20252948Ndnfxt54/24/2025Telephone [facility] [address] [facility] [place] [address] Agapito Patel MD from Last 3 Months Immunizations ImmunizationAdministration [...] oz pure alcohol)Caffine intake: 1 cup a nfpL4081 Health LiteracyAnswerDate RecordedHow often do you need [...] relatives?Once a week02/16/2025How often do you attend cheondoism or spiritism services?More than 4 times per year02/16/2025Do you belong to any clubs or organizations such as cheondoism groups, unions, fraASAN Security Technologies or athletic groups, or school groups?Yes 02/16/2025How often do you attend meetings of the clubs or organizations you belong to?More than 4 times per year02/16/2025re you , , , , never , or living with a partner?Ffoabot0502/16/2025 AUDIT-CAnswerDate RecordedQ1: How often do you have [...] Health Questionnaire-2 Score0 02/16/2025[facility] [place] of Occupational Health - Occupational Stress QuestionnaireAnswerDate RecordedDo you feel stress - tense, restless, nervous, or anxious, or unable to sleep at night because yourmind is troubled all the time - these days?To some naawph9202/16/2025Exercise Vital SignAnswerDate Recorded On average, how many [...] were you homeless or living in a fci (including now)?No02/16/2025CommentsNo Sex and Gender InformationValueDate RecordedSex Assigned at BirthNot on file Legal WewTvskui71/15/2023 8:10 PM EDTGender IdentityNot on fileSexual OrientationNot on file Last Filed Vital Signs Vital SignReadingTime TakenCommentsBlood Zhwhnkdu034/8602/16/2025 11:18 AM EDT Jwryb210202/16/2025 11:18 AM DWPNdjtegudbqv58.5 ??C (97.7 ??F)02/16/2025 11:18 AM EDTRespiratory Ybyw067106/14/2024 9:14 AM ESTOxygen Gnzjyhgkfi75%02/16/2025 11:18 AM EDTInhaled Oxygen Concentration--Hfdjst404 kg (236 lb)02/16/2025 11:18 AM EDT Yvagqj343.4 cm (5' 5.5 )02/16/2025 11:18 AM EDTBody Mass Index38.68002/16/2025 11:18 AM EDT Plan of Treatment Health MaintenanceDue DateLast DoneCommentsCT Ttsvogkvpvsn11/11/1979FIT-DNA 1980FIT1978FOBT1978Jqkxgddjkwvua53/11/1979COVID-19 Vaccine ( season)5009/20/2020, 08/23/2020Influenza Vaccine (#1) 512/, 02/13/2021, 02/08/20209566Zjjtdffaw50/23/13235210/15/2024, 09/26/2023, 06/04/2022, Additional history kfztavAchzawlikfa75/15/2034 10/08/2023, 10/08/2023olorectal Cancer Dcmeicnib65/15/2034HPV/Cotest Lsxacntyozlo38/28/2024, 01/05/2020Cervical Cancer ScreeningDiscontinuedPap Smear Lwrqteqjszyj52/03/2025, 08/21/2023, 01/05/2020, Additional history exists Pneumococcal Vaccine: Pediatrics (0 to 5 Years) and At-Risk Patients (6 to 64 Years)Aged OutNo longer eligible based on patient's age to complete this topic Procedures Procedure NamePriorityDate/TimeAssociated DiagnosisCommentsBI MAMMOGRAM SCREENING TOMOSYNTHESIS GFQOBGVBUJcoyrfq21/23/2025 9:28 AM EDT Encounter for screening mammogram for malignant neoplasm of breast PAP PLYHHWiiixns80/03/2025 12:00 AM EDTCOLONOSCOPY JBRYJMJLNAEunsfoz91/15/2024 3:56 PM EDTTHIN PREP TIS PAP AND HR HPV PIGGmzobdx59/28/2024 10:10 PM EDT Well woman exam with [...] Dawkins M.D. Authorizing ProviderResult TypeResult StatusCorey Alyssa [facility] BI PROCEDURESFinal Result * Pap Smear [...] / LateralityCollection Method / VolumeCollection Time Received BylzMcfe86/28/2024 10:10 PM EDT Narrative Authorizing ProviderResult TypeResult StatusCorey Alyssa DOLAB CYTOLOGY ORDERABLESFinal ResultPerforming OrganizationAddressCity/State/ZIP CodePhone Number [facility] from Last 3 Months or Most Recently Relevant to Health Maintenance Insurance Care Teams Team MemberRelationshipSpecialtyStart [place] [address] [place] [address] PCP - Medical [employer] [employer]02/04/2312 [place] [address] [place] [address] PCP - GeneralFamily Mkmigchq80/13/24
--- OUTSIDE RECORDS SUMMARY | 2025-04-04 12:45 | XMS_ITS | Encounter Summary ---
Author Organization [facility] Healthcare Address [address] [place] [address] Care Team Providers Care Power Brake Rebuilder Name Role Phone Agapito Patel MD Unavailable [phone] Agapito Patel MD Primary Care Provider [phone] Reason for Visit * ReasonCommentsNew Med Request Encounter Details DateTypeDepartmentCare Team (Latest Contact Info)Wuvadtdjtva48/27/2025Refill [facility] [address] [place] [address] [place] [address] [address] [facility] [address] [place] [address] [id number] Primary hypertension Social History Tobacco UseTypesPacks/DayYears UsedDateSmoking Tobacco: NeverSmokeless Tobacco: NeverAlcohol UseStandard Drinks/WeekCommentsNever0 (1 standard drink = 0.6 oz pure alcohol)Caffine intake: 1 cup a otwE5330 Health LiteracyAnswerDate Recorded How often do you [...] relatives?Once a week02/16/2025How often do you attend gnosticism or anglican services?More than 4 times per year02/16/2025Do you belong to any clubs or organizations such as gnosticism groups, unions, [employer] or athletic groups, or school groups?Yes 02/16/2025How often do you attend meetings of the clubs or organizations you belong to?More than 4 times per year02/16/2025re you , , , , never , or living with a partner?Agjvitq7802/16/2025 AUDIT-CAnswerDate RecordedQ1: How often do you have [...] very hard 02/16/2025PHQ-2AnswerDate RecordedPatient Health Questionnaire-2 Score0 02/16/2025[facility] - Occupational Stress QuestionnaireAnswerDate RecordedDo you feel stress - tense, restless, nervous, or anxious, or unable to sleep at night because yourmind is troubled all the time - these days?To some mgxxlw9102/16/2025Exercise Vital SignAnswerDate Recorded On average, how many [...] were you homeless or living in a intermediate (including now)?No02/16/2025CommentsNo Sex and Gender InformationValueDate RecordedSex Assigned at BirthNot on file Legal WlpSghyze48/15/2023 8:10 PM EDTGender IdentityNot on fileSexual OrientationNot on filedocumented as of this encounter Plan of Treatment Not on file documented as of this encounter Visit Diagnoses Diagnosis Primary hypertension Unspecified essential hypertension documented in this encounter Care Teams Team MemberRelationshipSpecialtyStart [place] [address] [place] [address] PCP - Medical [place] [employer]02/04/2312 [place] [address] [place] [address] PCP - GeneralFamily Fsdikkeg15/13/24documented as of this encounter
--- OUTSIDE RECORDS SUMMARY | 2025-04-04 12:45 | XMS_ITS | Clinical Summary ---
Author Organization [facility] Address [address], [address] [place] [address] Care Team Providers Care Shift Stacker Name Role Phone Agapito Patel MD Primary Care Provider [phone] Allergies Active AllergyReactionsCriticalityNoted DateCommentsWound Dressing Adhesive 11/12/2022 [...] packet tive Active Problems ProblemNoted DateDiagnosed DateEsophageal ukaepbgog64/20/2024ancreatic dpthwhwgvtugd56/28/4366Lzogbicyg37/20/7396Pvqxjcyxfkfffqlspk34/20/2023 Yzjcguvybasz05/20/5507Eujbvrk69/20/2023Seasonal allergic jrkkpowl33/20/2023 Unrefreshed by sleep11/12/2022ifficulty lsvdikf1211/12/20223185Kgspedbdxr50/20/2023 Social History Tobacco UseTypesPacks/DayYears UsedDateSmoking Tobacco: NeverSmokeless Tobacco: Never Tobacco Cessation:Counseling Given: Not Answered Alcohol UseStandard Drinks/WeekCommentsNot Asked0 (1 standard drink = 0.6 oz pure alcohol)rarelyInterpersonal Safety Domain Source: IP Abuse ScreeningAnswer Date RecordedPhysical gunqmYuvqmy87/15/2024Verbal prcduKrueyy20/15/2024Emotional epiufQsdaxh33/15/2024Financial rzeunMqpqnk59/15/2024Sexual zkmigRsuctq79/15/2024 CommentsNoSex and Gender InformationValueDate RecordedSex Assigned at MuwyaYixwbx01/07/2024 2:10 PM ESTLegal XobNhnscd24/10/2013 4:11 PM ESTGender EgxgayamQelqhh79/07/2024 2:10 PM ESTSexual YojzzyzwfhpSzdkrzwt46/07/2024 2:10 PM EST Last Filed Vital Signs Vital SignReadingTime TakenCommentsBlood Uxvmqppu210/9805/14/2024 10:00 AM EST Mzoji928505/14/2024 10:00 AM GBDTmwigftkrhf49.1 ??C (96.9 ??F)10/08/2023 2:09 PM EDTRespiratory Vdgu186801/01/2024 3:31 PM EDTOxygen Mnkvbmzafd22%01/01/2024 3:31 PM EDTInhaled Oxygen Concentration--Wwsiez35.8 kg (220 lb)05/14/2024 10:00 AM FESGrsolg559.4 cm (5' 5.5 )05/14/2024 10:00 AM ESTBody Mass Index36.0505/14/2024 10:00 AM EST Plan of Treatment Health MaintenanceDue DateLast DoneCommentsFIT/FOBT: Average risk1978 Fecal-DNA (Cologuard): Average risk1978Sigmoidoscopy/CT colonography 1978 8258Sqhgyn83/11/1989Depression Yrmmuaqzuo01/11/1991HIV jdakxc5311/03/1993 Hepatitis C ujujyy8611/03/1996Hepatitis B vaccine (1 of 3 - 19+ 3-dose series) 1997Diabetes zynraa5411/03/2013Flu vaccine (#1)/, 02/13/2021, 02/08/2020COVID-19 Vaccine ( season)504/, 1Breast cancer ubbwnp215/07/2023, 06/04/2022, 03/02/2021, Additional history rmixrlSqgftyjykyy70/15/203405/, 4Colorectal Cancer Vytcwa954DTaP/Tdap/Td vaccine (3 - Td or Tdap)11/28/2033 11/29/2023, [...] Opn 11mm Braid Cath Rot Bx/10 - [id number] Implanted:Qty: 1 [facility] 10[facility]08[facility]ENT[facility]-WD05/14/[id number] / / [id number] Hemo L235cm Wrk Chn Thelma Opn 17mm Braid Cath Rot - [id number] Implanted:Qty: 2 on 10/08/2023 [facility]-04/11/[id number] / / [id number] Procedures Procedure NamePriorityDate/TimeAssociated DiagnosisCommentsCOLONOSCOPY PROCEDURE Idywqdj5410/08/2023 12:25 PM EDT from Last 3 Months [...] Team MemberRelationshipSpecialtyStart [place] [address] [place] [address] [facility] - [facility]
--- OUTSIDE RECORDS SUMMARY | 2025-04-04 12:48 | XMS_ITS | CCD ---
Author Organization [facility] Care Team Providers Care Roofer Metal Name Role Phone Elisa Antony Unavailable Mariya Finn Unavailable Ele Friend Unavailable MD Agapito Colmenares Primary Care Provider [phone] DO Surinder Del Castillo Attending Provider Malcolm Iglesias Unavailable DR RJ SHAH Attending Unavailable DR RJ SHAH Consulting Unavailable DR RJ SHAH Admitting Unavailable MD Agapito Colmenares Primary Care Provider SHREYA Ivey Attending Provider MD Malcolm Iglesias Attending Provider MD Maxx Cornelius Attending Provider Self, Referral Attending Provider Unavailable MD Agapito Colmenares Primary Care Provider [phone] MD Agapito Colmenares Attending Provider [phone] MD Agapito Colmenares Primary Care Provider DO Surinder Del Castillo Attending Provider Agapito Colmenares MD Primary Care Provider YOLANDA SANTOYO Referring Unavailable AGAPITO COLMENARES Primary Care Unavailable Agapito Colmenares MD Primary Care Provider Rj Shah Attending Unavailable Agapito Colmenares Primary Care Unavailable Rj Shah Admitting Unavailable Agapito Colmenares Primary Care [facility]available [facility] Admitting Unavailable [facility], Surinder P Attending Unavailable Agapito Colmenares Admitting Unavailable Agapito Colmenares Primary Care Unavailable Agapito Colmenares Attending Unavailable DONNA STEEN Attending Unavailable AGAPITO COLMENARES Referring Unavailable AGAPITO COLMENARES Primary Care Unavailable AGAPITO COLMENARES Primary Care Unavailable YOLANDA SANTOYO Referring Unavailable NATASHA JOHNSON Attending Unavailable AGAPITO COLMENARES Primary Care Unavailable NATASHA JOHNSON Admitting Unavailable Agapito Colmenares MD Unavailable Agapito Colmenares MD Primary Care Provider Unavailable [facility] MD Primary Care Provider AGAPITO COLMENARES Referring Unavailable AGAPITO COLMENARES Primary Care Unavailable AGAPITO COLMENARES Referring Unavailable AGAPITO COLMENARES Primary Care Unavailable AGAPITO COLMENARES Primary Care Physician [phone] Maria Esther JUARES Attending Unavailable KATALINA WEIR [...] Allergen(s)Allergy TypeDate of OnsetReaction(s) Facility (1 source)DesonideDrug Jymarjm38-30-0715Azq [facility] Repository (20 sources)Wound Dressing AdhesivePropensity to adverse reactions to drug 64-17-2556Y[facility] (5 sources)Adhesive bandage; Translations: [Adhesive Bandage]Allergy to substanceTraumatic tear of skin (disorder), Eruption of skin (disorder)[facility] (2 sources)No Known Medication Allergies; Translations: [No Known Medication Allergies]Propensity to adverse reactions (disorder)[facility] RepositoryNEGATED: Highlighted row has been ruled out! (1 source)D[facility] allergyExec[facility]GATED: Highlighted row has been ruled out! (1 source)Drug allergyExec[facility] NEGATED: Highlighted row has been ruled out! (1 source)Drug allergyExec[facility] Medications Current Medications MedicationDrug Class(es)DatesSig (Normalized)Sig (Original)acetaminophen 500 mg oral tablet (19 sources)take 2 tablets by mouth every six hours as neededacetaminophen (TYLENOL EXTRA STRENGTH) 500 mg tablet Take 2 tablets (1,000 mg total) by mouth every6 (six) hours as needed. Activeamylase 279856 unt / lipase 42334 unt / protease [id number] unt delayed release oral capsule (16 sources)Start: 05-07-2022 End: 65-08-3100rggu 82881-101244 capsules by mouth three times daily at mealtime Anzjkx-Wgevyzxo-Kzkzzii (Creon) 36,000-114,000- 180,000 unit Capsule,Delayed Release(Dr/Ec) Active 1 CAP PO Three times daily May 07, 2022 1:00am administer with meals and/or kszdynhlsrnb-gpicbcha-mxcipew (CREON) 36,000-114,000- 180,000 unit capsule,delayed release(DR/EC) Take 1 capsule (36,000 units of lipase total) by mouth in the morning and 1 capsule (36,000 units of lipasetotal) at noon and 1 capsule (36,000 units of lipase total) before bedtime. Activeaspirin 81 mg delayed release oral tablet (12 sources)Platelet Aggregation Inhibitor, Nonsteroidal Anti-inflammatory Drug Start: 05-07-2022 End: 78-37-2809ltef 81 mg by mouth once dailyAspirin Active 81 MG PO Daily May 07, 2022 1:00amcalcium chloride 0.0014 meq/ml / potassium chloride 0.004 meq/ml / sodium chloride 0.103 meq/ml / sodium lactate 0.028 meq/ml injectable solution (1 source)Start: 91-89-0144zkmwkvgo ringers IV soln infusioncholecalciferol 0.125 mg oral tablet (20 sources)Vitamin DStart: 74-03-7810axba 1 tablet by mouth once daily Cholecalciferol [...] for oral suspension (20 sources)Bile Acid SequestrantStart: 58-78-5398aqalfroyqvhrdh 4 g/9 g Oral Pwdr 1 packet(s), Oral, Daily, 30 EA, Refill(s) 0 Start Date: 10/01/24 Status: Ordered Quantity: 30.0 Unit: EA Repeat number: 1Start: 40-65-3212teqt 1 dose by mouth once dailycholestyramine (QUESTRAN) 4 g packet Take 1 packet (4 g total) by mouth daily. 04/07/2024 Activeciprofloxacin 500 mg oral tablet (6 sources)Quinolone AntimicrobialStart: 16-23-5637Zraqy 500 mg Tab See Instructions, 1 tab po night prior to cystoscopy. 1 tab po following cystoscopy ., # 2 tab(s), Refills(s) 0, Pharmacy: [facility], 104, kg, 10/04/24 9:37:00 EDT, Weight Dosing Start Date: 10/04/24 Status: Ordered Quantity: 2.0 Unit: tab(s) Repeat number: 1Start: 08-26-2024 End: 26-73-1610quuq 1 tablet by mouth in the morningciprofloxacin (Cipro) 500 MG tablet Indications: Urinary Tract Infection Take 1 tablet (500 mg) by mouth in the morning and 1 tablet (500 mg) before bedtime. Do all this for 10 days. 20 tablet 08/26/2024 09/05/2024 ActiveCreon 97588 UNIT (14 sources)Start: 51-91-0614poxt 1 capsule by mouth three times dailyCreon 19871 UNIT 1 CAPSULE Orally THREE TIMES A DAY for 30 days September, Active estradiol 1 mg oral tablet (20 sources)EstrogenStart: 05-07-2022 End: 67-48-4694hjcimrgie (Estrace) 1 MG tablet Indications: Surgical menopause TAKE 1 TABLET DAILY 90 tablet 3 07/19/2024 Activetake 1 tablet by mouth in the morningestradioL (ESTRACE) 0.5 mg tablet Take 1 tablet (0.5 mg total) by mouth in the morning. Active End: 77-70-5846qqttagzbo (Estrace) 0.5 MG tablet 1 (one) time each day at the same time. 0 06/26/2023 Discontinuedestradiol 0.5 mg / norethindrone acetate 0.1 mg oral tablet (5 sources)EstrogenStart: 02-24-2023 End: 25-12-6146szjwgumph-norethindrone 0.5-0.1 MG tablet 02/24/2023 05/07/2024 Discontinued (Therapy completed)famotidine 20 mg oral tablet (20 sources)Histamine-2 Receptor AntagonistStart: 06-13-2023 End: 55-51-3296vxku 1 tablet by mouth once dailyfamotidine (PEPCID) 20 mg tablet Take 1 tablet (20 mg total) by mouth nightly. 03/25/2024 Activefexofenadine hydrochloride 60 mg oral tablet (15 sources)Histamine-1 Receptor Antagonisttake 1 tablet by mouth once daily fexofenadine (JEANNE) 60 mg tablet Take 1 tablet (60 mg total) by mouth daily. ActiveAllegra ActiveFLUoxetine 40 mg oral capsule (20 sources)Serotonin Reuptake InhibitorStart: 46-01-3595HJZiqewyzz (PROzac) 40 MG capsule Indications: Medication refill TAKE 1 CAPSULE IN THE MORNING 90 ca psule 1 12/20/2024 ActiveStart: 11-28-2672XVQqjpscqu (PROzac) 40 MG capsule Indications: Medication refill TAKE 1 CAPSULE IN THE MORNING 90 capsule 1 06/22/2024 ActiveStart: 35-50-5006IGEweklmcm (PROzac) 40 MG capsule Indications: Medication refill TAKE 1 CAPSULE IN THE MORNING 90 capsule 03/24/2024 Active Start: 44-42-1378sspb 40 mg by mouth once dailyFluoxetine Active 40 MG PO Daily May 07, 2022 1:00amPROzac Activefluticasone furoate 0.0275 mg/actuat metered dose nasal spray (2 sources)Corticosteroidtake 2 spray(s) nasal route once dailyfluticasone (VERAMYST) 27.5 mcg/actuation nasal spray Administer 2 sprays into each nostril once daily. Activelisinopril 10 mg oral tablet (4 sources)Angiotensin Converting Enzyme InhibitorStart: 02-16-2025 End: 81-67-4377layp 1 tablet by mouth in the morninglisinopriL (PRINIVIL,ZESTRIL) 10 mg tablet Take 1 tablet (10 mg total) by mouth in the morning. 02/16/2025 08/15/2025 ActiveMagnesium glycinate (2 sources)take 200 mg by mouth once dailyMAGNESIUM GLYCINATE ORAL Take 200 mg by mouth daily. Activemethocarbamol 750 mg oral tablet (5 sources)Muscle RelaxantStart: 05-07-2024 End: 60-45-1722qszk 1 tablet by mouth in the morning, [...] extended release oral tablet (20 sources)beta-Adrenergic BlockerStart: 63-63-5546szkb 1 tablet by mouth once dailymetoprolol succinate 25 mg ER Tab 25 mg = 1 tab(s), Oral, Daily, # 90 tab(s), Refills(s) 0 Start Date: 10/01/24 Status: Ordered Quantity: 90.0 Unit: tab(s) Repeat number: 1Start: 09-93-7627vqqr 1 tablet by mouth once daily metoprolol succinate (TOPROL XL) 25 MG extended release tablet Take 1 tablet by mouth daily 0 02/25/2023 ActiveStart: 98-41-8047fapx 1 tablet by mouth every twenty-four hours in the morningmetoprolol succinate XL (TOPROL XL) 25 mg 24 hr tablet Take 1 tablet (25 mg total) by mouth in the morning. 11/01/2022 Active Start: 67-47-7946rocl 25 mg by mouth once dailyMetoprolol Succinate Active 25 MG PO Daily May 07, 2022 1:00amMetoprolol Succinate Activenitrofurantoin, macrocrystals 25 mg / nitrofurantoin, monohydrate 75 mg oral capsule (6 sources)Nitrofuran AntibacterialStart: 14-95-9285keoz 1 capsule by mouth every twelve hoursMacrobid 100 MG 1 cap(s) Orally 2 times a day for 5 day(s) May, ActiveStart: 19-47-8209bvzf 1 capsule by mouth every twelve hours Macrobid 100 MG 1 cap(s) Orally bid for 5 day(s) Feb, Activeomega-3 polyunsaturated fatty acids 700 mg with Vitamin D oral capsule (3 sources)Start: 33-49-9830pumg 1 capsule by mouth once dailyomega-3 polyunsaturated fatty acids 700 mg with Vitamin D oral capsule 1 cap, Oral, Daily Start Date: 10/04/24 Status: Ordered Repeat number: 7wrkfr8/dha/epa/fish oil/vit D3 (OMEGA-3 PLUS VITAMIN D3 ORAL) (2 sources)take 700 mg by mouth once dailyomega3/dha/epa/fish oil/vit D3 (OMEGA- 3 PLUS VITAMIN D3 ORAL) Take 700 mg by mouth daily. Activepantoprazole 40 mg delayed release oral tablet (20 sources)Proton Pump InhibitorStart: 07-40-8492rywl 1 tablet by mouth twice dailyPantoprazole [address] Tab 40 mg = 1 tab(s), Oral, BID, Refills(s) 0 Start Date: 10/01/24 Status: Ordered Repeat number: 1Start: 22-45-1989jwqlorlhjule (PROTONIX) 40 MG tablet Indications: Chronic GERD TAKE 1 TABLET TWICE A DAY 60 tablet 11 09/15/2023 ActiveStart: 83-73-8396iidg 40 mg by mouth once daily Pantoprazole Active 40 MG PO Daily May 07, 2022 1:00amStart: 03-01-2019 take 1 tablet by mouth every twelve hoursPantoprazole Sodium 40 MG 1 tablet Orally twice a day for 90 days Feb, Activephenazopyridine hydrochloride 200 mg oral tablet (6 sources)Start: 07-57-4470jbbt 1 tablet by mouth every eight hoursPyridium 200 MG 1 tablet after meals Orally Three times a day for 2 day(s) May, ActiveStart: 77-31-2172ztof 2 tablets by mouth every eight hoursPyridium 100 MG 2 tablets after meals Orally Three times a day for 2 day(s) Feb, Active Potassium gluconate (2 sources)POTASSIUM GLUCONATE ORAL Take by mouth in the morning. Active predniSONE 10 mg oral tablet (20 sources)Start: 11-23-2024 End: 64-81-8917vjarrnSGUE (Deltasone) 10 MG tablet Indications: Plantar fasciitis, left , Inflammatory heel pain, left , Difficulty walking 1 tablet twice daily x 7 days; followed by 1 tablet daily as directed until complete 21 tablet 11/23/2024 02/16/2025 DiscontinuedStart: 05-07-2024 End: 37-03-6647smmnlwLUNO (Deltasone) 10 MG tablet Indications: Lumbosacral strain, initial encounter 6 TABS everyday X 3 DAYS, 4 TABS every day X 3 DAYS, 2 TABS every day X 3 DAYS, 1 TAB every day X 3 DAYS 39 tablet 05/07/2024 06/14/2024 Discontinued (Therapy completed)Start: 09-11-2023 End: 80-19-2999bpjnjcJGDF (Deltasone) 10 MG tablet Indications: Synovitis of right ankle , Pain in joint of right ankle , Difficulty walking 1 tablet twice daily x 7 days; followed by 1 tablet daily as directed until complete 21 tablet 09/11/2023 05/07/2024 Discontinued (Therapy completed)predniSONE Not-Taking rifAXIMin 550 mg oral tablet (6 sources)Rifamycin AntibacterialStart: 03-19-2024 End: 38-91-3218ncmt 1 tablet by mouth in the morning, then take 1 tablet by mouth in the evening, then take 1 tablet by mouth at bedtimerifAXIMin (Xifaxan) 550 MG tablet Take 1 tablet by mouth in the morning and 1 tablet in the evening and 1 tablet before bedtime. 03/19/2024 06/14/2024 Discontinued (Therapy completed)rosuvastatin calcium 5 mg oral tablet (20 sources)HMG-CoA Reductase InhibitorStart: 92-53-6559pssovgibmxue (Crestor) 5 MG tablet Indications: Medication refill TAKE 1 TABLET IN THE MORNING 90 tablet 1 12/02/2024 ActiveStart: 21-56-2132btfljnltfuem (Crestor) 5 MG tablet Indications: Medication refill TAKE 1 TABLET IN THE MORNING 90 tablet 3 12/26/2023 ActiveCrestor ActiveVitamin D3 (13 sources)Vitamin D3 ActiveVitamin D3 1000 intl units (25 mcg) Tab (3 sources)Start: 70-52-2995wnra 1 tablet by mouth once dailyVitamin D3 1000 intl units (25 mcg) Tab 25 mcg = 1 tab(s), Oral, Daily Start Date: 10/04/24 Status: Ordered Repeat number: 1 Completed/Discontinued Medications MedicationDrug Class(es)DatesSig (Normalized)Sig (Original)dicyclomine hydrochloride 20 mg oral tablet (14 sources)AnticholinergicStart: 06-04-4266ybab 1 tablet by mouth every twelve hoursDicyclomine HCl 20 MG 1 tablet Orally TWICE A DAY for 30 days Feb, Not-Yqplew49 hr hyoscyamine sulfate 0.375 mg extended release oral tablet (14 sources)Start: 76-75-4776frxj 1 tablet by mouth every twelve hoursLevbid [...] tablet (20 sources)Serotonin Reuptake InhibitorStart: 03-03-2019 End: 81-36-4329hbdo 1 tablet by mouth once dailySertraline (Zoloft) 100 mg Tablet Discontinued 100 MG PO Daily March 03, 2019 12:00am May 07, 2022 2:16pmtake 2 tablets by mouth every twenty-four hoursSertraline HCl 100 MG 2 tablet Orally Once a day Not-Taking Problems Active Problems Problem ClassificationProblemDateDocumented DateEpisodic/ChronicAbdominal pain (2 sources)Pain in female pelvis; Translations: [Pelvic and perineal pain] 32-43-3835MhgewsiwCaleqtzwbbdihu/social admission (2 sources)Patient encounter status; Translations: [Other specified counseling] 39-54-7510YqdlsvhxPazivmozv of lipid metabolism (20 sources)Hypercholesterolemia; Translations: [Pure hypercholesterolemia, unspecified]Onset: 701898-08-3130MqcgwseTkxuwrqgau disorders (20 sources)Gastroesophageal reflux disease; Translations: [Gastro-esophageal reflux disease without esophagitis]Onset: 01-30-2022 Resolved: 958069-98-5838EnpkkmzUsgkxuwqv hypertension (20 sources)Hypertensive disorder; Translations: [Essential (primary) hypertension]Onset: 803546-81-4264HqrunpeHdqtzzawsadlj symptoms and ill- defined conditions (13 sources)Dysuria; Translations: [Hematuria, unspecified]Onset: 03-06-2021 Resolved: 45-24-0001RxsifeziDwzkjorjigmip and screening for infectious disease (6 sources)Contact with and (suspected) exposure to other viral communicable diseases; Translations: [Encounter for screening for human papillomavirus (HPV)] Onset: 02-14-2021 Resolved: 98-04-5847FwujdvxsGedlhuwpkr disorders (3 sources)Premature sijcythch28-99-3010QmvdxfmOuhr disorders (20 sources)Depressive disorder; Translations: [Depression]Onset: 11-12-2022 58-72-5819NyvlfnqQrkydcthttkyr gastroenteritis (4 sources)Chronic diarrhea; Translations: [Noninfective gastroenteritis and colitis, unspecified]08-21-0670RpawindmLsstsrvivvog breast conditions (3 sources)Cyst of vvdkjo29-52-1995OpszxpbeSpovs connective tissue disease (2 sources)Plantar fasciitis of left foot; Translations: [Plantar fascial fibromatosis]26-85-0909KmratyhgEyzwx connective tissue disease (2 sources)Heel pain; Translations: [Pain in left foot]50-10-6865XvptdjjzWhnmh connective tissue disease (2 sources)Calcaneal spur of left foot; Translations: [Calcaneal spur, left foot]13-44-2346JayetsomEnitb diseases of kidney and ureters (2 sources)Disorder of kidney and/or ureter; Translations: [Other specified disorders of kidney and ureter]Onset: 71-34-8261EurlefiIsioy diseases of kidney and ureters (3 sources)Renal mass; Translations: [Other specified disorders of kidney and ureter]Onset: 929911-73-8383IvmaekcEllyk diseases of kidney and ureters (3 sources)Ureterocele; Translations: [Other specified disorders of kidney and ureter]Onset: 035077-06-9581IkpnuybGbbxh gastrointestinal disorders (14 sources)Irritable bowel syndrome with diarrhea; Translations: [Irritable bowel syndrome with diarrhea]ChronicOther gastrointestinal disorders (14 sources)Incontinence of feces; Translations: [Full incontinence of feces] EpisodicOther gastrointestinal disorders (7 sources)Difficulty swallowing; Translations: [Dysphagia, unspecified]Episodic Other gastrointestinal disorders (1 source)Other fecal abnormalities; Translations: [Other fecal abnormalities] Onset: 62-25-1428LodikkhpBwklo gastrointestinal disorders (5 sources)Mass of right ovary; Translations: [Other noninflammatory disorders of ovary, fallopian tube and broad ligament]Onset: 307104-10-4261Yfgavjjl Other nervous system disorders (20 sources)Difficulty walking; Translations: [Difficulty in walking, not elsewhere classified]Onset: 366654-43-7940LyovfheTzvzb non-traumatic joint disorders (2 sources)Bilateral rotator cuff arthropathy of shoulder; Translations: [Other specific arthropathies, not elsewhere classified, right shoulder]05-07-2024 ChronicOther non-traumatic joint disorders (2 sources)Joint pain; Translations: [Pain in unspecified joint]05-07-2024 EpisodicOther non-traumatic joint disorders (2 sources)Hip pain; Translations: [Pain in right hip]50-30-1066YfwhnyyiXcrqn nutritional; endocrine; and metabolic disorders (20 sources)Obesity; Translations: [Obesity, unspecified]Onset: 11-12-2022 15-60-3404JapolshCuhpy nutritional; endocrine; and metabolic disorders (4 sources)Obesity caused by energy imbalance; Translations: [Class 1 obesity due to excess calories with serious comorbidity and body mass index (BMI) of 31.0 to 31.9 in adult]02-76-5461JgbvvyvAmeuk nutritional; endocrine; and metabolic disorders (2 sources)Body mass index 30+ - obesity; Translations: [Obesity, unspecified] 63-95-6102CcvehwtOjmpp screening for suspected conditions (not mental disorders or infectious disease) (8 sources)Encounter for screening for malignant neoplasm of cervix; Translations: [Patient encounter status]Onset: 31-27-8360HjpwtecgZfkyx skin disorders (2 sources)Night sweats; Translations: [Generalized hyperhidrosis]05-07-2024 EpisodicOther upper respiratory disease (20 sources)Seasonal allergic rhinitis; Translations: [Other seasonal allergic rhinitis]Onset: 929649-89-3832MzmxxbyLkihyut cyst (2 sources)Cyst of ovary; Translations: [Unspecified ovarian cyst, unspecified side]98-32-8294QglpetoyDongkedq codes; unclassified (20 sources)Unrefreshed by sleep; Translations: [Other sleep disorders]Onset: 126202-95-1077YomvoyyFbacucox codes; unclassified (1 source)Sleep apnea, unspecified; Translations: [Sleep apnea, unspecified] Onset: 04-90-6797ArgiaktFmgthqrq codes; unclassified (2 sources)Sleep apnea; Translations: [Sleep apnea, unspecified]09-29-2023 ChronicResidual codes; unclassified (1 source)Family history of other diseases of the digestive system; Translations: [Family history of other diseases of the digestive system]Onset: 10-01-9198PwrzezwlZkblfewz codes; unclassified (3 sources)Unrefreshed by wyosb37-10-2214DvfnorakFisjicqgrfr; intervertebral disc disorders; other back problems (3 sources)Inflammation of sacroiliac joint; Translations: [Sacroiliitis, not elsewhere classified]Onset: 295947-27-1864HxdmyigQoskhhykydo; intervertebral disc disorders; other back problems (4 sources)Chronic neck pain; Translations: [Cervicalgia]29-80-2265Ksntsskw Sprains and strains (2 sources)Lumbosacral strain; Translations: [Strain of muscle, fascia and tendon of lower back, initial encounter]61-53-4512YouvgmcbTpujhtsrveoh (1 source)Pain in left shoulder; Translations: [Pain in left shoulder]Onset: 34-66-5928Qtytakr tract infections (2 sources)Acute cystitis with hematuria; Translations: [Urinary tract infection, site not specified]Onset: 03-06-2021 Resolved: 61-32-1132Vnwtioxp Past or Other Problems Problem ClassificationProblemDateDocumented DateEpisodic/ChronicOther gastrointestinal disorders (20 sources)Irritable bowel syndrome; Translations: [Mixed irritable bowel syndrome]Onset: 11-12-2022 Resolved: 860637-43-5177TdlmadeJrfum gastrointestinal disorders (3 sources)Dysphagia, unspecified; Translations: [Dysphagia, unspecified]Onset: 43-48-8429HvrmvxjkJiirs gastrointestinal disorders (20 sources)Dysphagia; Translations: [Dysphagia, unspecified]Onset: 11-12-2022 22-37-1197IeqczpdyNczue gastrointestinal disorders (2 sources)Esophageal dysphagia; Translations: [Other dysphagia]Onset: 358326-53-4254EsbsqpwiObuwm injuries and conditions due to external causes (20 sources)Muscle strain; Translations: [Other injury of unspecified body region, initial encounter]Onset: 11-12-2022 Resolved: 289851-50-6084ExekngqyNbajl upper respiratory infections (1 source)Acute upper respiratory infection, unspecified; Translations: [Viral upper respiratory illness J06.9]Onset: 02-14-2021 Resolved: 15-67-5396EoehaxqvWewptvklmb disorders (not diabetes) (20 sources)Pancreatic insufficiency; Translations: [Other specified diseases of pancreas]Onset: 634462-76-3616BxppveaxCvebnrzm codes; unclassified (20 sources)Obstructive sleep apnea syndrome; Translations: [Obstructive sleep apnea (adult) (pediatric)]Onset: 11-12-2022 Resolved: 535982-38-9583CmvjffvUjdlxwvgiwuo (10 sources)Unclassified (2 sources)Exposure to COVID-19 virus Z20.822Onset: 08-07-2022 Resolved: 12-30-2021 Results Test NameValueInterpretationReference RangeFacilityCT UROGRAM W AND WO IV CONTRASTon 32-39-8666YZ UROGRAM W AND WO IV CONTRAST10/29/2024 1:21 [...] Bosniak type I.NormalNot Available Ambulatory Visit Summaryon 47-21-7711Izvmkrtauh Visit SummaryAmbulatory Visit Summary CHEPELillian JELANI Gerardo [...] [facility] [address], [place] [id number]- Medications What How Much When Instructions Unchanged [...] What are the signs (more content not included)...[facility]/Clinic Noteon 05-46-6449Rwaqzbm Office/Clinic NoteUrology Office/Clinic Note Chief Complaint Cysto [...] she wipes intermittently. 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; hx chronic indwelling foreign body in urinary [...] Contact Information MOR HARPER, Maria Esther Salguero, [facility] [address], [place] [address]- Additional Instructions: f/u after CTU complete Patient [...] BID rosuvastatin 5 mg (more content not included)...NormalCleveland ClinicComment on above:Result Comment: Electronically Signed By: Maria Esther JUARES MD\.br\Date and Time Signed: 10/19/24 11:48 EDT\.br\Electronically Co- Signed By: Nicky Elliott\.br\Date and Time Co-Signed: 10/19/24 11:47 EDTUS RENAL COMPLETEon 73-29-5294WG RENAL COMPLETEEXAM: Renal Ultrasound: REASON FOR EXAM: [...] report is generated using voice recognition reporting ([employer]). On occasion, [employer]en[employer] Technologiescribe erroneously drops words from the report or replaces the spoken word with a similar sounding word. Please call with any questions/concerns regarding the report. Dictated and transcribed 10/14/2024/ashvin This report has been electronically signed and approved by the interpreting radiologist.NormalNot AvailableUrine Cytology ([facility])on 03-07-6858Eespvmarecf exam Cytology (U) [Interp]Diagnosis InfoInvalid Interpretation CodeCleveland ClinicComment on above:Result Comment: A:Urine,Clean Catch:Voided Interpretation - Adequate cellularity for evaluation. CPT 38372 MicroScopic Description - Adequacy - Gross Description Site ID:A color Yellow fixative Alcohol Specimen designated Clean Catch received in alcohol preservative and labeled with the patient???s name, consists of 50ml slightly cloudy yellow fluid. Electronically signed by : on: 10/07/2024 13:14:24Performed By: #### [id number] #### [facility] [address], [place] [address]Zbbcneekga Visit Summaryon 40-75-0834Nqyogiektz Visit Summary Ambulatory Visit Summary JELANI FREEMAN [...] Appointments Follow Up with [facility] When: Comments: For procedure as scheduled. Where: Medications What How Much When Instructions New ciprofloxacin (Cipro 500 mg Tab) See instructions 1 tab po night prior to cystoscopy. 1 tab po following cystoscopy. Pickup at [facility] Unchanged cholecalciferol (Vitamin D3 1000 [...] if questions or concerns Pharmacy Information [facility]: [address] [place], [place] [address] [phone] Allergies Adhesive Bandage (Skin tear, Rash) No [...] many urinary cancers. Fo (more content not included)...NormalCleveland ClinicUrine Cytology ([facility])on 03-00-1714ZV Method of ExtractionVoidedNormUniversity Hospitals Health SystemComment on above:Performed By: #### [id number] #### [facility] [address], [place] [address]MZ Number of Xeqx6Bqtebuz Interpretation CodeCleveland ClinicComment on above:Performed By: #### [id number] #### [facility] [address], [place] [address]NV SpecimenClean CatchNormalFisher Ace Medical CenterComment on above:Performed By: #### [id number] #### [facility] [address], [place] [address]CG Type of ServiceTechnical OnlyNormalFisher [facility] St[facility] Medical CenterComment on above:Performed By: #### [id number] #### [facility] [address], [place] [address]Kdkbvog Office/Clinic Noteon 57-60-9424Bnnaqtr Office/Clinic NoteUrology Office/Clinic Note Chief Complaint New patient micoscopic hematuria HPI Staff 43 yr old female referred by Dr Rj Shah for microscopic blood in urine. Urine done @[facility] 08/26/24positive for blood. Urine rechecked at [facility] 09/20/24. Small blood and Ur. rbc 3-5. Had urine done in [facility] for a rheumatology appt 07/30/24 and had [...] she wipes intermittently. 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 1 tab po following cystoscopy., # 2 tab(s), Refills(s) 0, [facility]acy: [facility], 104, kg, 10/04/24 9:37:00 EDT, Weight Dosing Follow-up With When Contact Information [facility] Additional Instructions: For procedure as scheduled. [...] neoplasm of female breast: Mother. Rheumatoid arthritis: Father.[facility]tering [facility] Behavioral Medical CenterComment on above: Result Comment: Electronically Signed By: KATALINA WEIR PA-Cbr\Date and Time Signed: 10/04/2509:10 EDTURINALYSIS, COMPLETEon 10-48-4936KKYYFGUCffmklft Normal(NONE - NEG)[facility] ClinicComment on above:Order Comment: FACILITY: [facility] [id number] By: #### UA #### [place] [facility] [address] [place], [id number] BACTERIANONENormal(NONE - OCC)[facility] ClinicComment on above:Order Comment: FACILITY: [facility] [id number] By: #### UA #### [facility] [address] [place], [address] Bilirubin Ql (U)NegativeNormal(NEG)[facility] ClinicComment on above:Order Comment: FACILITY: [facility] [id number] By: #### UA #### [facility] [address] [place], [id number] CHARACTERHAZYNormal(CLEAR - HAZY)[facility] ClinicComment on above:Order Comment: FACILITY: [facility] [id number] By: #### UA #### [facility] [address] [place], [address] Color (U)P YELNormal(P YEL - L AMB)[facility] ClinicComment on above:Order Comment: FACILITY: [facility] [id number] By: #### UA #### [facility] [address] [place], [address] Glucose Ql (U)NegativeNormal(NEG)[facility] ClinicComment on above:Order Comment: FACILITY: [facility] [id number] By: #### UA #### [facility] [address] [place], [address] Ketones Ql (U)NegativeNormal(NEG)[facility] ClinicComment on above:Order Comment: FACILITY: [facility] [id number] By: #### UA #### [facility] [address] [place], [address] LEUK. ESTERASENegativeNormal(NEG)[facility] ClinicComment on above:Order Comment: FACILITY: [facility] [id number] By: #### UA #### [facility] [address] [place], [address] Mucus Ql (Urine sed)NONENormal(NONE - OCC)[facility] Comment on above:Order Comment: FACILITY: [facility] [id number] By: #### UA #### [facility] [address] [place], [address] Nitrite Ql (U)NegativeNormal(NEG)[facility] ClinicComment on above:Order Comment: FACILITY: [facility] [id number] By: #### UA #### [facility] [address] [place], [id number] OCCULT BLD.SMALLHigh(NEG)[facility] ClinicComment on above: Order Comment: FACILITY: [facility] [id number] By: #### UA #### [facility] [address] [place], [address] pH (U)6.0 [pH]Normal(5.0 - 9.0)[facility] ClinicComment on above:Order Comment: FACILITY: [facility] [id number] By: #### UA #### [facility] [address] [place], [address] SP. GRAVITY1.006Normal(1.001 - 1.035)[facility] Comment on above:Order Comment: FACILITY: [facility] [id number] By: #### UA #### [facility] [address] [place], [id number] SQUAMOUS EPIOCCNormal(NONE - OCC)[facility] ClinicComment on above:Order Comment: FACILITY: [facility] [id number] By: #### UA #### [facility] [address] [place], [id number] UR. RBC3-5High(0 - 2)[facility] ClinicComment on above:Order Comment: FACILITY: [facility] [id number] By: #### UA #### [facility] [address] [place], [id number] UR. WBC0-4Normal(0 - 4)[facility] ClinicComment on above: Order Comment: FACILITY: [facility] [id number] By: #### UA #### [facility] [address] [place], [address] Urobilinogen (U) [Mass/Vol]0.2 mg/dLNormal(0.2 - <2.0) [facility] HospitalComment on above:Order Comment: FACILITY: [facility] [id number] By: #### UA #### [facility] [address] [facility], [address] IGP,APTIMA HPV,AGE GDLNon 57-70-2129NWR GDLN ACOG TESTINGNote.NOMS HealthcareComment on above:TESTS RESULT FLAG UNITS REF RANGE LAB Clinician Provided Cytology Information Source.............Vagina No. of containers..01 ThinPrep Vial Age Algo ACOG Moni... 30-65 01 FLAG LEGEND: L-Low Normal,H-High Normal,LL-Alert Low,HH-Alert High <-Panic Low,>-Panic High,A-Abnormal,AA-Critical Abnormal Performed at: 01 =G [facility] [address] Christiana Goel MD, HPV APTIMANegativeNegativeNOMS HealthcareComment on above:This nucleic acid amplification test detects fourteen high- risk HPV types (16,18,31,33,35,39,45,51,52,56,58,59,66,68) without differentiation. Performed at: =G - [facility], [place] [id number] Assembly Repairer: Christiana Goel MD, Phone: [phone] Performed at: - [facility], [place] [id number] Assembly Repairer: Christiana Goel MD, Phone: [phone] IGP, APTIMA HPV, RFX 16/18,45Note.NOMS HealthcareComment on above:TESTS RESULT FLAG UNITS REF RANGE LAB DIAGNOSIS: 02 NEGATIVE FOR INTRAEPITHELIAL LESION OR MALIGNANCY. THIS SPECIMEN WAS RESCREENED PART OF OUR RISK MODELER PROGRAM. Specimen adequacy: 02 Satisfactory for evaluation. Performed by: 03 Tami Miller, Certified Hyperbaric Technician (ASC) QC reviewed by: 02 Lavonne Uribe, Hairspring I Inspector . 02 Note: Note 02 The Pap [...] High,A-Abnormal,AA-Critical Abnormal Performed at: 02 WB [facility] [place] [place] [address] [place] [address] Christiana Goel MD, 03 KWCYT [facility] [place] [facility] [address] [address] [place] [address] Jeet Franz MD, SPATULA-ALONE [facility] MAMMOGRAM SCREENING TOMOSYNTHESIS BILATERALon 23-04-0318OR MAMMOGRAM SCREENING TOMOSYNTHESIS BILATERALThis is a summary [...] Dawkins M.D.NormalNot AvailableUrinalysis macro (dipstick) panel (U)on 10-30-9911Laheibaot, UANegativeNegative - 4(70) +++ mg/dL NOMS HealthcareBlood, [...] - 12 mg/dLNOMS HealthcareNOMS HealthcareANA SUBTYPING (8)on 00-14-9415YFPR CENTROMERE B0.5 U/mLNormal(0.0 - 10.0)[facility] ClinicComment on above:Result Comment: PERFORMED ON PHADIA EFFECTIVE 95-41-1894Nktnnhfmc By: #### CBC-4A, UA, ENA6, ACAX3, C3-C4, ESRCRP, CCP #### [facility] [address] [facility], [address] ANTI ds DNA1.1 IU/MLNormal(0.0 - 15.0)[facility] Comment on above:Performed By: #### CBC-4A, UA, ENA6, ACAX3, C3-C4, ESRCRP, CCP #### [facility] [address] [facility], [address] ANTI JULIA-1<0.3Normal(0.0 - 10.0)[facility] ClinicComment on above:Performed By: #### CBC-4A, UA, ENA6, ACAX3, C3-C4, ESRCRP, CCP #### [facility] [address] [facility], [address] ANTI PIT CRANE OPERATOR (U1RNP)1.0 U/mLNormal(0.0 - 10.0)[facility] Comment on above:Performed By: #### CBC-4A, UA, ENA6, ACAX3, C3-C4, ESRCRP, CCP #### [facility] [address] [facility], [address] ANTI SCL 700.7 U/mLNormal(0.0 - 10.0)[facility] Comment on above:Performed By: #### CBC-4A, UA, ENA6, ACAX3, C3-C4, ESRCRP, CCP #### [facility] [address] [place], [address] ANTI BUNCH<0.7Normal(0.0 - 10.0)[facility] ClinicComment on above:Performed By: #### CBC-4A, UA, ENA6, ACAX3, C3-C4, ESRCRP, CCP #### [facility] [place], [address] ANTI SSB/LA1.9 U/mLNormal(0.0 - 10.0)[facility] Comment on above:Performed By: #### CBC-4A, UA, ENA6, ACAX3, C3-C4, ESRCRP, CCP #### [facility] [address] [place], [place] [address] [place], [address] SSA/RO52<0.3Normal(0.0 - 10.0)[facility] ClinicComment on above:Performed By: #### CBC-4A, UA, ENA6, ACAX3, C3-C4, ESRCRP, CCP #### [facility] [address] [place], [place] [address] [place], [address] SSA/RO60<0.4Normal(0.0 - 10.0)[facility] ClinicComment on above:Performed By: #### CBC-4A, UA, ENA6, ACAX3, C3-C4, ESRCRP, CCP #### [facility] [place], [address] C3 AND C4on 5C 3156 MG/DLNormal(88 - 165)[facility] ClinicComment on above:Performed By: #### CBC-4A, UA, ENA6, ACAX3, C3-C4, ESRCRP, CCP #### [facility] [place], [address] C 415 MG/DLNormal(14 - 44)[facility] ClinicComment on above: Performed By: #### CBC-4A, UA, ENA6, ACAX3, C3-C4, ESRCRP, CCP #### [facility] [address] [facility], [address] CARDIOLIPIN IGG, IGA, IGMon 87-70-3200YJP, IgA2.7 U/mL Low(14.0 - 20.0)[facility] ClinicComment on above:Performed By: #### CBC-4A, UA, ENA6, ACAX3, C3-C4, ESRCRP, CCP #### [facility] [address] [facility], [address] ACA, IgG0.6 U/mLLow(10.0 - 40.0)[facility] ClinicComment on above:Performed By: #### CBC-4A, UA, ENA6, ACAX3, C3-C4, ESRCRP, CCP #### [facility] [facility], [address] ACA, IgM4.6 U/mLLow(10.0 - 40.0)[facility] ClinicComment on above:Performed By: #### CBC-4A, UA, ENA6, ACAX3, C3-C4, ESRCRP, CCP #### [facility] [address] [place], [place] [address] [facility], [address] CBC/ALB/ALT/AST/ALK/CRon 57-49-4162Vuszbgt [Mass/Vol]4.2 g/dLNormal(3.5 - 5.0)[facility] ClinicComment on above:Order Comment: FACILITY: [facility] [id number] By: #### CBC-4A, UA, ENA6, ACAX3, C3-C4, ESRCRP, CCP #### [facility] [facility], [address] ALK PHOS84 U/LNormal(38 - 126)[facility] ClinicComment on above:Order Comment: FACILITY: [facility] [id number] By: #### CBC-4A, UA, ENA6, ACAX3, C3-C4, ESRCRP, CCP #### [facility] [address] [place], [address] ALT [Catalytic activity/Vol]20 U/LNormal(1 - 35)[facility] ClinicComment on above:Order Comment: FACILITY: [facility] [id number] By: #### CBC-4A, UA, ENA6, ACAX3, C3-C4, ESRCRP, CCP #### [facility] [address] [place], [address] AST [Catalytic activity/Vol]25 U/LNormal(15 - 46)[facility] ClinicComment on above:Order Comment: FACILITY: [facility] [id number] By: #### CBC-4A, UA, ENA6, ACAX3, C3-C4, ESRCRP, CCP #### [facility] [address] [place], [address] Creatinine [Mass/Vol]0.56 mg/dLNormal(0.52 - 1.04)[facility] ClinicComment on above:Order Comment: FACILITY: [facility] [id number] By: #### CBC-4A, UA, ENA6, ACAX3, C3-C4, ESRCRP, CCP #### [facility] [address] [place], [address] GFR by CKD-OBN023.6 ML/M1.7Normal(60.0)[facility] Comment on above:Order Comment: FACILITY: [facility] [id number] By: #### CBC-4A, UA, ENA6, ACAX3, C3-C4, ESRCRP, CCP #### [facility] [address] [place], [id number] Hematocrit (Bld) [Volume fraction]38.3 %Normal(37.0 - 47.0)[facility] ClinicComment on above:Order Comment: FACILITY: [facility] [place] [id number] By: #### CBC-4A, UA, ENA6, ACAX3, C3-C4, ESRCRP, CCP #### [facility] [facility], [id number] Hemoglobin (Bld) [Mass/Vol]13.1 g/dLNormal(12.0 - 16.0) [facility] ClinicComment on above:Order Comment: FACILITY: [facility] [place] [id number] By: #### CBC-4A, UA, ENA6, ACAX3, C3-C4, ESRCRP, CCP #### [facility] [address] [facility], [id number] MCH (RBC) [Entitic mass]31.9 pgNormal(27.0 - 33.0)[facility] ClinicComment on above:Order Comment: FACILITY: [facility] [place] [id number] By: #### CBC-4A, UA, ENA6, ACAX3, C3-C4, ESRCRP, CCP #### [facility] [address] [facility], [id number] MCHC (RBC) [Mass/Vol]34.2 g/dLNormal(30.0 - 37.0)[facility] ClinicComment on above:Order Comment: FACILITY: [facility] [place] [id number] By: #### CBC-4A, UA, ENA6, ACAX3, C3-C4, ESRCRP, CCP #### [facility] [facility], [id number] MCV (RBC) [Entitic vol]93.2 fLNormal(81.0 - 99.0)[facility] ClinicComment on above:Order Comment: FACILITY: [facility] [id number] By: #### CBC-4A, UA, ENA6, ACAX3, C3-C4, ESRCRP, CCP #### [facility] [address] [facility], [address] PLT358 x10^3ulNormal(130 - 400)[facility] ClinicComment on above:Order Comment: FACILITY: [facility] [place] [id number] By: #### CBC-4A, UA, ENA6, ACAX3, C3-C4, ESRCRP, CCP #### [facility] [address] [place], [place] [address] [facility], [address] RBC4.11 x10^6ulLow(4.20 - 5.40)[facility] ClinicComment on above:Order Comment: FACILITY: [facility] [place] [id number] By: #### CBC-4A, UA, ENA6, ACAX3, C3-C4, ESRCRP, CCP #### [facility] [address] [place], [place] [address]or [address] [facility], [address] WBC5.80 x10^3ulNormal(3.80 - 10.60)[facility] ClinicComment on above:Order Comment: FACILITY: [facility] [place] [id number] By: #### CBC-4A, UA, ENA6, ACAX3, C3-C4, ESRCRP, CCP #### [facility] [address] [facility], [address] SED RATE - CRPon 79-58-1814AHE EXTENDED RANGE3.04 MG/L Normal(0.00 - 5.00)[facility] ClinicComment on above:Performed By: #### CBC-4A, UA, ENA6, ACAX3, C3-C4, ESRCRP, CCP #### [facility] [address] [facility], [address] SED RATE WEST.5 MM/HRNormal(0 - 25)[facility] ClinicComment on above:Performed By: #### CBC-4A, UA, ENA6, ACAX3, C3-C4, ESRCRP, CCP #### [facility] [address] [place], [address] URINALYSIS, COMPLETEon [id number] (NONE - NEG)[facility] ClinicComment on above:Performed By: #### CBC-4A, UA, ENA6, ACAX3, C3-C4, ESRCRP, CCP #### [facility] [address] [place], [address] BACTERIAFEWNormal(NONE - OCC)[facility] ClinicComment on above:Performed By: #### CBC-4A, UA, ENA6, ACAX3, C3-C4, ESRCRP, CCP #### [facility] [address] [place], [address] Bilirubin Ql (U)NegativeNormal(NEG)[facility] ClinicComment on above:Performed By: #### CBC-4A, UA, ENA6, ACAX3, C3-C4, ESRCRP, CCP #### [facility] [address] [place], [address] CHARACTERHAZYNormal(CLEAR - HAZY)[facility] ClinicComment on above:Performed By: #### CBC-4A, UA, ENA6, ACAX3, C3-C4, ESRCRP, CCP #### [facility] [address] [place], [address] Color (U)P YELNormal(P YEL - L AMB)[facility] ClinicComment on above:Performed By: #### CBC-4A, UA, ENA6, ACAX3, C3-C4, ESRCRP, CCP #### [facility] [address] [place], [address] Glucose Ql (U)NegativeNormal(NEG)[facility] ClinicComment on above:Performed By: #### CBC-4A, UA, ENA6, ACAX3, C3-C4, ESRCRP, CCP #### [facility] [address] [facility], [address] Ketones Ql (U)NegativeNormal(NEG)[facility] ClinicComment on above:Performed By: #### CBC-4A, UA, ENA6, ACAX3, C3-C4, ESRCRP, CCP #### [facility] [address] [facility], [address] LE[place]. ESTERASENegativeNormal(NEG)[facility] ClinicComment on above:Performed By: #### CBC-4A, UA, ENA6, ACAX3, C3-C4, ESRCRP, CCP #### [facility] [address] [facility], [address] Mucus Ql (Urine sed)OCCNormal(NONE - OCC)[facility] Comment on above:Performed By: #### CBC-4A, UA, ENA6, ACAX3, C3-C4, ESRCRP, CCP #### [facility] [address] [facility], [address] Nitrite Ql (U)NegativeNormal(NEG)[facility] ClinicComment on above:Performed By: #### CBC-4A, UA, ENA6, ACAX3, C3-C4, ESRCRP, CCP #### [facility] [address] [facility], [address] OCCULT BLD.SMALLHigh(NEG)[facility] ClinicComment on above: Performed By: #### CBC-4A, UA, ENA6, ACAX3, C3-C4, ESRCRP, CCP #### [facility] [address] [facility], [address] pH (U)5.5 [pH]Normal(5.0 - 9.0)[facility] ClinicComment on above:Performed By: #### CBC-4A, UA, ENA6, ACAX3, C3-C4, ESRCRP, CCP #### [facility] [address] [facility], [address] SP. GRAVITY1.021Normal(1.001 - 1.035)[facility] Comment on above:Performed By: #### CBC-4A, UA, ENA6, ACAX3, C3-C4, ESRCRP, CCP #### [facility] [address] [facility], [address] SQUAMOUS EPIOCCNormal(NONE - OCC)[facility] ClinicComment on above:Performed By: #### CBC-4A, UA, ENA6, ACAX3, C3-C4, ESRCRP, CCP #### [facility] [address] [facility], [address] UR. RBC6-10High(0 - 2)[facility] ClinicComment on above: Performed By: #### CBC-4A, UA, ENA6, ACAX3, C3-C4, ESRCRP, CCP #### [facility] [address] [facility], [address] UR. WBC0-4Normal(0 - 4)[facility] ClinicComment on above: Performed By: #### CBC-4A, UA, ENA6, ACAX3, C3-C4, ESRCRP, CCP #### [facility] [address] [facility], [address] Urobilinogen (U) [Mass/Vol]0.2 mg/dLNormal(0.2 - <2.0) [facility] ClinicComment on above:Performed By: #### CBC-4A, UA, ENA6, ACAX3, C3-C4, ESRCRP, CCP #### [facility] [facility], [address] ANA SCREEN, IFA, W/REFL TITER AND PATTERNon [...] indicated. For additional information, please refer to http://education.[employer]/faq/PSL621 (This link is being provided for informational/ educational purposes only.)Performed By: #### [address], %20406, 809, 905, 6399, [address]14[address], 7600 #### [facility] [address], [address] [place] [address] Branch Service Leader: Leroy Recinos MD #### 528 #### [facility], [address] [place] [address] Branch Service Leader: Rachele Zhang MD,PhD,MBAANTINUCLEAR ANTIBODIES TITER AND PATTERNon 80-27-8429MWO PATTERNNuclear, SpeckledAbnormalQuest DiagnosticsComment on above:Result Comment: Speckled pattern is associated with mixed connective tissue disease (MCTD), systemic lupus erythematosus (SLE), Sjogren's syndrome, dermatomyositis, and systemic sclerosis/polymyositis overlap. AC-2,4,5,29: Speckled International Consensus on PANCHO Patterns (https://doi.org/10.1515/hsas-2715-5394)Performed By: #### 22632, %11276, 809, 905, 6399, 368[address], 7600 #### [facility] [address], [address] [place] [phone] Branch Service Leader: Leroy Recinos MD #### 528 #### [facility], [address] [place] [address] Branch Service Leader: Rachele Zhang MD,PhD,MBAANA TITER1:160HighQuest [facility] Comment on above:Result Comment: Reference Range <1:40 Negative 1:40-1:80 Low Antibody Level >1:80 Elevated Antibody LevelPerformed By: #### 83333, %25016, 809, 905, 6399, 43267, 7600 #### [facility] [place] [address], [address] [place] [address] Branch Service Leader: Leroy Recinos MD #### 528 #### [facility], [address] [place], [place] [address] Branch Service Leader: Rachele Zhang MD,PhD,MBACBC (INCLUDES DIFF/PLT)on 05-12-2024 Basophils (Bld) [#/Vol]0.041 10*3/uLNormal0-200Quest DiagnosticsComment on above:Performed By: #### [address], %14562, 809, 905, 6399, [address]115, 7600 #### [facility] [place] [address] [address] [place] [address] Branch Service Leader: Leroy Recinos MD #### 528 #### [facility], [address] [place] [address] Branch Service Leader: Rachele Zhang MD,PhD,MBABasophils/100 WBC (Bld)0.7 %Normal Quest DiagnosticsComment on above:Performed By: #### [id number], %69737, 809, 905, 6399, 69549, 7600 #### [facility] [place] [address] [address] , [address] [place] [address] Branch Service Leader: Leroy Recinos MD #### 528 #### [facility], [facility] [place] [address] Branch Service Leader: Rachele Zhang MD,PhD,MBAEosinophils (Bld) [#/Vol]0.071 10*3/pBGqjnlx00-729Spysq DiagnosticsComment on above:Performed By: #### [id number], %53189, 809, 905, 6399, 69474, 7600 #### [facility] [address], [address] [place] [address] Branch Service Leader: Leroy Recinos MD #### 528 #### [facility], [address] [place] [address] Branch Service Leader: Rachele Zhang MD,PhD,MBAEosinophils/100 WBC (Bld)1.2 %Normal Quest DiagnosticsComment on above:Performed By: #### 09580, %11475, 809, 905, 6399, 51414, 7600 #### [facility] [address], [address] [place] [address] Branch Service Leader: Leroy Recinos MD #### 528 #### [facility], [address] [place] [address] Branch Service Leader: Rachele Zhang MD,PhD,MBAErythrocyte distribution width (RBC) [Ratio]11.4 %Hlygws73.0-15.0Quest DiagnosticsComment on above:Performed By: #### 71537, %33036, 809, 905, 6399, 32031, 7600 #### [facility] [address], [address] [place] [address] Branch Service Leader: Leroy Recinos MD #### 528 #### [facility], [address] [place] [address] Branch Service Leader: Rachele Zhang MD,PhD,MBAHematocrit (Bld) [Volume fraction] 41.8 %Muthuc61.0-45.0Quest DiagnosticsComment on above:Performed By: #### 02203, %48305, 809, 905, 6399, 44167, 7600 #### [facility] [address], [address] [place] [address] Branch Service Leader: Leroy Recinos MD #### 528 #### [facility], [facility] [place] [address] Branch Service Leader: Rachele Zhang MD,PhD,MBAHemoglobin (Bld) [Mass/Vol]14.2 g/dL Uqqpen85.7-15.5Quest DiagnosticsComment on above:Performed By: #### 47861, %57770, 809, 905, 6399, 02374, 7600 #### [facility] [address], [address] [place] [address] Branch Service Leader: Leroy Recinos MD #### 528 #### [facility], [facility] [place] [address] Branch Service Leader: Rachele Zhang MD,PhD,MBALymphocytes (Bld) [#/Vol]1.782 10*3/aHMhbrqq207-9576Goxfb DiagnosticsComment on above:Performed By: #### 85472, %15355, 809, 905, 6399, 06351, 7600 #### [facility] [address], [address] [place] [address] Branch Service Leader: Leroy Recinos MD #### 528 #### [facility], [address] [place] [address] Branch Service Leader: Rachele Zhang MD,PhD,MBALymphocytes/100 WBC (Bld)30.2 %Normal [facility]osticsComment on above:Performed By: #### 30252, %05270, 809, 905, 6399, 29277, 7600 #### [facility] [address], [address] [place] [address] Branch Service Leader: Leroy Recinos MD #### 528 #### [facility], [address] [place] [address] Branch Service Leader: Rachele Zhang MD,PhD,MBMONIKACH (RBC) [Entitic mass]31.1 pgNormal 27.0-33.0[facility] DiagnosticsComment on above:Performed By: #### 13777, %96628, 809, 905, 6399, 78155, 7600 #### [facility] [address], [address] [place], [place] [address] Branch Service Leader: Leroy Recinos MD #### 528 #### [facility], [address] [place] [address] Branch Service Leader: Rachele Zhang MD,PhD,MBMONIKACHC (RBC) [Mass/Vol]34.0 g/dLNormal 32.0-36.0[facility] DiagnosticsComment on above:Result Comment: For adults, a slight decrease in the calculated MCHC value (in the range of 30 to 32 g/dL) is most likely not clinically significant; however, it should be interpreted with caution in correlation with other red cell parameters and the patient's clinical condition.Performed By: #### 08040, %83561, 809, 905, 6399, 69509, 7600 #### [facility] [address], [address] [place], [place] [address] Branch Service Leader: Leroy Recinos MD #### 528 #### [facility], [address] [place] [address] Branch Service Leader: Rachele Zhang MD,PhD,MBATA (RBC) [Entitic vol]91.7 fLNormal 80.0-100.0[facility] DiagnosticsComment on above:Performed By: #### 08501, %39690, 809, 905, 6399, 05464, 7600 #### [facility] [address], [address] [place] [address] Branch Service Leader: Leroy Recinos MD #### 528 #### [facility], [address] [place] [address] Branch Service Leader: Rachele Zhang MD,PhD,MBAMonocytes (Bld) [#/Vol]0.431 10*3/uL Qkmdjw504-892Wjroc DiagnosticsComment on above:Performed By: #### 94619, %70628, 809, 905, 6399, 85603, 7600 #### [facility] [address], [address] [place] [address] Branch Service Leader: Leroy Recinos MD #### 528 #### [facility], [facility] [place] [address] Branch Service Leader: Rachele Zhang MD,PhD,MBAMonocytes/100 WBC (Bld)7.3 %Normal [facility]osticsComment on above:Performed By: #### 42807, %26908, 809, 905, 6399, 37180, 7600 #### [facility] [address], [address] [place] [address] Branch Service Leader: Leroy Recinos MD #### 528 #### [facility], [facility] [place] [address] Branch Service Leader: Rachele Zhang MD,PhD,MBANeutrophils (Bld) [#/Vol]3.575 10*3/cTQncrho4353-4359Alxhq DiagnosticsComment on above:Performed By: #### 97170, %75412, 809, 905, 6399, 40751, 7600 #### [facility] [address], [address] [place] [address] Branch Service Leader: Leroy Recinos MD #### 528 #### [facility], [address] [place] [address] Branch Service Leader: Rachele Zhang MD,PhD,MBANeutrophils/100 WBC (Bld)60.6 %Normal [facility]osticsComment on above:Performed By: #### 31558, %95261, 809, 905, 6399, 24173, 7600 #### [facility] [address], [address] [place] [address] Branch Service Leader: Leroy Recinos MD #### 528 #### [facility], [address] [place] [address] Branch Service Leader: Rachele Zhang MD,PhD,MBAPlatelet mean volume (Bld) [Entitic vol]8.7 fLNormal7.5-12.5Quest DiagnosticsComment on above:Performed By: #### 01590, %15663, 809, 905, 6399, 29889, 7600 #### [facility] [address], [address] [place] [address] Branch Service Leader: Leroy Recinos MD #### 528 #### [facility], [address] [place] [address] Branch Service Leader: Rachele Zhang MD,PhD,MBAPlatelets (Bld) [#/Vol]393 10*3/uL Kflful660-215Syrjg DiagnosticsComment on above:Performed By: #### 89099, %70575, 809, 905, 6399, 33556, 7600 #### [facility] [address], [address] [place] [address] Branch Service Leader: Leroy Recinos MD #### 528 #### [facility], [address] [place] [address] Branch Service Leader: Rachele Zhang MD,PhD,MBDIGNITY HEALTH [facility] ([facility]) [#/Vol]4.56 10*6/uLNormal 3.80-5.10Quest DiagnosticsComment on above:Performed By: #### 99876, %39350, 809, 905, 6399, 01566, 7600 #### [facility] [place] [address] , [address] [place] [address] Branch Service Leader: Leroy Recinos MD #### 528 #### [facility], [address] [address] [address] Branch Service Leader: Rachele Zhang MD,PhD,MBASCENSION PROVID[facility] ([facility]) [#/Vol]5.9 10*3/uLNormal 3.8-10.8Quest DiagnosticsComment on above:Performed By: #### 60084, %05685, 809, 905, 6399, 91630, 7600 #### [facility] of [place] [address] , [address] [place] [address] Branch Service Leader: Leroy Recinos MD #### 528 #### [facility], [address] [address] [address] Branch Service Leader: Rachele Zhang MD,PhD,MBHAVEN BEHAVIORAL HOSPITAL OF EASTERN PENNSYLVANIAREHENSIVE METABOLIC PANELon 43-82-8333Zrmxhop [Mass/Vol]4.1 g/dLNormal3.6-5.1Quest DiagnosticsComment on above:Performed By: #### 91786, %20853, 809, 905, 6399, 13006, 7600 #### [facility] [place] [address] , [address] [place] [address] Branch Service Leader: Leroy Recinos MD #### 528 #### [facility], [address] [address] [address] Branch Service Leader: Rachele Zhang MD,PhD,MBRICHARDlbumin/Globulin [Mass ratio]1.5 {ratio}Normal1.0-2.5Quest DiagnosticsComment on above:Performed By: #### 24010, %93595, 809, 905, 6399, 04716, 7600 #### [facility] [address], [address] [place] [address] Branch Service Leader: Leroy Recinos MD #### 528 #### [facility], [facility] [place] [phone] Branch Service Leader: Rachele Zhang MD,PhD,MBAALP [Catalytic activity/Vol]63 U/L Hqocue75-166Selxq DiagnosticsComment on above:Performed By: #### 06439, %83525, 809, 905, 6399, 62061, 7600 #### [facility] [address], [address] [place] [address] Branch Service Leader: Leroy Recinos MD #### 528 #### [facility], [address] [address] [place] [phone] Branch Service Leader: Rachele Zhang MD,PhD,MBAALT [Catalytic activity/Vol]15 U/L Normal6-29Quest DiagnosticsComment on above:Performed By: #### 60478, %68053, 809, 905, 6399, 48338, 7600 #### [facility] of [address], [address] [place] [address] Branch Service Leader: Leroy Recinos MD #### 528 #### [facility], [address] [place], [place] Branch Service Leader: Rachele Zhang MD,PhD,MBAAST [Catalytic activity/Vol]15 U/L Vudipr38-24Bxrjo DiagnosticsComment on above:Performed By: #### 15092, %55383, 809, 905, 6399, 68345, 7600 #### [facility] [address], [address] [place], [place] [address] Branch Service Leader: Leroy Recinos MD #### 528 #### [facility], [address] [address] [place] [phone] Branch Service Leader: Rachele Zhang MD,PhD,MBABilirubin [Mass/Vol]0.5 mg/dLNormal 0.2-1.2[facility] DiagnosticsComment on above:Performed By: #### 26783, %35622, 809, 905, 6399, 53412, 7600 #### [facility] [address], [address] [place], [place] [address] Branch Service Leader: Leroy Recinos MD #### 528 #### [facility], [address] [place] [address] Branch Service Leader: Rachele Zhang MD,PhD,MBABUN/CREATININE RATIOSEE NOTE:Normal 6-22Quest DiagnosticsComment on above:Result Comment: Not Reported: BUN and Creatinine are within reference range.Performed By: #### 49847, %45889, 809, 905, 6399, 66983, 7600 #### [facility] [address], [address] [place] [address] Branch Service Leader: Leroy Recinos MD #### 528 #### [facility], [address] [address] [place] [phone] Branch Service Leader: Rachele Zhang MD,PhD,MBACalcium [Mass/Vol]10.3 mg/dLHigh 8.6-10.2[facility] DiagnosticsComment on above:Performed By: #### 53305, %63811, 809, 905, 6399, 98867, 7600 #### [facility] [address], [address] [place] [address] Branch Service Leader: Leroy Recinos MD #### 528 #### [facility], [address] [place] [address] Branch Service Leader: Rachele Zhang MD,PhD,MBAChloride [Moles/Vol]102 mmol/LNormal 98-110Quest DiagnosticsComment on above:Performed By: #### 82827, %93648, 809, 905, 6399, 21797, 7600 #### [facility] of [place] [address], [address] [place] [address] Branch Service Leader: Leroy Recinos MD #### 528 #### [facility], [address] [place] [address] Branch Service Leader: Rachele Zhang MD,PhD,MBACO2 [Moles/Vol]28 mmol/PFlplwz15-81 [facility]osticsComment on above:Performed By: #### 98562, %53571, 809, 905, 6399, 45112, 7600 #### [facility] of [place] [address] , [address] [place] [address] Branch Service Leader: Leroy Recinos MD #### 528 #### [facility], [facility] [place] [address] Branch Service Leader: Rachele Zhang MD,PhD,MBACreatinine [Mass/Vol]0.58 mg/dLNormal 0.50-0.99Quest DiagnosticsComment on above:Performed By: #### 40211, %66188, 809, 905, 6399, 54283, 7600 #### [facility] [address], [address] [place] [address] Branch Service Leader: Leroy Recinos MD #### 528 #### [facility], [address] [place] [address] Branch Service Leader: Rachele Zhang MD,PhD,MBAGFR/1.73 sq M.predicted among non- blacks MDRD (S/P/Bld) [Vol rate/Area]114 mL/min/{1.73_m2}Normal> OR = 60Quest DiagnosticsComment on above:Performed By: #### 58031, %80529, 809, 905, 6399, 16041, 7600 #### [facility] [place] [address] [facility], [address] [place] [address] Branch Service Leader: Leroy Recinos MD #### 528 #### [facility]/[address] [address] Branch Service Leader: Rachele Zhang MD,PhD,MBAGlobulin (S) [Mass/Vol]2.7 g/dLNormal 1.9-3.7[facility] DiagnosticsComment on above:Performed By: #### 62631, %86397, 809, 905, 6399, 52496, 7600 #### [facility] [address], [address] [place] [address] Branch Service Leader: Leroy Recinos MD #### 528 #### [facility], [address] [place] [address] Branch Service Leader: Rachele Zhang MD,PhD,MBAGlucose [Mass/Vol]78 mg/qRJtcwll98-30 [facility]osticsComment on above:Result Comment: Fasting reference intervalPerformed By: #### 22519, %35793, 809, 905, 6399, 77779, 7600 #### [facility] [address], [address] [place] [address] Branch Service Leader: Leroy Recinos MD #### 528 #### [facility], [address] [place], [place] [address] Branch Service Leader: Rachele Zhang MD,PhD,MBAPotassium [Moles/Vol]3.9 mmol/LNormal 3.5-5.3[facility]osticsComment on above:Performed By: #### 84352, %31987, 809, 905, 6399, 36936, 7600 #### [facility] [place] [address] [address] , [address] [place] [address] Branch Service Leader: Leroy Recinos MD #### 528 #### [facility], [address] [place], [place] [address] Branch Service Leader: Rachele Zhang MD,PhD,MBAProtein [Mass/Vol]6.8 g/dLNormal 6.1-8.1[facility] DiagnosticsComment on above:Performed By: #### 50874, %04621, 809, 905, 6399, 87890, 7600 #### [facility] [address] , [address] [place] [address] Branch Service Leader: Leroy Recinos MD #### 528 #### [facility], [address] [place] [address] Branch Service Leader: Rachele Zhang MD,PhD,MBASodium [Moles/Vol]138 mmol/LNormal 135-146Quest DiagnosticsComment on above:Performed By: #### 79289, %39954, 809, 905, 6399, 35076, 7600 #### [facility] [place] [address] [address] , [address] [place] [address] Branch Service Leader: Leroy Recinos MD #### 528 #### [facility], [address] [place], [place] [address] Branch Service Leader: Rachele Zhang MD,PhD,EDIErelenka nitrogen [Mass/Vol]8 mg/dLNormal 7-25Quest DiagnosticsComment on above:Performed By: #### 97683, %03081, 809, 905, 6399, 94730, 7600 #### [facility] of [address], [address] [place] [address] Branch Service Leader: Leroy Recinos MD #### 528 #### [facility], [address] [place] [address] Branch Service Leader: Rachele Zhang MD,PhD,CORRIELA-B27 ANTIGENon 51-53-4813AUE-B27 ANTIGENNegativeNormalNEGATIVEQuest DiagnosticsComment on above:Performed By: #### 21929, %53659, 809, 905, 6399, 71443, 7600 #### [facility] of [address], [address] [place] [address] Branch Service Leader: Leroy Recinos MD #### 528 #### [facility], [address] [place] [address] Branch Service Leader: Rachele Zhang MD,PhD,MBALIPID PANEL, STANDARDon 05-12-2024 Cholesterol [Mass/Vol]160 mg/dLNormal<200Quest DiagnosticsComment on above:Order Comment: FASTING:YES FASTING: YESPerformed By: #### 52984, %17705, 809, 905, 6399, 90747, 7600 #### [facility] of [address], [address] [place] [address] Branch Service Leader: Leroy Recinos MD #### 528 #### [facility], [address] [place] [address] Branch Service Leader: Rachele Zhang MD,PhD,MBACholesterol in HDL [Mass/Vol]53 mg/dL Normal> OR = 50Quest DiagnosticsComment on above:Order Comment: FASTING:YES FASTING: YESPerformed By: #### 77856, %52577, 809, 905, 6399, 80979, 7600 #### [facility] [address], [address] [place] [address] Branch Service Leader: Leroy Recinos MD #### 528 #### [facility], [address] [place] [address] Branch Service Leader: Rachele Zhang MD,PhD,MBACholesterol in LDL [Mass/Vol]77 mg/dL [...] LDL-C. Manpreet LANTIGUA et al. TATUM. 2013;310(19): 8952-1616 (http://education.[employer].aisle411/faq/QXZ174)Performed By: #### 95383, %97004, 809, 905, 6399, 11493, 7600 #### [facility] [address], [address] [place] [address] Branch Service Leader: Leroy Recinos MD #### 528 #### [facility], [address] [place] [address] Branch Service Leader: Rachele Zhang MD,PhD,MBACholesterol.total/Cholesterol in HDL [Mass ratio]3.0 {ratio}Normal<5.0Quest DiagnosticsComment on above:Order Comment: FASTING:YES FASTING: YESPerformed By: #### 16171, %84782, 809, 905, 6399, 99624, 7600 #### [facility] [address], [address] [place] [address] Branch Service Leader: Leroy Recinos MD #### 528 #### [facility], [address] [place] [address] Branch Service Leader: Rachele Zhang MD,PhD,AISLINN HDL CSICTAYDZGS860 mg/dL (calc) Normal<130Quest DiagnosticsComment on above:Order Comment: FASTING:YES FASTING: YESResult Comment: For patients with diabetes plus 1 major ASCVD risk factor, treating to a non-HDL-C goal of <100 mg/dL (LDL-C of <70 mg/dL) is considered a therapeutic option.Performed By: #### 81088, %32188, 809, 905, 6399, 01093, 7600 #### [facility] [address], [address] [place] [address] Branch Service Leader: Leroy Recinos MD #### 528 #### [facility], [address] [place] [address] Branch Service Leader: Rachele Zhang MD,PhD,MBATriglyceride [Mass/Vol]200 mg/dLHigh <150Quest DiagnosticsComment on above:Order Comment: FASTING:YES FASTING: YESResult Comment: If a non-fasting specimen was collected, consider repeat triglyceride testing on a fasting specimen if clinically indicated. Shabbir et al. J. of Clin. Lipidol. 2015;9:129-169.Performed By: #### 69092, %87970, 809, 905, 6399, 23892, 7600 #### [facility] [address], [address] [place] [address] Branch Service Leader: Leroy Recinos MD #### 528 #### [facility], [address] [place] [address] Branch Service Leader: Rachele Zhang MD,PhD,DANIELAARABELID FACTORon 05-12-2024 RHEUMATOID FACTOR<10Normal<14Quest DiagnosticsComment on above:Performed By: #### 15237, %46350, 809, 905, 6399, 51563, 7600 #### [facility] [address], [address] [place] [address] Branch Service Leader: Leroy Recinos MD #### 528 #### [facility], [address] [place] [address] Branch Service Leader: Rachele Zhang MD,PhD,MBASED RATE BY MODIFIED WESTERGRENon [id number] RATE BY MODIFIED WESTERGREN2 mm/hNormal< OR = 20[facility] Comment on above:Performed By: #### 64015, %81930, 809, 905, 6399, 94802, 7600 #### [facility] [address], [address] [place] [address] Branch Service Leader: Leroy Recinos MD #### 528 #### [facility], [address] [place] [address] Branch Service Leader: Rachele Zhang MD,PhD,MBAURIC ACIDon 56-65-7250Vuslq [Mass/Vol]4.7 mg/dLNormal2.5-7.0Quest DiagnosticsComment on above:Result Comment: Therapeutic target for gout patients: <6.0 mg/dLPerformed By: #### 25298, %88903, 809, 905, 6399, 08955, 7600 #### [facility] [address], [address] [place] [address] Branch Service Leader: Leroy Recinos MD #### 528 #### [facility], [address] [place] [address] Branch Service Leader: Rachele Zhang MD,PhD,MBAVITAMIN D,25-OH,TOTAL,IAon 05-12-2024 VITAMIN D,25-OH,TOTAL,IA26 ng/ySXez36-206Verkh DiagnosticsComment on above: Result Comment: Vitamin D Status 25-OH Vitamin D: Deficiency: <20 ng/mL Insufficiency: 20 - 29 ng/mL Optimal: > or = 30 ng/mL For 25-OH Vitamin D testing on patients on D2-supplementation and patients for whom quantitation of D2 and D3 fractions is required, the QuestAssureD(TM) 25-OH VIT D, (D2,D3), LC/MS/MS is recommended: order code 86599 (patients >2yrs). See Note 1 Note 1 For additional information, please refer to http://education.[employer]/faq/LAN172 (This link is being provided for informational/ educational purposes only.)Performed By: #### 13617, %05890, 809, 905, 6399, 75340, 7600 #### [employer] [facility] [address] [facility], [address] [place] [address] Branch Service Leader: Leroy Recinos MD #### 528 #### [facility], [address] [place] [address] Branch Service Leader: Rachele Zhang MD,PhD,MBAXR CERVICAL SPINE 2-3 VIEWSon [id number] CERVICAL SPINE 2-3 VIEWSExam: XR CERVICAL SPINE [...] AvailableXR HIP 2 OR 3 VW LEFTon [id number] HIP 2 OR 3 VW LEFTExam: XR [...] AvailableXR HIP 2 OR 3 VW RIGHTon [id number] HIP 2 OR 3 VW RIGHTExam: XR [...] interpreting Radiologist.NormalNot AvailableXR LUMBAR SPINE 2-3 VIEWSon [id number] LUMBAR SPINE 2-3 VIEWSExam: XR LUMBAR SPINE [...] interpreting Radiologist.NormalNot AvailableXR SHOULDER 2+ VIEWS LEFTon [id number] SHOULDER 2+ VIEWS LEFTExam: XR SHOULDER 2+ [...] interpreting Radiologist.NormalNot AvailableXR SHOULDER 2+ VIEWS RIGHTon [id number] SHOULDER 2+ VIEWS RIGHTExam: XR SHOULDER 2+ [...] by the interpreting Radiologist.NormalNot AvailableNo Panel Informationon [id number] Community Memorial HospitalSurgical Pathology Reporton [id number] Pathology Report(NOTE) Path Number: [id number] -- Diagnosis -- A. ESOPHAGUS, MID, BIOPSY:-SQUAMOUS [...] in aggregate. Entirely 1cs. jj tm Gian Garza M.D./mj:10/09/2023 Microscopic Description A-D. Microscopic examination performed. Processing Lab: [place] [id number] Interpretation Performed at [place] [id number] SURGICAL PATHOLOGY CONSULTATION Patient Name: JELANI FREEMAN [facility] Rec: [id number] [facility] ANATOMIC PATHOLOGY [address] [place], [place] [address] [facility] Disease Panelon 10-02-2023 Gliadin Deam Pep IgA0.9 U/mLNormal<7.0[facility] HospitalComment on above: Result Comment: CELIAC INTERPRETATION <7.0 Negative 7.0-10.0 Equivocal >10.0 Positive units: U/mLPerformed By: #### CELP #### [employer] [address] [place] [id number] Assembly Repairer: David Blair Transglutam IgA0.3 U/mLNormal<7.0[facility]. Vincent HospitalComaspirus ontonagon hospital on above:Result Comment: CELIAC INTERPRETATION <7.0 Negative 7.0-10.0 Equivocal >10.0 Positive units: U/mLPerformed By: #### CELP #### [facility] [employer] [address] [place], [place] [id number] Assembly Repairer: Ruben Blair Pep IgG<0.4Normal<7.0St. [facility] HospitalComment on above:Result Comment: CELIAC INTERPRETATION <7.0 Negative 7.0-10.0 Equivocal >10.0 Positive units: U/mLPerformed By: #### CELP #### [facility] [address], [place] [id number] Assembly Repairer: JOSELITO Blaireliac Disease Panelon 44-71-7473OjI [Mass/Vol] 149 mg/fPIzkflw50-623Bsdtn Tiffin HospitalComment on above:Performed By: #### CELP #### [employer] [address], [place] [address] Assembly Repairer: Sonja Blair 56-77-0416NGlwsjyrt: Received: 08/04/23 Status: TATYANA Fletcher Num: [id number] Spec Type: Cytology Subm Dr: Rj Shah Tissues: A CYST FLUID (RT CYST WALL) Procedures: HE/2, Gross/Micro L4, Cyto Prepstain, PAPSTN Age/ Patient Sex Location Account Attending Physician Jelani Freeman 42/F LABELL [id number] Rj Shah SPEC NUM: RECD: 08/04/23 STATUS: TATYANA FLETCHER NUM: [id number] PETER: 08/01/[address]: Rj Shah ENTERED: 08/04/[address] [facility] DR: Jones,Lab SPEC TYPE: Cytology DEPT: S[place] WVPRATIBHA ENTERED BY: [id number] RECV BY: [id number] ORDERED: HE/2, Gross/Micro L4, Cyto Prepstain, PAPSTN [...] are prepared. 1 cell blocks are prepared. (CC/sd) [facility] Codes 44062, 32860 Specimen: [id number] Received: 08/04/23 Status: TATYANA Fletcher Num: [id number] Spec Type: Cytology Subm Dr: Rj Shah Tissues: A CYST FLUID (RT CYST WALL) Procedures: HE/2, Gross/Micro L4, Cyto Prepstain, PAPSTN Patient: Jelani Freeman [id number] (Continued) Signed (signature on file) Bre Duvall MD 08/05/23 0950[facility] HospitalLSpecimen: [id number] Received: 08/01/23 Status: TATYANA Fletcher Num: [id number] Spec Type: Surgical Subm Dr: Rj Shah Tissues: A Ovary - Cyst, Non-Neoplastic (OVARIAN CYST WALL RT) Procedures: HE/3, Gross/Micro L4 Age/ Patient Sex Location Account Attending Physician Jelani Freeman 42/F LABELL [id number] Rj Shah SPEC NUM: [id number] RECD: 08/01/23 STATUS: TATYANA FLETCHER NUM: [id number] PETER: 08/01/[address]: Rj Shah ENTERED: 08/01/[address] [facility] [address]: Jones,Lab SPEC TYPE: Surgical DEPT: SWEETIE [...] 0.5 cm. Sectioning reveals a patent lumen. [employer] sections are submitted in 2 cassettes as follows: A1 - Membranous tissues A2 - Fallopian tube Specimen: [id number] Received: 08/01/23 Status: MARÍAChandrakant Fletcher Num: [id number] Spec Type: Surgical Subm Dr: Rj Shah Tissues: A Ovary - Cyst, Non-Neoplastic (OVARIAN CYST WALL RT) Procedures: SANGITA/Julian, Gross/Micro L4 Patient: Jelani Freeman [id number] (Continued) Specimen: [id number] Received: 08/01/23 (Continued) Signed (signature on file) Britany Panda MD 08/04/23 1804 Specimen: [id number] Received: 08/01/23 Status: TATYANA Fletcher Num: [id number] Spec Type: Surgical Subm Dr: Rj Shah Tissues: A Ovary - Cyst, Non-Neoplastic (OVARIAN CYST WALL RT) Procedures: SANGITA/3 Gross/Micro L4 Patient: Jelani Freeman [id number] (Continued) Specimen: [id number] Received: 08/01/23 (Continued) CPT Codes 62948 Specimen: [id number] Received: 08/01/23 Status: TATYANA Fletcher Num: [id number] Spec Type: Surgical Subm Dr: Rj Shah Tissues: A Ovary - Cyst, Non-Neoplastic (OVARIAN CYST WALL RT) Procedures: HE/3, Gross/Micro L4 Patient: Jelani Freeman [id number] (Continued) Signed (signature on file) Britany Panda MD 08/04/[address] [place], [place] [address]EC 12-LEADon 16-57[place] [address] Electrocardiograph Report Signed Patient: JELANI FREEMAN MR#: [id number] : 1980 Acct:[id number] Age/Sex: 42 / F ADM Date: 07/25/23 Loc: [facility] Attending Dr: Rj Shah D.O. Ordering Physician: Rj Shah D.O. 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 Signed By: 07/26/23 0747 DD/ 1110 TD/TT: Size Marker:Angel Munson MD - 07/26/[address] [address] Electrocardiograph Report Signed Patient: JELANI FREEMAN MR#: [id number] : 1980 Acct:[id number] Age/Sex: 42 / F ADM Date: 07/25/23 Loc: PST Attending Dr: Rj Shah D.O. Ordering Physician: Rj Shah D.O. 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 Signed By: 07/26/23 0747 DD/ 1110 TD/TT: Size Marker: DEE DEE Damian 12-LEADOrdered By: Radiologist Radiology on 67-11-1552SYBHSaint Joseph Hospital West Work Phone: ECG 12-LEADon 56-15-5090Hnacrgypf Study observation (narrative)DEE DEE [facility] with Auto Differentialon 15-18-2539Qjkiljzjg (Bld) [#/Vol]0.03 10*3/uLBON SECOURS MERCY HEALTHBasophils/100 WBC (Bld)0 %0 - 2 %[facility] HEALTHEosinophils (Bld) [#/Vol]0.11 10*3/uLBON SECOURS MERCY HEALTHEosinophils/100 WBC (Bld)2 %0 - 5 %[facility] MERCY HEALTHErythrocyte distribution width (RBC) [Ratio]12.3 %12.1 - 15.2 %[facility] Hematocrit (Bld) [Volume fraction]40.0 %36.0 - 46.0 %[facility] Hemoglobin (Bld) [Mass/Vol]13.4 g/dL12.0 - 16.0 g/dLBON [facility] Immature granulocytes (Bld) [#/Vol]0.02 10*3/uLBON [facility] MEDICAL CENTERImmature granulocytes/100 WBC (Bld)0 %0 - 5 %B[facility] MCKITRICK HOSPITALLymphocytes/100 WBC (Bld)32 %15 - 40 %[facility] HOSPITALLymphocytes/100 WBC (Bld)2.24 %[facility]PITALH (RBC) [Entitic mass]29.8 pg26.0 - 34.[address] [facility]OSPITALHC (RBC) [Mass/Vol]33.5 g/dL31.0 - 37.0 g/dLBON MER[facility] HEALTH ST. JO[facility] WARREN HOSPITALV (RBC) [Entitic vol]88.9 fL80.0 - 100.0 fLWELLMONT [facility] Monocytes/100 WBC (Bld)7 %4 - 8 %[facility]OSPITALMonocytes/100 WBC (Bld) 0.46 %[facility] HOSPITALNeutrophils/100 WBC (Bld)59 %47 - 75 %[facility] HOSPITALPlatelet mean volume (Bld) [Entitic vol]8.3 fL6.0 - 12.0 fLWELLMONT LONESOME PINE MT. VIEW HOSPITALPlatelets (Bld) [#/Vol]341 10*3/uLBON [facility] RBC (Bld) [#/Vol]4.50 10*6/uL4.00 - 5.20 m/uLBON MCKITRICK HOSPITALSegmented neutrophils/100 WBC (Bld)4.18 %[facility] HOSPITALWBC other (Bld) [#/Vol] 7.0BON [facility]ENTEROURS [facility] H[facility]PITAL MEDICAL CENTERCBC with Diffon 06-13-2023 Abs. Basophil0.03 k/uLNormal0.00-0.20Mercy Homero HospitalComment on above: Performed By: #### CP, CDP #### [facility] [address] [place] [address] Assembly Repairer: Fidel Shultz.Imm.Granulocyte0.02 k/uLNormal0.00-0.30[facility] EastComaspirus ontonagon hospital on above:Performed By: #### CP, CDP #### [facility] [address] [place] [address] Assembly Repairer: Fidel Shultz.Neutrophil (Seg)4.18 k/uLNormal2.5-7.0[facility] EastComment on above:Performed By: #### CP, CDP #### [facility] [address] [place] [address] Assembly Repairer: Angel Valdes MDBasophils/100 WBC (Bld)0 %Normal0-2MOhioHealthComment on above:Performed By: #### CP, CDP #### [facility] [address] [place] [address] Assembly Repairer: Angel Valdes MDEosinophils (Bld) [#/Vol]0.11 10*3/uLNormal 0.00-0.40[place] on above:Performed By: #### CP, CDP #### [facility] [address] [place] [address] Assembly Repairer: MAIN Shultzosinophils/100 WBC (Bld)2 %Normal0-5[place] on above:Performed By: #### CP, CDP #### [facility] [address] [place] [address] Assembly Repairer: Angel Valdes MDErythrocyte distribution width (RBC) [Ratio]12.3 % Rocwam57.1-15.2MOhioHealthComment on above:Performed By: #### CP, CDP #### [facility] [address] [place], [place] [address] Assembly Repairer: Angel Valdes MDHematocrit (Bld) [Volume fraction]40.0 %Normal 36.0-46.0Glenbeigh Hospitalment on above:Performed By: #### CP, CDP #### [facility] [address] [place] [id number] Assembly Repairer: Angel Valdes MDHemoglobin (Bld) [Mass/Vol]13.4 g/dLNormal 12.0-16.0[facility] EastComment on above:Performed By: #### CP, CDP #### [facility] [address] [place] [id number] Assembly Repairer: Angel Valdes MDImmature granulocytes/100 WBC (Bld)0 %Normal0-5 [place] on above:Performed By: #### CP, CDP #### [facility] [address] [place] [id number] Assembly Repairer: Angel Valdes MDLymphocytes (Bld) [#/Vol]2.24 10*3/uLNormal 1.00-4.80[facility] EastComment on above:Performed By: #### CP, CDP #### [facility] [address] [place] [id number] Assembly Repairer: Ita Shultzmphocytes/100 WBC (Bld)32 %Teqnlh48-22DxefzCenterville on above:Performed By: #### CP, CDP #### [facility] [address] [place] [id number] Assembly Repairer: BARTOLO ShultzCH (RBC) [Entitic mass]29.8 duCbgego47.0-34.0 [facility] EastComment on above:Performed By: #### CP, CDP #### [facility] [address] [place] [address] Assembly Repairer: BARTOLO ShultzCHC (RBC) [Mass/Vol]33.5 g/uKYwfyhv95.0-37.0[facility] EastComment on above:Performed By: #### CP, CDP #### [facility] [address] [place] [id number] Assembly Repairer: BARTOLO ShultzCV (RBC) [Entitic vol]88.9 nPYgqkrn82.0-100.0 [facility] EastComment on above:Performed By: #### CP, CDP #### [facility] [address] [place] [id number] Assembly Repairer: BARTOLO Shultzonocytes (Bld) [#/Vol]0.46 10*3/uLNormal0.00-1.00 [facility] EastComaspirus ontonagon hospital on above:Performed By: #### CP, CDP #### [facility] [address] [place] [id number] Assembly Repairer: BARTOLO Shultzonocytes/100 WBC (Bld)7 %Normal4-8[facility] EastComment on above:Performed By: #### CP, CDP #### [facility] [address] [place] [address] Assembly Repairer: Lilibeth Shultzophil (Seg)59 %Ngtyld94-16HmzleRegency Hospital Cleveland EastComment on above:Performed By: #### CP, CDP #### [facility] [address] [place] [id number] Assembly Repairer: JAY Shultzlatelet mean volume (Bld) [Entitic vol]8.3 fL Normal6.0-12.0[facility] EastComment on above:Performed By: #### CP, CDP #### [facility] [address] [place], [place] [id number] Assembly Repairer: Jovanni Shultz (Bld) [#/Vol]341 10*3/dFMoulai376-067 [facility] EastComment on above:Performed By: #### CP, CDP #### [facility] [address] [place], [place] [id number] Assembly Repairer: GUERA ShultzBC (Bld) [#/Vol]4.50 10*6/uLNormal4.00-5.20[facility] EastComment on above:Performed By: #### CP, CDP #### [facility] [address] [place] [address] Assembly Repairer: RAQUEL Shultz (Bld) [#/Vol]7.0 10*3/uLNormal3.5-11.0[facility] EastComment on above:Performed By: #### CP, CDP #### [facility] [address] [place] [address] Assembly Repairer: JOSELITO Shultzomp Metabolic Profon 04-65-2931Bedocva [Mass/Vol] 4.2 g/dLNormal3.5-5.2MOhioHealthComment on above:Performed By: #### CP, CDP #### [facility] [address] [place] [address] Assembly Repairer: Brandyn Shultzline Phos75 U/QCcrkdb98-303XaitzRegency Hospital Cleveland EastComment on above:Performed By: #### CP, CDP #### [facility] [address] [place] [address] Assembly Repairer: Angel Valdes MDALT [Catalytic activity/Vol]16 U/LNormal5-33[facility] EastComment on above:Performed By: #### CP, CDP #### [facility] [address] [place] [id number] Assembly Repairer: Angel Valdes MDAnion gap [Moles/Vol]11 mmol/LNormal9-17[facility] EastComment on above:Performed By: #### CP, CDP #### [facility] [address] [place] [address] Assembly Repairer: Angel Valdes MDAST [Catalytic activity/Vol]15 U/LNormal<32MerCayuga Medical CenterComment on above:Performed By: #### CP, CDP #### [facility] [address] [place] [address] Assembly Repairer: Angel Valdes MDBilirubin [Mass/Vol]0.3 mg/dLNormal0.3-1.2MOhioHealthComment on above:Performed By: #### CP, CDP #### [facility] [address] [place] [address] Assembly Repairer: Angel Valdes MDBUN/CRE Ikhtc05Gxmcum3-38Bprdj [facility] Comment on above:Performed By: #### CP, CDP #### [facility] [address] [place] [address] Assembly Repairer: Angel Valdes MDCalcium [Mass/Vol]10.3 mg/dLNormal8.6-10.4[facility] EastComment on above:Performed By: #### CP, CDP #### [facility] [address] [place] [address] Assembly Repairer: Angel Valdes MDChloride [Moles/Vol]101 mmol/WDqspan72-124QpcxhRegency Hospital Cleveland EastComment on above:Performed By: #### CP, CDP #### [facility] [address] [place] [address] Assembly Repairer: Angel Valdes MDCO2 [Moles/Vol]25 mmol/RPhgiej67-32MwhpqRegency Hospital Cleveland EastComment on above:Performed By: #### CP, CDP #### [facility] [address] [place] [id number] Assembly Repairer: JOSELITO Shultzreatinine [Mass/Vol]0.7 mg/dLNormal0.5-0.9[place] on above:Performed By: #### CP, CDP #### [facility] [address] [place] [id number] Assembly Repairer: Angel Valdes MDGFR/1.73 sq M.predicted among non-blacks MDRD (S/P/Bld) [Vol rate/Area]mL/min/{1.73_m2}Normal>60[place] on above:Result Comment: These results are not [...] tubular secretion.Performed By: #### CP, CDP #### [facility] [address] [place] [address] Assembly Repairer: Angel Valdes MDGlucose [Mass/Vol]120 mg/zYLutb36-67PmemrOhioHealthComaspirus ontonagon hospital on above:Performed By: #### CP, CDP #### [facility] [address] [place] [id number] Assembly Repairer: JAY Shultzotassium [Moles/Vol]4.0 mmol/LNormal3.7-5.3Mohiohealth arthur g.h. b[facility], [facility], cancer centery Merit Health MadisonComaspirus ontonagon hospital on above:Performed By: #### CP, CDP #### [facility] [address] [place] [id number] Assembly Repairer: JAY Shultzrotein [Mass/Vol]7.4 g/dLNormal6.4-8.3Mercy Homero HospitalComment on above:Performed By: #### CP, CDP #### [facility] [address] [place], [place] [id number] Assembly Repairer: DIANA Shultzodium [Moles/Vol]137 mmol/LAtjelh631-208OuhzbRegency Hospital Cleveland EastComment on above:Performed By: #### CP, CDP #### [facility] [address] [place] [id number] Assembly Repairer: Angel Valdes MDUrea nitrogen [Mass/Vol]8 mg/dLNormal6-20[facility] EastComment on above:Performed By: #### CP, CDP #### [facility] [address] [place] [address] Assembly Repairer: JOSELITO Shultzomprehensive Metabolic Panelon 12-27-1040Mpieaod [Mass/Vol]4.2 g/dL3.5 - 5.2 g/dLBON SECBRENTWOOD HOSPITAL HEALTHALP [Catalytic activity/Vol]75 U/L35 - 104 U/LBON SECOU[facility] HOSPITALY HEALTHALT [Catalytic activity/Vol]16 U/L5 - 33 U/LBON [facility] MEDICAL CENTERAnion gap [Moles/Vol]11 mmol/L9 - 17 mmol/LBON [facility] HEALTHAST [Catalytic activity/Vol]15 U/L NINF - 32 U/LBON [facility] HEALTHBilirubin [Mass/Vol]0.3 mg/dL0.3 - 1.2 mg/dLBON [facility] HEALTHCalcium [Mass/Vol]10.3 mg/dL8.6 - 10.4 mg/dLBON SECOURS BROWN MEMORIAL HOSPITALY HEALTHChloride [Moles/Vol]101 mmol/L98 - 107 mmol/LBON SEC[facility] BR[facility] MEMORIAL HOSPITALY HEALTHCO2 [Moles/Vol]25 mmol/L20 - 31 mmol/LBON [facility] HEALTH Creatinine [Mass/Vol]0.7 mg/dL0.5 - 0.9 mg/dLBON SECOURS BROWN MEMORIAL HOSPITALY HEALTHGFR/1.73 sq M.predicted MDRD (S/P/Bld) [Vol rate/Area]- PINFBON MCKITRICK HOSPITALComment on above: These results are not intended [...] that affects renal tubular secretion. Glucose [Mass/Vol]120 mg/wZQsye46 - 99 mg/dLBON MCKITRICK HOSPITAL Interpretation and review of laboratory resultsAbnormalWELLMONT [facility] Potassium [Moles/Vol]4.0 mmol/L3.7 - 5.3 mmol/LBON MCKITRICK HOSPITALProtein [Mass/Vol]7.4 g/dL6.4 - 8.3 g/dLBON MCKITRICK HOSPITALSodium [Moles/Vol]137 mmol/L135 - 144 mmol/LBON MCKITRICK HOSPITALUrea nitrogen [Mass/Vol]8 mg/dL6 - 20 mg/dLBON MCKITRICK HOSPITALUrea nitrogen/Creatinine [Mass ratio]11 mg/mg9 - 20BON BLACK HILLS SURGERY CENTERAlanine aminotransferase [Enzymatic activity/volume] in Serum or PlasmaOrdered By: Surinder Del Castillo on 69-57-4608JAA [Catalytic activity/Vol]16 U/L7-52P[facility] Community HospitalAlbumin [Mass/volume] in Serum or Plasma by Bromocresol green (BCG) dye binding methoOrdered By: Surinder Del Castillo on 76-68-1731Gcwymbn BCG dye [Mass/Vol]4.3 g/dL3.5-5.7FCleveland Clinic Children's Hospital for RehabilitationAlkaline phosphatase [Enzymatic activity/volume] in Serum or PlasmaOrdered By: Surinder Del Castillo on 73-37-8736PZE [Catalytic activity/Vol]66 U/H50-236LaudjtmlmPike Community HospitalAspartate aminotransferase [Enzymatic activity/volume] in Serum or PlasmaOrdered By: Surinder Del Castillo on 40-56-6359TJX [Catalytic activity/Vol]16 U/Y94-94MhhdpyftqPike Community HospitalBasophils Auto (Bld) [#/Vol]Ordered By: Surinder Del Castillo on 12-24-2022 Basophils (Bld) [#/Vol]0.0 10*3/uL0.0-0.2FCleveland Clinic [facility]'s [facility] Rehabilitation Basophils/100 WBC Auto (Bld)Ordered By: Surinder Del Castillo on 56-04-2588Bommgdzot/100 WBC (Bld)0.5 %.P[facility] Community HospitalBilirubin.total [Mass/volume] in Serum or PlasmaOrdered By: Surinder Del Castillo on 40-67-8127Chdnmpgiv [Mass/Vol]0.3 mg/dL0.3-1.0[facility] HospitalCalcium [Mass/volume] in Serum or PlasmaOrdered By: Surinder Del Castillo on 48-22-5132Aitrmgq [Mass/Vol]11.0 mg/dL8.6-10.3 [facility] HospitalCarbon dioxide, total [Moles/volume] in Serum or PlasmaOrdered By: Surinder Del Castillo on 92-15-3341UR4 [Moles/Vol]29.3 mmol/L21.0-31.0 [facility] HospitalChloride [Moles/volume] in Serum or Plasma Ordered By: Surinder Del Castillo on 25-19-1499Gflnjzxp [Moles/Vol]105 mmol/L98-107 [facility] HospitalCholesterol [Mass/volume] in Serum or Plasma Ordered By: Surinder Del Castillo on 22-86-4309Phzlkkbrmsq [Mass/Vol]156 mg/tN475-901 [facility] HospitalComment on above:Chol less than 200 mg/dl low riskChol 201-239 mg/dl borderline riskChol 240 mg/dl and greater high risk Cholesterol in LDL Calc [Mass/Vol]Ordered By: Surinder Del Castillo on 12-24-2022 Cholesterol in LDL [Mass/Vol]48 mg/dL0-100[facility] Comment on above:LDL ATP III CLASSIFICATIONLDL less than 100 mg/dL OptimalLDL 100-129 mg/dL Near or above lzxnghbBGM448-812 mg/dL Borderline highLDL 160-189 mg/dL HighLDL greater than 189 mg/dL Very highCholesterol in VLDL Calc [Mass/Vol]Ordered By: Surinder Del Castillo on 50-97-9312Ercrrdeaqjf in VLDL [Mass/Vol]60 mg/dLPike Community HospitalCreatinine [Mass/volume] in Serum or PlasmaOrdered By: Surinder Del Castillo on 76-59-9182Kdqphjsnkh [Mass/Vol]0.74 mg/dL 0.60-1.20[facility] HospitalEmployee Comp Metabolic Panelon 55-65-1633Lzsrwsb [Mass/Vol]4.3 g/dLNormal3.5-5.7FCleveland Clinic Children's Hospital for RehabilitationComment on above:Performed By: #### PILLAR LIPID, PILLAR TSH, PILLAR CBC, PILLAR CMP #### [facility] [address] [place] [address] #### NICOTINE QUAL #### [facility] ,Albumin/Globulin [Mass ratio]1.7 {ratio}NormalPike Community Hospital Comment on above:Performed By: #### PILLAR LIPID, PILLAR TSH, PILLAR CBC, PILLAR CMP #### [facility] [address] [place] [address] [place] #### NICOTINE QUAL #### [facility] ,ALP [Catalytic activity/Vol]66 U/JQneakm92-997PhrhtzsayPike Community Hospital Comment on above:Performed By: #### PILLAR LIPID, PILLAR TSH, PILLAR CBC, PILLAR CMP #### [facility] [address] [place] [address] #### NICOTINE QUAL #### [facility] ,ALT [Catalytic activity/Vol]16 U/LNormal7-52[facility] Comment on above:Performed By: #### PILLAR LIPID, PILLAR TSH, PILLAR CBC, PILLAR CMP #### [facility] [address] [place] [address] [place] #### NICOTINE QUAL #### [facility] ,Anion gap [Moles/Vol]10.4 mmol/LNormal6.0-15.0[facility] Comment on above:Performed By: #### PILLAR LIPID, PILLAR TSH, PILLAR CBC, PILLAR CMP #### [facility] [address] [place] [address] [place] #### NICOTINE QUAL #### [facility] ,AST [Catalytic activity/Vol]16 U/SNtkcva12-60EqzyynpxiPike Community Hospital Comment on above:Performed By: #### PILLAR LIPID, PILLAR TSH, PILLAR CBC, PILLAR CMP #### [facility] [address] [place] [address] [place] #### NICOTINE QUAL #### [facility] ,Bilirubin [Mass/Vol]0.3 mg/dLNormal0.3-1.0[facility] Comment on above:Performed By: #### PILLAR LIPID, PILLAR TSH, PILLAR CBC, PILLAR CMP #### [facility] [address] [place] [address] #### NICOTINE QUAL #### [facility] ,Calcium [Mass/Vol]11.0 mg/dLHigh8.6-10.3FCleveland Clinic [facility] Rehabilitation Comment on above:Performed By: #### PILLAR LIPID, PILLAR TSH, PILLAR CBC, PILLAR CMP #### [facility] [address] [place] [address] #### NICOTINE QUAL #### [facility] ,Chloride [Moles/Vol]105 mmol/VZgwznn12-736MwrgtxvsiPike Community Hospital Comment on above:Performed By: #### PILLAR LIPID, PILLAR TSH, PILLAR CBC, PILLAR CMP #### [facility] [address] [place] [address] [place] #### NICOTINE QUAL #### [facility] ,CO2 [Moles/Vol]29.3 mmol/TMnfbof07.0-31.0[facility] Comment on above:Performed By: #### PILLAR LIPID, PILLAR TSH, PILLAR CBC, PILLAR CMP #### [facility] [address] [place] [address] [place] #### NICOTINE QUAL #### [facility] ,Creatinine [Mass/Vol]0.74 mg/dLNormal0.60-1.20[facility] Comment on above:Performed By: #### PILLAR LIPID, PILLAR TSH, PILLAR CBC, PILLAR CMP #### [facility] [address] [place] [address] [place] #### NICOTINE QUAL #### [facility] ,GFR/1.73 sq M.predicted MDRD (S/P/Bld) [Vol rate/Area]mL/min/{1.73_m2}Normal [facility] HospitalComment on above:Performed By: #### PILLAR LIPID, PILLAR TSH, PILLAR CBC, PILLAR CMP #### [facility] [address] [place] [address] #### NICOTINE QUAL #### [facility] ,Globulin (S) [Mass/Vol]2.5 g/dLNormalPike Community HospitalComment on above:Performed By: #### PILLAR LIPID, PILLAR TSH, PILLAR CBC, PILLAR CMP #### [facility] [address] [place] [address] [place] #### NICOTINE QUAL #### [facility] ,Glucose [Mass/Vol]84 mg/lHAkcyly54-543IvsjywgxfPike Community HospitalComment on above:Performed By: #### PILLAR LIPID, PILLAR TSH, PILLAR CBC, PILLAR CMP #### [facility] [address] [place] [address] [place] #### NICOTINE QUAL #### [facility] ,Potassium [Moles/Vol]3.7 mmol/LNormal3.5-5.1FCleveland Clinic [facility] Rehabilitation Comment on above:Performed By: #### PILLAR LIPID, PILLAR TSH, PILLAR CBC, PILLAR CMP #### [facility] [facility] [address] [place] [address] [place] #### NICOTINE QUAL #### [facility] ,Protein [Mass/Vol]6.8 g/dLNormal6.4-8.9P[facility] HospitalComment on above:Performed By: #### PILLAR LIPID, PILLAR TSH, PILLAR CBC, PILLAR CMP #### [facility] [address] [place] [address] #### NICOTINE QUAL #### [facility] ,Sodium [Moles/Vol]141 mmol/ZQeqtgw530-261LevjagpwlPike Community Hospital Comment on above:Performed By: #### PILLAR LIPID, PILLAR TSH, PILLAR CBC, PILLAR CMP #### [facility] [address] [place] [address] #### NICOTINE QUAL #### [facility] ,Urea nitrogen [Mass/Vol]13 mg/dLNormal7-25[facility] Comment on above:Performed By: #### PILLAR LIPID, PILLAR TSH, PILLAR CBC, PILLAR CMP #### [address] #### NICOTINE QUAL #### [facility] ,Employee Complete Blood Counton 18-77-2089Ofjxinilw (Bld) [#/Vol]0.0 10*3/uL Normal0.0-0.2FCleveland Clinic Children's Hospital for RehabilitationComment on above:Result Comment: PERFORMED BY: [place] [address] PATHOLOGIST SET ILLUSTRATOR LUCERO AREVALO M.D.Performed By: #### PILLAR LIPID, PILLAR TSH, PILLAR CBC, PILLAR CMP #### [address] #### NICOTINE QUAL #### [facility] ,Basophils/100 WBC (Bld)0.5 %Normal.P[facility] Community HospitalComment on above:Performed By: #### PILLAR LIPID, PILLAR TSH, PILLAR CBC, PILLAR CMP #### [address] #### NICOTINE QUAL #### [facility] ,Eosinophils (Bld) [#/Vol]0.1 10*3/uLNormal0.0-0.45P[facility] HospitalComment on above:Performed By: #### PILLAR LIPID, PILLAR TSH, PILLAR CBC, PILLAR CMP #### [address] #### NICOTINE QUAL #### [facility] ,Eosinophils/100 WBC (Bld)1.1 %Normal.[facility] Community HospitalComment on above:Performed By: #### PILLAR LIPID, PILLAR TSH, PILLAR CBC, PILLAR CMP #### [address] #### NICOTINE QUAL #### [facility] ,Erythrocyte distribution width (RBC) [Ratio]12.8 %Xtgbjc34.9-15.3FCleveland Clinic Children's Hospital for RehabilitationComment on above:Performed By: #### PILLAR LIPID, PILLAR TSH, PILLAR CBC, PILLAR CMP #### [place] [address] [place] #### NICOTINE QUAL #### [facility] ,Hematocrit (Bld) [Volume fraction]38.9 %Fzpglg56.0-46.4FCleveland Clinic Children's Hospital for RehabilitationComment on above:Performed By: #### PILLAR LIPID, PILLAR TSH, PILLAR CBC, PILLAR CMP #### [place] [address] [place] #### NICOTINE QUAL #### [facility] ,Hemoglobin (Bld) [Mass/Vol]13.2 g/fXOachmu04.8-15.4FCleveland Clinic Children's Hospital for RehabilitationComment on above:Performed By: #### PILLAR LIPID, PILLAR TSH, PILLAR CBC, PILLAR CMP #### [place] [address] [place] #### NICOTINE QUAL #### [facility] ,Lymphocytes (Bld) [#/Vol]2.2 10*3/uLNormal1.00-4.8P[facility] HospitalComment on above:Performed By: #### PILLAR LIPID, PILLAR TSH, PILLAR CBC, PILLAR CMP #### [address] #### NICOTINE QUAL #### [facility] ,Lymphocytes/100 WBC (Bld)30.4 %Normal.P[facility] Community HospitalComment on above:Performed By: #### PILLAR LIPID, PILLAR TSH, PILLAR CBC, PILLAR CMP #### [address] #### NICOTINE QUAL #### [facility] ,MCH (RBC) [Entitic mass]30.8 rsTqoifc40.7-34.3FC[facility] Comment on above:Performed By: #### PILLAR LIPID, PILLAR TSH, PILLAR CBC, PILLAR CMP #### [address] #### NICOTINE QUAL #### [facility] ,MCV (RBC) [Entitic vol]90.9 eMIlcaxk72-228JyqshtuviPike Community Hospital Comment on above:Performed By: #### PILLAR LIPID, PILLAR TSH, PILLAR CBC, PILLAR CMP #### [address] #### NICOTINE QUAL #### [facility] ,Mean Corpuscular HGB Conc33.9 g/sCBrcpzc15.0-35.0P[facility] Community HospitalComment on above:Performed By: #### PILLAR LIPID, PILLAR TSH, PILLAR CBC, PILLAR CMP #### [address] #### NICOTINE QUAL #### [facility] ,Monocytes (Bld) [#/Vol]0.7 10*3/uLNormal0.0-0.8P[facility] HospitalComment on above:Performed By: #### PILLAR LIPID, PILLAR TSH, PILLAR CBC, PILLAR CMP #### [facility] [address] [place] [address] [place] #### NICOTINE QUAL #### [facility] ,Monocytes/100 WBC (Bld)9.6 %Normal.P[facility] Community HospitalComment on above:Performed By: #### PILLAR LIPID, PILLAR TSH, PILLAR CBC, PILLAR CMP #### [facility] [address] [place] [address] [place] #### NICOTINE QUAL #### [facility] ,Neutrophils (Bld) [#/Vol]4.2 10*3/uLNormal1.8-7.7FCleveland Clinic Children[facility] Hospital for RehabilitationComment on above:Performed By: #### PILLAR LIPID, PILLAR TSH, PILLAR CBC, PILLAR CMP #### [address] #### NICOTINE QUAL #### [facility] ,Neutrophils/100 WBC (Bld)58.4 %Normal.P[facility] Community HospitalComment on above:Performed By: #### PILLAR LIPID, PILLAR TSH, PILLAR CBC, PILLAR CMP #### [facility] [address] [place] [address] [place] #### NICOTINE QUAL #### [facility] ,NRBC%0.2 /100{WBC}Normal0-0.5FCleveland Clinic Children's Hospital for RehabilitationComment on above: Performed By: #### PILLAR LIPID, PILLAR TSH, PILLAR CBC, PILLAR CMP #### [facility] [address] [place] [address] [place] #### NICOTINE QUAL #### [facility] ,Platelet mean volume (Bld) [Entitic vol]7.5 fLNormal6.3-10.7FCleveland Clinic Children's Hospital for RehabilitationComment on above:Performed By: #### PILLAR LIPID, PILLAR TSH, PILLAR CBC, PILLAR CMP #### [facility] [address] [place] [address] [place] #### NICOTINE QUAL #### [facility] ,Platelets (Bld) [#/Vol]404 10*3/zRXfmjln655-117XqzhmzakqPike Community HospitalComment on above:Performed By: #### PILLAR LIPID, PILLAR TSH, PILLAR CBC, PILLAR CMP #### [facility] [address] [place] [address] [place] #### NICOTINE QUAL #### [facility] ,RBC (Bld) [#/Vol]4.28 10*6/uLNormal3.60-5.00[facility] Comment on above:Performed By: #### PILLAR LIPID, PILLAR TSH, PILLAR CBC, PILLAR CMP #### [facility] [address] [place] [address] #### NICOTINE QUAL #### [facility] ,WBC (Bld) [#/Vol]7.2 10*3/uLNormal3.8-11.6FC[facility] Comment on above:Performed By: #### PILLAR LIPID, PILLAR TSH, PILLAR CBC, PILLAR CMP #### [facility] [address] [place] [address] [place] #### NICOTINE QUAL #### [facility] ,Employee Lipid Profileon 75-71-4367Nzjiorttlxa [Mass/Vol]156 mg/bTMfmjfa947-271 P[facility] Community HospitalComment on above:Result Comment: Chol less than 200 mg/dl low risk Chol 201-239 mg/dl borderline risk Chol 240 mg/dl and greater high riskPerformed By: #### PILLAR LIPID, PILLAR TSH, PILLAR CBC, PILLAR CMP #### [facility] [address] [place] [address] [place] #### NICOTINE QUAL #### [facility] ,Cholesterol in HDL [Mass/Vol]48 mg/zZMhribd56-50NrimuvcwgPike Community HospitalComment on above:Result Comment: HDL CHOL ATP-III CLASSIFICATION Cardiovascular Risk HDL > or equal to 60 mg/dL LOW HDL < 40 mg/dL HIGHPerformed By: #### PILLAR LIPID, PILLAR TSH, PILLAR CBC, PILLAR CMP #### [facility] [address] [place] [address] [place] #### NICOTINE QUAL #### [facility] ,Cholesterol.total/Cholesterol in HDL [Mass ratio]3.3 {ratio}Normal<5.0P[facility] Community HospitalComment on above:Performed By: #### PILLAR LIPID, PILLAR TSH, PILLAR CBC, PILLAR CMP #### [facility] [address] [place] [address] [place] #### NICOTINE QUAL #### [facility] ,LDL Cholesterol,Iqzhwxkjcj82 mg/dLNonovant health th[facility]0-100[facility] Comment on above:Result Comment: LDL ATP III CLASSIFICATION LDL less than 100 mg/dL Optimal LDL 100-129 mg/dL Near or above optimal LDL 130-159 mg/dL Borderline high LDL 160-189 mg/dL High LDL greater than 189 mg/dL Very highPerformed By: #### PILLAR LIPID, PILLAR TSH, PILLAR CBC, PILLAR CMP #### [place] [address] [place] #### NICOTINE QUAL #### [facility] ,Triglyceride w/Mssvib957 mg/dLHigh0-149P[facility] Community HospitalComment on above:Result Comment: TRIG ATP III CLASSIFICATION TRIG less than 150 mg/dL Normal TRIG 150-199 mg/dL Borderline high TRIG 200-500 mg/dL High TRIG greater than 500 mg/dL Very high Standard traceable to the Center for Disease Conrtrol and Prevention (CDC) test method.Performed By: #### PILLAR LIPID, PILLAR TSH, PILLAR CBC, PILLAR CMP #### [place] [address] [place] #### NICOTINE QUAL #### [facility] ,VLDL ORYWWYUPOOM14 mg/dLNoUniversity Hospitals Beachwood Medical CenterComment on above:Performed By: #### PILLAR LIPID, PILLAR TSH, PILLAR CBC, PILLAR CMP #### [facility] [address] [place] [address] [place] #### NICOTINE QUAL #### [facility] ,Employee Thyroid Stim Hormoneon 63-36-7407Oqrjvgfn Thyroid Stim Hormone3.29 u[iU]/mLNormal0.45-5.33P[facility] Community HospitalComment on above:Result Comment: PERFORMED BY: [facility] [address] [place] [address] PATHOLOGIST SET ILLUSTRATOR LUCERO AREVALO M.D.Performed By: #### PILLAR LIPID, PILLAR TSH, PILLAR CBC, PILLAR CMP #### [facility] [address] #### NICOTINE QUAL #### [facility] ,Eosinophils Auto (Bld) [#/Vol]Ordered By: Surinder Del Castillo on 07-17-6215Wcxmrspqlxg (Bld) [#/Vol]0.1 10*3/uL0.0-0.45P[facility] HospitalEosinophils/100 WBC Auto (Bld)Ordered By: Surinder Del Castillo on 35-35-5573Dyibchkatpd/100 WBC (Bld)1.1 %.Pike Community HospitalErythrocyte distribution width Auto (RBC) [Ratio]Ordered By: Surinder Del Castillo on 74-56-0977Hiffoqkvfeu distribution width (RBC) [Ratio]12.8 %11.9-15.3FCleveland Clinic Children's Hospital for RehabilitationGlobulin Calc (S) [Mass/Vol]Ordered By: Surinder Del Castillo on 36-36-0258Wrjhljgu (S) [Mass/Vol]2.5 g/dL [facility] HospitalGlucose [Mass/volume] in Serum or PlasmaOrdered By: Surinder Del Castillo on 83-97-8810Rawzqwi [Mass/Vol]84 mg/hX31-987YskkzrnpfPike Community HospitalHematocrit Auto (Bld) [Volume fraction]Ordered By: Surinder Del Castillo on 47-48-2575Rtlufwcgnv (Bld) [Volume fraction]38.9 %34.0-46.4FCleveland Clinic Children[facility] Hospital for RehabilitationHemoglobin [Mass/volume] in BloodOrdered By: Surinder Del Castillo on 74-06-3720Qdtqxwnfdz (Bld) [Mass/Vol]13.2 g/dL11.8-15.4FCleveland Clinic Children's Hospital for RehabilitationLeukocytes [#/volume] corrected for nucleated erythrocytes in Blood by Automated counOrdered By: Surinder Del Castillo on 36-76-6615HME corrected for nucl RBC Auto (Bld) [#/Vol]7.2 10*3/uL3.8-11.6FC[facility] Lymphocytes Auto (Bld) [#/Vol]Ordered By: Surinder Del Castillo on 97-80-3454Ddhnjsjinpd (Bld) [#/Vol]2.2 10*3/uL1.00-4.8P[facility] Community HospitalLymphocytes/100 WBC Auto (Bld)Ordered By: Surinder Del Castillo on 16-06-4249Fbpghqklfil/100 WBC (Bld)30.4 %.[facility]H Auto (RBC) [Entitic mass]Ordered By: Surinder Del Castillo on 82-78-3734ACC (RBC) [Entitic mass]30.8 pg24.7-34.3FCleveland Clinic Children[facility] Hospital for RehabilitationMCHC Auto (RBC) [Mass/Vol]Ordered By: Surinder Del Castillo on 05-82-4796WWUA (RBC) [Mass/Vol]33.9 g/dL32.0-35.0P[facility] HospitalMCV Auto (RBC) [Entitic vol]Ordered By: Surinder Del Castillo on 14-52-3005EAV (RBC) [Entitic vol]90.9 wB15-116KgsugtzcgPike Community HospitalMonocytes Auto (Bld) [#/Vol]Ordered By: Surinder Del Castillo on 25-29-0207Vfbceaiox (Bld) [#/Vol]0.7 10*3/uL 0.0-0.8P[facility] HospitalMonocytes/100 WBC Auto (Bld)Ordered By: Surinder Del Castillo on 53-90-4592Ddfszafqy/100 WBC (Bld)9.6 %.[facility] Community HospitalNeutrophils Auto (Bld) [#/Vol]Ordered By: Surinder Del Castillo on 12-24-2022 Neutrophils (Bld) [#/Vol]4.2 10*3/uL1.8-7.7FC[facility] Neutrophils/100 WBC Auto (Bld)Ordered By: Surinder Del Castillo on 12-24-2022 Neutrophils/100 WBC (Bld)58.4 %.Pike Community HospitalNicotine Metabolite, Qualon 19-95-6959Uqxunirq MetaboliteNegativeNormalCutoff=25P[facility] Community HospitalComment on above:Result Comment: Performed at: BN - [facility] [id number] Assembly Repairer: Jesi Lombardo MD, Phone: [phone] PERFORMED BY: [facility] [address] [place] [address] PATHOLOGIST SET ILLUSTRATOR LUCERO AREVALO M.D.Performed By: #### PILLAR LIPID, PILLAR TSH, PILLAR CBC, PILLAR CMP #### [facility] [address] #### NICOTINE QUAL #### [facility] ,No Panel InformationOrdered By: Surinder Del Castillo on 63-95-5007Kqluzlddd GFR (CKD-EPI) > 60.0 mL/MinPike Community HospitalNicotine MetaboliteNegative Cutoff=25P[facility] Community HospitalComment on above:Performed at: - [facility] [address] [id number] Director: Jesi Lombardo MD, Phone: [phone] Creatinine Clearance (ChemN/AFCleveland Clinic Children's Hospital for RehabilitationNucleated erythrocytes [Presence] in Blood by Automated countOrdered By: Surinder Del Castillo on 51-69-8723Cuvftfxeg RBC Auto Ql (Bld)0.2 /100{WBC}0-0.5FCleveland Clinic Children's Hospital for RehabilitationPlatelet mean volume Auto (Bld) [Entitic vol]Ordered By: Surinder Del Castillo on 52-24-5601Xkgdnleh mean volume (Bld) [Entitic vol]7.5 fL6.3-10.7FCleveland Clinic Children's Hospital for RehabilitationPlatelets Auto (Bld) [#/Vol]Ordered By: Surinder Del Castillo on 82-24-3250Lghgvxfec (Bld) [#/Vol]404 10*3/uL 150-450P[facility] HospitalPotassium [Moles/volume] in Serum or PlasmaOrdered By: Surinder Del Castillo on 81-83-0900Wblmdmlem [Moles/Vol]3.7 mmol/L3.5-5.1 [facility] HospitalProtein [Mass/volume] in Serum or PlasmaOrdered By: Surinder Del Castillo on 32-16-2049Tcrhyfw [Mass/Vol]6.8 g/dL6.4-8.9P[facility] HospitalRBC Auto (Bld) [#/Vol]Ordered By: Surinder Del Castillo on 34-55-6306YLY (Bld) [#/Vol]4.28 10*6/uL3.60-5.00[facility] Medical Centererum or plasma albumin/globulin mass ratioOrdered By: Surinder Del Castillo on 12-24-2022 Albumin/Globulin [Mass ratio]1.7 {ratio}[facility] Centererum or plasma anion gap determinationOrdered By: Surinder Del Castillo on 49-94-1989Ongjq gap [Moles/Vol]10.4 mmol/L6.0-15.0[facility] Centererum or plasma high density lipoprotein (HDL) cholesterol measurementOrdered By: Surinder Del Castillo on 58-02-7601Dsakarobrwr in HDL [Mass/Vol]48 mg/gS18-27MdgzhnezkPike Community HospitalComment on above:HDL CHOL ATP-III CLASSIFICATION Cardiovascular RiskHDL > or equal to 60 mg/dL LOWHDL < 40 mg/dL HIGHSerum or plasma total cholesterol/high density lipoprotein (HDL) cholesterol mass ratOrdered By: Surinder Del Castillo on 65-92-0088Dgyzdlehbpg.total/Cholesterol in HDL [Mass ratio]3.3 {ratio} <5.0[facility] Medical Centerodium [Moles/volume] in Serum or Plasma Ordered By: Surinder Del Castillo on 56-93-7638Ntwusw [Moles/Vol]141 mmol/P739-038FvvcewhmrPike Community HospitalThyrotropin [Units/volume] in Serum or PlasmaOrdered By: Surinder Del Castillo on 90-16-3387OHG Qn3.29 m[IU]/L0.45-5.33P[facility] HospitalTriglyceride [Mass/volume] in Serum or PlasmaOrdered By: Surinder Del Castillo on 46-19-4770Mcmlzqxzvquo [Mass/Vol]302 mg/dL0-149[facility] Comment on above:TRIG ATP III CLASSIFICATIONTRIG less than 150 mg/dL NormalTRIG 150-199 mg/dL Borderline highTRIG 200-500 mg/dL High TRIG greater than 500 mg/dL Very highStandard traceable to the Center for Disease Conrtrol and Prevention (CDC) test method.Urea nitrogen [Mass/volume] in Serum or PlasmaOrdered By: Surinder Del Castillo on 17-34-0625Tpcc nitrogen [Mass/Vol]13 mg/dL7-25P[facility] HospitalWBC Auto (Bld) [#/Vol]Ordered By: Surinder Del Castillo on 37-83-4276YKZ (Bld) [#/Vol]7.2 10*3/uL3.8-11.6FCleveland Clinic Children's Hospital for RehabilitationUrinalysis - AUTOMATEDon 12-55-5013Djbfrktkva (U)cloudyNorth [employer] Other Bilirubin Ql (U)smallQuotify Technology [employer] Other Color (U)orange-brownID [employer] Other Glucose Ql (U)NegativeQuotify Technology [employer] Other Hemoglobin Ql (U)largeQuotify Technology [employer] Other Ketones Ql (U)NegativeQuotify Technology [employer] Other Leukocyte esterase Test strip Ql (U)NegativeQuotify Technology [employer] Other Nitrite Ql (U)PositiveID [employer] Other pH (U)5.0 [pH][place] [employer] Other Protein Ql (U)100Noshriners hospitals for children [employer] Other Specific gravity (U) [Rel density]1.030[place] [employer] Other Urobilinogen (U) [Mass/Vol]1.0 mg/dLNort [employer] Other Urinalysis - AUTOMATEDNoshriners hospitals for children [employer] Other Urine Cultureon 43-65-7226Kfekiyrc identified Cx Nom (U)[place] [employer] Other [id number]-EpV-2 (COVID-19) RNA CHARLENE+probe Ql (Resp)on 40-47-0942FVRV-CoV-2 (COVID-19) RNA CHARLENE+probe Ql (Unsp spec)NegativeQuotify Technology [employer] Other [id number]-DjB-2 (COVID-19) RNA CHARLENE+probe Ql (Resp)on 93-47-1862MSCJ-CoV-2 (COVID-19) RNA CHARLENE+probe Ql (Unsp spec)NegativeQuotify Technology [employer] Other PAP ACOG PANEL 2: 30 to 65on 02-05-2022..NormalThe [facility]oster Community HospitalComment on above:Result Comment: Performed at: WBPerformed By: #### [id number] #### [facility] [address] [place] [address] Dr. Josue Ray Gdln ACOG Niihdew76-97CcsyykWqyMary Rutan HospitalComment on above:Performed By: #### [id number] #### [facility] [address] [place] [address] Dr. Josue PandaDIAGNOSIS:CommentCorey HospitalComaspirus ontonagon hospital on above: Result Comment: NEGATIVE FOR INTRAEPITHELIAL LESION OR MALIGNANCY. Performed at: WBPerformed By: #### [id number] #### [facility] [address] [place] [address] Dr. Josue PandaHPV AptimaNegativeNormalNegativeClermont County HospitalComaspirus ontonagon hospital on above:Result Comment: This nucleic acid amplification test detects fourteen high-risk HPV types (16,18,31,33,35,39,45,51,52,56,58,59,66,68) without differentiation. Performed at: =GPerformed By: #### [id number] #### [facility] [address] [place] [address] Dr. Josue PandaMethodology:CommentUC Medical Center on above: Result Comment: This liquid based ThinPrep(R) pap test was screened with the use of an image guided system. Performed at: WBPerformed By: #### [id number] #### [facility] [address] [place] [address] Dr. Josue PandaNote:CommentUC Medical Center on above:Result Comment: The Pap smear is a screening test designed to aid in the detection of premalignant and malignant conditions of the uterine cervix. It is not a diagnostic procedure and should not be used as the sole means of detecting cervical cancer. Both false-positive and false-negative reports do occur. . Performed at: WBPerformed By: #### [id number] #### [facility] [address] [place] [address] Dr. Josue PandaPerformed by:CommentNoUK Healthcare on above: Result Comment: Subhash Valentino Hairspring I Inspector (ASCP) Performed at: WBPerformed By: #### [id number] #### [facility] [address] [place] [address] Dr. Josue Ray adequacy:CommentUC Medical Center on above:Result Comment: Satisfactory for evaluation. No endocervical cells are present. This is consistent with a history of hysterectomy. Performed at: WBPerformed By: #### [id number] #### [facility] [address] [place] [address] Dr. Josue PandaBasophils Auto (Bld) [#/Vol]Ordered By: Surinder Del Castillo on 01-14-2022 Basophils (Bld) [#/Vol]0.1 10*3/uL0.0-0.2FC[facility] Clinic [facility] Rehabilitation Basophils/100 WBC Auto (Bld)Ordered By: Surinder Del Castillo on 52-51-7328Ifjgwayvy/100 WBC (Bld)1.2 %.[facility] HospitalBlood hemoglobin measurement (mass/volume)Ordered By: Surinder Del Castillo on 30-97-9804Dqovetkmbf (Bld) [Mass/Vol]14.0 g/dL11.8-15.4FCleveland Clinic Children's Hospital for RehabilitationBlood leukocytes automated count (number/volume)Ordered By: Surinder Del Castillo on 27-74-4436PYR (Bld) [#/Vol]5.6 10*3/uL 4.5-11.0[facility] HospitalBody fluid albumin measurement (mass/volume)Ordered By: Surinder Del Castillo on 18-68-8191Gfqfzwg (Body fld) [Mass/Vol] 4.1 g/dL3.2-5.5FCleveland Clinic Children[facility] Hospital for RehabilitationCholesterol [Mass/volume] in Serum or PlasmaOrdered By: Surinder Del Castillo on 99-77-5710Dcgjhhrogxy [Mass/Vol]149 mg/cH911-517GntblpbpkPike Community HospitalComment on above:Chol less than 200 mg/dl low risk Chol 201-239 mg/dl borderline risk Chol 240 mg/dl and greater high riskCholesterol in LDL Calc [Mass/Vol]Ordered By: Surinder Del Castillo on 31-20-1120Tkdgoczbghp in LDL [Mass/Vol]75 mg/dL0-100P[facility] HospitalComment on above:LDL ATP III CLASSIFICATION LDL less than 100 mg/dL Optimal LDL 100-129 mg/dL Near or above optimal LDL 130-159 mg/dL Borderline high LDL 160-189 mg/dL High LDL greater than 189 mg/dL Very highCholesterol in VLDL Calc [Mass/Vol]Ordered By: Surinder Del Castillo on 32-42-9990Zyucpcxpmwo in VLDL [Mass/Vol]33 mg/dLPike Community HospitalCreatinine and Glomerular filtration rate.predicted panel (S/P/Bld)Ordered By: Surinder Del Castillo on 77-62-1059Piyddykwbq [Mass/Vol]0.84 mg/dL 0.44-1.03P[facility] HospitalEosinophils Auto (Bld) [#/Vol]Ordered By: Surinder Del Castillo on 74-37-3965Imbnutnwdup (Bld) [#/Vol]0.1 10*3/uL0.0-0.45 [facility] HospitalEosinophils/100 WBC Auto (Bld)Ordered By: Surinder Del Castillo on 56-27-0154Ingfyfpamoc/100 WBC (Bld)2.6 %.[facility] HospitalErythrocyte distribution width Auto (RBC) [Ratio]Ordered By: Surinder Del Castillo on 21-42-3878Dxjbdnhjlls distribution width (RBC) [Ratio]12.7 %11.9-15.3FCleveland Clinic Children's Hospital for RehabilitationEstimated glomerular filtration rate (GFR) non- AmericanOrdered By: Surinder Del Castillo on 53-85-5529AUB/1.73 sq M.predicted among non- blacks MDRD (S/P/Bld) [Vol rate/Area]> 60 mL/MinPike Community HospitalGlobulin Calc (S) [Mass/Vol]Ordered By: Surinder Del Castillo on 94-25-3584Mwrzoymh (S) [Mass/Vol]2.8 g/dLPike Community HospitalHematocrit Auto (Bld) [Volume fraction]Ordered By: Surinder Del Castillo on 86-02-0245Jlcczrhdag (Bld) [Volume fraction]41.5 %34.0-46.4FCleveland Clinic Children's Hospital for RehabilitationLaboratory - Chemistry and Chemistry - challengeOrdered By: Surinder Del Castillo on 12-42-6177Snchcwo [Mass/Vol] 88 mg/iK38-562LxekhqesnPike Community HospitalLaboratory - Hematology and Cell countsOrdered By: Surinder Del Castillo on 54-00-1315Ijqjsnuuj RBC/100 WBC (Bld) [Ratio]0.2 %0-0.5FCleveland Clinic Children's Hospital for RehabilitationLymphocytes Auto (Bld) [#/Vol]Ordered By: Surinder Del Castillo on 02-38-3981Ijamgcmoywt (Bld) [#/Vol]1.9 10*3/uL1.00-4.8 [facility] HospitalLymphocytes/100 WBC Auto (Bld)Ordered By: Surinder Del Castillo on 25-14-3413Fyytmkrlbti/100 WBC (Bld)33.5 %.[facility] Auto (RBC) [Entitic mass]Ordered By: Surinder Del Castillo on 12-73-2684MHT (RBC) [Entitic mass]30.4 pg24.7-34.3FC[facility] Clinic Children[facility] Hospital for RehabilitationMCHC Auto (RBC) [Mass/Vol]Ordered By: Surinder Del Castillo on 60-24-8783LSWD (RBC) [Mass/Vol]33.6 g/dL 32.0-35.0P[facility] HospitalMCV Auto (RBC) [Entitic vol]Ordered By: Surinder Del Castillo on 14-24-1821IVP (RBC) [Entitic vol]90.5 fM92-358ZujajfskaPike Community HospitalMonocyte %Ordered By: Surinder Del Castillo on 24-58-1787Fwbsimgs % 169 mg/vL67-668TzowslwacPike Community HospitalComment on above:TRIG ATP III CLASSIFICATION TRIG less than 150 mg/dL Normal TRIG 150-199 mg/dL Borderline high TRIG 200-500 mg/dL High TRIG greater than 500 mg/dL Very high Standard traceable to the Center for Disease Conrtrol and Prevention (CDC) test method.Monocytes Auto (Bld) [#/Vol]Ordered By: Surinder Del Castillo on 91-66-1905Lwkphvjvv (Bld) [#/Vol]0.6 10*3/uL0.0-0.8P[facility] HospitalMonocytes/100 WBC Auto (Bld)Ordered By: Surinder Del Castillo on 59-22-7958Gzuffjjij/100 WBC (Bld)11.4 %. [facility] HospitalNeutrophils Auto (Bld) [#/Vol]Ordered By: Surinder Del Castillo on 61-72-0178Qkebfevlseq (Bld) [#/Vol]2.9 10*3/uL1.8-7.7FCleveland Clinic Children's Hospital for RehabilitationNeutrophils/100 WBC Auto (Bld)Ordered By: Surinder Del Castillo on 41-46-8283Jwhawqtkwau/100 WBC (Bld)51.3 %.[facility] HospitalNo Panel InformationOrdered By: Surinder Del Castillo on 42-68-2807Fhzvmpqeo GFR ()> 60 mL/MinPike Community HospitalComment on above:GFR estimated reference range: According to KDOQI guidelines, <60 ml/min/1.73m2 is sufficient todiagnose a patient with chronic kidney disease.Nicotine Metabolite NegativeCutoff=25Pike Community HospitalComment on above:Performed at: - Lab[address] [id number] Assembly Repairer: Jesi Lombardo MD, Phone: [phone] Creatinine Clearance (ChemN/AFCleveland Clinic Children's Hospital for RehabilitationPlatelet mean volume Auto (Bld) [Entitic vol]Ordered By: Surinder Del Castillo on 82-69-0507Mvbjmoqn mean volume (Bld) [Entitic vol]7.4 fL6.3-10.7FCleveland Clinic Children's Hospital for RehabilitationPlatelets Auto (Bld) [#/Vol]Ordered By: Surinder Del Castillo on 26-45-4330Mousecyve (Bld) [#/Vol]442 10*3/uL 150-450[facility] HospitalProtein [Mass/volume] in Serum or Plasma Ordered By: Surinder Del Castillo on 42-13-8687Kxyuyos [Mass/Vol]6.9 g/dL6.1-7.9P[facility] HospitalRBC Auto (Bld) [#/Vol]Ordered By: Surinder Del Castillo on 86-39-5781PRZ (Bld) [#/Vol]4.59 10*6/uL3.60-5.00[facility] Medical Centererum or plasma alanine aminotransferase measurement without P-5'-P (enzymatic activiOrdered By: Surinder Del Castillo on 96-28-7920EMS No additional P-5'-P [Catalytic activity/Vol]60 U/H41-49WqhnfobonSalem Regional Medical Centererum or plasma albumin/globulin mass ratioOrdered By: Surinder Del Castillo on 01-14-2022 Albumin/Globulin [Mass ratio]1.5 {ratio}[facility] Centererum or plasma alkaline phosphatase measurement (enzymatic activity/volume)Ordered By: Surinder Del Castillo on 85-48-8245ATY [Catalytic activity/Vol]64 U/F28-14ZbzeiedtpSalem Regional Medical Centererum or plasma aspartate aminotransferase measurement (enzymatic activity/volume)Ordered By: Surinder Del Castillo on 02-26-9645XNB [Catalytic activity/Vol]51 U/F75-95BalogurjkSalem Regional Medical Centererum or plasma calcium measurement (mass/volume)Ordered By: Surinder Del Castillo on 33-04-2465Akwlnru [Mass/Vol] 10.7 mg/dL8.2-10.2FParkview Health Montpelier Hospitalerum or plasma chloride measurement (moles/volume)Ordered By: Surinder Del Castillo on 41-12-2050Nnoonkcl [Moles/Vol]98 mmol/R73-270BazemqqisSalem Regional Medical Centererum or plasma high density lipoprotein (HDL) cholesterol measurementOrdered By: Surinder Del Castillo on 22-41-6484Jywztgrxmgv in HDL [Mass/Vol]40 mg/eB21-46VvonmhqxePike Community HospitalComment on above:HDL CHOL ATP-III CLASSIFICATION Cardiovascular Risk HDL > or equal to 60 mg/dL LOW HDL < 40 mg/dL HIGHSerum or plasma potassium measurement (moles/volume)Ordered By: Surinder Del Castillo on 54-52-1439Ppzucowyi [Moles/Vol]3.7 mmol/L3.5-5.1FParkview Health Montpelier Hospitalerum or plasma sodium measurement (moles/volume)Ordered By: Surinder Del Castillo on 45-93-7099Wttece [Moles/Vol]136 mmol/N603-285OfljmomggSalem Regional Medical Centererum or plasma total bilirubin measurement (mass/volume) Ordered By: Surinder Del Castillo on 28-84-0188Pbrpeyhwq [Mass/Vol]0.7 mg/dL0.3-1.2 [facility] Centererum or plasma total carbon dioxide measurement (moles/volume)Ordered By: Surinder Del Castillo on 20-35-1955BQ9 [Moles/Vol] 27.9 mmol/L22.0-30.0[facility] Centererum or plasma total cholesterol/high density lipoprotein (HDL) cholesterol mass ratOrdered By: Surinder Del Castillo on 42-89-1408Hbgsldylydn.total/Cholesterol in HDL [Mass ratio]3.7 {ratio} <5.0[facility] Medical Centererum or plasma urea nitrogen measurement (mass/volume)Ordered By: Surinder Del Castillo on 61-09-1433Zrhr nitrogen [Mass/Vol]7 mg/dL 9-23P[facility] HospitalTS DL <= 0.005 mIU/L QnOrdered By: Surinder Del Castillo on 98-08-4344FLL Qn2.11 m[IU]/L0.45-5.33[facility] COVID Quick Testingon 24-82-1580LrhkjkWvmsrjqdYrvjz [employer] Other 958-6959XUHJ-BhU-2 (COVID-19) RNA CHARLENE+probe Ql (Resp)on 14-86-9825LLSQ-CoV-2 (COVID-19) RNA CHARLENE+probe Ql (Unsp spec)PositiveNort [employer] Other COVID Quick Testingon 04-12-0236OudqwsRukrymogWjxxf [employer] Other Urine Cultureon 06-90-0325Ntlcl Culture>100,000North [employer] Other Urine Culture<16North [employer] Other Urine Culture<8North [employer] Other Urine Culture<4North [employer] Other Urine Culture<2North [employer] Other Urine Culture<1North [employer] Other Urine Culture<0.5North [employer] Other Urine Culture<32North [employer] Other Urine Culture<2/38North [employer] Other Vital Signs Date TimeVital SignValuePerforming AfmyflpkdOharrqli63-34-4121 15:01-0400Body ypfjtw236.4 cmStacianaid CrowSoliant Energy BEAM DYER-ORAL AND MAXILLOFACIAL SURGERY RESIDENT Work Phone: [facility] HospitalMot[facility]10-01-2025 15:01-0400Body mass index (BMI) [Ratio]37.97 kg/r0Jflnferee Steen BEAM DYER-ORAL AND MAXILLOFACIAL SURGERY RESIDENT Work Phone: [facility] Hospital[facility]10-01-2025 15:01-0400Body .1 kgStacianaid Steen BEAM DYER-ORAL AND MAXILLOFACIAL SURGERY RESIDENT Work Phone: [facility]10-01-2025 15:01-0400Diastolic blood mm[Hg]Donna Steen BEAM DYER-ORAL AND MAXILLOFACIAL SURGERY RESIDENT Work Phone: [facility]10-01-2025 15:01-0400Heart rate 59 /minStaconnie Steen BEAM DYER-ORAL AND MAXILLOFACIAL SURGERY RESIDENT Work Phone: [facility]10-01-2025 15:01-9721PrS9% (BldA) [Mass fraction]95 %Donna Steen BE[employer] DYER-ORAL AND MAXILLOFACIAL SURGERY RESIDENT Work Phone: [facility]10-01-2025 15:01-0400Systolic blood fshiwtzv484 mm[Hg]Donna Steen BE[employer] DYER-ORAL AND MAXILLOFACIAL SURGERY RESIDENT Work Phone: [facility]09-24-2025 11:18-0400Body epaamr150.4 Thais Raoabo [employer] Work Phone: [phone])[address] [place], [place] [address]-24-2025 11:18-0400Body mass index (BMI) [Ratio]38.68 kg/m2Emma Gail [employer] Work Phone: 1(323)[address] [place] [address]-24-2025 11:18-0400Body temperature 97.7 [degF]Ai Raoabo [employer] Work Phone: 1(256)[address] [place] [address]-24-2025 11:18-0400Body galzgw238.05 kgEmrobby Gail [employer] Work Phone: 1(138)[address] [place] [address]-24-2025 11:18-0400Diastolic blood usinoalz39 mm[Hg]Ai Gail [employer] Work Phone: 1(980)[address] [place] [address]-24-2025 11:18-0400Heart rate63 /min Ai Gail [employer] Work Phone: 1(995)[place] [address]-24-2025 11:18-6539CmS4% (BldA) [Mass fraction]99 %Ai Gail [employer] Work Phone: 1(696)[address] [place] [address]-24-2025 11:18-0400Systolic blood dnyrxzbc666 mm[Hg]Ai Reynolds [employer] Work Phone: [facility] WestXorsmikwoz71-08-4846 14:14-0400Body fzwuus544.4 cmStesudheer Guidry DPM Work Phone: [facility] WestGjzkmkfyen02-24-7023 14:14-0400Body mass index (BMI) [Ratio]36.87 kg/g6Yxfttr Lindyher DPM Work Phone: [facility] WestOwawgwqhtp32-00-1320 14:14-0400Body mtrutj894.06 kgSteven Lindyher DPM Work Phone: [address] [place], [place] [address]Pvtzjcgxmo57-25-4530 09:44-0400Diastolic blood psbumluy04 mm[Hg]KATALINA WEIR [facility]05-12-2025 09:44-0400Mean blood bjdgmnmo088 mm[Hg]KATALINASYDNI WEIR [facility]05-12-2025 09:44-0400Systolic blood urhluepw544 mm[Hg]KATALINA WEIR [facility]05-12-2025 09:27-0400Body ydkpngkwmmn24.52 [degF]KATALINA WEIR [facility]05-12-2025 09:27-0400Diastolic blood lfrvmdyc064 mm[Hg]KATALINA ADAMA [facility]05-12-2025 09:27-0400Heart rate78 /minJENNIFER ADAMA [facility]05-12-2025 09:27-0400Respiratory rate16 /minJENNIFER ADAMA [facility]05-12-2025 09:27-0400Systolic blood igvlqbcy647 mm[Hg]KATALINA WEIR [facility]04-03-2025 09:24-0400Body mass index (BMI) [Ratio]33 kg/m9Yirja Alyssa DO Work Phone: [facility] WestRmlnsblmkn56-19-4689 09:24-0400Body wfavoh887.33 kgCorey Alyssa DO Work Phone: [facility] WestJoaazawnya19-39-7966 09:24-0400Diastolic blood ephhufej79 mm[Hg]Rj Alyssa DO Work Phone: [facility] WestZpnynrpiun62-07-4245 09:24-0400Systolic blood uaagbjxo826 mm[Hg]Rj Alsysa DO Work Phone: [facility] WestRdgctruufa40-43-9999 09:14-0500Body mcelcg877.8 Mukul Colmenares MD Work Phone: [facility] WestMndsafwmyf83-89-0315 09:14-0500Body mass index (BMI) [Ratio]31.57 kg/m2XdrdlAgapito Colmenares MD Work Phone: [facility] WestUbfeipbuxk97-12-8922 09:14-0500Body temperature 97.11 [degF]Agapito Colmenares MD Work Phone: [phone] WestMszcdgsvdm74-61-2448 09:14-0500Body hqrxib30.79 kgAgapito Colmenares MD Work Phone: [facility] WestFezunpirky87-69-7898 09:14-0500Diastolic blood qfkyyftp32 mm[Hg]Agapito Colmenares MD Work Phone: [facility] WestGdahxkmatr66-13-3209 09:14-0500Heart rate69 /min Agapito Colmenares MD Work Phone: [facility] WestPopjzfmaat48-09-9125 09:14-0500Respiratory rate18 /minAaron Meinke MD Work Phone: 1(633)[address] [place], [place] 380[address]01-20-2025 09:14-3538WhP7% (BldA) [Mass fraction]98 %Agapito Colmenares MD Work Phone: 1(596)[address] [place], [place] 3805801-20-2025 09:14-0500Systolic blood tkxdedsb916 mm[Hg]Agapito Colmenares MD Work Phone: 1(940)[address] [place], [place] 3805812-13-2024 08:45-0500Body blutfb987.8 Mukul Colmenares MD Work Phone: 1(051)[address] [place], [place] 3805812-13-2024 08:45-0500Body mass index (BMI) [Ratio]31.57 kg/x8JuagqAgapito Colmenares MD Work Phone: 1(421)[address] [place], [place] 3805812-13-2024 08:45-0500Body temperature 97.11 [degF]Agapito Colmenares MD Work Phone: 1(585)[address] [place], [place] 3805812-13-2024 08:45-0500Body duofbu97.79 kgAgapito Colmenares MD Work Phone: 1(205)[address] [place], [place] 3805812-13-2024 08:45-0500Diastolic blood zrbfxofi41 mm[Hg]Agapito Colmenares MD Work Phone: 1(952)[address] [place], [place] 3805812-13-2024 08:45-0500Heart rate74 /min Agapito Colmenares MD Work Phone: 1(604)[address] [place], [place] 3805812-13-2024 08:45-0500Respiratory rate18 /minAgapito Colmenares MD Work Phone: 1(513)[address] [place], [place] 3805812-13-2024 08:45-0079DvO9% (BldA) [Mass fraction]98 %Agapito Colmenares MD Work Phone: 1(044)[address] [place], [place] 3805812-13-2024 08:45-0500Systolic blood mm[Hg]Agapito Colmenares MD Work Phone: 1(295)[address] [place], [place] 3805805-15-2024 14:45-0400Diastolic blood fixdscww11 mm[Hg]Natasha Johnson MD Work Phone: [facility]05-15-2024 14:45-0400Heart rate52 /minNatasha Johnson MD Work Phone: [facility]05-15-2024 14:45-0400 Respiratory rate16 /minNatasha Johnson MD Work Phone: [facility]05-15-2024 14:45-6810DsS3% (BldA) [Mass fraction]100 %Natasha Johnson MD Work Phone: [facility]05-15-2024 14:45-0400Systolic blood saqypnta425 mm[Hg]Natasha Johnson MD Work Phone: [facility]05-15-2024 14:09-0400Body mrivvwwedya83.91 [degF]Natasha Johnson MD Work Phone: [facility]05-15-2024 12:00-0400Body btndoo127.4 cmVriki Johnson MD Work Phone: [facility]05-15-2024 12:00-0400Body mass index (BMI) [Ratio]33.27 kg/e0QpckfcNatasha Johnson MD Work Phone: [facility]05-15-2024 12:00-0400Body icwklg39.08 kgNatasha Johnson MD Work Phone: [facility]01-26-2024 19:27-0500Body .[address]01-26-2024 19:27-0500Body mass index (BMI) [Ratio]36.71 kg/m2Pmh [address] [place], [place] 5804101-26-2024 19:27-0500Body loomgw928.[address] [place], [place] 5804101-21-2023 10:15-0500Body height 170.18 Anthony Antony Other [employer] Other 01-21-2023 10:15-0500Body mass index (BMI) [Ratio] 35.08 kg/u8CiwhdvElisa Antony Other [employer] Other 01-21-2023 10:15-0500Body fzynoajaycs78 [degF]Elisa Cassia Other [employer] Other 01-21-2023 10:15-0500Body wvpudb836.61 kgPaevan Antony Other [employer] Other 01-21-2023 10:15-0500Diastolic blood yplxdzmi20 mm[Hg] Elisa Cassia Other [employer] Other 01-21-2023 10:15-0500Respiratory rate18 /minElisa Antony Other [employer] Other 01-21-2023 10:15-5071NdY6% (BldA) [Mass fraction]98 % Elisa Cassia Other [employer] Other 01-21-2023 10:15-0500Systolic blood ribxejbd896 mm[Hg] Elisa Cassia Other [employer] Other 01-05-2023 06:42-0500Body qewada415.37 cmMD Agapito Colmenares Work Phone: [facility]01-05-2023 06:42-0500 Body ygborq207.32 kgMD Agapito Colmenares Work Phone: [facility]12-13-2022 15:30-0500 Diastolic blood fxobobjy09 mm[Hg]MD Agapito Colmenares Work Phone: 1(616)[address]12-13-2022 15:30-0500 Heart rate63 /min Agapito Colmenares Work Phone: 1(740)[address] [place], [place] [address]112-13-2022 15:30-0500 Respiratory rate16 /minMD Agapito Colmenares Work Phone: 1(374)[address]12-13-2022 15:30-0500 SaO2% (BldA) [Mass fraction]99 %MD Agapito Colmenares Work Phone: 1(484)[address] [place], [place] 5832112-13-2022 15:30-0500 Systolic blood tmgvyazp171 mm[Hg]MD Agapito Colmenares Work Phone: 1(714)[address] [place], [place] 5832112-13-2022 13:19-0500 Body zouzda102.37 cm Agapito Colmenares Work Phone: 1(936)[address] [place], [place] 5832112-13-2022 13:19-0500 Body bazcrqubujy93.6 [degF]MD Agapito Colmenares Work Phone: 1(011)[address] [place], [place] 5832112-13-2022 13:19-0500 Body .32 kgMD Agapito Colmenares Work Phone: 8(306)[address] [place], [place] 58[address]111-23-2021 10:45-0500 Body tmyrnh202.18 cmPamellenka Cassia Other [place] [employer] Other 11-23-2021 10:45-0500Body mass index (BMI) [Ratio] 33.67 kg/l5SrbqmtElsia Antony Other [facility] [employer] Other 11-23-2021 10:45-0500Body ninfik34.52 kgElisa Antony Other [place] [employer] Other 11-23-2021 10:45-3000KzE0% (BldA) [Mass fraction]97 % Elisa Antony Other [employer] Other 10-12-2021 17:50-0400Body nasufv990.18 cmPisabel Antony Other [employer] Other 10-12-2021 17:50-0400Body mass index (BMI) [Ratio] 33.67 kg/d1Gwjvrx Cassia Other [employer] Other 10-12-2021 17:50-0400Body cicispoafaq12.9 [degF]Elisa Antony Other [employer] Other 10-12-2021 17:50-0400Body rkdaam17.52 kgPaevan Antony Other [employer] Other 10-12-2021 17:50-0400Diastolic blood asrtbppg26 mm[Hg] Elisa Antony Other [employer] Other 10-12-2021 17:50-0400Respiratory rate18 /minElisa Antony Other [employer] Other 10-12-2021 17:50-8942KiK1% (BldA) [Mass fraction]100 % Elisa Antony Other [employer] Other 10-12-2021 17:50-0400Systolic blood ofatbhab860 mm[Hg] Elisa Marksmond Other [employer] Other 09-22-2021 10:45-0400Body rasrrs712.18 cmPisabel Antony Other [employer] Other 09-22-2021 10:45-0400Body mass index (BMI) [Ratio] 33.67 kg/f1LpecpaElisa Antony Other [employer] Other 09-22-2021 10:45-0400Body .5 [degF]Elisa Antony Other [employer] Other 09-22-2021 10:45-0400Body gzyyiw26.52 kgElisa Antony Other [employer] Other 09-22-2021 10:45-0400Respiratory rate18 /minElisa Antony Other [employer] Other 09-22-2021 10:45-2623ZqY0% (BldA) [Mass fraction]97 % Elisa Antony Other [employer] Other Encounters Encounter DateEncounter TypeCare ProviderFacilityStart: 12-02-0828qhlzlaerqy Maria Esther Salguero WATERSFacility:ANH BellevueStart: 02-25-2025 End: 24-62-8825Pprgmmqtz encounterSkory Branham RMAProMedkathya Physicians Pulmonary/Sleep MedicineStart: 02-23-2025 End: 41-64-2625Skluqn outpatient visit 25 minutesStree Steen BE[employer] DYER-ORAL AND MAXILLOFACIAL SURGERY RESIDENT Work Phone: [facility] Pulmonary/Sleep MedicineComment on above:CRIS (obstructive sleep apnea) (Primary Dx); CPAP use counseling; Obesity (BMI 30-39.9); BMI 37.0-37.9, adultStart: 02-23-2025 End: 77-20-5848ygbjybpcjiLDPYGQ L KREGELOhioHealth Ambulatory PPGStart: 02-16-2025 End: 69-51-5592Pfzywveht encounterAgapito Colmenares MD Work Phone: NOZW [facility] MedicineStart: 02-16-2025 End: 84-72-8331Htvipp outpatient visit 25 minutesLanierobby Gail CUELLAR Work Phone: noms [facility] MedicineComment on above:Primary hypertension (Primary Dx)Start: 02-16-2025 End: 35-91-1309hcoutawiutAOOB SZABONot AvailableStart: 11-23-2024 End: 84-69-8738Sxkagb outpatient visit 15 minutesSteven A Rusher DPM Work Phone: noms PODIATRYComment on above:Plantar fasciitis, left (Primary Dx); Inflammatory heel pain, left; Difficulty walking; Calcaneal spur, leftStart: 11-23-2024 End: 19-88-7930tndqlsxkvkYHGPVW A RUSHERNot AvailableStart: 11-23-2024 End: 55-13-1773Bozkye flowsheetSteven A Rusher DPM Work Phone: noMS PODIATRYStart: 11-23-2024 End: 59-92-6188Imoluu flowsheetSteven A Rusher DPM Work Phone: NOEB PODIATRYStart: 11-22-2024 End: 92-70-3119Ihwczdayn encounterSteven A Rusher DPM Work Phone: noms PODIATRYComment on above:Advice Only (Rx Request)Start: 10-29-2024 End: 43-28-6465nucdldigdwNFGFTWT R WATERSNot AvailableStart: 10-19-2024 End: 22-03-2415avtymzkvfrIfvqbec R WATERSFacility:EU [place]uskyStart: 10-19-2024 End: 27-72-9761Rhxunbo encounter procedureMaria Esther JUARES [facility] Start: 10-15-2024 End: 86-87-8746qpuayaugmdOQIUM FAZIONot AvailableStart: 10-12-2024 End: 96-26-0762nkyuovqswiHXJKZGST PERRYNot AvailableStart: 10-04-2024 End: 16-17-2530vrujtqpllxLTWXBCIK E PERRYFacility:FTMCStart: 10-04-2024 End: 59-19-4009Mst Drop offJENNIFER E ADAMA [facility] Start: 10-04-2024 End: 28-29-8612Yuuypof encounter procedureJENNIFER E ADAMA [facility] start: 10-04-2024 End: 65-74-9397mqacihkwylOKLGCTBZ E PERRYFacility:EU BellevueStart: 09-28-2024 ambulatoryPatrick WATERSFacility:EU [place]kyStart: 08-26-2024 End: 67-16-9566Hhbjlv flowsheetCorey Alyssa DO Work Phone: noms BCP OBStart: 08-26-2024 End: 81-85-2006Afmujf flowsheetCorey Alyssa DO Work Phone: noms BCP OBStart: 08-26-2024 End: 26-60-4423Itdijrvwb Result EncounterGeneric External Data ProviderNOMS External Department UnsolicitedStart: 08-26-2024 End: 94-84-7397Xfgcodu encounter procedureCorey Alyssa DO Work Phone: noms HealthcareStart: 08-26-2024 End: 40-65-2055Dahfsmwa preventive med est patient 40-64yrsCorey Alyssa DO Work Phone: noms BCP OBComment on above:Well woman exam with routine gynecological exam; Encounter for screening mammogram for malignant neoplasm of breast; H/O: hysterectomy; Other microscopic hematuriaStart: 08-26-2024 End: 88-65-5653hwjnuuvoyyDTYUR FAZIONot AvailableStart: 48-82-1753kujkhvhlao AGAPITO Scottie COLMENARESProMedica Emanate Health/Foothill Presbyterian Hospitaltart: 06-14-2024 End: 37-95-4589Uifrykmartir Colmenares MD Work Phone: noms GSRW FMStart: 06-14-2024 End: 01-53-7204Oxpuchmartir Colmenares MD Work Phone: noMS GSRW FMStart: 06-14-2024 End: 93-31-8696udmwwmglkpHTNFUGabriella Charles AvailableStart: 06-14-2024 End: 24-35-9080Mxqmrv outpatient visit 15 minutesAgapito Colmenares MD Work Phone: noms GSRW FMComment on above:Gastroenteritis (Primary Dx); Gastroesophageal reflux disease without esophagitis; Primary hypertension (CMS/HCC); Chronic diarrhea; Class 1 obesity due to excess calories with serious comorbidity and body mass index (BMI) of 31.0 to 31.9 in adultStart: 03-79-0631wniyzmsuxkMKRRP M MEINKE [facility] Hospitaltart: 05-07-2024 End: 33-57-1383Boipacmartir Colmenares MD Work Phone: noms GSRW FMStart: 05-07-2024 End: 31-38-2789Wsyjbkmartir Colmenares MD Work Phone: noms GSR FMStart: 05-07-2024 End: 91-78-8043qphbmyivrpKOELBGabriella Charles AvailableStart: 05-07-2024 End: 48-41-1734Fnfunl outpatient visit 25 minutesAgapito Colmenares MD Work [...] low back pain without sciaticaStart: 05-07-2024 End: 16-84-3928gzvkwmcgddRGIYZ M MEINKENot AvailableStart: 10-22-2023 End: 15-86-2053Bwitykxax encounterSkory Valdez Pulmonary/Sleep MedicineStart: 10-08-2023 End: 16-33-7753mqwyobvlwiUIGPIO N CHIDIMercy Tiffin HospitalStart: 10-08-2023 End: 60-40-8953Hancheercl hospital visit by physicianNatasha Johnson MD Work Phone: mthz ORComment on above:Screening for colon cancer; Dysphagia, unspecified typeStart: 09-30-2023 End: 81-48-5911ojgrdwlngpGDAOYRaji Jacinto HospitalStart: 09-19-2023 End: 07-87-7963irwewphwbuYQKLLA L KREGELHolden Memorial HospitalSeanca Lincoln HospitalStart: 09-19-2023 End: 74-19-0939Acbzfb outpatient new 45 minutesStacianaid Steen BE[employer] DY[employer]-ORAL AND MAXILLOFACIAL SURGERY RESIDENT Work Phone: [facility] Pulmonary/Sleep MedicineComment on above:CRIS (obstructive sleep apnea) (Primary Dx); Sleep apnea, unspecified type; CPAP use counseling; Class 2 obesity with body mass index (BMI) of 36.0 to 36.9 in adult, unspecified obesity type, unspecified whether serious comorbidity presentStart: 08-11-2023 Telephone encounterTerri Valdez Pulmonary/Sleep MedicineStart: 08-01-2023 End: 06-54-9965fbmkoxcyhgHybpt FazioFacility:[facility] Start: 07-25-2023 End: 44-70-2632Iioaduxea Result EncounterCorey Alyssa DO Work Phone: NOAG External Department UnsolicitedStart: 07-25-2023 End: 35-30-8509Psjqempyp Result EncounterCorey Alyssa DO Work Phone: noms External Department UnsolicitedStart: 07-16-2023 Telephone encounterRachel Kingsley CNA Work Phone: [facility] Pulmonary/Sleep MedicineStart: 06-26-2023 End: 39-31-8528Fdepkx outpatient visit 15 minutesCorey Alyssa DO Work Phone: [place] BCP OBComment on above:Cyst of ovary, unspecified laterality; Pelvic pain in femaleStart: 06-20-2023 End: 80-40-6958Twvbsusr SupportSelect Medical Specialty [facility] [address] [place] [address] - Sleep DisordersComment on above:Sleep apnea, unspecified typeStart: 06-13-2023 End: 89-62-9789jeffdipapsDIQDC R [facility] Centertart: 06-13-2023 End: 95-51-7086Xbvrqtqbgy hospital visit by Phil Colmenares MD Work Phone: MWHZ LaboratoryComment on above:Chronic GERDStart: 20-93-6351Ykewobkci encounterAagpito Colmenares MD Work Phone: [facility] - Sleep DisordersComment on above:Sleep Lab (HST)Start: 03-28-2023 End: 58-33-4538govangnibeWkvzhuo [employer] Other [place] [employer] Other Start: 29-48-9331Vtvqfyyik encounterCamradha TayloryFPG GastroenterologyStart: 01-06-2023 End: 15-60-0199cladivcrjhSvpgz M MeinkeFacility:[facility] Centertart: 01-06-2023 End: 27-68-2450qamjtczlohNC Agapito Colmenares Work Phone: [facility] Work Phone: Start: 01-06-2023 End: 67-97-8957Vrhtyqtehd RecurringMD Agapito Mannryawais Work Phone: [facility]-Physical Therapy [place] Work Phone: start: 12-24-2022 End: 02-11-3247irbpbwupgdMxtha M DarrianFacility:[facility] Cent[facility]art: 12-24-2022 End: 22-05-2841itrrrrbhdkRC Aaron M Darrian Work Phone: [facility] Work Phone: Start: 12-24-2022 End: 28-14-8363Skikukos ReferredMD Agapito Mannsatish Work Phone: [facility]-Employee Benefit ScreeningStart: 06-21-2022 End: 19-42-5209vbkbgoxsxwJvfmqtx [employer] Other [employer] Other Start: 28-78-2926Thkouwdzh encounterCameron Sixto GastroenterologyStart: 06-15-2022 End: 94-81-4582odxvvffqzhMvzruy Dymond Other [employer] Other Start: 06-50-4264Vqlybz outpatient visit 25 minutes Elisa AntonyFPG Urgent Care ClydeStart: 06-04-2022 End: 48-72-2368uoldhkmglyMI Agapito Rubin Darrian Work Phone: [facility] Work Phone: Start: 06-04-2022 End: 49-01-8989Qxeavfx encounter procedureMD Agapito Mannsatish Work Phone: [facility] Work Phone: Start: 05-30-2022 End: 63-12-3131qwlbtqwjkdKL Agapito Scottie Colmenares Work Phone: [facility] Work Phone: Start: 05-30-2022 End: 16-52-2492Wnqwmrf encounter procedureMD Agapito Mannryawais Work Phone: [facility] Work Phone: Start: 05-28-2022 End: 99-90-8995liuigzizglXzpycmyvg Breault Other [facility] [employer] Other Start: 42-25-2492Hqiuul outpatient visit 5 minutes Ele FriendFPSharon Urgent Care ClydeStart: 05-15-2022 End: 45-28-5908uderqwvcecZlrlpvs Ditty Other [employer] Other Start: 70-87-8041Akzpnkvrf encounterCameron DittyFPG GastroenterologyStart: 05-07-2022 End: 70-93-0734Aumqeazkz to same day surgery centerMD Agapito Mannsatish Work Phone: [facility]-Digestive HealthStart: 05-07-2022 End: 68-51-6927npghgymuicSB Agapito Mannryawais Work Phone: [facility] Work Phone: Start: 05-03-2022 End: 47-56-8356svmhfchedtWxbzcg Cassia Other [facility] [employer] Other Start: 96-69-6535Xwomnvq evaluation of patient and reportPamela DymondFPG Urgent Care ClydeStart: 04-23-2022 End: 09-55-6758mxgimeearxOmdvcay Ditty Other [employer] Other Start: 79-64-5491Jlclvryza encounterCameron DittyFPG GastroenterologyStart: 03-19-2022 End: 81-51-7542Yvhaqxr encounter procedureMD Agapito Colmenares Work Phone: [facility] Main CampusStart: 01-30-2022 End: 92-51-6724tswtalskjjTE RJ [employer] Other Start: 99-27-7117Mnttuuavq encounterCameron ClaudiayNATHALIAG GastroenterologyStart: 01-14-2022 End: 57-65-3931Ywykorbe ReferredMD Agapito Colmenares Work Phone: [facility]-Employee Benefit ScreeningStart: 01-07-2022 End: 59-63-5852vecufvzyorMoccwxsrj Breault Other [employer] Other Start: 75-17-0303Tkfgcp outpatient visit 5 minutes Ele [facility] ClydeStart: 01-04-2022 End: 43-46-3462Futwlstc ReferredMD Agapito Colmenares Work Phone: [facility]-Employee Benefit ScreeningStart: 12-30-2021 End: 05-75-3048dkirautukjEgquhj Dymond Other [employer] Other Start: 68-64-0211Ovsyfvw evaluation of patient and reportPamela CassiaFPSharon Urgent Care ClydeStart: 07-12-2021 End: 90-25-8744daljgitpypHeuvq Keller Other [employer] Other Start: 58-45-8981Ricuxr outpatient visit 5 minutes Mariya [facility] ClydeStart: 04-17-2021 End: 47-00-7385ldoljwbddhSlyqcm Cassia Other [employer] Other Start: 78-55-0477Yfhoch outpatient visit 15 minutes Elisa DymondFPG Urgent Care ClydeStart: 72-24-9032Pbkpvl outpatient visit 15 minutesPaevan AntonyFPG Urgent Care ClydeStart: 02-14-2021(URG) Urgent Care VisitPamela CassiaFPG Urgent Care Lul Procedures DateProcedureProcedure DetailPerforming ClinicianStart: 47-68-4169Gkgdpmlutc Maria Esther JUARES Start: 09-01-1928ImyhbnoczstLdiqbz Rusher DPM Work Phone: Start: 05-10-3221Docgh dip stick/tablet rgnt non-auto w/o micrscpCorey Alyssa DO Work Phone: Start: 75-16-0065ANL,APTIMA HPV,AGE GDLNCorey Alyssa DO Work Phone: Start: 49-98-1718Rzloekcvmhz observation [Identifier] in Cervix by Cyto Gloria Steen BEAM DYER-ORAL AND MAXILLOFACIAL SURGERY RESIDENT Work Phone: Start: 84-94-4988Dzustu citrullinated peptide antibody Comment on above:Performed By: #### CBC-4A, UA, ENA6, ACAX3, C3-C4, ESRCRP, CCP #### [facility] [address] [facility], [address] Start: 63-25-9978UezjdxheyyuatsotyqtckfrgziFcqnhj N Chidi MD Work Phone: Start: 10-08-2023 End: 55-99-2151HyajjgbfwtbIvzhbj N Chidi MD Work Phone: Start: 64-08-8269HaeylnokidqUeerv Meinke MD Work Phone: Start: 93-52-0314VAT 12-LEADCorey Alyssa DO Work Phone: Start: 44-79-8594Poqpdqoxretpl metabolic panelYolanda Santoyo BEAM DYER - ORAL AND MAXILLOFACIAL SURGERY RESIDENT Work Phone: Start: 50-39-9638IpqppwvywzsBYXONYZA PERRY Start: 59-11-0547YhjwxwunhjdCfufh Fazio DO Work Phone: Start: 50-03-9221Fbuyhfydxr manometryMD Agapito Colmenares Work Phone: Start: 39-30-3019ZomtpimvfbmwzgmxsupwoleolwQN Agapito Colmenares Work Phone: Start: 93-87-7782Laltggszjaxv/tazobactamPamela Cassia Other Start: 64-58-7232Tsrxkvwygzz observation [Identifier] in Cervix by Cyto stainCorey Alyssa [facility] Work Phone: Start: 17-30-9068Ufdifjs hysterectomyKATALINA WEIR H/O: hysterectomyH/O: hysterectomyCorey Alyssa DO Work Phone: Ovarian structure (body structure)KATALINA WEIR Comment on above:cyst removed Plan of Treatment DateCare ActivityDetailAuthorStart: 25-40-2667XRiS,Tdap and Td Vaccines (3 - Td or Tdap)DTaP,Tdap and Td Vaccines (3 - Td or Tdap)[facility] SystemStart: 97-64-6367Mtzvcwcfq for malignant neoplasm of colonNOMS HealthcareStart: 40-54-7246Xujfwkmlv for malignant neoplasm of cervixPap SmearProMedica Health SystemStart: 03-01-2026 End: 05-69-1311Vpthdqk encounter embhaijsy74/07/2026 3:15 PM EDT Office Visit [facility] [address] [place] [address] Donna Steen, BEAM DYER-ORAL AND MAXILLOFACIAL SURGERY RESIDENT [address] [facility], [address] [place] [address] [facility]/Sleep MedicineStart: 67-60-4469Yxonkqh ScreeningTobacco Screening [facility] SystemStart: 63-06-5564Fpgbr BMI ScreeningAdult BMI Screening [facility] SystemStart: 60-68-7354Wdhzzet ScreeningTobacco Screening [facility] SystemStart: 19-34-9882Dgbjjoaka for malignant neoplasm of breastMammogramNOMS HealthcareStart: 02-16-2025 End: 13-98-3443Ajjnjfb encounter smfvdavdq65/24/2025 11:30 AM EDT Office Visit [facility] Medicine [address] [place] [address] [place] [address] [place] [address] [facility] MedicineStart: 63-48-8408NNWLM-19 Vaccine ( season)COVID-19 Vaccine ()[facility] SystemStart: 49-17-9513Giygdzfkk vaccinationNONE HealthcareStart: 37-86-9384Mgjyzbdat for malignant neoplasm of cervixNOMS HealthcareStart: 11-23-2024 End: 29-47-2135Ooglqyv encounter procedureNOMS FH PODIATRYComment on above: ArrivedStart: 77-67-0379Yefgzyzqm for malignant neoplasm of breastMammogramNOMS HealthcareStart: 08-26-2024 End: 50-59-2631UM Breast - bilateral ScreeningBilateral screening mammogram Imaging Routine Encounter for screening mammogram for malignant neoplasm of breast Expected: 08/26/2024 (Approximate), Expires: 10/26/2025[facility] Work Phone: comment on above:Expected: 08/26/2024 (Approximate), Expires: 10/26/2025Start: 08-26-2024 End: 93-93-4586Uuncsuy encounter procedureNOMS BCP OBComment on above:Arrived Start: 42-30-5595Ctablijkr vaccinationInfluenza Vaccine (#1)[facility] Comment on above:Postponed from 01/25/2024 (Patient Refused)Start: 06-20-2024 Adult BMI ScreeningAdult BMI ScreeningAtrium Health [facility] Point Medical Centertart: 05-31-2024 DTaP/Tdap/Td Vaccines (3 - Td or Tdap)DTaP/Tdap/Td Vaccines (3 - Td or Tdap)[facility] HealthcareStart: 05-07-2024 End: 295460-yokawgmbbkgows D3 [Mass/volume] in Serum or PlasmaVitamin D 25 hydroxy Total Lab Routine Arthralgia, unspecified joint Night sweats Chronic neck painBilateral hip pain Sacroiliitis (CMS/HCC) Class 1 obesity due to excess calories with serious comorbidity and body mass index (BMI) of 31.0 to 31.9 in adult Primary hypertension (CMS/HCC) Gastroesophageal reflux disease, unspecified whether esophagitis present Hypercholesteremia (CMS/HCC) Expected: 05/07/2024 (Approximate), Expires: 05/07/2025[facility] HealthcareComment on above: Expected: 05/07/2024 (Approximate), Expires: 05/07/2025Start: 05-07-2024 End: 33-01-5697QOH W Auto Differential panel - BloodCBC and differential Lab Routine Arthralgia, unspecified joint Night sweats Chronic neck pain Bilateral hip pain Sacroiliitis (CMS/HCC) Class 1 obesity due to excess calories with serious comorbidityand body mass index (BMI) of 31.0 to 31.9 in adult Primary hypertension (CMS/HCC) Gastroesophageal reflux disease, unspecified whether esophagitis present Hypercholesteremia (CMS/HCC) Expected: 05/07/2024 (Approximate), Expires: 05/07/2025[facility] HealthcareComment on above:Expected: 05/07/2024 (Approximate), Expires: 05/07/2025Start: 05-07-2024 End: 87-18-6503Hmqlmkwcywqyx metabolic 2000 panel - Serum or PlasmaComprehensive metabolic panel Lab Routine Arthralgia, unspecified joint Night sweats Chronic neck pain Bilateral hip pain Sacroiliitis (CMS/HCC) Class 1 obesity due to excess calories with serious comorbidity and body mass index (BMI) of 31.0 to 31.9 in adult Primary hypertension (CMS/HCC) Gastroesophageal reflux disease, unspecified whether esophagitis present Hypercholesteremia (CMS/HCC) Expected: 05/07/2024 (Approximate), Expires: 05/07/2025[facility] HealthcareComment on above: Expected: 05/07/2024 (Approximate), Expires: 05/07/2025Start: 05-07-2024 End: 80-50-7846Udpwzqgvvfw sedimentation rateSedimentation rate, automated Lab Routine Arthralgia, unspecified joint Night sweats Chronic neck pain Bilateral hip pain Sacroiliitis (CMS/HCC) Class 1 obesity due to excess calories with serious comorbidity and body mass index (BMI) of 31.0 to 31.9 in adult Primary hypertension (CMS/HCC) Gastroesophageal reflux disease, unspecified whether esophagitis present Hypercholesteremia (CMS/HCC) Expected: 05/07/2024 (Approximate), Expires: 05/07/2025[facility] HealthcareComment on above:Expected: 05/07/2024 (Approximate), Expires: 05/07/2025Start: 05-07-2024 End: 02-99-5282DJO-B27 antigenHLA-B27 antigen Lab Routine Arthralgia, unspecified joint Night sweats Chronic neck pain Bilateral hip pain Sacroiliitis (CMS/HCC) Class 1 obesity due to excess calories with serious comorbidity and b maico mass index (BMI) of 31.0 to 31.9 in adult Primary hypertension (CMS/HCC) Gastroesophageal reflux disease, unspecified whether esophagitis present Hypercholesteremia (CMS/HCC) Expected: 05/07/2024(Approximate), Expires: 05/07/2025[facility] HealthcareComment on above:Expected: 05/07/2024 (Approximate), Expires: 05/07/2025Start: 05-07-2024 End: 29-49-9433Pitgz 1996 panel - Serum or PlasmaLipid panel Lab Routine Arthralgia, unspecified joint Night sweats Chronic neck pain Bilateral hip pain Sacroiliitis (CMS/HCC) Class 1 obesity due to excess calories with serious comorbidity and bodymass index (BMI) of 31.0 to 31.9 in adult Primary hypertension (CMS/HCC) Gastroesophageal reflux disease, unspecified whether esophagitis present Hypercholesteremia (CMS/HCC) Expected: 05/07/2024 (Freeman roximate), Expires: 05/07/2025[facility] Healthcare Work Phone: Comment on above:Expected: 05/07/2024 (Approximate), Expires: 05/07/2025Start: 05-07-2024 End: 39-02-4338Fdddyha Ab [Titer] in Serum by ImmunofluorescenceANA Lab Routine Arthralgia, unspecified joint Night sweats Chronic neck pain Bilateral hip pain Sacroiliitis (CMS/HCC) Class 1 obesity due to excess calories with serious comorbidity and body mass index (BMI) of 31.0 to 31.9 in adult Primary hypertension (CMS/HCC) Gastroesophageal reflux disease, unspecified whether esophagitis present Hypercholesteremia (CMS/HCC) Expected: 05/07/2024 (Approximate), Expires: 05/07/2025[facility] HealthcareComment on above:Expected: 05/07/2024 (Approximate), Expires: 05/07/2025Start: 05-07-2024 End: 61-04-2325Gkfurtbfws factor [Units/volume] in Serum or PlasmaRheumatoid factor Lab Routine Arthralgia, unspecified joint Night sweats Chronic neck pain Bilateral hip pain Sacroiliitis (CMS/HCC) Class 1 obesity due to excess calories with serious comorbidity and body mass index (BMI) of 31.0 to 31.9 in adult Primary hypertension (CMS/HCC) Gastroesophageal reflux disease, unspecified whether esophagitis present Hypercholesteremia (CMS/HCC) Expected: 05/07/2024 (Approximate), Expires: 05/07/2025[facility] HealthcareComment on above:Expected: 05/07/2024 (Approximate), Expires: 05/07/2025Start: 05-07-2024 End: 28-01-5992Hunkv [Mass/volume] in Serum or PlasmaUric acid Lab Routine Arthralgia, unspecified joint Night sweats Chronic neck pain Bilateral hip pain Sacroiliitis (CMS/HCC) Class 1 obesity due to excess calories with serious comorbidity and body mass index (BMI) of 31.0 to 31.9 in adult Primary hypertension (CMS/HCC) Gastroesophageal reflux disease, unspecified whether esophagitis present Hypercholesteremia (CMS/HCC) Expected: 05/07/2024 (Appro ximate), Expires: 05/07/2025[facility] HealthcareComment on above:Expected: 05/07/2024 (Approximate), Expires: 05/07/2025Start: 05-07-2024 End: 52-13-2155CR Cervical spine 2 or 3 ViewsXR cervical spine 2 or 3 views Imaging Routine Chronic neck pain Expected: 05/07/2024, Expires: 05/07/2025[facility] HealthcareComment on above:Expected: 05/07/2024, Expires: 05/07/2025Start: 05-07-2024 End: 20-45-9237VP Hip - left 3 ViewsXR hip left 2 or 3 views Imaging Routine Bilateral hip pain Expected: 05/07/2024, Expires: 05/07/2025[facility] Comment on above:Expected: 05/07/2024, Expires: 05/07/2025Start: 05-07-2024 End: 60-13-8574RR Hip - right 3 ViewsXR hip right 2 or 3 views Imaging Routine Bilateral hip pain Expected: 05/07/2024, Expires: 05/07/2025[facility] Comment on above:Expected: 05/07/2024, Expires: 05/07/2025Start: 05-07-2024 End: 81-41-1433WX Lumbar spine 2 or 3 ViewsXR lumbar spine 2 or 3 views Imaging Routine Lumbosacral strain, initial encounter Expected: 05/07/2024, Expires: 05/07/2025[facility] HealthcareComment on above:Expected: 05/07/2024, Expires: 05/07/2025Start: 05-07-2024 End: 99-73-6198CQ Shoulder - left 2 ViewsXR shoulder 2+ views left Imaging Routine Rotator cuff arthropathy of both shoulders Expected: 05/07/2024, Expires: 05/07/2025[facility] HealthcareComment on above:Expected: 05/07/2024, Expires: 05/07/2025Start: 05-07-2024 End: 68-97-9590BD Shoulder - right 2 ViewsXR shoulder 2+ views right Imaging Routine Rotator cuff arthropathy of both shoulders Expected: 05/07/2024, Expires: 05/07/2025[facility] HealthcareComment on above:Expected: 05/07/2024, Expires: 05/07/2025Start: 05-07-2024 End: 40-72-2094Ftnomtv encounter qjegbqjbg06/13/2024 8:40 AM EST Office Visit [facility] [address] [place] [address] [place] [address] [place] [address] ArrivedNOALLIANCE [facility] FMComment on above:ArrivedStart: 01-25-2024 Influenza vaccinationNONE HealthcareStart: 01-01-2024 End: 77-71-7770Anxigza encounter /08/2024 3:30 PM EDT Office [facility] Part of [address] [address] Yolanda Santoyo, BEAM DYER - ORAL AND MAXILLOFACIAL SURGERY RESIDENT [address] [place] [address] [address] [place] [address] 3 mos [facility] Part [facility] HospitalComment on above:3 mos gerdStart: 10-00-3673Gglfsshvq vaccinationFlu vaccine (Season Ended)[facility]ENTERStart: 10-08-2023 End: 96-58-0110Ttluq ca scrn not hi rsk indCOLORECTAL CANCER SCREENING, NOT HIGH RISK Screening for colon cancer Dysphagia, unspecified type 10/08/2023 1:15 PM [facility] HospitalStart: 10-08-2023 End: 20-26-1077Ghiafwlttyvplepalcgqmnwfgu transoral diagnostic ESOPHAGOGASTRODUODENOSCOPY Screening for colon cancer Dysphagia, unspecified type 10/08/2023 1:15 PM [facility] HospitalStart: 08-21-2023 End: 53-59-2015Hbringd encounter rhotpethx72/28/2024 10:00 AM EDT Office Visit [facility] OB [address] [place] [phone] Rj Shah, [address] [place] [address] [facility] BCP OBStart: 08-13-2023 End: 90-41-0261Ydoibla encounter zlcxzbisq98/20/2024 1:30 PM EDT Office Visit [facility] [address] [place] [address] Donna Steen, BEAM DYER-ORAL AND MAXILLOFACIAL SURGERY RESIDENT [address] [facility] [address] [place] [address] [facility]/Sleep MedicineStart: 07-04-2023 End: 89-15-9253Ocemfxovlldv / ancillary services opkblahume57/09/2024 11:15 AM EST Ancillary Procedure [facility] [address] [facility] [address] [place] [address] [facility] FNR ULTRASOUNDStart: 07-02-2023 End: 60-72-2607Catpxsg encounter henjipwyw62/07/2024 2:15 PM EST Office Visit [facility] Gastroenterology [address] [place], [place] [address] Yolanda Santoyo, BEAM DYER - ORAL AND MAXILLOFACIAL SURGERY RESIDENT [address] [facility] [address] [place], [place] [id number] 3 wks/ pancreatic insufficiency [facility] GastroenterologyComment on above:3 wks/ pancreatic insufficiencyStart: 06-20-2023 End: 81-51-8359Nobkxxpo Ukkhpbk7406/20/2023 7:30 PM EST Clinical Support [facility] - [facility] Disorders [address] [place] [address] [phone] [facility] Start: 42-72-8225Xgaqmlrmi for malignant neoplasm of breastMammogramNONE HealthcareStart: 39-50-3940URTBZ-19 Vaccine ()COVID-19 Vaccine ()[facility]ENTERStart: 04-10-6848Bpmqijeku vaccinationNONE HealthcareStart: 87-81-5472Abbdvejoy for malignant neoplasm of cervixPap SmearMOUNTAINSTAR HEALTHCARE HealthcareStart: 81-28-8973Rovcswhbb vaccinationFlu vaccine (#1)[facility]Start: 76-66-2072PF Breast - bilateral Screening [facility] Centertart: 93-69-3077Injccsskd mammography of bilateral breastsMM screening mammo BI w/CADP[facility] Hospital Start: 60-45-6256JkfwyuymvSalem Regional Medical Centertart: 70-91-7393YupxutontSalem Regional Medical Centertart: 10-57-4616ELbS,Tdap and Td Vaccines (2 - Td or Tdap)DTaP,Tdap and Td Vaccines (2 - Td or Tdap)[facility] Centertart: 82-34-1370IPvN/Tdap/Td vaccine (2 - Td or Tdap)DTaP/Tdap/Td vaccine (2 - Td or Tdap)[facility]Start: 05-64-2660Qfpseeee screenDiabetes screenWELLMONT LONESOME PINE [facility] HOSPITALStart: 58-56-2539Uyrvuprzk for malignant neoplasm of cervix [facility]Start: 57-68-6507Bgjawquvc for malignant neoplasm of cervixPap smearWELLMONT LON[facility]OME PINE [facility] HOSPITALStart: 36-67-9662Eahifqdqf B Vaccines (1 of 3 - 19+ 3-dose series)Hepatitis B Vaccines (1 of 3 - 19+ 3-dose series)[facility] HealthcareStart: 70-01-7887Ysctg BMI Follow Up PlanAdult BMI Follow Up Plan [facility] Centertart: 94-68-1189Bclva BMI ScreeningAdult BMI Screening [facility] Centertart: 52-95-5621Bxjabbgpk C screeningHepatitis C screen [facility]ITALStart: 54-94-2247CQI screeningHIV screenWELLMONT LONESOME PINE [facility]. [facility] HOSPITALStart: 25-58-7134Avodsjumlw MonitoringDepression MonitoringWELLMONT LONESOME PINE [facility]. [facility]IEW HOSPITALStart: 94-48-2513Vulsvrmavp ScreeningDepression Screening [facility] Centertart: 82-69-0382Quyigyl ScreeningTobacco Screening [facility] Centertart: 78-92-8936Rsgli panelLipidsBON MCKITRICK HOSPITALStart: 34-92-7132OTD Vaccines (1 of 1 - Standard series)MMR Vaccines (1 of 1 - Standard series)[facility]Start: 57-09-9671Kyupcnxrs B vaccine (1 of 3 - 3-dose series)Hepatitis B vaccine (1 of 3 - 3-dose series)[facility]Start: 05-60-7452Suosiodnq for malignant neoplasm of colonSaint Joseph Hospital West Surgical PathologySurgical Pathology Lab Routine Screening for colon cancer Dysphagia, unspecified type Release Upon Ordering for 1 Occurrences starting 10/08/2023[facility] Work Phone: Comment on above:Release Upon Ordering for 1 Occurrences starting 10/08/2023THIN PREP TIS PAP AND HR HPV DNATHIN PREP TIS PAP AND HR HPV DNA Pathology and Cytology Routine Well woman exam with routine gynecological exam Ordered: 08/26/2024[facility] WestComment on above:Ordered: 08/26/2024US for pregnancyUS PELVIS-TRANSVAG IF INDICATED Imaging Routine Cyst of ovary, unspecified laterality Pelvic pain in female Ordered: 06/26/2023[facility] Work Phone: comment on above:Ordered: 06/26/2023 Immunizations Immunization DateImmunizationNotesCare SfjiqkvgKnifynoa06-30-2058fjisxhx toxoid, reduced diphtheria toxoid, and acellular pertussis vaccine, adsorbedAgapito Colmenares MD Work Phone: [facility] WestNwrjpfurpo75-35-0823agqydwdko, injectable, quadrivalent, preservative freeCorey Alyssa DO Work Phone: [facility] WestLdllwxglod01-39-7040pwzzjbkai virus vaccine, unspecified formulationAgapito Colmenares MD Work Phone: [facility] CenterRetasm21-71-8835elxrfbmsv, injectable, quadrivalent, preservative freeCorey Alyssa DO Work Phone: [facility] WestPehradhqxt03-42-0926GYLTP-44 Shekhar Guaman (Pfizer)MD Agapito Colmenares Work Phone: [facility]03-31-2021COVID-19 Shekhar Guaman (Pfizer)MD Agapito Colmenares Work Phone: [facility]09-15-2020influenza, injectable, quadrivalent, preservative freeCorey Alyssa DO Work Phone: [facility] WestOxpdkcokmk22-77-3398zglspxv toxoid, reduced diphtheria toxoid, and acellular pertussis vaccine, adsorbedCorey Alyssa DO Work Phone: [facility] Payers DatePayer CategoryPayerPolicy [id number] Managed Care - [employer] Member Subscriber Plan / Payer (Effective 2023-Present) Name: Jelani Freeman Relation to Subscriber: Self Name: Jelani Freeman Payer ID: Not on file Type: Not on file Address: [address] [id number]-oet [id number] Health Insurance [id number].9.670363.412499.44297-44-8516Zglfwot 1.2.840.280705.1.13.693.2.7.3.653[id number] 2.840.1.397941.3.57[id number] 2.0.1.483826.3.57[id number] 2.16.840.1.254226.3.57[id number] 2.840.1.601131.3.57[id number] 2.16.840.1.440689.3.57[id number] 2.840.1.322185.3.57[id number] 2.840.1.630478.3.57[id number] 2..1.442683.3.57[id number] 2..1.294811.3.57[id number] 2..1.048178.3.57[id number] 2..1.895496.3.57[id number] 2.0.1.896690.3.57[id number] 2.0.1.476745.3.579.[id number] 2.0.1.988317.3.57[id number] 2.0.1.425623.3.579.2.607083-76-7121Vyjprhw0404871 2.840.1.677740.3.57[id number] 2.840.1.311050.3.57[id number] 2.16.840.1.450712.3.57[id number] 2.16.840.1.963791.3.57[id number] 2.16.840.1.214087.3.579.[id number] 2.16.840.1.623458.3.579.2.720685-19-8845Fzslrsb0977965 2.16.840.1.710518.3.57[id number] 2.16.840.1.246787.3.579.[id number] 2..840.1.419507.3.57[id number] 2.16.840.1.895657.3.57[id number] 2.16.840.1.534761.3.579.2.[id number] 2.16.840.1.737308.19 [id number] 2..840.1.7[id number] 2.840.1.2[id number] 2.840.1.934046.3.579.2.531 Social History DateTypeDetailFacilityStart: 06-13-2023 End: 12-94-1514Fln Assigned At [facility] [employer] Other Start: 47-80-6442Rso [facility] End: 80-16-0032Vxbpvsk smoking status NHISNever smoked tobacco (finding) [facility]: 11-13-2022 End: 88-75-6392Twbwjrl use and exposureSmokeless tobacco non-userDEVORAH BURRIS BROWN [facility]OSPITALSaroj [facility]ITALStart: 06-13-2023 End: [id number] of Social functionDEVORAH DIGNITY [facility] ST[facility] MEDICAL CENTERKENNA BROWN [facility] HOSPITALSaroj [facility]PITALStart: [id number] Assigned At BirthNot on fileAtrium Health Wake Forest Baptist High Point Medical Centertart: 06-26-2023 End: 06-17-0029Kgxqhje intakeLifetime non-drinker (finding)NOMS HealthcareStart: 92-14-4230Mjizfch CommentCaffine intake: 1 cup a dayMOUNTAINSTAR HEALTHCARE HealthcareStart: 68-56-9918Hmemfud intakeNot AskedWELLMONT LONESOME PINE [facility] VIEW HOSPITALStart: 08-07-2022 Physical abuseDeniesAtrium Health Wake Forest Baptist High Point Medical Centertart: [phone] Comment rarelyDEVORAH MCKITRICK HOSPITALStart: 53-88-4940Iwikgg identityIdentifies as female gender (finding)[facility]OS[facility]ITALStart: 05-76-0931Klznfq orientationHeterosexual (finding)[facility] HOSPITALTobacco smoking status NHISTobacco smoking consumption unknownAtrium Health Wake Forest Baptist High Point Medical Centerexual Orientation [facility] start: 42-49-5342DynCemtcx (finding)[facility] Medical CenterHow often do you need to have someone help you when you read instructions, pamphlets, or other written material from your doctor or pharmacy [SILS]NeverNOMS HealthcareWithin the last year, have you been afraid of your partner or ex-partner?NoNOMS HealthcareDo you belong to any clubs or organizations such as faith groups, unions, fraternal or athletic groups, or [...] the time - these days [OSQ]To some extentNONE Healthcare(I/We) worried whether (my/our) food would run out before (I/we) got money to buy more.Never trueNONE Healthcare Medical Equipment Procedure CodeEquipment CodeEquipment Original TextEquipment IdentifierDatesClip Int L235cm Wrk Chn Dia2.8mm Opn 11mm Braid Cath Rot Bx/10 - [id number]: 94-26-5274Utne Hemo L235cm Wrk Chn Thelma Opn 17mm Braid Cath Rot - [id number]: 10-08-2023 Goals DatePatient GoalDesired Activity/State Functional Status DqsqPhoniamasmOqunjrVljsepte67-90-8291Xeiwrai Health Questionnaire 2 item (PHQ- 2) [Reported]NOMS Upzxpvroui42-86-5066Pvorp score [AUDIT-C]0 02/16/2025 11:13 AM EDT Mychart, GenericNOOzarks Medical CenterHgsbgpbvlb67-86-2600Ecj often to you have a drink containing alcohol?Never 02/16/2025 11:13 AM EDT Mychart, Generic NeverSaint Joseph Hospital WestQehwknfcog00-87-0428Poxejccvvs statusPatient does not drink 02/16/2025 11:13 AM EDT Mychart, Generic Patient does not drinkSaint Joseph Hospital WestUaijjgoavf63-43-6077Ymv often do you have 6 or more drinks on 1 occasion?Never 02/16/2025 11:13 AM EDT Mychart, Generic NeverNOOzarks Medical CenterXnzlwijnqo90-99-3833Woxhwaxmko StatusN/AExec[facility] Clinical Notes 02-14-2021 to 02-25-2025 Note Date & IiyoPmcuTjkqlpmv55-62-5407 Miscellaneous Notes* Telephone Encounter - GAMAL Thrasher - 02/25/2025 9:01 AM EDT PAP mask and supplies order with supportive documentation [facility]ed to [facility]. documented in this encounterCommunity Regional Medical Center10-03-2025 Telephone encounter Note* Telephone Encounter - ArmidaGAMAL Yepez - 02/25/2025 9:01 AM EDT PAP mask and supplies order with supportive documentation faxed to [facility] PhaseRxEwxzak14-76-9339 History of Present illness Narrative* Donna Steen [...] humidifier. Cleaning supplies with soap and water. Derby Sleepiness Scale: Sitting and Reading: (!) Moderate [...] mouth in the morning., Disp: , Rfl: bomodt-yxbbyhkf-dofezku (CREON) 36,000-114,000- 180,000 unit capsule,delayed release(DR/EC), Take [...] Resource Strain: Low Risk (02/16/2025) [facility] Overall Financial Resource Strain (CARDIA) Difficulty of Paying Living Expenses: Not very hard Food Insecurity: No Food Insecurity (02/16/2025) Received from [facility] Hunger Vital Sign Worried About Running Out of Food in the Last Year: Never true Ran Out of Food in the Last Year: Never true Transportation Needs: No Transportation Needs (02/16/2025) Received from [facility] PRAPARE - Transportation Lack of Transportation (Medical): No Lack of Transportation (Non-Medical): No Physical Activity: Insufficiently Active (02/16/2025) Received from [facility] Exercise Vital Sign Days of Exercise per Week: 1 day Minutes of Exercise per Session: 20 min Stress: Stress Concern Present (02/16/2025) Received from [facility] [place] [facility] Occupational Health - Occupational Stress Questionnaire Feeling of Stress : To some extent Social Connections: Moderately Integrated (02/16/2025) Received from [facility] Social Connection and Isolation Panel [NHANES] Frequency of Communication with Friends and Family: Once a week Frequency of Social Gatherings with Friends and Family: Once a week Attends Adventist Services: More than 4 times per year Active Member of Clubs or Organizations: Yes Attends Club or Organization Meetings: More than 4 times per year Marital Status: Interpersonal Safety: Not At Risk (02/16/2025) Received from [facility] Humiliation, Afraid, Rape, and Kick questionnaire Fear of Current or Ex-Partner: No Emotionally Abused: No Physically Abused: No Sexually Abused: No Housing Instability: Low Risk (02/16/2025) Received from [facility] Housing Stability Vital Sign Unable to Pay [...] machine if not completed already. Tax ID: [id number] Scheduling Instructions: Length of Need: 12 months [...] not to drive if sleepy, and to pulley maintainer if sleepiness occurs while driving. Above plan [...] that have escaped final proofreading. Donna Steen [facility] Office: [phone] 12:44 PM on 02/24/2025 CC: MD Donna Callaway APRN-CNP 02/24/25 1245 documented in this [facility]10-01-2025 Instructions* Patient Instructions* TED Paul - 02/23/2025 3:00 PM EDT If you re looking for general health and wellness resources, please visit the [email or web address]. documented in this encounterCommunity Regional Medical Center09-24-2025 History of Present illness Narrative* Ai Reynolds [...] Daily No follow-ups on file. Ai Reynolds APRN.ORAL AND MAXILLOFACIAL SURGERY RESIDENT documented in this encounterSaint Joseph Hospital WestUlipqwlfou27-66-9976 Telephone encounter Note* Telephone Encounter - Berenice Maguire - 02/16/2025 9:12 AM EDT Vm left Sd, my name is Jelani Sullivan. Date of is [phone] am calling because I recently got a blood pressure monitor and using the Zeo freeman with that and my blood pressure is very high and it recommended that I call a , so I normally go to see Dr. Foy in [place], but but I am in [place], so I was hoping I could get an appointment at free on office today or soon whenever you have availability. So if you could give me a call back, my phone number is [phone] again. My name is Jelani Sullivan. It isJohn's with [place] [phone], thank you. I tried to send this message to the Pool, but it would not come up in the routing [facility] WestOemckwhupj94-84-2173 Miscellaneous Notes* Telephone Encounter - Berenice Andrez - 02/16/2025 9:12 AM EDT Vm left Sd, my name is Jelani Sullivan. Date of is [phone] am calling because I recently got a blood pressure monitor and using the Zeo freeman with that and my blood pressure is very high and it recommended that I call a drToi, so I normally go to see Dr. Foy in [place], but but I am in [place], so I was hoping I could get an appointment at free on office today or soon whenever you have availability. So if you could give me a call back, my phone number is [phone] again. My name is Jelani Sullivan. It isJohn's with [place] A [place] [phone], thank you. I tried to send this message to the Pool, but it would not come up in the routing documented in this encounterSaint Joseph Hospital WestYolochugwp27-34-2064 History of Present illness Narrative* Ida Guidry, [...] concerned with upcoming mission vacation trip in [place], leaving next week. Medications Current Outpatient Medications: [...] Breast cancer Mother Jennifer Overmyer Cancer Mother Jennifer Overmysara Irritable bowel syndrome Maternal Grandmother Other [...] Patient is scheduled for mission trip [facility] [place], [facility] next week. Procedure: This note was created with the assistance of a speech recognition program. While intending to generate a timely document that accurately reflects the content of the visit, no guarantee can be provided that every grammatical or spelling mistake has been or will be identified or corrected. Thank you for your understanding. Ida Guidry DPM documented in this [facility]07-01-2025 Instructions* Patient Instructions* Ida Guidry DPM - 11/23/2024 2:15 PM EDT As noted documented in this [facility]06-30-2025 Telephone encounter Note* Telephone Encounter [...] her predniSONE on 09/11/2023. ([facility]armacy: [facility]) [facility] WestItmorpgmhi59-88-3691 Miscellaneous Notes* Telephone Encounter - Chritsopher Rivers - 11/22/2024 8:44 AM EDT Pt left a message over the weekend requesting a steroid as she is going on vacation on November 28. She mentioned that her plantar fasciitis is flaring up as she has been wearing flip flops. You last saw her in the office on 07/18/2022 and last prescribed her predniSONE on 09/11/2023. (Pharmacy: [facility]) documented in this [facility]05-27-2025 Hospital Discharge instructions Patient Education [...] provider gives to you. In general: Take nepe-cyi-kwfjilg and prescription medicines only as told by [...] provider. Document Revised: 11/06/2020 Document Reviewed: 11/06/2020 [employer] Patient Education 2023 Fundly. Follow Up Care 10/04/2024 10:45:44 With:MOR HARPER, Maria Esther Salguero, URL Address: [facility] [address] [place] [address]- When: Unknown [facility] 05-27-2025 NotePatient Education Urology Renal Mass [...] gives to you. In general: ??? Take gock-xae-knsahad and prescription medicines only as told by [...] provider. Document Revised: 11/06/2020 Document Reviewed: 11/06/2020 [employer] Patient Education ? 2023 Fundly.[facility] 10-04-2024 Hospital Discharge instructions Patient Education 10/04/2024 [...] Follow these instructions at home: Medicines Take kzzg-vnh-eksdzvv and prescription medicines only as told by [...] or the blood stops without treatment. Take nrqs-xzb-ivwvqrj and prescription medicines only as told by your health care provider. Drink enough fluid to keep your urine pale yellow. This information is not intended to replace advice given to you by your health care provider. Make sure you discuss any questions you have with your health care provider. Document Revised: 01/10/2021 Document Reviewed: 01/10/2021 [employer] Patient Education 2023 Fundly. Follow Up Care 09/30/2024 16:14:43 With:[facility] Address: When: Unknown Comments:For procedure as scheduled. [facility] 05-12-2025 NotePatient Education Urology Hematuria, Adult [...] these instructions at home: Medicines ??? Take moew-hre-ekwtvbh and prescription medicines only as told by [...] the blood stops without treatment. ??? Take ehdi-yyz-plianse and prescription medicines only as told by your health care provider. ??? Drink enough fluid to keep your urine pale yellow. This information is not intended to replace advice given to you by your health care provider. Make sure you discuss any questions you have with your health care provider. Document Revised: 01/10/2021 Document Reviewed: 01/10/2021 [employer] Patient Education ? 2023 Fundly.[facility] 08-26-2024 History of Present illness Narrative* Altagracia [...] nursing note reviewed. Exam conducted with a ground surveillance systems operator present. Vitals: Estimated body mass index is [...] of: Rj Shah DO documented in this encounterSaint Joseph Hospital WestAxagxgukwu70-19-0499 History of Present illness Narrative* Agapito Colmenares [...] 6 months (around 12/12/2024). documented in this encounter68 H[address] StreetTcoiuefhdu77-36-2389 History of Present illness Narrative* Keiko Huff [...] acid; Future - Rheumatoid factor; Future - PANCOH; Future - Vitamin D 25 hydroxy Total; [...] or fail to improve. documented in this encounterSaint Joseph Hospital WestLuabbngtrw42-78-7456 Miscellaneous Notes* Telephone Encounter - GAMAL Thrasher - 10/22/2023 5:35 PM EDT PAP mask and supplies order with supportive documentation [facility] to [facility]. documented in this encounterCommunity Regional Medical Center05-29-2024 Telephone encounter Note* Telephone Encounter - GAMAL Thrasher - 10/22/2023 5:35 PM EDT PAP mask and supplies order with supportive documentation [facility]ed to [facility]. [facility]05-15-2024 History of Present illness Narrative* Ele Booth [...] Patient had EKG done on 07/25/2023 in [place]-results are in care everywhere. documented in this encounterBON [facility]05-[facility] Hospital Discharge instructions* Discharge Instructions* Ele Booth [...] any MRI procedures. documented in this encounterBON MCKITRICK [facility]OSPITAL04-26-2024 History of Present illness Narrative* Donna Steen APRN-ORAL AND MAXILLOFACIAL SURGERY RESIDENT - 09/19/2023 11:45 AM EDT Video Visit via Real-time Synchronous Audiovisual Provider [facility] [address] [place] [address] Patient Location: Other Patient Location French Professor: None Video Visit Consent Statement: I discussed [...] that there are some limitations compared to cumc-qb-zatu evaluations. We elected to proceed. Jelani Freeman [...] use phone/computer in bed? Yes Number of dkyzeb-eh-zng-night awakenings per night? 1 Cause of awakenings [...] mouth in the morning., Disp: , Rfl: rdrhmb-luhedygh-wxgissk (CREON) 36,000-114,000- 180,000 unit capsule,delayed release(DR/EC), Take [...] 12/12/2014 16:25 No results found. Sleep Data: Derby Sleepiness Scale Sitting and Reading: (!) Moderate [...] apnea, unspecified type - Ambulatory referral to [facility] Sleep Medicine CPAP use counseling [...] to stop the activity if sleepiness occurs (pulley maintainer at the next safe opportunity if driving). [...] TED Paul 09/29/23 0847 documented in this encounterHolden Memorial HospitalMotivity Labs04-26-2024 Instructions* Patient Instructions* TED Paul - 09/19/2023 11:45 AM EDT If you re looking for general health and wellness resources, please visit [facility] campusedicTBT [email or web address]. documented in this encounterCommunity Regional Medical Center03-18-2024 Miscellaneous Notes* Telephone Encounter - Terri Beverly - 08/11/2023 9:30 AM EDT PT is in need of a 30 min spot not a 15 min spot / PT was scheduled for a Video Visit with SAURAV documented in this encounterCommunity Regional Medical Center03-18-2024 Telephone encounter Note* Telephone Encounter - Terri Siria - 08/11/2023 9:30 AM EDT PT is in need of a 30 min spot not a 15 min spot / PT was scheduled for a Video Visit with SAURAV [facility]02-21-2024 Miscellaneous Notes* Telephone Encounter - Rachel Kingsley CNA - 07/16/2023 12:37 PM EST Left voicemail to change to video visit with SAURAV on 08/13. Sent letter documented in this [facility]02-21-2024 Telephone encounter Note* Telephone Encounter - Rachel Kingsley CNA - 07/16/2023 12:37 PM EST Left voicemail to change to video visit with SAURAV on 08/13. Sent letter [facility]02-01-2024 History of Present illness Narrative* Beckie Sutton [...] Active Ambulatory Problems Diagnosis Date Noted Depression ([facility]) 11/12/2022 Difficulty walking 11/12/2022 Dysphagia 11/12/2022 Hypercholesteremia ([facility]) 11/12/2022 Hypertension ([facility]) 11/12/2022 Obesity 11/12/2022 Seasonal allergic rhinitis 11/12/2022 Unrefreshed by sleep 11/12/2022 Pancreatic insufficiency ([facility]) 01/20/2023 Resolved Ambulatory Problems Diagnosis [...] nursing note reviewed. Exam conducted with a ground surveillance systems operator present. Vitals: Estimated body mass index is [...] of: Rj Shah DO documented in this encounterSaint Joseph Hospital WestQmlhrnunlk78-61-0600 Miscellaneous Notes* Telephone Encounter - Trina Long - 06/05/2023 12:25 PM EST 06/05 Received 06/04 order Called pt to schedule [facility] sched at [facility] on [facility]/20 [facility]irmation [facility] for approval [facility] HST order and 06/04 Darrian notes in MM * Telephone Encounter - Sindi Tee MD - 06/05/2023 12:25 PM EST Ok for HST. Ordered as referral. * Telephone Encounter - Arlet Bowman - 06/05/2023 12:25 PM EST AUTH STARTED HST/NPR MMO primary documented in this encounterCommunity Regional Medical Center01-11-2024 Telephone encounter Note* Telephone Encounter - Trina Long - 06/05/2023 12:25 PM EST 06/05 Received 06/04 order Called pt to schedule HST sched at [facility] on 06/20 Confirmation emailed [facility] Tee for approval [facility] HST order and 06/04 Darrian notes in MM [employer]01-11-2024 Telephone encounter Note* Telephone Encounter - Sindi Tee MD - 06/05/2023 12:25 PM EST Ok for HST. Ordered as referral. [employer] Work Phone: [phone] Telephone encounter Note* Telephone Encounter - Arlet Bowman - 06/05/2023 12:25 PM EST AUTH STARTED HST/NPR MMO primary [employer]01-27-2023 Evaluation note* Encounter Date Diagnosis Assessment Notes Treatment Notes Treatment Clinical Notes May, GERD (gastroesophageal reflux di sease) (ICD-10 - K21.9) [facility] [employer] Other 01-21-2023 Evaluation note* Encounter Date Diagnosis [...] or fevers. May,Hematuria, unspecified (ICD-10 - R31.9) [facility] [employer] Other 01-03-2023 Evaluation note* Encounter Date Diagnosis Assessment Notes Treatment Notes Treatment Clinical Notes May, Contact with and (urias spected) exposure to covid-19 (ICD-10 - Z20.822) [facility] [employer] Other 12-21-2022 Evaluation note* Encounter Date Diagnosis Assessment Notes Treatment Notes Treatment Clinical Notes Apr, Dysphagia (ICD-10 - R13.10) [employer] Other 12-13-2022 Procedure [facility]12-09-2022 Evaluation note* Encounter Date Diagnosis Assessment Notes Treatment Notes Treatment Clinical Notes Apr, Contact with and (urias spected) exposure to other viral communicable diseases (ICD-10 - Z20.828) [employer] Other 11-29-2022 Evaluation note* Encounter Date Diagnosis Assessment Notes Treatment Notes Treatment Clinical Notes Mar, Difficulty in swallowing (ICD-10 - R13.10) [facility] [employer] Other 09-07-2022 Evaluation note* Encounter Date Diagnosis Assessment Notes Treatment Notes Treatment Clinical Notes Jan, GERD (gastroesophageal reflux di sease) (ICD-10 - K21.9) [employer] Other 08-15-2022 Evaluation note* Encounter Date Diagnosis Assessment Notes Treatment Notes Treatment Clinical Notes Dec, Contact with and (urias spected) exposure to other viral communicable diseases (ICD-10 - Z20.828) [employer] Other 08-07-2022 Evaluation note* Encounter Date Diagnosis Assessment Notes Treatment Notes Treatment Clinical Notes Dec, Exposure to COVID-19 virus (ICD- 10 - Z20.822) [employer] Other 02-17-2022 Evaluation note* Encounter Date Diagnosis [...] Patient care instructions given in writting by [facility] At Home document. [employer] Other 11-23-2021 Evaluation note* Encounter Date Diagnosis Assessment Notes Treatment Notes Treatment Clinical Notes Mar, Contact with and (urias spected) exposure to other viral communicable diseases (ICD-10 - Z20.828) Drink plenty fluids, get plenty of rest. Notify [facility] of your family members positive Covid result. Mar,Other Additional time spent conducting pre-visit phone call, screening for symptoms, instructions on social distancing, application and removal of PPE, and cleaning of examination room, equipment and supplies was preformed. Patient education given for testing methodology and results. Patient care instructions given in writting by [facility] At Home document. [employer] Other 10-12-2021 Evaluation note* Encounter Date Diagnosis Assessment Notes Treatment Notes Treatment Clinical Notes Feb, Dysuria (ICD-10 - R30.0) Feb,cute cystitis with hematuria (ICD-10 - N30.01) Drink plenty fluids, get plenty of rest. Take the Macrobid as prescribed until gone. Take the Pyridium as prescribed until gone. Follow-up with your family physician if no improvement in 2 to 3 days [employer] Other 09-22-2021 Evaluation note* Encounter Date Diagnosis [...] Patient care instructions given in writting by [facility] Care At Home document. Additional time spent conducting pre-visit phone call, screening for symptoms, instructions on social distancing, application and removal of PPE, and cleaning of examination room, equipment and supplies was preformed. Patient education given for testing methodology and results. Patient care instructions given in writting by [facility] Care At Home document. [place] [employer] Other Evaluation + Plan note Future Appointments Appointment Date:10/19/2024 11:00:00 AM Scheduled Provider:Maria Esther JUARES MD [facility] Bernadine Appointment Type:URO Procedure 15 min [facility] [place] evaluation + Plan note Future Appointments Appointment Date:10/19/2024 11:00:00 AM Scheduled Provider:Maria Esther [facility]UARES [facility]O Procedure 15 min Diagnostic Tests Pending * Urine Cytology ([facility]) 10/04/24 [facility] evaluation noteNo assessment information available [facility] Work Phone: Evaluykkit noteNo InformationNort [employer] Other Evaluation note* Diagnosis Chronic GERD documented in this encounter [facility] YOGITECHaluation note* Diagnosis Cyst of ovary, unspecified laterality Pelvic pain in female Unspecified symptom associated with female genital organs documented in this encounter [facility] HealthcareEvaluation note* Diagnosis Screening for colon cancer Special screening for malignant neoplasms, colon Dysphagia, unspecified type documented in this encounter [facility] YOGITECHaluation note* Diagnosis Arthralgia, unspecified joint- Primary Night [...] 31.9 in adult documented in this encounter [facility] HealthcareEvaluation note* Diagnosis CRIS (obstructive sleep apnea)- Primary Obstructive sleep apnea (adult) (pediatric) Sleep apnea, unspecified type CPAP use counseling Class 2 obesity with body mass index (BMI) of 36.0 to 36.9 in adult, unspecified obesity type, unspecified whether serious comorbidity present documented in this encounter [facility]* Diagnosis Sleep apnea, unspecified type documented in this encounter [facility]* Diagnosis Well woman exam with routine gynecological exam Routine gynecological examination Encounter for screening mammogram for malignant neoplasm of breast H/O: hysterectomy Acquired absence of both cervix and uterus Other microscopic hematuria documented in this encounter [facility] HealthcareEvaluation note* Diagnosis Plantar fasciitis, left- Primary Inflammatory heel pain, left Difficulty walking Difficulty in walking Calcaneal spur, left documented in this encounter [facility] HealthcareEvaluation note* Diagnosis Primary hypertension- Primary Unspecified essential hypertension documented in this encounter [facility] HealthcareEvaluation note* Diagnosis CRIS (obstructive sleep apnea)- Primary Obstructive sleep apnea (adult) (pediatric) CPAP use counseling Obesity (BMI 30-39.9) BMI 37.0-37.9, adult documented [facility] and [facility] Author Malcolm Iglesias [facility] May 07, 2022 2:49pmNote Date/TimeDece2021 2:[place] [address] Gastroenterology H&P Signed Patient: Jelani Freeman MR#: [id number] : 1980 Acct:[id number] Age/Sex: 41 / F Adm Date: 2 Loc: Room: Type: [facility] Attending Dr: Malcolm Iglesias MD Copies to: [...] MD Documented By: Malcolm Iglesias MD 05/07/22 1787 Signed By: <Electronically signed by Malcolm Iglesias MD> 05/07/22 [address] [facility] Work Phone: History general Narrative - Reported* Type Description Date Medical History GERD Medical HistorydepressionSurgical [id number] HistoryPartial HysterectomyHospitalization HistoryChild [id number] History Hysterectomy [facility] Other History general Narrative - Reported* Type Description Date Medical History GERD Medical HistorydepressionMedical HistoryHypertensionSurgical HistoryD&C2002 Surgical HistoryPartial HysterectomyHospitalization HistoryChild x2 Hospitalization HistoryHy[facility] Other Hospital course Narrative No data available for this section [facility] Hospital Discharge instructions Additional Instructions DISCHARGE [...] NOT operate machinery such as power tools, Fluentifyn mowers, snow blowers, sewing machines, etc. for [...] Follow up with PCP. 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, COVID TEST FOR PROCEDURENoClearTax Other Reason for visit Narrative* Consultation (Routine) - Pending ReviewSpecialtyDiagnoses / ProceduresReferred By ContactReferred To ContactSleep Medicine / Pulmonary Medicine Diagnoses Sleep apnea, unspecified type Agapito Colmenares MD [address] [place] [address] Zz Do Not Use Pcj Pulm Sleep Med [address] [address] Referral IDStatusReasonStart DateExpiration DateVisits RequestedVisits [id number] Review Specialty Services Required [facility] Chief Complaint and Reason for Visit [...] cancer [Z12.11] Dysphagia, unspecified type [R13.10] Procedures ME COLON CA SCRN NOT HI RSK IND ME ESOPHAGOGASTRODUODENOSCOPY TRANSORAL DIAGNOSTIC ME EGD TRANSORAL BIOPSY SINGLE/MULTIPLE ME EGD BALLOON DILATION ESOPHAGUS <30 MM DIAM ME COLONOSCOPY W/BIOPSY SINGLE/MULTIPLE ME COLSC FLX W/RMVL OF TUMOR POLYP LESION SNARE TQ ME COLONOSCOPY W/BIOPSY SINGLE/MULTIPLE COLORECTAL CANCER SCREENING, NOT HIGH RISK ESOPHAGOGASTRODUODENOSCOPY Natasha Johnson MD [address] [place] [address] [facility] [id number] [place] [address] Referral IDStatusReasonStart DateExpiration DateVisits RequestedVisits [id number] PainPatient is here for right shoulder pain. [...] Home sleep study Agapito Colmenares MD [address] [place] [address] [facility] [address] [place] [address] Phone: [phone] Referral IDStatusReasonStart DateExpiration DateVisits RequestedVisits [id number]c ExamReason Onset DateCommentsAdvice Only11/22/2024Rx RequestReasonCommentsPlantar Fasciitis Jelani [...] MD Primary Care Provider Active Hafsa Ivey GLOVE MAKER-CAttending ProviderActive Team Status: Inactive Member Role Status Dates Agapito Colmenares MD Primary Care Provider Active Hebert Moody ProviderActive Team Status: Inactive Member Role Status Dates Agapito Colmenares MD Primary Care Provider Active Referral SelfAttending ProviderActive Team Status: Inactive Member Role Status Dates Agapito Colmenares MD Primary Care Provider, Attending Garth ruiz Active Team MemberRelationshipSpecialtyStart [place] [address] [place] [address] PCP - GeneralFamily Medicine06/13/23Team MemberRelationshipSpecialtyStart DateEnd Date Agapito Colmenares MD [address] [place] [id number] PCP - GeneralFamily Medicine11/11/22Team MemberRelationshipSpecialtyStart [place] [address] [place] [address] PCP - GeneralFamily Medicine06/13/23Team MemberRelationshipSpecialtyStart [place] [address] [place] [address] PCP - Medical [employer]02/04/2312 [place] [address] [place] [address] PCP - GeneralFamily Hedtvtrz13/13/24Team MemberRelationshipSpecialtyStart [place] [address] [place] [address] PCP - Medical [employer]02/04/2312 [place] [address] [place] [address] PCP - GeneralFamily Gnvjtauh82/13/24Team MemberRelationshipSpecialtyStart [place] [address] [place] [address] PCP - Medical [employer]02/04/2312 [place] [address] [place] [address] PCP - GeneralFamily Quulbbum99/13/24Team MemberRelationshipSpecialtyStart [place] [address] [place] [address] PCP - Medical [employer]02/04/2312 [place] [address] [place] [address] PCP - GeneralFamily Iicegybp25/13/24Team MemberRelationshipSpecialtyStart [place] [address] [place] [address] PCP - GeneralFamily Medicine06/18/23Team MemberRelationshipSpecialtyStart [place] [address] [place] [address] PCP - GeneralFamily Medicine06/18/23Team MemberRelationshipSpecialtyStart [place] [address] [place] [address] PCP - GeneralFamily Medicine06/18/23Team MemberRelationshipSpecialtyStart [place] [address] [place] [address] PCP - Medical [employer]02/04/2312 [place] [address] [place] [address] [facility] - [facility] Vhfrthhi53/13/24Team MemberRelationshipSpecialtyStart [place] [address] [place] [address] PCP - Medical [employer]02/04/2312 [place] [address] [place] [address] [facility] - [facility] Qbmvmiel18/13/24Team MemberRelationshipSpecialtyStart [place] [address] [place] [address] PCP - Medical [employer]02/04/2312 [place] [address] [place] [address] [facility] - [facility] Mnmiihpu21/13/24Team MemberRelationshipSpecialtyStart [place] [address] [place] [address] PCP - Medical [employer]02/04/2312 [place] [address] [place] [address] [facility] - [facility] Gdapqvrz00/13/24Team MemberRelationshipSpecialtyStart [place] [address] [place] [address] PCP - Medical [employer]02/04/2312 [place] [address] [place] [address] PCP - GeneralFamily Qgnsslzl19/13/24Team MemberRelationshipSpecialtyStart [place] [address] [place] [address] PCP - Medical [employer]02/04/2312 [place] [address] [facility] [address] PCP - GeneralFamily Fngtsctm16/13/24Team MemberRelationshipSpecialtyStart [place] [address] [place] [address] PCP - GeneralFamily Medicine06/18/23Team MemberRelationshipSpecialtyStart [place] [address] [facility] [address] PCP - GeneralFamily Medicine06/18/23 Goals (unrecognized section and content) Goals may be documented in a n alternate section INFORMATION SOURCE (unrecogn ized section and content) DATE CREATED AUTHOR 02/06/2022 [facility] DATE CREATED AUTHOR AUTHOR'S ORGANIZ ATION 06/14/2023 [facility] DATE CREATED AUTHOR AUTHOR'S ORGANIZ ATION 08/05/2023 [facility] DATE CREATED AUTHOR AUTHOR'S ORGANIZ ATION 09/21/2023 [facility] DATE CREATED AUTHOR AUTHOR'S ORGANIZ ATION 10/10/2023 [facility] DATE CREATED AUTHOR AUTHOR'S ORGANIZ ATION 05/15/2024 [facility] DATE CREATED AUTHOR AUTHOR'S ORGANIZ ATION 07/10/2024 [facility] DATE CREATED AUTHOR AUTHOR'S ORGANIZ ATION 09/21/2024 [facility] DATE CREATED AUTHOR AUTHOR'S ORGANIZ ATION 10/22/2024 [facility] DATE CREATED AUTHOR AUTHOR'S ORGANIZ ATION 11/05/2024 [facility] DATE CREATED AUTHOR AUTHOR'S ORGANIZ ATION 02/26/2025 [facility] DATE CREATED AUTHOR AUTHOR'S ORGANIZ ATION 02/28/2025 [facility] Continuous Active and Recently Administ [...] BE BASED ON THE PRIMARY CLINICAL RECORDS. [employer] [facility]. provides no warranty or guarantee of the accuracy or completeness of information in this document.
--- NOTE | 2025-04-04 13:27 | PM.CN ---
Consult Note: HPI Data of Consult Patient: known to practice within the last 3 years Consult date: 04/04/25 Requesting Physician: Basia Uribe MD Primary Care Provider: ELIN COLMENARES Consult Narrative Reason for consult: bilateral hip pain Narrative: 44yof who presents for in office injection. continues to have bilateral hip pain, will proceed with bilateral GTB injection. cc:: CC: Basia Uribe MD Review of Systems ROS Status of ROS 10 or more systems reviewed and unremarkable except as noted in history and below PFSH PFSH Medical History Swallowing study performed ?Z13.810 - Encounter for screening for upper gastrointestinal disorder (ICD-10) COVID-19 ?U07.1 - COVID-19 (ICD-10) PONV (postoperative nausea and vomiting) ?R11.2 - Nausea with vomiting, unspecified (ICD-10) ?Z98.890 - Other specified postprocedural states (ICD-10) Menopausal state ?N95.1 - Menopausal and female climacteric states (ICD-10) Fatigue ?R53.83 - Other fatigue (ICD-10) CRIS (obstructive sleep apnea) ?G47.33 - Obstructive sleep apnea (adult) (pediatric) (ICD-10) Irritable bowel ?K58.9 - Irritable bowel syndrome without diarrhea (ICD-10) Seasonal allergies ?J30.2 - Other seasonal allergic rhinitis (ICD-10) Hypertension ?I10 - Essential (primary) hypertension (ICD-10) Hypercholesteremia ?E78.00 - Pure hypercholesterolemia, unspecified (ICD-10) Dysphagia ?R13.10 - Dysphagia, unspecified (ICD-10) Difficulty walking ?R26.2 - Difficulty in walking, not elsewhere classified (ICD-10) Depression ?F32.A - Depression, unspecified (ICD-10) Surgical History H/O colonoscopy ?Z98.890 - Other specified postprocedural states (ICD-10) H/O cystoscopy ?Z98.890 - Other specified postprocedural states (ICD-10) H/O total hysterectomy ?Z90.710 - Acquired absence of both cervix and uterus (ICD-10) H/O dilation and curettage ?Z98.890 - Other specified postprocedural states (ICD-10) Family History Other Family history of CHF (congestive heart failure) Family history of cancer Social History Within the past year, how often did you have a drink containing alcohol: monthly or less Within the past year, how often did you have six or more drinks on one occasion: never Smoking status: Never smoker Second hand tobacco smoke exposure: No Non-prescribed substance use: denies use Previous occupational history: [employer] Known occupational exposures/hazards: No Highest level of school completed/degree received: Associate degree: academic program Meds Home Medications and Allergies Home Medications ?Medication ?Instructions ?Recorded ?Confirmed ?Type estradiol 1 mg tablet 0.5 mg PO DAILY 07/25/23 07/25/23 History famotidine 20 mg tablet 20 mg PO DAILY 07/25/23 07/25/23 History fluoxetine 20 mg capsule 40 mg PO BID 07/25/23 03/31/25 History metoprolol succinate 25 mg 25 mg PO DAILY 07/25/23 08/01/23 History tablet,extended release 24 hr pantoprazole 40 mg tablet,delayed 40 mg PO Q12H 07/25/23 08/01/23 History release rosuvastatin 5 mg tablet 5 mg PO DAILY 07/25/23 07/25/23 History cholestyramine 4 gram oral powder 4 g PO DAILY 03/31/25 03/31/25 History losartan 25 mg tablet 25 mg PO DAILY 03/31/25 03/31/25 History omega-3 fatty acids 500 mg PO DAILY 03/31/25 03/31/25 History Allergies Allergy/AdvReac Type Severity Reaction Status Date / Time No Known Allergies Allergy Verified 07/25/23 11:46 adhesive tape AdvReac Intermediate Redness of Verified 07/25/23 11:46 Skin Exam Narrative Exam Narrative: Psych-alert and oriented x 3.? Attentive and appropriate, constitutionally normal, displays normal mood and affect per situation.? There are no obvious deficits in memory, reasoning, or intellect.? Skin-no obvious rashes, bruising, erythema noted to the patient's area of pain. Extremities- extremities are warm with minimal edema and palpable pulses. Hip-tenderness to palpation is noted over the bilateral hip joint.? Pain is elicited with internal and external rotation of the hip.? Hip provocative maneuvers are positive and consistent with the patient's normal pain.? Coordination remains intact.? Gait remains antalgic. Assessment and Plan Assessment and Plan (1) Greater trochanteric bursitis of both hips: Plan 44yof who presents for in office injection. continues to have bilateral hip pain, so will proceed with bilateral greater trochanteric bursa injection. follow up in 3 months. procedure: bilateral greater trochanteric bursa injection medications: bupivacaine 0.25% 4cc, depomedrol 40mg x2 I explained the details of the procedure to the patient including the risks, benefits and alternatives. We had an informed discussion and the patient verbalized understanding and signed the consent form. All questions were answered appropriately.? A time out was performed.? The skin overlying the left lateral hip was prepped with alcohol x3. A sterile syringe containing the above medication was attached to a 25 gauge, 3.5 inch needle under strict aseptic technique. The greater trochanter and point of tenderness was palpated. At this point, the needle was then advanced through the subcutaneous tissue down to os. The needle was withdrawn slightly and the contents of the syringe were gently injected without any resistance. The needle was removed and pressure was applied to the injection site to decrease the incidence of ecchymosis and hematoma formation.? A sterile bandage was applied. The same procedure was then completed on the opposite side. Post procedural instructions were given to the patient.
== END 2025-04-04 12:44 | disposition home or self-care (01) ==
LOC: PM 12:43
PROVIDERS: PCP Family Medicine; Visit Provider Anesthesiology
DX: M70.62 Trochanteric bursitis, left hip (principal); M70.61 Trochanteric bursitis, right hip
CPT/HCPCS: 20610; J0665; J1010